=== PATIENT | male | born 1980 | race Caucasian/White ===

== ENCOUNTER → 2018-04-23 14:42 | Outpatient (CLI) | payer BC, SELFPAY ==
[2018-04-23 12:27] VITALS: BMI 21.1
== END ==
PROVIDERS: Family Provider Family Medicine; PCP Family Medicine; Referring Provider Physician Assistant Surgical; Visit Provider Physician Assistant Surgical
DX: J02.9 Acute pharyngitis, unspecified (principal)
CPT/HCPCS: 87081

== ENCOUNTER 2018-09-27 19:23 | Emergency (ER) | payer BC, SELFPAY ==
[2018-04-23 12:27] VITALS: BMI 21.1
[2018-09-27 19:24] VITALS: BP 139/90; PULSE 88; RESP 16; TEMP 36.8; O2SAT 97; BMI 20.4
--- NOTE | 2018-09-27 21:02 | ED.VIS.GEN ---
History of Present Illness Chief Complaint: Upper Extremity Injury Detail of Chief Complaint: Right forearm injury Informant: Patient Onset: Today Context: Gradual Onset Current Severity: Moderate Maximum Severity: Moderate Narrative: Patient states that he was bending over trying to nail a board onto some steps. He had his right hand on a railing. He lost his balance and fell forward, his left arm caught the railing and got twisted. He has pain and swelling to his right forearm. He is right-hand dominant. He has no paresthesias. Past Medical History - Allergies and Home Meds Allergies/Adverse Reactions: Allergies No Known Allergies Allergy (Verified 04/23/18 12:11) Primary Care Physician: Luis Riley MD [Primary Care Provider] - Prior records reviewed: Yes Past Medical History: - - Reviewed Smoking Status: Current every day smoker Drugs: - - History of narcotic abuse, currently on Suboxone. Review of Systems General: Denies: Chills, Fever Eyes: Denies: Visual changes - bilaterally ENT: Denies: Bilateral ear pain Cardiovascular: Denies: Chest pain Respiratory: Denies: Dyspnea Gastrointestinal: Denies: Abdominal pain Musculoskeletal: Reports: Arthralgias. Denies: Back pain Skin: Reports: Abrasions Neurological: Denies: Headache, Weakness, Parasthesia Hematologic: Denies: Easy bruising Allergy: Denies: Uticaria Physical Exam Vital Signs/Narrative: Vital Signs Temp Pulse Resp BP Pulse Ox 09/27/18 19:24 98.2 F 88 16 139/90 H 97 General: Well nourished, Well developed Head: Normocephalic ENT: Moist mucous membranes Neck: Supple Cardiovascular: Regular rate, Regular rhythm Respiratory: No distress, CTA bilaterally Abdomen: Soft, Nontender Extremities: Tenderness - Patient has palpable hematoma with tenderness over the volar right mid forearm. He has some superficial abrasions noted. He does have good distal pulses. He has flexion extension at the wrist and elbow without difficulty. There is currently no sign of compartment syndrome. Neurological: Oriented x3, Normal Strength, Normal Sensation Psychological: Normal affect Diagnostic/Tx/Re-eval Impressions Forearm X-Ray 09/27/18 21:08 IMPRESSION: Normal x-ray examination of the radius and ulna. Electronically Signed: Álvaro Jarrett DO at 21:28 EDT Tel , Service support , 09/27/18 21:08 Forearm 2 Views [RAD] Stat - Medical Decision Making Patient was given naproxen for pain. Test results discussed with the patient. He will continue to ice and elevate. He will be given naproxen for home. We discussed signs and symptoms of compartment syndrome for him to watch for. ED Disposition - Plan for ED Patient: Disposition: Home or Assisted Living Diagnosis: Crushing injury of right forearm Instructions: CONTUSION, Upper Extremity Prescriptions: Naproxen [Naprosyn] 500 mg PO BID PRN PRN #20 tablet PRN Reason: Pain Referrals: Luis Riley MD [Primary Care Provider] - As Needed
[2018-09-27] MEDS: Naproxen 500 MG Tablet PO (21:05)
--- NOTE | 2018-09-27 21:08 | RAD_ITS ---
STUDY: X-RAY - RIGHT RADIUS AND ULNA REASON FOR EXAM: Male, 38 years old. Arm swelling TECHNIQUE: 2 view(s) of the forearm. COMPARISON: None. FINDINGS: There is no demonstrated soft tissue swelling. Normal visualized radius. Normal visualized ulna. RAD/Forearm 2 Views IMPRESSION: Normal x-ray examination of the radius and ulna. Electronically Signed: Álvaro Jarrett DO at 21:28 EDT Tel , Service support ,
== END 2018-09-27 21:49 | disposition home or self-care (01) ==
PROVIDERS: Emergency Provider Emergency Medicine; Family Provider Family Medicine; PCP Family Medicine
DX: S57.81XA Crushing injury of right forearm, initial encounter (principal); S50.811A Abrasion of right forearm, initial encounter; W19.XXXA Unspecified fall, initial encounter; Y93.9 Activity, unspecified; Y92.9 Unspecified place or not applicable; F17.200 Nicotine dependence, unspecified, uncomplicated
CPT/HCPCS: 73090; 99283

== ENCOUNTER 2018-12-07 14:06 | Emergency (ER) | payer BC, SELFPAY ==
[2018-12-07 14:07] VITALS: BP 115/72; PULSE 86; RESP 16; TEMP 37.7; O2SAT 96; BMI 21.1
--- NOTE | 2018-12-07 14:15 | RAD_ITS ---
STUDY: X-RAY - LEFT FOOT CLINICAL: Male, 38 years old. Pain and swelling on the lateral aspect of the foot. TECHNIQUE: 3 view(s) of the foot. COMPARISON: None. FINDINGS: Normal talus, calcaneus, and tarsal bones. Normal visualized subtalar, talonavicular, calcaneocuboid, tarsal and tarsometatarsal articulations. Nondisplaced transverse fracture at the base of the fifth metatarsal. There is degenerative arthrosis of the metatarsophalangeal joint of the hallux . Normal tibial and fibular sesamoid bones. Normal interphalangeal joint of the great toe. Normal phalanges of the great toe. Normal second through fifth metatarsophalangeal joints. Normal interphalangeal joints and phalanges of the lesser toes. There is non-specific soft tissue swelling of the foot. RAD/Foot min 3 Views IMPRESSION: Nondisplaced transverse fracture at the base of the fifth metatarsal. Electronically Signed: Scooter English, at 14:50 EDT , Service support ,
--- NOTE | 2018-12-07 15:33 | ED.DEP ---
ED Disposition - Plan for ED Patient: Instructions: FRACTURE, Foot Referrals: Luis Riley MD [Primary Care Provider] - Cj Henriquez DO [STAFF PHYSICIAN] -
--- NOTE | 2018-12-07 15:35 | ED.VISSUMM ---
- ER Visit Summary Date of Service: 12/07/18 Chief Complaint: Left foot pain History of Present Illness: The patient is a 38 M presenting with left foot pain. Patient states he was running up the stairs last night. He states he fell and twisted his left foot. He woke up this morning and had persistent pain in his left foot and painful weightbearing. He did not hit his head or lose consciousness. He tried no medications at home. No other injuries. Physical Examination: Vitals are stable. Patient is afebrile. Alert no acute distress. HEENT exam is unremarkable. Neck is nontender Lungs are clear and equal bilaterally. Heart is regular rate and rhythm. Extremities tenderness along left fifth metatarsal with ecchymosis. Left ankle and knee are nontender. Normal pulses. Skin is warm and dry. No focal neurologic deficit. Remainder of exam is unremarkable. Emergency Department Course and Treatment: Left foot x-ray shows nondisplaced transverse fracture at the base of the fifth metatarsal. Patient is given crutches and boot orthosis and advised nonweightbearing. He declined pain medications. He is advised to use ice, elevation, NSAIDs. Advised to follow-up with [facility]. Advised return to ED for worsening complaints. Disposition: Discharge home Impression: Left fifth metatarsal fracture This note was generated with [employer] dictation software. It may contain incorrect words, spelling, and punctuation that were not noted in review of the chart prior to signing ED Disposition - Plan for ED Patient: Instructions: FRACTURE, Foot Referrals: Cj Henriquez DO [STAFF PHYSICIAN] - Luis Riley MD [Primary Care Provider] -
[2018-12-07 16:11] VITALS: BP 120/78; PULSE 87; RESP 14; O2SAT 100
== END 2018-12-07 16:11 | disposition home or self-care (01) ==
LOC: ED 15:38
PROVIDERS: Emergency Provider Emergency Medicine; Family Provider Family Medicine; PCP Family Medicine
DX: S92.355A Nondisplaced fracture of fifth metatarsal bone, left foot, initial encounter for closed fracture (principal); W10.9XXA Fall (on) (from) unspecified stairs and steps, initial encounter; Y93.02 Activity, running; Y92.9 Unspecified place or not applicable; Z72.0 Tobacco use
CPT/HCPCS: 73630; 99284

== ENCOUNTER → 2018-12-13 08:38 | Outpatient (CLI) | payer BC, SELFPAY ==
[2018-12-07 14:07] VITALS: BMI 21.1
--- NOTE | 2018-12-13 09:11 | CT_ITS ---
STUDY: CT LEFT FOOT REASON FOR EXAM: Male, 38 years old. Displaced fracture of the fifth metatarsal. Rolled foot one week ago while walking up steps. RADIATION DOSAGE (If Supplied By Facility): CTDIvol = ( 15.35 ) mGy, DLP = ( 357.60 ) mGycm TECHNIQUE: Thin section transaxial imaging of the foot was obtained, with sagittal and coronal reconstructed images. Individualized dose optimization techniques were used for this CT. COMPARISON: Left foot, December 07, 2018. FINDINGS: Normal talus, calcaneus, and tarsal bones. Normal visualized tibiotalar, subtalar, talonavicular, calcaneocuboid, tarsal and tarsometatarsal articulations. There is a nondisplaced transverse fracture through the base of the fifth metatarsal is noted on plain films. The first through fourth metatarsals are unremarkable. There is mild arthrosis of metatarsophalangeal joint of the great toe. Normal tibial and fibular sesamoid bones. Normal interphalangeal joint of the great toe. Normal phalanges of the great toe. Normal second through fifth metatarsophalangeal joints. Normal interphalangeal joints and phalanges of the lesser toes. The soft tissue structures are unremarkable. CT/Extremity Lower without Contra IMPRESSION: 1. Nondisplaced fracture of the base of the fifth metatarsal. 2. Mild degenerative changes of the first metatarsal phalangeal joint. Electronically Signed: Marcell Matthews DO at 20:36 EDT Tel [phone], Service support ,
--- NOTE | 2018-12-13 09:12 | RAD_ITS ---
STUDY: X-RAY CHEST REASON FOR EXAM: Male, 38 years old. Preoperative evaluation. TECHNIQUE: PA and lateral views of the chest. COMPARISON: None. FINDINGS: Hyperinflation. There is no demonstrated pleural abnormality. Normal size heart. Normal mediastinum and lorenzo. Normal visualized pulmonary arteries. Normal visualized aortic arch and descending thoracic aorta. Normal visualized thoracic spine. Normal visualized ribs, clavicles, and shoulders. There is no demonstrated abnormality of the visualized soft tissue structures of the upper abdomen. RAD/Chest PA and Lateral IMPRESSION: Hyperinflation. The lungs are clear. Electronically Signed: Scooter English, at 11:31 EDT , Service support ,
[2018-12-13 10:26] LABS: Absolute Lymphocyte Count 2.66 X10^3/uL (0.83-4.51); Absolute Neutrophil Count 5.5 X10^3/uL (2.0-7.7); Basophil# 0.07 X10^3/uL; Basophil% 0.8 % (0-1); Eosinophil# 0.16 X10^3/uL; Eosinophils% 1.7 % (0-5); Hematocrit 48.1 % (40-54); Hemoglobin 16.5 g/dL (13.0-16.5); Lymphocyte # 2.66 X10^3/ul (4.0); Lymphocyte % 28.8 % (19-41); Mean Corp Hgb Conc 34.3 g/dL (32-36); Mean Corpuscular Hgb 32.7 pg (27.0-32.0); Mean Corpuscular Volume 95.4 fL (80-94); Mean Platelet Vol. 10.1 fl (6.2-12.0); Monocyte# 0.78 X10^3/uL; Monocyte% 8.4 % (0-10); NRBC Flagged by Analyzer 0 % (0-5); Neutrophil # 5.54 X10^3/uL (2.7-7.7); Neutrophil % 59.9 % (47-70); Platelet Count 199 K/mm3 (150-450); RBC Distribution Width CV 12.3 % (11.6-14.6); RBC Distribution Width SD 43.4 fl (35.1-43.9); Red Blood Count 5.04 M/mm3 (4.6-6.2); White Blood Count 9.3 K/mm3 (4.4-11.0)
[2018-12-13 10:33] LABS: International Normalized Ratio 1.1; Prothrombin Time (Protime)PT. 13.8 SECONDS (11.7-14.9)
[2018-12-13 10:34] LABS: Partial Thromboplast Time 29.5 Seconds (24.1-36.2)
[2018-12-13 10:48] LABS: Anion Gap 6 (5-15); BUN 12 mg/dL (7-18); BUN/Creat Ratio 13.8 RATIO (10-20); Calcium,Total 9.3 mg/dL (8.5-10.1); Chloride 101 mmol/L (98-107); Creatinine, Serum 0.87 mg/dL (0.70-1.30); EST Glomerular Filtration Rate 104 mL/min (>60); Est Glom Filt Rate - Afr Amer 126 mL/min (>60); Glucose 85 mg/dL (74-106); Potassium 3.8 mmol/L (3.5-5.1); Sodium Level 137 mmol/L (136-145)
== END ==
PROVIDERS: Family Provider Family Medicine; PCP Family Medicine; Referring Provider Podiatrist Foot & Ankle Surgery; Visit Provider Podiatrist Foot & Ankle Surgery
DX: Z01.818 Encounter for other preprocedural examination (principal); F17.200 Nicotine dependence, unspecified, uncomplicated; S92.352A Displaced fracture of fifth metatarsal bone, left foot, initial encounter for closed fracture
CPT/HCPCS: 36415; 71046; 73700; 80048; 85025; 85610; 85730

== ENCOUNTER 2021-04-08 13:41 | Emergency (ER) | payer SELFPAY ==
[2021-04-08 13:42] VITALS: BP 120/82; PULSE 120; RESP 18; TEMP 36.1; O2SAT 98; BMI 19.8
[2021-04-08 16:09] LABS: Absolute Lymphocyte Count 1.94 X10^3/uL (0.83-4.51); Basophil# 0.06 X10^3/uL; Basophil% 0.6 % (0-1); Eosinophil# 0.07 X10^3/uL; Eosinophils% 0.7 % (0-5); Hematocrit 40.8 % (40-54); Lymphocyte # 1.94 X10^3/ul (0.83-4.51); Lymphocyte % 18.8 % (19-41); Mean Corp Hgb Conc 36.8 g/dL (32-36); Mean Corpuscular Hgb 40.7 pg (27.0-32.0); Mean Corpuscular Volume 110.6 fL (80-94); Mean Platelet Vol. 10.7 fl (6.2-12.0); Monocyte# 1.23 X10^3/uL; Monocyte% 11.9 % (0-10); NRBC Flagged by Analyzer 0 % (0-5); Neutrophil # 6.97 X10^3/uL (2.7-7.7); Neutrophil % 67.4 % (47-70); Platelet Count 219 K/mm3 (150-450); RBC Distribution Width SD 53.5 fl (35.1-43.9); Red Blood Count 3.69 M/mm3 (4.6-6.2); White Blood Count 10.3 K/mm3 (4.4-11.0)
[2021-04-08 16:35] LABS: Anion Gap 7 (5-15); BUN 5 mg/dL (7-18); BUN/Creat Ratio 7.7 RATIO (10-20); Calcium,Total 8.8 mg/dL (8.5-10.1); Chloride 102 mmol/L (98-107); Creatinine, Serum 0.65 mg/dL (0.70-1.30); EST Glomerular Filtration Rate 143 mL/min (>60); Est Glom Filt Rate - Afr Amer 173 mL/min (>60); Estimated Creatinine Clearance 145.38 ml/min; Glucose 102 mg/dL (74-106); Potassium 3.4 mmol/L (3.5-5.1); Sodium Level 137 mmol/L (136-145)
--- NOTE | 2021-04-08 16:38 | CT_ITS ---
STUDY: CT ABDOMEN AND PELVIS WITH CONTRAST REASON FOR EXAM: Male, 40 years old. Peritonitis. RADIATION DOSAGE (If Supplied By Facility): CTDIvol = ( 9.31 ) mGy, DLP = ( 641.81 ) mGycm TECHNIQUE: Transaxial images were obtained from the dome of the diaphragm to the symphysis pubis without oral contrast. IV 100mL Isovue-300 was administered. Sagittal and coronal images were reconstructed. Individualized dose optimization techniques were used for this CT. COMPARISON: None. FINDINGS: Minimal linear atelectasis at the right lung base. Lungs are otherwise clear. The visualized portions of the heart are within normal limits. Geographic fatty infiltration of the enlarged liver. No focal mass. 3 Normal spleen. Normal pancreas. Normal bilateral adrenal glands. There is a 2 mm nonobstructing calculus lower pole calyx of an otherwise normal right kidney. There is a 2 mm nonobstructing calculus lower pole of an otherwise normal left kidney. Normal visualized ureters. Normal visualized stomach. Normal small intestine. There is mild wall thickening of the sigmoid colon. The proximal colon is grossly normal. The appendix is visualized and appears normal. Normal abdominal aorta. Normal inferior vena cava. Normal retroperitoneum. Normal urinary bladder. Normal prostate no pelvic lymphadenopathy. No free air or free fluid is seen within the peritoneal cavity Normal abdominal wall. Normal osseous structures. CT/Abdomen/Pelvis W IV Cont ONLY IMPRESSION: 1. Bilateral nonobstructing renal calculi. There is no ureteral or urinary bladder abnormality. 2. Question sigmoid colitis. 3. Enlarged liver with geographic fatty infiltration. 4. Status post cholecystectomy. Electronically Signed: Marcell Matthews DO at 17:04 EST ,
[2021-04-08 16:39] VITALS: BP 106/84; PULSE 108; RESP 16; O2SAT 97
--- NOTE | 2021-04-08 16:39 | ED.VIS.GI ---
HPI HPI - GI History of Present Illness Chief Complaint: Abd Pain Informant: patient and parent Abdominal Pain/Flank Pain Onset: Weeks Context: Sudden Onset Timing: Continuous Quality: - (Intermittent) Location: Diffuse Current Severity: Mild Maximum Severity: Moderate Worsened by: Movement Relieved by: Nothing Nausea/Vomiting/Emesis GI Symptom: Positive for Nausea; Negative for Vomiting Diarrhea/Melena/Hematochezia GI Symptom: Negative for Diarrhea, Melena and Hematochezia Associated Symptoms Associated Symptoms: Negative for Dysuria, Frequency and Hematuria Narrative Narrative: Patient is a 40-year-old male who presents because of abdominal pain that started approximately 1 to 2 weeks ago. He has had increased abdominal girth over the past 1 month. He does admit to smoking 1 pack/day and averaging 8 drinks a day for the past 3 years. He denies history of liver disease, jaundice or ascites. He was told by his girlfriend that she thought he had blood when he urinated. He denies dysuria, frequency or urgency. He denies history of prostate problem. He does endorse night sweats for the past 2 months. He does not believe he has gained or lost any weight. He states his urine at times is dark. He denies history of hepatitis. Prior similar symptoms: No Recent Illness/Hospitalization: No [facility] Medical History Alcohol abuse Back pain Migraine Smoker SOB (shortness of breath) Home Medications buprenorphine-naloxone 1 film PO DAILY 03/18/15 [History Last Taken 12/07/18] amoxicillin-pot clavulanate 875 mg PO Q12H #20 tablet 04/08/21 [Rx Last Taken Unknown] hydrocodone-acetaminophen 1 tab PO Q6H PRN PRN 3 Days #10 tablet 04/08/21 [Rx Last Taken Unknown] Allergy/AdvReac Type Severity Reaction Status Date / Time No Known Allergies Allergy Verified 04/08/21 13:44 Family History Other Breast cancer Thyroid disorder Surgical History History of cholecystectomy Necks Fusion Social History (Updated 04/08/21 @ 16:[address] Steve Cardona MD) household members: significant other Smoking Status: Current every day smoker tobacco type: cigarettes alcohol intake: current alcohol intake frequency: 3 or more drinks per day substance use type: does not use ROS ROS ED Constitutional Constitutional ED: Reports sweats; Denies chills, fever(s), subjective or weight loss ENT ENT ED: Denies ear pain, rhinorrhea or sore throat Cardiovascular Cardiovascular: Denies chest pain, orthopnea, palpitations, paroxysmal nocturnal dyspnea or racing heartbeat Respiratory/Chest Respiratory/Chest: Denies cough, dyspnea, dyspnea on exertion, orthopnea, paroxysmal nocturnal dyspnea or sputum Gastrointestinal Gastrointestinal: Reports abdominal pain and nausea; Denies constipation, diarrhea, melena or vomiting Genitourinary Genitourinary ED: Reports hematuria; Denies dysuria or urinary frequency Musculoskeletal Musculoskeletal: Denies arthralgias, back pain, myalgias or neck pain Integumentary Denies abscess, Abrasions or rash Neurologic Neurologic: Denies headache(s) or weakness Psychiatric Psychiatric: Denies anxiety or depression Endocrine Endocrinology: Denies polydipsia, polyphagia or polyuria Hematologic/Lymphatic Hematologic/Lymphatic: Denies easy bleeding or easy bruising EXAM Physical Exam Const Vital Signs: 04/08/21 13:42 04/08/21 16:39 Temperature 96.9 F L Temperature Source Temporal Pulse Rate 120 H 108 H Respiratory Rate 18 16 Blood Pressure 120/82 H 106/84 H Blood Pressure Mean 94 91 Pulse Ox 98 97 Oxygen Delivery Method Room Air Room Air Positive well nourished and well developed; Negative for obese, cachectic, contractures or unkempt General Appearance ED: well developed and NAD; Negative for unkempt, cachectic, contractures or pallor Nutritional Appearance: Negative for cachectic or obese HEENT Reports TM's clear and moist mucous membranes HEENT Narrative: Nares patent. normocephalic and atraumatic Tympanic Membrane ED: Yes TM's clear Eyes PERRL and EOMs intact bilaterally General Eye ED: Yes scleral icterus; Negative for pale conjunctiva Neck no lymphadenopathy, supple and no JVD Resp normal respiratory effort and clear to auscultation bilaterally Cardio regular rate, regular rhythm, S1 normal heart sound, S2 normal heart sound and no murmurs GI no masses; Negative for non-tender or non-distended GI Narrative: There is an apparent fluid wave. There is appears to be shifting dullness to percussion as well. He has a reducible umbilical hernia. Inspection: abdominal distention Auscultation: hypoactive bowel sounds; Negative for normoactive bowel sounds Palpation: soft, tender other (Diffuse tenderness greater right than left.), guarding other (Bilaterally) and rebound tenderness present; Negative for rigid Back/Spine no CVA tenderness Back/Spine Narrative: Patient has scar noted to cervical fusion noted. Cervical Spine: Negative for cervical spine tenderness Thoracic Spine / Upper Back: Negative for thoracic spinal tenderness Lumbar Spine / Lower Back: Negative for lumbar spinal tenderness Extremity full ROM General Extremety ED: Negative for edema or tenderness General Extremity: Negative for edema Neuro CN's II-XII intact bilaterally and moves all extremities Sensorium / Orientation: alert, oriented to person, oriented to place and oriented to time Psych mental status grossly normal and thought process normal Appearance: Negative for unkempt Skin no wounds General Skin Exam: jaundice; Negative for pallor Lesions: no lesions Rashes: no rashes MDM MDM MDM Narrative Medical decision making narrative: Concern patient has liver failure due to alcohol use. Clinically he has peritonitis. Will obtain a CT to determine if there is any evidence of mass/malignancy. If CT confirms that there is a large ascites and no other abnormality will perform a diagnostic paracentesis to evaluate for spontaneous bacterial peritonitis. Nurse protocol was initiated. Additional labs were ordered. Lab Data Attestation: I reviewed the patient's lab results. Lab results narrative: CBC and differential are unremarkable. Basic metabolic panel is unremarkable. AST and ALT are elevated at 318 and 117 respectively with an alkaline phosphatase of 269. PT/INR is negative. CT reveals sigmoid colitis. Since he is an alcoholic cannot treat with Cipro metronidazole. Will treat with Augmentin. He was referred to Dr. Dewitt. Labs: Laboratory Results - last 24 hr 04/08/21 04/08/21 04/08/21 16:00 16:00 16:00 WBC 10.3 RBC 3.69 L Hgb 15.0 Hct 40.8 MCV 110.6 H MCH 40.7 H MCHC 36.8 H RDW Std Deviation 53.5 H RDW Coeff of Margaret 13.0 Plt Count 219 MPV 10.7 Immature Gran % (Auto) 0.600 Neut % (Auto) 67.4 Lymph % (Auto) 18.8 L [place] % (Auto) 11.9 H Eos % (Auto) 0.7 Baso % (Auto) 0.6 Absolute Neuts (auto) 7.0 Absolute Lymphs (auto) 1.94 Nucleated RBC % 0 PT INR Sodium 137 Potassium 3.4 L Chloride 102 Carbon Dioxide 28.0 Anion Gap 7 BUN 5 L Creatinine 0.65 L Estim Creat Clear Calc 145.38 Est GFR (MDRD) Af Amer 173 Est GFR (MDRD) Non-Af 143 BUN/Creatinine Ratio 7.7 L Glucose 102 Calcium 8.8 Total Bilirubin 0.90 Direct Bilirubin 0.47 H AST 318 H ALT 117 H Alkaline Phosphatase 269 H Total Protein 8.2 Albumin 3.0 L Globulin 5.2 H Lipase 69 L 04/08/21 17:15 WBC RBC Hgb Hct MCV MCH MCHC RDW Std Deviation RDW Coeff of Margaret Plt Count MPV Immature Gran % (Auto) Neut % (Auto) Lymph % (Auto) [place] % (Auto) Eos % (Auto) Baso % (Auto) Absolute Neuts (auto) Absolute Lymphs (auto) Nucleated RBC % PT 14.7 INR 1.2 Sodium Potassium Chloride Carbon Dioxide Anion Gap BUN Creatinine Estim Creat Clear Calc Est GFR (MDRD) Af Amer Est GFR (MDRD) Non-Af BUN/Creatinine Ratio Glucose Calcium Total Bilirubin Direct Bilirubin AST ALT Alkaline Phosphatase Total Protein Albumin Globulin Lipase Radiography Diagnostic Testing: Clinical Impression(s) from Imaging Studies Abdomen/Pelvis CT 04/08/21 16:38 IMPRESSION: 1. Bilateral nonobstructing renal calculi. There is no ureteral or urinary bladder abnormality. 2. Question sigmoid colitis. 3. Enlarged liver with geographic fatty infiltration. 4. Status post cholecystectomy. Electronically Signed: Marcell Matthews DO at 17:04 EST Reading Location ID and State: [facility] / [place] Tel [phone], Service support , Discharge Plan Triage Chief Complaint: Abd Pain ED Provider: Steve Cardona Dx/Rx/DC Orders Clinical Impression: Colitis, Alcoholism Instructions: ED Understanding Colitis Prescriptions: New amoxicillin-pot clavulanate [amoxicillin-pot clavulanate] 875 MG tablet 875 mg PO Q12H Qty: 20 RF: 0 hydrocodone-acetaminophen [hydrocodone-acetaminophen] 1 TABLET tablet 1 tab PO Q6H PRN PRN (Reason: Pain) 3 Days Qty: 10 RF: 0 No Action buprenorphine-naloxone 1 EACH film 1 film PO DAILY RF: 0 Primary Care Provider: Luis Riley Referrals: Alex Dewitt DO [STAFF PHYSICIAN] - 1-2 Weeks Luis Riley MD [Primary Care Provider] - 3-5 Days Disposition Disposition: Home, Self Care
[2021-04-08 17:13] LABS: AST(SGOT) 318 U/L (15-37); Alanine Aminotransfer ALT/SGPT 117 U/L (16-61); Alkaline Phosphatase 269 U/L (45-117); Bilirubin, Direct 0.47 mg/dL (0.00-0.30); Globulin 5.2 g/dL (2.2-4.2); Lipase 69 U/L (73-393); Protein, Total 8.2 g/dL (6.4-8.2)
[2021-04-08 17:40] LABS: International Normalized Ratio 1.2; Prothrombin Time (Protime)PT. 14.7 SECONDS (11.7-14.9)
[2021-04-08] MEDS: Ketorolac 15 MG/ML Vial IV (17:43)
[2021-04-08] MEDS: Amox/Clavulanate 875 MG Tablet PO (18:05)
[2021-04-08 18:11] VITALS: BP 127/84; PULSE 95; RESP 16; O2SAT 99
[2021-04-08 18:26] LABS: Lactic Acid 2.2 mmol/L (0.4-1.9)
[2021-04-08 21:21] LABS: Reflex Lactate? Y
== END 2021-04-08 18:11 | disposition home or self-care (01) ==
PROVIDERS: Emergency Provider Emergency Medicine; PCP Family Medicine; Visit Provider Emergency Medicine
DX: K52.9 Noninfective gastroenteritis and colitis, unspecified (principal); F10.20 Alcohol dependence, uncomplicated; R11.0 Nausea; F17.210 Nicotine dependence, cigarettes, uncomplicated
CPT/HCPCS: 74177; 80048; 80076; 83605; 83690; 85025; 85610; 96374; 99284; Q9967; A4216

== ENCOUNTER 2021-04-26 16:17 | Observation (INO) | payer MEDICAID, SELFPAY ==
[2021-04-26 16:18] VITALS: BP 135/91; PULSE 120; RESP 18; TEMP 36; O2SAT 99; BMI 21.7
--- NOTE | 2021-04-26 16:44 | EDS_ITS ---
HPI History of Present Illness Chief Complaint: Substance Abuse Informant: patient Narrative Narrative: Patient here for alcohol assistance. He has been in contact with 180. Alcoholic choices liquor drinks up to 1 L every 1.5 days. Morning tremors. No withdrawal seizures. He has been drinking like this for years. He was seen last month on the for abdominal pain with alcohol. No pancreatitis on CT head sigmoid diverticulitis treated with Augmentin. She still has discomfort there. No fevers. Been vomiting multiple times a day. He is able to hold down his liquor however. Yesterday diarrhea. Denies bloody vomiting or diarrhea. Urine is darker. Last drink was 4 PM today. He is on Suboxone for history of opiate dependence. He was sent here through 1 ED for evaluation and admission. He denies any homicidal or suicidal ideations. He is in agreement with the plan of care for admission. Prior similar symptoms: Yes PFSH PFS Medical History Alcohol abuse Anxiety Back pain Depression Migraine Smoker SOB (shortness of breath) Home Medications buprenorphine-naloxone 1 film PO DAILY 03/18/15 [History Last Taken 04/26/21] Allergy/AdvReac Type Severity Reaction Status Date / Time No Known Allergies Allergy Verified 04/26/21 16:20 Family History Other Breast cancer Thyroid disorder Surgical History History of cholecystectomy Necks Fusion Social History household members: significant other Smoking Status: Current every day smoker tobacco type: cigarettes alcohol intake: current alcohol intake frequency: 3 or more drinks per day substance use type: does not use ROS ROS ED Constitutional Constitutional ED: Denies chills, fever(s) or sweats Eyes Eyes: Denies change in vision ENT ENT ED: Denies dysphagia or sore throat Cardiovascular Cardiovascular: Denies chest pain, leg edema, palpitations or racing heartbeat Respiratory/Chest Respiratory/Chest: Denies cough, dyspnea or dyspnea on exertion Gastrointestinal Gastrointestinal: Reports abdominal pain, diarrhea, nausea and vomiting Genitourinary Genitourinary ED: Denies dysuria, hematuria or urinary frequency Musculoskeletal Musculoskeletal: Denies back pain, extremity pain or neck pain Integumentary Denies rash or wounds Neurologic Neurologic: Denies headache(s), paresthesias or weakness EXAM Physical Exam Const Vital Signs: 04/26/21 16:18 04/26/21 18:35 04/26/21 19:07 Temperature 96.8 F L 96.8 F L Temperature Source Temporal Temporal Pulse Rate 120 H 115 H 115 H Respiratory Rate 18 15 16 Blood Pressure 135/91 H 122/91 H 122/91 H Blood Pressure Mean 105 101 101 Pulse Ox 99 98 98 Oxygen Delivery Method Room Air Room Air Room Air Positive well nourished and well developed General Appearance ED: well developed and NAD HEENT Reports dry mucous membranes normocephalic and atraumatic Mouth ED: Yes dry mucous membranes Mouth: dry mucous membranes Eyes PERRL, EOMs intact bilaterally and conjunctivae normal General Eye ED: Yes normal appearance of both eyes Neck no lymphadenopathy and supple General: Negative for tenderness Chest Wall Chest: Negative for tenderness Resp normal respiratory effort and normal air movement Effort and Inspection: symmetric chest movement; Negative for respiratory distress Cardio regular rhythm and no murmurs Rate: tachycardic Peripheral Pulses: pulses 2+ throughout GI normal to inspection, nondistended, normoactive bowel sounds GI Narrative: Tenderness infraumbilical, mild distention, discussed no guarding or rebound. Palpation: Negative for guarding or rebound tenderness present Back/Spine no CVA tenderness and no thoracic nor lumbar tenderness Extremity normal to inspection General Extremety ED: Negative for edema or tenderness General Extremity: Negative for edema Neuro oriented x3 and no sensory deficits noted Sensorium / Orientation: awake and alert Skin no rashes or lesions noted and no wounds MDM MDM MDM Narrative Medical decision making narrative: Patient with a nonsurgical abdomen on exam. With his vomiting diarrhea was given IV fluids, abdominal labs were obtained th ere is no pancreatitis he has alcoholic hepatitis however labs more improved from his last evaluation on the . Tox screen was negative. Alcohol at 72. Nausea was improved he was drinking in the ED and eating a little bit. He started get more tremorous continue tachycardia therefore 2 mg IV Ativan was ordered. Reevaluate his she was more comfortable and nontoxic. He does want assistance for alcohol. I spoke with hospitalist Dr. Kimbrough for admission. Potassium was 2.9 which was orally replaced in the ED. Lab Data Attestation: I reviewed the patient's lab results. Labs: Laboratory Results - last 24 hr 04/26/21 04/26/21 04/26/21 16:40 16:40 16:53 WBC RBC Hgb Hct MCV MCH MCHC RDW Std Deviation RDW Coeff of Margaret Plt Count MPV Immature Gran % (Auto) Neut % (Auto) Lymph % (Auto) [place] % (Auto) Eos % (Auto) Baso % (Auto) Absolute Neuts (auto) Absolute Lymphs (auto) Nucleated RBC % Sodium 132 L Potassium 2.9 L Chloride 91 L Carbon Dioxide 26.0 Anion Gap 15 BUN 5 L Creatinine 0.94 Estim Creat Clear Calc 107.23 Est GFR (MDRD) Af Amer 114 Est GFR (MDRD) Non-Af 94 BUN/Creatinine Ratio 5.3 L Glucose 152 H Calcium 8.9 Total Bilirubin 1.60 H AST 266 H ALT 87 H Alkaline Phosphatase 326 H Total Protein 8.7 H Albumin 3.2 Globulin 5.5 H Albumin/Globulin Ratio 0.6 L Lipase 179 Urine Color Alissa Urine Clarity Clear Urine pH 6.5 Ur Specific [place] 1.015 Urine Protein 15 H Urine Glucose (UA) Normal Urine Ketones Negative Urine Occult Blood 25 H Urine Nitrite Negative Urine Bilirubin 1 H Urine Urobilinogen 12 H Ur Leukocyte Esterase 25 H Urine RBC 0 SEEN Urine WBC 0-5 SEEN Ur Squamous Epith Cells 0-5 SEEN Urine Bacteria 0 SEEN Urine Mucus 1+ Urine Opiates Screen NEGATIVE Urine Methadone Screen NEGATIVE Ur Barbiturates Screen NEGATIVE Ur Phencyclidine Scrn NEGATIVE Ur Amphetamines Screen NEGATIVE U Methamphetamin-MDMA NEGATIVE U Benzodiazepines Scrn NEGATIVE Urine Cocaine Screen NEGATIVE U Cannabinoids Screen NEGATIVE Ur Drug Screen Comment Ethyl Alcohol 04/26/21 04/26/21 16:53 16:53 WBC 12.1 H RBC 4.20 L Hgb 16.5 Hct 45.8 MCV 109.0 H MCH 39.3 H MCHC 36.0 RDW Std Deviation 51.6 H RDW Coeff of Margaret 12.9 Plt Count 159 MPV 11.3 Immature Gran % (Auto) 0.400 Neut % (Auto) 80.7 H Lymph % (Auto) 10.6 L [place] % (Auto) 8.0 Eos % (Auto) 0.0 Baso % (Auto) 0.3 Absolute Neuts (auto) 9.7 H Absolute Lymphs (auto) 1.28 Nucleated RBC % 0 Sodium Potassium Chloride Carbon Dioxide Anion Gap BUN Creatinine Estim Creat Clear Calc Est GFR (MDRD) Af Amer Est GFR (MDRD) Non-Af BUN/Creatinine Ratio Glucose Calcium Total Bilirubin AST ALT Alkaline Phosphatase Total Protein Albumin Globulin Albumin/Globulin Ratio Lipase Urine Color Urine Clarity Urine pH Ur Specific [place] Urine Protein Urine Glucose (UA) Urine Ketones Urine Occult Blood Urine Nitrite Urine Bilirubin Urine Urobilinogen Ur Leukocyte Esterase Urine RBC Urine WBC Ur Squamous Epith Cells Urine Bacteria Urine Mucus Urine Opiates Screen Urine Methadone Screen Ur Barbiturates Screen Ur Phencyclidine Scrn Ur Amphetamines Screen U Methamphetamin-MDMA U Benzodiazepines Scrn Urine Cocaine Screen U Cannabinoids Screen Ur Drug Screen Comment Ethyl Alcohol 72.0 Discharge Plan Dx/Rx/DC Orders Clinical Impression: Alcohol dependence, Alcoholic hepatitis, Acute hypokalemia, Nausea and vomiting Disposition Disposition: Acute Care Hospital [facility] Discharge Date/Time: 04/26/21 19:41
[2021-04-26 16:54] LABS: Bacteria 0 SEEN /hpf (None Seen); Red Blood Cells-Urine 0 SEEN /hpf (0-5)
[2021-04-26] MEDS: Ondansetron 4 MG/2 ML Vial IV (16:59)
[2021-04-26] MEDS: 0.9% Normal Saline 1,000 ML 1000 ML IV (16:59)
[2021-04-26 17:24] LABS: Color, Urine Amber (Yellow); Glucose, Dipstick Normal (Normal); Ketone-Dipstick Negative (Negative); Leukocyte Esterase-Dipstick 25 /ul (Negative); Nitrite-Dipstick Negative (Negative); Occult Blood-Urine 25 /ul (Negative); Protein-Dipstick 15 mg/dl (Negative); Specific Gravity, Urine 1.015 (1.002-1.030); Urine Clarity Clear (Clear); Urine Urobilinogen 12 mg/dl (Normal); Urine pH 6.5 (5.0 - 8.0)
[2021-04-26 17:28] LABS: Urine Bilirubin Dipstick 1 mg/dL (Negative)
[2021-04-26] MEDS: Ketorolac 15 MG/ML Vial IV (17:36)
--- NOTE | 2021-04-26 17:36 | CM.ED ---
Social Work Consult: Substance Abuse Referral source: Self referral. Met with patient in room. Introduced self and social media director role. Patient agreeable to speak with this social media director. Patient is seeking medical management of withdrawal symptoms from Alcohol. Patient reports to be active with [facility] and a local AA group. Patient states plans to follow up with [facility] after discharge from [facility]. Patient with no questions and verbally agreeing to [facility] contract[facility] updated on patient admission. Ang Patton MSW, [employer]PHANIES
[2021-04-26 17:38] LABS: Mucous, Urine 1+ /hpf (<or=2+); Squamous Epithelial Cells - UA 0-5 SEEN /hpf (0-5); White Blood Cells 0-5 SEEN /hpf (0-5)
[2021-04-26 17:43] LABS: ALB/GLOB Ratio 0.6 RATIO (0.9-2.4); AST(SGOT) 266 U/L (15-37); Alanine Aminotransfer ALT/SGPT 87 U/L (16-61); Albumin, Serum 3.2 g/dL (3.2-5.0); Alkaline Phosphatase 326 U/L (45-117); Anion Gap 15 (5-15); BUN 5 mg/dL (7-18); BUN/Creat Ratio 5.3 RATIO (10-20); Calcium,Total 8.9 mg/dL (8.5-10.1); Chloride 91 mmol/L (98-107); Creatinine, Serum 0.94 mg/dL (0.70-1.30); EST Glomerular Filtration Rate 94 mL/min (>60); Est Glom Filt Rate - Afr Amer 114 mL/min (>60); Estimated Creatinine Clearance 107.23 ml/min; Globulin 5.5 g/dL (2.2-4.2); Glucose 152 mg/dL (74-106); Lipase 179 U/L (73-393); Potassium 2.9 mmol/L (3.5-5.1); Protein, Total 8.7 g/dL (6.4-8.2); Sodium Level 132 mmol/L (136-145)
[2021-04-26] MEDS: Potassium Chloride Oral Tablet 20 MEQ 40 MEQ PO (17:52)
[2021-04-26 17:57] LABS: Absolute Lymphocyte Count 1.28 X10^3/uL (0.83-4.51); Absolute Neutrophil Count 9.7 X10^3/uL (2.0-7.7); Basophil# 0.04 X10^3/uL; Basophil% 0.3 % (0-1); Hematocrit 45.8 % (40-54); Hemoglobin 16.5 g/dL (13.0-16.5); Lymphocyte # 1.28 X10^3/ul (0.83-4.51); Lymphocyte % 10.6 % (19-41); Mean Corpuscular Hgb 39.3 pg (27.0-32.0); Mean Platelet Vol. 11.3 fl (6.2-12.0); Monocyte# 0.97 X10^3/uL; NRBC Flagged by Analyzer 0 % (0-5); Neutrophil # 9.71 X10^3/uL (2.7-7.7); Neutrophil % 80.7 % (47-70); Platelet Count 159 K/mm3 (150-450); RBC Distribution Width CV 12.9 % (11.6-14.6); RBC Distribution Width SD 51.6 fl (35.1-43.9); White Blood Count 12.1 K/mm3 (4.4-11.0)
[2021-04-26 18:30] LABS: Amphetamine Urine NEGATIVE (<1000 ng/mL); Barbiturate Urine NEGATIVE (< 200 ng/mL); Benzodiazepine Urine NEGATIVE (< 200 ng/mL); Cocaine Urine NEGATIVE (< 300 ng/mL); Ecstacy Urine NEGATIVE (< 500 ng/mL); Methadone Urine NEGATIVE (< 300 ng/mL); Opiates Urine NEGATIVE (< 300 ng/mL); PCP Urine NEGATIVE (< 25 ng/mL); THC Urine NEGATIVE (< 50 ng/mL); Vista UDS pH Range 6
[2021-04-26 18:35] VITALS: BP 122/91; PULSE 115; RESP 15; O2SAT 98
[2021-04-26] MEDS: LORazepam 2 MG/ML Syringe IV (18:41)
[2021-04-26 19:07] VITALS: BP 122/91; PULSE 115; RESP 16; TEMP 36; O2SAT 98
--- NOTE | 2021-04-26 19:11 | CT_ITS ---
STUDY: CT Abdomen And Pelvis W/ Contrast Injection 04/26/2021 9:33 PM REASON FOR EXAM: Male, 40 years old. Pain x months, alcoholic hepatitis.abdominal pain TECHNIQUE: Transaxial images were obtained with oral contrast, and with Oral and amp; IV Gastrografin and amp; 100mL Isovue-300 intravenous contrast. Individualized dose optimization techniques were used for this CT. COMPARISON: Apr 08 2021 4:47pm . FINDINGS: The visualized lung bases are unremarkable. The visualized portions of the heart are within normal limits. There is decreased attenuation of the liver consistent with steatosis. There are surgical clips in the gallbladder fossa consistent with a prior cholecystectomy. Normal spleen. Normal pancreas.There is hepatomegaly with diffuse hepatic enlargement. Normal bilateral adrenal glands. Stable hypodensity of the right kidney. Non obstructive 1 to 2 mm left renal parenchymal stones. Normal visualized stomach. Normal small intestine. Stool throughout the colon. The appendix is visualized and appears normal. There are calcifications of the abdominal aorta. This is consistent for atherosclerotic disease. There is no abdominal aortic aneurysm. Normal inferior vena cava. Subcentimeter mesenteric lymph nodes. Normal urinary bladder. There is an umbilical hernia containing fat. Normal osseous structures. IMPRESSION: (NOT LISTED IN ORDER OF SIGNIFICANCE) Fatty liver. Enlarged liver. Other findings as above. Electronically Signed: Andrade Fan MD at 21:36 [facility] , CT/Abdomen/Pelvis WITH Contrast
--- NOTE | 2021-04-26 19:12 | HP.PCM.HOS_ITS ---
HPI - General General Date of Admission: 04/26/21 Date of Service: 04/26/21 Chief Complaint: Alcohol withdrawal HPI Narrative VANESSA DAILEY, is a 40 M who presents presents seeking treatment for alcohol withdrawal. Patient drinks he liter to 1.5 L of liquor per day. Patient was here last month for colitis and completed antibiotics. Since then he states that his abdomen has progressively gotten more distended. He has no prior hi story of cirrhosis but not evaluated for it. He stated he was given the number of Dr. Dewitt last admission and he called their office but never received a phone call back. Patient received lorazepam in the emergency room. [facility] Medical History Alcohol abuse Anxiety Back pain Depression Migraine Smoker SOB (shortness of breath) Home Medications buprenorphine-naloxone 1 film PO DAILY 03/18/15 [History Last Taken 04/26/21] Allergy/AdvReac Type Severity Reaction Status Date / Time No Known Allergies Allergy Verified 04/26/21 16:20 Family History Other Breast cancer Thyroid disorder Surgical History History of cholecystectomy Necks Fusion Social History household members: significant other Smoking Status: Current every day smoker tobacco type: cigarettes alcohol intake: current alcohol intake frequency: 3 or more drinks per day substance use type: does not use ROS ROS Narrative All review of systems were negative except as mentioned above in the history of present illness and the other review of systems. Vital Signs Vital Signs Vital Signs: 04/26/21 16:18 04/26/21 18:35 04/26/21 19:07 Temperature 36.0 C L 36.0 C L Temperature Source Temporal Temporal Pulse Rate 120 H 115 H 115 H Respiratory Rate 18 15 16 Blood Pressure 135/91 H 122/91 H 122/91 H Blood Pressure Mean 105 101 101 Pulse Ox 99 98 98 Oxygen Delivery Method Room Air Room Air Room Air Weight Weight: 72.575 kg Body Mass Index (BMI) 21.7 Physical Exam Const alert Constitutional Narrative: Gaunt appearance General Appearance: cooperative HEENT normocephalic and head/scalp atraumatic Resp normal respiratory effort, no retractions, no use of accessory muscles and clear to auscultation bilaterally Cardio regular rate, regular rhythm, S1 normal heart sound and S2 normal heart sound GI normal to inspection, nondistended, normoactive bowel sounds and soft to palpation GI Narrative: Distended. Neuro Sensorium / Orientation: awake and alert Psych affect normal Results Lab / Micro Data Result Diagrams: 04/26/21 16:53 04/26/21 16:53 Labs: Laboratory Results - last 24 hr 04/26/21 16:40: Urine Color Alissa, Urine Clarity Clear, Urine pH 6.5, Ur Specific [place] 1.015, Urine Protein 15 H, Urine Glucose (UA) Normal, Urine Ketones Negative, Urine Occult Blood 25 H, Urine Nitrite Negative, Urine Bilirubin 1 H, Urine Urobilinogen 12 H, Ur Leukocyte Esterase 25 H, Urine RBC 0 SEEN, Urine WBC 0-5 SEEN, Ur Squamous Epith Cells 0-5 SEEN, Urine Bacteria 0 SEEN, Urine Mucus 1+ 04/26/21 16:40: Urine Opiates Screen NEGATIVE, Urine Methadone Screen NEGATIVE, Ur Barbiturates Screen NEGATIVE, Ur Phencyclidine Scrn NEGATIVE, Ur Amphetamines Screen NEGATIVE, U Methamphetamin-MDMA NEGATIVE, U Benzodiazepines Scrn NEGATIVE, Urine Cocaine Screen NEGATIVE, U Cannabinoids Screen NEGATIVE, Ur Drug Screen Comment 04/26/21 16:53: Sodium 132 L, Potassium 2.9 L, Chloride 91 L, Carbon Dioxide 26.0, Anion Gap 15, BUN 5 L, Creatinine 0.94, Estim Creat Clear Calc 107.23, Est GFR (MDRD) Af Amer 114, Est GFR (MDRD) Non-Af 94, BUN/Creatinine Ratio 5.3 L, Glucose 152 H, Calcium 8.9, Total Bilirubin 1.60 H, AST 266 H, ALT 87 H, Alkaline Phosphatase 326 H, Total Protein 8.7 H, Albumin 3.2, Globulin 5.5 H, Albumin/Globulin Ratio 0.6 L, Lipase 179 04/26/21 16:53: Ethyl Alcohol 72.0 04/26/21 16:53: WBC 12.1 H, RBC 4.20 L, Hgb 16.5, Hct 45.8, MCV 109.0 H, MCH 39.3 H, MCHC 36.0, RDW Std Deviation 51.6 H, RDW Coeff of Margaret 12.9, Plt Count 159, MPV 11.3, Immature Gran % (Auto) 0.400, Neut % (Auto) 80.7 H, Lymph % (Auto) 10.6 L, [place] % (Auto) 8.0, Eos % (Auto) 0.0, Baso % (Auto) 0.3, Absolute Neuts (auto) 9.7 H, Absolute Lymphs (auto) 1.28, Nucleated RBC % 0 Assessment & Plan Assessment/Plan (1) Alcoholic hepatitis: QUALIFIERS: Ascites presence: with ascites Qualified Code(s): K70.11 - Alcoholic hepatitis with ascites (2) Alcohol dependence: QUALIFIERS: Substance use status: uncomplicated Qualified Code(s): F10.20 - Alcohol dependence, uncomplicated (3) Abdominal pain: QUALIFIERS: Abdominal location: generalized Qualified Code(s): R10.84 - Generalized abdominal pain (4) Hypokalemia: PLAN: 1. Acute alcohol withdrawal Phenobarbital as well as other adjunctive agents for somatic complaints associated with his withdrawal. Patient has been in touch with 180 but no definitive plan has been established as of yet. 2. Acute alcohol hepatitis Patient's total bilirubin is at 1.6. Patient is status post cholecystectomy. AST and ALT are down from last month and alk phos is still elevated. We will check a CAT scan to evaluate this but also patient does have clinically ascites. I told the patient that the may very well have underlying cirrhosis but that will need further biopsy and recommended that he again try to contact Dr. Dewitt when he is discharged. I did discuss with him what cirrhosis entails regards to scar tissue and treatment is discontinuing the offending alcohol and definitive treatment would be a liver transplant which she would not be a candidate at this time. 3. Abdominal pain Concerning for ascites, doubt SBP CAT scan ordered 4. Hypokalemia Given to him in emergency room Follow-up 6. VTE prophylaxis: Early ambulation. 7. COVID-19 vaccination status: Patient is not contracted COVID-19 that he is aware of nor is he been vaccinated. I did encourage that he do get vaccinated. Charges/Coding Visit Charges Inpatient E&M: 72361 Init Hosp L2
[2021-04-26 19:53] VITALS: BMI 21.8
[2021-04-26 19:59] VITALS: BP 128/91; PULSE 122; RESP 16; TEMP 36.7; O2SAT 97
[2021-04-26] MEDS: Phenobarbital 32.4 MG Tablet PO (20:41)
[2021-04-26] MEDS: hydrOXYzine PAM 25 MG Capsule 50 MG PO (20:42)
[2021-04-26] MEDS: 0.9% Saline Lock 10 ML Syringe IV (20:42)
[2021-04-27] VITALS (7 sets, daily range): BP systolic 102–124; BP diastolic 75–89; PULSE 109–130; RESP 16–18; TEMP 36.3–37.2; O2SAT 94–98
[2021-04-27] MEDS: Phenobarbital 32.4 MG Tablet PO ×7 (00:37→23:57)
[2021-04-27] MEDS: hydrOXYzine PAM 25 MG Capsule 50 MG PO ×4 (00:45→20:17)
[2021-04-27 05:57] LABS: ALB/GLOB Ratio 0.6 RATIO (0.9-2.4); AST(SGOT) 173 U/L (15-37); Alanine Aminotransfer ALT/SGPT 60 U/L (16-61); Albumin, Serum 2.4 g/dL (3.2-5.0); Alkaline Phosphatase 244 U/L (45-117); Anion Gap 6 (5-15); BUN 7 mg/dL (7-18); BUN/Creat Ratio 11.4 RATIO (10-20); Calcium,Total 8.3 mg/dL (8.5-10.1); Chloride 97 mmol/L (98-107); Creatinine, Serum 0.62 mg/dL (0.70-1.30); EST Glomerular Filtration Rate 153 mL/min (>60); Est Glom Filt Rate - Afr Amer 186 mL/min (>60); Estimated Creatinine Clearance 163.59 ml/min; Globulin 4.2 g/dL (2.2-4.2); Glucose 83 mg/dL (74-106); Potassium 3.9 mmol/L (3.5-5.1); Protein, Total 6.6 g/dL (6.4-8.2); Sodium Level 133 mmol/L (136-145)
[2021-04-27] MEDS: Dicyclomine 10 MG Capsule 20 MG PO ×2 (06:33→14:55)
[2021-04-27] MEDS: Thiamine Hydrochloride 100 MG Tablet PO (08:54)
[2021-04-27] MEDS: Folic Acid 1 MG Tablet PO (08:54)
[2021-04-27] MEDS: Ibuprofen 400 MG Tablet PO ×3 (09:00→20:18)
[2021-04-27] MEDS: Gabapentin 300 MG Capsule PO ×2 (09:00→17:06)
--- NOTE | 2021-04-27 11:33 | PN.HOSP_ITS ---
Subjective Subjective Still with abdominal pain. Objective Data Objective Data Vital Signs: Vital Signs Temp Pulse Resp BP Pulse Ox 36.8 C 121 H 18 115/82 H 98 04/27/21 09:35 04/27/21 09:35 04/27/21 09:35 04/27/21 09:35 04/27/21 09:35 Oxygen Delivery Method Room Air Weight: 73.028 kg Body Mass Index (BMI) 21.8 Intake & Output: Intake and Output for Last 24 Hours 04/25/21 04/26/21 04/27/21 23:59 23:59 23:59 Intake Total 1000 / 1200 200 / 200 Output Total 200 / 200 Balance 1000 / 1200 0 / 0 Lab / Micro Data Result Diagrams: 04/26/21 16:53 04/27/21 04:02 Labs: Laboratory Results - last 24 hr 04/26/21 16:40: Urine Color Alissa, Urine Clarity Clear, Urine pH 6.5, Ur Specific [place] 1.015, Urine Protein 15 H, Urine Glucose (UA) Normal, Urine Ketones Negative, Urine Occult Blood 25 H, Urine Nitrite Negative, Urine Bilirubin 1 H, Urine Urobilinogen 12 H, Ur Leukocyte Esterase 25 H, Urine RBC 0 SEEN, Urine WBC 0-5 SEEN, Ur Squamous Epith Cells 0-5 SEEN, Urine Bacteria 0 SEEN, Urine Mucus 1+ 04/26/21 16:40: Urine Opiates Screen NEGATIVE, Urine Methadone Screen NEGATIVE, Ur Barbiturates Screen NEGATIVE, Ur Phencyclidine Scrn NEGATIVE, Ur Amphetamines Screen NEGATIVE, U Methamphetamin-MDMA NEGATIVE, U Benzodiazepines Scrn NEGATIVE, Urine Cocaine Screen NEGATIVE, U Cannabinoids Screen NEGATIVE, Ur Drug Screen Comment 04/26/21 16:53: Sodium 132 L, Potassium 2.9 L, Chloride 91 L, Carbon Dioxide 26 .0, Anion Gap 15, BUN 5 L, Creatinine 0.94, Estim Creat Clear Calc 107.23, Est GFR (MDRD) Af Amer 114, Est GFR (MDRD) Non-Af 94, BUN/Creatinine Ratio 5.3 L, Glucose 152 H, Calcium 8.9, Total Bilirubin 1.60 H, AST 266 H, ALT 87 H, Alkaline Phosphatase 326 H, Total Protein 8.7 H, Albumin 3.2, Globulin 5.5 H, Albumin/Globulin Ratio 0.6 L, Lipase 179 04/26/21 16:53: Ethyl Alcohol 72.0 04/26/21 16:53: WBC 12.1 H, RBC 4.20 L, Hgb 16.5, Hct 45.8, MCV 109.0 H, MCH 39.3 H, MCHC 36.0, RDW Std Deviation 51.6 H, RDW Coeff of Margaret 12.9, Plt Count 159, MPV 11.3, Immature Gran % (Auto) 0.400, Neut % (Auto) 80.7 H, Lymph % (Auto) 10.6 L, [place] % (Auto) 8.0, Eos % (Auto) 0.0, Baso % (Auto) 0.3, Absolute Neuts (auto) 9.7 H, Absolute Lymphs (auto) 1.28, Nucleated RBC % 0 04/27/21 04:02: Sodium 133 L, Potassium 3.9, Chloride 97 L, Carbon Dioxide 30.0, Anion Gap 6, BUN 7, Creatinine 0.62 L, Estim Creat Clear Calc 163.59, Est GFR (MDRD) Af Amer 186, Est GFR (MDRD) Non-Af 153, BUN/Creatinine Ratio 11.4, Glucose 83, Calcium 8.3 L, Total Bilirubin 1.60 H, AST 173 H, ALT 60, Alkaline Phosphatase 244 H, Total Protein 6.6, Albumin 2.4 L, Globulin 4.2, Albumin/Globulin Ratio 0.6 L Radiography Diagnostic Testing: Radiology Impression Abdomen/Pelvis CT 04/26/21 19:11 Physical Exam Const Constitutional Narrative: NAD. afebrile. nontoxic. Resp normal respiratory effort, no retractions, no use of accessory muscles and clear to auscultation bilaterally Cardio regular rate, regular rhythm, S1 normal heart sound and S2 normal heart sound GI normal to inspection, nondistended, normoactive bowel sounds, soft to palpation, non-tender and non-distended Extremity normal to inspection Assessment & Plan Assessment/Plan (1) Alcoholic hepatitis: QUALIFIERS: Ascites presence: with ascites Qualified Code(s): K70.11 - Alcoholic hepatitis with ascites (2) Alcohol dependence: QUALIFIERS: Substance use status: uncomplicated Qualified Code(s): F10.20 - Alcohol dependence, uncomplicated (3) Abdominal pain: QUALIFIERS: Abdominal location: generalized Qualified Code(s): R10.84 - Generalized abdominal pain (4) Hypokalemia: PLAN: 1. Acute alcohol withdrawal Phenobarbital as well as other adjunctive agents for somatic complaints ass ociated with his withdrawal. Patient has been in touch with 180 but no definitive plan has been established as of yet. 2. Acute alcohol hepatitis Improved Repeat CT shows steatosis Patient's total bilirubin is at 1.6. Patient is status post cholecystectomy. AST and ALT are down from last month and alk phos is still elevated. I told the patient that the may very well have underlying cirrhosis but that will need further biopsy and recommended that he again try to contact Dr. Dewitt when he is discharged. I did discuss with him what cirrhosis entails regards to scar tissue and treatment is discontinuing the offending alcohol and definitive treatment would be a liver transplant which she would not be a candidate at this time. 3. Abdominal pain likely due to #1. No evidence of ascites, therefore SBP ruled out. 4. Hypokalemia Given to him in emergency room Follow-up 6. VTE prophylaxis: Early ambulation. 7. COVID-19 vaccination status: Patient is not contracted COVID-19 that he is aware of nor is he been vaccinated. I did encourage that he do get vaccinated. Charges/Coding Visit Charges Inpatient E&M: 43857 Subs Hosp L2
--- NOTE | 2021-04-27 14:38 | ADDICTION ---
This fiction and nonfiction writer prose met with PT to conduct ASAM, MSE, AUDIT assessments and to plan for d/c. PT A+Ox4 and participated actively. All assessments completed and placed in PT's chart. PT plans to f/u with [facility] for IOP and follow-up counseling services. PT did not indicate a need for transportation post d/c from [facility].
--- NOTE | 2021-04-27 15:30 | CASEMGMT ---
LIBRADO Notes SW Referral Source: Addiction Therapist LIBRADO Referral Reason: No insurance SW was advised patient is self pay. LIBRADO met with patient and provided him with self pay packet and encouraged him to complete the Medicaid application. Patient denied any other issues or concerns. SW remains available. LIBRADO updated Addiction Therapist and RN CM Plan: Provided patient with resources including medicaid application Elzbieta GILLETTE
[2021-04-27] MEDS: traZODone 100 MG Tablet PO (20:17)
[2021-04-28] MEDS: Phenobarbital 32.4 MG Tablet PO ×5 (04:07→20:21)
[2021-04-28] MEDS: Ketorolac 15 MG/ML Vial IM (04:08)
[2021-04-28 04:23] VITALS: BP 97/68; PULSE 113; RESP 18; TEMP 36.6; O2SAT 94
[2021-04-28 05:52] LABS: ALB/GLOB Ratio 0.6 RATIO (0.9-2.4); AST(SGOT) 115 U/L (15-37); Alanine Aminotransfer ALT/SGPT 45 U/L (16-61); Albumin, Serum 2.2 g/dL (3.2-5.0); Alkaline Phosphatase 206 U/L (45-117); Anion Gap 6 (5-15); BUN 10 mg/dL (7-18); BUN/Creat Ratio 14.9 RATIO (10-20); Calcium,Total 7.8 mg/dL (8.5-10.1); Chloride 98 mmol/L (98-107); Creatinine, Serum 0.67 mg/dL (0.70-1.30); EST Glomerular Filtration Rate 138 mL/min (>60); Est Glom Filt Rate - Afr Amer 167 mL/min (>60); Estimated Creatinine Clearance 149.87 ml/min; Globulin 3.9 g/dL (2.2-4.2); Glucose 126 mg/dL (74-106); Potassium 3.5 mmol/L (3.5-5.1); Protein, Total 6.1 g/dL (6.4-8.2); Sodium Level 133 mmol/L (136-145)
[2021-04-28] MEDS: Folic Acid 1 MG Tablet PO (07:57)
[2021-04-28] MEDS: Thiamine Hydrochloride 100 MG Tablet PO (07:57)
[2021-04-28 08:03] VITALS: BP 97/67; PULSE 105; RESP 18; TEMP 36.4; O2SAT 98
--- NOTE | 2021-04-28 09:25 | PN.HOSP_ITS ---
Subjective Subjective Feels better but still having some abdominal pain. Objective Data Objective Data Vital Signs: Vital Signs Temp Pulse Resp BP Pulse Ox 36.4 C L 105 H 18 97/67 98 04/28/21 08:03 04/28/21 08:03 04/28/21 08:03 04/28/21 08:03 04/28/21 08:03 Oxygen Delivery Method Room Air Weight: 73.028 kg Body Mass Index (BMI) 21.8 Intake & Output: Intake and Output for Last 24 Hours 04/26/21 04/27/21 04/28/21 23:59 23:59 23:59 Intake Total 1000 / 1200 950 / 1310 360 / 360 Output Total 200 / 200 Balance 1000 / 1200 750 / 1110 360 / 360 Lab / Micro Data Result Diagrams: 04/26/21 16:53 04/28/21 04:50 Labs: Laboratory Results - last 24 hr 04/28/21 04:50: Sodium 133 L, Potassium 3.5, Chloride 98, Carbon Dioxide 29.0, Anion Gap 6, BUN 10, Creatinine 0.67 L, Estim Creat Clear Calc 149.87, Est GFR (MDRD) Af Amer 167, Est GFR (MDRD) Non-Af 138, BUN/Creatinine Ratio 14.9, Gluco se 126 H, Calcium 7.8 L, Total Bilirubin 1.10 H, AST 115 H, ALT 45, Alkaline Phosphatase 206 H, Total Protein 6.1 L, Albumin 2.2 L, Globulin 3.9, Albumin/Globulin Ratio 0.6 L Physical Exam Const alert and no apparent distress HEENT Head and Scalp: normocephalic Cardio regular rate, regular rhythm, S1 normal heart sound and S2 normal heart sound GI normal to inspection, nondistended, normoactive bowel sounds, soft to palpation, non-tender and non-distended Extremity normal to inspection Assessment & Plan Assessment/Plan (1) Alcoholic hepatitis: QUALIFIERS: Ascites presence: with ascites Qualified Code(s): K70.11 - Alcoholic hepatitis with ascites (2) Alcohol dependence: QUALIFIERS: Substance use status: uncomplicated Qualified Code(s): F10.20 - Alcohol dependence, uncomplicated (3) Abdominal pain: QUALIFIERS: Abdominal location: generalized Qualified Code(s): R10.84 - Generalized abdominal pain (4) Hypokalemia: PLAN: 1. Acute alcohol withdrawal Phenobarbital as well as other adjunctive agents for somatic complaints associated with his withdrawal. Patient has been in touch with 180 but no definitive plan has been established as of yet. 2. Acute alcohol hepatitis Improved Repeat CT shows steatosis Bilirubin down to 1.1 patient is status post cholecystectomy. AST and ALT are down from last month and alk phos is still elevated. I told the patient that the may very well have underlying cirrhosis but that will need further biopsy and recommended that he again try to contact Dr. Dewitt when he is discharged. 3. Abdominal pain likely due to #1. No evidence of ascites, therefore SBP ruled out. 4. Hypokalemia Given to him in emergency room Follow-up 6. VTE prophylaxis: Early ambulation. 7. COVID-19 vaccination status: Patient is not contracted COVID-19 that he is aware of nor is he been vaccinated. I did encourage that he do get vaccinated. 8. Disposition: Anticipate at least another day or 2 in the hospital. Charges/Coding Visit Charges Inpatient E&M: 54410 Subs Hosp L2
[2021-04-28] MEDS: Ibuprofen 400 MG Tablet PO (12:30)
[2021-04-28] MEDS: hydrOXYzine PAM 25 MG Capsule 50 MG PO (12:30)
[2021-04-28] MEDS: Gabapentin 300 MG Capsule PO (12:31)
[2021-04-28 14:29] VITALS: BP 107/81; PULSE 98; RESP 18; TEMP 36.8; O2SAT 98; O2SAT 99
[2021-04-28] MEDS: Ketorolac 10 MG Tablet PO ×2 (16:03→22:36)
[2021-04-28 22:23] VITALS: BP 107/71; PULSE 98; RESP 16; TEMP 36.2; O2SAT 96
[2021-04-28] MEDS: traZODone 100 MG Tablet PO (22:35)
[2021-04-29] MEDS: Phenobarbital 32.4 MG Tablet PO ×5 (00:09→21:52)
[2021-04-29 04:12] VITALS: BP 85/59; PULSE 99; RESP 16; TEMP 36.7; O2SAT 94
[2021-04-29 06:01] LABS: ALB/GLOB Ratio 0.5 RATIO (0.9-2.4); AST(SGOT) 127 U/L (15-37); Alanine Aminotransfer ALT/SGPT 43 U/L (16-61); Albumin, Serum 2.2 g/dL (3.2-5.0); Alkaline Phosphatase 195 U/L (45-117); Anion Gap 4 (5-15); BUN 8 mg/dL (7-18); Calcium,Total 8.2 mg/dL (8.5-10.1); Chloride 101 mmol/L (98-107); Creatinine, Serum 0.53 mg/dL (0.70-1.30); EST Glomerular Filtration Rate 181 mL/min (>60); Est Glom Filt Rate - Afr Amer 219 mL/min (>60); Estimated Creatinine Clearance 189.46 ml/min; Globulin 4.1 g/dL (2.2-4.2); Glucose 92 mg/dL (74-106); Potassium 3.9 mmol/L (3.5-5.1); Protein, Total 6.3 g/dL (6.4-8.2); Sodium Level 134 mmol/L (136-145)
--- NOTE | 2021-04-29 08:03 | DS.PCM_ITS ---
Providers Date of Admission: 04/26/21 Primary Care Physician: Dr. Luis Riley MD Reason For Visit: ALCOHOL WD Diagnosis Discharge Diagnosis (1) Alcoholic hepatitis: Status: Acute Code(s): K70.10 - Alcoholic hepatitis without ascites Qualifiers: Ascites presence: with ascites Qualified Code(s): K70.11 - Alcoholic hepatitis with ascites (2) Alcohol dependence: Status: Acute Code(s): F10.20 - Alcohol dependence, uncomplicated Qualifiers: Substance use status: uncomplicated Qualified Code(s): F10.20 - Alcohol dependence, uncomplicated (3) Abdominal pain: Status: Acute Code(s): R10.9 - Unspecified abdominal pain Qualifiers: Abdominal location: generalized Qualified Code(s): R10.84 - Generalized abdominal pain (4) Hypokalemia: Status: Acute Code(s): E87.6 - Hypokalemia Medications at Discharge Home Medications buprenorphine-naloxone 1 film PO DAILY 03/18/15 folic acid 1 mg PO DAILY@0800 #60 tab 04/29/21 thiamine HCl (vitamin B1) [Vitamin B-1] 100 mg PO DAILYCM #60 tab 04/29/21 Hospital Course Summary of Care Provided Minutes Spent on Discharge: 35 Hospital Course: Patient is a 41-year-old gentleman with history of chronic alcohol dependence presented with acute alcohol withdrawal 1.Acute alcohol withdrawal ?Admitted to regular nursing floor managed with phenobarb taper with consultation placed to 180 2. Abdominal distention ?CT of the abdomen obtained did demonstrate fatty liver 3. Acute alcoholic hepatitis ?Patient to follow-up with GI as outpatient 4. Hypokalemia corrected per protocol Physical Exam Narrative GENERAL: cooperative HEENT: Atraumatic; EYES; Anicteric, Normal Conjunctiva NECK; supple, normal thyroid, RESPIRATORY: Diminished to auscultation CARDIOVASCULAR: Regular S1 S2, GI: soft, normoactive bowel sounds, Slight distention of abdomen : No Renal angle tenderness; EXTREMITIES: No edema, no clubbing, MUSCULOSKELETAL: no muscle wasting NEURO: Awake; no lateralizing signs. SKIN: No Rash PSYCH; Flat affect Weight / BMI Weight Weight: 73.028 kg Body Mass Index (BMI) 21.8 ABG / Lab / Microbiology Data Result Diagrams: 04/26/21 16:53 04/29/21 05:12 Laboratory: Laboratory Results - last 24 hr 04/29/21 05:12: Sodium 134 L, Potassium 3.9, Chloride 101, Carbon Dioxide 29.0, Anion Gap 4 L, BUN 8, Creatinine 0.53 L, Estim Creat Clear Calc 189.46, Est GFR (MDRD) Af Amer 219, Est GFR (MDRD) Non-Af 181, BUN/Creatinine Ratio 15.0, Glucose 92, Calcium 8.2 L, Total Bilirubin 1.00, AST 127 H, ALT 43, Alkaline Phosphatase 195 H, Total Protein 6.3 L, Albumin 2.2 L, Globulin 4.1, [place] min/Globulin Ratio 0.5 L D/C Instructions Discharge Diet: No restrictions Discharge Activity: Return to Normal Activity Call your doctor if you observe: Fever of 101 or Higher, Shortness of breath, Fainting spells and Chest pain Meaningful Use Info Meaningful Use Diagnoses (Choose all that apply): None applicable Discharge Plan Admission Admit Date/Time: 04/26/21 19:08 Attending Provider: Tej Machuca Primary Care Provider: Luis Riley Discharge Orders/Prescriptions Prescriptions: New thiamine HCl (vitamin B1) [Vitamin B-1] 100 mg Tablet 100 mg PO DAILYCM Qty: 60 RF: 0 folic acid 1 mg Tablet 1 mg PO DAILY@0800 Qty: 60 RF: 0 Continued buprenorphine-naloxone 1 EACH film 1 film PO DAILY RF: 0 Referrals / Follow Up: Luis Riley MD [Primary Care Provider] - Within 2 Weeks Disposition Disposition (needs filled in before D/C Order can be placed): Home, Self Care Charges/Coding Visit Charges Inpatient E&M: 41589 Disch Hosp
[2021-04-29 08:33] VITALS: BP 99/69; PULSE 93; RESP 14; TEMP 37.1; O2SAT 97
[2021-04-29] MEDS: Thiamine Hydrochloride 100 MG Tablet PO (08:39)
[2021-04-29] MEDS: Folic Acid 1 MG Tablet PO (08:39)
[2021-04-29] MEDS: hydrOXYzine PAM 25 MG Capsule 50 MG PO ×2 (08:43→20:36)
[2021-04-29] MEDS: Ketorolac 10 MG Tablet PO ×3 (08:43→21:52)
--- NOTE | 2021-04-29 09:19 | PCM.PN.HOSP ---
Subjective Subjective Patient is a 41-year-old gentleman with history of chronic alcohol dependence presented with acute alcohol withdrawal Objective Data Objective Data Vital Signs: Vital Signs Temp Pulse Resp BP Pulse Ox 98.7 F 93 14 99/69 97 04/29/21 08:33 04/29/21 08:33 04/29/21 08:33 04/29/21 08:33 04/29/21 08:33 Oxygen Delivery Method Room Air Weight: 73.028 kg Body Mass Index (BMI) 21.8 Intake & Output: Intake and Output for Last 24 Hours 04/27/21 04/28/21 04/29/21 23:59 23:59 23:59 Intake Total 950 / 1310 2059 Output Total 200 / 200 Balance 750 / 1110 2059 Lab / Micro Data Result Diagrams: 04/26/21 16:53 04/29/21 05:12 Labs: Laboratory Results - last 24 hr 04/29/21 05:12: Sodium 134 L, Potassium 3.9, Chloride 101, Carbon Dioxide 29.0, Anion Gap 4 L, BUN 8, Creatinine 0.53 L, Estim Creat Clear Calc 189.46, Est GFR (MDRD) Af Amer 219, Est GFR (MDRD) Non-Af 181, BUN/Creatinine Ratio 15.0, Glucose 92, Calcium 8.2 L, Total Bilirubin 1.00, AST 127 H, ALT 43, Alkaline Phosphatase 195 H, Total Protein 6.3 L, Albumin 2.2 L, Globulin 4.1, Albumin/Globulin Ratio 0.5 L Physical Exam Narrative GENERAL: cooperative HEENT: Atraumatic; EYES; Anicteric, Normal Conjunctiva NECK; supple, normal thyroid, RESPIRATORY: Diminished to auscultation CARDIOVASCULAR: Regular S1 S2, GI: soft, normoactive bowel sounds, Slight distention of abdomen : No Renal angle tenderness; EXTREMITIES: No edema, no clubbing, MUSCULOSKELETAL: no muscle wasting NEURO: Awake; no lateralizing signs. SKIN: No Rash PSYCH; Flat affect Assessment & Plan Assessment/Plan (1) Alcoholic hepatitis: QUALIFIERS: Ascites presence: with ascites Qualified Code(s): K70.11 - Alcoholic hepatitis with ascites (2) Alcohol dependence: QUALIFIERS: Substance use status: uncomplicated Qualified Code(s): F10.20 - Alcohol dependence, uncomplicated (3) Abdominal pain: QUALIFIERS: Abdominal location: generalized Qualified Code(s): R10.84 - Generalized abdominal pain (4) Hypokalemia: PLAN: Patient is a 41-year-old gentleman with history of chronic alcohol dependence presented with acute alcohol withdrawal 1.Acute alcohol withdrawal ?Admitted to regular nursing floor managed with phenobarb taper with consultation placed to 180 2. Abdominal distention ?CT of the abdomen obtained did demonstrate fatty liver 3. Acute alcoholic hepatitis ?Patient to follow-up with GI as outpatient 4. Hypokalemia -corrected per protocol . Charges/Coding Visit Charges Inpatient E&M: 17914 Subs Hosp L2
[2021-04-29 16:00] VITALS: BP 97/73; PULSE 96; RESP 16; TEMP 37.2; O2SAT 95
[2021-04-29 20:38] VITALS: BP 103/70; PULSE 94; RESP 16; TEMP 37.2; O2SAT 94
[2021-04-29] MEDS: traZODone 100 MG Tablet PO (21:52)
[2021-04-30] MEDS: Phenobarbital 32.4 MG Tablet PO (03:47)
[2021-04-30 03:51] VITALS: BP 103/76; PULSE 80; RESP 16; TEMP 36.7; O2SAT 96
[2021-04-30 07:43] VITALS: BP 94/74; PULSE 95; RESP 14; TEMP 37; O2SAT 95
[2021-04-30] MEDS: Folic Acid 1 MG Tablet PO (07:48)
[2021-04-30] MEDS: Thiamine Hydrochloride 100 MG Tablet PO (07:48)
[2021-04-30] MEDS: Ketorolac 10 MG Tablet PO (07:48)
--- OUTSIDE RECORDS SUMMARY | 2024-10-18 21:27 | XMS RPT_ITS | CCD ---
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 [place] [address] Knee 4 or More Views MR#: [id number] Acct: [id number] Name: TAPAN DAILEY Rep #: [id number] : 1980 M 44 From: Reshma Wilkinson DO PCP: Dr. Luis Carnes MD Status: REG ER Study: Knee 4 or More Views Date of Exam: 06/11/24 Exam# [id number] Ordering Dr: Kain De Jesus MD PROCEDURE: [...] EFFUSION ACUTE FRACTURE OR DISLOCATION. [facility] CC: Dr. Kain De Jesus MD; Dr. Luis Carnes MD Inspector Dials: Signed Normal [facility] 12 Lead EKGon 04-17-2024 12 Lead EKG [facility] Cardiovascular Services [address] [place] [address] 12 Lead EKG 04/17/24 1950 MR#: [id number] Acct: [id number] Name: TAPAN DAILEY Rep #: [id number] : 1980 43 From: Cj Chi MD [...] rhythm Normal ECG Confirmed by Cj Chi ([id number]), mapping editor CHAGO REYEZ ([id number]) on 04/18/2024 10:30:33 AM Referred By: Rajinder Mensah Confirmed By: Cj Chi 04/18/24 1030 Date Cj Chi MD CC: Dr. Rajinder Mensah, DO; Dr. Luis Carnes MD Signed Normal [facility] Absolute neutrophil countOrd ered By: Rajinder Mensah on 04-17-2024 Neutrophils (Bld) [#/Vol] 6.5 10*3/uL 2.0-7.7 [facility] BNP (brain natriuretic pepti de measurement)Ordered By: Rajinder Mensah on 04-17-2024 Natriuretic peptide B (Bld) [Mass/Vol] 24.4 pg/mL 0-100 [facility] BNP,B-Type NATRIURETIC PEPTI Tam 04-17-2024 Natriuretic peptide B (Bld) [Mass/Vol] 24.4 pg/mL Normal 0-100 [facility] Comment on above: Performed By: #### L 100.0100, L501.4020, L503.6620, L500.2500 #### [facility] Laboratory [address] [place], [address] Basic Metabolic Profile (BMP )on 04-17-2024 BUN/CRE 7.9 RATIO Low 10-20 [facility] Comment on above: Order Comment: 'TROP ' Serial specimen #1, #2 or #3: 1 Performed By: #### L 100.0100, L501.4020, L503.6620, L500.2500 #### [facility] Laboratory [address] [place], [address] CA,Total 8.4 mg/dL Low 8.5-10.1 [facility] Comment on above: Order Comment: 'TROP ' Serial specimen #1, #2 or #3: 1 Performed By: #### L 100.0100, L501.4020, L503.6620, L500.2500 #### [facility] Laboratory [address] [place], [address] Chloride [Moles/Vol] 109 mmol/L High 98-107 [facility] Comment on above: Order Comment: 'TROP ' Serial specimen #1, #2 or #3: 1 Performed By: #### L 100.0100, L501.4020, L503.6620, L500.2500 #### [facility] Laboratory [address] [place], [address] CO2 [Moles/Vol] 25.0 mmol/L Normal 21.0-32.0 [facility] Comment on above: Order Comment: 'TROP ' Serial specimen #1, #2 or #3: 1 Performed By: #### L 100.0100, L501.4020, L503.6620, L500.2500 #### [facility] Laboratory [address] [place], [address] Creatinine [Mass/Vol] 0.88 mg/dL Normal 0.70-1.30 [facility] Comment on above: Order Comment: 'TROP ' Serial specimen #1, #2 or #3: 1 Result Comment: The validity of the calculated GFR GFRAA in patients over 70 years has not been determined. Clinical correlation is essential. Performed By: #### L 100.0100, L501.4020, L503.6620, L500.2500 #### [facility] Laboratory [address] [place], [address] ECRCL 118.82 ml/min Normal [facility] Comment on above: Order Comment: 'TROP ' Serial specimen #1, #2 or #3: 1 Performed By: #### L 100.0100, L501.4020, L503.6620, L500.2500 #### [facility] Laboratory [address] [place], [address] EST GFR - AA 120 mL/min Normal >60 [facility] Comment on above: Order Comment: 'TROP ' Serial specimen #1, #2 or #3: 1 Result Comment: Afri can Serbian GFR Calc Performed By: #### L 100.0100, L501.4020, L503.6620, L500.2500 #### [facility] Laboratory [address] [place], [address] GAP 7 Normal 5-15 [facility] Comment on above: Order Comment: 'TROP ' Serial specimen #1, #2 or #3: 1 Performed By: #### L 100.0100, L501.4020, L503.6620, L500.2500 #### [facility] Laboratory [address] [place], [address] GFR/1.73 sq M.predicted among non-blacks MDRD (S/P/Bld) [Vol rate/Area] 100 mL/min/{1.73_m2} Normal >60 [facility] Comment on above: Order Comment: 'TROP ' Serial specimen #1, #2 or #3: 1 Result Comment: Non- GFR Calc Performed By: #### L 100.0100, L501.4020, L503.6620, L500.2500 #### [facility] Laboratory [address] [place], [address] Glucose [Mass/Vol] 106 mg/dL Normal 74-106 [facility] Comment on above: Order Comment: 'TROP ' Serial specimen #1, #2 or #3: 1 Result Comment: Fast ing Glucose result from 100 to 125 mg/dL suggests IMPAIRED HOMEOSTASIS per A.D.A. criteria. Performed By: #### L 100.0100, L501.4020, L503.6620, L500.2500 #### [facility] Laboratory [address] [place], [address] Potassium [Moles/Vol] 3.5 mmol/L Normal 3.5-5.1 [facility] Comment on above: Order Comment: 'TROP ' Serial specimen #1, #2 or #3: 1 Performed By: #### L 100.0100, L501.4020, L503.6620, L500.2500 #### [facility] Laboratory [address] [place], [address] Sodium [Moles/Vol] 141 mmol/L Normal 136-145 [facility] Comment on above: Order Comment: 'TROP ' Serial specimen #1, #2 or #3: 1 Performed By: #### L 100.0100, L501.4020, L503.6620, L500.2500 #### [facility] Laboratory [address] [place], [address] Urea nitrogen [Mass/Vol] 7 mg/dL Normal 7-18 [facility] Comment on above: Order Comment: 'TROP ' Serial specimen #1, #2 or #3: 1 Performed By: #### L 100.0100, L501.4020, L503.6620, L500.2500 #### [facility] Laboratory [address] [place], [address] Basophil percentageOrdered B y: Rajinder Mensah on 04-17-2024 Basophils/100 WBC (Bld) 0.7 % 0-1 [facility] Blood urea nitrogen (BUN)/cr eatinine ratioOrdered By: Rajinder Mensah on 04-17-2024 Urea nitrogen/Creatinine [Mass ratio] 7.9 mg/mg Low 10-20 [facility] CBC W/Diff, Automatedon - Absolute Lymph 3.86 X10 3/uL Normal 0.83-4.51 [facility] Comment on above: Performed By: #### L 100.0100, L501.4020, L503.6620, L500.2500 #### [facility] Laboratory [address] [place], [address] Absolute Neut 6.5 X10 3/uL Normal 2.0-7.7 [facility] Comment on above: Performed By: #### L 100.0100, L501.4020, L503.6620, L500.2500 #### [facility] Laboratory [address] [place], [address] Basophils/100 WBC (Bld) 0.7 % Normal 0-1 [facility] Comment on above: Performed By: #### L 100.0100, L501.4020, L503.6620, L500.2500 #### [facility] Laboratory [address] [place], [address] Eosinophils/100 WBC (Bld) 0.7 % Normal 0-5 [facility] Comment on above: Performed By: #### L 100.0100, L501.4020, L503.6620, L500.2500 #### [facility] Laboratory [address] [place], [address] Erythrocyte distribution width (RBC) [Ratio] 12.7 % Normal 11.6-14.6 [facility] Comment on above: Performed By: #### L 100.0100, L501.4020, L503.6620, L500.2500 #### [facility] Laboratory [address] [place], [address] Hematocrit (Bld) [Volume fraction] 44.7 % Normal 40-54 [facility] Comment on above: Performed By: #### L 100.0100, L501.4020, L503.6620, L500.2500 #### [facility] Laboratory [address] [place], [address] Hemoglobin (Bld) [Mass/Vol] 15.3 g/dL Normal 13.0-16.5 [facility] Comment on above: Performed By: #### L 100.0100, L501.4020, L503.6620, L500.2500 #### [facility] Laboratory [address] [place], [address] IG% 0.600 Normal 0.0-0.9 [facility] Comment on above: Result Comment: IG% - Immature Granulocytes (promyelocytes, myelocytes and metamyelocytes) > 1% indicates that a LEFT SHIFT is Present. Performed By: #### L 100.0100, L501.4020, L503.6620, L500.2500 #### [facility] Laboratory [address] [place], [address] Lymphocytes/100 WBC (Bld) 33.9 % Normal 19-41 [facility] Comment on above: Performed By: #### L 100.0100, L501.4020, L503.6620, L500.2500 #### [facility] Laboratory [address] [place], [address] MCH (RBC) [Entitic mass] 34.0 pg High 27.0-32.0 [facility] Comment on above: Performed By: #### L 100.0100, L501.4020, L503.6620, L500.2500 #### [facility] Laboratory [address] [place], [address] MCHC (RBC) [Mass/Vol] 34.2 g/dL Normal 32-36 [facility] Comment on above: Performed By: #### L 100.0100, L501.4020, L503.6620, L500.2500 #### [facility] Laboratory [address] [place], [address] MCV (RBC) [Entitic vol] 99.3 fL High 80-94 [facility] Comment on above: Performed By: #### L 100.0100, L501.4020, L503.6620, L500.2500 #### [facility] Laboratory [address] [place], [address] Monocytes/100 WBC (Bld) 6.8 % Normal 0-10 [facility] Comment on above: Performed By: #### L 100.0100, L501.4020, L503.6620, L500.2500 #### [facility] Laboratory [address] [place], [address] Neutrophils/100 WBC (Bld) 57.3 % Normal 47-70 [facility] Comment on above: Performed By: #### L 100.0100, L501.4020, L503.6620, L500.2500 #### [facility] Laboratory [address] [place], [address] Nucleated RBC (Bld) [#/Vol] 0 10*3/uL Normal 0-5 [facility] Comment on above: Performed By: #### L 100.0100, L501.4020, L503.6620, L500.2500 #### [facility] Laboratory [address] [place], [address] Platelet mean volume (Bld) [Entitic vol] 10.4 fL Normal 6.2-12.0 [facility] Comment on above: Performed By: #### L 100.0100, L501.4020, L503.6620, L500.2500 #### [facility] Laboratory [address] [place], [address] Platelets (Bld) [#/Vol] 234 10*3/uL Normal 150-450 [facility] Comment on above: Performed By: #### L 100.0100, L501.4020, L503.6620, L500.2500 #### [facility] Laboratory [address] [place], [address] RBC (Bld) [#/Vol] 4.50 10*6/uL Low 4.6-6.2 [facility] Comment on above: Performed By: #### L 100.0100, L501.4020, L503.6620, L500.2500 #### [facility] Laboratory [address] [place], [address] RDW SD 46.8 fl High 35.1-43.9 [facility] Comment on above: Performed By: #### L 100.0100, L501.4020, L503.6620, L500.2500 #### [facility] Laboratory [address] [place], [address] WBC (Bld) [#/Vol] 11.4 10*3/uL High 4.4-11.0 [facility] Comment on above: Performed By: #### L 100.0100, L501.4020, L503.6620, L500.2500 #### [facility] Laboratory [address] [place], [address] Carbon dioxide measurementOr dered By: Rajinder Mensah on 04-17-2024 CO2 [Moles/Vol] 25.0 mmol/L 21.0-32.0 [facility] Chest PA and Lateralon 04-17 Chest PA and Lateral [facility] Imaging Services [address] [facility] [address] Chest PA and Lateral MR#: [id number] Acct: [id number] Name: TAPAN DAILEY Rep #: [id number] : 1980 M 43 From: Ivan Mares PCP: Dr. Luis Carnes MD Status: [facility] ER Study: Chest PA and Lateral Date of Exam: 04/17/24 Exam# [id number] Ordering Dr: Rajinder Mensah DO PROCEDURE: Chest radiographs REASON FOR EXAM: Chest pain TECHNIQUE: Two views of the chest COMPARISON: 04/12/2024 FINDINGS: Cardiomediastinal silhouette is within normal limits. Lungs are clear. No sizable pneumothorax. RAD/Chest PA and Lateral IMPRESSION: No acute airspace abnormality. Reading Location: [facility] CC: Dr. Rajinder Mensah DO; Dr. Luis Carnes MD Inspector Dials: Signed Normal [facility] Chloride measurementOrdered By: Rajinder Mensah on 04-17-2024 Chloride [Moles/Vol] 109 mmol/L High 98-107 [facility] Emergency Department Summary on 04-17-2024 Emergency Department Summary [facility] Medical Records Department [address] [place] [address] Emergency Department Summary 04/17/24 MR#: [id number] Acct: [id number] Name: TAPAN DAILEY Rep #: [id number] : 1980 43 From: Rajinder Mensah DO PCP: Dr. Luis Carnes MD Status:DEP ER Location: ED HPI History of Present [...] 103 Pulse Ox 99 Oxygen Delivery Method [facility] Narrative Medical decision making narrative: HISTORY OF [...] History obtained from others: none Consults: none [facility] Narrative: Patient was initially hemodynamically stable, afebrile [...] BY MYSELF. (more content not included)... Normal [facility] Eosinophil percentageOrdered By: Rajinder Mensah on 04-17-2024 Eosinophils/100 WBC (Bld) 0.7 % 0-5 [facility] Erythrocyte distribution wid th (RBC) [Ratio]Ordered By: Rajinder Mensah on 04-17-2024 Erythrocyte distribution width (RBC) [Entitic vol] 46.8 fL High 35.1-43.9 [facility] Erythrocyte distribution wid th ratioOrdered By: Rajinder Mensah on 04-17-2024 Erythrocyte distribution width (RBC) [Ratio] 12.7 % 11.6-14.6 [facility] Estimated glomerular filtrat ion rate (GFR) AmericanOrdered By: Rajinder Mensah on 04-17-2024 Estimated GFR (MDRD) Amer 120 mL/min >60 [facility] Comment on above: GFR Calc Estimation of creatinine yuri aranceOrdered By: Rajinder Mensah on 04-17-2024 Estimated Creatinine Clearance Calc 118.82 ml/min [facility] Glomerular filtration rate ( GFR) estimationOrdered By: Rajinder Mensah on 04-17-2024 Estimated GFR (MDRD) Non-Af Amer 100 mL/min >60 [facility] Comment on above: Non- GFR Calc Glucose measurementOrdered B y: Rajinder Mensah on 04-17-2024 Glucose [Mass/Vol] 106 mg/dL 74-106 [facility] Comment on above: Fasting Glucose resu lt from 100 to 125 mg/dL suggests IMPAIRED HOMEOSTASIS per A.D.A. criteria. Hematocrit Auto (Bld) [Volum e fraction]Ordered By: Rajinder Mensah on 04-17-2024 Hematocrit (Bld) [Volume fraction] 44.7 % 40-54 [facility] Hemoglobin measurementOrdere d By: Rajinder Mensah on 04-17-2024 Hemoglobin (Bld) [Mass/Vol] 15.3 g/dL 13.0-16.5 [facility] Immature granulocytes/100 WB C Auto (Bld)Ordered By: Rajinder Mensah on 04-17-2024 Immature granulocytes/100 WBC (Bld) 0.600 % 0.0-0.9 [facility] Comment on above: IG% - Immature Granu locytes (promyelocytes, myelocytes and metamyelocytes) > 1% indicates that a LEFT SHIFT is Present. L501.4020on 04-17-2024 TROPONIN-I HS < 3 Low 3.0-78.0 [facility] Comment on above: Order Comment: 'TROP ' Serial specimen #1, #2 or #3: 1 Result Comment: Plea se Note: New Test Units and Gender Specific Reference Ranges. For more information see Policy Stat Procedure [place] High Sensitivity Troponin (TNIH) and attachments. Performed By: #### L 500.4050, L501.2300 #### [facility] [address] [place], [address] Lymphocytes Auto (Unsp spec) [#/Vol]Ordered By: Rajinder Mensah on 04-17-2024 Lymphocytes (Bld) [#/Vol] 3.86 10*3/uL 0.83-4.51 [facility] Lymphocytes/100 WBC Auto (Un sp spec)Ordered By: Rajinder Mensah on 04-17-2024 Lymphocytes/100 WBC (Bld) 33.9 % 19-41 [facility] MCV (mean corpuscular volume ) determinationOrdered By: Rajinder Mensah on 04-17-2024 MCV (RBC) [Entitic vol] 99.3 fL High 80-94 [facility] Mean corpuscular hemoglobin (MCH) determinationOrdered By: Rajinder Mensah on 04-17-2024 MCH (RBC) [Entitic mass] 34.0 pg High 27.0-32.0 [facility] Mean corpuscular hemoglobin concentration (MCHC) determinationOrdered By: Rajinder Mensah on 04-17-2024 MCHC (RBC) [Mass/Vol] 34.2 g/dL 32-36 [facility] Mean platelet volume determi nationOrdered By: Rajinder Mensah on 04-17-2024 Platelet mean volume (Bld) [Entitic vol] 10.4 fL 6.2-12.0 [facility] Monocyte percentageOrdered B y: Rajinder Mensah on 04-17-2024 Monocytes/100 WBC (Bld) 6.8 % 0-10 [facility] Neutrophil percentageOrdered By: Rajinder Mensah on 04-17-2024 Neutrophils/100 WBC (Bld) 57.3 % 47-70 [facility] Nucleated red blood cell per centageOrdered By: Rajinder Mensah on 04-17-2024 Nucleated RBC/100 WBC (Bld) [Ratio] 0 % 0-5 [facility] Platelet countOrdered By: Nakia Mensah on 04-17-2024 Platelets (Bld) [#/Vol] 234 10*3/uL 150-450 [facility] Potassium measurementOrdered By: Rajinder Mensah on 04-17-2024 Potassium [Moles/Vol] 3.5 mmol/L 3.5-5.1 [facility] RBC Auto (Bld) [#/Vol]Ordere d By: Rajinder Mensah on 04-17-2024 RBC (Bld) [#/Vol] 4.50 10*6/uL Low 4.6-6.2 [facility] Serum anion gap measurementO rdered By: Rajinder Mensah on 04-17-2024 Anion gap [Moles/Vol] 7 mmol/L 5-15 [facility] Serum or plasma calcium betty urement (mass/volume)Ordered By: Rajinder Mensah on 04-17-2024 Calcium [Mass/Vol] 8.4 mg/dL Low 8.5-10.1 [facility] Serum or plasma creatinine m easurement (mass/volume)Ordered By: Rajinder Mensah on 04-17-2024 Creatinine [Mass/Vol] 0.88 mg/dL 0.70-1.30 [facility] Comment on above: The validity of the calculated GFR & GFRAA in patients over 70 years has not been determined. Clinical correlation is essential. Serum or plasma urea nitroge n measurement (mass/volume)Ordered By: Rajinder Mensah on 04-17-2024 Urea nitrogen [Mass/Vol] 7 mg/dL 7-18 [facility] Sodium levelOrdered By: Noelle Mensah on 04-17-2024 Sodium [Moles/Vol] 141 mmol/L 136-145 [facility] Troponin IOrdered By: Rajinder Mensah on 04-17-2024 Troponin I High Sensitivity < 3 pg/mL Low 3.0-78.0 [facility] Comment on above: Please Note: New Starla t Units and Gender Specific Reference Ranges. For more information see Policy Stat Procedure [facility] High Sensitivity Troponin (TNIH) and attachments. White blood cell (WBC) count Ordered By: Rajinder Mensah on 04-17-2024 WBC (Bld) [#/Vol] 11.4 10*3/uL High 4.4-11.0 [facility] Absolute neutrophil countOrd ered By: Kain De Jesus on 04-12-2024 Neutrophils (Bld) [#/Vol] 5.6 10*3/uL 2.0-7.7 [facility] Basic Metabolic Profile (BMP )on 04-12-2024 BUN/CRE 8.3 RATIO Low 10-20 [facility] Comment on above: Performed By: #### L 500.4050, L501.2300 #### [facility] [address] [place], [address] CA,Total 9.0 mg/dL Normal 8.5-10.1 [facility] Comment on above: Performed By: #### L 500.4050, L501.2300 #### [facility] [address] [place], [address] Chloride [Moles/Vol] 106 mmol/L Normal 98-107 [facility] Comment on above: Performed By: #### L 500.4050, L501.2300 #### [facility] [address] [place], [address] CO2 [Moles/Vol] 22.0 mmol/L Normal 21.0-32.0 [facility] Comment on above: Performed By: #### L 500.4050, L501.2300 #### [facility] [address] [place], [address] Creatinine [Mass/Vol] 0.72 mg/dL Normal 0.70-1.30 [facility] Comment on above: Result Comment: The validity of the calculated GFR GFRAA in patients over 70 years has not been determined. Clinical correlation is essential. Performed By: #### L 500.4050, L501.2300 #### [facility] [address] [place], [address] ECRCL 144.29 ml/min Normal [facility] Comment on above: Performed By: #### L 500.4050, L501.2300 #### [facility] [address] [place], [address] EST GFR - AA 152 mL/min Normal >60 [facility] Comment on above: Result Comment: Afri can Serbian GFR Calc Performed By: #### L 500.4050, L501.2300 #### [facility] [address] [place], [address] GAP 9 Normal 5-15 [facility] Comment on above: Performed By: #### L 500.4050, L501.2300 #### [facility] [address] [place], [address] GFR/1.73 sq M.predicted among non-blacks MDRD (S/P/Bld) [Vol rate/Area] 125 mL/min/{1.73_m2} Normal >60 [facility] Comment on above: Result Comment: Non- GFR Calc Performed By: #### L 500.4050, L501.2300 #### [facility] [address] [place], [address] Glucose [Mass/Vol] 101 mg/dL Normal 74-106 [facility] Comment on above: Result Comment: Fast ing Glucose result from 100 to 125 mg/dL suggests IMPAIRED HOMEOSTASIS per A.D.A. criteria. Performed By: #### L 500.4050, L501.2300 #### [facility] [address] [place], [address] Potassium [Moles/Vol] 4.3 mmol/L Normal 3.5-5.1 [facility] Comment on above: Result Comment: Mode rate Hemolysis, Result may be falsely increased. Performed By: #### L 500.4050, L501.2300 #### [facility] [address] [place], [address] Sodium [Moles/Vol] 137 mmol/L Normal 136-145 [facility] Comment on above: Performed By: #### L 500.4050, L501.2300 #### [facility] [address] [place], [address] Urea nitrogen [Mass/Vol] 6 mg/dL Low 09-09 [facility] Comment on above: Performed By: #### L 500.4050, L501.2300 #### [facility] [address] [place], [address] Basophil percentageOrdered B y: Kain De Jesus on 04-12-2024 Basophils/100 WBC (Bld) 0.3 % 0-1 [facility] Blood urea nitrogen (BUN)/cr eatinine ratioOrdered By: Kain De Jesus on 04-12-2024 Urea nitrogen/Creatinine [Mass ratio] 8.3 mg/mg Low 10-20 [facility] CBC W/Diff, Automatedon 03-26 Absolute Lymph 2.19 X10 3/uL Normal 0.83-4.51 [facility] Comment on above: Performed By: #### L 500.4050, L501.2300 #### [facility] [address] [place], [address] Absolute Neut 5.6 X10 3/uL Normal 2.0-7.7 [facility] Comment on above: Performed By: #### L 500.4050, L501.2300 #### [facility] [address] [place], [address] Basophils/100 WBC (Bld) 0.3 % Normal 0-1 [facility] Comment on above: Performed By: #### L 500.4050, L501.2300 #### [facility] [address] [place], [address] Eosinophils/100 WBC (Bld) 0.7 % Normal 0-5 [facility] Comment on above: Performed By: #### L 500.4050, L501.2300 #### [facility] [address] [place], [address] Erythrocyte distribution width (RBC) [Ratio] 13.1 % Normal 11.6-14.6 [facility] Comment on above: Performed By: #### L 500.4050, L501.2300 #### [facility] [address] [place], [address] Hematocrit (Bld) [Volume fraction] 46.4 % Normal 40-54 [facility] Comment on above: Performed By: #### L 500.4050, L501.2300 #### [facility] [address] [place], [address] Hemoglobin (Bld) [Mass/Vol] 15.8 g/dL Normal 13.0-16.5 [facility] Comment on above: Performed By: #### L 500.4050, L501.2300 #### [facility] [address] [place], [address] IG% 0.400 Normal 0.0-0.9 [facility] Comment on above: Result Comment: IG% - Immature Granulocytes (promyelocytes, myelocytes and metamyelocytes) > 1% indicates that a LEFT SHIFT is Present. Performed By: #### L 500.4050, L501.2300 #### [facility] [address] [place], [address] Lymphocytes/100 WBC (Bld) 24.6 % Normal 19-41 [facility] Comment on above: Performed By: #### L 500.4050, L501.2300 #### [facility] [address] [place], [address] MCH (RBC) [Entitic mass] 33.5 pg High 27.0-32.0 [facility] Comment on above: Performed By: #### L 500.4050, L501.2300 #### [facility] [address] [place], [address] MCHC (RBC) [Mass/Vol] 34.1 g/dL Normal 32-36 [facility] Comment on above: Performed By: #### L 500.4050, L501.2300 #### [facility] [address] [place], [address] MCV (RBC) [Entitic vol] 98.3 fL High 80-94 [facility] Comment on above: Performed By: #### L 500.4050, L501.2300 #### [facility] [address] [place], [address] Monocytes/100 WBC (Bld) 11.1 % High 0-10 [facility] Comment on above: Performed By: #### L 500.4050, L501.2300 #### [facility] [address] [place], [address] Neutrophils/100 WBC (Bld) 62.9 % Normal 47-70 [facility] Comment on above: Performed By: #### L 500.4050, L501.2300 #### [facility] [address] [place], [address] Nucleated RBC (Bld) [#/Vol] 0 10*3/uL Normal 0-5 [facility] Comment on above: Performed By: #### L 500.4050, L501.2300 #### [facility] [address] [place], [address] Platelet mean volume (Bld) [Entitic vol] 10.8 fL Normal 6.2-12.0 [facility] Comment on above: Performed By: #### L 500.4050, L501.2300 #### [facility] [address] [place], [address] Platelets (Bld) [#/Vol] 185 10*3/uL Normal 150-450 [facility] Comment on above: Performed By: #### L 500.4050, L501.2300 #### [facility] [address] [place], [address] RBC (Bld) [#/Vol] 4.72 10*6/uL Normal 4.6-6.2 [facility] Comment on above: Performed By: #### L 500.4050, L501.2300 #### [facility] [address] [place], [address] RDW SD 47.4 fl High 35.1-43.9 [facility] Comment on above: Performed By: #### L 500.4050, L501.2300 #### [facility] [address] [place], [address] WBC (Bld) [#/Vol] 8.9 10*3/uL Normal 4.4-11.0 [facility] Comment on above: Performed By: #### L 500.4050, L501.2300 #### [facility] [address] [place], [address] CTA Chest W/WO Contraston CTA Chest W/WO Contrast [facility] Imaging Services [address] [place] [address] CTA Chest W/WO Contrast MR#: [id number] Acct: [id number] Name: TAPAN DAILEY Rep #: [id number] : 1980 M 43 From: Sherwin Little MD PCP: Dr. Luis Carnes MD Status: REG ER Study: CTA Chest W/WO Contrast Date of Exam: 04/12/24 Exam# [id number] Ordering Dr: Kain De Jesus MD PROCEDURE: [...] Lungs and Airways: Bibasilar areas of consolidation, [id number]-[id number]-[id number]-left, also noted in lingula. Pleura: No pleural [...] De Jesus MD; Dr. Luis Carnes MD Inspector Dials: Signed Normal [facility] Carbon dioxide measurementOr dered By: Kain De Jesus on 04-12-2024 CO2 [Moles/Vol] 22.0 mmol/L 21.0-32.0 [facility] Chest 1 View (Portable)on Chest 1 View (Portable) [facility] Imaging Services [address] [place] [id number] Chest 1 View (Portable) MR#: [id number] Acct: [id number] Name: TAPAN DAILEY Rep #: [id number] : 1980 M 43 From: Sherwin Little MD PCP: Dr. Luis Carnes MD Status: PRE ER Study: Chest 1 View (Portable) Date of Exam: 04/12/24 Exam# [id number] Ordering Dr: Kain De Jesus MD PROCEDURE: CHEST 1 VIEW (PORTABLE) REASON FOR EXAM: Chest pain TECHNIQUE: Frontal and lateral views of the chest. COMPARISON: 11/11/2021 FINDINGS: The heart size is normal. The mediastinal contour is unremarkable. Bibasilar opacities near the costophrenic angles The bones are unremarkable. RAD/Chest 1 View (Portable) IMPRESSION: Bibasilar opacities may represent atelectasis versus airspace disease. Reading Location: [facility] CC: Dr. Kain De Jesus MD; Dr. Luis Carnes MD Inspector Dials: Signed Normal [facility] Chloride measurementOrdered By: Kain De Jesus on 04-12-2024 Chloride [Moles/Vol] 106 mmol/L 98-107 [facility] D-Dimer Quantitative (DVT/PE )on 04-12-2024 D-DIMER QUANT 1.28 FEU/ug/m Invalid Interpretation Code 0.27-0.49 [facility] Comment on above: Result Comment: D-Di harshal ELEVATED (>0.49): Additional studies and clinical assessments are indicated to conclude diagnosis of: Deep Vein Thrombosis (DVT) or Pulmonary Embolism (PE) CRITICAL VALUE CALLED TO Isabella BHAGAT 04/12/24 Tiffanie Moreno. RESULTS READ BACK BY . Performed By: #### L 501.5200, L501.2300 #### [facility] [address] [place], [place], [id number] D-dimer measurement for deep venous thrombosisOrdered By: Kain De Jesus on 04-12-2024 D-Dimer Quantitative (PE/DVT) 1.28 FEU/ug/m High 0.27-0.49 [facility] Comment on above: D-Dimer ELEVATED (>0 .49): Additional studies and clinicalassessments are indicated to conclude diagnosis of:Deep Vein Thrombosis (DVT) or Pulmonary Embolism (PE)CRITICAL VALUE CALLED TO Isabella BHAGAT04/12/24 2692 Laure Moreno.RESULTS READ BACK BY . Emergency Department Summary on 04-12-2024 Emergency Department Summary [facility] Medical Records Department [address] [place] [address] Emergency Department Summary 04/12/24 MR#: [id number] Acct: [id number] Name: TAPAN DAILEY Rep #: [id number] : 1980 43 From: Kain De Jesus [...] TAD Risk Factors: Positive for Marfan's Syndrome [facility] Medical History DVT (deep venous [...] Back nontender. Moving all 4 extremities. 5-5 detective narcotics and vice strength. Equal symmetrical strong radial pulses. Calves are nontender without edema or cords. Normal range of motion both lower extremities. Normal dorsi plantarflexion. He is awake and alert. No focal karan (more content not included)... Normal [facility] Eosinophil percentageOrdered By: Kain De Jesus on 04-12-2024 Eosinophils/100 WBC (Bld) 0.7 % 0-5 [facility] Erythrocyte distribution wid th (RBC) [Ratio]Ordered By: Kain De Jesus on 04-12-2024 Erythrocyte distribution width (RBC) [Entitic vol] 47.4 fL High 35.1-43.9 [facility] Erythrocyte distribution wid th ratioOrdered By: Kain De Jesus on 04-12-2024 Erythrocyte distribution width (RBC) [Ratio] 13.1 % 11.6-14.6 [facility] Estimated glomerular filtrat ion rate (GFR) AmericanOrdered By: Kain De Jseus on 04-12-2024 Estimated GFR (MDRD) Amer 152 mL/min >60 [facility] Comment on above: GFR Calc Estimation of creatinine yuri aranceOrdered By: Kain De Jesus on 04-12-2024 Estimated Creatinine Clearance Calc 144.29 ml/min [facility] Glomerular filtration rate ( GFR) estimationOrdered By: Kain De Jesus on 04-12-2024 Estimated GFR (MDRD) Non-Af Amer 125 mL/min >60 [facility] Comment on above: Non- GFR Calc Glucose measurementOrdered B y: Kain De Jesus on 04-12-2024 Glucose [Mass/Vol] 101 mg/dL 74-106 [facility] Comment on above: Fasting Glucose resu lt from 100 to 125 mg/dL suggests IMPAIRED HOMEOSTASIS per A.D.A. criteria. Hematocrit Auto (Bld) [Volum e fraction]Ordered By: Kain De Jesus on 04-12-2024 Hematocrit (Bld) [Volume fraction] 46.4 % 40-54 [facility] Hemoglobin measurementOrdere d By: Kain De Jesus on 04-12-2024 Hemoglobin (Bld) [Mass/Vol] 15.8 g/dL 13.0-16.5 [facility] Immature granulocytes/100 WB C Auto (Bld)Ordered By: Kain De Jesus on 04-12-2024 Immature granulocytes/100 WBC (Bld) 0.400 % 0.0-0.9 [facility] Comment on above: IG% - Immature Granu locytes (promyelocytes, myelocytes and metamyelocytes) > 1% indicates that a LEFT SHIFT is Present. International normalized rat io (INR) calculationOrdered By: Kain De Jesus on 04-12-2024 INR Coag (Bld) [Relative time] 1.1 {INR} [facility] L501.4020on 04-12-2024 TROPONIN-I HS < 3 Low 3.0-78.0 [facility] Comment on above: Result Comment: Plea se Note: New Test Units and Gender Specific Reference Ranges. For more information see Policy Stat Procedure [place] High Sensitivity Troponin (TNIH) and attachments. Performed By: #### L 500.4050, L501.2300 #### [facility] [address] [place], [place], [id number] L501.5425on 04-12-2024 TROPONIN-I HS < 3 Low 3.0-78.0 [facility] Comment on above: Order Comment: 1Y Result Comment: Plea se Note: New Test Units and Gender Specific Reference Ranges. For more information see Policy Stat Procedure [place] High Sensitivity Troponin (TNIH) and attachments. Performed By: #### L 500.4050, L501.2300 #### [facility] [address] [place], [address] Lymphocytes Auto (Unsp spec) [#/Vol]Ordered By: Kain De Jesus on 04-12-2024 Lymphocytes (Bld) [#/Vol] 2.19 10*3/uL 0.83-4.51 [facility] Lymphocytes/100 WBC Auto (Un sp spec)Ordered By: Kain De Jesus on 04-12-2024 Lymphocytes/100 WBC (Bld) 24.6 % 19-41 [facility] MCV (mean corpuscular volume ) determinationOrdered By: Kain De Jesus on 04-12-2024 MCV (RBC) [Entitic vol] 98.3 fL High 80-94 [facility] Mean corpuscular hemoglobin (MCH) determinationOrdered By: Kain De Jesus on 04-12-2024 MCH (RBC) [Entitic mass] 33.5 pg High 27.0-32.0 [facility] Mean corpuscular hemoglobin concentration (MCHC) determinationOrdered By: Kain De Jesus on 04-12-2024 MCHC (RBC) [Mass/Vol] 34.1 g/dL 32-36 [facility] Mean platelet volume determi nationOrdered By: Kain De Jesus on 04-12-2024 Platelet mean volume (Bld) [Entitic vol] 10.8 fL 6.2-12.0 [facility] Monocyte percentageOrdered B y: Kain De Jesus on 04-12-2024 Monocytes/100 WBC (Bld) 11.1 % High 0-10 [facility] Neutrophil percentageOrdered By: Kain De Jesus on 04-12-2024 Neutrophils/100 WBC (Bld) 62.9 % 47-70 [facility] Nucleated red blood cell per centageOrdered By: Kain De Jesus on 04-12-2024 Nucleated RBC/100 WBC (Bld) [Ratio] 0 % 0-5 [facility] Platelet countOrdered By: Abdias De Jesus on 04-12-2024 Platelets (Bld) [#/Vol] 185 10*3/uL 150-450 [facility] Potassium measurementOrdered By: Kain De Jesus on 04-12-2024 Potassium [Moles/Vol] 4.3 mmol/L 3.5-5.1 [facility] Comment on above: Moderate Hemolysis, Result may be falsely increased. Prothrombin Time w/INRon INR Coag (PPP) [Relative time] 1.1 {INR} Normal [facility] Comment on above: Performed By: #### L 500.4050, L501.2300 #### [facility] [address] [place], [place] [address] [place], [place], [id number] PT Coag (PPP) [Time] 14.1 s Normal 11.7-14.9 [facility] Comment on above: Performed By: #### L 500.4050, L501.2300 #### [facility] [address] [place], [address] Prothrombin timeOrdered By: Kain De Jesus on 04-12-2024 PT Coag (PPP) [Time] 14.1 s 11.7-14.9 [facility] RBC Auto (Bld) [#/Vol]Ordere d By: Kain De Jesus on 04-12-2024 RBC (Bld) [#/Vol] 4.72 10*6/uL 4.6-6.2 [facility] Serum anion gap measurementO rdered By: Kain De Jesus on 04-12-2024 Anion gap [Moles/Vol] 9 mmol/L 5-15 [facility] Serum or plasma calcium betty urement (mass/volume)Ordered By: Kain De Jesus on 04-12-2024 Calcium [Mass/Vol] 9.0 mg/dL 8.5-10.1 [facility] Serum or plasma creatinine m easurement (mass/volume)Ordered By: Kain De Jesus on 04-12-2024 Creatinine [Mass/Vol] 0.72 mg/dL 0.70-1.30 [facility] Comment on above: The validity of the calculated GFR & GFRAA in patients over 70 years has not been determined. Clinical correlation is essential. Serum or plasma urea nitroge n measurement (mass/volume)Ordered By: Kain De Jesus on 04-12-2024 Urea nitrogen [Mass/Vol] 6 mg/dL Low 7-18 [facility] Sodium levelOrdered By: Kain De Jesus on 04-12-2024 Sodium [Moles/Vol] 137 mmol/L 136-145 [facility] Troponin IOrdered By: Kain augustine on 04-12-2024 Troponin I High Sensitivity < 3 pg/mL Low 3.0-78.0 [facility] Comment on above: Please Note: New Starla t Units and Gender Specific Reference Ranges. For more information see Policy Stat Procedure [place] High Sensitivity Troponin (TNIH) and attachments. White blood cell (WBC) count Ordered By: Kain De Jesus on 04-12-2024 WBC (Bld) [#/Vol] 8.9 10*3/uL 4.4-11.0 [facility] Absolute neutrophil countOrd ered By: Tej Machuca on 03-04-2024 Neutrophils (Bld) [#/Vol] 3.5 10*3/uL 2.0-7.7 [facility] Albumin to globulin ratioOrd ered By: Tej Machuca on 03-04-2024 Albumin/Globulin [Mass ratio] 0.8 {ratio} Low 0.9-2.4 [facility] Basophil percentageOrdered B y: Tej Machuca on 03-04-2024 Basophils/100 WBC (Bld) 0.5 % 0-1 [facility] Bilirubin, totalOrdered By: Tej Machuca on 03-04-2024 Bilirubin [Mass/Vol] 1.80 mg/dL High 0.20-1.00 [facility] Comment on above: For patients on eltr ombopag therapy, use of Dimension [place] TBIL is not recommended. Blood urea nitrogen (BUN)/cr eatinine ratioOrdered By: Tej Machuca on 03-04-2024 Urea nitrogen/Creatinine [Mass ratio] 10.5 mg/mg 10-20 [facility] CBC W/Diff, Automatedon 02-23 Absolute Lymph 1.94 X10 3/uL Normal 0.83-4.51 [facility] Comment on above: Performed By: #### L 500.4050, L501.2300 #### [facility] [address] [place], [address] Absolute Neut 3.5 X10 3/uL Normal 2.0-7.7 [facility] Comment on above: Performed By: #### L 500.4050, L501.2300 #### [facility] [address] [place], [address] Basophils/100 WBC (Bld) 0.5 % Normal 0-1 [facility] Comment on above: Performed By: #### L 500.4050, L501.2300 #### [facility] [address] [place], [address] Eosinophils/100 WBC (Bld) 1.5 % Normal 0-5 [facility] Comment on above: Performed By: #### L 500.4050, L501.2300 #### [facility] [facility] [address] [place], [address] Erythrocyte distribution width (RBC) [Ratio] 15.6 % High 11.6-14.6 [facility] Comment on above: Performed By: #### L 500.4050, L501.2300 #### [facility] [address] [place], [address] Hematocrit (Bld) [Volume fraction] 45.3 % Normal 40-54 [facility] Comment on above: Performed By: #### L 500.4050, L501.2300 #### [facility] [address] [place], [address] Hemoglobin (Bld) [Mass/Vol] 15.8 g/dL Normal 13.0-16.5 [facility] Comment on above: Performed By: #### L 500.4050, L501.2300 #### [facility] [address] [place], [address] IG% 0.300 Normal 0.0-0.9 [facility] Comment on above: Result Comment: IG% - Immature Granulocytes (promyelocytes, myelocytes and metamyelocytes) > 1% indicates that a LEFT SHIFT is Present. Performed By: #### L 500.4050, L501.2300 #### [facility] [address] [place], [address] Lymphocytes/100 WBC (Bld) 32.2 % Normal 19-41 [facility] Comment on above: Performed By: #### L 500.4050, L501.2300 #### [facility] [address] [place], [address] MCH (RBC) [Entitic mass] 33.7 pg High 27.0-32.0 [facility] Comment on above: Performed By: #### L 500.4050, L501.2300 #### [facility] [address] [place], [address] MCHC (RBC) [Mass/Vol] 34.9 g/dL Normal 32-36 [facility] Comment on above: Performed By: #### L 500.4050, L501.2300 #### [facility] [address] [place], [address] MCV (RBC) [Entitic vol] 96.6 fL High 80-94 [facility] Comment on above: Performed By: #### L 500.4050, L501.2300 #### [facility] [address] [place], [address] Monocytes/100 WBC (Bld) 7.1 % Normal 0-10 [facility] Comment on above: Performed By: #### L 500.4050, L501.2300 #### [facility] [address] [place], [address] Neutrophils/100 WBC (Bld) 58.4 % Normal 47-70 [facility] Comment on above: Performed By: #### L 500.4050, L501.2300 #### [facility] [address] [place], [address] Nucleated RBC (Bld) [#/Vol] 0 10*3/uL Normal 0-5 [facility] Comment on above: Performed By: #### L 500.4050, L501.2300 #### [facility] [address] [place], [address] Platelet mean volume (Bld) [Entitic vol] 10.4 fL Normal 6.2-12.0 [facility] Comment on above: Performed By: #### L 500.4050, L501.2300 #### [facility] [address] [place], [address] Platelets (Bld) [#/Vol] 120 10*3/uL Low 150-450 [facility] Comment on above: Performed By: #### L 500.4050, L501.2300 #### [facility] [address] [place], [address] RBC (Bld) [#/Vol] 4.69 10*6/uL Normal 4.6-6.2 [facility] Comment on above: Performed By: #### L 500.4050, L501.2300 #### [facility] [address] [place], [address] RDW SD 55.3 fl High 35.1-43.9 [facility] Comment on above: Performed By: #### L 500.4050, L501.2300 #### [facility] [address] [place], [address] WBC (Bld) [#/Vol] 6.0 10*3/uL Normal 4.4-11.0 [facility] Comment on above: Performed By: #### L 500.4050, L501.2300 #### [facility] [address] [place], [address] Carbon dioxide measurementOr dered By: Tej Machuca on 03-04-2024 CO2 [Moles/Vol] 29.0 mmol/L 21.0-32.0 [facility] Chloride measurementOrdered By: Tej Machuca on 03-04-2024 Chloride [Moles/Vol] 105 mmol/L 98-107 [facility] Comprehensive Metabolic Prof ilon 03-04-2024 Albumin [Mass/Vol] 2.8 g/dL Low 3.2-5.0 [facility] Comment on above: Performed By: #### L 500.4050, L501.2300 #### [facility] [address] [place], [address] Albumin/Globulin [Mass ratio] 0.8 {ratio} Low 0.9-2.4 [facility] Comment on above: Performed By: #### L 500.4050, L501.2300 #### [facility] [address] [place], [address] ALK P 98 U/L Normal 45-117 [facility] Comment on above: Performed By: #### L 500.4050, L501.2300 #### [facility] [address] [place], [address] ALT [Catalytic activity/Vol] 50 U/L Normal 16-61 [facility] Comment on above: Performed By: #### L 500.4050, L501.2300 #### [facility] [address] [place], [address] AST [Catalytic activity/Vol] 83 U/L High 15-37 [facility] Comment on above: Performed By: #### L 500.4050, L501.2300 #### [facility] [address] [place], [address] Bilirubin [Mass/Vol] 1.80 mg/dL High 0.20-1.00 [facility] Comment on above: Result Comment: For patients on eltrombopag therapy, use of Dimension Wilson TBIL is not recommended. Performed By: #### L 500.4050, L501.2300 #### [facility] [address] [place], [address] BUN/CRE 10.5 RATIO Normal 10-20 [facility] Comment on above: Performed By: #### L 500.4050, L501.2300 #### [facility] [address] [place], [address] CA,Total 8.4 mg/dL Low 8.5-10.1 [facility] Comment on above: Performed By: #### L 500.4050, L501.2300 #### [facility] [address] [place], [address] Chloride [Moles/Vol] 105 mmol/L Normal 98-107 [facility] Comment on above: Performed By: #### L 500.4050, L501.2300 #### [facility] [address] [place], [address] CO2 [Moles/Vol] 29.0 mmol/L Normal 21.0-32.0 [facility] Comment on above: Performed By: #### L 500.4050, L501.2300 #### [facility] [address] [place], [address] Creatinine [Mass/Vol] 0.86 mg/dL Normal 0.70-1.30 [facility] Comment on above: Result Comment: The validity of the calculated GFR GFRAA in patients over 70 years has not been determined. Clinical correlation is essential. Performed By: #### L 500.4050, L501.2300 #### [facility] [address] [place], [address] ECRCL 114.12 ml/min Normal [facility] Comment on above: Performed By: #### L 500.4050, L501.2300 #### [facility] [address] [place], [address] EST GFR - AA 125 mL/min Normal >60 [facility] Comment on above: Result Comment: Afri can Serbian GFR Calc Performed By: #### L 500.4050, L501.2300 #### [facility] [address] [place], [address] GAP 4 Low 5-15 [facility] Comment on above: Performed By: #### L 500.4050, L501.2300 #### [facility] [address] [place], [address] GFR/1.73 sq M.predicted among non-blacks MDRD (S/P/Bld) [Vol rate/Area] 103 mL/min/{1.73_m2} Normal >60 [facility] Comment on above: Result Comment: Non- GFR Calc Performed By: #### L 500.4050, L501.2300 #### [facility] [address] [place], [address] Globulin (S) [Mass/Vol] 3.3 g/dL Normal 2.2-4.2 [facility] Comment on above: Performed By: #### L 500.4050, L501.2300 #### [facility] [address] [place], [address] Glucose [Mass/Vol] 93 mg/dL Normal 74-106 [facility] Comment on above: Performed By: #### L 500.4050, L501.2300 #### [facility] [address] [place], [address] Potassium [Moles/Vol] 3.7 mmol/L Normal 3.5-5.1 [facility] Comment on above: Performed By: #### L 500.4050, L501.2300 #### [facility] [address] [place], [address] Sodium [Moles/Vol] 138 mmol/L Normal 136-145 [facility] Comment on above: Performed By: #### L 500.4050, L501.2300 #### [facility] [address] [place], [address] T PROT 6.1 g/dL Low 6.4-8.2 [facility] Comment on above: Performed By: #### L 500.4050, L501.2300 #### [facility] [address] [place], [address] Urea nitrogen [Mass/Vol] 9 mg/dL Normal 7-18 [facility] Comment on above: Performed By: #### L 500.4050, L501.2300 #### [facility] [address] [place], [address] Eosinophil percentageOrdered By: Tej Machuca on 03-04-2024 Eosinophils/100 WBC (Bld) 1.5 % 0-5 [facility] Erythrocyte distribution wid th (RBC) [Ratio]Ordered By: Tej Machuca on 03-04-2024 Erythrocyte distribution width (RBC) [Entitic vol] 55.3 fL High 35.1-43.9 [facility] Erythrocyte distribution wid th ratioOrdered By: Tej Machuca on 03-04-2024 Erythrocyte distribution width (RBC) [Ratio] 15.6 % High 11.6-14.6 [facility] Estimated glomerular filtrat ion rate (GFR) AmericanOrdered By: Tej Machuca on 03-04-2024 Estimated GFR (MDRD) Amer 125 mL/min >60 [facility] Comment on above: GFR Calc Estimation of creatinine yuri aranceOrdered By: Tej Machuca on 03-04-2024 Estimated Creatinine Clearance Calc 114.12 ml/min [facility] Glomerular filtration rate ( GFR) estimationOrdered By: Tej Machuca on 03-04-2024 Estimated GFR (MDRD) Non-Af Amer 103 mL/min >60 [facility] Comment on above: Non- GFR Calc Glucose measurementOrdered B y: Tej Machuca on 03-04-2024 Glucose [Mass/Vol] 93 mg/dL 74-106 [facility] Hematocrit Auto (Bld) [Volum e fraction]Ordered By: Tej Machuca on 03-04-2024 Hematocrit (Bld) [Volume fraction] 45.3 % 40-54 [facility] Hemoglobin measurementOrdere d By: Tej Mcahuca on 03-04-2024 Hemoglobin (Bld) [Mass/Vol] 15.8 g/dL 13.0-16.5 [facility] Immature granulocytes/100 WB C Auto (Bld)Ordered By: Tej Mcahuca on 03-04-2024 Immature granulocytes/100 WBC (Bld) 0.300 % 0.0-0.9 [facility] Comment on above: IG% - Immature Granu locytes (promyelocytes, myelocytes and metamyelocytes) > 1% indicates that a LEFT SHIFT is Present. Laboratory - Chemistry and C hemistry - challengeOrdered By: Tej Machuca on 03-04-2024 AST [Catalytic activity/Vol] 83 U/L High 15-37 [facility] Lymphocytes Auto (Unsp spec) [#/Vol]Ordered By: Tej Machuca on 03-04-2024 Lymphocytes (Bld) [#/Vol] 1.94 10*3/uL 0.83-4.51 [facility] Lymphocytes/100 WBC Auto (Un sp spec)Ordered By: Tej Machuca on 03-04-2024 Lymphocytes/100 WBC (Bld) 32.2 % 19-41 [facility] MCV (mean corpuscular volume ) determinationOrdered By: Tej Machuca on 03-04-2024 MCV (RBC) [Entitic vol] 96.6 fL High 80-94 [facility] Magnesiumon 03-04-2024 Magnesium [Mass/Vol] 1.6 mg/dL Normal 1.6-2.6 [facility] Comment on above: Performed By: #### L 500.4050, L501.2300 #### [facility] [address] [place], [place] [address]all [facility] [place], [address] Magnesium measurementOrdered By: Tej Machuca on 03-04-2024 Magnesium [Mass/Vol] 1.6 mg/dL 1.6-2.6 [facility] Mean corpuscular hemoglobin (MCH) determinationOrdered By: Tej Machuca on 03-04-2024 MCH (RBC) [Entitic mass] 33.7 pg High 27.0-32.0 [facility] Mean corpuscular hemoglobin concentration (MCHC) determinationOrdered By: Tej Machuca on 03-04-2024 MCHC (RBC) [Mass/Vol] 34.9 g/dL 32-36 [facility] Mean platelet volume determi nationOrdered By: Tej Machuca on 03-04-2024 Platelet mean volume (Bld) [Entitic vol] 10.4 fL 6.2-12.0 [facility] Monocyte percentageOrdered B y: Tej Machuca on 03-04-2024 Monocytes/100 WBC (Bld) 7.1 % 0-10 [facility] Neutrophil percentageOrdered By: Tej Machuca on 03-04-2024 Neutrophils/100 WBC (Bld) 58.4 % 47-70 [facility] Nucleated red blood cell per centageOrdered By: Tej Machuca on 03-04-2024 Nucleated RBC/100 WBC (Bld) [Ratio] 0 % 0-5 [facility] Phosphoruson 03-04-2024 Phosphate [Mass/Vol] 3.3 mg/dL Normal 2.5-4.9 [facility] Comment on above: Performed By: #### L 500.4050, L501.2300 #### [facility] [address] [place] [address], [id number] Phosphorus measurementOrdere d By: Tej Machuca on 03-04-2024 Phosphorus Level 3.3 mg/dL 2.5-4.9 [facility] Platelet countOrdered By: Sherwin Machuca on 03-04-2024 Platelets (Bld) [#/Vol] 120 10*3/uL Low 150-450 [facility] Potassium measurementOrdered By: Tej Machuca on 03-04-2024 Potassium [Moles/Vol] 3.7 mmol/L 3.5-5.1 [facility] RBC Auto (Bld) [#/Vol]Ordere d By: Tej Machuca on 03-04-2024 RBC (Bld) [#/Vol] 4.69 10*6/uL 4.6-6.2 [facility] Serum anion gap measurementO rdered By: Tej Machuca on 03-04-2024 Anion gap [Moles/Vol] 4 mmol/L Low 5-15 [facility] Serum globulin measurementOr dered By: Tej Machuca on 03-04-2024 Globulin (S) [Mass/Vol] 3.3 g/dL 2.2-4.2 [facility] Serum or plasma alanine umanzor otransferase (ALT) measurementOrdered By: Tej Machuca on 03-04-2024 ALT [Catalytic activity/Vol] 50 U/L 16-61 [facility] Serum or plasma albumin betty urement (mass/volume)Ordered By: Tej Machuca on 03-04-2024 Albumin [Mass/Vol] 2.8 g/dL Low 3.2-5.0 [facility] Serum or plasma alkaline tawana sphatase measurementOrdered By: Tej Machuca on 03-04-2024 ALP [Catalytic activity/Vol] 98 U/L 45-117 [facility] Serum or plasma calcium betty urement (mass/volume)Ordered By: Tej Machuca on 03-04-2024 Calcium [Mass/Vol] 8.4 mg/dL Low 8.5-10.1 [facility] Serum or plasma creatinine m easurement (mass/volume)Ordered By: Tej Machuca on 03-04-2024 Creatinine [Mass/Vol] 0.86 mg/dL 0.70-1.30 [facility] Comment on above: The validity of the calculated GFR & GFRAA in patients over 70 years has not been determined. Clinical correlation is essential. Serum or plasma urea nitroge n measurement (mass/volume)Ordered By: Tej Machuca on 03-04-2024 Urea nitrogen [Mass/Vol] 9 mg/dL 7-18 [facility] Sodium levelOrdered By: Nsihant Machuca on 03-04-2024 Sodium [Moles/Vol] 138 mmol/L 136-145 [facility] Total proteinOrdered By: Kin Machuca on 03-04-2024 Protein [Mass/Vol] 6.1 g/dL Low 6.4-8.2 [facility] White blood cell (WBC) count Ordered By: Tej Machuca on 03-04-2024 WBC (Bld) [#/Vol] 6.0 10*3/uL 4.4-11.0 [facility] CBC W/Diff, Automatedon PATH REV Reviewed Normal [facility] Comment on above: Result Comment: Poly cythemia Clinical correlation necessary. Bartolo Yadav M.D. 03/03/24 AMENDED REPORT 03/03/24 1002 PATH REV previously reported as: June Performed By: #### L 100.0500, L500.4050 #### [facility] [address] [place], [address] Comprehensive Metabolic Prof ilon 03-03-2024 Albumin [Mass/Vol] 2.9 g/dL Low 3.2-5.0 [facility] Comment on above: Performed By: #### L 500.4050, L501.2300 #### [facility] [address] [place], [address] Albumin/Globulin [Mass ratio] 0.9 {ratio} Normal 0.9-2.4 [facility] Comment on above: Performed By: #### L 500.4050, L501.2300 #### [facility] [address] [place], [address] ALK P 104 U/L Normal 45-117 [facility] Comment on above: Performed By: #### L 500.4050, L501.2300 #### [facility] [address] [place], [address] ALT [Catalytic activity/Vol] 44 U/L Normal 16-61 [facility] Comment on above: Performed By: #### L 500.4050, L501.2300 #### [facility] [address] [place], [address] AST [Catalytic activity/Vol] 64 U/L High 15-37 [facility] Comment on above: Performed By: #### L 500.4050, L501.2300 #### [facility] [address] [place], [address] Bilirubin [Mass/Vol] 2.00 mg/dL High 0.20-1.00 [facility] Comment on above: Result Comment: For patients on eltrombopag therapy, use of Dimension Wilson TBIL is not recommended. Performed By: #### L 500.4050, L501.2300 #### [facility] [address] [place], [address] BUN/CRE 6.5 RATIO Low 10-20 [facility] Comment on above: Performed By: #### L 500.4050, L501.2300 #### [facility] [address] [place], [address] CA,Total 8.4 mg/dL Low 8.5-10.1 [facility] Comment on above: Performed By: #### L 500.4050, L501.2300 #### [facility] [address] [place], [address] Chloride [Moles/Vol] 102 mmol/L Normal 98-107 [facility] Comment on above: Performed By: #### L 500.4050, L501.2300 #### [facility] [address] [place], [address] CO2 [Moles/Vol] 30.0 mmol/L Normal 21.0-32.0 [facility] Comment on above: Performed By: #### L 500.4050, L501.2300 #### [facility] [address] [place], [address] Creatinine [Mass/Vol] 0.93 mg/dL Normal 0.70-1.30 [facility] Comment on above: Result Comment: The validity of the calculated GFR GFRAA in patients over 70 years has not been determined. Clinical correlation is essential. Performed By: #### L 500.4050, L501.2300 #### [facility] [address] [place], [address] ECRCL 105.53 ml/min Normal [facility] Comment on above: Performed By: #### L 500.4050, L501.2300 #### [facility] [address] [place], [address] EST GFR - AA 114 mL/min Normal >60 [facility] Comment on above: Result Comment: Afri can Serbian GFR Calc Performed By: #### L 500.4050, L501.2300 #### [facility] [address] [place], [address] GAP 6 Normal 5-15 [facility] Comment on above: Performed By: #### L 500.4050, L501.2300 #### [facility] [address] [place], [address] GFR/1.73 sq M.predicted among non-blacks MDRD (S/P/Bld) [Vol rate/Area] 94 mL/min/{1.73_m2} Normal >60 [facility] Comment on above: Result Comment: Non- GFR Calc Performed By: #### L 500.4050, L501.2300 #### [facility] [address] [place], [address] Globulin (S) [Mass/Vol] 3.3 g/dL Normal 2.2-4.2 [facility] Comment on above: Performed By: #### L 500.4050, L501.2300 #### [facility] [address] [place], [address] Glucose [Mass/Vol] 104 mg/dL Normal 74-106 [facility] Comment on above: Result Comment: Fast ing Glucose result from 100 to 125 mg/dL suggests IMPAIRED HOMEOSTASIS per A.D.A. criteria. Performed By: #### L 500.4050, L501.2300 #### [facility] [address] [place], [address] Potassium [Moles/Vol] 3.6 mmol/L Normal 3.5-5.1 [facility] Comment on above: Performed By: #### L 500.4050, L501.2300 #### [facility] [address] [place], [address] Sodium [Moles/Vol] 138 mmol/L Normal 136-145 [facility] Comment on above: Performed By: #### L 500.4050, L501.2300 #### [facility] [address] [place], [address] T PROT 6.2 g/dL Low 6.4-8.2 [facility] Comment on above: Performed By: #### L 500.4050, L501.2300 #### [facility] [address] [place], [address] Urea nitrogen [Mass/Vol] 6 mg/dL Low 7-18 [facility] Comment on above: Performed By: #### L 500.4050, L501.2300 #### [facility] [address] [place], [address] Phosphoruson 03-03-2024 Phosphate [Mass/Vol] 3.9 mg/dL Normal 2.5-4.9 [facility] Comment on above: Performed By: #### L 500.4050, L501.2300 #### [facility] [address] [place], [address] Alcohol, Blood (Medical)-Ser on 03-02-2024 SERUM ETOH 246.0 mg/dL Normal [facility] Comment on above: Result Comment: The serum:whole blood ethanol ratio is approximately 1.14 and varies slightly with hematocrit. Medical Alcohol reference interval and critical value in non-tolerant individuals; 50 - 100 Impairment 100 Intoxication 100 - 250 Severe Poisoning 250 - 400 Deep/possible fatal coma Performed By: #### L 100.0500, L500.4050 #### [facility] [address] [place], [address] Comprehensive Metabolic Prof ilon 03-02-2024 Albumin [Mass/Vol] 3.7 g/dL Normal 3.2-5.0 [facility] Comment on above: Performed By: #### L 100.0500, L500.4050 #### [facility] [address] [place], [address] Albumin/Globulin [Mass ratio] 0.9 {ratio} Normal 0.9-2.4 [facility] Comment on above: Performed By: #### L 100.0500, L500.4050 #### [facility] [address] [place], [address] ALK P 123 U/L High 45-117 [facility] Comment on above: Performed By: #### L 100.0500, L500.4050 #### [facility] [address] [place], [address] ALT [Catalytic activity/Vol] 60 U/L Normal 16-61 [facility] Comment on above: Performed By: #### L 100.0500, L500.4050 #### [facility] [address] [place], [address] AST [Catalytic activity/Vol] 108 U/L High 15-37 [facility] Comment on above: Performed By: #### L 100.0500, L500.4050 #### [facility] [address] [place], [address] Bilirubin [Mass/Vol] 1.80 mg/dL High 0.20-1.00 [facility] Comment on above: Result Comment: For patients on eltrombopag therapy, use of Dimension Wilson TBIL is not recommended. Performed By: #### L 100.0500, L500.4050 #### [facility] [address] [place], [address] BUN/CRE 2.4 RATIO Low 10-20 [facility] Comment on above: Performed By: #### L 100.0500, L500.4050 #### [facility] [address] [place], [address] CA,Total 9.2 mg/dL Normal 8.5-10.1 [facility] Comment on above: Performed By: #### L 100.0500, L500.4050 #### [facility] [address] [place], [address] Chloride [Moles/Vol] 101 mmol/L Normal 98-107 [facility] Comment on above: Performed By: #### L 100.0500, L500.4050 #### [facility] [address] [place], [place], [address] CO2 [Moles/Vol] 28.0 mmol/L Normal 21.0-32.0 [facility] Comment on above: Performed By: #### L 100.0500, L500.4050 #### [facility] [address] [place], [address] Creatinine [Mass/Vol] 0.85 mg/dL Normal 0.70-1.30 [facility] Comment on above: Result Comment: The validity of the calculated GFR GFRAA in patients over 70 years has not been determined. Clinical correlation is essential. Performed By: #### L 100.0500, L500.4050 #### [facility] [address] [place], [address] ECRCL 122.68 ml/min Normal [facility] Comment on above: Performed By: #### L 100.0500, L500.4050 #### [facility] [address] [place], [address] EST GFR - AA 126 mL/min Normal >60 [facility] Comment on above: Result Comment: Afri can Serbian GFR Calc Performed By: #### L 100.0500, L500.4050 #### [facility] [address] [place], [address] GAP 7 Normal 5-15 [facility] Comment on above: Performed By: #### L 100.0500, L500.4050 #### [facility] [address] [place], [address] GFR/1.73 sq M.predicted among non-blacks MDRD (S/P/Bld) [Vol rate/Area] 104 mL/min/{1.73_m2} Normal >60 [facility] Comment on above: Result Comment: Non- GFR Calc Performed By: #### L 100.0500, L500.4050 #### [facility] [address] [place], [address] Globulin (S) [Mass/Vol] 4.3 g/dL High 2.2-4.2 [facility] Comment on above: Performed By: #### L 100.0500, L500.4050 #### [facility] [address] [place], [address] Glucose [Mass/Vol] 98 mg/dL Normal 74-106 [facility] Comment on above: Performed By: #### L 100.0500, L500.4050 #### [facility] [address] [place], [address] Potassium [Moles/Vol] 3.4 mmol/L Low 3.5-5.1 [facility] Comment on above: Performed By: #### L 100.0500, L500.4050 #### [facility] [address] [place], [address] Sodium [Moles/Vol] 137 mmol/L Normal 136-145 [facility] Comment on above: Performed By: #### L 100.0500, L500.4050 #### [facility] [address] [place], [address] T PROT 8.0 g/dL Normal 6.4-8.2 [facility] Comment on above: Performed By: #### L 100.0500, L500.4050 #### [facility] [address] [place], [address] Urea nitrogen [Mass/Vol] 2 mg/dL Low 7-18 [facility] Comment on above: Performed By: #### L 100.0500, L500.4050 #### [facility] [address] [place], [address] Emergency Department Summary on 03-02-2024 Emergency Department Summary [facility] Medical Records Department [address] [place] [address] Emergency Department Summary 03/02/24 MR#: [id number] Acct: [id number] Name: TAPAN DAILEY Rep #: [id number] : 1980 43 From: Ewa Condon DO PCP: Dr. Luis Carnes MD Status:ADM IN Location: [address] History of Present Illness Chief Complaint: [...] other complaints or concerns at this time. [facility] Medical History Alcoholic liver disease [...] rashes MDM (more content not included)... Normal [facility] H AND P Exam - Hospitaliston 03-02-2024 H&P Exam - Hospitalist [facility] Medical Records Department [address] [place] [address] H P Exam - Hospitalist 03/02/24 1558 MR#: [id number] Acct: [id number] Name: TAPAN DAILEY Rep #: [id number] : 1980 43 From: María Elena Steiner MD PCP: Dr. Luis Carnes MD Status:ADM IN Location: [facility] [id number] HPI - General General Date of Admission: [...] lipase 44, UDS negative, ethyl alcohol 246. REPLACED BY [facility] Medical History Alcoholic liver disease Protein C [...] JVD no (more content not included)... Normal [facility] Lipaseon 03-02-2024 Lipase [Catalytic activity/Vol] 44 U/L Normal 13-75 [facility] Comment on above: Result Comment: Dio yu note: LIPASE revised reference range effective 22. New Lipase methodology. Expected to produce lower values than the previous assay method. NEW Reference Range: 13 - 75 U/L Performed By: #### L 100.0500, L500.4050 #### [facility] [address] [facility] [place], [place], [id number] Lipase measurementOrdered By : Ewa Condon on 03-02-2024 Lipase [Catalytic activity/Vol] 44 U/L 13-75 [facility] Comment on above: Please note:LIPASE r evised reference range effective 22. New Lipase methodology. Expected to produce lower values than the previous assay method. NEW Reference Range: 13 - 75 U/L Magnesiumon 03-02-2024 Magnesium [Mass/Vol] 1.8 mg/dL Normal 1.6-2.6 [facility] Comment on above: Order Comment: Comme nts: May add to ED labsComments: may add to ED labs Performed By: #### L 100.0500, L500.4050 #### [facility] [address] [place], [address] Methadone, urineOrdered By: Ewa Condon on 03-02-2024 Urine Methadone Screen Negative < 300 ng/mL [facility] No Panel InformationOrdered By: Ewa Condon on 03-02-2024 Urine Drug Screen Comment [facility] Comment on above: CONFIRMATORY TESTING FOR ALL [...] MUST BE ORDERED SEPARATELY. USE TESTMNEMONIC: [facility] Pathologist review Milton (Unsp spec) [Interp]Ordered By: Ewa Condon on 03-02-2024 Differential Pathologist's Review Reviewed [facility] Comment on above: Previous reported re sult: Jovita liang Edited by: LYDIA on 03/03/24:1002PolycythemiaClinical correlation necessary.Bartolo Yadav M.D. 03/03/24 AMENDED REPORT 03/03/24 1002 PATH REV previously reported as: Jovita liang Phosphoruson 03-02-2024 Phosphate [Mass/Vol] 2.0 mg/dL Low 2.5-4.9 [facility] Comment on above: Order Comment: Comme nts: May add to ED labsComments: may add to ED labs Performed By: #### L 100.0500, L500.4050 #### [facility] [address] [place], [address] Quantitative urine opiates m easurementOrdered By: Ewa Condon on 03-02-2024 Opiates Ql (U) Negative < 300 ng/mL [facility] Serum ethanol measurementOrd ered By: Ewa Condon on 03-02-2024 Ethyl Alcohol Level 246.0 mg/dL [facility] Comment on above: The serum:whole bloo d ethanol ratio is approximately 1.14and varies slightly with hematocrit. Medical Alcohol reference interval and critical value innon-tolerant individuals; 50 - 100 Impairment 100 Intoxication 100 - 250 Severe Poisoning 250 - 400 Deep/possible fatal coma Urine Drug Screen (VISTA)on 03-02-2024 AMPHETAMINES Negative Normal <1000 ng/mL [facility] Comment on above: Performed By: #### L 100.0500, L500.4050 #### [facility] [address] [place] [address] BARBITIURATES Negative Normal < 200 ng/mL [facility] Comment on above: Performed By: #### L 100.0500, L500.4050 #### [facility] [address] [place] [address] BENZODIAZIPINE Negative Normal < 200 ng/mL [facility] Comment on above: Performed By: #### L 100.0500, L500.4050 #### [facility] [address] [place], [address] COCAINE Negative Normal < 300 ng/mL [facility] Comment on above: Performed By: #### L 100.0500, L500.4050 #### [facility] [address] [place], [address] ECSTACY Negative Normal < 500 ng/mL [facility] Comment on above: Performed By: #### L 100.0500, L500.4050 #### [facility] [address] [facility] [address] METHADONE Negative Normal < 300 ng/mL [facility] Comment on above: Performed By: #### L 100.0500, L500.4050 #### [facility] [address] [place], [address] OPIATES Negative Normal < 300 ng/mL [facility] Comment on above: Performed By: #### L 100.0500, L500.4050 #### [facility] [address] [place], [address] PCP Negative Normal < 25 ng/mL [facility] Comment on above: Performed By: #### L 100.0500, L500.4050 #### [facility] [address] [place], [address] THC Negative Normal < 50 ng/mL [facility] Comment on above: Performed By: #### L 100.0500, L500.4050 #### [facility] [address] [place], [address] VISTA UDS PH 7 Normal [facility] Comment on above: Performed By: #### L 100.0500, L500.4050 #### [facility] [address] [place], [address] Urine amphetamine measuremen tOrdered By: Ewa Condon on 03-02-2024 Amphetamines Ql (U) Negative <1000 ng/mL [facility] Urine barbiturates measureme ntOrdered By: Ewa Condon on 03-02-2024 Urine Barbiturates Screen Negative < 200 ng/mL [facility] Urine benzodiazepine levelOr dered By: Ewa Condon on 03-02-2024 Benzodiazepines Ql (U) Negative < 200 ng/mL [facility] Urine cocaine levelOrdered B y: Ewa Condon on 03-02-2024 Cocaine Ql (U) Negative < 300 ng/mL [facility] Urine rcdyb-[id number] abinol (THC) measurementOrdered By: Ewa Condon on 03-02-2024 Cannabinoids Screen Ql (U) Negative < 50 ng/mL [facility] Urine methylenedioxymethamph etamine (MDMA) measurementOrdered By: Ewa Condon on 03-02-2024 MDMA (Ecstasy) Screen Negative < 500 ng/mL [facility] Urine phencyclidine (PCP) de tectionOrdered By: Ewa Condon on 03-02-2024 Phencyclidine Ql (U) Negative < 25 ng/mL [facility]) [facility] TAPAN DAILEY ([id number]) 1980 M [facility] Date Time Provider Department 02/20/23 FRANK NEWMAN [facility] During your visit today, we recorded the [...] Date Reviewed: 02/19/2023 Reviewed by: Asif Ordaz APRN.[employer] - Fully Assessed Reason for Visit: Results [...] Chronic Routine general medical examination at a [facility]*12/08/2008 11/28/2011 Class: Chronic Tobacco Use Disorder [F17.200] 12/08/2008 Chronic pain syndrome [G89.4] 11/28/2011 Gallstones [K80.20] 04/11/2020 04/11/2020 ETOHism (HCC) [F10.20] 04/29/2021 COVID-19 [U07.1] 09/18/2021 Other pulmonary embolism without acute cor pulm*09/18/2021 Neuropathy, alcoholic (HCC) [G62.1] 01/20/2022 Encounter Status:Closed by CARMEN MILLER on 02/23/23 [facility] CNOVdavid 02-19-2023 CNOV Office Visit ([facility]WSTR ) -------- TAPAN DAILEY ([id number]) 1980 M [facility] Date Time Provider Department 02/19/23 6:30 PM ASIF ORDAZ [facility] During your visit today, we recorded the following information about you: Temperature Pulse Respiration Blood pressure 99 degrees 113/minute 18/minute 97/63 Weight 74.8 kg Asif Ordaz APRN.CNP 02/19/2023 7:02 PM Signed Subjective HPI Nontoxic-appearing [...] is norm (more content not included)... Normal [facility] FLUABV + SARS-CoV-2 Pnl Resp ULI+prbon 02-19-2023 Influenza virus A and B RNA and SARS-CoV-2 (COVID-19) N gene panel ULI+probe (Resp) COVID 19 RESULT: Not detected The method used is RT-PCR or an equivalent NAAT method. Reference Range (the expected result in uninfected individuals): Not detected INFLUENZA A PCR: Not detected INFLUENZA B PCR: Detected Abnormal [facility] Comment on above: Performed By: #### 9 [id number] #### [facility] CLIA [id number] [address] [place] [address] Absolute lymphocyte counton 01-02-2022 Lymphocytes Auto (Unsp spec) [#/Vol] 1.98 10*3/uL 0.83-4.51 [facility] Work Phone: Amorphous sediment detection in urine sediment by light microscopyon 01-02-2022 Amorphous sediment LM Ql (Urine sed) 1+ [facility] Work Phone: Comment on above: Previous reported re sult: R Edited by: DEMARIO on 01/02/22:0200 Basophil percentageon 2021 Basophil percentage 2.7 mg/dL 2.5-4.9 [facility] Work Phone: [phone] Basophils/100 WBC (Bld) 0.6 % 0-1 [facility] Work Phone: [phone] Bilirubin [Mass/Vol] 2.00 mg/dL 0.20-1.00 [facility] Work Phone: [phone] Comment on above: For patients on eltr ombopag therapy, use of Dimension Wilson TBIL is not recommended. Chloride [Moles/Vol] 98 mmol/L 98-107 [facility] Work Phone: [phone] Eosinophils/100 WBC (Bld) 0.6 % 0-5 [facility] Work Phone: [phone] Glucose [Mass/Vol] 149 mg/dL 74-106 [facility] Work Phone: [phone] Comment on above: Fasting Glucose resu lt greater than or equal to 126 mg/dL suggests DIABETES MELLITUS per A.D.A. criteria. Neutrophils (Bld) [#/Vol] 7.7 10*3/uL 2.0-7.7 [facility] Work Phone: Neutrophils/100 WBC (Bld) 72.0 % 47-70 [facility] Work Phone: Potassium [Moles/Vol] 3.1 mmol/L 3.5-5.1 [facility] Work Phone: Protein [Mass/Vol] 8.3 g/dL 6.4-8.2 [facility] Work Phone: Sodium [Moles/Vol] 137 mmol/L 136-145 [facility] Work Phone: WBC (Bld) [#/Vol] 10.6 10*3/uL 4.4-11.0 [facility] Work Phone: [phone] Basophil percentage 0 SEEN /hpf 0-5 [facility] Work [facility]: [phone] Bilirubin Test strip Ql (U)o n 01-02-2022 Bilirubin Ql (U) Negative Negative [facility] Work Phone: [phone] Blood erythrocytes count (nu mber/volume)on 01-02-2022 RBC (Bld) [#/Vol] 4.43 10*6/uL 4.6-6.2 [facility] Work Phone: Blood hemoglobin measurement (mass/volume)on 01-02-2022 Hemoglobin (Bld) [Mass/Vol] 16.0 g/dL 13.0-16.5 [facility] Work Phone: Blood lymphocytes/100 leukoc yteson 01-02-2022 Lymphocytes/100 WBC (Bld) 18.6 % 19-41 [facility] Work Phone: Blood monocytes/100 leukocyt eson 01-02-2022 Monocytes/100 WBC (Bld) 7.6 % 0-10 [facility] Work Phone: [phone] Blood platelet mean volumeon 01-02-2022 Platelet mean volume (Bld) [Entitic vol] 11.2 fL 6.2-12.0 [facility] Work Phone: Determination of erythrocyte mean corpuscular volume (MCV)on 01-02-2022 MCV (RBC) [Entitic vol] 105.9 fL 80-94 [facility] Work Phone: [phone] Hematocrit Auto (Bld) [Volum e fraction]on 01-02-2022 Hematocrit (Bld) [Volume fraction] 46.9 % 40-54 [facility] Work Phone: [phone] Ketones Test strip Ql (U)on 01-02-2022 Ketones Ql (U) Negative Negative [facility] Work Phone: Laboratory - Chemistry and C hemistry - challengeon 01-02-2022 ALP [Catalytic activity/Vol] 215 U/L 45-117 [facility] Work Phone: [phone] ALT [Catalytic activity/Vol] 33 U/L 16-61 [facility] Work Phone: [phone] CO2 [Moles/Vol] 28.0 mmol/L 21.0-32.0 [facility] Work Phone: [phone] Globulin (S) [Mass/Vol] 5.2 g/dL 2.2-4.2 [facility] Work Phone: [phone] Lipase [Catalytic activity/Vol] 81 U/L 73-393 [facility] Work Phone: [phone] Magnesium [Mass/Vol] 1.4 mg/dL 1.6-2.6 [facility] Work Phone: [phone] Urea nitrogen/Creatinine [Mass ratio] 4.0 mg/mg 10-20 [facility] Work Phone: [phone] Laboratory - Drug toxicology on 01-02-2022 Amphetamines Ql (U) Negative <1000 ng/mL [facility] Work Phone: [phone] Benzodiazepines Ql (U) Negative < 200 ng/mL [facility] Work Phone: Cannabinoids Screen Ql (U) Negative < 50 ng/mL [facility] Work Phone: Cocaine Ql (U) Negative < 300 ng/mL [facility] Work Phone: Opiates Ql (U) Negative < 300 ng/mL [facility] Work Phone: Laboratory - Hematology and Cell countson 01-02-2022 Erythrocyte distribution width (RBC) [Entitic vol] 62.8 fL 35.1-43.9 [facility] Work Phone: Erythrocyte distribution width (RBC) [Ratio] 15.9 % 11.6-14.6 [facility] Work Phone: Immature granulocytes/100 WBC (Bld) 0.600 % 0.0-0.9 [facility] Work Phone: Comment on above: IG% - Immature Granu locytes (promyelocytes, myelocytes and metamyelocytes) > 1% indicates that a LEFT SHIFT is Present. MCH (RBC) [Entitic mass] 36.1 pg 27.0-32.0 [facility] Work Phone: Nucleated RBC/100 WBC (Bld) [Ratio] 0 % 0-5 [facility] Work Phone: MCHC Auto (RBC) [Mass/Vol]on 01-02-2022 MCHC (RBC) [Mass/Vol] 34.1 g/dL 32-36 [facility] Work Phone: Mucus LM Ql (Urine sed)on Mucus Ql (Urine sed) 0 SEEN /hpf [facility] Work Phone: Nitrite Test strip Ql (U)on 01-02-2022 Nitrite Ql (U) Negative Negative [facility] Work Phone: No Panel Informationon 01-02 Estimated Creatinine Clearance Calc 134.75 ml/min [facility] Work Phone: Estimated GFR (MDRD) Amer 146 mL/min >60 [facility] Work Phone: Comment on above: GFR Calc Estimated GFR (MDRD) Non-Af Amer 121 mL/min >60 [facility] Work Phone: Comment on above: Non- GFR Calc Ethyl Alcohol Level 44.0 mg/dL [facility] Work Phone: Comment on above: The serum:whole bloo d ethanol ratio is approximately 1.14and varies slightly with hematocrit. Medical Alcohol reference interval and critical value innon-tolerant individuals; 50 - 100 Impairment 100 Intoxication 100 - 250 Severe Poisoning 250 - 400 Deep/possible fatal coma MDMA (Ecstasy) Screen Negative < 500 ng/mL [facility] Work Phone: Urine Barbiturates Screen Negative < 200 ng/mL [facility] Work Phone: Urine Drug Screen Comment [facility] Work Phone: Comment on above: CONFIRMATORY TESTING [...] Methadone Screen Negative < 300 ng/mL [facility] Work Phone: Platelets bldon 01-02-2022 Platelets (Bld) [#/Vol] 174 10*3/uL 150-450 [facility] Work Phone: Protein Test strip Ql (U)on 01-02-2022 Protein Ql (U) Negative Negative [facility] Work Phone: Serum or plasma albumin betty urement (mass/volume)on 01-02-2022 Albumin [Mass/Vol] 3.1 g/dL 3.2-5.0 [facility] Work Phone: Serum or plasma albumin/glob ulin mass ratioon 01-02-2022 Albumin/Globulin [Mass ratio] 0.6 {ratio} 0.9-2.4 [facility] Work Phone: Serum or plasma calcium betty urement (mass/volume)on 01-02-2022 Calcium [Mass/Vol] 9.0 mg/dL 8.5-10.1 [facility] Work Phone: Serum or plasma creatinine m easurement (mass/volume)on 01-02-2022 Creatinine [Mass/Vol] 0.75 mg/dL 0.70-1.30 [facility] Work Phone: Comment on above: The validity of the calculated GFR & GFRAA in patients over 70 years has not been determined. Clinical correlation is essential. Serum or plasma urea nitroge n measurement (mass/volume)on 01-02-2022 Urea nitrogen [Mass/Vol] 3 mg/dL 7-18 [facility] Work Phone: Squamous epithelial cells de tection in urine sediment by light microscopyon 01-02-2022 Epithelial cells.squamous LM Ql (Urine sed) 0 SEEN /hpf 0-5 [facility] Work Phone: Thin prep Papanicolaou smear with manual screeningon 01-02-2022 Thin prep Papanicolaou smear with manual screening 89 U/L 15-37 [facility] Work Phone: Thin prep Papanicolaou smear with manual screening 5-15 [facility] Work Phone: Urine blood detectionon 12-24 RBC Ql (U) Negative Negative [facility] Work Phone: RBC Ql (U) 0 SEEN /hpf 0-5 [facility] Work Phone: Urine clarityon 01-02-2022 Clarity (U) Clear Clear [facility] Work Phone: Urine color determinationon 01-02-2022 Color (U) Yellow Yellow [facility] Work Phone: Urine glucose detectionon Glucose Ql (U) Normal mg/dl Normal [facility] Work Phone: Urine leukocyte esterase det ection by dipstickon 01-02-2022 Leukocyte esterase Test strip Ql (U) 25 /ul Negative [facility] Work Phone: Urine pHon 01-02-2022 pH (U) 7.0 [pH] 5.0 - 8.0 [facility] Work Phone: Urine phencyclidine (PCP) de tectionon 01-02-2022 Phencyclidine Ql (U) Negative < 25 ng/mL [facility] Work Phone: Urine sediment bacteria coun t by microscopy (number/high power field)on 01-02-2022 Bacteria LM.HPF (Urine sed) [#/Area] 1 /[HPF] None Seen [facility] Work Phone: Urine specific gravity measu rementon 01-02-2022 Specific gravity (U) [Rel density] 1.005 1.002-1.030 [facility] Work Phone: [phone] Urobilinogen Auto test strip Ql (U)on 01-02-2022 Urobilinogen Ql (U) 8 mg/dl Normal [facility] Work Phone: Absolute lymphocyte counton 12-03-2021 Lymphocytes Auto (Unsp spec) [#/Vol] 2.46 10*3/uL 0.83-4.51 [facility] Work Phone: Basophil percentageon 2021 Basophils/100 WBC (Bld) 0.9 % 0-1 [facility] Work Phone: Bilirubin [Mass/Vol] 0.80 mg/dL 0.20-1.00 [facility] Work Phone: [phone] Comment on above: For patients on eltr ombopag therapy, use of Dimension Wilson TBIL is not recommended. Chloride [Moles/Vol] 105 mmol/L 98-107 [facility] Work Phone: Eosinophils/100 WBC (Bld) 0.8 % 0-5 [facility] Work Phone: Glucose [Mass/Vol] 143 mg/dL 74-106 [facility] Work Phone: Comment on above: Fasting Glucose resu lt greater than or equal to 126 mg/dL suggests DIABETES MELLITUS per A.D.A. criteria. Neutrophils (Bld) [#/Vol] 5.9 10*3/uL 2.0-7.7 [facility] Work Phone: Neutrophils/100 WBC (Bld) 62.9 % 47-70 [facility] Work Phone: Potassium [Moles/Vol] 3.5 mmol/L 3.5-5.1 [facility] Work Phone: Protein [Mass/Vol] 7.6 g/dL 6.4-8.2 [facility] Work Phone: Sodium [Moles/Vol] 140 mmol/L 136-145 [facility] Work Phone: WBC (Bld) [#/Vol] 9.3 10*3/uL 4.4-11.0 [facility] Work Phone: Blood erythrocytes count (nu mber/volume)on 12-03-2021 RBC (Bld) [#/Vol] 3.89 10*6/uL 4.6-6.2 [facility] Work Phone: Blood hemoglobin measurement (mass/volume)on 12-03-2021 Hemoglobin (Bld) [Mass/Vol] 13.4 g/dL 13.0-16.5 [facility] Work Phone: Blood lymphocytes/100 leukoc yteson 12-03-2021 Lymphocytes/100 WBC (Bld) 26.5 % 19-41 [facility] Work Phone: Blood manual differential co mment interpretation (narrative result)on 12-03-2021 Manual differential comment Milton (Bld) [Interp] SCANNED [facility] Work Phone: Blood monocytes/100 leukocyt eson 12-03-2021 Monocytes/100 WBC (Bld) 8.0 % 0-10 [facility] Work Phone: Blood platelet mean volumeon 12-03-2021 Platelet mean volume (Bld) [Entitic vol] 9.7 fL 6.2-12.0 [facility] Work Phone: Determination of erythrocyte mean corpuscular volume (MCV)on 12-03-2021 MCV (RBC) [Entitic vol] 99.7 fL 80-94 [facility] Work Phone: Hematocrit Auto (Bld) [Volum e fraction]on 12-03-2021 Hematocrit (Bld) [Volume fraction] 38.8 % 40-54 [facility] Work Phone: Hypochromatic red blood cell detectionon 12-03-2021 Hypochromia Ql (Bld) 2+ [facility] Work [facility]: INR in Blood by Coagulation assayon 12-03-2021 INR Coag (Bld) [Relative time] 1.1 {INR} [facility] Work Phone: Laboratory - Chemistry and C hemistry - challengeon 12-03-2021 ALP [Catalytic activity/Vol] 212 U/L 45-117 [facility] Work Phone: ALT [Catalytic activity/Vol] 51 U/L 16-61 [facility] Work Phone: CO2 [Moles/Vol] 25.0 mmol/L 21.0-32.0 [facility] Work Phone: Globulin (S) [Mass/Vol] 4.5 g/dL 2.2-4.2 [facility] Work Phone: Urea nitrogen/Creatinine [Mass ratio] 3.4 mg/mg 10-20 [facility] Work Phone: Laboratory - Coagulationon 1 aPTT Coag (Bld) [Time] 30.4 s 24.1-36.2 [facility] Work Phone: PT Coag (PPP) [Time] 13.9 s 11.7-14.9 [facility] Work Phone: Laboratory - Hematology and Cell countson 12-03-2021 Anisocytosis Ql (Bld) 2+ [facility] Work Phone: Erythrocyte distribution width (RBC) [Entitic vol] 78.0 fL 35.1-43.9 [facility] Work Phone: Erythrocyte distribution width (RBC) [Ratio] 21.5 % 11.6-14.6 [facility] Work Phone: Immature granulocytes/100 WBC (Bld) 0.900 % 0.0-0.9 [facility] Work Phone: Comment on above: IG% - Immature Granu locytes (promyelocytes, myelocytes and metamyelocytes) > 1% indicates that a LEFT SHIFT is Present. MCH (RBC) [Entitic mass] 34.4 pg 27.0-32.0 [facility] Work Phone: Nucleated RBC/100 WBC (Bld) [Ratio] 0 % 0-5 [facility] Work Phone: MCHC Auto (RBC) [Mass/Vol]on 12-03-2021 MCHC (RBC) [Mass/Vol] 34.5 g/dL 32-36 [facility] Work Phone: No Panel Informationon 12-03 D-Dimer Quantitative (PE/DVT) 0.47 FEU/ug/m 0.27-0.49 [facility] Work Phone: Comment on above: NORMAL D-Dimer level (<0.50) indicates no DVT or PE. Estimated GFR (MDRD) Amer 196 mL/min >60 [facility] Work Phone: Comment on above: GFR Calc Estimated GFR (MDRD) Non-Af Amer 162 mL/min >60 [facility] Work Phone: Comment on above: Non- GFR Calc Platelets bldon 12-03-2021 Platelets (Bld) [#/Vol] 256 10*3/uL 150-450 [facility] Work Phone: Serum or plasma albumin betty urement (mass/volume)on 12-03-2021 Albumin [Mass/Vol] 3.1 g/dL 3.2-5.0 [facility] Work Phone: [phone] Serum or plasma albumin/glob ulin mass ratioon 12-03-2021 Albumin/Globulin [Mass ratio] 0.7 {ratio} 0.9-2.4 [facility] Work Phone: [phone] Serum or plasma calcium betty urement (mass/volume)on 12-03-2021 Calcium [Mass/Vol] 8.8 mg/dL 8.5-10.1 [facility] Work Phone: Serum or plasma creatinine m easurement (mass/volume)on 12-03-2021 Creatinine [Mass/Vol] 0.59 mg/dL 0.70-1.30 [facility] Work Phone: Comment on above: The validity of the calculated GFR & GFRAA in patients over 70 years has not been determined. Clinical correlation is essential. Serum or plasma urea nitroge n measurement (mass/volume)on 12-03-2021 Urea nitrogen [Mass/Vol] 2 mg/dL 7-18 [facility] Work Phone: Target cell detectionon 11-23 Target cells LM Ql (Bld) RARE [facility] Work Phone: Thin prep Papanicolaou smear with manual screeningon 12-03-2021 Thin prep Papanicolaou smear with manual screening 103 U/L 15-37 [facility] Work Phone: [phone] Thin prep Papanicolaou smear with manual screening 10 5-15 [facility] Work Phone: Thin prep Papanicolaou smear with manual screening 170 U/L 87-241 [facility] Work Phone: Basophil percentageon 2021 Bilirubin [Mass/Vol] 1.60 mg/dL 0.20-1.00 [facility] Work Phone: Comment on above: For patients on eltr ombopag therapy, use of Dimension Wilson TBIL is not recommended. Chloride [Moles/Vol] 101 mmol/L 98-107 [facility] Work Phone: Glucose [Mass/Vol] 111 mg/dL 74-106 [facility] Work Phone: Comment on above: Fasting Glucose resu lt from 100 to 125 mg/dL suggests IMPAIRED HOMEOSTASIS per A.D.A. criteria. Potassium [Moles/Vol] 4.5 mmol/L 3.5-5.1 [facility] Work Phone: Protein [Mass/Vol] 6.9 g/dL 6.4-8.2 [facility] Work Phone: Sodium [Moles/Vol] 135 mmol/L 136-145 [facility] Work Phone: Laboratory - Chemistry and C hemistry - challengeon 11-22-2021 ALP [Catalytic activity/Vol] 188 U/L 45-117 [facility] Work Phone: ALT [Catalytic activity/Vol] 78 U/L 16-61 [facility] Work Phone: CO2 [Moles/Vol] 27.0 mmol/L 21.0-32.0 [facility] Work Phone: Globulin (S) [Mass/Vol] 4.2 g/dL 2.2-4.2 [facility] Work Phone: Magnesium [Mass/Vol] 1.6 mg/dL 1.6-2.6 [facility] Work Phone: Urea nitrogen/Creatinine [Mass ratio] 9.1 mg/mg 10-20 [facility] Work Phone: No Panel Informationon 11-22 Estimated Creatinine Clearance Calc 125.55 ml/min [facility] Work Phone: Estimated GFR (MDRD) Amer 143 mL/min >60 [facility] Work Phone: Comment on above: GFR Calc Estimated GFR (MDRD) Non-Af Amer 118 mL/min >60 [facility] Work Phone: Comment on above: Non- GFR Calc Serum or plasma albumin betty urement (mass/volume)on 11-22-2021 Albumin [Mass/Vol] 2.7 g/dL 3.2-5.0 [facility] Work Phone: Serum or plasma albumin/glob ulin mass ratioon 11-22-2021 Albumin/Globulin [Mass ratio] 0.6 {ratio} 0.9-2.4 [facility] Work Phone: Serum or plasma calcium betty urement (mass/volume)on 11-22-2021 Calcium [Mass/Vol] 8.9 mg/dL 8.5-10.1 [facility] Work Phone: Serum or plasma creatinine m easurement (mass/volume)on 11-22-2021 Creatinine [Mass/Vol] 0.77 mg/dL 0.70-1.30 [facility] Work Phone: Comment on above: The validity of the calculated GFR & GFRAA in patients over 70 years has not been determined. Clinical correlation is essential. Serum or plasma urea nitroge n measurement (mass/volume)on 11-22-2021 Urea nitrogen [Mass/Vol] 7 mg/dL 7-18 [facility] Work Phone: Thin prep Papanicolaou smear with manual screeningon 11-22-2021 Thin prep Papanicolaou smear with manual screening 195 U/L 15-37 [facility] Work Phone: Thin prep Papanicolaou smear with manual screening 7 5-15 [facility] Work Phone: Basophil percentageon 2021 Basophil percentage 0 SEEN /hpf 0-5 [facility] Work Phone: Basophil percentage 2.9 mg/dL 2.5-4.9 [facility] Work Phone: Bilirubin Test strip Ql (U)o n 11-21-2021 Bilirubin Ql (U) Negative Negative [facility] Work Phone: Ketones Test strip Ql (U)on 11-21-2021 Ketones Ql (U) Negative Negative [facility] Work Phone: Mucus LM Ql (Urine sed)on Mucus Ql (Urine sed) 0 SEEN /hpf [facility] Work Phone: Nitrite Test strip Ql (U)on 11-21-2021 Nitrite Ql (U) Negative Negative [facility] Work Phone: Protein Test strip Ql (U)on 11-21-2021 Protein Ql (U) Negative Negative [facility] Work Phone: Squamous epithelial cells de tection in urine sediment by light microscopyon 11-21-2021 Epithelial cells.squamous LM Ql (Urine sed) 0 SEEN /hpf 0-5 [facility] Work Phone: Urine blood detectionon 10-25 RBC Ql (U) 25 /ul Negative [facility] Work Phone: RBC Ql (U) 0-5 SEEN /hpf 0-5 [facility] Work Phone: Urine clarityon 11-21-2021 Clarity (U) Clear Clear [facility] Work Phone: Urine color determinationon 11-21-2021 Color (U) Yellow Yellow [facility] Work Phone: Urine glucose detectionon Glucose Ql (U) Normal mg/dl Normal [facility] Work Phone: Urine leukocyte esterase det ection by dipstickon 11-21-2021 Leukocyte esterase Test strip Ql (U) Negative Negative [facility] Work Phone: Urine pHon 11-21-2021 pH (U) 8.0 [pH] 5.0 - 8.0 [facility] Work Phone: Urine sediment bacteria coun t by microscopy (number/high power field)on 11-21-2021 Bacteria LM.HPF (Urine sed) [#/Area] 0 /[HPF] None Seen [facility] Work Phone: Urine specific gravity measu rementon 11-21-2021 Specific gravity (U) [Rel density] 1.015 1.002-1.030 [facility] Work Phone: Urobilinogen Auto test strip Ql (U)on 11-21-2021 Urobilinogen Ql (U) 8 mg/dl Normal [facility] Work Phone: [phone] Absolute lymphocyte counton 11-19-2021 Lymphocytes Auto (Unsp spec) [#/Vol] 2.19 10*3/uL 0.83-4.51 [facility] Work Phone: Basophil percentageon 2021 Basophils/100 WBC (Bld) 0.3 % 0-1 [facility] Work Phone: Bilirubin [Mass/Vol] 3.50 mg/dL 0.20-1.00 [facility] Work Phone: Comment on above: For patients on eltr ombopag therapy, use of Dimension Wilson TBIL is not recommended. Chloride [Moles/Vol] 89 mmol/L 98-107 [facility] Work Phone: Eosinophils/100 WBC (Bld) 0.4 % 0-5 [facility] Work Phone: Glucose [Mass/Vol] 101 mg/dL 74-106 [facility] Work Phone: Comment on above: Fasting Glucose resu lt from 100 to 125 mg/dL suggests IMPAIRED HOMEOSTASIS per A.D.A. criteria. Neutrophils (Bld) [#/Vol] 6.9 10*3/uL 2.0-7.7 [facility] Work Phone: [phone] Neutrophils/100 WBC (Bld) 66.8 % 47-70 [facility] Work Phone: Potassium [Moles/Vol] 2.5 mmol/L 3.5-5.1 [facility] Work Phone: Comment on above: Critical Result(s) C alled at: 21:23:51 11/19/2021 by: VASILE STEINER TO GIANNA DELUCA. Results read back by same. Protein [Mass/Vol] 8.2 g/dL 6.4-8.2 [facility] Work Phone: [phone] Sodium [Moles/Vol] 134 mmol/L 136-145 [facility] Work Phone: [phone] WBC (Bld) [#/Vol] 10.3 10*3/uL 4.4-11.0 [facility] Work Phone: [phone] Blood erythrocytes count (nu mber/volume)on 11-19-2021 RBC (Bld) [#/Vol] 4.66 10*6/uL 4.6-6.2 [facility] Work Phone: [phone] Blood hemoglobin measurement (mass/volume)on 11-19-2021 Hemoglobin (Bld) [Mass/Vol] 15.3 g/dL 13.0-16.5 [facility] Work Phone: Blood lymphocytes/100 leukoc yteson 11-19-2021 Lymphocytes/100 WBC (Bld) 21.3 % 19-41 [facility] Work Phone: Blood monocytes/100 leukocyt eson 11-19-2021 Monocytes/100 WBC (Bld) 10.9 % 0-10 [facility] Work Phone: [phone] Blood platelet adequacy dete ction by light microscopyon 11-19-2021 Platelets LM Ql (Bld) SLT DEC [facility] Work Phone: [phone] Blood platelet mean volumeon 11-19-2021 Platelet mean volume (Bld) [Entitic vol] 10.5 fL 6.2-12.0 [facility] Work Phone: [phone] Determination of erythrocyte mean corpuscular volume (MCV)on 11-19-2021 MCV (RBC) [Entitic vol] 93.6 fL 80-94 [facility] Work Phone: [phone] Hematocrit Auto (Bld) [Volum e fraction]on 11-19-2021 Hematocrit (Bld) [Volume fraction] 43.6 % 40-54 [facility] Work Phone: [phone] INR in Blood by Coagulation assayon 11-19-2021 INR Coag (Bld) [Relative time] 1.1 {INR} [facility] Work Phone: [phone] Laboratory - Chemistry and C hemistry - challengeon 11-19-2021 ALP [Catalytic activity/Vol] 201 U/L 45-117 [facility] Work Phone: ALT [Catalytic activity/Vol] 70 U/L 16-61 [facility] Work Phone: CO2 [Moles/Vol] 31.0 mmol/L 21.0-32.0 [facility] Work Phone: [phone] Globulin (S) [Mass/Vol] 4.9 g/dL 2.2-4.2 [facility] Work Phone: [phone] Lipase [Catalytic activity/Vol] 93 U/L 73-393 [facility] Work Phone: [phone] Urea nitrogen/Creatinine [Mass ratio] 9.9 mg/mg 10-20 [facility] Work Phone: [phone] Laboratory - Coagulationon 0 11-19-2021 aPTT Coag (Bld) [Time] 31.1 s 24.1-36.2 [facility] Work Phone: [phone] PT Coag (PPP) [Time] 13.6 s 11.7-14.9 [facility] Work Phone: [phone] Laboratory - Drug toxicology on 11-19-2021 Amphetamines Ql (U) Negative <1000 ng/mL [facility] Work Phone: [phone] Benzodiazepines Ql (U) Negative < 200 ng/mL [facility] Work Phone: [phone] Cannabinoids Screen Ql (U) Negative < 50 ng/mL [facility] Work Phone: [phone] Cocaine Ql (U) Negative < 300 ng/mL [facility] Work Phone: [phone] Opiates Ql (U) Negative < 300 ng/mL [facility] Work Phone: Laboratory - Hematology and Cell countson 11-19-2021 Anisocytosis Ql (Bld) 1+ [facility] Work Phone: Erythrocyte distribution width (RBC) [Entitic vol] 72.5 fL 35.1-43.9 [facility] Work Phone: Erythrocyte distribution width (RBC) [Ratio] 22.0 % 11.6-14.6 [facility] Work Phone: Immature granulocytes/100 WBC (Bld) 0.300 % 0.0-0.9 [facility] Work Phone: Comment on above: IG% - Immature Granu locytes (promyelocytes, myelocytes and metamyelocytes) > 1% indicates that a LEFT SHIFT is Present. MCH (RBC) [Entitic mass] 32.8 pg 27.0-32.0 [facility] Work Phone: Nucleated RBC/100 WBC (Bld) [Ratio] 0.2 % 0-5 [facility] Work Phone: MCHC Auto (RBC) [Mass/Vol]on 11-19-2021 MCHC (RBC) [Mass/Vol] 35.1 g/dL 32-36 [facility] Work Phone: Macrocytes detectionon 11-19 [facility]rocytes Ql (Bld) [facility]: No Panel Informationon 11-19 Estimated Creatinine Clearance Calc 120.84 ml/min [facility] Work Phone: Estimated GFR (MDRD) Amer 136 mL/min >60 [facility] Work Phone: Comment on above: GFR Calc Estimated GFR (MDRD) Non-Af Amer 112 mL/min >60 [facility] Work Phone: Comment on above: Non- GFR Calc Ethyl Alcohol Level 175.0 mg/dL [facility] Work Phone: Comment on above: The serum:whole bloo d ethanol ratio is approximately 1.14and varies slightly with hematocrit. Medical Alcohol reference interval and critical value innon-tolerant individuals; 50 - 100 Impairment 100 Intoxication 100 - 250 Severe Poisoning 250 - 400 Deep/possible fatal coma MDMA (Ecstasy) Screen Negative < 500 ng/mL [facility] [place] Work Phone: [phone] Urine Barbiturates Screen Negative < 200 ng/mL [facility] Work Phone: Urine Drug Screen Comment [facility] Work Phone: Comment on above: CONFIRMATORY TESTING [...] Methadone Screen Negative < 300 ng/mL [facility] Work Phone: [phone] Platelets bldon 11-19-2021 Platelets (Bld) [#/Vol] 122 10*3/uL 150-450 [facility] Work Phone: [phone] RBC morphologyon 11-19-2021 RBC morphology finding Nom (Bld) N CHROM NORMAL NORM C&C [facility] Work Phone: [phone] Serum or plasma albumin betty urement (mass/volume)on 11-19-2021 Albumin [Mass/Vol] 3.3 g/dL 3.2-5.0 [facility] Work Phone: [phone] Serum or plasma albumin/glob ulin mass ratioon 11-19-2021 Albumin/Globulin [Mass ratio] 0.7 {ratio} 0.9-2.4 [facility] Work Phone: [phone] Serum or plasma calcium betty urement (mass/volume)on 11-19-2021 Calcium [Mass/Vol] 8.9 mg/dL 8.5-10.1 [facility] Work Phone: Serum or plasma creatinine m easurement (mass/volume)on 11-19-2021 Creatinine [Mass/Vol] 0.80 mg/dL 0.70-1.30 [facility] Work Phone: Comment on above: The validity of the calculated GFR & GFRAA in patients over 70 years has not been determined. Clinical correlation is essential. Serum or plasma urea nitroge n measurement (mass/volume)on 11-19-2021 Urea nitrogen [Mass/Vol] 8 mg/dL 7-18 [facility] Work Phone: Thin prep Papanicolaou smear with manual screeningon 11-19-2021 Thin prep Papanicolaou smear with manual screening 147 U/L 15-37 [facility] Work Phone: Thin prep Papanicolaou smear with manual screening 14 5-15 [facility] Work Phone: Urine phencyclidine (PCP) de tectionon 11-19-2021 Phencyclidine Ql (U) Negative < 25 ng/mL [facility] Work Phone: Absolute lymphocyte counton 11-11-2021 Lymphocytes Auto (Unsp spec) [#/Vol] 2.02 10*3/uL 0.83-4.51 [facility] Work Phone: Basophil percentageon 2021 Basophils/100 WBC (Bld) 0.7 % 0-1 [facility] Work Phone: Bilirubin [Mass/Vol] 2.30 mg/dL 0.20-1.00 [facility] Work Phone: Comment on above: For patients on eltr ombopag therapy, use of Dimension Wilson TBIL is not recommended. Chloride [Moles/Vol] 98 mmol/L 98-107 [facility] Work Phone: Eosinophils/100 WBC (Bld) 0.4 % 0-5 [facility] Work Phone: Glucose [Mass/Vol] 108 mg/dL 74-106 [facility] Work Phone: [phone] Comment on above: Fasting Glucose resu lt from 100 to 125 mg/dL suggests IMPAIRED HOMEOSTASIS per A.D.A. criteria. Neutrophils (Bld) [#/Vol] 5.3 10*3/uL 2.0-7.7 [facility] Work Phone: Neutrophils/100 WBC (Bld) 64.6 % 47-70 [facility] Work Phone: Potassium [Moles/Vol] 3.0 mmol/L 3.5-5.1 [facility] Work Phone: Protein [Mass/Vol] 7.9 g/dL 6.4-8.2 [facility] Work Phone: [phone] Sodium [Moles/Vol] 139 mmol/L 136-145 [facility] Work Phone: [phone] WBC (Bld) [#/Vol] 8.1 10*3/uL 4.4-11.0 [facility] Work Phone: [phone] Blood erythrocytes count (nu mber/volume)on 11-11-2021 RBC (Bld) [#/Vol] 5.01 10*6/uL 4.6-6.2 [facility] Work Phone: [phone] Blood hemoglobin measurement (mass/volume)on 11-11-2021 Hemoglobin (Bld) [Mass/Vol] 16.3 g/dL 13.0-16.5 [facility] Work Phone: Blood lymphocytes/100 leukoc yteson 11-11-2021 Lymphocytes/100 WBC (Bld) 24.9 % 19-41 [facility] Work Phone: Blood manual differential co mment interpretation (narrative result)on 11-11-2021 Manual differential comment [place] (Bld) [Interp] SCANNED [facility] Work Phone: Blood monocytes/100 leukocyt eson 11-11-2021 Monocytes/100 WBC (Bld) 9.0 % 0-10 [facility] Work Phone: Blood platelet mean volumeon 11-11-2021 Platelet mean volume (Bld) [Entitic vol] 11.0 fL 6.2-12.0 [facility] Work Phone: Determination of erythrocyte mean corpuscular volume (MCV)on 11-11-2021 MCV (RBC) [Entitic vol] 91.8 fL 80-94 [facility] Work Phone: Glucose Glucometer (BldC) [M ass/Vol]on 11-11-2021 Glucose [Mass/Vol] 113 mg/dL 74-106 [facility] Work Phone: Comment on above: MANAGEMENT OF PATIEN T CARE PER NURSING PROTOCOL Hematocrit Auto (Bld) [Volum e fraction]on 11-11-2021 Hematocrit (Bld) [Volume fraction] 46.0 % 40-54 [facility] Work Phone: Laboratory - Chemistry and C hemistry - challengeon 11-11-2021 ALP [Catalytic activity/Vol] 234 U/L 45-117 [facility] Work Phone: [phone] ALT [Catalytic activity/Vol] 94 U/L 16-61 [facility] Work Phone: [phone] CO2 [Moles/Vol] 31.0 mmol/L 21.0-32.0 [facility] Work Phone: [phone] Globulin (S) [Mass/Vol] 4.9 g/dL 2.2-4.2 [facility] Work Phone: [phone] Lipase [Catalytic activity/Vol] 122 U/L 73-393 [facility] Work Phone: [phone] Urea nitrogen/Creatinine [Mass ratio] 5.2 mg/mg 10-20 [facility] Work Phone: [phone] Laboratory - Hematology and Cell countson 11-11-2021 Anisocytosis Ql (Bld) 2+ [facility] Work Phone: [phone] Erythrocyte distribution width (RBC) [Entitic vol] 74.6 fL 35.1-43.9 [facility] Work Phone: [phone] Erythrocyte distribution width (RBC) [Ratio] 23.2 % 11.6-14.6 [facility] Work Phone: Immature granulocytes/100 WBC (Bld) 0.400 % 0.0-0.9 [facility] Work Phone: Comment on above: IG% - Immature Granu locytes (promyelocytes, myelocytes and metamyelocytes) > 1% indicates that a LEFT SHIFT is Present. MCH (RBC) [Entitic mass] 32.5 pg 27.0-32.0 [facility] Work Phone: Nucleated RBC/100 WBC (Bld) [Ratio] 0 % 0-5 [facility] Work Phone: MCHC Auto (RBC) [Mass/Vol]on 11-11-2021 MCHC (RBC) [Mass/Vol] 35.4 g/dL 32-36 [facility] Work Phone: Macrocytes detectionon 11-11 Macrocytes Ql (Bld) 1+ [facility] Work Phone: No Panel Informationon 11-11 Troponin I High Sensitivity 5 pg/mL 3.0-78.0 [facility] Work Phone: Comment on above: Please Note: [place] t Units and Gender Specific Reference Ranges. For more information see Policy Stat Procedure Wilson High Sensitivity Troponin (TNIH) and attachments. Estimated Creatinine Clearance Calc 133.65 ml/min [facility] Work Phone: Estimated GFR (MDRD) Amer 143 mL/min >60 [facility] Work Phone: Comment on above: GFR Calc Estimated GFR (MDRD) Non-Af Amer 118 mL/min >60 [facility] Work Phone: Comment on above: Non- GFR Calc Ethyl Alcohol Level 279.0 mg/dL [facility] Work Phone: Comment on above: The serum:whole bloo d ethanol ratio is approximately 1.14and varies slightly with hematocrit. Medical Alcohol reference interval and critical value innon-tolerant individuals; 50 - 100 Impairment 100 Intoxication 100 - 250 Severe Poisoning 250 - 400 Deep/possible fatal coma Troponin I High Sensitivity 4 pg/mL 3.0-78.0 [facility] Work Phone: Comment on above: Please Note: New [place] t Units and Gender Specific Reference Ranges. For more information see Policy Stat Procedure Wilson High Sensitivity Troponin (TNIH) and attachments. Platelets bldon 11-11-2021 Platelets (Bld) [#/Vol] 125 10*3/uL 150-450 [facility] Work Phone: Serum or plasma albumin betty urement (mass/volume)on 11-11-2021 Albumin [Mass/Vol] 3.0 g/dL 3.2-5.0 [facility] Work Phone: Serum or plasma albumin/glob ulin mass ratioon 11-11-2021 Albumin/Globulin [Mass ratio] 0.6 {ratio} 0.9-2.4 [facility] Work Phone: Serum or plasma calcium betty urement (mass/volume)on 11-11-2021 Calcium [Mass/Vol] 8.7 mg/dL 8.5-10.1 [facility] Work Phone: Serum or plasma creatinine m easurement (mass/volume)on 11-11-2021 Creatinine [Mass/Vol] 0.77 mg/dL 0.70-1.30 [facility] Work Phone: Comment on above: The validity of the calculated GFR & GFRAA in patients over 70 years has not been determined. Clinical correlation is essential. Serum or plasma urea nitroge n measurement (mass/volume)on 11-11-2021 Urea nitrogen [Mass/Vol] 4 mg/dL 7-18 [facility] Work Phone: Thin prep Papanicolaou smear with manual screeningon 11-11-2021 Thin prep Papanicolaou smear with manual screening 1+ [facility] Work Phone: Thin prep Papanicolaou smear with manual screening 241 U/L 15-37 [facility] Work Phone: Thin prep Papanicolaou smear with manual screening 10 5-15 [facility] Work Phone: Basophil percentageon 2021 Chloride [Moles/Vol] 101 mmol/L 98-107 [facility] Work Phone: [phone] Glucose [Mass/Vol] 115 mg/dL 74-106 [facility] Work Phone: Comment on above: Fasting Glucose resu lt from 100 to 125 mg/dL suggests IMPAIRED HOMEOSTASIS per A.D.A. criteria. Potassium [Moles/Vol] 3.1 mmol/L 3.5-5.1 [facility] Work Phone: [phone] Sodium [Moles/Vol] 137 mmol/L 136-145 [facility] Work Phone: WBC (Bld) [#/Vol] 9.1 10*3/uL 4.4-11.0 [facility] Work Phone: Blood erythrocytes count (nu mber/volume)on 08-14-2021 RBC (Bld) [#/Vol] 5.39 10*6/uL 4.6-6.2 [facility] Work Phone: Blood hemoglobin measurement (mass/volume)on 08-14-2021 Hemoglobin (Bld) [Mass/Vol] 16.8 g/dL 13.0-16.5 [facility] Work Phone: Blood platelet mean volumeon 08-14-2021 Platelet mean volume (Bld) [Entitic vol] 11.4 fL 6.2-12.0 [facility] Work Phone: Determination of erythrocyte mean corpuscular volume (MCV)on 08-14-2021 MCV (RBC) [Entitic vol] 94.4 fL 80-94 [facility] Work Phone: Dilute Marito's viper venom timeon 08-14-2021 dRVVT Coag (PPP) [Time] 45.2 s 0.0-47.0 [facility] Work Phone: Functional protein C measure menton 08-14-2021 Protein C actual/normal Chromogenic method (PPP) [Rel catalytic activity/Vol] 44 % 73-180 [facility] Work Phone: Comment on above: A deficiency [...] method (PPP) [Rel catalytic activity/Vol] Not Reportable [facility] Work Phone: Hematocrit Auto (Bld) [Volum e fraction]on 08-14-2021 Hematocrit (Bld) [Volume fraction] 50.9 % 40-54 [facility] Work Phone: INR in Blood by Coagulation assayon 08-14-2021 INR Coag (Bld) [Relative time] 1.3 {INR} [facility] Work Phone: Laboratory - Chemistry and C hemistry - challengeon 08-14-2021 CO2 [Moles/Vol] 31.0 mmol/L 21.0-32.0 [facility] Work Phone: Natriuretic peptide B (Bld) [Mass/Vol] 8.3 pg/mL 0-100 [facility] Work Phone: Urea nitrogen/Creatinine [Mass ratio] 2.5 mg/mg 10-20 [facility] Work Phone: Laboratory - Coagulationon 0 08-14-2021 PT Coag (PPP) [Time] 15.6 s 11.7-14.9 [facility] Work Phone: Laboratory - Hematology and Cell countson 08-14-2021 Erythrocyte distribution width (RBC) [Entitic vol] 48.6 fL 35.1-43.9 [facility] Work Phone: Erythrocyte distribution width (RBC) [Ratio] 14.2 % 11.6-14.6 [facility] Work Phone: MCH (RBC) [Entitic mass] 31.2 pg 27.0-32.0 [facility] Work Phone: MCHC Auto (RBC) [Mass/Vol]on 08-14-2021 MCHC (RBC) [Mass/Vol] 33.0 g/dL 32-36 [facility] Work Phone: No Panel Informationon 08-14 Anti-Cardiolipin IgM Antibody 28 MPL U/mL 0-12 [facility] Work Phone: Comment on above: Negative: <13 Indete rminate: 13 - 20 Low-Med Positive: >20 - 80 High Positive: >80 CA 19-9 Antigen 12 U/mL 0-35 [facility] Work Phone: Comment on above: [facility] El ectrochemiluminescence Immunoassay(ECLIA)Values obtained with different assay methods or kits cannotbe used interchangeably. Results cannot be interpreted asabsolute evidence of the presence or absence of malignantdisease.Performed at: [address] [id number] Director: Manuel Mosqueda PhD, Phone: [phone] Factor V Leiden Mutation Comment . [facility] Work Phone: Comment on above: Result: c.1601G>A (p .[id number]) - Not DetectedThis result is not associated with an increased risk for venousthromboembolism. See Additional Clinical Information andComments.Additional Clinical Information:Venous thromboembolism is a multifactorial diseaseinfluenced by genetic, environmental, and circumstantialrisk factors. The c.1601G>A (p. Ihs320Dbp) variant in theF5 gene, commonly referred to [...] F2 c.*97G>Avariant and Factor V Leiden (PMID: 82818171). Additionalrisk factors include but are not limited [...] for health careproviders to discuss results at [phone] ([phone]).Test Details:Variant Analyzed: c.1601G>A (p. Spi608Cwv), referred toas Factor V LeidenMethods/Limitations:DNA analysis of [...] was developed and its performance characteristicsdetermined by [facility]. It has not been cleared orapproved by the Food and Drug Administration.References:Roshni S, Carmen SEWELL, Xu R, Andres WW, Gume JH; [facility]ALSProfessional Practice and Guidelines Committee. Addendum:[employer] consensus statement onfactor V Leiden mutation testing. [employer]. 2020Apr 27.doi: 10.1038/p95092-060-40129-c. PMID: 89727397.Celia RAGLAND. Factor V Leiden Thrombophilia. 1998July 06[Updated 2017Feb 26]. In: Alvaro MP, Theodore HH, Santhosh RA,et al., editors. Astrid(R) [Internet]. [place] ([place]):[facility]; 6297-4039. Availablefrom: https://www.ncbi.nlm.nih.gov/books/FJB4913/Jay S, Carmen SEWELL, Yovani X, Sam B, Sunny EB, Nahed P,Estrada CS; [facility] Laboratory Mycologist Committee.Venous thromboembolism laboratory testing (factor V Leidenand factor II c.*97G>A), 2018 update: a technical standardof the [employer] and [employer]omics(ACMG). [employer] Med. 2018 Jan;20(12):0768-9242. doi:10.1038/[id number]-p. Epub 2017Nov 27. PMID: 97899958.Carmen Barraza, PhD, Blanche Collins, PhD, Pema Pineda, PhD, Eli Ocasio, PhD, TRE Gomez, PhD, Susanna Rivers, PhD, Monika Rodas, PhD, [facility] Phase Phospholipid 4 sec 0-11 [facility] Work Phone: Miscellaneous Test See comment [facility] Work Phone: Comment on above: TEST [...] J Thromb Haem 2006;4:295-306. [facility] AT [facility] ORIGINAL REPORT ON FILE IN LAB CONTAINS ADDITIONAL TEST SITE INFORMATION. Activated Protein C Resistance 2.6 ratio 2.2-3.5 [facility] Work Phone: Comment on above: The APCR result may be falsely increased (masking anabnormal, low APCR result) in patients on direct Xainhibitor (e.g., rivaroxaban, apixaban, edoxaban) or adirect thrombin inhibitor (e.g., dabigatran) anticoagulanttherapy due to assay interference by these drugs.Performed at: [facility] [email or web address] [id number] Director: Wendy Rosado MD, Phone: [phone] Estimated Creatinine Clearance Calc 130.26 ml/min [facility] Work Phone: Estimated GFR (MDRD) Amer 140 mL/min >60 [facility] Work Phone: Comment on above: GFR Calc Estimated GFR (MDRD) Non-Af Amer 115 mL/min >60 [facility] Work Phone: Comment on above: Non- GFR Calc Troponin I High Sensitivity < 3 pg/mL 3.0-78.0 [facility] Work Phone: Comment on above: Please Note: [place] t Units and Gender Specific Reference Ranges. For more information see Policy Stat Procedure Wilson High Sensitivity Troponin (TNIH) and attachments. Platelet poor plasma antithr ombin actual/normal ratio by chromogenic method (relativeon 08-14-2021 Antithrombin actual/normal Chromogenic method (PPP) [Rel catalytic activity/Vol] 85 % 75-135 [facility] Work Phone: Comment on above: Direct Xa inhibitor anticoagulants such as rivaroxaban,apixaban and edoxaban will lead to spuriously elevatedantithrombin activity levels possibly masking a deficiency.Performed at: [facility] [address] [id number] Director: Wendy Rosado MD, Phone: [phone] at: [facility] [employer] [address] [id number] Director: Manuel Mosqueda PhD, Phone: [phone] at: [facility] [id number] [place], [place] [id number] Director: Jean-Pierre Putnam [facility], Phone: [phone] Platelet poor plasma protein S actual/normal ratio (relative time)on 08-14-2021 Protein S actual/normal Coag (PPP) [Relative time] 104 % 63-140 [facility] Work Phone: Comment on above: Protein S activity m ay be falsely increased (masking anabnormal, low result) in patients receiving direct Xainhibitor (e.g., rivaroxaban, apixaban, edoxaban) or adirect thrombin inhibitor (e.g., dabigatran) anticoagulanttreatment due to assay interference by these drugs. Platelets bldon 08-14-2021 Platelets (Bld) [#/Vol] 129 10*3/uL 150-450 [facility] Work Phone: Protein C antigen assayon Protein C Ag actual/normal IA (PPP) [Relative mass conc] 42 % 60-150 [facility] Work Phone: Comment on above: A deficiency [...] telet poor plasma by coagulation assay (units/volume)on 08-14-2021 Protein S Coag Qn (PPP) 98 % 60-150 [facility] Work Phone: Comment on above: This test was develo ped and its performance characteristicsdetermined by [facility]. It has not been cleared orapproved by the Food and Drug Administration. Protein S, freeon 08-14-2021 Protein S Free Ag IA Qn (PPP) 121 % 61-136 [facility] Work Phone: Serum cardiolipin IgG antibo dy assay by immunoassay (units/volume)on 08-14-2021 Cardiolipin IgG IA Qn (S) < 9 GPL U/mL 0-14 [facility] Work Phone: Comment on above: Negative: <15 Indete rminate: 15 - 20 Low-Med Positive: >20 - 80 High Positive: >80 Serum or plasma calcium betty urement (mass/volume)on 08-14-2021 Calcium [Mass/Vol] 8.8 mg/dL 8.5-10.1 [facility] Work Phone: Serum or plasma carcinoembry onic antigen measurement (mass/volume)on 08-14-2021 Carcinoembryonic Ag [Mass/Vol] 6.5 ng/mL 0.0-4.7 [facility] Work Phone: Comment on above: Nonsmokers <3.9 Smok ers <5.6[facility] Electrochemiluminescence Immunoassay(ECLIA)Values obtained with different assay methods or kitscannot be used interchangeably. Results cannot beinterpreted as absolute evidence of the presence orabsence of malignant disease. Serum or plasma cardiolipin IgA antibody assay (units/volume)on 08-14-2021 Cardiolipin IgA Qn < 9 APL U/mL 0-11 [facility] Work Phone: Comment on above: Negative: <12 Indete rminate: 12 - 20 Low-Med Positive: >20 - 80 High Positive: >80 Serum or plasma creatinine m easurement (mass/volume)on 08-14-2021 Creatinine [Mass/Vol] 0.79 mg/dL 0.70-1.30 [facility] Work Phone: Comment on above: The validity of the calculated GFR & GFRAA in patients over 70 years has not been determined. Clinical correlation is essential. Serum or plasma urea nitroge n measurement (mass/volume)on 08-14-2021 Urea nitrogen [Mass/Vol] 2 mg/dL 7-18 [facility] Work Phone: Thin prep Papanicolaou smear with manual screeningon 08-14-2021 Thin prep Papanicolaou smear with manual screening 48.6 sec 0.0-47.6 [facility] Work Phone: Thin prep Papanicolaou smear with manual screening 1.08 Ratio 0.00-1.34 [facility] Work Phone: Thin prep Papanicolaou smear with manual screening 109.9 sec 0.0-51.9 [facility] Work Phone: Thin prep Papanicolaou smear with manual screening 60.2 sec 0.0-48.9 [facility] Work Phone: Thin prep Papanicolaou smear with manual screening Comment: . [facility] Work Phone: Comment on above: No lupus [...] Papanicolaou smear with manual screening 5 5-15 [facility] Work Phone: [phone] Thrombin time in platelet po or plasmaon 08-14-2021 Thrombin time Coag (PPP) [Time] 17.8 sec 0.0-23.0 [facility] Work Phone: [phone] Absolute lymphocyte counton 07-26-2021 Lymphocytes Auto (Unsp spec) [#/Vol] 2.29 10*3/uL 0.83-4.51 [facility] Work Phone: Basophil percentageon 2021 Ammonia (P) [Moles/Vol] 21.0 umol/L 11-32 [facility] Work Phone: Basophil percentage < 0.2 AI 0.0-0.9 [facility] Work Phone: Basophils/100 WBC (Bld) 0.6 % 0-1 [facility] Work Phone: [phone] Bilirubin [Mass/Vol] 0.70 mg/dL 0.20-1.00 [facility] Work Phone: [phone] Comment on above: For patients on eltr ombopag therapy, use of Dimension Wilson TBIL is not recommended. Chloride [Moles/Vol] 106 mmol/L 98-107 [facility] Work Phone: Eosinophils/100 WBC (Bld) 1.8 % 0-5 [facility] Work Phone: Glucose [Mass/Vol] 92 mg/dL 74-106 [facility] Work Phone: Neutrophils (Bld) [#/Vol] 8.9 10*3/uL 2.0-7.7 [facility] Work Phone: Neutrophils/100 WBC (Bld) 72.8 % 47-70 [facility] Work Phone: Potassium [Moles/Vol] 3.7 mmol/L 3.5-5.1 [facility] Work Phone: Protein [Mass/Vol] 7.7 g/dL 6.4-8.2 [facility] Work Phone: Sodium [Moles/Vol] 139 mmol/L 136-145 [facility] Work Phone: WBC (Bld) [#/Vol] 12.2 10*3/uL 4.4-11.0 [facility] Work Phone: Blood erythrocytes count (nu mber/volume)on 07-26-2021 RBC (Bld) [#/Vol] 4.68 10*6/uL 4.6-6.2 [facility] Work Phone: Blood hemoglobin measurement (mass/volume)on 07-26-2021 Hemoglobin (Bld) [Mass/Vol] 15.2 g/dL 13.0-16.5 [facility] Work Phone: Blood lymphocytes/100 leukoc yteson 07-26-2021 Lymphocytes/100 WBC (Bld) 18.8 % 19-41 [facility] Work Phone: Blood monocytes/100 leukocyt eson 07-26-2021 Monocytes/100 WBC (Bld) 5.8 % 0-10 [facility] Work Phone: Blood platelet mean volumeon 07-26-2021 Platelet mean volume (Bld) [Entitic vol] 10.8 fL 6.2-12.0 [facility] Work Phone: [phone] Determination of erythrocyte mean corpuscular volume (MCV)on 07-26-2021 MCV (RBC) [Entitic vol] 98.1 fL 80-94 [facility] Work Phone: [phone] Erythrocyte sedimentation ra prasanth 07-26-2021 ESR (Bld) [Velocity] 13 mm/h 0-20 [facility] Work Phone: [phone] HIV 1 and HIV-2 antibody ass ay with HIV-1 p24 antigen detectionon 07-26-2021 HIV 1+2 Ab+HIV1 p24 Ag IA Ql Non-Reactive Nonreactive [facility] Work Phone: [phone] Hematocrit Auto (Bld) [Volum e fraction]on 07-26-2021 Hematocrit (Bld) [Volume fraction] 45.9 % 40-54 [facility] Work Phone: [phone] INR in Blood by Coagulation assayon 07-26-2021 INR Coag (Bld) [Relative time] 1.1 {INR} [facility] Work Phone: [phone] Laboratory - Chemistry and C hemistry - challengeon 07-26-2021 ALP [Catalytic activity/Vol] 119 U/L 45-117 [facility] Work Phone: ALT [Catalytic activity/Vol] 15 U/L 16-61 [facility] Work Phone: [phone] CO2 [Moles/Vol] 29.0 mmol/L 21.0-32.0 [facility] Work Phone: Globulin (S) [Mass/Vol] 4.4 g/dL 2.2-4.2 [facility] Work Phone: Urea nitrogen/Creatinine [Mass ratio] 9.8 mg/mg 10-20 [facility] Work Phone: Laboratory - Coagulationon 0 07-26-2021 PT Coag (PPP) [Time] 13.7 s 11.7-14.9 [facility] Work Phone: Laboratory - Hematology and Cell countson 07-26-2021 Erythrocyte distribution width (RBC) [Entitic vol] 50.4 fL 35.1-43.9 [facility] Work Phone: Erythrocyte distribution width (RBC) [Ratio] 14.1 % 11.6-14.6 [facility] Work Phone: Immature granulocytes/100 WBC (Bld) 0.200 % 0.0-0.9 [facility] Work Phone: Comment on above: IG% - Immature Granu locytes (promyelocytes, myelocytes and metamyelocytes) > 1% indicates that a LEFT SHIFT is Present. MCH (RBC) [Entitic mass] 32.5 pg 27.0-32.0 [facility] Work Phone: Nucleated RBC/100 WBC (Bld) [Ratio] 0 % 0-5 [facility] Work Phone: MCHC Auto (RBC) [Mass/Vol]on 07-26-2021 MCHC (RBC) [Mass/Vol] 33.1 g/dL 32-36 [facility] Work Phone: No Panel Informationon 07-26 Centromere B Antibody 0.2 AI 0.0-0.9 [facility] Work Phone: Ceruloplasmin See comment [facility] Work Phone: Comment on above: TEST RESULT LIMITSCe ruloplasmin 29.5 mg/dL 16.0-31.0 TESTING PERFORMED AT [facility]. ORIGINAL REPORT ON FILE IN LAB CONTAINS ADDITIONAL TEST SITE INFORMATION. Estimated GFR (MDRD) Amer 156 mL/min >60 [facility] Work Phone: Comment on above: GFR Calc Estimated GFR (MDRD) Non-Af Amer 129 mL/min >60 [facility] Work Phone: Comment on above: Non- GFR Calc Haptoglobin See comment [facility] Work Phone: Comment on above: TEST RESULT LIMITSHa ptoglobin 122 mg/dL 23-355 __ [facility] ORIGINAL REPORT ON FILE IN LAB CONTAINS ADDITIONAL TEST SITE INFORMATION. Hepatitis A IgM Antibody See comment [facility] Work Phone: Comment on above: TEST RESULT LIMITSAc [place] HepatitisHep A Ab, IgM Negative NegativeHBsAg Screen Negative NegativeHep B Core Ab, IgM Negative NegativeHCV Ab 0.1 s/co ratio 0.0-0.9Interpretation: NegativeNot infected with HCV, unless recent infection is suspected or other evidence exists to indicate HCV infection. TESTING PERFORMED AT [facility]. ORIGINAL REPORT ON FILE IN LAB CONTAINS ADDITIONAL TEST SITE INFORMATION. Hepatitis B Core IgM Antibody Not Reportable [facility] Work Phone: Hepatitis C Antibody Non-Reactive Nonreactive [facility] Work Phone: Comment on above: Non Reactive: < 0.8 Equivocal: >/= 0.8 to < 1.0 Reactive: >/= 1.0The CDC recommends that a reactive/equivocal HCV antibody result be followed up by the HCV Nucleic Acid Amplificationtest (036297) Hepatitis C Antibody (EIA) Not Reportable [facility] Work Phone: Hepatitis C Genotype See comment [facility] Work Phone: Comment on above: TEST RESULT LIMITSHC V RT-PCR, Quant (Non-Graph)Hepatitis C Quantitation HCV Not Detected IU/mLTest Information: The quantitative range of this assay is 15 IU/mL to 100 million IU/mL. __ TESTING PERFORMED AT [facility]. ORIGINAL REPORT ON FILE IN LAB CONTAINS ADDITIONAL TEST SITE INFORMATION. CHARRER Antibody 0.3 AI 0.0-0.9 [facility] Work Phone: Platelets bldon 07-26-2021 Platelets (Bld) [#/Vol] 234 10*3/uL 150-450 [facility] Work Phone: Serum DNA double strand anti body assay (units/volume)on 07-26-2021 DNA double strand Ab Qn (S) 3 [IU]/mL 0-9 [facility] Work Phone: Comment on above: Negative <5 Equivoca l 5 - 9 Positive >9 Serum Trisha-1 antibody assay (u nits/volume)on 07-26-2021 Trisha-1 extractable nuclear Ab Qn (S) <0.2 AI 0.0-0.9 [facility] Work Phone: Serum Scl-70 extractable nuc lear antibody assay (units/volume)on 07-26-2021 SCL-70 extractable nuclear Ab Qn (S) <0.2 AI 0.0-0.9 [facility] Work Phone: Serum Snider extractable nucl ear antibody detectionon 07-26-2021 Snider extractable nuclear Ab Ql (S) <0.2 AI 0.0-0.9 [facility] Work Phone: Serum classic neutrophil cyt oplasmic antibody assay (units/volume)on 07-26-2021 Neutrophil cytoplasmic Ab.classic Qn (S) See comment [facility] Work Phone: Comment on above: TEST RESULT [...] up testing of positive sera with both MS-3 and MPO-ANCA enzyme immunoassays. As many as 5% serum samples are positive only by EIA.Ref. AM J Clin Pathol 1999;111:507-513.Atypical pANCA <1:20 titer Neg:<1:20The atypical pANCA pattern has been observed in a significant percentage of patients with ulcerative colitis, primary sclerosing cholangitis and autoimmune hepatitis. TESTING PERFORMED AT [facility]. ORIGINAL REPORT ON FILE IN LAB CONTAINS ADDITIONAL TEST SITE INFORMATION. Serum mitochondria antibody detectionon 07-26-2021 Mitochondria Ab Ql (S) <20.0 Units 0.0-20.0 [facility] Work Phone: Comment on above: Negative 0.0 - 20.0 Equivocal 20.1 - 24.9 Positive >24.9Mitochondrial (M2) Antibodies are found in 90-96% ofpatients with primary biliary cirrhosis.Performed at: [facility] [email or web address] [id number] Director: Manuel Mosqueda PhD, Phone: [phone] Serum or plasma C reactive p rotein measurement (mass/volume)on 07-26-2021 CRP [Mass/Vol] 6.20 mg/L 0.0-3.0 [facility] Work Phone: Comment on above: C-Reactive Protein ( CRP) provides useful information for thediagnosis, therapy and monitoring of inflammatory processesand associated diseases. For the evaluation of Relative Riskfor Cardiovascular Disease, a High Sensitivity CRP (HSCRP)should be ordered. Serum or plasma actin IgG an tibody assay (units/volume)on 07-26-2021 Actin IgG Qn See comment [facility] Work Phone: Comment on above: TEST RESULT LIMITSAc tin (Smooth Muscle) AntibodyActin (Smooth Muscle)Antibody 6 Units 0-19 Negative 0 - 19 Weak positive 20 - 30 Moderate to strong positive >30 Actin Antibodies are found in 52-85% of patients with autoimmune hepatitis or chronic active hepatitis and in 22% of patients with primary biliary cirrhosis. TESTING PERFORMED AT [facility]. ORIGINAL REPORT ON FILE IN LAB CONTAINS ADDITIONAL TEST SITE INFORMATION. Serum or plasma albumin betty urement (mass/volume)on 07-26-2021 Albumin [Mass/Vol] 3.3 g/dL 3.2-5.0 [facility] Work Phone: Serum or plasma albumin/glob ulin mass ratioon 07-26-2021 Albumin/Globulin [Mass ratio] 0.8 {ratio} 0.9-2.4 [facility] Work Phone: Serum or plasma oykas-9-pzdf protein tumor marker measurement (units/volume)on 07-26-2021 AFP.tumor marker Qn See comment [facility] Work Phone: Comment on above: TEST RESULT LIMITSAF P, Serum, Tumor Marker 2.9 ng/mL 0.0-6.9[facility] Electrochemiluminescence Immunoassay (ECLIA)Values obtained with different assay methods or kits cannot be used interchangeably. Results cannot be interpreted as absolute evidence of the presence or absence of malignant disease.This test is not interpretable in females. ____ TESTING PERFORMED AT [facility]. ORIGINAL REPORT ON FILE IN LAB CONTAINS ADDITIONAL TEST SITE INFORMATION. Serum or plasma angiotensin converting enzyme measurement (enzymatic activity/volume)on 07-26-2021 Angiotensin converting enzyme [Catalytic activity/Vol] See comment [facility] Work Phone: Comment on above: TEST RESULT LIMITSCe ruloplasmin 29.5 mg/dL 16.0-31.0 [facility] ORIGINAL REPORT ON FILE IN LAB CONTAINS ADDITIONAL TEST SITE INFORMATION. Serum or plasma calcium betty urement (mass/volume)on 07-26-2021 Calcium [Mass/Vol] 8.9 mg/dL 8.5-10.1 [facility] Work Phone: Serum or plasma creatinine m easurement (mass/volume)on 07-26-2021 Creatinine [Mass/Vol] 0.71 mg/dL 0.70-1.30 [facility] Work Phone: Comment on above: The validity of the calculated GFR & GFRAA in patients over 70 years has not been determined. Clinical correlation is essential. Serum or plasma ferritin jose alejandro surement (mass/volume)on 07-26-2021 Ferritin [Mass/Vol] 52 ng/mL 26-388 [facility] Work Phone: Serum or plasma hepatitis B virus surface antigen detection by immunoassayon 07-26-2021 HBV surface Ag IA Ql Not Reportable [facility] Work Phone: Serum or plasma hepatitis C virus RNA measurement by probe and target amplification mon 07-26-2021 HCV RNA ULI+probe Qn See comment [facility] Work Phone: Comment on above: TEST RESULT LIMITSHe patitis C Genotype Test not performed. We are unable to determine the genotype and/or phenotype of this sample due to insufficient viral copy number. Samples with low viral loads will often fail PCR amplification. TESTING PERFORMED AT [facility]. ORIGINAL REPORT ON FILE IN LAB CONTAINS ADDITIONAL TEST SITE INFORMATION. Serum or plasma urea nitroge n measurement (mass/volume)on 07-26-2021 Urea nitrogen [Mass/Vol] 7 mg/dL 7-18 [facility] Work Phone: Serum perinuclear neutrophil cytoplasmic antibody titer by immunofluorescenceon 07-26-2021 Neutrophil cytoplasmic Ab.perinuclear IF (S) [Titer] Not Reportable [facility] Work Phone: Thin prep Papanicolaou smear with manual screeningon 07-26-2021 Thin prep Papanicolaou smear with manual screening 23 U/L 15-37 [facility] Work Phone: Thin prep Papanicolaou smear with manual screening 4 5-15 [facility] Work Phone: Thin prep Papanicolaou smear with manual screening 144 U/L 87-241 [facility] Work Phone: Thin prep Papanicolaou smear with manual screening See comment [facility] Work Phone: Comment on above: TEST RESULT LIMITSCo pper, Serum or Plasma A, 116 ug/dL 69-132 Detection Limit = 5 TESTING PERFORMED AT [facility]. ORIGINAL REPORT ON FILE IN LAB CONTAINS ADDITIONAL TEST SITE INFORMATION. Whole blood hemoglobin A1c/t otal hemoglobin ratio (mass fraction)on 07-26-2021 HbA1c (Bld) [Mass fraction] 4.6 % 3.8-5.6 [facility] Work Phone: Comment on above: Normal < 5.7 % Predi abetic 5.7 - 6.4 % Diabetic >or= 6.5 % Please note range changes. Basophil percentageon 2021 Basophil percentage 4.2 mg/dL 2.5-4.9 [facility] Work Phone: [phone] Laboratory - Chemistry and C hemistry - challengeon 05-16-2021 Magnesium [Mass/Vol] 1.3 mg/dL 1.6-2.6 [facility] Work Phone: Absolute lymphocyte counton 05-15-2021 Lymphocytes Auto (Unsp spec) [#/Vol] 2.57 10*3/uL 0.83-4.51 [facility] Work Phone: Basophil percentageon 2021 Basophils/100 WBC (Bld) 0.5 % 0-1 [facility] Work Phone: Bilirubin [Mass/Vol] 0.70 mg/dL 0.20-1.00 [facility] Work Phone: [phone] Comment on above: For patients on eltr ombopag therapy, use of Dimension Wilson TBIL is not recommended. Chloride [Moles/Vol] 102 mmol/L 98-107 [facility] Work Phone: Eosinophils/100 WBC (Bld) 1.0 % 0-5 [facility] Work Phone: Glucose [Mass/Vol] 97 mg/dL 74-106 [facility] Work Phone: Neutrophils (Bld) [#/Vol] 7.8 10*3/uL 2.0-7.7 [facility] Work Phone: Neutrophils/100 WBC (Bld) 67.1 % 47-70 [facility] Work Phone: Potassium [Moles/Vol] 3.1 mmol/L 3.5-5.1 [facility] Work Phone: Protein [Mass/Vol] 7.8 g/dL 6.4-8.2 [facility] Work Phone: Sodium [Moles/Vol] 139 mmol/L 136-145 [facility] Work Phone: WBC (Bld) [#/Vol] 11.6 10*3/uL 4.4-11.0 [facility] Work Phone: [phone] Blood erythrocytes count (nu mber/volume)on 05-15-2021 RBC (Bld) [#/Vol] 4.02 10*6/uL 4.6-6.2 [facility] Work Phone: [phone] Blood hemoglobin measurement (mass/volume)on 05-15-2021 Hemoglobin (Bld) [Mass/Vol] 15.3 g/dL 13.0-16.5 [facility] Work Phone: Blood lymphocytes/100 leukoc yteson 05-15-2021 Lymphocytes/100 WBC (Bld) 22.3 % 19-41 [facility] Work Phone: Blood monocytes/100 leukocyt eson 05-15-2021 Monocytes/100 WBC (Bld) 8.6 % 0-10 [facility] Work Phone: [phone] Blood platelet mean volumeon 05-15-2021 Platelet mean volume (Bld) [Entitic vol] 10.1 fL 6.2-12.0 [facility] Work Phone: [phone] Determination of erythrocyte mean corpuscular volume (MCV)on 05-15-2021 MCV (RBC) [Entitic vol] 106.7 fL 80-94 [facility] Work Phone: Hematocrit Auto (Bld) [Volum e fraction]on 05-15-2021 Hematocrit (Bld) [Volume fraction] 42.9 % 40-54 [facility] Work Phone: [phone] INR in Blood by Coagulation assayon 05-15-2021 INR Coag (Bld) [Relative time] 1.2 {INR} [facility] Work Phone: [phone] Laboratory - Chemistry and C hemistry - challengeon 05-15-2021 ALP [Catalytic activity/Vol] 256 U/L 45-117 [facility] Work Phone: ALT [Catalytic activity/Vol] 39 U/L 16-61 [facility] Work Phone: Amylase [Catalytic activity/Vol] 926 U/L 15-85 [facility] Work Phone: [phone] CO2 [Moles/Vol] 25.0 mmol/L 21.0-32.0 [facility] Work Phone: [phone] Globulin (S) [Mass/Vol] 4.8 g/dL 2.2-4.2 [facility] Work Phone: Lipase [Catalytic activity/Vol] 62 U/L 73-393 [facility] Work Phone: [phone] Urea nitrogen/Creatinine [Mass ratio] 5.0 mg/mg 10-20 [facility] Work Phone: [phone] Laboratory - Coagulationon 0 05-15-2021 PT Coag (PPP) [Time] 14.2 s 11.7-14.9 [facility] Work Phone: Laboratory - Drug toxicology on 05-15-2021 Amphetamines Ql (U) Negative <1000 ng/mL [facility] Work Phone: Benzodiazepines Ql (U) Negative < 200 ng/mL [facility] Work Phone: [phone] Cannabinoids Screen Ql (U) Negative < 50 ng/mL [facility] Work Phone: [phone] Cocaine Ql (U) Negative < 300 ng/mL [facility] Work Phone: Opiates Ql (U) Negative < 300 ng/mL [facility] Work Phone: Laboratory - Hematology and Cell countson 05-15-2021 Erythrocyte distribution width (RBC) [Entitic vol] 51.0 fL 35.1-43.9 [facility] Work Phone: [phone] Erythrocyte distribution width (RBC) [Ratio] 12.9 % 11.6-14.6 [facility] Work Phone: [phone] Immature granulocytes/100 WBC (Bld) 0.500 % 0.0-0.9 [facility] Work Phone: Comment on above: IG% - Immature Granu locytes (promyelocytes, myelocytes and metamyelocytes) > 1% indicates that a LEFT SHIFT is Present. MCH (RBC) [Entitic mass] 38.1 pg 27.0-32.0 [facility] Work Phone: Nucleated RBC/100 WBC (Bld) [Ratio] 0 % 0-5 [facility] Work Phone: MCHC Auto (RBC) [Mass/Vol]on 05-15-2021 MCHC (RBC) [Mass/Vol] 35.7 g/dL 32-36 [facility] Work Phone: No Panel Informationon 05-15 MDMA (Ecstasy) Screen Negative < 500 ng/mL [facility] Work Phone: Urine Barbiturates Screen Positive < 200 ng/mL [facility] Work Phone: Urine Drug Screen Comment [facility] Work Phone: Comment on above: CONFIRMATORY TESTING [...] Methadone Screen Negative < 300 ng/mL [facility] Work Phone: Estimated Creatinine Clearance Calc 171.19 ml/min [facility] Work Phone: Estimated GFR (MDRD) Amer 192 mL/min >60 [facility] Work Phone: Comment on above: GFR Calc Estimated GFR (MDRD) Non-Af Amer 158 mL/min >60 [facility] Work Phone: Comment on above: Non- GFR Calc Ethyl Alcohol Level 120.0 mg/dL [facility] Work Phone: Comment on above: The serum:whole bloo d ethanol ratio is approximately 1.14and varies slightly with hematocrit. Medical Alcohol reference interval and critical value innon-tolerant individuals; 50 - 100 Impairment 100 Intoxication 100 - 250 Severe Poisoning 250 - 400 Deep/possible fatal coma Platelets bldon 05-15-2021 Platelets (Bld) [#/Vol] 246 10*3/uL 150-450 [facility] Work Phone: Serum or plasma albumin betty urement (mass/volume)on 05-15-2021 Albumin [Mass/Vol] 3.0 g/dL 3.2-5.0 [facility] Work Phone: [phone] Serum or plasma albumin/glob ulin mass ratioon 05-15-2021 Albumin/Globulin [Mass ratio] 0.6 {ratio} 0.9-2.4 [facility] Work Phone: Serum or plasma calcium betty urement (mass/volume)on 05-15-2021 Calcium [Mass/Vol] 9.0 mg/dL 8.5-10.1 [facility] Work Phone: Serum or plasma creatinine m easurement (mass/volume)on 05-15-2021 Creatinine [Mass/Vol] 0.60 mg/dL 0.70-1.30 [facility] Work Phone: Comment on above: The validity of the calculated GFR & GFRAA in patients over 70 years has not been determined. Clinical correlation is essential. Serum or plasma urea nitroge n measurement (mass/volume)on 05-15-2021 Urea nitrogen [Mass/Vol] 3 mg/dL 7-18 [facility] Work Phone: Thin prep Papanicolaou smear with manual screeningon 05-15-2021 Thin prep Papanicolaou smear with manual screening 103 U/L 15-37 [facility] Work Phone: Thin prep Papanicolaou smear with manual screening 12 5-15 [facility] Work Phone: Urine phencyclidine (PCP) de tectionon 05-15-2021 Phencyclidine Ql (U) Negative < 25 ng/mL [facility] Work Phone: Basophil percentageon 2021 Bilirubin [Mass/Vol] 1.00 mg/dL 0.20-1.00 [facility] Work Phone: Comment on above: For patients on eltr ombopag therapy, use of Dimension Wilson TBIL is not recommended. Chloride [Moles/Vol] 101 mmol/L 98-107 [facility] Work Phone: Glucose [Mass/Vol] 92 mg/dL 74-106 [facility] Work Phone: Potassium [Moles/Vol] 3.9 mmol/L 3.5-5.1 [facility] Work Phone: Protein [Mass/Vol] 6.3 g/dL 6.4-8.2 [facility] Work Phone: Sodium [Moles/Vol] 134 mmol/L 136-145 [facility] Work Phone: Laboratory - Chemistry and C hemistry - challengeon 04-29-2021 ALP [Catalytic activity/Vol] 195 U/L 45-117 [facility] Work Phone: ALT [Catalytic activity/Vol] 43 U/L 16-61 [facility] Work Phone: CO2 [Moles/Vol] 29.0 mmol/L 21.0-32.0 [facility] Work Phone: Globulin (S) [Mass/Vol] 4.1 g/dL 2.2-4.2 [facility] Work Phone: Urea nitrogen/Creatinine [Mass ratio] 15.0 mg/mg 10-20 [facility] Work Phone: No Panel Informationon 04-29 Estimated Creatinine Clearance Calc 189.46 ml/min [facility] Work Phone: Estimated GFR (MDRD) Amer 219 mL/min >60 [facility] Work Phone: Comment on above: GFR Calc Estimated GFR (MDRD) Non-Af Amer 181 mL/min >60 [facility] Work Phone: Comment on above: Non- GFR Calc Serum or plasma albumin betty urement (mass/volume)on 04-29-2021 Albumin [Mass/Vol] 2.2 g/dL 3.2-5.0 [facility] Work Phone: Serum or plasma albumin/glob ulin mass ratioon 04-29-2021 Albumin/Globulin [Mass ratio] 0.5 {ratio} 0.9-2.4 [facility] Work Phone: Serum or plasma calcium betty urement (mass/volume)on 04-29-2021 Calcium [Mass/Vol] 8.2 mg/dL 8.5-10.1 [facility] Work Phone: Serum or plasma creatinine m easurement (mass/volume)on 04-29-2021 Creatinine [Mass/Vol] 0.53 mg/dL 0.70-1.30 [facility] Work Phone: Comment on above: The validity of the calculated GFR & GFRAA in patients over 70 years has not been determined. Clinical correlation is essential. Serum or plasma urea nitroge n measurement (mass/volume)on 04-29-2021 Urea nitrogen [Mass/Vol] 8 mg/dL 7-18 [facility] Work Phone: Thin prep Papanicolaou smear with manual screeningon 04-29-2021 Thin prep Papanicolaou smear with manual screening 127 U/L 15-37 [facility] Work Phone: Thin prep Papanicolaou smear with manual screening 4 5-15 [facility] Work Phone: Absolute lymphocyte counton 04-26-2021 Lymphocytes Auto (Unsp spec) [#/Vol] 1.28 10*3/uL 0.83-4.51 [facility] Work Phone: Basophil percentageon 2021 Basophils/100 WBC (Bld) 0.3 % 0-1 [facility] Work Phone: Eosinophils/100 WBC (Bld) 0.0 % 0-5 [facility] Work Phone: [phone] Neutrophils (Bld) [#/Vol] 9.7 10*3/uL 2.0-7.7 [facility] Work Phone: [phone] Neutrophils/100 WBC (Bld) 80.7 % 47-70 [facility] Work Phone: [phone] WBC (Bld) [#/Vol] 12.1 10*3/uL 4.4-11.0 [facility] Work Phone: [phone] Basophil percentage 0-5 SEEN /hpf 0-5 [facility] Work Phone: [phone] Bilirubin Test strip Ql (U)o n 04-26-2021 Bilirubin Ql (U) 1 mg/dL Negative [facility] Work Phone: Comment on above: COLOR OF URINE MAY A FFECT DIPSTICK RESULTS. Blood erythrocytes count (nu mber/volume)on 04-26-2021 RBC (Bld) [#/Vol] 4.20 10*6/uL 4.6-6.2 [facility] Work Phone: [phone] Blood hemoglobin measurement (mass/volume)on 04-26-2021 Hemoglobin (Bld) [Mass/Vol] 16.5 g/dL 13.0-16.5 [facility] Work Phone: Blood lymphocytes/100 leukoc yteson 04-26-2021 Lymphocytes/100 WBC (Bld) 10.6 % 19-41 [facility] Work Phone: Blood monocytes/100 leukocyt eson 04-26-2021 Monocytes/100 WBC (Bld) 8.0 % 0-10 [facility] Work Phone: [phone] Blood platelet mean volumeon 04-26-2021 Platelet mean volume (Bld) [Entitic vol] 11.3 fL 6.2-12.0 [facility] Work Phone: [phone] Determination of erythrocyte mean corpuscular volume (MCV)on 04-26-2021 MCV (RBC) [Entitic vol] 109.0 fL 80-94 [facility] Work Phone: Hematocrit Auto (Bld) [Volum e fraction]on 04-26-2021 Hematocrit (Bld) [Volume fraction] 45.8 % 40-54 [facility] Work Phone: Ketones Test strip Ql (U)on 04-26-2021 Ketones Ql (U) Negative Negative [facility] Work Phone: Laboratory - Chemistry and C hemistry - challengeon 04-26-2021 Lipase [Catalytic activity/Vol] 179 U/L 73-393 [facility] Work Phone: Laboratory - Drug toxicology on 04-26-2021 Amphetamines Ql (U) Negative <1000 ng/mL [facility] Work Phone: Benzodiazepines Ql (U) Negative < 200 ng/mL [facility] Work Phone: Cannabinoids Screen Ql (U) Negative < 50 ng/mL [facility] Work Phone: Cocaine Ql (U) Negative < 300 ng/mL [facility] Work Phone: Opiates Ql (U) Negative < 300 ng/mL [facility] Work Phone: Laboratory - Hematology and Cell countson 04-26-2021 Erythrocyte distribution width (RBC) [Entitic vol] 51.6 fL 35.1-43.9 [facility] Work Phone: Erythrocyte distribution width (RBC) [Ratio] 12.9 % 11.6-14.6 [facility] Work Phone: Immature granulocytes/100 WBC (Bld) 0.400 % 0.0-0.9 [facility] Work Phone: Comment on above: IG% - Immature Granu locytes (promyelocytes, myelocytes and metamyelocytes) > 1% indicates that a LEFT SHIFT is Present. MCH (RBC) [Entitic mass] 39.3 pg 27.0-32.0 [facility] Work Phone: Nucleated RBC/100 WBC (Bld) [Ratio] 0 % 0-5 [facility] Work Phone: MCHC Auto (RBC) [Mass/Vol]on 04-26-2021 MCHC (RBC) [Mass/Vol] 36.0 g/dL 32-36 [facility] Work Phone: Mucus LM Ql (Urine sed)on Mucus Ql (Urine sed) 1+ /hpf [facility] Work Phone: Nitrite Test strip Ql (U)on 04-26-2021 Nitrite Ql (U) Negative Negative [facility] Work Phone: No Panel Informationon 04-26 Ethyl Alcohol Level 72.0 mg/dL [facility] Work Phone: Comment on above: The serum:whole bloo d ethanol ratio is approximately 1.14and varies slightly with hematocrit. Medical Alcohol reference interval and critical value innon-tolerant individuals; 50 - 100 Impairment 100 Intoxication 100 - 250 Severe Poisoning 250 - 400 Deep/possible fatal coma Urine Barbiturates Screen Negative < 200 ng/mL [facility] Work Phone: Urine Drug Screen Comment [facility] Work Phone: Comment on above: CONFIRMATORY TESTING [...] Methadone Screen Negative < 300 ng/mL [facility] Work Phone: Urine Methamphetamine-MDMA Screen Negative < 500 ng/mL [facility] Work Phone: Platelets bldon 04-26-2021 Platelets (Bld) [#/Vol] 159 10*3/uL 150-450 [facility] Work Phone: Protein Test strip Ql (U)on 04-26-2021 Protein Ql (U) 15 mg/dl Negative [facility] Work Phone: Squamous epithelial cells de tection in urine sediment by light microscopyon 04-26-2021 Epithelial cells.squamous LM Ql (Urine sed) 0-5 SEEN /hpf 0-5 [facility] Work Phone: Urine blood detectionon RBC Ql (U) 25 /ul Negative [facility] Work Phone: RBC Ql (U) 0 SEEN /hpf 0-5 [facility] Work Phone: Urine clarityon 04-26-2021 Clarity (U) Clear Clear [facility] Work Phone: Urine color determinationon 04-26-2021 Color (U) Alissa Yellow [facility] Work Phone: Urine glucose detectionon Glucose Ql (U) Normal mg/dl Normal [facility] Work Phone: Urine leukocyte esterase det ection by dipstickon 04-26-2021 Leukocyte esterase Test strip Ql (U) 25 /ul Negative [facility] Work Phone: Urine pHon 04-26-2021 pH (U) 6.5 [pH] 5.0 - 8.0 [facility] Work Phone: Urine phencyclidine (PCP) de tectionon 04-26-2021 Phencyclidine Ql (U) Negative < 25 ng/mL [facility] Work Phone: Urine sediment bacteria coun t by microscopy (number/high power field)on 04-26-2021 Bacteria LM.HPF (Urine sed) [#/Area] 0 /[HPF] None Seen [facility] Work Phone: Urine specific gravity measu rementon 04-26-2021 Specific gravity (U) [Rel density] 1.015 1.002-1.030 [facility] Work Phone: Urobilinogen Auto test strip Ql (U)on 04-26-2021 Urobilinogen Ql (U) 12 mg/dl Normal [facility] Work Phone: Absolute lymphocyte counton 04-08-2021 Lymphocytes Auto (Unsp spec) [#/Vol] 1.94 10*3/uL 0.83-4.51 [facility] Work Phone: Basophil percentageon 2021 Lactate [Moles/Vol] 2.2 mmol/L 0.4-2.0 [facility] Work Phone: Comment on above: Critical Result(s) C alled at: 18:32:15 04/08/2021 by: Gladis Almeida. Results read back by same. Basophils/100 WBC (Bld) 0.6 % 0-1 [facility] Work Phone: Bilirubin [Mass/Vol] 0.90 mg/dL 0.20-1.00 [facility] Work Phone: Comment on above: For patients on eltr ombopag therapy, use of Dimension Wilson TBIL is not recommended. Chloride [Moles/Vol] 102 mmol/L 98-107 [facility] Work Phone: Eosinophils/100 WBC (Bld) 0.7 % 0-5 [facility] Work Phone: Glucose [Mass/Vol] 102 mg/dL 74-106 [facility] Work Phone: Comment on above: Fasting Glucose resu lt from 100 to 125 mg/dL suggests IMPAIRED HOMEOSTASIS per A.D.A. criteria. Neutrophils (Bld) [#/Vol] 7.0 10*3/uL 2.0-7.7 [facility] Work Phone: Neutrophils/100 WBC (Bld) 67.4 % 47-70 [facility] Work Phone: Potassium [Moles/Vol] 3.4 mmol/L 3.5-5.1 [facility] Work Phone: Protein [Mass/Vol] 8.2 g/dL 6.4-8.2 [facility] Work Phone: Sodium [Moles/Vol] 137 mmol/L 136-145 [facility] Work Phone: WBC (Bld) [#/Vol] 10.3 10*3/uL 4.4-11.0 [facility] Work Phone: Blood erythrocytes count (nu mber/volume)on 04-08-2021 RBC (Bld) [#/Vol] 3.69 10*6/uL 4.6-6.2 [facility] Work Phone: [phone] Blood hemoglobin measurement (mass/volume)on 04-08-2021 Hemoglobin (Bld) [Mass/Vol] 15.0 g/dL 13.0-16.5 [facility] Work Phone: Blood lymphocytes/100 leukoc yteson 04-08-2021 Lymphocytes/100 WBC (Bld) 18.8 % 19-41 [facility] Work Phone: Blood monocytes/100 leukocyt eson 04-08-2021 Monocytes/100 WBC (Bld) 11.9 % 0-10 [facility] Work Phone: Blood platelet mean volumeon 04-08-2021 Platelet mean volume (Bld) [Entitic vol] 10.7 fL 6.2-12.0 [facility] Work Phone: [phone] Determination of erythrocyte mean corpuscular volume (MCV)on 04-08-2021 MCV (RBC) [Entitic vol] 110.6 fL 80-94 [facility] Work Phone: [phone] Direct bilirubinon Bilirubin.direct [Mass/Vol] 0.47 mg/dL 0.00-0.30 [facility] Work Phone: Hematocrit Auto (Bld) [Volum e fraction]on 04-08-2021 Hematocrit (Bld) [Volume fraction] 40.8 % 40-54 [facility] Work Phone: [phone] INR in Blood by Coagulation assayon 04-08-2021 INR Coag (Bld) [Relative time] 1.2 {INR} [facility] Work Phone: [phone] Laboratory - Chemistry and C hemistry - challengeon 04-08-2021 ALP [Catalytic activity/Vol] 269 U/L 45-117 [facility] Work Phone: ALT [Catalytic activity/Vol] 117 U/L 16-61 [facility] Work Phone: CO2 [Moles/Vol] 28.0 mmol/L 21.0-32.0 [facility] Work Phone: Globulin (S) [Mass/Vol] 5.2 g/dL 2.2-4.2 [facility] Work Phone: Lipase [Catalytic activity/Vol] 69 U/L 73-393 [facility] Work Phone: [phone] Urea nitrogen/Creatinine [Mass ratio] 7.7 mg/mg 10-20 [facility] Work Phone: [phone] Laboratory - Coagulationon 0 04-08-2021 PT Coag (PPP) [Time] 14.7 s 11.7-14.9 [facility] Work Phone: [phone] Laboratory - Hematology and Cell countson 04-08-2021 Erythrocyte distribution width (RBC) [Entitic vol] 53.5 fL 35.1-43.9 [facility] Work Phone: [phone] Erythrocyte distribution width (RBC) [Ratio] 13.0 % 11.6-14.6 [facility] Work Phone: [phone] Immature granulocytes/100 WBC (Bld) 0.600 % 0.0-0.9 [facility] Work Phone: [phone] Comment on above: IG% - Immature Granu locytes (promyelocytes, myelocytes and metamyelocytes) > 1% indicates that a LEFT SHIFT is Present. MCH (RBC) [Entitic mass] 40.7 pg 27.0-32.0 [facility] Work Phone: [phone] Nucleated RBC/100 WBC (Bld) [Ratio] 0 % 0-5 [facility] Work Phone: MCHC Auto (RBC) [Mass/Vol]on 04-08-2021 MCHC (RBC) [Mass/Vol] 36.8 g/dL 32-36 [facility] Work Phone: No Panel Informationon 04-08 Estimated Creatinine Clearance Calc 145.38 ml/min [facility] Work Phone: Estimated GFR (MDRD) Amer 173 mL/min >60 [facility] Work Phone: Comment on above: GFR Calc Estimated GFR (MDRD) Non-Af Amer 143 mL/min >60 [facility] Work Phone: Comment on above: Non- GFR Calc Platelets bldon 04-08-2021 Platelets (Bld) [#/Vol] 219 10*3/uL 150-450 [facility] Work Phone: Serum or plasma albumin betty urement (mass/volume)on 04-08-2021 Albumin [Mass/Vol] 3.0 g/dL 3.2-5.0 [facility] Work Phone: Serum or plasma calcium betty urement (mass/volume)on 04-08-2021 Calcium [Mass/Vol] 8.8 mg/dL 8.5-10.1 [facility] Work Phone: Serum or plasma creatinine m easurement (mass/volume)on 04-08-2021 Creatinine [Mass/Vol] 0.65 mg/dL 0.70-1.30 [facility] Work Phone: Comment on above: The validity of the calculated GFR & GFRAA in patients over 70 years has not been determined. Clinical correlation is essential. Serum or plasma urea nitroge n measurement (mass/volume)on 04-08-2021 Urea nitrogen [Mass/Vol] 5 mg/dL 7-18 [facility] Work Phone: Thin prep Papanicolaou smear with manual screeningon 04-08-2021 Thin prep Papanicolaou smear with manual screening 318 U/L 15-37 [facility] Work Phone: Thin prep Papanicolaou smear with manual screening 7 5-15 [facility] Work Phone: Royce 05-04-2020 BELIA Telephone (AGGENS1) -------- ASIMCOMPATAPAN Pat ([id number]) 1980 M UPA Date Time Provider Department 05/04/20 ELIEZER OSORIO During your visit today, we recorded the following information about you: Shyann Bejarano LPN, LPN 05/04/2020 11:10 AM Signed PATIENT CALLING C/O [...] upset Date Reviewed: 04/24/2020 Reviewed by: Cesia Pena (Aprn Cnp) - Fully Assessed Reason for Visit: Patient Question [5332] Cmt: HEMATURIA Prescriptions as of 05/04/2020 Sig: [...] Encounter Status:Closed by SHYANN BEJARANO on 05/04/20 [facility] CNOVon 04-24-2020 CN Office Visit (AGGENS 6) -------- TAPAN DAILEY ([id number]) 1980 M UPA Date Time Provider Department 04/24/20 1:00 PM CESIA PENA (LIONEL, ALEJO) AGGENS6 During your visit today, we recorded the following information about you: Pulse Respiration Blood pressure Weight 78/minute 20/minute 100/70 72.6 kg Height 1.854 m Cesia Pena APRN.CNP 04/24/2020 2:53 PM Signed Cesia Pena APRN, CNP General Surgery [address] [place] [address], [place] [phone] Patient referred by: SELF Patient presents with: Post Op: lap gaby HPI: This is a post operative visit. Tapan StewartJulisa Asim is a 39-year-old male who underwent laparoscopic [...] 2011 - PAST SURGICAL HISTORY OF Left 2007 THUMB SURGERY X3 LAST ONE IN 2006 [...] Film under the tongue once daily. - mtxhzn-rxjhqmxn-vsjuhyo (CREON) 6,000-19,000 -30,000 unit cpDR Take 1 [...] for any issues or concerns. 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 Normal [facility] ALLIED HEALTHon 04-11-2020 ALLIED HEALTH HNO ID: [id number] Author: Katy Evans (Rt) Service: Radiology Author Type: University Extension Specialist Type: Allied Health Filed: 04/11/2020 1:24 PM [...] RT Nathan April 11, 2020 1:23 PM Normal [facility] ANES POSTPROC EVALon 021 ANES POSTPROC EVAL HNO ID: [id number] Author: Carri Reid Service: Anesthesiology Author Type: Anesthesiologist Type: Anesthesia Postprocedure Evaluation Filed: 04/11/2020 5:37 PM Note Text: POST ANESTHESIA EVALUATION NOTE : 1980 Procedure Summary Date: 04/11/20 Room / Location: [facility] OR / [facility] OR Anesthesia Start: 1218 Anesthesia Stop: 1336 [...] April 11, 2020 TIME: 5:37 PM CSN: [id number] Normal [facility] ANES PRE-OPon 04-11-2020 ANES PRE-OP HNO ID: [id number] Author: Carri Reid Service: Anesthesiology Author Type: [...] April 11, 2020 TIME: 11:02 AM CSN: [id number] [facility] BRIEF OP NOTon 04-11-2020 BRIEF OP NOT HNO ID: [id number] Author: Pao Vyas Service: General Surgery Author [...] BRIEF OPERATIVE / PROCEDURE NOTE LOG ID: [id number] SURGERY/PROCEDURE DATE: 04/11/2020 INCISION/PROCEDURE START TIME: 12:38 PM INCISION CLOSE/PROCEDURE END TIME: 1:20 PM SURGEON(S)/PROCEDURALIST (S) AND DRY CLEANER(S): Surgeon(s) and Role: * Eliezer Osorio - [...] 11, 2020 TIME: 1:26 PM PAGER/CONTACT #: [facility] OPERATIVE NOon 04-11-2020 OPERATIVE NO HNO ID: [id number] Author: Eliezer Osorio Service: General Surgery Author Type: Physician Type: Operative Report Filed: 04/12/2020 10:10 AM Note Text: [facility] - Operative Report TAPAN DAILEY : 1980 AGE: 39. SEX: M PATIENT TYPE: A HOSP [facility]: [facility] LOCATION: [facility] ATTENDING PHYSICIAN: ELIEZER OSORIO CSN NUMBER: [id number] DATE OF SURGERY/PROCEDURE: 04/11/2020 INCISION/PROCEDURE START TIME: 12:38 p.m. INCISION CLOSE/PROCEDURE END TIME: 1:20 p.m. PREOPERATIVE DIAGNOSIS: Gallstone pancreatitis. POSTOPERATIVE DIAGNOSIS: Gallstone pancreatitis. SURGEON: Eliezer Osorio MD DRY CLEANER: Pao Reed MD SURGERY/PROCEDURE: Laparoscopic cholecystectomy with cholangiogram. ANESTHESIA: General LOG ID: [id number]. WOUND CLASS: 2. FIRE RISK: 2. ESTIMATED [...] closed with a 0 Vicryl in a uoanai-us-ofxcp fashion. The 5% Marcaine plain was then used for local anesthetic. The skin was closed in standard fashion with 4-0 Monocryl and Steri-Strips. All hard and soft counts were complete and accurate prior to closure of the fascia. The patient was then woken and brought to PACU in stable condition. Eliezer Osorio MD Dictated by Pao Reed MD for Eliezer Osorio MD NSA:[id number] /[id number] [facility] SURGICAL PATHOLOGYon CASE REPORT Normal [facility] Comment on above: Order Comment: Speci men Type: TISSUE SPECIMEN Result Comment: Surg ica Pathology Report Case: [id number] Authorizing Provider: Eliezer Osorio Collected: 04/11/2020 12:44 PM Ordering Location: [place] [facility] Received: 04/12/2020 06:00 AM Pathologist: Puneet Pelayo MD Specimen: GALLBLADDER Performed By: #### S ####[facility]ATORYCLIA [id number] [place] [address] FINAL DIAGNOSIS Normal [facility] Comment on above: Order Comment: Speci men Type: TISSUE SPECIMEN Result Comment: A. G allbladder, cholecystectomy Mild chronic cholecystitis. Performed By: #### S ####[facility]ORATORYCLIA [id number] [place] [address] FINAL PERFORMING LAB Normal [facility] Comment on above: Order Comment: Speci men Type: TISSUE SPECIMEN Result Comment: Diag nostic interpretation performed at [facility], [address] [place] [address] CLIA# [id number] Driver Material Handler: Rito Loera M.D. Performed By: #### S ####[facility]ORATORYCLIA [id number] [place] [address] GROSS DESCRIPTION A. GALLBLADDER. Normal [facility] Comment on above: Order Comment: Speci [...] duct. The mucosal surface is bile stained. Billet Cutter sections are submitted in formalin in 1 cassette. KVB/pkp Gross examination performed at [facility], [address] [place] [address] CLIA# [id number] Performed By: #### S ####[facility] LABORATORYCLIA [id number] [place] [address] XR CHOLANGIOGRAM INTRAOPon 0 04-11-2020 Cholesterol [Mass/Vol] Final Report DATE OF EXAM: Apr 11 2020 1:18PM [facility] 5421 - XR CHOLANGIOGRAM INTRAOP / PROCEDURE REASON: GALLSTONES Physician Interpretation INTRAOPERATIVE CHOLANGIOGRAM INDICATION: GALLSTONES TECHNIQUE: 4 images are submitted, obtained under fluoroscopic guidance. Fluoroscopy time = 0:06 (minutes:seconds). RESULT: No fixed filling defects within the opacified cystic duct, intrahepatic biliary radicles, common hepatic duct, or common bile duct. - IMPRESSION: No choledocholithiasis or other obstructing lesion in the biliary system. Inspector Dials: PSCB Transcribe Date/Time: Apr 11 2020 1:32P Dictated by : DAVID SMITH MD This examination was interpreted and the report reviewed and electronically signed by: DAVID SMITH MD on Apr 11 2020 1:33PM EST Normal [facility] CNCOon 04-05-2020 CNCO Letter Text Normal [facility] HISTORY PHYSICALon HISTORY PHYSICAL HNO ID: [id number] Author: Nella Mcgrath Service: ? Author Type: [...] with Dr. Osorio. Surgery will be at [place] Have you been in contact with someone with known coronavirus/Covid 19? Tested negative in December and January at per patient Have you had surgery or pre testing at [facility] in the past 3 years? no REVIEW OF SYSTEMS: General: Positive for: unintentional weight change and malaise Negative for: fever Neurological: Positive for: headaches Negative for: seizures and strokes Respiratory: Positive for: tobacco use. Negative for: asthma, COPD, current cough and pneumonia within 6 weeks Cardiovascular: Positive for: hypertension Negative for: chest pain, CHF, recent [place] and valve surgery GI: Positive for: abdominal [...] 04/04/20 1144 Medication Sig Last Dose Taking tjihcn-ednmqcdk-fxwfqpt (CREON) 6,000-19,000 -30,000 unit cpDR Take 1 [...] PHYSICAL EXAM: (more content not included)... Normal [facility] PT EDon 04-02-2020 PT ED HNO ID: [id number] Author: Charisse (Rn) Bo RN Service: ? Author Type: Registered Nurse Type: [...] RN In Department: [place] SURGERY OR Normal [facility] CBC W Auto Differential pane l (Bld)on 03-29-2020 Basophils (Bld) [#/Vol] 0.08 10*3/uL Normal <0.11 [facility] Comment on above: Order Comment: Speci men Type: BLOOD SPECIMEN Performed By: #### 5 7021-8 ####[facility] LABORATORYCLIA [id number] [place] [address] Basophils/100 WBC (Bld) 1.4 % Normal [facility] Comment on above: Order Comment: Speci men Type: BLOOD SPECIMEN Performed By: #### 5 7021-8 ####[facility]ORY[facility] [id number] [place] [address] Differential cell count method Nom (Bld) Auto Normal [facility] Comment on above: Order Comment: Speci men Type: BLOOD SPECIMEN Performed By: #### 5 7021-8 ####[facility]ORYCLIA [id number] [place] [address] Eosinophils (Bld) [#/Vol] 0.07 10*3/uL Normal <0.46 [facility] Comment on above: Order Comment: Speci men Type: BLOOD SPECIMEN Performed By: #### 5 7021-8 ####[facility]ORYCLIA [id number] [place] [address] Eosinophils/100 WBC (Bld) 1.3 % Normal [facility] Comment on above: Order Comment: Speci men Type: BLOOD SPECIMEN Performed By: #### 5 7021-8 ####[facility]ORYCLIA [id number] [place] [address] Erythrocyte distribution width (RBC) [Ratio] 12.8 % Normal 11.5-15.0 [facility] Comment on above: Order Comment: Speci men Type: BLOOD SPECIMEN Performed By: #### 5 7021-8 ####[facility]ATORYCLIA [id number] [place] [address] Hematocrit (Bld) [Volume fraction] 46.8 % Normal 39.0-51.0 [facility] Comment on above: Order Comment: Speci men Type: BLOOD SPECIMEN Performed By: #### 5 7021-8 ####[facility]ORATORYCLIA [id number] [place] [address] Hemoglobin (Bld) [Mass/Vol] 15.9 g/dL Normal 13.0-17.0 [facility] Comment on above: Order Comment: Speci men Type: BLOOD SPECIMEN Performed By: #### 5 7021-8 ####[facility]ORATORYCLIA [id number] [place] [address] IMMATURE GRAN % 0.4 % Normal [facility] Comment on above: Order Comment: Speci men Type: BLOOD SPECIMEN Performed By: #### 5 7021-8 ####[facility]ORATORYCLIA [id number] [place] [address] IMMATURE GRAN ABS <0.03 Normal <0.10 [facility] Comment on above: Order Comment: Speci men Type: BLOOD SPECIMEN Performed By: #### 5 7021-8 ####[facility] LABORATORYCLIA [id number] [place] [address] Lymphocytes (Bld) [#/Vol] 2.20 10*3/uL Normal 1.00-4.00 [facility] Comment on above: Order Comment: Speci men Type: BLOOD SPECIMEN Performed By: #### 5 7021-8 ####[facility]ORATORYCLIA [id number] [place] [address] Lymphocytes/100 WBC (Bld) 39.8 % Normal [facility] Comment on above: Order Comment: Speci men Type: BLOOD SPECIMEN Performed By: #### 5 7021-8 ####[facility] LABORATORYCLIA [id number] [place] [address] MCH (RBC) [Entitic mass] 34.6 pg High 26.0-34.0 [facility] Comment on above: Order Comment: Speci men Type: BLOOD SPECIMEN Performed By: #### 5 7021-8 ####[facility]ORATORYCLIA [id number] [place] [address] MCHC (RBC) [Mass/Vol] 34.0 g/dL Normal 30.5-36.0 [facility] Comment on above: Order Comment: Speci men Type: BLOOD SPECIMEN Performed By: #### 5 7021-8 ####[facility]ORATORYCLIA [id number] [place] [address] MCV (RBC) [Entitic vol] 102.0 fL High 80.0-100.0 [facility] Comment on above: Order Comment: Speci men Type: BLOOD SPECIMEN Performed By: #### 5 7021-8 ####[facility]ORATORYCLIA [id number] [place] [address] Monocytes (Bld) [#/Vol] 0.73 10*3/uL Normal <0.87 [facility] Comment on above: Order Comment: Speci men Type: BLOOD SPECIMEN Performed By: #### 5 7021-8 ####[facility]ORATORYCLIA [id number] [place] [address] Monocytes/100 WBC (Bld) 13.2 % Normal [facility] Comment on above: Order Comment: Speci men Type: BLOOD SPECIMEN Performed By: #### 5 7021-8 ####[facility]ORATORYCLIA [id number] [place] [address] Neutrophils (Bld) [#/Vol] 2.43 10*3/uL Normal 1.45-7.50 [facility] Comment on above: Order Comment: Speci men Type: BLOOD SPECIMEN Performed By: #### 5 7021-8 ####[facility] LABORATORYCLIA [id number] [place] [address] Neutrophils/100 WBC (Bld) 43.9 % Normal [facility] Comment on above: Order Comment: Speci men Type: BLOOD SPECIMEN Performed By: #### 5 7021-8 ####[facility]ORATORYCLIA [id number] [place] [address] Nucleated RBC (Bld) [#/Vol] 10*3/uL Normal <0.01 [facility] Comment on above: Order Comment: Speci men Type: BLOOD SPECIMEN Performed By: #### 5 7021-8 ####[facility]ORYCLIA [id number] [place] [address] Nucleated RBC/100 WBC (Bld) [Ratio] 0.0 /100 WBC Normal 0.0 [facility]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 phlebotomist care facilitiesnone of these conditions Persons with [...] Present on Admissionno Electronic Signatures: Kelly Hernández (RN) (Signed 02-Feb-2020 05:39) Authored: Admission Risk Screens, López Fall Screen, Vaccinations, Srinivasa, Pressure Injury Last Updated: 02-Feb-2020 05:39 by Kelly Hernández (RN) References: 1. Data Referenced From Risk Screen - Adult Emergency 01-Feb-2020 22:33 2. Data Referenced From Triage - ED 01-Feb-2020 19:01 Normal [facility] C-REACTIVE PROTEINon 020 CRP [Mass/Vol] 0.32 mg/dL Normal [facility] Comment on above: Result Comment: REF VALUE < 1.00 Performed By: #### C OAGS #### [facility] [address] [place] [address] Daily Progress Note-Medicine on 02-02-2020 Daily Progress [...] meals. Objective Data: Objective Information: T PRBPSpO2 Value36.23514207/6496% Date/Time02/01 16: 16: 16: 16: 16:33 Range(36.7C [...] Reference Range: STRAW,YELLOW Appearance, Urine CLEAR Specific [place], Urine 1.008 pH, Urine 7.0 Protein, Urine [...] 02-Feb-2020 19:43 by Kimberly Sanchez () Normal [facility] Discharge Planning Qnmg1tm 1 2 Discharge Planning Note2 Discharge Plann ing: Needs Prior to Discharge (ex. Home Care Orders, IV/O2 prescriptions) follow up appt Discharge Barriers (ex. Avoidable days, wait guardianship, pt refuse leave) None Planned Dispositionhome Discharge Destinationhome with Significant other [facility] < 20no Anticipated Discharge [id number] Discharge Planning 02/02/20 [place] 55 Discharge Note Patient came from home with severe abdominal pain. Alert and orient. Pt is Up ad donal. Denies O2, home care, and any assistance device. Pt currently has no financial concerns. Primary contact center professional Nita Lazo can be reach at [phone]. Anticipated discharged is currently unknown. Kelly BHAGATN RN Late Entry for 02/02/20 1600 02/02/202114 Transitional Care Coordination Progress Note: Patient was discussed during interdisciplinary rounds. Team members present: medical team, and TCC. Plan per medical team: Pt admitted with c/o abd pain, treated for acute pancreatitis. Plan to monitor CIWA and medicate as needed for withdrawal. Payer: [facility] Status: Inpatient Discharge disposition: Home with significant other Potential barriers: None ADOD: 02/03 residential coordinator will continue to follow for discharge planning needs. Chen Bajwa, MSN, RN-, [id number]/[phone] 02/03/2020 10:09AM SOCIAL WORK NOTE SW attempted [...] has already contacted a rehab center in [place] and is going to meet with a sponsor. Patient will reach out if he would like to further discuss rehab options. Payam Rossi, CANDLEMAKER, GREEN ENERGY MARKETING ANALYST pager [phone] 02/03/2020 Discharge Note 1800 Pt discharged. Discharge paper work and prescriptions reviewed and given. Pt states an understanding of his medications and follow appointments. IV access removed. Pt tolerated well. Pt ambulated off unit and did not appear to be in any distress. Tej Gardiner RN Assessment: Discharge Planning Assessment [id number] Discharge Planning Assessment Completed byChaya Quiroz RN, BSN, Transitional Check Writer Doc Halo [id number] or Primary Contact Name and NumberNita Lazo [phone]-girlfriend Stated Reason for Admission pancreatitis(1) Arrived [place] (1) Readmission Within the Last 30 Daysno previous admission in last 30 days PCPLuis Carnes PCP Last Date SeenVia phone two weeks ago [facility] Medication Adherence/Afford/Obtainy es InsuranceAnthem Lives Withsignificant other; dependent child(kamilah) Living Arrangementshouse Recent Falls/ Injury/ Need Assist with Ambulationdenies Prior Level of Functioningindependent with ADLs, iADLs Home Care Agency/Support Servicesn/a DME Supplier Name/Numbern/a O2 LPMn/a Home O2 Suppliern/a Diabetic/Supplies Neededn/a Hemodialysis Schedulen/a Other Needsn/a Resource/Environmental Concernsnone(1) Social Determinants of Health Identifiedn/a Special Considerationsn/a Transportation Home Who/HowGirlfriend will transport home. Anticipated Transition [place](1) Services Anticipated at Transitionnon(1) Anticipated Changes Related to Illnessnone Equipment Needed [...] Profile - Adult v2 02-Feb-2020 05:42 Normal [facility] EMR ADDONon 02-02-2020 ADDON CONFIRMATION REQUEST REC'D Normal [facility] Comment on above: Performed By: #### A #### [facility] [address] [place] [address] History and Physicalon 02-01 History and Physical History of Present Illness: HPI: 39M with h/o opioid use d/o (on Suboxone), HH, EtOH abuse and recent dx acute pancreatitis (ED visits 01/13 and 01/16/20, refused admission then) who, per messaging h/o from quality improvement coordinator @ 6008 is admitted to [facility] Hospitalist service via [facility] ED for pancreatitis. Per [...] 99% RA (T36.7 @ 1901) Labs: Covid+ 11/23; WBC 7.2K (P53/L36/M10); lactate 2.1; lytes/renal wnl; [...] IV both @ 2156 Pt seen on [address] unit, unaccompanied. Says this has been [...] 8-2 MG SL 42.00 28 [facility] [id number] Dis (1180) 0 12.00 mg Comm [place] 12/01/2019 2 12/01/2019 Buprenorphin-Naloxon 8-2 MG SL 19.00 13 Ni Lab [id number] Dis (1180) 0 11.69 mg [place] 10/25/2019 2 10/25/2019 Buprenorphin-Naloxon 8-2 MG SL 42.00 28 [facility] [id number] Dis (1180) 0 12.00 mg [place] 09/27/2019 2 09/27/2019 Buprenorphin-Naloxon 8-2 MG SL 42.00 28 [facility] [id number] Dis (1180) 0 12.00 mg [place] 08/30/2019 2 08/30/2019 Buprenorphin-Naloxon 8-2 MG SL 42.00 28 [facility] [id number] Dis (1180) 0 12.00 mg [place] 08/02/2019 2 08/02/2019 Buprenorphin-Naloxon 8-2 MG SL 42.00 28 Ni Lab [id number] Dis (1180) 0 12.00 mg [place] 07/05/2019 2 07/05/2019 Buprenorphin-Naloxon 8-2 MG SL 42.00 28 Ni Lab [id number] Dis (1180) 0 12.00 mg [place]. Objective: Objective Information: Weights 01/31 19:01: Weight in lbs ((lbs)) 155.4 01/31 19:01: Weight in kg (Weight (kg)) 70.5 01/31 19:01: BMI (kg/m2) (BMI (kg/m2)) 20.51 T PRBPSpO2 Value36.38805257/8499% Date/Time01/31 19: 23: 23: 23: 23:20 Range(36.7C - 36.7C ) (75 - 96 ) (16 - 16 ) (112 - 121 )/ (75 - 84 ) (98% - 99% ) Pt seen in room on [address] nursing unit, unaccompanied (for focused / appropriately-distanced [...] Reference Range: STRAW,YELLOW Appearance, Urine CLEAR Specific [place], Urine 1.008 pH, Urine 7.0 Protein, Urine [...] reviewed): ####; QTc #### ms -------- PARTIAL PLASTIC JOINT MAKER DATA (SEE EMR AND PORTAL FOR MORE [...] some contacts re: treatment programs; would ask CANDLEMAKER or addiction counselor here for help with [...] care Jarred Oliveira MD, MS [facility]ist, [facility] Geriatrics, Hospital and Post-Acute Medicine - Signatures/Attestation/C ertification: Note Completion: Attending Provider Inpatient Certification StatementI certify this patients need for inpatient care based on the above documentation including; the order to admit as inpatient, the anticipated length of stay, diagnosis, problem list and plan of care, and discharge plan. Admission Order - View OnlyCurrent Admission Order. Admit to Inpatient Adult [facility] Admitting Diagnosis, K85.90 Pancreatitis, acute Admitting Service, Medicine Level of Care, Med/Surg Ivan Oliveira Admission Order Certification order has been placed by Ivan Oliveira Electronic Signatures: Ivan Oliveira) (Signed 02-Feb-2020 09:48) Authored: History of Present Illness, Comorbidities, Allergies, Medications Prior to Admission, Objective, Assessment and Plan, Note Completion Last Updated: 02-Feb-2020 09:48 by Ivan Oliveira) [facility] Magnesium [Mass/Vol] 1.82 mg/dL Normal 1.60 - 2.40 [facility] Comment on above: Performed By: #### V LUIS #### [facility] [address], [place] [id number] Patient Profile - Adult v2on 02-02-2020 Patient Profile - Adult v2 Profile: Initial Info: How to be AddressedNate(1) Spoken Language PreferredEnglish (1) Source of Informationpatient Stated Reason for Admissionpancreatitis Primary Contact Name and NumberNita Lazo [phone] Patient Belongingsnone Arrived Fromburas Medications Brought to Hospitalno Are you currently using the Personal Electronic Health Record or MYCAREno (1) Are you interested in learning more about MYCARE for the management of your healthdeclined Wants Family/Rep Notified of Admissionyes, primary contact Notify PCPnotify PCP Informed of Patient Visiting Rightsno General Health: Weight in kg65.2 kilogram(s)(2) Weight in fow918.7 pound(s) Weight Methodactual (measured) (2) Scale Typestanding [...] Arrangementsapartment Services Anticipated at Transitionnone Anticipated Transition Toburas Significant IndicatorsComplete Information Review: Allergies, Home Meds [...] Note - ED v2 01-Feb-2020 22:18 Normal [facility] Provider Note - ED v2on 01-23 Provider Note - ED v2 Provider Note [...] 19:01 BP Systolic (mm Hg): 117 02-01-2020 19: BP Diastolic (mm Hg): 84 02-01-2020 19:01 [...] SIGNS: T PRBP SpO2O2(LPM) %FiO2 Method 01-Feb-2020 23:20:[id number]/84 99 01-Feb-2020 22:24:[id number]/75 98 01-Feb-2020 19:01:[id number]/ 98 room air, no respiratory support PHYSICAL [...] Name:Pancreatitis, acute Code:K85.90 Disposition: hospitalized Admit to: [facility]. Admitting Considerations: ATTESTATION Attestation: This is a [...] Impression, Attestation, Chart Review, Scores Nemo Preciado (GRAIN OILSEED OR PASTURE GROWER-FIELD CROP I FARMWORKER) (Signed 01-Feb-2020 23:21) Authored: ED Notes, HPI, PMH, PE, Results/Vital Signs, MDM/ED Course, Clinical Impression, Attestation, Chart Review, Scores Last Updated: 01-Feb-2020 23:58 by Jose Armadno Dorantes) References: 1. Data Referenced From Triage - ED 01-Feb-2020 19:01 Normal [facility] Risk Screen - Adult Emergenc yon 02-02-2020 Risk Screen - Adult Emergency Preferred Language: Preferred Language: Preferred Language for Discussing Health Care (patient/designee)Eli stewart Advanced Directives: Advance Directive/DNRno Family Violence Adult: [...] an injured patient at a Trauma Center ([facility]/[place] /[place]): yes C: Have you ever felt you needed to Cut down on your drinking: no A: Have people Annoyed you by criticizing your drinking: no G: Have you ever felt Guilty about drinking: no E: Have you ever felt you needed a drink first thing in the morning (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) to steady your nerves or to get rid of hangover: no Electronic Signatures: Maurilio Gaspar (GREG) (Signed 01-Feb-2020 22:37) Authored: Preferred Language, Advanced Directives, Family Violence Adult, Learning Assessment (Patient), Learning Assessment (Other Learner), Pressure Injury/TB/Substance, Pressure Injury, CAGE Last Updated: 01-Feb-2020 22:37 by Maurilio Gaspar) Normal [facility] TROPONIN Ion 02-02-2020 Troponin I.cardiac [Mass/Vol] ng/mL Normal 0.00 - 0.03 [facility] Comment on above: Result Comment: LESS THAN [...] is performed using different testing methodology at [facility] than at other [facility]. Direct result comparisons should only be made within the same method. . Biotin interference may cause falsely decreased results. Patients taking a Biotin dose of up to 5 mg/day should refrain from taking Biotin for 24 hours before sample collection. Providers may contact their laboratory for further information. Performed By: #### C BCDF #### [facility] [address] [place] [address] URINALYSISon 02-02-2020 Appearance (U) CLEAR Normal CLEAR [facility] Comment on above: Performed By: #### V TA #### [facility] [address], [place] [id number] Bilirubin (U) [Mass/Vol] Negative Normal NEGATIVE [facility] Comment on above: Performed By: #### V TA #### [facility] [facility] [address] [place] [id number] BLOOD Negative Normal NEGATIVE [facility] Comment on above: Performed By: #### V TA #### [facility] [facility] [address] [place] [id number] Color (U) ALISSA Normal STRAW,YELLOW [facility] Comment on above: Performed By: #### V TA #### [facility] [address], [place] [id number] Glucose [Mass/Vol] Negative Normal NEGATIVE [facility] Comment on above: Performed By: #### V TA #### [facility] [facility] [address], [place] [id number] Ketones Ql (U) Negative Normal NEGATIVE [facility] Comment on above: Performed By: #### V TA #### [facility] [address], [place] [id number] Leukocyte esterase Test strip Ql (U) Negative Normal NEGATIVE [facility] Comment on above: Performed By: #### V TA #### [facility] [address], [place] [id number] Nitrite Ql (U) Negative Normal NEGATIVE [facility] Comment on above: Performed By: #### V TA #### [facility] [address], [place] [id number] pH (Bld) 7.0 Normal 5.0 - 8.0 [facility] Comment on above: Performed By: #### V TA #### [facility] [address], [place] [id number] Protein (U) [Mass/Vol] Negative Normal NEGATIVE [facility] Comment on above: Performed By: #### V TA #### [facility] [address], [place] [id number] Specific gravity (U) [Rel density] 1.008 Normal 1.005 - 1.035 [facility] Comment on above: Performed By: #### V TA #### [facility] [facility] [address], [place] [id number] Urobilinogen Qn (U) 4.0 mg/dL High 0.0 - 1.9 [facility] Comment on above: Result Comment: SOME PIGMENTS AND MEDICATIONS MAY CAUSE A FALSE POSITIVE UROBILINOGEN Performed By: #### V TA #### [facility] [place] [address], [place] [phone] CBC AND DIFFERENTIALon 01-31 % AUTOMATED IMMATURE GRAN 0.3 % Normal 0.0 - 0.9 [facility] Comment on above: Result Comment: [place] Granulocyte Count (IG) includes promyelocytes, myelocytes and metamyelocytes but does not include bands. Percent differential counts (%) should be interpreted in the context of the absolute cell counts (cells/L). Performed By: #### V TA #### [facility] [place] [address], [place] [id number] Basophils (Bld) [#/Vol] 0.07 10*3/uL Normal 0.00 - 0.1 0 [facility] Comment on above: Performed By: #### V TA #### [facility] [facility] [address], [place] [id number] Basophils/100 WBC (Bld) 1.0 % Normal 0.0 - 2.0 [facility] Comment on above: Performed By: #### V TA #### [facility] [address], [place] [id number] Eosinophils (Bld) [#/Vol] 0.03 10*3/uL Normal 0.00 - 0.70 [facility] Comment on above: Performed By: #### V TA #### [facility] [address], [place] [id number] Eosinophils/100 WBC (Bld) 0.4 % Normal 0.0 - 6.0 [facility] Comment on above: Performed By: #### V TA #### [facility] [address], [place] [phone] Erythrocyte distribution width (RBC) [Ratio] 13.2 % Normal 11.5 - 14.5 [facility] Comment on above: Performed By: #### V TA #### [facility] [address], [place] [id number] Hematocrit (Bld) [Volume fraction] 42.8 % Normal 41.0 - 52.0 [facility] Comment on above: Performed By: #### V TA #### [facility] [address], [place] [id number] Hemoglobin (Bld) [Mass/Vol] 14.6 g/dL Normal 13.5 - 17.5 [facility] Comment on above: Performed By: #### V TA #### [facility] [address], [place] [id number] Lymphocytes (Bld) [#/Vol] 2.57 10*3/uL Normal 1.20 - 4.80 [facility] Comment on above: Performed By: #### V TA #### [facility] [address], [place] [id number] Lymphocytes/100 WBC (Bld) 35.6 % Normal 13.0 - 44.0 [facility] Comment on above: Performed By: #### Vijay TA #### [facility] [address], [place] [id number] MCHC (RBC) [Mass/Vol] 34.1 g/dL Normal 32.0 - 36.0 [facility] Comment on above: Performed By: #### Vijay TA #### [facility] [facility] [address], [place] [id number] MCV (RBC) [Entitic vol] 102 fL High 80 - 100 [facility] Comment on above: Performed By: #### Vijay TA #### [facility] [facility] [address], [place] [phone] Monocytes (Bld) [#/Vol] 0.73 10*3/uL Normal 0.10 - 1.0 0 [facility] Comment on above: Performed By: #### Vijay TA #### [facility] [facility] [address], [place] [id number] Monocytes/100 WBC (Bld) 10.1 % Normal 2.0 - 10.0 [facility] Comment on above: Performed By: #### V TA #### [facility] [facility] [address], [place] [id number] Neutrophils (Bld) [#/Vol] 3.79 10*3/uL Normal 1.20 - 7.70 [facility] Comment on above: Performed By: #### V TA #### [facility] [address], [place] [id number] Neutrophils/100 WBC (Bld) 52.6 % Normal 40.0 - 80.0 [facility] Comment on above: Performed By: #### V TA #### [facility] [address], [place] [id number] Nucleated RBC/100 WBC (Bld) [Ratio] 0.0 /100 WBC Normal 0.0-0.0 [facility] Comment on above: Performed By: #### V TA #### [facility] [address], [place] [id number] Platelets (Bld) [#/Vol] 150 10*3/uL Normal 150 - 450 [facility] Comment on above: Performed By: #### V TA #### [facility] [address], [place] [id number] RBC (Bld) [#/Vol] 4.20 x10E12/L Low 4.50 - 5.90 [facility] Comment on above: Performed By: #### V TA #### [facility] [address], [place] [id number] WBC (Bld) [#/Vol] 7.2 10*3/uL Normal 4.4 - 11.3 [facility] Comment on above: Performed By: #### Vijay TA #### [facility] [address], [place] [id number] COMPREHENSIVE PANELon 2019 Albumin [Mass/Vol] 4.2 g/dL Normal 3.4 - 5.0 [facility] Comment on above: Performed By: #### C BCDF #### [facility] [address] [place] [address] ALP [Catalytic activity/Vol] 124 U/L High 33 - 120 [facility] Comment on above: Performed By: #### C BCDF #### [facility] [address] [place] [address] ALT [Catalytic activity/Vol] 84 U/L High 10 - 52 [facility] Comment on above: Result Comment: Hue ents treated with Sulfasalazine may generate falsely decreased results for ALT. Performed By: #### C BCDF #### [facility] [address] [place] [address] Anion gap [Moles/Vol] 20 mmol/L Normal 10 - 20 [facility] Comment on above: Performed By: #### C BCDF #### [facility] [address] [place] [address] AST [Catalytic activity/Vol] 180 U/L High 9 - 39 [facility] Comment on above: Performed By: #### C BCDF #### [facility] [address] [place] [address] Bilirubin [Mass/Vol] 1.9 mg/dL High 0.0 - 1.2 [facility] Comment on above: Performed By: #### C BCDF #### [facility] [address] [place] [address] Calcium [Mass/Vol] 9.5 mg/dL Normal 8.6 - 10.6 [facility] Comment on above: Performed By: #### C BCDF #### [facility] [address] [place] [address] Chloride [Moles/Vol] 100 mmol/L Normal 98 - 107 [facility] Comment on above: Performed By: #### C BCDF #### [facility] [address] [place] [address] Creatinine [Mass/Vol] 0.60 mg/dL Normal 0.50 - 1.30 [facility] Comment on above: Performed By: #### C BCDF #### [facility] [address] [place] [address] GFR- AM. >60 Normal >60 [facility] Comment on above: Result Comment: CALC ULATIONS OF ESTIMATED GFR ARE PERFORMED USING THE MDRD STUDY EQUATION FOR THE IDMS-TRACEABLE CREATININE METHODS. CLIN CHEM 2007;53:766-72 Performed By: #### C BCDF #### [facility] [address] [place] [address] GFR-NON AM. >60 Normal >60 [facility] Comment on above: Performed By: #### C BCDF #### [facility] [address] [place] [address] Glucose [Mass/Vol] 105 mg/dL High 74 - 99 [facility] Comment on above: Performed By: #### C BCDF #### [facility] [address] [place] [address] HCO3 (Bld) [Moles/Vol] 26 mmol/L Normal 21 - 32 [facility] Comment on above: Performed By: #### C BCDF #### [facility] [address] [place] [address] Potassium [Moles/Vol] 3.8 mmol/L Normal 3.5 - 5.3 [facility] Comment on above: Performed By: #### C BCDF #### [facility] [address] [place] [address] Protein [Mass/Vol] 7.8 g/dL Normal 6.4 - 8.2 [facility] Comment on above: Performed By: #### C BCDF #### [facility] [address] [place] [address] Sodium [Moles/Vol] 142 mmol/L Normal 136 - 145 [facility] Comment on above: Performed By: #### C BCDF #### [facility] [address] [place] [address] Urea nitrogen [Mass/Vol] 7 mg/dL Normal 6 - 23 [facility] Comment on above: Performed By: #### C BCDF #### [facility] [address] [place] [address] LACTATEon 02-01-2020 Lactate [Moles/Vol] 2.1 mmol/L High 0.4 - 2.0 [facility] Comment on above: Result Comment: Kalyn puncture immediately after or during the administration of Metamizole may lead to falsely low results. Testing should be performed immediately prior to Metamizole dosing. Performed By: #### C BCDF #### [facility] [address] [place] [address] LIPASEon 02-01-2020 Lipase [Catalytic activity/Vol] 20 U/L Normal 9 - 82 [facility] Comment on above: Result Comment: Kalyn puncture immediately after or during the administration of Metamizole may lead to falsely low results. Testing should be performed immediately prior to Metamizole dosing. V-xdcerv-t-benzoquinone imine (metabolite of Acetaminophen) will generate erroneously low results in samples for patients that have taken toxic doses of acetaminophen. Performed By: #### V TA #### [facility], [place] [id number] Triage - EDon 02-01-2020 Triage - ED [...] BMI (kg/m2): 20.510 Calculated BSA (m2) 1.91 [place] Coma Scale: Best Eye Response: (E4) spontaneous Best Motor Response: (M6) obeys commands Best Verbal Response: (V5) oriented [place] Score: 15 Patient has homicidal thoughts: no [...] ETOH abuse: Social/Behavioral, Active Electronic Signatures: Sydney Aguilar) (Signed 01-Feb-2020 19:06) Authored: Quick Triage, Risk Screens, Pain, Chart Review, Scores, Past Medical History Last Updated: 01-Feb-2020 19:06 by Sydney Aguilar (SHALA) Normal [facility] VITAMIN Aon 01-24-2020 VITAMIN A 33.6 ug/dL Normal 18.9-57.3 [facility] Comment on above: Result Comment: Refe rence intervals for vitamin A determined from [facility] internal studies. Individuals with vitamin A less than 20 ug/dL are considered vitamin A deficient and those with serum concentrations less than 10 ug/dL are considered severely deficient. This test was developed and its performance characteristics determined by [facility]. It has not been cleared or approved by the Food and Drug Administration. Test(s) 477082-Mrlipww E(Alpha Tocopherol); 213048- Vitamin E(Gamma Tocopherol) was developed and its performance characteristics determined by [facility]. It has not been cleared or approved by the Food and Drug Administration. Performed By: #### V TA #### [facility] [address], [place] [id number] VITAMIN David 01-24-2020 VITAMIN E [ALPHA TOCOPHEROL] 8.0 mg/L Normal 5.9-19.4 [facility] Comment on above: Performed By: #### A LC #### [facility] [address] [place] [address] VITAMIN E [GAMMA TOCOPHEROL] 1.3 mg/L Normal 0.7-4.9 [facility] Comment on above: Result Comment: Refe rence intervals for alpha and gamma-tocopherol determined from National Health and Nutrition Examination Survey, 0588-6576. Individuals with alpha-tocopherol levels less than 5.0 mg/L are considered vitamin E deficient. Test(s) 329744-Glnztxl E(Alpha Tocopherol); 660637- Vitamin E(Gamma Tocopherol) was developed and its performance characteristics determined by [facility]. It has not been cleared or approved by the Food and Drug Administration. Performed By: #### A RODGER #### [facility] [address] [place] [address] CBC AND DIFFERENTIALon 01-17 -2019 % AUTOMATED IMMATURE GRAN 0.5 % Normal 0.0 - 0.9 [facility] Comment on above: Result Comment: [place] Granulocyte Count (IG) includes promyelocytes, myelocytes and metamyelocytes but does not include bands. Percent differential counts (%) should be interpreted in the context of the absolute cell counts (cells/L). Performed By: #### V TA #### [facility] [address], [place] [id number] Basophils (Bld) [#/Vol] 0.04 10*3/uL Normal 0.00 - 0.1 0 [facility] Comment on above: Performed By: #### V TA #### [facility] [address], [place] [address] Basophils/100 WBC (Bld) 1.0 % Normal 0.0 - 2.0 [facility] Comment on above: Performed By: #### V TA #### [facility] [address], [place] [id number] Eosinophils (Bld) [#/Vol] 0.11 10*3/uL Normal 0.00 - 0.70 [facility] Comment on above: Performed By: #### V TA #### [facility] [address], [place] [phone] Eosinophils/100 WBC (Bld) 2.6 % Normal 0.0 - 6.0 [facility] Comment on above: Performed By: #### V TA #### [facility] [place] [address], [place] [id number] Erythrocyte distribution width (RBC) [Ratio] 12.6 % Normal 11.5 - 14.5 [facility] Comment on above: Performed By: #### V TA #### [facility] [place] [address], [place] [id number] Hematocrit (Bld) [Volume fraction] 42.0 % Normal 41.0 - 52.0 [facility] Comment on above: Performed By: #### V TA #### [facility] [address], [place] [id number] Hemoglobin (Bld) [Mass/Vol] 14.6 g/dL Normal 13.5 - 17.5 [facility] Comment on above: Performed By: #### V TA #### [facility] [place] [address], [place] [id number] Lymphocytes (Bld) [#/Vol] 1.64 10*3/uL Normal 1.20 - 4.80 [facility] Comment on above: Performed By: #### V TA #### [facility] [address], [place] [id number] Lymphocytes/100 WBC (Bld) 39.0 % Normal 13.0 - 44.0 [facility] Comment on above: Performed By: #### V TA #### [facility] [address], [place] [id number] MCHC (RBC) [Mass/Vol] 34.8 g/dL Normal 32.0 - 36.0 [facility] Comment on above: Performed By: #### V TA #### [facility] [address], [place] [id number] MCV (RBC) [Entitic vol] 101 fL High 80 - 100 [facility] Comment on above: Performed By: #### V TA #### [facility] [place] [address], [place] [address] Monocytes (Bld) [#/Vol] 0.48 10*3/uL Normal 0.10 - 1.0 0 [facility] Comment on above: Performed By: #### V TA #### [facility] [facility] [address], [place] [id number] Monocytes/100 WBC (Bld) 11.4 % Normal 2.0 - 10.0 [facility] Comment on above: Performed By: #### Vijay TA #### [facility] [address], [place] [id number] Neutrophils (Bld) [#/Vol] 1.92 10*3/uL Normal 1.20 - 7.70 [facility] Comment on above: Performed By: #### Vijay TA #### [facility] [address] [place], [place] [id number] Neutrophils/100 WBC (Bld) 45.5 % Normal 40.0 - 80.0 [facility] Comment on above: Performed By: #### Vijay SMITH #### [facility] [address], [place] [address] Nucleated RBC/100 WBC (Bld) [Ratio] 0.0 /100 WBC Normal 0.0-0.0 [facility] Comment on above: Performed By: #### Vijay TA #### [facility] [address] [place] [address], [place] [address] Platelets (Bld) [#/Vol] 117 10*3/uL Low 150 - 450 [facility] Comment on above: Performed By: #### Vijay TA #### [facility] [address] [place] [address], [place] [id number] RBC (Bld) [#/Vol] 4.16 x10E12/L Low 4.50 - 5.90 [facility] Comment on above: Performed By: #### Vijay TA #### [facility] [address] [place], [place] [id number] WBC (Bld) [#/Vol] 4.2 10*3/uL Low 4.4 - 11.3 [facility] Comment on above: Performed By: #### Vijay TA #### [facility] [address] [place] [address], [place] [phone] COAGULATION SCREENon 11-25-2 020 aPTT Coag (Bld) [Time] 32 s Normal 25 - 35 [facility] Comment on above: Result Comment: THE APTT IS NO LONGER USED FOR MONITORING UNFRACTIONATED HEPARIN THERAPY. FOR MONITORING HEPARIN THERAPY, USE THE HEPARIN ASSAY. Performed By: #### C OAGS #### [facility] [address] [place] [address] INR Coag (PPP) [Relative time] 1.0 {INR} Normal 0.9 - 1.1 [facility] Comment on above: Performed By: #### C OAGS #### [facility] [address] [place] [address] PT Coag (PPP) [Time] 11.9 s Normal 10.1 - 13.3 [facility] Comment on above: Performed By: #### C OAGS #### [facility] [address] [place] [address] D-DIMER, NON VTEon 0 Fibrin D-dimer FEU IA (Bld) [Mass/Vol] 549 ng/mL FEU Abnormal = 500 [facility] Comment on above: Result Comment: THE D-DIMER ASSAY IS REPORTED IN NG/ML FIBRINOGEN EQUIVALENT UNITS (FEU). THE RESULTS OF THIS ASSAY SHOULD NOT BE USED FOR THE EXCLUSION OF DEEP VEIN THROMBOSIS AND/OR PULMONARY EMBOLISM. Performed By: #### V TA #### [facility] [place] [address], [place] [id number] LIPID PANEL (CORONARY RISK 2 )on 01-18-2020 Cholesterol [Mass/Vol] 158 mg/dL Normal 0 - 199 [facility] Comment on above: Result Comment: . AGE [...] considered. Performed By: #### V TA #### [facility] [place] [address] [place] [address], [place] [id number] Cholesterol in HDL [Mass/Vol] 52.4 mg/dL Normal [facility] Comment on above: Result Comment: . AGE VERY LOW LOW NORMAL HIGH 0-19 Y < 35 < 40 40-45 ---- 20-24 Y ---- < 40 >45 ---- >24 Y ---- < 40 40-60 >60 . Performed By: #### V TA #### [facility] [place] [address] [place], [place] [id number] Cholesterol in LDL [Mass/Vol] 79 mg/dL Normal 0 - 99 [facility] Comment on above: Result Comment: . NEAR BORD AGE DESIRABLE OPTIMAL HIGH HIGH VERY HIGH 0-19 Y 0 - 109 --- 110-129 >/= 130 ---- 20-24 Y 0 - 119 --- 120-159 >/= 160 ---- >24 Y 0 - 99 100-129 130-159 160-189 >/=190 . Performed By: #### V TA #### [facility] [place] [address] [place], [place] [id number] Cholesterol in VLDL [Mass/Vol] 27 mg/dL Normal 0 - 40 [facility] Comment on above: Performed By: #### V TA #### [facility] [place] [address] [place] [address], [place] [id number] Cholesterol.total/Choles terol in HDL [Mass ratio] 3.0 {ratio} Normal [facility] Comment on above: Result Comment: REF VALUES DESIRABLE < 3.4 HIGH RISK > 5.0 Performed By: #### V TA #### [facility] [place] [address] [place], [place] [id number] Triglyceride [Mass/Vol] 134 mg/dL Normal 0 - 149 U [facility] Comment on above: Result Comment: . AGE [...] dosing. Performed By: #### V TA #### [facility] [place] [address] [place] [address], [place] [id number] RENAL FUNCTION PANELon 01-17 Albumin [Mass/Vol] 3.4 g/dL Normal 3.4 - 5.0 [facility] Comment on above: Performed By: #### V TA #### [facility] [place] [address] [place], [place] [id number] Anion gap [Moles/Vol] 13 mmol/L Normal 10 - 20 [facility] Comment on above: Performed By: #### V TA #### [facility] [place] [address] [place] [address], [place] [id number] Calcium [Mass/Vol] 8.9 mg/dL Normal 8.6 - 10.6 [facility] Comment on above: Performed By: #### V TA #### [facility] [place] [address] [place] [address], [place] [id number] Chloride [Moles/Vol] 102 mmol/L Normal 98 - 107 [facility] Comment on above: Performed By: #### V TA #### [facility] [place] [address] [place] [address], [place] [id number] Creatinine [Mass/Vol] 0.48 mg/dL Low 0.50 - 1.30 [facility] Comment on above: Performed By: #### V TA #### [facility] [place] [address] [place] [address], [place] [id number] GFR- AM. >60 Normal >60 [facility] Comment on above: Result Comment: CALC ULATIONS OF ESTIMATED GFR ARE PERFORMED USING THE MDRD STUDY EQUATION FOR THE IDMS-TRACEABLE CREATININE METHODS. CLIN CHEM 2007;53:766-72 Performed By: #### V TA #### [facility] [place] [address] [place] [address], [place] [id number] GFR-NON AM. >60 Normal >60 [facility] Comment on above: Performed By: #### V TA #### [facility] [place] [address] [place] [address], [place] [id number] Glucose [Mass/Vol] 88 mg/dL Normal 74 - 99 [facility] Comment on above: Performed By: #### V TA #### [facility] [place] [address] [place] [address], [place] [id number] HCO3 (Bld) [Moles/Vol] 29 mmol/L Normal 21 - 32 [facility] Comment on above: Performed By: #### V TA #### [facility] [place] [address], [place] [id number] Phosphate [Mass/Vol] 2.7 mg/dL Normal 2.5 - 4.9 [facility] Comment on above: Result Comment: The performance characteristics of phosphorus testing in heparinized plasma have been validated by the individual laboratory site where testing is performed. Testing on heparinized plasma is not approved by the FDA; however, such approval is not necessary. Performed By: #### V TA #### [facility] [place] [address] [place] [address], [place] [id number] Potassium [Moles/Vol] 3.6 mmol/L Normal 3.5 - 5.3 [facility] Comment on above: Performed By: #### V TA #### [facility] [place] [address] [place] [address], [place] [id number] Sodium [Moles/Vol] 140 mmol/L Normal 136 - 145 [facility] Comment on above: Performed By: #### V TA #### [facility] [place] [address] [place] [address], [place] [phone] Urea nitrogen [Mass/Vol] 5 mg/dL Low - [facility] Comment on above: Performed By: #### V TA #### [facility] [place] [address] [place] [address], [place] [id number] VITAMIN D, 25-HYDROXYon 12-25 VITAMIN D, 25-HYDROXY 25 ng/mL Abnormal [facility] Comment on above: Result Comment: . DEFICIENCY: < 20 NG/ML INSUFFICIENCY: 20-29 NG/ML SUFFICIENCY: 30-100 NG/ML THIS ASSAY ACCURATELY QUANTIFIES THE SUM OF VITAMIN D3, 25-HYDROXY AND VIT D2,25-HYDROXY. Performed By: #### C BCDF #### [facility] [address] [place] [address] Admission Risk Screen - Adul [facility] 01-17-2020 Admission Risk Screen - Adult Allergies: [...] any thoughts of harming anyone elseno (2) [place] Suicide: Risk Screen Not Applicable/Able to Answerable to be screened In the Past Month: Have you wished you were or could go to sleep and not wake upno(2) In the Past Month: Have you had any actual thoughts of killing yourself no(2) Lifetime: Have you ever done, started to do, or prepared to do anything to end your lifeno [place] Suicide Risknegative Adult Nutrition Screen: Have you [...] Spiritual Screen: Are there any cultural, spiritual, sabianist practices/values/needs that are important for us to knowno CAGE: Is this an injured patient at a Trauma Center ([facility]/[place] /[place]): no (1) Vaccinations: Vaccination - Influenza Vaccination Screen: Is it flu season (between and June 05)Yes Screening for identified contraindications to influenza vaccination patient/caregiver refusal Vaccination - Pneumonia Vaccination Screen: Patient has received a previous pneumonia vaccine:no/unknown... Immunocompetent persons with underlying chronic conditions or reside in fci care facilitiesalcoholism Persons with Functional or Anatomic [...] Injury Present on Admissionno Electronic Signatures: Cj lAlison (RN) (Signed 17-Jan-2020 01:30) Authored: Admission Risk Screens, López Fall Screen, Vaccinations, Srinivasa, Pressure Injury Last Updated: 17-Jan-2020 01:30 by Cj Allison (RN) References: 1. Data Referenced From Risk Screen - Adult Emergency 16-Jan-2020 11:19 2. Data Referenced From Triage - ED 16-Jan-2020 10:15 Normal [facility] CBCon 01-17-2020 Erythrocyte distribution width (RBC) [Ratio] 12.4 % Normal 11.5 - 14.5 [facility] Comment on above: Performed By: #### C BC #### [facility] [address] [place] [address] Hematocrit (Bld) [Volume fraction] 42.0 % Normal 41.0 - 52.0 [facility] Comment on above: Performed By: #### C BC #### [facility] [address] [place] [address] Hemoglobin (Bld) [Mass/Vol] 14.4 g/dL Normal 13.5 - 17.5 [facility] Comment on above: Performed By: #### C BC #### [facility] [address] [place] [address] MCHC (RBC) [Mass/Vol] 34.3 g/dL Normal 32.0 - 36.0 [facility] Comment on above: Performed By: #### C BC #### [facility] [address] [place] [address] MCV (RBC) [Entitic vol] 101 fL High 80 - 100 U [facility] Comment on above: Performed By: #### C BC #### [facility] [address] [place] [address] Nucleated RBC/100 WBC (Bld) [Ratio] 0.0 /100 WBC Normal 0.0-0.0 [facility] Comment on above: Performed By: #### C BC #### [facility] [address] [place] [address] Platelets (Bld) [#/Vol] 105 10*3/uL Low 150 - 450 [facility] Comment on above: Performed By: #### C BC #### [facility] [address] [place] [address] RBC (Bld) [#/Vol] 4.14 x10E12/L Low 4.50 - 5.90 [facility] Comment on above: Performed By: #### C BC #### [facility] [address] [place] [address] WBC (Bld) [#/Vol] 5.0 10*3/uL Normal 4.4 - 11.3 [facility] Comment on above: Performed By: #### C BC #### [facility] [address] [place] [address] COMPREHENSIVE PANELon 2019 Albumin [Mass/Vol] 3.3 g/dL Low 3.4 - 5.0 [facility] Comment on above: Performed By: #### A LC #### [facility] [address] [place] [address] ALP [Catalytic activity/Vol] 102 U/L Normal 33 - 120 [facility] Comment on above: Performed By: #### A LC #### [facility] [address] [place] [address] ALT [Catalytic activity/Vol] 53 U/L High 10 - 52 [facility] Comment on above: Result Comment: Hue ents treated with Sulfasalazine may generate falsely decreased results for ALT. Performed By: #### A LC #### [facility] [address] [place] [address] Anion gap [Moles/Vol] 13 mmol/L Normal 10 - 20 [facility] Comment on above: Performed By: #### A LC #### [facility] [address] [place] [address] AST [Catalytic activity/Vol] 128 U/L High 9 - 39 [facility] Comment on above: Performed By: #### A LC #### [facility] [address] [place] [address] Bilirubin [Mass/Vol] 2.7 mg/dL High 0.0 - 1.2 [facility] Comment on above: Performed By: #### A LC #### [facility] [address] [place] [address] Calcium [Mass/Vol] 8.5 mg/dL Low 8.6 - 10.6 [facility] Comment on above: Performed By: #### A LC #### [facility] [address] [place] [address] Chloride [Moles/Vol] 97 mmol/L Low 98 - 107 [facility] Comment on above: Performed By: #### A LC #### [facility] [address] [place] [address] Creatinine [Mass/Vol] 0.56 mg/dL Normal 0.50 - 1.30 [facility] Comment on above: Performed By: #### A LC #### [facility] [address] [place] [address] GFR- AM. >60 Normal >60 [facility] Comment on above: Result Comment: CALC ULATIONS OF ESTIMATED GFR ARE PERFORMED USING THE MDRD STUDY EQUATION FOR THE IDMS-TRACEABLE CREATININE METHODS. CLIN CHEM 2007;53:766-72 Performed By: #### A LC #### [facility] [address] [place] [address] GFR-NON AM. >60 Normal >60 [facility] Comment on above: Performed By: #### A LC #### [facility] [address] [place] [address] Glucose [Mass/Vol] 78 mg/dL Normal 74 - 99 [facility] Comment on above: Performed By: #### A LC #### [facility] [address] [place] [address] HCO3 (Bld) [Moles/Vol] 32 mmol/L Normal 21 - 32 [facility] Comment on above: Performed By: #### A LC #### [facility] [address] [place] [address] Potassium [Moles/Vol] 3.7 mmol/L Normal 3.5 - 5.3 [facility] Comment on above: Performed By: #### A LC #### [facility] [address] [place] [address] Protein [Mass/Vol] 5.6 g/dL Low 6.4 - 8.2 [facility] Comment on above: Performed By: #### A LC #### [facility] [address] [place] [address] Sodium [Moles/Vol] 138 mmol/L Normal 136 - 145 [facility] Comment on above: Performed By: #### A LC #### [facility] [address] [place] [address] Urea nitrogen [Mass/Vol] 11 mg/dL Normal 6 - 23 [facility] Comment on above: Performed By: #### A LC #### [facility] [address] [place] [address] Daily Progress Note-General Internal Medicineon 01-17-2020 Daily [...] paresthesia. Objective Data: Objective Information: T PRBPSpO2 [id number]/8497% Date/Time01/16 16: 16: 16: 16: 16:07 Range(35.8C [...] Protein, Serum 1.70 A Sedimentation Rate, Erythrocyte 16-Jan-2020 14:22:00 ResultValue Sedimentation Rate, Erythrocyte 6 Assessment [...] (confirmed on admission) NOK: Father (Rajeev Dailey): [phone] Signature/Cosignature/At testation: Note Completion: I am a: [...] the note. I personally evaluated the patient [id number] Comments/ Additional Findings See attestation from H&P Electronic Signatures: Cj Levin (Resident)) (Signed 17-Jan-2020 20:24) Entered: Service, Subjective Data, Objective Data, Assessment and Plan Authored: Service, Subjective Data, Objective Data, Assessment and Plan, Note Completion Clyde Carrasco) (Signed 18-Jan-2020 12:06) Authored: Note Completion Co-Signer: Assessment and Plan, Note Completion Last Updated: 18-Jan-2020 12:06 by Clyde Carrasco) [facility] Discharge Planning [id number] 1 03-18-2019 Discharge Planning Note2 Discharge Plann ing: Needs Prior to Discharge (ex. Home Care Orders, IV/O2 prescriptions) none Discharge Barriers (ex. 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 Team members present: , NIXON and PCN Plan per Medical/Surgical team: Patient admitted for ABD pain found to have pancreatitis and COVID +. Continuing to monitor pain, and respiratory status. Status: inpatient Payor source: [place] Discharge disposition: home independently Potential Barriers: COVID + ADOD: Patient attempted several times to assess patient over telephonic communication to maintain safe distancing for COVID-19 precautionary measures, patient not answering. Will attempt at another time. Chaya Quiroz RN, BSN, Transitional Check Writer Doc Halo [id number] or 01/18/20 1132 Check Writer Note This information was obtained via telephonic [...] home. patient verbalizes understanding. Lily Chun RN [id number] 01/18/20 Assessment: Discharge Planning Assessment [id number] Discharge Planning Assessment Completed byChaya Quiroz RN, BSN, Transitional Check Writer Doc Halo [id number] or Primary Contact Name and NumberJennifer [phone]- girl friend Stated Reason for Admissionpain in my stomach, nausea(1) Arrived Fromemergency department (1) Readmission Within the Last 30 Daysno previous admission in last 30 days PCPWinilson Carnes PCP Last Date Seencouple months ago [facility] [place] Medication Adherence/Afford/Obtainy es InsuranceAnthem Lives Withsignificant other(1) [...] (diet, activity, pt instructions)yes Discharge Documentation: Discharge/Transfer Date/[id number] 17:13 Discharge Modeambulatory Discharged Accompanied Byfamily member Transportation Methodprivate car Valuables/Medications/Be longings Returnedyes Final DispositionHome Electronic Signatures: Lily Chun (SHALA) (Signed 18-Jan-2020 17:13) Authored: Discharge Planning, Nursing Checklist, Discharge Documentation Chaya Quiroz (RN) (Signed 18-Jan-2020 11:43) Authored: Discharge Planning, Assessment Last Updated: 18-Jan-2020 17:13 by Lily Chun (SHALA) References: 1. Data Referenced From Patient Profile - Adult v2 17-Jan-2020 01:31 Normal [facility] Discharge [id number] Discharge Profile2 Discharge Orders: Anticipated Discharge Date: Anticipated Discharge [id number] Activity: Instructions: Continue self quarantine at home [...] Suboxone for several years who presented to [facility] ED complains of progressive abdominal pain with [...] at 18-Jan-2020 14:09:10 Appointments: Follow-Up Appointment 01: Physician/Dept/ServiceDr Julisa Simmons - General Surgery Scheduled Date/[id number] 10:[address] [address], [place] [address], Phone [phone] CommentsPlease wear a mask when entering the building. Please arrive 10-15 minutes early, bring photo ID, current list of medications & dosages, insurance cards and any copay that may apply. If unable to keep this appointment, please call to cancel at least 24 hrs prior to appointment. Follow-Up Appointment 02: Physician/Dept/ServiceDr Julisa Carnes Primary Care Physician Scheduled Date/[id number] 15:00 LocationPlease do not report to the office. You will be contacted for a Virtual Visit or a Phone Visit. Phone [phone] CommentsPlease do not report to the office. The information has been updated to your my chart Electronic Signatures: Cj Levin ( (Resident)) (Signed 18-Jan-2020 15:35) Authored: Discharge Orders, Heart Failure, Hospital Course (Home Care/Gold Form), Provider FINAL REVIEW of Orders Martin Solis (PT ACC REP) (Signed 17-Jan-2020 14:45) Authored: Appointments, Gold Form - Employee Communications Intern Summary Arielle Prabhakar (PT ACC REP) (Signed 18-Jan-2020 15:28) Authored: Appointments Last Updated: 18-Jan-2020 15:35 by Cj Levin (Resident)) Normal [facility] History and Physicalon 01-16 History and Physical History of Present Illness: Admission Reason: Abdominal pain HPI: Chief Complaint: Stomach pain History of Present Illness: Tapan Dailey is a 39y M w/PMH of inguinal hernia, cervical fusion, polysusbstance abuse ([place], opioid) now on Suboxone for several years who presented to [facility] ED complains of progressive abdominal pain with [...] been reviewed. Objective: Objective Information: T PRBPSpO2 [id number]/8998% Date/Time01/15 10: 20: 20: 20: 20:25 Range(36.4C [...] (confirmed on admission) NOK: Father (Rajeev Dailey): [phone] Signatures/Attestation/C ertification: Note Completion: I am a: [...] the note. I personally evaluated the patient [id number] Comments/ Additional Findings Mr. Dailey is a [...] OnlyCurrent Admission Order. Admit to Inpatient Adult [facility] Admitting Diagnosis, K85.90 Acute pancreatitis;U07.1 COVID-19 Level of Care, Med/Surg Cj Levin Electronic Signatures: Cj Levin ( (Resident)) (Signed 16-Jan-2020 23:14) Authored: History of Present Illness, Comorbidities, Allergies, Medications Prior to Admission, Objective, Assessment and Plan, Note Completion Clyde Carrasco) (Signed 17-Jan-2020 17:21) Authored: Note Completion Co-Signer: History of Present Illness, Comorbidities, Allergies, Medications Prior to Admission, Objective, Note Completion Last Updated: 17-Jan-2020 17:21 by Clyde Carrasco) Normal [facility] Patient Profile - Adult v2on 01-17-2020 Patient Profile - Adult v2 Profile: Initial Info: How to be AddressedNate Spoken Language PreferredEnglish Source of Informationpatient Stated Reason for Admissionpain in my stomach, nausea Patient Belongingsremains with patient [facility] Medications Brought to Hospitalno Are you currently using the Personal Electronic Health Record or MYUHCAREno Are you interested in learning more about MYCARE for the management of your healthnot at this time Wants Family/Rep Notified of Admissionno Notify PCPdeferred, unable to answer Informed of Patient Visiting Rightsyes General Health: Weight in kg67.3 kilogram(s)(1) Weight in pbc220.3 pound(s) Weight Methodactual (measured) Scale Typebed Height [...] Known Allergies: Active Electronic Signatures: Cj Allison (GREG) (Signed 17-Jan-2020 01:48) Authored: Initial Info, General Health, RSP Based Care, Substance, Health Mgmt, Relationship/Environ, Additional Information Last Updated: 17-Jan-2020 01:48 by Cj Allison (GREG) References: 1. Data Referenced From 1. Vital Signs 16-Jan-2020 22:56 2. Data Referenced From 1. Vital Signs 16-Jan-2020 10:15 3. Data Referenced From Risk Screen - Adult Emergency 16-Jan-2020 11:19 Normal [facility] TRIGLYCERIDESon 01-17-2020 Triglyceride [Mass/Vol] 123 mg/dL Normal 0 - 149 U H [facility] Comment on above: Result Comment: . AGE [...] dosing. Performed By: #### A LC #### [facility] [address] [place] [address] ALCOHOLon 01-16-2020 Ethanol [Mass/Vol] 219 mg/dL Abnormal [facility] Comment on above: Result Comment: FOR MEDICAL USE ONLY. . REF VALUES <10 Performed By: #### C OAGS #### [facility] [address] [place] [address] C-REACTIVE PROTEINon 020 CRP [Mass/Vol] 1.70 mg/dL Abnormal [facility] Comment on above: Result Comment: REF VALUE < 1.00 Performed By: #### C OAGS #### [facility] [address] [place] [address] CBC AND DIFFERENTIALon 01-15 % AUTOMATED IMMATURE GRAN 0.6 % Normal 0.0 - 0.9 [facility] Comment on above: Result Comment: [place] Granulocyte Count (IG) includes promyelocytes, myelocytes and metamyelocytes but does not include bands. Percent differential counts (%) should be interpreted in the context of the absolute cell counts (cells/L). Performed By: #### A LC #### [facility] [address] [place] [address] Basophils (Bld) [#/Vol] 0.02 10*3/uL Normal 0.00 - 0.1 0 [facility] Comment on above: Performed By: #### A LC #### [facility] [address] [place] [address] Basophils/100 WBC (Bld) 0.4 % Normal 0.0 - 2.0 U H [facility] Comment on above: Performed By: #### A LC #### [facility] [address] [place] [address] Eosinophils (Bld) [#/Vol] 0.03 10*3/uL Normal 0.00 - 0.70 [facility] Comment on above: Performed By: #### A LC #### [facility] [address] [place] [address] Eosinophils/100 WBC (Bld) 0.6 % Normal 0.0 - 6.0 [facility] Comment on above: Performed By: #### A LC #### [facility] [address] [place] [address] Erythrocyte distribution width (RBC) [Ratio] 12.3 % Normal 11.5 - 14.5 [facility] Comment on above: Performed By: #### A LC #### [facility] [address] [place] [address] Hematocrit (Bld) [Volume fraction] 42.8 % Normal 41.0 - 52.0 [facility] Comment on above: Performed By: #### A LC #### [facility] [address] [place] [address] Hemoglobin (Bld) [Mass/Vol] 15.9 g/dL Normal 13.5 - 17.5 [facility] Comment on above: Performed By: #### A LC #### [facility] [address] [place] [address] Lymphocytes (Bld) [#/Vol] 1.24 10*3/uL Normal 1.20 - 4.80 [facility] Comment on above: Performed By: #### A LC #### [facility] [address] [place] [address] Lymphocytes/100 WBC (Bld) 25.7 % Normal 13.0 - 44.0 [facility] Comment on above: Performed By: #### A LC #### [facility] [address] [place] [address] MCHC (RBC) [Mass/Vol] 37.1 g/dL High 32.0 - 36.0 [facility] Comment on above: Performed By: #### A LC #### [facility] [address] [place] [address] MCV (RBC) [Entitic vol] 95 fL Normal 80 - 100 [facility] Comment on above: Performed By: #### A LC #### [facility] [address] [place] [address] Monocytes (Bld) [#/Vol] 0.45 10*3/uL Normal 0.10 - 1.0 0 [facility] Comment on above: Performed By: #### A LC #### [facility] [address] [place] [address] Monocytes/100 WBC (Bld) 9.3 % Normal 2.0 - 10.0 [facility] Comment on above: Performed By: #### A LC #### [facility] [address] [place] [address] Neutrophils (Bld) [#/Vol] 3.05 10*3/uL Normal 1.20 - 7.70 [facility] Comment on above: Performed By: #### A LC #### [facility] [address] [place] [address] Neutrophils/100 WBC (Bld) 63.4 % Normal 40.0 - 80.0 [facility] Comment on above: Performed By: #### A LC #### [facility] [facility] [address] [place] [address] Nucleated RBC/100 WBC (Bld) [Ratio] 0.0 /100 WBC Normal 0.0-0.0 [facility] Comment on above: Performed By: #### A LC #### [facility] [address] [place] [address] Platelets (Bld) [#/Vol] 121 10*3/uL Low 150 - 450 [facility] Comment on above: Performed By: #### A LC #### [facility] [address] [place] [address] RBC (Bld) [#/Vol] 4.52 x10E12/L Normal 4.50 - 5.90 [facility] Comment on above: Performed By: #### A LC #### [facility] [address] [place] [address] WBC (Bld) [#/Vol] 4.8 10*3/uL Normal 4.4 - 11.3 [facility] Comment on above: Performed By: #### A LC #### [facility] [address] [place] [address] COAGULATION SCREENon 020 aPTT Coag (Bld) [Time] 28 s Normal 25 - 35 [facility] Comment on above: Result Comment: THE APTT IS NO LONGER USED FOR MONITORING UNFRACTIONATED HEPARIN THERAPY. FOR MONITORING HEPARIN THERAPY, USE THE HEPARIN ASSAY. Performed By: #### A LC #### [facility] [address] [place] [address] INR Coag (PPP) [Relative time] 1.0 {INR} Normal 0.9 - 1.1 [facility] Comment on above: Performed By: #### A LC #### [facility] [address] [place] [address] PT Coag (PPP) [Time] 11.4 s Normal 10.1 - 13.3 [facility] Comment on above: Performed By: #### A LC #### [facility] [address] [place] [address] COMPREHENSIVE PANELon 2019 Albumin [Mass/Vol] 4.0 g/dL Normal 3.4 - 5.0 [facility] Comment on above: Performed By: #### A LC #### [facility] [address] [place] [address] ALP [Catalytic activity/Vol] 124 U/L High 33 - 120 [facility] Comment on above: Performed By: #### A LC #### [facility] [address] [place] [address] ALT [Catalytic activity/Vol] 77 U/L High 10 - 52 [facility] Comment on above: Result Comment: Hue ents treated with Sulfasalazine may generate falsely decreased results for ALT. Performed By: #### A LC #### [facility] [address] [place] [address] Anion gap [Moles/Vol] 17 mmol/L Normal 10 - 20 [facility] Comment on above: Performed By: #### A LC #### [facility] [address] [place] [address] AST [Catalytic activity/Vol] 186 U/L High 9 - 39 [facility] Comment on above: Performed By: #### A LC #### [facility] [address] [place] [address] Bilirubin [Mass/Vol] 2.3 mg/dL High 0.0 - 1.2 [facility] Comment on above: Performed By: #### A LC #### [facility] [address] [place] [address] Calcium [Mass/Vol] 9.0 mg/dL Normal 8.6 - 10.6 [facility] Comment on above: Performed By: #### A LC #### [facility] [address] [place] [address] Chloride [Moles/Vol] 99 mmol/L Normal 98 - 107 [facility] Comment on above: Performed By: #### A LC #### [facility] [address] [place] [address] Creatinine [Mass/Vol] 0.64 mg/dL Normal 0.50 - 1.30 [facility] Comment on above: Performed By: #### A LC #### [facility] [address] [place] [address] GFR- AM. >60 Normal >60 [facility] Comment on above: Result Comment: CALC ULATIONS OF ESTIMATED GFR ARE PERFORMED USING THE MDRD STUDY EQUATION FOR THE IDMS-TRACEABLE CREATININE METHODS. CLIN CHEM 2007;53:766-72 Performed By: #### A LC #### [facility] [address] [place] [address] GFR-NON AM. >60 Normal >60 [facility] Comment on above: Performed By: #### A LC #### [facility] [address] [place] [address] Glucose [Mass/Vol] 94 mg/dL Normal 74 - 99 [facility] Comment on above: Performed By: #### A LC #### [facility] [address] [place] [address] HCO3 (Bld) [Moles/Vol] 29 mmol/L Normal 21 - 32 [facility] Comment on above: Performed By: #### A LC #### [facility] [address] [place] [address] Potassium [Moles/Vol] 3.6 mmol/L Normal 3.5 - 5.3 [facility] Comment on above: Performed By: #### A LC #### [facility] [address] [place] [address] Protein [Mass/Vol] 6.8 g/dL Normal 6.4 - 8.2 [facility] Comment on above: Performed By: #### A LC #### [facility] [address] [place] [address] Sodium [Moles/Vol] 141 mmol/L Normal 136 - 145 [facility] Comment on above: Performed By: #### A LC #### [facility] [address] [place] [address] Urea nitrogen [Mass/Vol] 9 mg/dL Normal 6 - 23 [facility] Comment on above: Performed By: #### A LC #### [facility] [address] [place] [address] CORONAVIRUS 2019, SCREEN ASY MPTOMATICon 01-16-2020 CORONAVIRUS 2019,PCR DETECTED Abnormal Not Detected [facility] Comment on above: Order Comment: ERIKA POE DETECTED COVID TO PAUL OLMSTEAD [id number]., 01/16/2020 22:06 Result Comment: . This assay is designed to detect the N2 and E genes of SARS-CoV-2 via nucleic acid amplification. A Not Detected result does not preclude COVID-19 infection since the adequacy of sample collection and/or low viral burden may result in presence of viral nucleic acids below the clinical sensitivity of this test method. Fact sheet for providers: www.fda.gov/media/193211/download Fact sheet for patients: www.fda.gov/media/487658/download This test has received FDA Emergency Use Authorization (EUA) and has been verified by [facility] ([facility]). This test is only authorized for the duration of time that circumstances exist to justify the authorization of the emergency use of in vitro diagnostic tests for the detection of SARS-CoV-2 virus and/or diagnosis of COVID-19 infection under section 564(b)(1) of the Act, 21 U.S.C. 360bbb-3(b)(1), unless the authorization is terminated or revoked sooner. [facility] is certified under CLIA-88 as qualified to perform high complexity testing. Testing is performed in the [facility] located at [address] [place] [address]. BETTE POE DETECTED COVID TO PAUL OLMSTEAD [id number]., 01/16/2020 22:06 Performed By: #### C BCDF #### [place] [address] Lab Specimen Source Nasal, Nasopharyngeal Normal [facility] Comment on above: Order Comment: ERIKA POE DETECTED COVID TO PAUL OLMSTEAD [id number]., 01/16/2020 22:06 Performed By: #### C BCDF #### [address] [place] [address] EMPLOYED IN HEALTHCARE? No Normal [facility] Comment on above: Order Comment: ERIKA POE DETECTED COVID TO PAUL OLMSTEAD [id number]., 01/16/2020 22:06 Performed By: #### C BCDF #### [place] [address] FIRST COVID NASAL SWAB TEST? Unknown Normal [facility] Comment on above: Order Comment: ERIKA POE DETECTED COVID TO PAUL OLMSTEAD [id number]., 01/16/2020 22:06 Performed By: #### C BCDF #### [address] [place] [address] HOSPITALIZED (OR PLANNED TO BE ADMITTED)? Yes Normal [facility] Comment on above: Order Comment: ERIKA POE DETECTED COVID TO PAUL OLMSTEAD [id number]., 01/16/2020 22:06 Performed By: #### C BCDF #### [facility] [address] [place] [id number] ICU? No Normal [facility] Comment on above: Order Comment: ERIKA POE DETECTED COVID TO PAUL OLMSTEAD [id number]., 01/16/2020 22:06 Performed By: #### C BCDF #### [facility] [address] [place] [id number] REQUIRED FOR PROCEDURE/SURGERY? Unknown Normal [facility] Comment on above: Order Comment: ERIKA POE DETECTED COVID TO PAUL OLMSTEAD [id number]., 01/16/2020 22:06 Performed By: #### C BCDF #### [facility] [address] [place] [id number] RESIDENT IN CONGREGATE CARE SETTING? No Normal [facility] Comment on above: Order Comment: ERIKA POE DETECTED COVID TO PAUL OLMSTEAD [id number]., 01/16/2020 22:06 Performed By: #### C BCDF #### [facility] [address] [place] [id number] SYMPTOMATIC DEFINED BY CDC? No Normal [facility] Comment on above: Order Comment: ERIKA POE DETECTED COVID TO PAUL OLMSTEAD [id number]., 01/16/2020 22:06 Performed By: #### C BCDF #### [facility] [address] [place] [address] Clinical Event Note-Senior Zackery Pineda 01-16-2020 Clinical Event Note-Senior Staffing Note Clinical [...] palpation, no rebound tenderness or guarding, no [place] sign Ext: no c/c/e Skin: tattoos but [...] (confirmed on admission) NOK: Father (Rajeev Dailey): [phone] Electronic Signatures: Blanca Koch (Resident)) (Signed 16-Jan-2020 19:14) Authored: Clinical Event Note Last Updated: 16-Jan-2020 19:14 by Blanca Koch (Resident)) Normal [facility] Covid 19 Resultson 0 Covid 19 Results [...] available, clean hands with an alcohol-based hand refrigerator repairman that contains at least 60% alcohol. Remember [...] 20 seconds or use an alcohol-based hand refrigerator repairman that contains at least 60% alcohol. Avoid touching your face Do not permit visitors who do not have an essential need to be in your home. Mask when caring for these individuals. Household members caring for a COVID-19 positive patient should consider self-quarantine for 14 days. If symptoms develop, testing for COVID-19 should be considered.. Revised 7.28.20 Electronic Signatures: Polly Matias (ADMIN) (Signature pending) Authored Last Updated: 16-Jan-2020 12:47 by NEVAEH [employer] (ADMIN) Normal [facility] D-DIMER, NON VTEon 0 Fibrin D-dimer FEU IA (Bld) [Mass/Vol] 1276 ng/mL FEU Abnormal = 500 [facility] Comment on above: Result Comment: THE D-DIMER ASSAY IS REPORTED IN NG/ML FIBRINOGEN EQUIVALENT UNITS (FEU). THE RESULTS OF THIS ASSAY SHOULD NOT BE USED FOR THE EXCLUSION OF DEEP VEIN THROMBOSIS AND/OR PULMONARY EMBOLISM. Performed By: #### C BC #### [facility] [address] [place] [address] EMR ADDONon 01-16-2020 ADDON CONFIRMATION REQUEST REC'D Normal [facility] Comment on above: Performed By: #### E MRAD #### NO LOCATION NEEDED LACTATEon 01-16-2020 Lactate [Moles/Vol] 3.4 mmol/L High 0.4 - 2.0 [facility] Comment on above: Result Comment: Kalyn puncture immediately after or during the administration of Metamizole may lead to falsely low results. Testing should be performed immediately prior to Metamizole dosing. Performed By: #### A LC #### [facility] [address] [place] [address] LIPASEon 01-16-2020 Lipase [Catalytic activity/Vol] 89 U/L High 9 - 82 [facility] Comment on above: Result Comment: Kalyn puncture immediately after or during the administration of Metamizole may lead to falsely low results. Testing should be performed immediately prior to Metamizole dosing. C-nesxty-c-benzoquinone imine (metabolite of Acetaminophen) will generate erroneously low results in samples for patients that have taken toxic doses of acetaminophen. Performed By: #### A LC #### [facility] [address] [place] [address] Provider Note - ED v2on 12-25 Provider [...] SIGNS: T PRBP SpO2O2(LPM) %FiO2 Method 16-Jan-2020 12:50:[id number]/68 96 room air, no respiratory support 16-Jan-2020 10:15:[id number]/80 98 room air, no respiratory support CLINICAL [...] Signs, Clinical Impression, Attestation, Chart Review, Scores Elba Monteiro) (Signed 19-Jan-2020 23:11) Authored: PMH, Attestation, Chart Review Co-Signer: ED Notes, Attestation, Chart Review Last Updated: 19-Jan-2020 23:11 by Elba Monteiro) References: 1. Data Referenced From Triage - ED 16-Jan-2020 10:15 Normal [facility] Risk Screen - Adult Emergenc yon 01-16-2020 Risk Screen - Adult Emergency Preferred Language: Preferred Language: Preferred Language for Discussing Health Care (patient/designee)Eli stewart Advanced Directives: Advance Directive/DNRno Family Violence Adult: [...] an injured patient at a Trauma Center ([facility]/[place] /[place]): no Electronic Signatures: Sophie Sebastian (RN) (Signed 16-Jan-2020 11:20) Authored: Preferred Language, Advanced Directives, Family Violence Adult, Learning Assessment (Patient), Learning Assessment (Other Learner), Pressure Injury/TB/Substance, Pressure Injury, CAGE Last Updated: 16-Jan-2020 11:20 by Sophie Sebastian (RN) Normal [facility] SEDIMENTATION RATE, ERYTHROC YTEon 01-16-2020 SEDIMENTATION RATE, ERYTHROCYTE 6 mm/h Normal 0 - 15 [facility] Comment on above: Performed By: #### C OAGS #### [facility] [address] [place] [address] TH CHEST 1 VIEWon 01-16-2020 TH CHEST 1 VIEW Patient Name: TAPAN DAILEY STUDY: Chest, single portable AP view. INDICATION: covid-19 pt need admission cxr for b/l. COMPARISON: None ACCESSION NUMBER(S): [id number] ORDERING CLINICIAN: BLANCA KOCH FINDINGS: The cardiac silhouette size is within normal limits. There is no focal consolidation, edema or pneumothorax. No sizeable pleural effusion. No acute osseous abnormality. IMPRESSION: No acute cardiopulmonary process. Electronically signed by: MIRZA PETERSON MD Normal [facility] Triage - EDon 01-16-2020 Triage - ED [...] BMI (kg/m2): 20.946 Calculated BSA (m2) 1.93 [place] Coma Scale: Best Eye Response: (E4) spontaneous Best Motor Response: (M6) obeys commands Best Verbal Response: (V5) oriented [place] Score: 15 Cough lasting greater than 3 [...] Medical History, Active Electronic Signatures: Manjit Chavira (GREG) (Signed 16-Jan-2020 10:17) Authored: Quick Triage, Risk Screens, Pain, Chart Review, Scores, Past Medical History Last Updated: 16-Jan-2020 10:17 by Manjit Chavira) Normal [facility] BD CT ABDOMEN AND PELVIS W I V CONTRASTon 01-14-[address] ABDOMEN AND PELVIS W IV CONTRAST Patient Name: TAPAN DAILEY STUDY: CT abdomen and pelvis without contrast. INDICATION: epigastric/ right quadrant pain. elevated LFTs and lipase, Lie Flat: Yes. COMPARISON: None ACCESSION NUMBER(S): [id number] ORDERING CLINICIAN: HELENA RICHARD TECHNIQUE: Axial images [...] Electronically signed by: STEVEN RAMIREZ MD Normal [facility] CBC AND DIFFERENTIALon 01-13 % AUTOMATED IMMATURE GRAN 0.4 % Normal 0.0 - 0.9 [facility] Comment on above: Result Comment: [place] Granulocyte Count (IG) includes promyelocytes, myelocytes and metamyelocytes but does not include bands. Percent differential counts (%) should be interpreted in the context of the absolute cell counts (cells/L). Performed By: #### C BCDF #### [facility] [address] [place] [address] Basophils (Bld) [#/Vol] 0.07 10*3/uL Normal 0.00 - 0.1 0 [facility] Comment on above: Performed By: #### C BCDF #### [facility] [address] [place] [address] Basophils/100 WBC (Bld) 1.0 % Normal 0.0 - 2.0 [facility] Comment on above: Performed By: #### C BCDF #### [facility] [address] [place] [address] Eosinophils (Bld) [#/Vol] 0.04 10*3/uL Normal 0.00 - 0.70 [facility] Comment on above: Performed By: #### C BCDF #### [facility] [address] [place] [address] Eosinophils/100 WBC (Bld) 0.6 % Normal 0.0 - 6.0 [facility] Comment on above: Performed By: #### C BCDF #### [facility] [address] [place] [address] Erythrocyte distribution width (RBC) [Ratio] 12.3 % Normal 11.5 - 14.5 [facility] Comment on above: Performed By: #### C BCDF #### [facility] [address] [place] [address] Hematocrit (Bld) [Volume fraction] 49.0 % Normal 41.0 - 52.0 [facility] Comment on above: Performed By: #### C BCDF #### [facility] [address] [place] [address] Hemoglobin (Bld) [Mass/Vol] 17.6 g/dL High 13.5 - 17.5 [facility] Comment on above: Performed By: #### C BCDF #### [facility] [address] [place] [address] Lymphocytes (Bld) [#/Vol] 2.66 10*3/uL Normal 1.20 - 4.80 [facility] Comment on above: Performed By: #### C BCDF #### [facility] [address] [place] [address] Lymphocytes/100 WBC (Bld) 38.9 % Normal 13.0 - 44.0 [facility] Comment on above: Performed By: #### C BCDF #### [facility] [address] [place] [address] MCHC (RBC) [Mass/Vol] 35.9 g/dL Normal 32.0 - 36.0 [facility] Comment on above: Performed By: #### C BCDF #### [facility] [address] [place] [address] MCV (RBC) [Entitic vol] 96 fL Normal 80 - 100 [facility] Comment on above: Performed By: #### C BCDF #### [facility] [address] [place] [address] Monocytes (Bld) [#/Vol] 0.61 10*3/uL Normal 0.10 - 1.0 0 [facility] Comment on above: Performed By: #### C BCDF #### [facility] [address] [place] [address] Monocytes/100 WBC (Bld) 8.9 % Normal 2.0 - 10.0 [facility] Comment on above: Performed By: #### C BCDF #### [facility] [address] [place] [address] Neutrophils (Bld) [#/Vol] 3.43 10*3/uL Normal 1.20 - 7.70 [facility] Comment on above: Performed By: #### C BCDF #### [facility] [address] [place] [address] Neutrophils/100 WBC (Bld) 50.2 % Normal 40.0 - 80.0 [facility] Comment on above: Performed By: #### C BCDF #### [facility] [address] [place] [address] Nucleated RBC/100 WBC (Bld) [Ratio] 0.0 /100 WBC Normal 0.0-0.0 [facility] Comment on above: Performed By: #### C BCDF #### [facility] [address] [place] [address] Platelets (Bld) [#/Vol] 141 10*3/uL Low 150 - 450 [facility] Comment on above: Performed By: #### C BCDF #### [facility] [address] [place] [address] RBC (Bld) [#/Vol] 5.12 x10E12/L Normal 4.50 - 5.90 [facility] Comment on above: Performed By: #### C BCDF #### [facility] [address] [place] [address] WBC (Bld) [#/Vol] 6.8 10*3/uL Normal 4.4 - 11.3 [facility] Comment on above: Performed By: #### C BCDF #### [facility] [address] [place] [address] COMPREHENSIVE PANELon 2019 Albumin [Mass/Vol] 4.4 g/dL Normal 3.4 - 5.0 [facility] Comment on above: Performed By: #### V TA #### [facility] [address] [place], [place] [id number] ALP [Catalytic activity/Vol] 150 U/L High 33 - 120 [facility] Comment on above: Performed By: #### V TA #### [facility] [address] [place], [place] [id number] ALT [Catalytic activity/Vol] 126 U/L High 10 - 52 [facility] Comment on above: Result Comment: Hue ents treated with Sulfasalazine may generate falsely decreased results for ALT. Performed By: #### V TA #### [facility] [address] [place], [place] [id number] Anion gap [Moles/Vol] 19 mmol/L Normal 10 - 20 [facility] Comment on above: Performed By: #### V TA #### [facility] [address] [place], [place] [id number] AST [Catalytic activity/Vol] 413 U/L High 9 - 39 [facility] Comment on above: Performed By: #### V TA #### [facility] [address] [place], [place] [id number] Bilirubin [Mass/Vol] 2.9 mg/dL High 0.0 - 1.2 [facility] Comment on above: Performed By: #### V TA #### [facility] [address] [place], [place] [id number] Calcium [Mass/Vol] 9.5 mg/dL Normal 8.6 - 10.6 [facility] Comment on above: Performed By: #### V TA #### [facility] [place] [address] [place], [place] [id number] Chloride [Moles/Vol] 101 mmol/L Normal 98 - 107 [facility] Comment on above: Performed By: #### V TA #### [facility] [address] [place], [place] [id number] Creatinine [Mass/Vol] 0.61 mg/dL Normal 0.50 - 1.30 [facility] Comment on above: Performed By: #### V TA #### [facility] [address] [place], [place] [id number] GFR- AM. >60 Normal >60 [facility] Comment on above: Result Comment: CALC ULATIONS OF ESTIMATED GFR ARE PERFORMED USING THE MDRD STUDY EQUATION FOR THE IDMS-TRACEABLE CREATININE METHODS. CLIN CHEM 2007;53:766-72 Performed By: #### V TA #### [facility] [address] [place], [place] [id number] GFR-NON AM. >60 Normal >60 [facility] Comment on above: Performed By: #### V TA #### [facility] [address] [place], [place] [id number] Glucose [Mass/Vol] 96 mg/dL Normal 74 - 99 [facility] Comment on above: Performed By: #### V TA #### [facility] [address] [place], [place] [id number] HCO3 (Bld) [Moles/Vol] 26 mmol/L Normal 21 - 32 [facility] Comment on above: Performed By: #### V TA #### [facility] [address] [place], [place] [id number] Potassium [Moles/Vol] 3.5 mmol/L Normal 3.5 - 5.3 [facility] Comment on above: Performed By: #### V TA #### [facility] [address] [place], [place] [id number] Protein [Mass/Vol] 8.1 g/dL Normal 6.4 - 8.2 [facility] Comment on above: Performed By: #### V TA #### [facility] [address] [place], [place] [id number] Sodium [Moles/Vol] 142 mmol/L Normal 136 - 145 [facility] Comment on above: Performed By: #### V TA #### [facility] [address] [place], [place] [id number] Urea nitrogen [Mass/Vol] 6 mg/dL Normal 6 - 23 [facility] Comment on above: Performed By: #### V TA #### [facility] [address] [place], [place] [id number] LIPASEon 01-14-2020 Lipase [Catalytic activity/Vol] 121 U/L High 9 - 82 [facility] Comment on above: Result Comment: Kalyn puncture immediately after or during the administration of Metamizole may lead to falsely low results. Testing should be performed immediately prior to Metamizole dosing. O-ygjbsr-d-benzoquinone imine (metabolite of Acetaminophen) will generate erroneously low results in samples for patients that have taken toxic doses of acetaminophen. Performed By: #### L IPAS #### [facility] [address] [place] [address] PT/INRon 01-14-2020 INR Coag (PPP) [Relative time] 1.0 {INR} Normal 0.9 - 1.1 [facility] Comment on above: Performed By: #### P TINR #### [facility] [address] [place] [address] PT Coag (PPP) [Time] 11.1 s Normal 10.1 - 13.3 [facility] Comment on above: Performed By: #### P TINR #### [facility] [address] [place] [address] Provider Note - ED v2on 12-25 Provider [...] dictated by speech recognition. Minor errors in shoe lacer may be present. Please call if any [...] SIGNS: T PRBP SpO2O2(LPM) %FiO2 Method 14-Jan-2020 18:56:[id number] 96 14-Jan-2020 16:04:[id number] 97 14-Jan-2020 14:19:[id number] 97 room air, no respiratory support CLINICAL [...] ill patient: no Electronic Signatures: Helena Richard ( (Resident)) (Signed 14-Jan-2020 23:06) Authored: ED Notes, HPI, PMH, Results/Vital Signs, Clinical Impression, Attestation, Chart Review, Scores Jennifer Frances (DO) (Signed 15-Jan-2020 15:05) Authored: Attestation, Chart Review Co-Signer: ED Notes, PMH, Results/Vital Signs, Clinical Impression, Attestation, Chart Review, Scores Last Updated: 15-Jan-2020 15:05 by Jennifer Frances (DO) References: 1. Data Referenced From Triage - ED 14-Jan-2020 14:19 Normal [facility] Risk Screen - Adult Emergenc yon 01-14-2020 Risk Screen - Adult Emergency Preferred Language: Preferred Language: Preferred Language for Discussing Health Care (patient/designee)Eli stewart Advanced Directives: Advance Directive/DNRno Family Violence Adult: [...] an injured patient at a Trauma Center ([facility]/[place] /[place]): no Electronic Signatures: Ara Ramirez (RN) (Signed 14-Jan-2020 15:46) Authored: Preferred Language, Advanced Directives, Family Violence Adult, Learning Assessment (Patient), Learning Assessment (Other Learner), Pressure Injury/TB/Substance, Pressure Injury, CAGE Last Updated: 14-Jan-2020 15:46 by Ara Ramirez (GREG) Normal [facility] Triage - EDon 01-14-2020 Triage - ED Chart Review: ARRIVAL INFORMATION Mode of Arrival: private vehicle CHIEF COMPLAINT TAPAN DAILEY is a Male patient with a chief complaint of abdominal pain. Onset of the Complaint: 11-Jan-2020 Other Complaints: Reports Hx of hiatal hernia [...] BMI (kg/m2): 20.364 Calculated BSA (m2) 1.90 [place] Coma Scale: Best Eye Response: (E4) spontaneous Best Motor Response: (M6) obeys commands Best Verbal Response: (V5) oriented [place] Score: 15 Cough lasting greater than 3 [...] Past Medical History, Active Electronic Signatures: Era Owusu (GREG) (Signed 14-Jan-2020 14:22) Authored: Quick Triage, Risk Screens, Pain, Chart Review, Scores, Past Medical History Last Updated: 14-Jan-2020 14:22 by Era Owusu (GREG) Normal [facility] US ABD COMPLETEon 01-14-2020 US ABD COMPLETE Patient Name: TAPAN DAILEY STUDY: US ABD COMP; 01/14/2020 6:36 pm INDICATION: 39 y/o M with epigastric/ right quadrant pain. elevated LFTs and lipase. COMPARISON: None. ACCESSION NUMBER(S): [id number] ORDERING CLINICIAN: HELENA RICHARD TECHNIQUE: Multiple grayscale [...] kidney. Electronically signed by: PAO PRABHAKAR MD [facility] Vital Signs Date Time Vital Sign Value Performing Clinician Jennifer manzo 10-10-2024 09:35-0400 Body temperature 98.1 [degF] Dr. Luis Carnes MD Work Phone: [facility] 10-10-2024 09:35-0400 Diastolic blood pressure 83 mm[Hg] Dr. Luis Carnes MD Work Phone: [facility] 10-10-2024 09:35-0400 Heart rate 100 /min Dr. Luis Carnes MD Work Phone: [facility] 10-10-2024 09:35-0400 Respiratory rate 16 /min Dr. Luis Carnes MD Work Phone: [facility] 10-10-2024 09:35-0400 SaO2% (BldA) [Mass fraction] 98 % Dr. Luis Carnes MD Work Phone: [facility] 10-10-2024 09:35-0400 Systolic blood pressure 114 mm[Hg] Dr. Luis Carnes MD Work Phone: [facility] 10-05-2024 18:44-0400 Body height 185.[address] Luis Carnes MD Work Phone: 0(625)605-593847 [place] [address] 10-05-2024 18:44-0400 Body mass index (BMI) [Ratio] 22.3 kg/m2 Dr. Luis Carnes MD Work Phone: 3(798)811-055347 [place] [address] 10-05-2024 18:44-0400 Body weight 76.[address] Luis Carnes MD Work Phone: 6(026)048-972847 [place] [address] 10-05-2024 18:08-0400 Body temperature 98.1 [degF] Dr. Luis Carnes MD Work Phone: 4(253)137-006847 [place] [address] 10-05-2024 18:08-0400 Diastolic blood pressure 84 mm[Hg] Dr. Luis Carnes MD Work Phone: 6(653)737-635647 [place] [address] 10-05-2024 18:08-0400 Heart rate 99 /min Dr. Luis Carnes MD Work Phone: 9(330)756-264447 [place] [address] 10-05-2024 18:08-0400 Respiratory rate 18 /min Dr. Luis Carnes MD Work Phone: 7(563)993-784347 [place] [address] 10-05-2024 18:08-0400 SaO2% (BldA) [Mass fraction] 99 % Dr. Luis Carnes MD Work Phone: 6(654)922-695547 [place] [address] 10-05-2024 18:08-0400 Systolic blood pressure 126 mm[Hg] Dr. Luis Carnes MD Work Phone: 3(306)965-132847 [place] [address] 10-05-2024 16:50-0400 Body height 185.[address] Luis Carnes MD Work Phone: 0(249)677-590247 [place] [address] 10-05-2024 16:50-0400 Body mass index (BMI) [Ratio] 22.8 kg/m2 Dr. Luis Carnes MD Work Phone: 3(265)091-768247 [place] [address] 10-05-2024 16:50-0400 Body weight 78.[address] Luis Carnes MD Work Phone: 4(191)395-855947 [place] [address] 06-11-2024 20:54-0400 Body temperature 97.5 [degF] Dr. Luis Carnes MD Work Phone: 5(634)796-095047 [place] [address] 06-11-2024 20:54-0400 Diastolic blood pressure 65 mm[Hg] Dr. Luis Carnes MD Work Phone: 1(930)583-261047 [place] [address] 06-11-2024 20:54-0400 Heart rate 79 /min Dr. Luis Carnes MD Work Phone: 0(990)772-509847 [place] [address] 06-11-2024 20:54-0400 Respiratory rate 16 /min Dr. Luis Carnes MD Work Phone: 9(356)853-034447 [place] [address] 06-11-2024 20:54-0400 SaO2% (BldA) [Mass fraction] 99 % Dr. Luis Carnes MD Work Phone: 2(974)860-222847 [place] [address] 06-11-2024 20:54-0400 Systolic blood pressure 134 mm[Hg] Dr. Luis Carnes MD Work Phone: 1(641)948-998447 [place] [address] 06-11-2024 18:27-0400 Body height 185.[address] Luis Carnes MD Work Phone: 3(817)013-140547 [place] [address] 06-11-2024 18:27-0400 Body mass index (BMI) [Ratio] 22.3 kg/m2 Dr. Luis Carnes MD Work Phone: 9(703)834-265547 [place] [address] 06-11-2024 18:27-0400 Body weight 76.[address] Luis Carnes MD Work Phone: 6(068)533-544447 [place] [address] 04-17-2024 20:25-0500 Body temperature 98 [degF] Dr. Luis Carnes MD Work Phone: 5(900)621-709047 [place] [address] 04-17-2024 20:25-0500 Diastolic blood pressure 89 mm[Hg] Dr. Luis Carnes MD Work Phone: 1(488)843-456447 [place] [address] 04-17-2024 20:25-0500 Heart rate 78 /min Dr. Luis Carnes MD Work Phone: 2(323)789-567847 [place] [address] 04-17-2024 20:25-0500 Respiratory rate 16 /min Dr. Luis Carnes MD Work Phone: 4(896)141-630747 [place] [address] 04-17-2024 20:25-0500 SaO2% (BldA) [Mass fraction] 99 % Dr. Luis Carnes MD Work Phone: 4(054)306-710847 [place] [address] 04-17-2024 20:25-0500 Systolic blood pressure 133 mm[Hg] Dr. Luis Carnes MD Work Phone: 0(255)057-503447 [place] [address] 04-17-2024 18:40-0500 Body mass index (BMI) [Ratio] 22.6 kg/m2 Dr. Luis Carnes MD Work Phone: 0(107)307-036347 [place] [address] 04-17-2024 18:40-0500 Body weight 77.[address] Luis Carnes MD Work Phone: 4(402)912-468447 [place] [address] 04-12-2024 16:45-0500 Body temperature 98.2 [degF] Dr. Luis Carnes MD Work Phone: 9(525)177-109747 [place] [address] 04-12-2024 16:45-0500 Diastolic blood pressure 76 mm[Hg] Dr. Luis Carnes MD Work Phone: 9(937)098-121947 [place] [address] 04-12-2024 16:45-0500 Heart rate 72 /min Dr. Luis Carnes MD Work Phone: 4(377)675-151947 [place] [address] 04-12-2024 16:45-0500 Respiratory rate 16 /min Dr. Luis Carnes MD Work Phone: 6(522)751-291447 [place] [address] 04-12-2024 16:45-0500 SaO2% (BldA) [Mass fraction] 100 % Dr. Luis Carnes MD Work Phone: 8(317)206-690747 [place] [address] 04-12-2024 16:45-0500 Systolic blood pressure 119 mm[Hg] Dr. Luis Carnes MD Work Phone: 4(320)206-390947 [place] [address] 04-12-2024 12:35-0500 Body mass index (BMI) [Ratio] 22.4 kg/m2 Dr. Luis Carnes MD Work Phone: 9(897)778-046947 [place] [address] 04-12-2024 12:35-0500 Body weight 77.[address] Luis Carnes MD Work Phone: 0(439)977-531447 [place] [address] 03-05-2024 08:41-0500 Body temperature 97.4 [degF] Dr. Luis Carnes MD Work Phone: 9(784)896-057347 [place] [address] 03-05-2024 08:41-0500 Diastolic blood pressure 76 mm[Hg] Dr. Luis Carnes MD Work Phone: 3(152)313-662047 [place] [address] 03-05-2024 08:41-0500 Heart rate 96 /min Dr. Luis Carnes MD Work Phone: 2(615)997-030847 [place] [address] 03-05-2024 08:41-0500 Respiratory rate 16 /min Dr. Luis Carnes MD Work Phone: 1(465)179-878147 [place] [address] 03-05-2024 08:41-0500 SaO2% (BldA) [Mass fraction] 94 % Dr. Luis Carnes MD Work Phone: 5(714)806-601847 [place] [address] 03-05-2024 08:41-0500 Systolic blood pressure 100 mm[Hg] Dr. Luis Carnes MD Work Phone: 3(789)188-700547 [place] [address] 03-02-2024 16:33-0500 Body mass index (BMI) [Ratio] 21.2 kg/m2 Dr. Luis Carnes MD Work Phone: 7(478)640-583747 [place] [address] 03-02-2024 16:33-0500 Body weight 72.[address] Luis Carnes MD Work Phone: 1(765)952-418847 [place] [address] 01-02-2022 02:37-0500 Body temperature 98.2 [degF] Dr. Luis Carnes Work Phone: 8(000)860-757047 [place] [address] Work Phone: 01-02-2022 02:37-0500 Diastolic blood pressure 67 mm[Hg] Dr. Luis Carnes Work Phone: 5(687)003-336270 [place] [address] Work Phone: 01-02-2022 02:37-0500 Heart rate 126 /min Dr. Luis Carnes Work Phone: 8(757)392-866870 [place] [address] Work Phone: 01-02-2022 02:37-0500 Respiratory rate 18 /min Dr. Luis Carnes Work Phone: [facility] Work Phone: 01-02-2022 02:37-0500 SaO2% (BldA) [Mass fraction] 95 % Dr. Luis Carnes Work Phone: [facility] Work Phone: 01-02-2022 02:37-0500 Systolic blood pressure 111 mm[Hg] Dr. Luis Carnes Work Phone: [facility] Work Phone: 01-02-2022 00:40-0500 Body height 185.[address] Luis Carnes Work Phone: [facility] Work Phone: 01-02-2022 00:40-0500 Body mass index (BMI) [Ratio] 21.4 kg/m2 Dr. Luis Carnes Work Phone: [facility] Work Phone: 01-02-2022 00:40-0500 Body weight 73.[address] Luis Carnes Work Phone: [facility] Work Phone: 12-03-2021 15:48-0400 Body mass index (BMI) [Ratio] 21.4 kg/m2 Dr. Luis Carnes Work Phone: [facility] Work Phone: 12-03-2021 15:48-0400 Body temperature 98.5 [degF] Dr. Luis Carnes Work Phone: [facility] Work Phone: 12-03-2021 15:48-0400 Body weight 73.[address] Luis Carnes Work Phone: [facility] Work Phone: 12-03-2021 15:48-0400 Diastolic blood pressure 77 mm[Hg] Dr. Luis Carnes Work Phone: [facility] Work Phone: 12-03-2021 15:48-0400 Heart rate 118 /min Dr. Luis Carnes Work Phone: [facility] Work Phone: 12-03-2021 15:48-0400 Respiratory rate 15 /min Dr. Luis Carnes Work Phone: [facility] Work Phone: 12-03-2021 15:48-0400 SaO2% (BldA) [Mass fraction] 96 % Dr. Luis Carnes Work Phone: [facility] Work Phone: 12-03-2021 15:48-0400 Systolic blood pressure 113 mm[Hg] Dr. Luis Carnes Work Phone: [facility] Work Phone: 11-22-2021 08:34-0400 Body temperature 97.8 [degF] Dr. Luis Carnes Work Phone: [facility] Work Phone: 11-22-2021 08:34-0400 Diastolic blood pressure 75 mm[Hg] Dr. Luis Carnes Work Phone: [facility] Work Phone: 11-22-2021 08:34-0400 Heart rate 109 /min Dr. Luis Carnes Work Phone: [facility] Work Phone: 11-22-2021 08:34-0400 Respiratory rate 16 /min Dr. Luis Carnes Work Phone: [facility] Work Phone: 11-22-2021 08:34-0400 SaO2% (BldA) [Mass fraction] 97 % Dr. Luis Carnes Work Phone: [facility] Work Phone: 11-22-2021 08:34-0400 Systolic blood pressure 102 mm[Hg] Dr. Luis Carnes Work Phone: [facility] Work Phone: 11-19-2021 21:52-0400 Body height 185.[address] Luis Carnes Work Phone: [facility] Work Phone: 11-19-2021 21:52-0400 Body mass index (BMI) [Ratio] 20.4 kg/m2 Dr. Luis Carnes Work Phone: [facility] Work Phone: 11-19-2021 21:52-0400 Body weight 70.[address] Luis Carnes Work Phone: [facility] Work Phone: 11-19-2021 21:21-0400 Body temperature 97.1 [degF] Dr. Luis Carnes Work Phone: [facility] Work Phone: 11-19-2021 21:21-0400 Diastolic blood pressure 79 mm[Hg] Dr. Luis Carnes Work Phone: [facility] Work Phone: 11-19-2021 21:21-0400 Heart rate 108 /min Dr. Luis Carnes Work Phone: [facility] Work Phone: 11-19-2021 21:21-0400 Respiratory rate 17 /min Dr. Luis Carnes Work Phone: [facility] Work Phone: 11-19-2021 21:21-0400 SaO2% (BldA) [Mass fraction] 100 % Dr. Luis Carnes Work Phone: [facility] Work Phone: 11-19-2021 21:21-0400 Systolic blood pressure 112 mm[Hg] Dr. Luis Carnes Work Phone: [facility] Work Phone: 11-19-2021 19:28-0400 Body height 185.[address] Luis Carnes Work Phone: [facility] Work Phone: 11-19-2021 19:28-0400 Body mass index (BMI) [Ratio] 20.4 kg/m2 Dr. Luis Carnes Work Phone: [facility] Work Phone: 11-19-2021 19:28-0400 Body weight 70.[address] Luis Carnes Work Phone: [facility] Work Phone: 11-15-2021 19:48-0400 Diastolic blood pressure 79 mm[Hg] Dr. Luis Carnes Work Phone: [facility] Work Phone: 11-15-2021 19:48-0400 Heart rate 112 /min Dr. Luis Carnes Work Phone: [facility] Work Phone: 11-15-2021 19:48-0400 Respiratory rate 18 /min Dr. Luis Carnes Work Phone: [facility] Work Phone: 11-15-2021 19:48-0400 SaO2% (BldA) [Mass fraction] 94 % Dr. Luis Carnes Work Phone: [facility] Work Phone: 11-15-2021 19:48-0400 Systolic blood pressure 118 mm[Hg] Dr. Luis Carnes Work Phone: [facility] Work Phone: 11-15-2021 15:54-0400 Body mass index (BMI) [Ratio] 20.4 kg/m2 Dr. Luis Carnes Work Phone: [facility] Work Phone: 11-15-2021 15:54-0400 Body temperature 98 [degF] Dr. Luis Carnes Work Phone: [facility] Work Phone: 11-15-2021 15:54-0400 Body weight 70.[address] Luis Carnes Work Phone: [facility] Work Phone: 11-15-2021 14:28-0400 Body height 185.4 cm Luis Carnes MD Work Phone: [facility] 11-15-2021 14:28-0400 Body weight 69.76 kg Luis Carnes MD Work Phone: [facility] 11-15-2021 14:28-0400 Diastolic blood pressure 80 mm[Hg] Luis Carnes MD Work Phone: [facility] 11-15-2021 14:28-0400 Heart rate 130 /min Luis Carnes MD Work Phone: [facility] 11-15-2021 14:28-0400 SaO2% (BldA) [Mass fraction] 99 % Luis Carnes MD Work Phone: [facility] 11-15-2021 14:28-0400 Systolic blood pressure 112 mm[Hg] Luis Carnes MD Work Phone: [facility] 11-12-2021 00:36-0400 Heart rate 113 /min Dr. Luis Carnes Work Phone: [facility] Work Phone: 11-11-2021 19:11-0400 Body height 185.[address] Luis Carnes Work Phone: [facility] Work Phone: 11-11-2021 19:11-0400 Body mass index (BMI) [Ratio] 21.7 kg/m2 Dr. Luis Carnes Work Phone: [facility] Work Phone: 11-11-2021 19:11-0400 Body temperature 98.4 [degF] Dr. Luis Carnes Work Phone: [facility] Work Phone: 11-11-2021 19:11-0400 Body weight 74.[address] Luis Carnes Work Phone: [facility] Work Phone: 11-11-2021 19:11-0400 Diastolic blood pressure 86 mm[Hg] Dr. Luis Carnes Work Phone: [facility] Work Phone: 11-11-2021 19:11-0400 Respiratory rate 18 /min Dr. Luis Carnes Work Phone: [facility] Work Phone: 11-11-2021 19:11-0400 SaO2% (BldA) [Mass fraction] 98 % Dr. Luis Carnes Work Phone: [facility] Work Phone: 11-11-2021 19:11-0400 Systolic blood pressure 108 mm[Hg] Dr. Luis Carnes Work Phone: [facility] Work Phone: 09-16-2021 13:31-0400 Body temperature 98.6 [degF] Maico Paredes MD Work Phone: [facility] 09-16-2021 13:31-0400 Body weight 70.67 kg Maico Paredes MD Work Phone: [facility] 09-16-2021 13:31-0400 Diastolic blood pressure 84 mm[Hg] Maico Paredes MD Work Phone: [facility] 09-16-2021 13:31-0400 Heart rate 120 /min Maico Paredes MD Work Phone: [facility] 09-16-2021 13:31-0400 Respiratory rate 21 /min Maico Paredes MD Work Phone: [facility] 09-16-2021 13:31-0400 SaO2% (BldA) [Mass fraction] 96 % Maico Paredes MD Work Phone: [facility] 09-16-2021 13:31-0400 Systolic blood pressure 122 mm[Hg] Maico Paredes MD Work Phone: [facility] 09-03-2021 15:34-0400 Body mass index (BMI) [Ratio] 20 kg/m2 Dr. Luis Carnes Work Phone: [facility] Work Phone: 09-03-2021 15:34-0400 Body temperature 98.9 [degF] Dr. Luis Carnes Work Phone: [facility] Work Phone: 09-03-2021 15:34-0400 Body weight [address] Luis Carnes Work Phone: [facility] Work Phone: 09-03-2021 15:34-0400 Diastolic blood pressure 74 mm[Hg] Dr. Luis Carnes Work Phone: [facility] Work Phone: 09-03-2021 15:34-0400 Heart rate 102 /min Dr. Luis Carnes Work Phone: [facility] Work Phone: 09-03-2021 15:34-0400 Respiratory rate 14 /min Dr. Luis Carnes Work Phone: [facility] Work Phone: 09-03-2021 15:34-0400 SaO2% (BldA) [Mass fraction] 96 % Dr. Luis Carnes Work Phone: [facility] Work Phone: 09-03-2021 15:34-0400 Systolic blood pressure 108 mm[Hg] Dr. Luis Carnes Work Phone: [facility] Work Phone: 08-14-2021 15:23-0400 Diastolic blood pressure 86 mm[Hg] Dr. Luis Carnes Work Phone: [facility] Work Phone: 08-14-2021 15:23-0400 Heart rate 88 /min Dr. Luis Carnes Work Phone: [facility] Work Phone: 08-14-2021 15:23-0400 Respiratory rate 18 /min Dr. Luis Carnes Work Phone: [facility] Work Phone: 08-14-2021 15:23-0400 Systolic blood pressure 123 mm[Hg] Dr. Luis Carnes Work Phone: [facility] Work Phone: 08-14-2021 10:06-0400 Body height 185.[address] Luis Carnes Work Phone: [facility] Work Phone: 08-14-2021 10:06-0400 Body mass index (BMI) [Ratio] 21.7 kg/m2 Dr. Luis Carnes Work Phone: [facility] Work Phone: 08-14-2021 10:06-0400 Body temperature 97.7 [degF] Dr. Luis Carnes Work Phone: [facility] Work Phone: 08-14-2021 10:06-0400 Body weight 74.[address] Luis Carnes Work Phone: [facility] Work Phone: 08-14-2021 10:06-0400 SaO2% (BldA) [Mass fraction] 98 % Dr. Luis Carnes Work Phone: [facility] Work Phone: 05-21-2021 08:25-0400 Body temperature 97.7 [degF] Dr. Luis Carnes Work Phone: [facility] Work Phone: 05-21-2021 08:25-0400 Diastolic blood pressure 63 mm[Hg] Dr. Luis Carnes Work Phone: [facility] Work Phone: 05-21-2021 08:25-0400 Heart rate 91 /min Dr. Luis Carnes Work Phone: [facility] Work Phone: 05-21-2021 08:25-0400 Respiratory rate 16 /min Dr. Luis Carnes Work Phone: [facility] Work Phone: 05-21-2021 08:25-0400 SaO2% (BldA) [Mass fraction] 94 % Dr. Luis Carnes Work Phone: [facility] Work Phone: 05-21-2021 08:25-0400 Systolic blood pressure 89 mm[Hg] Dr. Luis Carnes Work Phone: [facility] Work Phone: 05-21-2021 03:33-0400 Body temperature 98.1 [degF] Dr. Luis Carnes Work Phone: [facility] Work Phone: 05-21-2021 03:33-0400 Diastolic blood pressure 64 mm[Hg] Dr. Luis Carnes Work Phone: [facility] Work Phone: 05-21-2021 03:33-0400 Heart rate 93 /min Dr. Luis Carnes Work Phone: [facility] Work Phone: 05-21-2021 03:33-0400 Respiratory rate 18 /min Dr. Luis Carnes Work Phone: [facility] Work Phone: 05-21-2021 03:33-0400 SaO2% (BldA) [Mass fraction] 95 % Dr. Luis Carnes Work Phone: [facility] Work Phone: 05-21-2021 03:33-0400 Systolic blood pressure 93 mm[Hg] Dr. Luis Carnes Work Phone: [facility] Work Phone: 05-16-2021 11:57-0400 Body height 185.[address] Luis Carnes Work Phone: [facility] Work Phone: 05-16-2021 11:57-0400 Body weight 74.[address] Luis Carnes Work Phone: [facility] Work Phone: 05-16-2021 04:37-0400 Inhaled oxygen flow rate 2 L/min Dr. Luis Carnes Work Phone: [facility] Work Phone: 05-16-2021 00:57-0400 Body mass index (BMI) [Ratio] 21.7 kg/m2 Dr. Luis Carnes Work Phone: [facility] Work Phone: 04-30-2021 07:43-0500 Body temperature 98.6 [degF] Dr. Luis Carnes Work Phone: [facility] Work Phone: 04-30-2021 07:43-0500 Diastolic blood pressure 74 mm[Hg] Dr. Luis Carnes Work Phone: [facility] Work Phone: 04-30-2021 07:43-0500 Heart rate 95 /min Dr. Luis Carnes Work Phone: [facility] Work Phone: 04-30-2021 07:43-0500 Respiratory rate 14 /min Dr. Luis Carnes Work Phone: [facility] Work Phone: 04-30-2021 07:43-0500 SaO2% (BldA) [Mass fraction] 95 % Dr. Luis Carnes Work Phone: [facility] Work Phone: 04-30-2021 07:43-0500 Systolic blood pressure 94 mm[Hg] Dr. Luis Carnes Work Phone: [facility] Work Phone: 04-30-2021 06:43-0500 Body temperature 98.6 [degF] Dr. Luis Carnes Work Phone: [facility] Work Phone: 04-30-2021 06:43-0500 Diastolic blood pressure 74 mm[Hg] Dr. Luis Carnes Work Phone: [facility] Work Phone: 04-30-2021 06:43-0500 Heart rate 95 /min Dr. Luis Carnes Work Phone: [facility] Work Phone: 04-30-2021 06:43-0500 Respiratory rate 14 /min Dr. Luis Carnes Work Phone: [facility] Work Phone: 04-30-2021 06:43-0500 SaO2% (BldA) [Mass fraction] 95 % Dr. Luis Carnes Work Phone: [facility] Work Phone: 04-30-2021 06:43-0500 Systolic blood pressure 94 mm[Hg] Dr. Luis Carnes Work Phone: [facility] Work Phone: 04-26-2021 19:53-0500 Body mass index (BMI) [Ratio] 21.8 kg/m2 Dr. Luis Carnes Work Phone: [facility] Work Phone: 04-26-2021 19:53-0500 Body weight 73.[address] Luis Carnes Work Phone: [facility] Work Phone: 04-26-2021 18:53-0500 Body mass index (BMI) [Ratio] 21.8 kg/m2 Dr. Luis Carnes Work Phone: [facility] Work Phone: 04-26-2021 18:53-0500 Body weight 73.[address] Luis Carnes Work Phone: [facility] Work Phone: 04-08-2021 17:11-0500 Diastolic blood pressure 84 mm[Hg] Dr. Luis Carnes Work Phone: [facility] Work Phone: 04-08-2021 17:11-0500 Heart rate 95 /min Dr. Luis Carnes Work Phone: [facility] [facility] Work Phone: 04-08-2021 17:11-0500 Respiratory rate 16 /min Dr. Luis Carnes Work Phone: [facility] Work Phone: 04-08-2021 17:11-0500 SaO2% (BldA) [Mass fraction] 99 % Dr. Luis Carnes Work Phone: [facility] Work Phone: 04-08-2021 17:11-0500 Systolic blood pressure 127 mm[Hg] Dr. Luis Carnes Work Phone: [facility] Work Phone: 04-08-2021 12:42-0500 Body mass index (BMI) [Ratio] 19.8 kg/m2 Dr. Luis Carnes Work Phone: [facility] Work Phone: 04-08-2021 12:42-0500 Body temperature 96.9 [degF] Dr. Luis Carnes Work Phone: [facility] Work Phone: 04-08-2021 12:42-0500 Body weight 68.[address] Luis Carnes Work Phone: [facility] Work Phone: Encounters Encounter Date Encounter Type Care Provider Facility Start: 10-09-2024 Non-patient / Non-visit Dr. Martinez Phelan [facility] Work Phone: Start: 10-08-2024 Non-patient / Non-visit Dr. Martinez Phelan [facility] Work Phone: Start: 10-07-2024 Non-patient / Non-visit Dr. Randy Jacob [facility] Work Phone: Start: 10-06-2024 Non-patient / Non-visit Dr. Randy Jacob [facility] Work Phone: Start: 10-05-2024 End: 10-10-2024 Evaluation and management of inpatient Dr. Mecca Vargas MD -Medical Surgical 3 Work Phone: Start: 10-05-20[facility] Start: 10-05-2024 Non-patient / Non-visit Dr. Mecca Vargas MD [facility] Work Phone: Start: 06-11-2024 End: 06-11-2024 Emergency department patient visit Dr. Luis Carnes MD Work Phone: -Emergency Department Work Phone: Start: 04-17-2024 End: 04-17-2024 Emergency department patient visit Dr. Rajinder Mensah DO -Emergency Department Work Phone: Start: 04-12-2024 End: 04-12-2024 Emergency department patient visit Dr. Kain De Jesus MD -Emergency Department Work Phone: Start: 03-05-2024 Non-patient / Non-visit Dr. Tej Machuca MD -[facility] Work Phone: Start: 03-04-2024 Non-patient / Non-visit Dr. Tej Machuca MD [facility] Work Phone: Start: 03-03-2024 Non-patient / Non-visit Dr. Tej Machuca MD -[facility] Work Phone: Start: 03-02-2024 ambulatory [facility] Start: 03-02-2024 End: 03-05-2024 Evaluation and management of inpatient Dr. Tej Machuca MD -Medical Surgical 3 Work Phone: Start: 02-19-2023 End: 02-19-2023 ambulatory LUIS CARNES Facility:[facility] Start: 01-02-2022 Non-patient / Non-visit Dr. Luis Carnes Work Phone: [facility] Start: 01-02-2022 Evaluation and management of inpatient Dr. Luis Carnes Work Phone: [facility]-Intensive Care Unit Start: 12-03-2021 End: 12-03-[address] Luis Carnes Work Phone: [facility] Start: 12-03-[address] Roosevelt Carnes Work Phone: [facility] Start: 11-22-2021 Non-patient / Non-visit Dr. Luis Carnes Work Phone: [facility] Start: 11-21-2021 Non-patient / Non-visit Dr. Luis Carnes Work Phone: [facility] Start: 11-20-2021 Non-patient / Non-visit Dr. Luis Carnes Work Phone: [facility] Start: 11-19-2021 Non-patient / Non-visit Dr. Luis Carnes Work Phone: [facility] Start: 11-19-2021 End: 11-22-2021 Evaluation and management of inpatient Dr. Luis Carnes Work Phone: [facility]-Medical Surgical 3 Start: 11-15-2021 End: 11-15-2021 Emergency department patient visit Dr. Luis Carnes Work Phone: [facility]Emer[facility] Start: 11-15-2021 End: 11-15-2021 Patient encounter procedure Luis Carnes MD Work Phone: [facility] Comment on above: Chest pain, unspecif ied type (Primary Dx); Other acute pulmonary embolism without acute cor pulmonale (HCC); ETOHism (HCC); SOB (shortness of breath); Elevated liver enzymes; Chronic pain syndrome Start: 11-12-2021 Telephone encounter Luis Carnes MD Work Phone: [facility] Comment on above: Patient Update Start: 11-11-2021 End: 11-12-2021 Emergency department patient visit Dr. Luis Carnes Work Phone: [facility]-Emergency Department Start: 09-18-2021 End: 09-18-2021 ambulatory Luis Carnes MD Work Phone: [facility] Comment on above: COVID-19 (Primary Dx ); ETOHism (HCC); Other acute pulmonary embolism without acute cor pulmonale (HCC) Start: 09-18-2021 End: 09-18-2021 Telemedicine consultation with patient Luis Carnes MD Work Phone: [facility] Start: 09-17-2021 ambulatory Selene Wharton RN NURSE O N CALL Comment on above: Information Opened In Error Start: 09-17-2021 Telephone encounter Luis Carnes MD Work Phone: [facility] Comment on above: Covid19 Concern Start: 09-16-2021 End: 09-16-2021 Patient encounter procedure Maico Paredes MD Work Phone: [facility] Comment on above: Acute viral syndrome (Primary Dx) Start: 09-03-2021 End: 09-03-[address] Luis Carnes Work Phone: [facility] Start: 08-21-2021 End: 08-21-[address] Luis Carnes Work Phone: [facility] Start: 08-14-2021 Non-patient / Non-visit Dr. Luis Carnes Work Phone: [facility] Start: 08-14-2021 End: 08-14-2021 Emergency department patient visit Dr. Luis Carnes Work Phone: [facility]-Emergency Department Start: 07-26-2021 End: 07-26-[address] Luis Carnes Work Phone: [facility] Start: 05-21-2021 Non-patient / Non-visit Dr. Luis Carnes Work Phone: [facility] Start: 05-20-2021 Non-patient / Non-visit Dr. Luis Carnes Work Phone: [facility] Start: 05-19-2021 Non-patient / Non-visit Dr. Luis Carnes Work Phone: [facility] Start: 05-18-2021 Non-patient / Non-visit Dr. Luis Carnes Work Phone: [facility] Start: 05-17-2021 Non-patient / Non-visit Dr. Luis Carnes Work Phone: [facility] Start: 05-16-2021 Non-patient / Non-visit Dr. Luis Carnes Work Phone: [facility] Start: 05-15-2021 Non-patient / Non-visit Dr. Luis Carnes Work Phone: [facility] Start: 05-15-2021 End: 05-21-2021 Evaluation and management of inpatient [facility] Start: 04-29-2021 Non-patient / Non-visit Dr. Luis Carnes Work Phone: [facility] Start: 2021 Non-patient / Non-visit Dr. Luis Carnes Work Phone: [facility] Start: 04-27-2021 Non-patient / Non-visit Dr. Luis Carnes Work Phone: [facility] Start: 04-26-2021 Non-patient / Non-visit Dr. Luis Carnes Work Phone: [facility] Start: 04-26-2021 End: 04-30-2021 Evaluation and management of inpatient Dr. Luis Carnes Work Phone: [facility] Surgical 3 Start: 04-08-2021 End: 04-08-2021 Emergency department patient visit Dr. Luis Carnes Work Phone: [facility]-Emergency Department Procedures Date Procedure Procedure Detail Performing Clinician Start: 10-08-[address] Roosevelt Carnes MD Work Phone: Start: 10-06-2024 Serum inorganic phosphate measurement Dr. Luis Carnes MD Work Phone: Start: 10-05-[address] Roosevelt Carnes MD Work Phone: Start: 10-05-2024 Methadone measurement, urine Dr. Luis Carnes MD Work Phone: Start: 06-11-2024 X-ray [...] Plain X-ray of tibia and fibula Dr. Jonny Carnes Work Phone: Start: 08-14-[address] Luis Carnes Work Phone: Start: 04-26-2021 Computed tomography of abdomen and pelvis with contrast Dr. Luis Carnes Work Phone: Start: 04-08-2021 Computed tomography of abdomen and pelvis with intravenous contrast Dr. Luis Carnes Work Phone: Plan of Treatment Date Care Activity Detail Author Start: 10-10-2024 Patient discharge [facility] Start: 10-06-2024 Prothrombin time [facility] Start: 10-05-2024 Following clinical pathway protocol [facility] Start: 10-05-2024 Assessment of risk o f venous thromboembolism [facility] Start: 10-05-2024 Inhalation therapy procedure [facility] Start: 10-05-2024 Provision of activit y privileges [facility] Start: 10-05-2024 [facility] Start: 10-05-2024 Admission procedure [facility] Start: 10-05-2024 Verification routine [facility] Start: 10-05-2024 Hospital admission, emergency, from emergency room, medical nature [facility] Start: 10-05-2024 [facility] Start: 06-11-2024 [facility] Start: 04-17-2024 [facility] Start: 04-17-2024 [facility] Start: 04-12-2024 [facility] Start: 04-12-2024 [facility] Start: 03-05-2024 Patient discharge [facility] Start: 03-02-2024 Following clinical pathway protocol [facility] Start: 03-02-2024 Assessment of risk o f venous thromboembolism [facility] Start: 03-02-2024 Inhalation therapy procedure [facility] Start: 03-02-2024 Introduction of urin xavier catheter [facility] Start: 03-02-2024 Notification of physician [facility] Start: 03-02-2024 Provision of activit y privileges [facility] Start: 03-02-2024 Referral to service [facility] Start: 03-02-2024 Vital signs measurements [facility] Start: 03-02-2024 [facility] Start: 03-02-2024 Admission procedure [facility] Start: 01-02-2022 Admission procedure [facility] Work Phone: Start: 01-02-2022 Consultation [facility] Work Phone: Start: 11-22-2021 Patient discharge [facility] Work Phone: Start: 11-19-2021 Following clinical pathway protocol [facility] Work Phone: Start: 11-19-2021 Assessment of risk o f venous thromboembolism [facility] Work Phone: Start: 11-19-2021 Insertion of cathete r into peripheral vein [facility] Work Phone: Start: 11-19-2021 Oxygen therapy [facility] Work Phone: Start: 11-19-2021 Providing care accor ding to standard [facility] Work Phone: Start: 11-19-2021 Referral to service [facility] Work Phone: Start: 11-19-2021 Tobacco use cessatio n education [facility] Work Phone: Start: 11-19-2021 [facility] Work Phone: Start: 11-19-2021 Verification routine [facility] Work Phone: Start: 11-19-2021 Admission procedure [facility] Work Phone: Start: 11-19-2021 [facility] Work Phone: Start: 11-11-2021 [facility] Work Phone: Start: 10-24-2021 Influenza vaccination INFLUENZA (#1) [facility] Start: 09-16-2021 End: 09-30-2021 SARS-CoV-2 (COVID-19) RNA [Presence] in Respiratory specimen by ULI with probe detection 2019 CORONAVIRUS Microbiology Routine Acute viral syndrome Expected: 09/16/2021, Expires: 09/30/2021 [facility] Work Phone: Comment on above: Expected: 09/16/2021 , Expires: 09/30/2021 Start: 07-26-2021 Acute hepatitis 2000 panel - Serum [facility] Work Phone: Start: 07-26-2021 [id number]. tumor marker [Units/volume] in Serum or Plasma [facility] Work Phone: Start: 07-26-2021 Angiotensin converti ng enzyme [Enzymatic activity/volume] in Serum or Plasma [facility] Work Phone: Start: 07-26-2021 Ceruloplasmin [Mass/volume] in Serum or Plasma [facility] Work Phone: Start: 07-26-2021 Copper [Moles/volume ] in Serum or Plasma [facility] Work Phone: Start: 07-26-2021 Haptoglobin [Mass/vo lume] in Serum or Plasma [facility] Work Phone: Start: 07-26-2021 Hepatitis B virus genotype [Identifier] in Serum or Plasma by ULI with probe detection [facility] Work Phone: Start: 07-26-2021 Hepatitis C virus RN A assay [facility] Work Phone: Start: 07-26-2021 Smooth muscle Ab [Presence] in Serum [facility] Work Phone: Start: 07-26-2021 [facility] Work Phone: Start: 05-30-2021 LIPID SCREEN LIPID SCREEN [facility] Start: 05-21-2021 Patient discharge [facility] Work Phone: Start: 05-21-2021 Patient discharge [facility] Work Phone: Start: 05-16-2021 Following clinical pathway protocol [facility] Work Phone: Start: 05-16-2021 Assessment of risk o f venous thromboembolism [facility] Work Phone: Start: 05-16-2021 Notification of physician [facility] Work Phone: Start: 05-16-2021 Vital signs measurements [facility] Work Phone: Start: 05-16-2021 [facility] Work Phone: Start: 05-16-2021 Patient referral to dietitian [facility] Work Phone: Start: 05-15-2021 Admission procedure [facility] Work Phone: Start: 04-30-2021 Patient discharge [facility] Work Phone: Start: 04-26-2021 [facility] Work Phone: Start: 04-26-2021 Assessment of risk o f venous thromboembolism [facility] Work Phone: Start: 04-26-2021 Notification of physician [facility] Work Phone: Start: 04-26-2021 Vital signs measurements [facility] Work Phone: Start: 04-26-2021 [facility] Work Phone: Start: 04-26-2021 Following clinical pathway protocol [facility] Work Phone: Start: 04-26-2021 Admission procedure [facility] Work Phone: Start: 04-29-1999 Urine microalbumin profile DTAP,TDAP,TD (1 - Tdap) [facility] Start: 1998 HIV SCREENING HIV SCREENING [facility] Start: 1992 Adult depression screening assessment DEPRESSION SCREENING [facility] Start: 1986 PNEUMOCOCCAL (1 - PCV) PNEUMOCOCCAL (1 - PCV) [facility] Start: 1980 COVID-19 VACCINE (#1) COVID-19 VACCI NE (#1) [facility] Start: 1980 HEPATITIS B (1 of 3 - 3-dose series) HEPATITIS B (1 of 3 - 3-dose series) [facility] Amphetamines [Presen ce] in Urine by Screen method >1000 ng/mL [facility] Benzodiazepine measurement, urine [facility] CBC W Auto Different ial panel - Blood [facility] Work Phone: Cocaine measurement, urine [facility] D-dimer assay, quantitative [facility] Work Phone: End: 11-15-2022 ECG COMPLETE ECG COMPLETE ECG Routine Chest pain, unspecified type 1 Occurrences starting 11/15/2021 until 11/15/2022 [facility] Work Phone: Comment on above: 1 Occurrences starti ng 11/15/2021 until 11/15/2022 fentaNYL [Presence] in Urine by Screen method [facility] INR in Blood by Coagulation assay [facility] Work Phone: Methadone measuremen t, urine [facility] Partial thromboplast in time, activated [facility] Work Phone: Patient Education [facility] Work Phone: Patient referral [facility] Work Phone: Phencyclidine [Prese nce] in Urine [facility] Prothrombin time [facility] Work Phone: Urine cannabinoid measurement [facility] Urine opiate measurement [facility] Immunizations Immunization Date Immunization Notes Care Provider Fa denae 11-15-2011 influenza virus vaccine, unspecified formulation Maico Paredes MD Work Phone: [facility] 12-14-2010 influenza virus vaccine, unspecified formulation Maico Paredes MD Work Phone: [facility] Work Phone: 12-12-2009 influenza virus vaccine, unspecified formulation Maico Paredes MD Work Phone: [facility] Work Phone: 02-05-2009 novel [id number], all formulations Maico Paredes MD Work Phone: [facility] Work Phone: 12-29-2006 influenza virus vaccine, unspecified formulation Maico Paredes MD Work Phone: [facility] Work Phone: 12-22-2005 influenza virus vaccine, unspecified formulation Maico Paredes MD Work Phone: [facility] Work Phone: 01-02-2005 influenza virus vaccine, unspecified formulation Maico Paredes MD Work Phone: [facility] Work Phone: Payers Date Payer Category Payer Unknown [id number] 2024 Unknown [id number] 2024 Self-pay [id number] 2024 Unknown [id number] 2022 Medicaid [id number] 2021 Medicaid [place] [id number] 2021-Present [phone] [address] [place] [address] Medicaid [id number] [place] MEDICAID [id number] 2021-Present [phone] [address] [place] [address] Medicaid [id number] Unknown SELF PAY INSURANCE [id number] Unknown ANTHEM [id number] Unknown [id number] Unknown [id number] Unknown [id number] Unknown [id number] Unknown [id number] Unknown [id number] Unknown [id number] Unknown [id number] Unknown [id number] Unknown [id number] Unknown [id number] Unknown [id number] Unknown [id number] Unknown [id number] Unknown [id number] Social History Date Type Detail Facility Start: 05-16-2021 End: 01-02-2022 Tobacco smoking status NHIS Unknown if ever smoked [facility] Work Phone: Start: 09-27-2018 - [facility] Start: 12-07-2018 Cigarettes [facility] Start: 1980 Sex Assigned At Male [facility] Start: 11-15-2021 Tobacco smoking stat us MOIS Smokes tobacco daily [facility] History of tobacco use Cigarette Smoker C [facility] Start: 09-16-2021 End: 11-15-2021 Alcohol intake Current drinker of alcohol (finding) [facility] Start: 09-16-2021 End: 11-15-2021 Alcohol intake [facility] Start: 05-31-2019 History SDOH Alcohol Frequency 5 [facility] Start: 05-31-2019 History SDOH Alcohol Std Drinks 1 [facility] Start: 1980 Sex Assigned At Not on file [facility] Start: 09-06-2021 End: 11-15-2021 Exposure to SARS-CoV-2 (event) Not sure [facility] Work Phone: Start: 11-15-2021 Tobacco use and exposure Former smokeless tobacco user [facility] Start: 06-11-2024 End: 10-08-2024 Tobacco smoking status NHIS Current Heavy tobacco smoker [facility] Start: 06-11-2024 Sex Male (finding) [facility] Goals Date Patient Goal Desired Activity /State Functional Status Date Assessment Result Facility 10-10-2024 Functional status Up ad donal [facility] Work Phone: 03-05-2024 Functional status Ambulates;Bathroom Priv ilege [facility] Work Phone: 11-22-2021 Functional status Ambulates;Up ad donal [facility] Work Phone: 05-21-2021 Functional status Up ad donal;Bathroom Priv [facility] Work Phone: 04-30-2021 Functional status Up ad donal;Bathroom Priv [facility] Work Phone: Mental Status Date Assessment Result Facility 10-10-2024 Cognitive function Voice/Name [facility] Work Phone: 04-12-2024 Cognitive function Voice/Name [facility] Work Phone: 03-05-2024 Cognitive function Voice/Name [facility] Work Phone: 11-22-2021 Cognitive function Appropriate;Cooperativ e [facility] Work Phone: 11-15-2021 Cognitive function Level Of Cons ciousness Awake;Alert;Appropriate;Follow s Commands [facility] Work Phone: 11-11-2021 Cognitive function Level Of Cons ciousness Awake;Alert;Appropriate;Follow s Commands [facility] Work Phone: 05-20-2021 Cognitive function Voice/Name [facility] Work Phone: 2021 Cognitive function Voice/Name [facility] Work Phone: Clinical Notes 03-12-2020 to 10-10-2024 Note Date & Type Note Facility 10-10-2024 Discharge summary Note Date/Time October 10, 2024 10:48am [facility] Medical Records Department [address] [place] [address] Instructions for Home/Discharge Instructions 10/10/24 1046 MR#: [id number] Acct: [id number] Name: TAPAN DAILEY Rep #:[id number] : 1980 44 From: Martinez Phelan DO PCP: Dr. Luis Carnes MD Status:ADM I N Discharge Instructions DC O2, CPAP, BIPAP needs Home O2 Discharge instructions: No Dressing / Incision Discharge Activity: Return to Normal Activity Weight Bearing Status: Full weight bearing Follow Up Care Test Results: Test results from this visit will be discussed in further detail at your follow-up appointment, if applicable. Discharge Plan Admission Admit Date/Time: 10/05/24 17:59 Primary Reason for Your Visit: alcohol detox Attending Provider: Martinez Phelan Primary Care Provider: Luis Carnes Consulting Providers: Mecca Vargas; Randy Jacob Discharge Orders/Prescriptions Prescriptions: No Action NK Referrals / Follow Up: Luis Carnes MD [Primary Care Provider] - Disposition Disposition (needs filled in before D/C Order can be placed): Home, Self Care 10/10/24 1048<Electronically signed by Martinez Phelan DO>Martinez Phelan DO CC: Dr. Randy Jacob DO; Dr. Mecca Vargas MD; Dr. Luis Carnes MD ~ Signed [facility] Work Phone: 1(865) 305-335608-18-2025 Discharge summary [facility] Medical Records Department [address] [place] [id number] Instructions for Home/Discharge Instructions 10/10/24 1046 MR#: [id number] Acct: [id number] Name: TAPAN DAILEY Rep #:[id number] : 1980 44 From: Martinez Phelan DO PCP: Dr. Luis Carnes MD Status:ADM I N Discharge Instructions DC O2, CPAP, BIPAP needs Home O2 Discharge instructions: No Dressing / Incision Discharge Activity: Return to Normal Activity Weight Bearing Status: Full weight bearing Follow Up Care Test Results: Test results from this visit will be discussed in further detail at your follow- up appointment, if applicable. Discharge Plan Admission Admit Date/Time: 10/05/24 17:59 Primary Reason for Your Visit: alcohol detox Attending Provider: Martinez Phealn Primary Care Provider: Luis Carnes Consulting Providers: Mecca Vargas; Randy Jacob Discharge Orders/Prescriptions Prescriptions: No Action NK Referrals / Follow Up: Luis Carnes MD [Primary Care Provider] - Disposition Disposition (needs filled in before D/C Order can be placed): Home, Self Care 10/10/24 1048Martinez Phelan DO CC: Dr. Randy Jacob DO; Dr. Mecca Vargas MD; Dr. Luis Carnes MD ~ Signed [facility]08-18-2025 [facility] Medical Records Department [address] [place] [address] Discharge Summary 10/10/24 1048 MR#: [id number] Acct: [id number] Name: TAPAN DAILEY Rep #: [id number] : 1980 44 From: Martinez Phelan DO PCP: Dr. Luis Carnes MD Status:DIS IN [place] [facility] [place] Providers Date of Admission: 10/05/24 Date of Discharge: 10/10/24 Primary Care Physician: Dr. Luis Carnes MD Reason For Visit: ALCOHOL DETOX Diagnosis Discharge Diagnosis (1) Alcohol dependence: Status: Acute Code(s): F10.20 - Alcohol dependence, uncomplicated Plan 1. Acute alcohol withdrawal-patient will remain on his present medications, it appears from the medical record that the patient will be doing an inpatient detox program. #2 chronic alcoholism-complicates care, management, recovery, and prognosis, again patient is scheduled to go to an inpatient detox program #3 alcoholic hepatitis-patient's liver enzymes are trending downward, monitor as necessary Total clinical time spent by myself addressing patient's medical issues, reviewing all of his data, and collaborating with patient's care team: 35 minutes Medications at Discharge Home Medications NK 10/05/24 Hospital Course Operations None Procedures None Summary of Care Provided Minutes Spent on Discharge: 30 Hospital Course: This 44-year-old white male was seen in the emergency room at [facility] requesting services for alcohol detox. Patient was admitted to [place] [address] and orders were entered using the alcohol detox order set, patient was seen by addiction psych social worker, during his hospitalization patient had no evidence of DTs and was minimally symptomatic from alcohol withdrawal. Patient was set up to go into an inpatient detox program. On 10/10/2024, patient was seen and examined: On examination he appeared in good health and spirits. Vital signs as documented. Skin warm and dry and without overt rashes. Neck without JVD, neck was supple, trachea midline, thyroid was normal. Lungs clear bilaterally, normal air movement was noted. Heart exam notable for regular rhythm, normal sounds and absence of murmurs, rubs or gallops. Abdomen unremarkable and without evidence of organomegaly, masses, or abdominal aortic enlargement. Bowel sounds are present, abdomen is not distended. Extremities nonedematous, no cyanosis was noted, no clubbing was noted. Neuro: Cranial nerves II through XII are grossly intact, no focal motor deficits were noted, sensation to light touch and pinprick intact, motor exam 5/5 throughout. Psych: Patient is alert and oriented x3, he does not appear anxious or depressed, he does not appear agitated. Patient was felt to be stable for discharge to an inpatient detox facility on 10/10/2024. Weight / BMI Weight Weight: 76.714 kg Body Mass Index (BMI) 22.3 ABG / Lab / Microbiology Data 10/08/24 05:40 10/08/24 05:40 D/C Instructions Weight Bearing Status: Full weight bearing DC O2, CPAP, BIPAP Needs Home O2 Discharge instructions: No Meaningful Use Info Meaningful Use Meaningful Use Diagnoses (Choose all that apply): None applicable Discharge Plan Admission Admit Date/Time: 10/05/24 17:59 Primary Reason for Your Visit: alcohol detox Attending Provider: Martinez Phelan Primary Care Provider: Luis Carnes Consulting Providers: Mecca Vargas; Randy Jacob Discharge Orders/Prescriptions Prescriptions: No Action NK Referrals / Follow Up: Luis Carnes MD [Primary Care Provider] - Disposition Disposition (needs filled in before D/C Order can be placed): Home, Self Care Charges/Coding Visit Charges Inpatient E M: 70376 Disch Hosp 10/12/24 0816 Cosigner Signature (if applicable): CC: Dr. Martinez Phelan DO; [facility]. Luis [facility]es [facility] Progress note Author Martinez Phelan [facility] Note Date/Time October 09, 2024 2: 59pm [facility] Medical Records Department [address] [place] [address] Progress Note - Hospitalist 10/09/24 3477 MR#: [id number] Acct: [id number] Name: TAPAN DAILEY Rep #:[id number] : 1980 44 From: Martinez Phelan DO PCP: Dr. Lusi Carnes MD Status:ADM I N Location: MS3 AV912-7 Reason for Visit Chief Complaint: Requesting EtOH detox Subjective Subjective Patient was seen and examined today, he is walking in the hallway and does not appear to be in any distress. Patient voices no complaints. Objective Data Objective Data Vital Signs: Vital Signs Temp Pulse Resp BP Pulse Ox O2 Del Method 97.9 F 95 16 109/83 H 97 Room Air 10/09/24 09:13 10/09/24 09:13 10/09/24 09:13 10/09/24 09:13 10/09/24 09:13 10/09/24 09:13 Oxygen Delivery Method Room Air Weight: 76.714 kg Body Mass Index (BMI) 22.3 Intake & Output: Intake and Output for Last 24 Hours 10/07/24 10/08/24 10/09/24 23:59 23:59 23:59 Intake Total 1100 / 1100 Balance 1100 / 1100 Lab / Micro Data 10/08/24 05:40 10/08/24 05:40 Physical Exam Const alert, oriented x3, no apparent distress and average body habitus General Appearance: cooperative, well kempt and well developed Orientation / Consciousness: awake, oriented to person, oriented to place and oriented to time HEENT normocephalic, head/scalp atraumatic and moist oral mucous membranes Eyes PERRL, EOMs intact bilaterally and conjunctivae normal Neck supple, no JVD, thyroid normal and no carotid bruits General: trachea midline Resp normal respiratory effort, no retractions, no use of accessory muscles and clearto auscultation bilaterally Auscultation: Negative for rales, rhonchi or wheezes Cardio regular rate, regular rhythm, S1 normal heart sound, S2 normal heart sound, no murmurs, no rub and no gallops GI normal to inspection, nondistended, normoactive bowel sounds, soft to palpation,non-tender and non-distended Extremity no clubbing, cyanosis or edema Skin no rashes or lesions noted General Skin Exam: no breakdown Neuro oriented x3, CN's II-XII intact bilaterally, moves all extremities, no focal motor deficits and no sensory deficits noted Sensorium / Orientation: awake and alert Speech: speech normal Psych affect normal Assessment & Plan Assessment/Plan (1) Alcohol dependence: PLAN: Plan 1. Acute alcohol withdrawal-patient will remain on his present medications, it appears from the medical record that the patient will be doing an inpatient detox program. #2 chronic alcoholism-complicates care, management, recovery, and prognosis, again patient is scheduled to go to an inpatient detox program #3 alcoholic hepatitis-patient's liver enzymes are trending downward, monitor asnecessary Total clinical time spent by myself addressing patient's medical issues, reviewing all of his data, and collaborating with patient's care team: 35 minutes Charges/Coding Visit Charges Inpatient E&M: 05282 Subs Hosp L2 10/09/24 9189 <Electronically signed by Martinez Phelan DO> Cosigner Signature (if applicable): CC: ~ Signed [facility] Work Phone: 1(582) 363-613308-17-2025 Progress note [facility] Medical Records Department [address] [place] [address] Progress Note - Hospitalist 10/09/24 8203 MR#: [id number] Acct: [id number] Name: TAPAN DAILEY Rep #:[id number] : 1980 44 From: Martinez Phelan DO PCP: Dr. Luis Carnes MD Status:ADM I N Location: [place] [address]-1 Reason for Visit Chief Complaint: Requesting EtOH detox Subjective Subjective Patient was seen and examined today, he is walking in the hallway and does not appear to be in any distress. Patient voices no complaints. Objective Data Objective Data Vital Signs: Vital Signs Temp Pulse Resp BP Pulse Ox O2 Del Method 97.9 F 95 16 109/83 H 97 Room Air 10/09/24 09:13 10/09/24 09:13 10/09/24 09:13 10/09/24 09:13 10/09/24 09:13 10/09/24 09:13 Oxygen Delivery Method Room Air Weight: 76.714 kg Body Mass Index (BMI) 22.3 Intake & Output: Intake and Output for Last 24 Hours 10/07/24 10/08/24 10/09/24 23:59 23:59 23:59 Intake Total 1100 / 1100 Balance 1100 / 1100 Lab / Micro Data 10/08/24 05:40 10/08/24 05:40 Physical Exam Const alert, oriented x3, no apparent distress and average body habitus General Appearance: cooperative, well kempt and well developed Orientation / Consciousness: awake, oriented to person, oriented to place and oriented to time HEENT normocephalic, head/scalp atraumatic and moist oral mucous membranes Eyes PERRL, EOMs intact bilaterally and conjunctivae normal Neck supple, no JVD, thyroid normal and no carotid bruits General: trachea midline Resp normal respiratory effort, no retractions, no use of accessory muscles and clearto auscultation bilaterally Auscultation: Negative for rales, rhonchi or wheezes Cardio regular rate, regular rhythm, S1 normal heart sound, S2 normal heart sound, no murmurs, no rub and no gallops GI normal to inspection, nondistended, normoactive bowel sounds, soft to palpation,non-tender and non-distended Extremity no clubbing, cyanosis or edema Skin no rashes or lesions noted General Skin Exam: no breakdown Neuro oriented x3, CN's II-XII intact bilaterally, moves all extremities, no focal motor deficits and no sensory deficits noted Sensorium / Orientation: awake and alert Speech: speech normal Psych affect normal Assessment & Plan Assessment/Plan (1) Alcohol dependence: PLAN: Plan 1. Acute alcohol withdrawal-patient will remain on his present medications, it appears from the medical record that the patient will be doing an inpatient detox program. #2 chronic alcoholism-complicates care, management, recovery, and prognosis, again patient is scheduled to go to an inpatient detox program #3 alcoholic hepatitis-patient's liver enzymes are trending downward, monitor asnecessary Total clinical time spent by myself addressing patient's medical issues, reviewing all of his data,and collaborating with patient's care team: 35 minutes Charges/Coding Visit Charges Inpatient E&M: 86308 Subs Hosp L2 10/09/24 2989 Cosigner Signature (if applicable): CC: ~ Signed [facility]08-16-2025 Progress note Author Martinez Phelan [facility] Note Date/Time October 08, 2024 3: 56pm [facility] Medical Records Department [address] [place] [address] Progress Note - Hospitalist 10/08/24 1531 MR#: [id number] Acct: [id number] Name: TAPAN DAILEY Rep #:[id number] : 1980 44 From: Martinez Phelan DO PCP: Dr. Luis Carnes MD Status:ADM I N Location: MS3 PV852-0 Reason for Visit Chief Complaint: Requesting EtOH detox Subjective Subjective Patient was seen and examined today, he does not appear anxious or tremorous. Objective Data Objective Data Vital Signs: Vital Signs Temp Pulse Resp BP Pulse Ox O2 Del Method 97.8 F 95 16 109/81 H 98 Room Air 10/08/24 14:40 10/08/24 14:40 10/08/24 14:40 10/08/24 14:40 10/08/24 14:40 10/08/24 14:40 Oxygen Delivery Method Room Air Weight: 76.714 kg Body Mass Index (BMI) 22.3 Intake & Output: Intake and Output for Last 24 Hours 10/06/24 10/07/24 10/08/24 23:59 23:59 23:59 Intake Total 480 / 480 1100 / 1100 Output Total 100 / 100 Balance 380 / 380 1100 / 1100 Lab / Micro Data 10/08/24 05:40 10/08/24 05:40 Labs: Laboratory Results - last 24 hr 10/08/24 05:40: WBC 7.9, RBC 3.84 L, Hgb 13.7, Hct 39.2 L, MCV 102.1 H, MCH 35.7H, MCHC 34.9, RDW Std Deviation 68.9 H, RDW Coeff of Margaret 18.2 H, Plt Count 179, MPV 10.6, Sodium 137, Potassium 3.9, Chloride 100, Carbon Dioxide 26.0, Anion Gap 11, BUN 7, Creatinine 0.77, Estim Creat Clear Calc 132.84, Est GFR (MDRD) Non-Af 113, BUN/Creatinine Ratio 8.5 L, Glucose 95, Calcium 8.8, Total Bilirubin0.74, AST 82 H, ALT 81 H, Alkaline Phosphatase 109, Total Protein 6.4, Albumin 3.6, Globulin 2.7, Albumin/Globulin Ratio 1.3 Physical Exam Const alert, oriented x3 and no apparent distress General Appearance: cooperative, well kempt and well developed Orientation / Consciousness: awake, oriented to person, oriented to place and oriented to time HEENT normocephalic, head/scalp atraumatic and moist oral mucous membranes Eyes PERRL, EOMs intact bilaterally and conjunctivae normal Neck supple, no JVD, thyroid normal and no carotid bruits General: trachea midline Resp normal respiratory effort, no retractions, no use of accessory muscles and clearto auscultation bilaterally Auscultation: Negative for rales, rhonchi or wheezes Cardio regular rate, regular rhythm, S1 normal heart sound, S2 normal heart sound, no murmurs, no rub and no gallops GI normal to inspection, nondistended, normoactive bowel sounds, soft to palpation,non-tender and non-distended Extremity no clubbing, cyanosis or edema Skin no rashes or lesions noted General Skin Exam: no breakdown Neuro oriented x3, CN's II-XII intact bilaterally, moves all extremities, no focal motor deficits and no sensory deficits noted Sensorium / Orientation: awake and alert Speech: speech normal Psych affect normal Assessment & Plan Assessment/Plan (1) Alcohol dependence: PLAN: Plan 1. Acute alcohol withdrawal-patient will remain on his present medications, it appears from the medical record that the patient will be doing an inpatient detox program. #2 chronic alcoholism-complicates care, management, recovery, and prognosis, again patient is scheduled to go to an inpatient detox program #3 alcoholic hepatitis-patient's liver enzymes are trending downward, monitor asnecessary Total clinical time spent by myself addressing patient's medical issues, reviewing all of his data, and collaborating with patient's care team: 35 minutes Charges/Coding Visit Charges Inpatient E&M: 58230 Subs Hosp L2 10/08/24 1556 <Electronically signed by Martinez Phelan DO> Cosigner Signature (if applicable): CC: ~ Signed [facility] Work Phone: 1([phone]) 264-265108-16-2025 Progress note [facility] Medical Records Department [address] [place] [address] Progress Note - Hospitalist 10/08/24 1531 MR#: [id number] Acct: [id number] Name: TAPAN DAILEY Rep #:[id number] : 1980 44 From: Martinez Phelan DO PCP: Dr. Luis Carnes MD Status:ADM I N Location: [place] [address] Reason for Visit Chief Complaint: Requesting EtOH detox Subjective Subjective Patient was seen and examined today, he does not appear anxious or tremorous. Objective Data Objective Data Vital Signs: Vital Signs Temp Pulse Resp BP Pulse Ox O2 Del Method 97.8 F 95 16 109/81 H 98 Room Air 10/08/24 14:40 10/08/24 14:40 10/08/24 14:40 10/08/24 14:40 10/08/24 14:40 10/08/24 14:40 Oxygen Delivery Method Room Air Weight: 76.714 kg Body Mass Index (BMI) 22.3 Intake & Output: Intake and Output for Last 24 Hours 10/06/24 10/07/24 10/08/24 23:59 23:59 23:59 Intake Total 480 / 480 1100 / 1100 Output Total 100 / 100 Balance 380 / 380 1100 / 1100 Lab / Micro Data 10/08/24 05:40 10/08/24 05:40 Labs: Laboratory Results - last 24 hr 10/08/24 05:40: WBC 7.9, RBC 3.84 L, Hgb 13.7, Hct 39.2 L, MCV 102.1 H, MCH 35.7H, MCHC 34.9, RDW Std Deviation 68.9 H, RDW Coeff of Margaret 18.2 H, Plt Count 179, MPV 10.6, Sodium 137, Potassium 3.9, Chloride 100, Carbon Dioxide 26.0, Anion Gap 11, BUN 7, Creatinine 0.77, Estim Creat Clear Calc 132.84, Est GFR (MDRD) Non-Af 113, BUN/Creatinine Ratio 8.5 L, Glucose 95, Calcium 8.8, Total Bilirubin0.74, AST 82 H, ALT 81 H, Alkaline Phosphatase 109, Total Protein 6.4, Albumin 3.6, Globulin 2.7, Albumin/Globulin Ratio 1.3 Physical Exam Const alert, oriented x3 and no apparent distress General Appearance: cooperative, well kempt and well developed Orientation / Consciousness: awake, oriented to person, oriented to place and oriented to time HEENT normocephalic, head/scalp atraumatic and moist oral mucous membranes Eyes PERRL, EOMs intact bilaterally and conjunctivae normal Neck supple, no JVD, thyroid normal and no carotid bruits General: trachea midline Resp normal respiratory effort, no retractions, no use of accessory muscles and clearto auscultation bilaterally Auscultation: Negative for rales, rhonchi or wheezes Cardio regular rate, regular rhythm, S1 normal heart sound, S2 normal heart sound, no murmurs, no rub and no gallops GI normal to inspection, nondistended, normoactive bowel sounds, soft to palpation,non-tender and non-distended Extremity no clubbing, cyanosis or edema Skin no rashes or lesions noted General Skin Exam: no breakdown Neuro oriented x3, CN's II-XII intact bilaterally, moves all extremities, no focal motor deficits and no sensory deficits noted Sensorium / Orientation: awake and alert Speech: speech normal Psych affect normal Assessment & Plan Assessment/Plan (1) Alcohol dependence: PLAN: Plan 1. Acute alcohol withdrawal-patient will remain on his present medications, it appears from the medical record that the patient will be doing an inpatient detox program. #2 chronic alcoholism-complicates care, management, recovery, and prognosis, again patient is scheduled to go to an inpatient detox program #3 alcoholic hepatitis-patient's liver enzymes are trending downward, monitor asnecessary Total clinical time spent by myself addressing patient's medical issues, reviewing all of his data,and collaborating with patient's care team: 35 minutes Charges/Coding Visit Charges Inpatient E&M: 78458 Subs Hosp L2 10/08/24 1556 Cosigner Signature (if applicable): CC: ~ Signed [facility]08-15-2025 Progress note Author Randy Jacob [facility] Note Date/Time October 07, 2024 2: 54pm [facility] Medical Records Department [address] [place] [address] Progress Note - Hospitalist 10/07/24 1059 MR#: [id number] Acct: [id number] Name: TAPAN ADILEY Rep #:[id number] : 1980 44 From: Randy eubanks DO PCP: Dr. Luis Carnes MD Status:ADM I N Location: [place] [address]-1 Reason for Visit Chief Complaint: Requesting EtOH detox Subjective Subjective Saw patient at bedside this morning. Patient appeared similar to yesterday, wasfatigued appearing but otherwise laying back comfortably in bed and in no acute distress. No new concerns today. Objective Data Objective Data Vital Signs: Vital Signs Temp Pulse Resp BP Pulse Ox O2 Del Method 98.0 F 89 16 113/88 H 96 Room Air 10/07/24 09:15 10/07/24 09:15 10/07/24 09:15 10/07/24 09:15 10/07/24 09:15 10/07/24 09:15 Oxygen Delivery Method Room Air Weight: 76.714 kg Body Mass Index (BMI) 22.3 Intake & Output: Intake and Output for Last 24 Hours 10/05/24 10/06/24 10/07/24 23:59 23:59 23:59 Intake Total 480 / 480 Output Total 100 / 100 Balance 380 / 380 Lab / Micro Data 10/05/24 17:01 10/06/24 05:27 Labs: Laboratory Results - last 24 hr 10/05/24 11:11: Urine Opiates Screen NEGATIVE, U Buprenorphine Qual NEGATIVE, UrOxycodone Screen NEGATIVE, Urine Methadone Screen NEGATIVE, Urine Fentanyl Screen NEGATIVE, Ur Barbiturates Screen PRESUMPTIVE POSITIVE, Ur Phencyclidine Scrn NEGATIVE, Ur Amphetamines Screen NEGATIVE, U Benzodiazepines Scrn NEGATIVE,Urine Cocaine Screen NEGATIVE, U Cannabinoids Screen PRESUMPTIVE POSITIVE Physical Exam Const alert, oriented x3, no apparent distress and average body habitus Constitutional Narrative: Middle-age male, mildly fatigued appearing but otherwise laying back comfortablyin bed, conversing normally, in no acute distress. General Appearance: cooperative and comfortable HEENT normocephalic, head/scalp atraumatic, hearing grossly normal bilaterally, nasal mucous membranes and turbinates normal and moist oral mucous membranes Eyes PERRL, EOMs intact bilaterally and conjunctivae normal Neck full ROM Chest inspection of chest normal Resp normal respiratory effort, normal air movement, no use of accessory muscles and clear to auscultation bilaterally Cardio regular rate, regular rhythm, no murmurs and peripheral pulses 2+ throughout GI normal to inspection, nondistended, normoactive bowel sounds, soft to palpation,non-tender and non-distended Back/Spine normal ROM Extremity normal to inspection, full ROM and no pedal edema Skin no rashes or lesions noted Psych mental status grossly normal Assessment & Plan Assessment/Plan (1) Alcohol dependence: (2) Desire for detoxification: PLAN: Plan Patient is a 44-year-old male who presented to [facility] ED on 10/05/2024 for alcohol detox. 1. Alcohol use disorder with impending withdrawal and desire for detox ? Case management following. Was sober for about 1.5 years, recently started drinking heavily again due to life stressors. Reports drinking 12-18 beers per day plus up to a handle of liquor. Alcohol level 163 on admit. Treating with phenobarbital taper and other as needed medications per alcohol withdrawal orderset with adequate control of withdrawal symptoms. Per addiction medicine, likely planning [facility]. Will be medically ready for discharge over the weekend with tentative plan to discharge there on Tuesday 10/10. 2. Elevated LFTs ? Total bilirubin 1.90, AST 220, ALT 150, alk phos 149 on admit. Improved on hospital day 2. No abdominal pain noted. Suspect secondary to mild alcoholic hepatitis. No further inpatient needs. 3. Suspected GERD ? Patient reported reflux symptoms with frequent morning nausea on admission. Symptoms sounded consistent with GERD. Has had some improvement with initiationof PPI. Continue PPI. 4. Tobacco dependence ? Nicotine patch ordered per patient request. Discussed cessation of discharge. 5. History of VTE ? Provoked DVT after ankle surgery in the past, completed course of Eliquis and has not had recurrence. Okay for prophylactic Lovenox as below. DVT prophylaxis: Lovenox CODE STATUS: Full code, verified Expected disposition: Likely inpatient alcohol treatment on Tuesday 10/10 Total clinical time spent by myself addressing the patient's medical issues, reviewing all the data, and collaborating with patient's care team: 25 minutes. Charges/Coding Visit Charges Inpatient E&M: 95726 Subs Hosp L1 10/07/24 8842 <Electronically signed by Randy Jacob DO> Cosigner Signature (if applicable): CC: ~ Signed [facility] Work Phone: 1(387) 970-442108-15-2025 Progress note [facility] Medical Records Department [address] [place] [address] Progress Note - Hospitalist 10/07/24 1059 MR#: [id number] Acct: [id number] Name: TAPAN DAILEY Rep #:[id number] : 1980 44 From: Randy eubanks DO PCP: Dr. Luis Carnes MD Status:ADM I N Location: [place] [address] Reason for Visit Chief Complaint: Requesting EtOH detox Subjective Subjective Saw patient at bedside this morning. Patient appeared similar to yesterday, wasfatigued appearing but otherwise laying back comfortably in bed and in no acute distress. No new concerns today. Objective Data Objective Data Vital Signs: Vital Signs Temp Pulse Resp BP Pulse Ox O2 Del Method 98.0 F 89 16 113/88 H 96 Room Air 10/07/24 09:15 10/07/24 09:15 10/07/24 09:15 10/07/24 09:15 10/07/24 09:15 10/07/24 09:15 Oxygen Delivery Method Room Air Weight: 76.714 kg Body Mass Index (BMI) 22.3 Intake & Output: Intake and Output for Last 24 Hours 10/05/24 10/06/24 10/07/24 23:59 23:59 23:59 Intake Total 480 / 480 Output Total 100 / 100 Balance 380 / 380 Lab / Micro Data 10/05/24 17:01 10/06/24 05:27 Labs: Laboratory Results - last 24 hr 10/05/24 11:11: Urine Opiates Screen NEGATIVE, U Buprenorphine Qual NEGATIVE, UrOxycodone Screen NEGATIVE, Urine Methadone Screen NEGATIVE, Urine Fentanyl Screen NEGATIVE, Ur Barbiturates Screen PRESUMPTIVE POSITIVE, Ur Phencyclidine Scrn NEGATIVE, Ur Amphetamines Screen NEGATIVE, U BenzodiazepinesScrn NEGATIVE,Urine Cocaine Screen NEGATIVE, U Cannabinoids Screen PRESUMPTIVE POSITIVE Physical Exam Const alert, oriented x3, no apparent distress and average body habitus Constitutional Narrative: Middle-age male, mildly fatigued appearing but otherwise laying back comfortablyin bed, conversing normally, in no acute distress. General Appearance: cooperative and comfortable HEENT normocephalic, head/scalp atraumatic, hearing grossly normal bilaterally, nasal mucous membranes and turbinates normal and moist oral mucous membranes Eyes PERRL, EOMs intact bilaterally and conjunctivae normal Neck full ROM Chest inspection of chest normal Resp normal respiratory effort, normal air movement, no use of accessory muscles and clear to auscultation bilaterally Cardio regular rate, regular rhythm, no murmurs and peripheral pulses 2+ throughout GI normal to inspection, nondistended, normoactive bowel sounds, soft to palpation,non-tender and non-distended Back/Spine normal ROM Extremity normal to inspection, full ROM and no pedal edema Skin no rashes or lesions noted Psych mental status grossly normal Assessment & Plan Assessment/Plan (1) Alcohol dependence: (2) Desire for detoxification: PLAN: Plan Patient is a 44-year-old male who presented to [facility] ED on 10/05/2024 for alcohol detox. 1. Alcohol use disorder with impending withdrawal and desire for detox ? Case management following. Was sober for about 1.5 years, recently started drinking heavily againdue to life stressors. Reports drinking 12-18 beers per day plus up to a handle of liquor. Alcohol level 163 on admit. Treating with phenobarbital taper and other as needed medications per alcohol withdrawal orderset with adequate control of withdrawal symptoms. Per addiction medicine, [facility]. Will be medically ready for discharge over the weekend with tentative plan to discharge there on Tuesday 10/10. 2. Elevated LFTs ? Total bilirubin 1.90, AST 220, ALT 150, alk phos 149 on admit. Improved on hospital day 2. No abdominal pain noted. Suspect secondary to mild alcoholic hepatitis. No further inpatient needs. 3. Suspected GERD ? Patient reported reflux symptoms with frequent morning nausea on admission. Symptoms sounded consistent with GERD. Has had some improvement with initiationof PPI. Continue PPI. 4. Tobacco dependence ? Nicotine patch ordered per patient request. Discussed cessation of discharge. 5. History of VTE ? Provoked DVT after ankle surgery in the past, completed course of Eliquis and has not had recurrence. Okay for prophylactic Lovenox as below. DVT prophylaxis: Lovenox CODE STATUS: Full code, verified Expected disposition: Likely inpatient alcohol treatment on Tuesday 10/10 Total clinical time spent by myself addressing the patient's medical issues, reviewing all the data, and collaborating with patient's care team: 25 minutes. Charges/Coding Visit Charges Inpatient E&M: 83185 Subs Hosp L1 10/07/24 0680 Cosigner Signature (if applicable): CC: ~ Signed [facility]08-14-2025 Progress note Author Randy Jacob [facility] Note Date/Time October 06, 2024 2: 47pm [facility] Medical Records Department [address] [place] [address] Progress Note - Hospitalist 10/06/24 1158 MR#: [id number] Acct: [id number] Name: TAPAN DAILEY Rep #:[id number] : 1980 44 From: Randy eubanks DO PCP: Dr. Luis Carnes MD Status:ADM I N Location: MS3 [id number] Reason for Visit Chief Complaint: Requesting EtOH detox Subjective Subjective Saw patient at bedside this morning. Patient was laying back comfortably in bedand in no acute distress. He did note that he had a headache this morning. Hadbeen given a dose of ibuprofen for this about 10 minutes before I saw him. Otherwise his withdrawal symptoms are improved from yesterday. No other acute concerns this morning. Objective Data Objective Data Vital Signs: Vital Signs Temp Pulse Resp BP Pulse Ox O2 Del Method 98.2 F 70 17 136/78 H 95 Room Air 10/06/24 10:31 10/06/24 10:31 10/06/24 10:31 10/06/24 10:31 10/06/24 10:31 10/06/24 10:31 Oxygen Delivery Method Room Air Weight: 76.714 kg Body Mass Index (BMI) 22.3 Lab / Micro Data 10/05/24 17:01 10/06/24 05:27 Labs: Laboratory Results - last 24 hr 10/05/24 17:01: WBC 10.4, RBC 4.22 L, Hgb 15.2, Hct 41.7, MCV 98.8 H, MCH 36.0 H, MCHC 36.5 H, RDW Std Deviation 65.1 H, RDW Coeff of Margaret 17.8 H, Plt Count 153,MPV 10.5, Immature Gran % (Auto) 1.100 H, Neut % (Auto) 57.5, Lymph % (Auto) 27.1, Barren % (Auto) 12.8 H, Eos % (Auto) 0.9, Baso % (Auto) 0.6, Absolute Neuts (auto) 6.0, Absolute Lymphs (auto) 2.82, Nucleated RBC % 0, Differential CommentSCANNED, Platelet Estimate ADEQUATE, Polychromasia 1+, Anisocytosis 1+, Sodium 134, Potassium 3.7, Chloride 94 L, [...] Albumin/Globulin Ratio 1.2, Ethyl Alcohol 163.0 H 10/06/24 05:27: PT 13.8, INR 1.0, Sodium 135, Potassium 3.5, Chloride 96 L, Carbon Dioxide 26.2, Anion Gap 13, BUN 8, Creatinine 0.78, Estim Creat Clear Calc 131.14, Est GFR (MDRD) Non-Af 113, BUN/Creatinine Ratio 9.8 L, Glucose 118 H, Calcium 9.0, Phosphorus 4.0, Magnesium 1.7, Total Bilirubin 1.44 H, AST 130 H, ALT 114 H, Alkaline Phosphatase 127, Total Protein 6.5, Albumin 3.6, Globulin 2.9, Albumin/Globulin Ratio 1.3 Physical Exam Const alert, oriented x3, no apparent distress and average body habitus Constitutional Narrative: Middle-age male, mildly fatigued appearing but otherwise laying back comfortablyin bed, conversing normally, in no acute distress. General Appearance: cooperative and comfortable HEENT normocephalic, head/scalp atraumatic, hearing grossly normal bilaterally, nasal mucous membranes and turbinates normal and moist oral mucous membranes Eyes PERRL, EOMs intact bilaterally and conjunctivae normal Neck full ROM Chest inspection of chest normal Resp normal respiratory effort, normal air movement, no use of accessory muscles and clear to auscultation bilaterally Cardio regular rate, regular rhythm, no murmurs and peripheral pulses 2+ throughout GI normal to inspection, nondistended, normoactive bowel sounds, soft to palpation,non-tender and non-distended Back/Spine normal ROM Extremity normal to inspection, full ROM and no pedal edema Skin no rashes or lesions noted Psych mental status grossly normal Assessment & Plan Assessment/Plan (1) Alcohol dependence: (2) Desire for detoxification: PLAN: Plan Patient is a 44-year-old male who presented to [facility] ED on 10/05/2024 for alcohol detox. 1. Alcohol use disorder with impending withdrawal and desire for detox ? Case management following. Was sober for about 1.5 years, recently started drinking heavily again due to life stressors. Reports drinking 12-18 beers per day plus up to a handle of liquor. Alcohol level 163 on admit. Treating with phenobarbital taper and other as needed medications per alcohol withdrawal orderset with adequate control of withdrawal symptoms. Per addiction medicine, likely planning for inpatient treatment on discharge, will follow-up. 2. Elevated LFTs ? Total bilirubin 1.90, AST 220, ALT 150, alk phos 149 on admit. Improved on hospital day 2. No abdominal pain noted. Suspect secondary to mild alcoholic hepatitis. No further inpatient needs. 3. Suspected GERD ? Patient reported reflux symptoms with frequent morning nausea on admission. Symptoms sounded consistent with GERD. Has had some improvement with initiationof PPI. Continue PPI. 4. Tobacco dependence ? Nicotine patch ordered per patient request. Discussed cessation of discharge. 5. History of VTE ? Provoked DVT after ankle surgery in the past, completed course of Eliquis and has not had recurrence. Okay for prophylactic Lovenox as below. DVT prophylaxis: Lovenox CODE STATUS: Full code, verified Expected disposition: TBD Total clinical time spent by myself addressing the patient's medical issues, reviewing all the data, and collaborating with patient's care team: 25 minutes. Charges/Coding Visit Charges Inpatient E&M: 63528 Subs Hosp L1 10/06/24 1447 <Electronically signed by Randy Jacob DO> Cosigner Signature (if applicable): CC: ~ Signed [facility] Work Phone: [phone]) 554-969608-14-2025 Progress note [facility] Medical Records Department [address] [place] [address] Progress Note - Hospitalist 10/06/24 1152 MR#: [id number] Acct: [id number] Name: TAPAN DAILEY Rep #:[id number] : 1980 44 From: Randy eubanks DO PCP: Dr. Luis Carnes MD Status:ADM I N Location: [place] [address]-1 Reason for Visit Chief Complaint: Requesting EtOH detox Subjective Subjective Saw patient at bedside this morning. Patient was laying back comfortably in bedand in no acute distress. He did note that he had a headache this morning. Hadbeen given a dose of ibuprofen for this about 10 minutes before I saw him. Otherwise his withdrawal symptoms are improved from yesterday. No other acute concerns this morning. Objective Data Objective Data Vital Signs: Vital Signs Temp Pulse Resp BP Pulse Ox O2 Del Method 98.2 F 70 17 136/78 H 95 Room Air 10/06/24 10:31 10/06/24 10:31 10/06/24 10:31 10/06/24 10:31 10/06/24 10:31 10/06/24 10:31 Oxygen Delivery Method Room Air Weight: 76.714 kg Body Mass Index (BMI) 22.3 Lab / Micro Data 10/05/24 17:01 10/06/24 05:27 Labs: Laboratory Results - last 24 hr 10/05/24 17:01: WBC 10.4, RBC 4.22 L, Hgb 15.2, Hct 41.7, MCV 98.8 H, MCH 36.0 H, MCHC 36.5 H, RDW Std Deviation 65.1 H, RDW Coeff of Margaret 17.8 H, Plt Count 153,MPV 10.5, Immature Gran % (Auto) 1.100 H, Neut % (Auto) 57.5, Lymph % (Auto) 27.1, Barren % (Auto) 12.8 H, Eos % (Auto) 0.9, Baso % (Auto) 0.6, Absolute Neuts (auto) 6.0, Absolute Lymphs (auto) 2.82, Nucleated RBC % 0, Differential CommentSCANNED, Platelet Estimate ADEQUATE, Polychromasia 1+, Anisocytosis 1+, Sodium 134, Potassium 3.7, Chloride 94 L, [...] Albumin/Globulin Ratio 1.2, Ethyl Alcohol 163.0 H 10/06/24 05:27: PT 13.8, INR 1.0, Sodium 135, Potassium 3.5, Chloride 96 L, Carbon Dioxide 26.2, Anion Gap 13, BUN 8, Creatinine 0.78, Estim Creat Clear Calc 131.14, Est GFR (MDRD) Non-Af 113, BUN/Creatinine Ratio 9.8 L, Glucose 118 H, Calcium 9.0, Phosphorus 4.0, Magnesium 1.7, Total Bilirubin 1.44 H, AST 130 H, ALT 114 H, Alkaline Phosphatase 127, Total Protein 6.5, Albumin 3.6, Globulin 2.9, Albumin/Globulin Ratio 1.3 Physical Exam Const alert, oriented x3, no apparent distress and average body habitus Constitutional Narrative: Middle-age male, mildly fatigued appearing but otherwise laying back comfortablyin bed, conversing normally, in no acute distress. General Appearance: cooperative and comfortable HEENT normocephalic, head/scalp atraumatic, hearing grossly normal bilaterally, nasal mucous membranes and turbinates normal and moist oral mucous membranes Eyes PERRL, EOMs intact bilaterally and conjunctivae normal Neck full ROM Chest inspection of chest normal Resp normal respiratory effort, normal air movement, no use of accessory muscles and clear to auscultation bilaterally Cardio regular rate, regular rhythm, no murmurs and peripheral pulses 2+ throughout GI normal to inspection, nondistended, normoactive bowel sounds, soft to palpation,non-tender and non-distended Back/Spine normal ROM Extremity normal to inspection, full ROM and no pedal edema Skin no rashes or lesions noted Psych mental status grossly normal Assessment & Plan Assessment/Plan (1) Alcohol dependence: (2) Desire for detoxification: PLAN: Plan Patient is a 44-year-old male who presented to [facility] ED on 10/05/2024 for alcohol detox. 1. Alcohol use disorder with impending withdrawal and desire for detox ? Case management following. Was sober for about 1.5 years, recently started drinking heavily againdue to life stressors. Reports drinking 12-18 beers per day plus up to a handle of liquor. Alcohol level 163 on admit. Treating with phenobarbital taper and other as needed medications per alcohol withdrawal orderset with adequate control of withdrawal symptoms. Per addiction medicine, likely planning for inpatient treatment on discharge, will follow-up. 2. Elevated LFTs ? Total bilirubin 1.90, AST 220, ALT 150, alk phos 149 on admit. Improved on hospital day 2. No abdominal pain noted. Suspect secondary to mild alcoholic hepatitis. No further inpatient needs. 3. Suspected GERD ? Patient reported reflux symptoms with frequent morning nausea on admission. Symptoms sounded consistent with GERD. Has had some improvement with initiationof PPI. Continue PPI. 4. Tobacco dependence ? Nicotine patch ordered per patient request. Discussed cessation of discharge. 5. History of VTE ? Provoked DVT after ankle surgery in the past, completed course of Eliquis and has not had recurrence. Okay for prophylactic Lovenox as below. DVT prophylaxis: Lovenox CODE STATUS: Full code, verified Expected disposition: TBD Total clinical time spent by myself addressing the patient's medical issues, reviewing all the data, and collaborating with patient's care team: 25 minutes. Charges/Coding Visit Charges Inpatient E&M: 07290 Subs Hosp L1 10/06/24 1447 Cosigner Signature (if applicable): CC: ~ Signed [facility]08-14-2025 Discharge summary Author Germán West [facility] Note Date/Time October 05, 2024 11 :15pm [facility] Medical Records Department [address] [place] [address] Emergency Department Summary 10/05/24 MR#: [id number] Acct: [id number] Name: TAPAN DAILEY Rep #:[id number] : 1980 44 From: Germán Laguerre PCP: Dr. Luis Carnes MD Status:ADM I N Location: [place] [address] HPI History of Present Illness Chief Complaint: ETOH Intox Informant: patient Narrative Narrative: Here requesting alcohol detox. He relapsed for the last few months. 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 He denies suicidal homicidal ideations. He states he drinks throughout the day. He states he wakes up and starts drinking. Last drink 30 minutes ago.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 Miscellaneous Notes* Telephone Encounter - Mark Flores [...] night at their house). documented in this [facility]-2022 Miscellaneous Notes* Telephone Encounter - Selene Wharton [...] have any questions, you can call Nurse behavioral interventionist back. documented in this encounterHol[facility]-25-2022 History of Present illness Narrative* Maico Paredes [...] CORONAVIRUS Maico Paredes MD documented in this encounterHol[facility]03-02-2021 NoteHNO ID: [id number] Author: Cesia (Lionel Sims) Jean Service: ? Author Type: Nurse Practitioner Type: Progress Notes Filed: 04/24/2020 2:53 PM Note Text: Cesia Pena APRN, CNP General Surgery [address] [facility], [address] [place] [address] Patient referred by: SELF Patient presents with: [...] Film under the tongue once daily. - yeadmp-ogwjihek-kzbzhwp (CREON) 6,000-19,000 -30,000 unit cpDR Take 1 [...] for any issues or concerns. Cesia Pena APRN.FIELD CROP I FARMWORKER Please Note: This office note has been created using NCTech, a speech recognition software program, and may contain errors including punctuation, grammar, spelling, gender, and inappropriate words or phrases that pertain to the sytem.[facility]02-17-2021 NoteHNO ID: [id number] Author: Carri Reid Service: Anesthesiology Author Type: Anesthesiologist Type: Anesthesia Procedure Notes Filed: 04/11/2020 5:38 PM Note Text: ANESTHESIOLOGY PROCEDURE NOTE Airway General Information Procedure Start Time/Medication Administration: 04/11/2020 12:28 PM Patient location during procedure: OR Timeout Performed Pre-procedure: timeout performed Consent Obtained: Yes Patient identity confirmed: arm band Staffing SPORTS ANCHOR: Nemo (Inspector Structural Bonding Radha) Shaji Performed by: SPORTS ANCHOR Indications and Patient Condition Preoxygenated: yes Patient [...] no Airway not difficult SIGNATURE: Beata Padgett APRN.SPORTS ANCHOR PATIENT NAME: Tapan Dailey DATE: April 11, 2020 TIME: 12:50 PM CSN: [id number] History of Past illness Narrative* Problem Noted Date Resolved Date Gallstones 04/11/2020 04/11/2020 Routine general medical exam ination at a health care facility 12/08/2008 11/28/2011 Overview: 12/08/2008, from Dr. Dallas Sterilization 11/26/2007 12/08/2008 Predominant disturbance of emotions 10/01/2007 12/08/2008 Unspecified adjustment reaction 10/01/2007 12/08/2008 Patellar tendinitis 07/28/2005 12/08/2008 documented as of this encounter (statuses as of 09/16/2021) [facility]-17[facility] History of Past illness Narrative* Problem Noted Date Resolved Date Gallstones 04/11/2020 04/11/2020 Routine general medical exam ination at a health care facility 12/08/2008 11/28/2011 Overview: 12/08/2008, from Dr. Dallas Sterilization 11/26/2007 12/08/2008 Predominant disturbance of emotions 10/01/2007 12/08/2008 Unspecified adjustment reaction 10/01/2007 12/08/2008 Patellar tendinitis 07/28/2005 12/08/2008 documented as of this encounter (statuses as of 09/17/2021) [facility] History of Past illness Narrative* Problem Noted Date Resolved Date Gallstones 04/11/2020 04/11/2020 Routine general medical exam ination at a health care facility 12/08/2008 11/28/2011 Overview: 12/08/2008, from Dr. Dallas Sterilization 11/26/2007 12/08/2008 Predominant disturbance of emotions 10/01/2007 12/08/2008 Unspecified adjustment reaction 10/01/2007 12/08/2008 Patellar tendinitis 07/28/2005 12/08/2008 documented as of this encounter (statuses as of 09/18/2021) [facility] History of Past illness Narrative* Problem Noted Date Resolved Date Gallstones 04/11/2020 04/11/2020 Routine general medical exam ination at a health care facility 12/08/2008 11/28/2011 Overview: 12/08/2008, from Dr. Dallas Sterilization 11/26/2007 12/08/2008 Predominant disturbance of emotions 10/01/2007 12/08/2008 Unspecified adjustment reaction 10/01/2007 12/08/2008 Patellar tendinitis 07/28/2005 12/08/2008 documented as of this encounter (statuses as of 11/12/2021) [facility] History of Past illness Narrative* Problem Noted Date Resolved Date Gallstones 04/11/2020 04/11/2020 Routine general medical exam ination at a health care facility 12/08/2008 11/28/2011 Overview: 12/08/2008, from Dr. aDllas Sterilization 11/26/2007 12/08/2008 Predominant disturbance of emotions 10/01/2007 12/08/2008 Unspecified adjustment reaction 10/01/2007 12/08/2008 Patellar tendinitis 07/28/2005 12/08/2008 documented as of this encounter (statuses as of 11/15/2021) [facility]-04-2021 NoteHNO ID: [id number] Author: Gladis Little DO Service: Emergency Medicine [...] study was performed by: Resident/STACIA with Attending supervision.[facility]01-19-2021 NoteHNO ID: [id number] Author: Eliezer Osorio Service: ? Author Type: Physician Type: Progress Notes Filed: 03/13/2020 8:45 AM Note Text: Patient referred by: Margot Adler MD [address] [facility] [address] HPI: This is a new patient consult [...] This office note has been created using NCTech, a speech recognition software program, and may contain errors including punctuation, grammar, spelling, gender, and inappropriate words or phrases that pertain to the sytem. ?[facility]01-18-2021 NoteHNO ID: [id number] Author: Eliezer Osorio Service: ? Author Type: [...] Total Time Spent: 11 minutes [facility] Diagnosis Onset Date Resolution Status Alcohol dependence acute Alcoholic hepatitis acute Abdominal pain resolved Acute hypokalemia resolved Hypokalemia resolved Nausea and vomiting resolved Alcohol abuse with physiological dependence acute Alcohol dependence acute Alcohol withdrawal acute Ascites acute Sinus tachycardia acute [facility] Work Phone: Evaluation note* Diagnosis Onset Date Resolution Status Abdominal pain resolved Acute hypokalemia resolved Alcoholic hepatitis resolved Hypokalemia resolved Nausea and vomiting resolved Alcohol withdrawal resolved Sinus tachycardia resolved Liver disease acute [facility] Work Phone: Evaluation note* Diagnosis Acute viral syndrome- Primary Unspecified viral infection, in conditions classified elsewhere and of unspecified site documented in this encounter [facility]* Diagnosis COVID-19- Primary ETOHism (HCC) Other and unspecified alcohol dependence, unspecified drinking behavior Other acute pulmonary embolism without acute cor pulmonale (HCC) documented in this encounter [facility]* Diagnosis Onset Date Resolution Status Liver disease acute Acute DVT of right tibial vein acute Protein C deficiency acute Pulmonary embolism acute [facility] Work Phone: Evaluation note* Diagnosis Chest pain, unspecified type- Primary Other acute pulmonary embolism without acute cor pulmonale (HCC) ETOHism (HCC) Other and unspecified alcohol dependence, unspecified drinking behavior SOB (shortness of breath) Shortness of breath Elevated liver enzymes Other nonspecific abnormal serum enzyme levels Chronic pain syndrome documented [facility] encounter [facility]* Diagnosis Onset Date Resolution Status Liver disease acute Acute DVT of right tibial vein acute Protein C deficiency acute Pulmonary embolism acute Acute DVT of right tibial vein acute Alcohol dependence acute [place] for detoxification [place] [facility] Work Phone: Evaluation note* Diagnosis Onset Date Resolution Status Liver disease acute Acute DVT of right tibial vein acute Protein C deficiency acute Pulmonary embolism acute Acute DVT of right tibial vein acute Alcohol dependence acute Alcoholic hepatitis acute [place] for detoxification [place] Hypokalemia acute Hypomagnesemia acute [facility] Work Phone: Evaluation note* Diagnosis Onset Date Resolution Status Alcohol dependence acute Alcoholic hepatitis acute [place] for detoxification [place] Hypomagnesemia acute Acute DVT of right tibial vein chronic Hypokalemia resolved Protein C deficiency acute Acute DVT of right tibial vein chronic Pulmonary embolism chronic Alcohol withdrawal acute [facility] Work Phone: Evaluation note* Diagnosis Onset Date Resolution Status Admit Date Desire for detoxification resolved October 05, 2024 5:59pm [facility] Work Phone: History and physical note Author Mecca Vargas [facility] Note Date/Time October 05, 2024 6: 05pm [facility] Medical Records Department [address] [place] [address] H&P Exam - Hospitalist 10/05/24 1758 MR#: [id number] Acct: [id number] Name: TAPAN DAILEY Rep #:[id number] : 1980 44 From: Mecca Vargas MD PCP: Dr. Luis Carnes MD Status:REG E R Location: ED HPI - General General Date of Admission: 10/05/24 Date of Service: 10/05/24 Chief Complaint: Requesting EtOH detox HPI Narrative TAPAN DAILEY, is a 44-year-old male history of alcohol use disorder, tobacco use, VTE who presented to [facility] ED 10/05/2024 requesting alcohol detox. Reportedly he [...] detox. Patient evaluated at bedside. He reports [id number] beers a day and up to half [...] eyes. No other new or acute complaints REPLACED BY [facility] Medical History DVT (deep venous thrombosis) Alcoholic liver disease Protein C deficiency History of venous thromboembolism History of narcotic addiction Tobacco use Anxiety and depression Kidney stones Alcohol abuse Migraine Home Medications ?Medication ?Instructions ?Recorded ?Last Taken ?Type apixaban 5 mg (74 tabs) tablets in See Rx Instructions .Route 04/12/24 Unknown Rx a dose pack (Eliquis DVT-PE [...] % (Auto) 57.5, Lymph % (Auto) 27.1, Barren % (Auto) 12.8 H, Eos % (Auto) [...] Vargas MD Charges/Coding Visit Charges Inpatient E&M: 88390 Init Hosp L2 10/05/24 2659 <Electronically signed by Mecca Vargas MD> Cosigner Signature (if applicable): CC: Dr. Mecca Vargas MD; Dr. Luis Carnes MD~ Signed [facility] Work Phone: Hospital Discharge instructions Additional Instructions Ice to all sore areas. Tylenol or Mercer for pain. Follow-up with your doctor if the knee is not improving. The CAT scan your brain look good. Your left knee x-ray look good. The CAT scan of your chest look good they did not see any broken ribs or collapsed lung. Do not drink alcohol if using the pain medication.[facility] Work Phone: Hospital Discharge instructionsAdditional Instructions [facility]: [facility] Reason for referral (narrative)* Outpatient Procedure (Routine) - Authorized Specialty Diagnoses / Procedures Referred By Contac t Referred To Contact [facility] Diagnoses Chest pain, unspecified type Procedures ECG COMPLETE ECG ROUTINE ECG W/LEAST 12 LDS W/I&R Luis Carnes MD [address] [place] [address] [facility] [place] [address] [place] [id number] Referral ID Status Reason Start Date Expiration Date Visits Requested Visits Authorized [id number] Authorized Auto-Generat ed Referral 11/15/2021 11/15/2022 1 1 [facility] for referral (narrative)No reason for referral information availableWWexner Medical Center Work Phone: Summary Purpose Family History No Family History Records Found Relationship Condition Age at Onset Recorded Date/T debbie Not Specified Malignant neoplasm of breast Unknown Disorder of thyroid Unknown Relationship Condition Age at Onset Recorded Date/T debbie mother Malignant neoplasm of breast Unknown Disorder of thyroid Unknown father Disorder of thyroid Unknown Advance Directives No Advanced Directives Records Found Advance Directive Response Recorded Date/ Time Advance Directives No October 12, 2015 2:50pm Living Will No May 16, 2021 12:57am Power of Scene And Lighting Design Lecturer No May 16 12:57am Advance Directive Response Recorded Date/ Time Advance Directives No October 12, 2015 2:50pm Living Will No August 14, 2021 10:30am Power of Scene And Lighting Design Lecturer No August 14 10:30am Documents on File Type Date Recorded Patient Billet Cutter Expl anation Advance Directive(s) 04/11/2020 10:38 AM Advance Directive(s) 03/29/2020 4:08 PM Advance Directive(s) 06/30/2019 8:34 AM Advance Directive Response Recorded Date/ Time Advance Directives No September 03 4:13pm Living Will No November 11, 2021 9:47pm Power of Scene And Lighting Design Lecturer No October 9:47pm Advance Directive Response Recorded Date/ Time Advance Directives No September 03 4:13pm Living Will No November 19, 2021 8:05pm Power of Scene And Lighting Design Lecturer No October 8:05pm Advance Directive Response Recorded Date/ Time Advance Directives No September 03 4:13pm Living Will No November 19, 2021 9:53pm Power of Scene And Lighting Design Lecturer No October 9:53pm Advance Directive Response Recorded Date/ Time Advance Directives No September 03 3:13pm Living Will No January 02 022 12:43am Power of Scene And Lighting Design Lecturer No January 02, 2022 12:43am Advance Directive Response Recorded Date/ Time Living Will No April 12 025 1:55pm Do you have a Healthcare Pow er of Scene And Lighting Design Lecturer? No April 12, 2024 1:55pm Living Will Yes March 02 5:33pm Do you have a Healthcare Pow er of Scene And Lighting Design Lecturer? Yes March 02, 2024 5:33pm Name of Medical Power of Scene And Lighting Design Lecturer Fabiana Kaba er March 02, 2024 5:33pm Living Will No April 17 025 7:49pm Do you have a Healthcare Pow er of Scene And Lighting Design Lecturer? No April 17, 2024 7:49pm Living Will No June 11, 2024 7:04pm Do you have a Healthcare Pow er of Scene And Lighting Design Lecturer? No June 11, 2024 7:04pm Advance Directives No September 03 4:13pm Advance Directive Response Recorded Date/ Time Do you have a Healthcare Power of Scene And Lighting Design Lecturer? No October 05, 2024 4:49pm Living Will No June 11, 2024 7:04pm Do you have a Healthcare Power of Scene And Lighting Design Lecturer? No June 11, 2024 7:04pm Advance Directives No September 03 4:13pm Advance Directive Response Recorded Date/ Time Do you have a Healthcare Power of Scene And Lighting Design Lecturer? No October 05, 2024 6:44pm Advance Directives No September 03 4:13pm Hospital Course Note Send Summary: Discharge Summ jarratt Providers: Provider RoleProvider Name Luis Muro Note Recipients: Clyde Carrasco MD Lago, Luis Marquez MD - [id number] [] Discharge: Summary: Admission Date: .16-Jan-2020 10:10:00 Discharge Date: 18-Jan-2020 Attending Physician at Discharge: Clyde Carrasco Admission Reason: Abdominal pain(1) Final Discharge Diagnoses: Acute pancreatitis Procedures: none Condition at Discharge: Satisfactory Disposition at Discharge: .Home Vital Signs: T PRBPSpO2 [id number]/8196% Date/Time01/17 11: 11: 11: 11: 11:33 Range(35.9C - 36.6C ) (70 - 85 ) (18 - 18 ) (107 - 136 )/ (72 - 84 ) (94% - 97% ) Date: Weight/Scale Type:Height: 17-Jan-2020 01:3167.3 kg / jaf004.4 cm Physical Exam: Constitutional: Well developed, awake/alert/oriented x3, no distress, alert and cooperative Eyes: PERRL, EOMI, clear sclera ENMT: mucous membranes moist, no apparent injury, no lesions seen Head/Neck: Neck supple, no apparent injury, thyroid (more content not included)... Note Send Summary: Discharge Summ xavier Providers: Provider RoleProvider Name Kimberly Luke William J Note Recipients: pcp Discharge: Summary: Admission Date: .01-Feb-2020 18:49:00 Discharge Date: 03-Feb-2020 Attending Physician at Discharge: Kimberly Sanchez Admission Reason: abdominal pain Final Discharge Diagnoses: 1. Acute on chronic Pancreatitis 2. Alcohol withdrawal 3. abdominal pain 4. hypomagnesemia Procedures: none Condition at Discharge: Satisfactory Disposition at Discharge: .Home Vital Signs: T PRBPSpO2 [id number]/9297% Date/Time02/02 16: 16: 16: 16: 16:19 Range(36C - 37C ) (81 - 131 ) (16 - 18 ) (118 - 160 )/ (79 - 94 ) (92% - 97% ) Highest temp of 37 C was recorded at 02/02 12:42 Date: Weight/Scale Type:Height: 02-Feb-2020 05:4265.2 kg / evyarohz528.4 cm Physical Exam: Constitutional: lying in bed [...] Admit Date Desire for detoxification March 02 025 3:58pm Chief Complaint Admit Date LEFT KNEE June 11, 2024 6:2 7pm alcohol detox October 05, 2024 5: 58pm ALCOHOL DETOX October 05, 2024 5: 59pm Reason for Visit Admit Date Desire for detoxification October 05 025 5:59pm Chief Complaint Admit Date alcohol detox October 05, 2024 5: 58pm ALCOHOL DETOX October 05, 2024 5: 59pm ALCOHOL DETOX October 06, 2024 11 :52am ALCOHOL DETOX October 07, 2024 10 :59am ALCOHOL DETOX October 08, 2024 3: 31pm ALCOHOL DETOX October 09, 2024 2: 57pm Reason for Visit Admit Date Alcohol dependence October 05, 2024 5: 59pm Desire for detoxification October 05 025 5:59pm Health Concerns Infection Onset Date Last [...] section and content) DATE CREATED AUTHOR 02/08/2020 [facility] DATE CREATED AUTHOR AUTHOR'S ORGANIZ ATION 05/05/2020 [facility] DATE CREATED AUTHOR AUTHOR'S ORGANIZ ATION 06/12/2020 [facility] DATE CREATED AUTHOR AUTHOR'S ORGANIZ ATION 02/23/2023 [facility] DATE CREATED AUTHOR AUTHOR'S ORGANIZ ATION 10/18/2024 [facility] Goals (unrecognized section and content) Goals may be documented in a n alternate sectionGoals may be documented in an alternate sectionGoals may be documented in an alternate sectionGoals may be documented in an alternate sectionGoals may be documented in an alternate section Source Comments (unrecognize d section and content) In the event this informatio n is protected by the Federal Confidentiality of Alcohol and Drug Abuse Patient Records regulations: The Federal rules restrict any use of the information to criminally investigate or prosecute any alcohol or drug abuse patient.[facility] the event this information is protected by the Federal Confidentiality of Alcohol and Drug Abuse Patient Records regulations: The Federal rules restrict any use of the information to criminally investigate or prosecute any alcohol or drug abuse patient.[facility] the event this information is protected by the Federal Confidentiality of Alcohol and Drug Abuse Patient Records regulations: The Federal rules restrict any use of the information to criminally investigate or prosecute any alcohol or drug abuse patient.[facility] the event this information is protected by the Federal Confidentiality of Alcohol and Drug Abuse Patient Records regulations: The Federal rules restrict any use of the information to criminally investigate or prosecute any alcohol or drug abuse patient.[facility] the event this information is protected by the Federal Confidentiality of Alcohol and Drug Abuse Patient Records regulations: The Federal rules restrict any use of the information to criminally investigate or prosecute any alcohol or drug abuse patient.[facility] the event this information is protected by the Federal Confidentiality of Alcohol and Drug Abuse Patient Records regulations: The Federal rules restrict any use of the information to criminally investigate or prosecute any alcohol or drug abuse patient.[facility] the event this information is protected by the Federal Confidentiality of Alcohol and Drug Abuse Patient Records regulations: The Federal rules restrict any use of the information to criminally investigate or prosecute any alcohol or drug abuse patient.[facility] Reason for Visit (unrecogniz ed section and content) Reason Comments Nausea & Vomiting sore throat, HOWELL, cou gh x 1 day Reason Comments Information Reason Comments Opened In Error Reason Comments Covid19 Concern Reason Comments Covid Follow Up Reason Comments Patient Update Reason Comments ER F/U Care Teams (unrecognized sec tion and content) Director Of Food And Beverage Services Relationship Specialty Start Date End Date Luis Carnes MD [address] [place] [address] PCP - General Family Practice 11/28/11 Director Of Food And Beverage Services Relationship Specialty Start Date End Date Luis Carnes MD [address] [place] [address] PCP - General Family Practice 11/28/11 Director Of Food And Beverage Services Relationship Specialty Start Date End Date Luis Carnes MD [address] [place] [address] PCP - General Family Practice 11/28/11 Director Of Food And Beverage Services Relationship Specialty Start Date End Date Luis Carnes MD [facility] [place] [address] PCP - General Family Medicine 11/28/11 Director Of Food And Beverage Services Relationship Specialty Start Date End Date Luis Carnes MD [facility] [place], [place] [address] PCP - General Family Medicine 11/28/11 Team [...] Active Start: October 05, 2024 Team Status: Inactive Member Role/Relationship Status Dates Dr. Luis Carnes MD Primary Care Provider Active Start: October 05, 2024 End: October 10, 2024 Dr. Germán West DO Emergency Provider Active Start : October 05, 2024 End: October 10, 2024 Dr. Mecca Vargas MD Admit Provider Active Star t: October 05, 2024 End: October 10, 2024 Dr. Mecca Vargas MD Other Provider Active Star t: October 05, 2024 End: October 10, 2024 Dr. Martinez Phelan DO Attending Provider Active Start: October 05, 2024 End: October 10, 2024 Dr. Randy Jacob DO Other Provider Active Start: October 05, 2024 End: October 10, 2024 Team Status: Active Member Role/Relationship Status Dates Dr. Luis Carnes MD Primary Care Provider Active Start: October 06, 2024 Dr. Germán West DO Emergency Provider Active Start : October 06, 2024 Dr. Mecca Vargas MD Admit Provider Active Star t: October 06, 2024 Dr. Mecca Vargas MD Other Provider Active Star t: October 06, 2024 Dr. Randy Jacob DO Attending Provider Active Start: October 06, 2024 Dr. Randy Jacob DO Other Provider Active Start: October 06, 2024 Team Status: Active Member Role/Relationship Status Dates Dr. Luis Carnes MD Primary Care Provider Active Start: October 07, 2024 Dr. Germán West DO Emergency Provider Active Start : October 07, 2024 Dr. Mecca Vargas MD Admit Provider Active Star t: October 07, 2024 Dr. Mecca Vargas MD Other Provider Active Star t: October 07, 2024 Dr. Randy Jacob DO Attending Provider Active Start: October 07, 2024 Dr. Randy Jacob DO Other Provider Active Start: October 07, 2024 Team Status: Active Member Role/Relationship Status Dates Dr. Luis Carnes MD Primary Care Provider Active Start: October 08, 2024 Dr. Germán West DO Emergency Provider Active Start : October 08, 2024 Dr. Mecca Vargas MD Admit Provider Active Star t: October 08, 2024 Dr. Mecca Vargas MD Other Provider Active Star t: October 08, 2024 Dr. Martinez Phelan DO Attending Provider Active Start: October 08, 2024 Dr. Martinez Phelan DO Other Provider Active S tart: October 08, 2024 Dr. Randy Jacob DO Other Provider Active Start: October 08, 2024 Team Status: Active Member Role/Relationship Status Dates Dr. Luis Carnes MD Primary Care Provider Active Start: October 09, 2024 Dr. Germán West DO Emergency Provider Active Start : October 09, 2024 Dr. Mecca Vargas MD Admit Provider Active Star t: October 09, 2024 Dr. Mecca Vargas MD Other Provider Active Star t: October 09, 2024 Dr. Martinez Phelan DO Attending Provider Active Start: October 09, 2024 Dr. Martinez Phelan DO Other Provider Active S tart: October 09, 2024 Dr. Randy Jacob DO Other Provider Active Start: October 09, 2024 FOR RECORDS PERTAINING TO PATIENTS WHO [...] BE BASED ON THE PRIMARY CLINICAL RECORDS. [facility], [facility]. provides no warranty or guarantee of the accuracy or completeness of information in this document.
== END 2021-04-30 09:24 | disposition home or self-care (01) | DRG 897 ==
LOC: ED 19:07 → MS3 19:14
PROVIDERS: Emergency Provider Emergency Medicine; PCP Family Medicine; Visit Provider Internal Medicine
DX: F10.239 Alcohol dependence with withdrawal, unspecified (principal); F11.21 Opioid dependence, in remission; E87.6 Hypokalemia; K70.11 Alcoholic hepatitis with ascites; F17.210 Nicotine dependence, cigarettes, uncomplicated; Y90.3 Blood alcohol level of 60-79 mg/100 ml; R00.0 Tachycardia, unspecified
CPT/HCPCS: 36415; 74177; 80053; 80307; 81001; 82077; 83690; 85025; 96374; 96375; 96376; 99221; 99284; Q9967; A4216; G0378; J2405

== ENCOUNTER 2021-05-15 21:26 | Inpatient (IN) | payer MEDICAID, SELFPAY ==
[2021-05-15 21:27] VITALS: BP 115/86; PULSE 123; RESP 16; TEMP 36.4; O2SAT 97; BMI 22.3
--- NOTE | 2021-05-15 21:51 | EDS_ITS ---
HPI History of Present Illness Chief Complaint: Substance Abuse Detail of Chief Complaint: Alcohol dependency Informant: patient and family Onset/Context/Timing Onset: Days (Resume drinking May 03) Context: Sudden Onset Timing: Continuous Quality: 0.1 to 1.0 pints a day Location: Not applicable Current Severity: Moderate Maximum Severity: Moderate Worsened by: Unknown Relieved by: Nothing Associated Symptoms Associated Symptoms: Negative for vomiting*, diarrhea*, fever*, rash*, seizure, tremor, palpatations, change in mental status, sex for drugs*, unknown, suicidal ideation and homicidal ideation Prehospital Treatment: Naloxone, Glucose, Oxygen, BVM, CPR and other Narrative Prior similar symptoms: Yes Recent Illness/Hospitalization: Yes PFSH PFSH Medical History Alcohol abuse Anxiety Back pain Depression Migraine Smoker SOB (shortness of breath) Allergy/AdvReac Type Severity Reaction Status Date / Time No Known Allergies Allergy Verified 05/15/21 21:27 Family History Other Breast cancer Thyroid disorder Surgical History History of cholecystectomy Necks Fusion Social History household members: significant other Smoking Status: Current every day smoker tobacco type: cigarettes alcohol intake: current alcohol intake frequency: 3 or more drinks per day substance use type: does not use ROS ROS ED Constitutional Constitutional ED: Denies chills, fever(s), subjective, sweats or weight loss Eyes Eyes: Denies blurry vision, change in vision or diplopia ENT ENT ED: Denies ear pain, rhinorrhea or sore throat Cardiovascular Cardiovascular: Denies chest pain, palpitations or racing heartbeat Respiratory/Chest Respiratory/Chest: Denies cough, dyspnea or dyspnea on exertion Gastrointestinal Gastrointestinal: Reports abdominal pain, melena and nausea; Denies constipation, diarrhea or vomiting Genitourinary Genitourinary ED: Denies dysuria, LMP (females 10-50) or urinary frequency Musculoskeletal Musculoskeletal: Denies arthralgias, back pain, myalgias or neck pain Integumentary Denies Abrasions or rash Neurologic Neurologic: Denies headache(s) or weakness Hematologic/Lymphatic Hematologic/Lymphatic: Denies easy bleeding or easy bruising EXAM Physical Exam Const Vital Signs: 05/15/21 21:27 Temperature 97.6 F L Temperature Source Temporal Pulse Rate 123 H Respiratory Rate 16 Blood Pressure 115/86 H Blood Pressure Mean 95 Pulse Ox 97 Oxygen Delivery Method Room Air Positive well nourished and well developed General Appearance ED: well developed and NAD; Negative for pallor HEENT Reports TM's clear and moist mucous membranes atraumatic; Negative for trauma or tenderness Tympanic Membrane ED: Yes TM's clear Eyes PERRL and EOMs intact bilaterally General Eye ED: Negative for pale conjunctiva or scleral icterus Neck no lymphadenopathy, supple and no JVD Chest Wall inspection of chest normal and palpation of chest normal Resp normal respiratory effort and clear to auscultation bilaterally Cardio regular rate, regular rhythm, S1 normal heart sound, S2 normal heart sound and no murmurs GI soft to palpation, non-tender and no masses; Negative for non-distended GI Narrative: Fluid wave and shifting dullness consistent with ascites Back/Spine no CVA tenderness Cervical Spine: Negative for cervical spine tenderness Thoracic Spine / Upper Back: Negative for thoracic spinal tenderness Lumbar Spine / Lower Back: Negative for lumbar spinal tenderness Extremity General Extremety ED: Negative for edema or tenderness General Extremity: Negative for edema Neuro oriented x3 Gerlaw Coma Scale: document GCS findings Spontaneous Obeys Commands Oriented 15 Sensorium / Orientation: alert Psych mental status grossly normal and thought process normal Skin General Skin Exam: Negative for jaundice or pallor Lesions: no lesions Rashes: no rashes MDM MDM MDM Narrative Medical decision making narrative: Spoke with the hospitalist to confirm that he would be readmitted prior to ordering any tests. Since he did not leave [facility] he will be admitted Dr. Murphy service Lab Data Lab results narrative: Lab results to be reviewed by Dr. Murphy. Discharge Plan Triage Chief Complaint: Substance Abuse ED Provider: Steve Cardona Dx/Rx/DC Orders Clinical Impression: Alcohol abuse with physiological dependence, Sinus tachycardia, Ascites Primary Care Provider: Luis Riley Referrals: Luis Riley MD [Primary Care Provider] - Disposition Disposition: Acute Care Hospital [facility]
--- NOTE | 2021-05-15 22:10 | HP.PCM.HOS_ITS ---
[facility] - General General Date of Admission: 05/15/21 Date of Service: 05/15/21 Chief Complaint: Acute alcohol withdrawal syndrome. Chronic alcoholic hepatitis. HPI Narrative VANESSA DAILEY, is a 41 M with history of chronic alcohol use, last recent admission between 04/26/2021-04/29/2021 for medical stabilization for acute alcohol withdrawal syndrome. Patient did not attend outpatient 1 week daily alcohol rehab program and start drinking alcohol after discharge. He was drinking a gallon of liquor, whiskey or rum before April 26 admission but has cut down to half a gallon after discharge. His last drink was about 7 PM today. Patient also has chronic right upper quadrant/epigastric pain. He states he has pain on coughing or deep inspiration/yawning. [facility] As per his history it seems he had alcoholic pancreatitis and acute cholecystitis at that time. During previous admission he had CT abdomen and pelvis which showed enlarged liver with fatty infiltration and transaminases and alkaline phosphatase were high. This time patient is going to quit alcohol and want to attend inpatient alcohol rehab. He has mild anxiety and restlessness but not with full withdrawal syndrome. His last drink was about 3 hours ago. No labs done in the ER but I ordered it. Vitals reviewed. Afebrile. Tachycardia heart rate 123/min, blood pressure normal. No hypoxia or tachypnea. PENDING SALE TO [facility] Medical History Alcohol abuse Anxiety Back pain Depression Migraine Smoker SOB (shortness of breath) Allergy/AdvReac Type Severity Reaction Status Date / Time No Known Allergies Allergy Verified 05/15/21 21:27 Family History Other Breast cancer Thyroid disorder Surgical History History of cholecystectomy Necks Fusion Social History household members: significant other Smoking Status: Current every day smoker tobacco type: cigarettes alcohol intake: current alcohol intake frequency: 3 or more drinks per day substance use type: does not use ROS ROS Narrative Constitutional: Reports fatigue and weakness HEENT: Reports systems reviewed and no addt'l complaints, except as documented Respiratory/Chest: Denies chest pain, shortness of breath at rest or with exertion Gastrointestinal: Chronic right upper quadrant/epigastric pain. Denies GI bleed, hematemesis, melena/hematochezia. Loss of appetite. Genitourinary: Denies burning urination or new urinary tract symptoms Musculoskeletal: No acute pain or limited range of motion. Had nondisplaced transverse fracture at the base of fifth metatarsal of left foot in November 2018 Neurologic: Denies seizure-like activity skin: No ulcer. No rash Endocrinology: Reports systems reviewed and no addt'l complaints, except as doc umented Hematologic/Lymphatic: Reports systems reviewed and no addt'l complaints, except as documented Rest 14 ROS are negative except as mentioned in HPI Vital Signs Vital Signs Vital Signs: 05/15/21 21:27 Temperature 97.6 F L Temperature Source Temporal Pulse Rate 123 H Respiratory Rate 16 Blood Pressure 115/86 H Blood Pressure Mean 95 Pulse Ox 97 Oxygen Delivery Method Room Air Weight Weight: 164 lb 10.965 oz Body Mass Index (BMI) 22.3 Physical Exam Narrative General: Alert, Oriented x3, Cooperative HEENT: Atraumatic, PERRLA, EOMI, Normocephalic Oral: No Gingival or Mucosal Lesions/ Ulcerations Neck: Supple, No JVD, Negative Carotid Bruits Lungs: Air entry diminished in bilateral lung bases. No crepitation/rhonchi Cardiovascular: Regular rate, Regular Rhythm, Normal S1, Normal S2, No murmurs Abdomen: Soft, tenderness present over epigastric and right upper quadrant. Liver enlarged and palpable below right lateral margin. Not distended. Bowel sounds present. : No renal angle tenderness. No suprapubic tenderness. Extremities: No edema, Capillary Refill Less than 3 Seconds Skin: No rashes, No breakdown Musculoskeletal: No Tenderness to Palpation of Joints or Extremities Neurological: Cranial nerves II-XII grossly intact, DTR 2+/4 and Symmetrical, Neuro grossly intact Psych/Mental Status: Normal Affect, Appropriate Assessment & Plan Assessment/Plan (1) Alcohol abuse with physiological dependence: PLAN: 1. Acute alcohol withdrawal syndrome with history of chronic alcohol use, dependence and tolerance: [facility] Labs ordered. Started on phenobarbitone along with other adjunctive medications. intellectual property manager wanted to consult. Patient might need inpatient alcohol rehab. After previous discharge, he was expecting call from alcohol outpatient rehab program as he affirmed that was told but he did not get a call. In the meantime he started drinking alcohol. 2. Acute on chronic right upper quadrant abdominal pain due to acute on chronic alcoholic hepatitis: During recent previous labs in April 2021, his transaminases have been elevated in the AST more than 3 times ALT. Alkaline phosphatase about 200. Serum albumin 2.2. INR normal. Labs including liver chemistry and CT. CT abdomen done on March and April 2021 reviewed. Large fatty liver/hepatomegaly, status post cholecystectomy. Normal pancreas. Avoid NSAID. Protonix 40 mg daily. 3. Chronic nicotine use/cigarette smoking: Patient smokes 1 to 1 and half pack per day. Advised to quit smoking. Nicotine patch ordered. 4. History of chronic opioid use in the past. Patient last opioid was about 10 years ago. Denies other substance use including crack cocaine, marijuana, phencyclidine, ecstasy, amphetamine/methamphetamine. U tox is ordered. VTE prophylaxis low risk/high bleeding risk due to abnormal liver tests: Early ambulation encouraged Full code. Charges/Coding Visit Charges Inpatient E&M: 98566 Init Hosp L3
[2021-05-15 22:23] LABS: Absolute Lymphocyte Count 2.57 X10^3/uL (0.83-4.51); Absolute Neutrophil Count 7.8 X10^3/uL (2.0-7.7); Basophil# 0.06 X10^3/uL; Basophil% 0.5 % (0-1); Eosinophil# 0.11 X10^3/uL; Hematocrit 42.9 % (40-54); Hemoglobin 15.3 g/dL (13.0-16.5); Lymphocyte # 2.57 X10^3/ul (0.83-4.51); Lymphocyte % 22.3 % (19-41); Mean Corp Hgb Conc 35.7 g/dL (32-36); Mean Corpuscular Hgb 38.1 pg (27.0-32.0); Mean Corpuscular Volume 106.7 fL (80-94); Mean Platelet Vol. 10.1 fl (6.2-12.0); Monocyte# 0.99 X10^3/uL; Monocyte% 8.6 % (0-10); NRBC Flagged by Analyzer 0 % (0-5); Neutrophil # 7.76 X10^3/uL (2.7-7.7); Neutrophil % 67.1 % (47-70); Platelet Count 246 K/mm3 (150-450); RBC Distribution Width CV 12.9 % (11.6-14.6); Red Blood Count 4.02 M/mm3 (4.6-6.2); White Blood Count 11.6 K/mm3 (4.4-11.0)
[2021-05-15 22:34] LABS: International Normalized Ratio 1.2; Prothrombin Time (Protime)PT. 14.2 SECONDS (11.7-14.9)
[2021-05-15 22:44] VITALS: RESP 16
[2021-05-15 23:29] LABS: ALB/GLOB Ratio 0.6 RATIO (0.9-2.4); AST(SGOT) 103 U/L (15-37); Alanine Aminotransfer ALT/SGPT 39 U/L (16-61); Alkaline Phosphatase 256 U/L (45-117); Anion Gap 12 (5-15); BUN 3 mg/dL (7-18); Chloride 102 mmol/L (98-107); EST Glomerular Filtration Rate 158 mL/min (>60); Est Glom Filt Rate - Afr Amer 192 mL/min (>60); Estimated Creatinine Clearance 171.19 ml/min; GGTP 926 U/L (15-85); Globulin 4.8 g/dL (2.2-4.2); Glucose 97 mg/dL (74-106); Lipase 62 U/L (73-393); Potassium 3.1 mmol/L (3.5-5.1); Protein, Total 7.8 g/dL (6.4-8.2); Sodium Level 139 mmol/L (136-145)
[2021-05-15 23:30] LABS: Amphetamine Urine VISTA NEGATIVE (<1000 ng/mL); Barbiturate Urine VISTA POSITIVE (< 200 ng/mL); Benzodiazepine Urine VISTA NEGATIVE (< 200 ng/mL); Cocaine Urine VISTA NEGATIVE (< 300 ng/mL); Ecstacy Urine VISTA NEGATIVE (< 500 ng/mL); Methadone Urine VISTA NEGATIVE (< 300 ng/mL); PCP Urine VISTA NEGATIVE (< 25 ng/mL); THC Urine VISTA NEGATIVE (< 50 ng/mL); Vista UDS pH Range 6
[2021-05-16] VITALS (8 sets, daily range): BP systolic 95–118; BP diastolic 70–83; PULSE 88–108; RESP 15–18; TEMP 36.6–37.2; O2SAT 88–99; BMI 21.7
[2021-05-16] MEDS: Lactated Ringers 1,000 ML 125 ML IV (01:28)
[2021-05-16] MEDS: hydrOXYzine PAM 25 MG Capsule 50 MG PO ×3 (01:28→22:04)
[2021-05-16] MEDS: Phenobarbital 32.4 MG Tablet PO ×6 (01:28→20:40)
[2021-05-16] MEDS: Ondansetron 8 MG Tablet PO (01:28)
[2021-05-16] MEDS: Acetaminophen 500 MG Tablet PO ×2 (01:28→09:13)
[2021-05-16] MEDS: traZODone 100 MG Tablet PO ×2 (01:29→20:40)
[2021-05-16] MEDS: Dicyclomine 10 MG Capsule 20 MG PO ×2 (01:29→09:13)
[2021-05-16] MEDS: Potassium Chloride Oral Tablet 20 MEQ 40 MEQ PO ×2 (06:34→09:13)
[2021-05-16] MEDS: Thiamine Hydrochloride 100 MG Tablet PO (09:14)
[2021-05-16] MEDS: Folic Acid 1 MG Tablet PO (09:14)
[2021-05-16 09:38] LABS: Magnesium 1.3 mg/dL (1.6-2.6); Phosphorus 4.2 mg/dL (2.5-4.9)
[2021-05-16] MEDS: Ketorolac 10 MG Tablet PO ×2 (15:29→22:04)
--- NOTE | 2021-05-16 16:52 | ADDICTION ---
TW met with pt to fill out ASAM, AUDIT, DUDIT, MSE, and begin D/C planning. Pt expressed interest in residential treatment but had questions he wanted answered first. Pt kept complaining of intense pain in both his back and side. TW will communicate residential information to Ana, who will return tomorrow to see client. Completed d/c planning still needs to be done.
--- NOTE | 2021-05-16 16:58 | PN.HOSP_ITS ---
Subjective Subjective Patient seen and examined. He complains of abdominal pain which is not new, and says that is the reason why he drinks. He denies any dizziness, lightheadedness, nausea, tremors, any fever or chills. REview of systems is otherwise negative. He has remained hemodynamically stable. Objective Data Objective Data Vital Signs: Vital Signs Temp Pulse Resp BP Pulse Ox 98.3 F 96 16 95/71 92 05/16/21 13:26 05/16/21 13:26 05/16/21 13:26 05/16/21 13:26 05/16/21 13:26 Oxygen Flow Rate (L/min) 2 Oxygen Delivery Method Room Air Weight: 165 lb 0.009 oz Body Mass Index (BMI) 21.7 Intake & Output: Intake and Output for Last 24 Hours 05/14/21 05/15/21 05/16/21 23:59 23:59 23:59 Intake Total 979.17 / 979.17 Balance 979.17 / 979.17 Lab / Micro Data Result Diagrams: 05/15/21 22:00 05/15/21 22:00 Labs: Laboratory Results - last 24 hr 05/15/21 22:00: WBC 11.6 H, RBC 4.02 L, Hgb 15.3, Hct 42.9, MCV 106.7 H, MCH 38.1 H, MCHC 35.7, RDW Std Deviation 51.0 H, RDW Coeff of Margaret 12.9, Plt Count 246, MPV 10.1, Immature Gran % (Auto) 0.500, Neut % (Auto) 67.1, Lymph % (Auto) 22.3, [place] % (Auto) 8.6, Eos % (Auto) 1.0, Baso % (Auto) 0.5, Absolute Neuts (auto) 7.8 H, Absolute Lymphs (auto) 2.57, Nucleated RBC % 0 05/15/21 22:00: Sodium Cancelled, Potassium Cancelled, Chloride Cancelled, Carbon Dioxide Cancelled, Anion Gap Cancelled, BUN Cancelled, Creatinine Cancelled, Estim Creat Clear Calc Cancelled, Est GFR (MDRD) Af Amer Cancelled, Est GFR (MDRD) Non-Af Cancelled, BUN/Creatinine Ratio Cancelled, Glucose Cancelled, Calcium Cancelled, Total Bilirubin Cancelled, GGT Cancelled, AST Cancelled, ALT Cancelled, Alkaline Phosphatase Cancelled, Total Protein Cancelled, Albumin Cancelled, Globulin Cancelled, Albumin/Globulin Ratio Cancelled, Lipase Cancelled 05/15/21 22:00: Ethyl Alcohol 120.0 05/15/21 22:00: Sodium 139, Potassium 3.1 L, Chloride 102, Carbon Dioxide 25.0, Anion Gap 12, BUN 3 L, Creatinine 0.60 L, Estim Creat Clear Calc 171.19, Est GFR (MDRD) Af Amer 192, Est GFR (MDRD) Non-Af 158, BUN/Creatinine Ratio 5.0 L, Glucose 97, Calcium 9.0, Total Bilirubin 0.70, GGT 926 H, AST 103 H, ALT 39, Alkaline Phosphatase 256 H, Total Protein 7.8, Albumin 3.0 L, Globulin 4.8 H, Albumin/Globulin Ratio 0.6 L, Lipase 62 L 05/15/21 22:15: PT 14.2, INR 1.2 05/15/21 22:40: Urine Opiates Screen NEGATIVE, Urine Methadone Screen NEGATIVE, Ur Barbiturates Screen POSITIVE H, Ur Phencyclidine Scrn NEGATIVE, Ur Amphetamines Screen NEGATIVE, MDMA (Ecstasy) Screen NEGATIVE, U Benzodiazepines Scrn NEGATIVE, Urine Cocaine Screen NEGATIVE, U Cannabinoids Screen NEGATIVE, Ur Drug Screen Comment 05/16/21 08:33: Phosphorus 4.2, Magnesium 1.3 L Physical Exam Const alert, oriented x3 and no apparent distress Exam Limitations: no limitations HEENT head/scalp atraumatic and moist oral mucous membranes Head and Scalp: normocephalic Eyes PERRL, EOMs intact bilaterally and conjunctivae normal Neck no lymphadenopathy and supple Resp normal respiratory effort, no retractions, no use of accessory muscles and clear to auscultation bilaterally Cardio regular rate, regular rhythm, S1 normal heart sound, S2 normal heart sound and no murmurs GI normal to inspection, nondistended, normoactive bowel sounds and soft to palpation GI Narrative: mild RUQ tenderness, no guarding or rebound tenderness. Extremity normal to inspection, full ROM and no clubbing, cyanosis or edema Peripheral Pulses: Yes pulses 2+ throughout Skin no rashes or lesions noted Neuro oriented x3, CN's II-XII intact bilaterally and moves all extremities Sensorium / Orientation: awake and alert Psych affect normal Assessment & Plan Assessment/Plan (1) Alcohol dependence: QUALIFIERS: Substance use status: uncomplicated Qualified Code(s): F10.20 - Alcohol dependence, uncomplicated (2) Alcohol withdrawal: PLAN: #Acute alcohol withdrawal * On alcohol withdrawal protocol with phenobarbital * On thiamine, folic acid and Multivite. * Adjunctive meds for symptomatic relief. * Case management on board to help with discharge planning as patient was recently discharged from the hospital to be managed for acute alcohol withdrawal * #Acute on chronic RUQ pain due to acute on chronic alcoholic hepatitis * Liver enzymes are within normal limits. INR is also within normal limits at time of admission. * On Protonix. Patient counseled to stop drinking. * lipase was only 62 on admission * #Hypokalemia: K is 3.1. Will replace and trend. #Hypomagnesemia: replaced. Will trend. #Chronic nicotine dependence: counseled to quit. Nicotine patch 21mg daily DVT prophylaxis: SCDs. Charges/Coding Visit Charges Inpatient E&M: 39060 Subs Hosp L2
[2021-05-17] MEDS: Phenobarbital 32.4 MG Tablet PO ×6 (00:12→20:48)
[2021-05-17] MEDS: hydrOXYzine PAM 25 MG Capsule 50 MG PO ×3 (04:26→20:48)
[2021-05-17 04:32] VITALS: BP 96/67; PULSE 91; RESP 16; TEMP 36.6; O2SAT 95
[2021-05-17] MEDS: Folic Acid 1 MG Tablet PO (09:55)
[2021-05-17] MEDS: Thiamine Hydrochloride 100 MG Tablet PO (09:55)
[2021-05-17 10:00] VITALS: BP 94/65; PULSE 88; RESP 18; TEMP 36.7; O2SAT 94
[2021-05-17] MEDS: Gabapentin 300 MG Capsule PO (10:03)
[2021-05-17] MEDS: Ketorolac 10 MG Tablet PO ×2 (10:03→20:48)
--- NOTE | 2021-05-17 11:01 | PN.HOSP_ITS ---
Subjective Subjective Patient seen and examined. He still complained of some abdominal pain. He was however resting comfortably when I walked in to the room. Review of systems is otherwise negative. Objective Data Objective Data Vital Signs: Vital Signs Temp Pulse Resp BP Pulse Ox 98.0 F 88 18 94/65 94 05/17/21 10:00 05/17/21 10:00 05/17/21 10:00 05/17/21 10:00 05/17/21 10:00 Oxygen Flow Rate (L/min) 2 Oxygen Delivery Method Room Air Weight: 165 lb 0.009 oz Body Mass Index (BMI) 21.7 Intake & Output: Intake and Output for Last 24 Hours 05/15/21 05/16/21 05/17/21 23:59 23:59 23:59 Intake Total 1219.17 / 1219.17 Balance 1219.17 / 1219.17 Lab / Micro Data Result Diagrams: 05/15/21 22:00 05/15/21 22:00 Physical Exam Const alert, oriented x3 and no apparent distress Exam Limitations: no limitations HEENT head/scalp atraumatic and moist oral mucous membranes Head and Scalp: normocephalic Eyes PERRL, EOMs intact bilaterally and conjunctivae normal Neck no lymphadenopathy and supple Resp normal respiratory effort, no retractions, no use of accessory muscles and clear to auscultation bilaterally Cardio regular rate, regular rhythm, S1 normal heart sound, S2 normal heart sound and no murmurs GI normal to inspection, nondistended, normoactive bowel sounds and soft to palpation GI Narrative: mild RUQ tenderness, no guarding or rebound tenderness. Extremity normal to inspection, full ROM and no clubbing, cyanosis or edema Peripheral Pulses: Yes pulses 2+ throughout Skin no rashes or lesions noted Neuro oriented x3, CN's II-XII intact bilaterally and moves all extremities Sensorium / Orientation: awake and alert Psych affect normal Assessment & Plan Assessment/Plan (1) Alcohol dependence: QUALIFIERS: Substance use status: uncomplicated Qualified Code(s): F10.20 - Alcohol dependence, uncomplicated (2) Alcohol withdrawal: PLAN: #Acute alcohol withdrawal * On alcohol withdrawal protocol with phenobarbital * On thiamine, folic acid and Multivite. * Adjunctive meds for symptomatic relief. * Case management on board to help with discharge planning as patient was recently discharged from the hospital to be managed for acute alcohol withdrawal * #Acute on chronic RUQ pain due to acute on chronic alcoholic hepatitis * Liver enzymes are within normal limits. INR is also within normal limits at time of admission. * On Protonix. Patient counseled to stop drinking. * lipase was only 62 on admission * #Hypokalemia: resolved. #Hypomagnesemia: replaced. Will trend. #Chronic nicotine dependence: counseled to quit. Nicotine patch 21mg daily DVT prophylaxis: SCDs. Charges/Coding Visit Charges Inpatient E&M: 01764 Subs Hosp L2
--- NOTE | 2021-05-17 13:00 | CASEMGMT ---
Social Work Note SW reviewed chart. Pt is self-pay. SW in to speak with pt. SW introduced self and role at [facility]. Pt states that he states he applied for Medicaid and he is waiting for it to become active. SW provided pt with self-pay packet. Fatmata Coles [employer], [employer]
--- NOTE | 2021-05-17 13:27 | CASEMGMT ---
Per Addiction Therapist Ana: This worker met with pt about d/c planning. He has agreed to residential treatment. He has been approved for treatment at [facility] in [facility]. He asked to have his father bring his belongings. He signed a release for dad. TW left a voicemail for dad. [place] has a bed available and can transport on 05/20/21.
[2021-05-17] MEDS: Acetaminophen 500 MG Tablet PO (13:33)
[2021-05-17 14:00] VITALS: BP 105/61; PULSE 86; RESP 18; TEMP 36.7; O2SAT 95
[2021-05-17 17:00] VITALS: BP 101/61; PULSE 88; RESP 20; TEMP 36.7; O2SAT 95
[2021-05-17] MEDS: traZODone 100 MG Tablet PO (20:48)
[2021-05-17 20:53] VITALS: BP 103/73; PULSE 90; RESP 16; TEMP 36.6; O2SAT 96
[2021-05-18] MEDS: hydrOXYzine PAM 25 MG Capsule 50 MG PO ×4 (01:10→21:03)
[2021-05-18] MEDS: Phenobarbital 32.4 MG Tablet PO ×5 (01:10→21:04)
[2021-05-18 01:17] VITALS: BP 98/64; PULSE 98; RESP 16; TEMP 36.8; O2SAT 97
[2021-05-18] MEDS: Ketorolac 10 MG Tablet PO ×3 (05:08→21:03)
[2021-05-18] MEDS: Thiamine Hydrochloride 100 MG Tablet PO (07:37)
[2021-05-18] MEDS: Folic Acid 1 MG Tablet PO (07:38)
[2021-05-18 10:00] VITALS: BP 99/73; PULSE 86; RESP 16; TEMP 36.8; O2SAT 99
[2021-05-18] MEDS: Gabapentin 300 MG Capsule PO ×2 (12:17→21:03)
--- NOTE | 2021-05-18 12:43 | PN.HOSP_ITS ---
Subjective Subjective Patient seen and examined. He still complains of some mild right upper quadrant pain but it was improving. Review of systems otherwise negative. He is awaiting discharge to an inpatient rehab facility on Thursday. Objective Data Objective Data Vital Signs: Vital Signs Temp Pulse Resp BP Pulse Ox 98.3 F 86 16 99/73 99 05/18/21 10:00 05/18/21 10:00 05/18/21 10:00 05/18/21 10:00 05/18/21 10:00 Oxygen Flow Rate (L/min) 2 Oxygen Delivery Method Room Air Weight: 165 lb 0.009 oz Body Mass Index (BMI) 21.7 Intake & Output: Intake and Output for Last 24 Hours 05/16/21 05/17/21 05/18/21 23:59 23:59 23:59 Intake Total 1219.17 / 1219.17 Balance 1219.17 / 1219.17 Lab / Micro Data Result Diagrams: 05/15/21 22:00 05/15/21 22:00 Physical Exam Const alert, oriented x3 and no apparent distress Exam Limitations: no limitations HEENT head/scalp atraumatic and moist oral mucous membranes Head and Scalp: normocephalic Eyes PERRL, EOMs intact bilaterally and conjunctivae normal Neck no lymphadenopathy and supple Resp normal respiratory effort, no retractions, no use of accessory muscles and clear to auscultation bilaterally Cardio regular rate, regular rhythm, S1 normal heart sound, S2 normal heart sound and no murmurs GI normal to inspection, nondistended, normoactive bowel sounds and soft to palpation GI Narrative: mild RUQ tenderness, no guarding or rebound tenderness. Extremity normal to inspection, full ROM and no clubbing, cyanosis or edema Peripheral Pulses: Yes pulses 2+ throughout Skin no rashes or lesions noted Neuro oriented x3, CN's II-XII intact bilaterally and moves all extremities Sensorium / Orientation: awake and alert Psych affect normal Assessment & Plan Assessment/Plan (1) Alcohol dependence: QUALIFIERS: Substance use status: uncomplicated Qualified Code(s): F10.20 - Alcohol dependence, uncomplicated (2) Alcohol withdrawal: PLAN: #Acute alcohol withdrawal * On alcohol withdrawal protocol with phenobarbital * On thiamine, folic acid and Multivite. * Adjunctive meds for symptomatic relief. * Case management on board to help with discharge planning as patient was recently discharged from the hospital to be managed for acute alcohol withdrawal * #Acute on chronic RUQ pain due to acute on chronic alcoholic hepatitis * Liver enzymes are within normal limits. INR is also within normal limits at time of admission. * On Protonix. Patient counseled to stop drinking. * lipase was only 62 on admission * #Hypokalemia: resolved. #Hypomagnesemia: replaced. Will trend. #Chronic nicotine dependence: counseled to quit. Nicotine patch 21mg daily DVT prophylaxis: SCDs. Disposition: for dc to inpatient rehab facility on Thursday05/20/2021 Charges/Coding Visit Charges Inpatient E&M: 76171 Subs Hosp L2
[2021-05-18 15:08] VITALS: BP 104/69; PULSE 87; RESP 16; TEMP 37; O2SAT 99
[2021-05-18 20:48] VITALS: BP 110/76; PULSE 96; RESP 18; TEMP 36.7; O2SAT 95
[2021-05-18] MEDS: Dicyclomine 10 MG Capsule 20 MG PO (21:03)
[2021-05-18] MEDS: traZODone 100 MG Tablet PO (21:03)
[2021-05-18] MEDS: Acetaminophen 500 MG Tablet PO (21:03)
[2021-05-19 03:00] VITALS: BP 97/62; PULSE 93; RESP 16; TEMP 36.7; O2SAT 99
[2021-05-19] MEDS: Phenobarbital 32.4 MG Tablet PO ×4 (03:13→21:04)
[2021-05-19] MEDS: Thiamine Hydrochloride 100 MG Tablet PO (08:47)
[2021-05-19] MEDS: Folic Acid 1 MG Tablet PO (08:47)
[2021-05-19] MEDS: Ketorolac 10 MG Tablet PO ×3 (08:57→22:58)
[2021-05-19 09:00] VITALS: BP 100/72; PULSE 97; RESP 16; TEMP 37; O2SAT 99
--- NOTE | 2021-05-19 10:02 | ADDICTION ---
TW met with pt to check in. Pt was concerned about his belongings and wanting to make sure that he would have them before going to [place]. TW stated she would check in with Ana, primary hospital therapist, about this. TW and pt processed stressors related to change, recovery, and pain. Pt stated he woudl reach out to nursing staff if there was anything else he needed from therapist.
--- NOTE | 2021-05-19 11:07 | PN.HOSP_ITS ---
Subjective Subjective Patient seen and examined. He still complained of some RUQ pain. He has no active complaints and review of systems is otherwise negative. He is awaiting discharge to rehab facility. Objective Data Objective Data Vital Signs: Vital Signs Temp Pulse Resp BP Pulse Ox 98.6 F 97 16 100/72 99 05/19/21 09:00 05/19/21 09:00 05/19/21 09:00 05/19/21 09:00 05/19/21 09:00 Oxygen Flow Rate (L/min) 2 Oxygen Delivery Method Room Air Weight: 165 lb 0.009 oz Body Mass Index (BMI) 21.7 Lab / Micro Data Result Diagrams: 05/15/21 22:00 05/15/21 22:00 Physical Exam Const alert, oriented x3 and no apparent distress Exam Limitations: no limitations HEENT head/scalp atraumatic and moist oral mucous membranes Head and Scalp: normocephalic Eyes PERRL, EOMs intact bilaterally and conjunctivae normal Neck no lymphadenopathy and supple Resp normal respiratory effort, no retractions, no use of accessory muscles and clear to auscultation bilaterally Cardio regular rate, regular rhythm, S1 normal heart sound, S2 normal heart sound and no murmurs GI normal to inspection, nondistended, normoactive bowel sounds and soft to palpation GI Narrative: mild RUQ tenderness, no guarding or rebound tenderness. Extremity normal to inspection, full ROM and no clubbing, cyanosis or edema Peripheral Pulses: Yes pulses 2+ throughout Skin no rashes or lesions noted Neuro oriented x3, CN's II-XII intact bilaterally and moves all extremities Sensorium / Orientation: awake and alert Psych affect normal Assessment & Plan Assessment/Plan (1) Alcohol dependence: QUALIFIERS: Substance use status: uncomplicated Qualified Code(s): F10.20 - Alcohol dependence, uncomplicated (2) Alcohol withdrawal: PLAN: #Acute alcohol withdrawal * On alcohol withdrawal protocol with phenobarbital * On thiamine, folic acid and Multivite. * Adjunctive meds for symptomatic relief. * Case management on board to help with discharge planning as patient was recently discharged from the hospital to be managed for acute alcohol withdrawal * #Acute on chronic RUQ pain due to acute on chronic alcoholic hepatitis * Liver enzymes are within normal limits. INR is also within normal limits at time of admission. * On Protonix. Patient counseled to stop drinking. * lipase was only 62 on admission * #Hypokalemia: resolved. #Hypomagnesemia: replaced. Will trend. #Chronic nicotine dependence: counseled to quit. Nicotine patch 21mg daily DVT prophylaxis: SCDs. Disposition: for dc to inpatient rehab facility on Thursday05/20/2021 Charges/Coding Visit Charges Inpatient E&M: 31378 Subs Hosp L2
[2021-05-19] MEDS: Gabapentin 300 MG Capsule PO (15:21)
[2021-05-19] MEDS: hydrOXYzine PAM 25 MG Capsule 50 MG PO ×2 (15:21→22:58)
[2021-05-19 15:32] VITALS: BP 92/63; PULSE 100; RESP 16; TEMP 36.9; O2SAT 99
[2021-05-19] MEDS: Acetaminophen 500 MG Tablet PO ×2 (16:21→22:58)
[2021-05-19 21:01] VITALS: BP 96/62; PULSE 96; RESP 16; TEMP 37.1; O2SAT 94
[2021-05-19] MEDS: traZODone 100 MG Tablet PO (22:58)
[2021-05-19] MEDS: Dicyclomine 10 MG Capsule 20 MG PO (22:58)
[2021-05-20 02:56] VITALS: BP 77/56; PULSE 97; RESP 18; TEMP 36.4; O2SAT 92
[2021-05-20 09:30] VITALS: BP 97/73; PULSE 100; RESP 18; TEMP 36.3; O2SAT 94
--- NOTE | 2021-05-20 09:32 | PCM.DC ---
Discharge Instructions Diet Discharge Diet: No restrictions Activity Discharge Activity: Return to Normal Activity Follow Up Care Test Results: Test results from this visit will be discussed in further detail at your follow-up appointment, if applicable. Discharge Plan Admission Admit Date/Time: 05/15/21 21:52 Primary Reason for Your Visit: alcohol withdrawal Attending Provider: Rito Kimbrough Primary Care Provider: Luis Riley Discharge Orders/Prescriptions Referrals / Follow Up: Alex Dewitt DO [STAFF PHYSICIAN] - Within 1 Month (abnormal liver tests. ) Luis Riley MD [Primary Care Provider] - Within 2 Weeks Disposition Disposition (needs filled in before D/C Order can be placed): Home, Self Care
--- NOTE | 2021-05-20 09:34 | PCM.DC.SUM ---
Providers Date of Admission: 05/15/21 Primary Care Physician: Dr. Luis Riley MD Reason For Visit: SUBSTANCE USE DISORDER/ALCOHOL Diagnosis Discharge Diagnosis (1) Alcohol dependence: Status: Acute Code(s): F10.20 - Alcohol dependence, uncomplicated Qualifiers: Substance use status: uncomplicated Qualified Code(s): F10.20 - Alcohol dependence, uncomplicated (2) Alcohol withdrawal: Status: Acute Code(s): F10.239 - Alcohol dependence with withdrawal, unspecified Hospital Course Operations None Procedures None Summary of Care Provided Minutes Spent on Discharge: 28 Hospital Course: This is a 41-year-old male with a history of chronic alcohol abuse who was recently admitted from the [facility] for alcohol withdrawal. Patient did not attend outpatient program and started consuming alcohol immediately after discharge. Patient presented seeking treatment again. Patient's course was uncomplicated but was having abdominal pain. Patient did have elevated liver transaminases but those did improve. Patient had previously been instructed to follow-up with gastroenterology as outpatient. Once again, patient will instructed to follow-up with gastroenterology to see if he has any other concerning for cirrhosis. Physical Exam Const General Appearance: cooperative GI normal to inspection, nondistended, normoactive bowel sounds GI Narrative: Epigastric abdominal tenderness as well as right upper quadrant with hepatomegaly. Extremity normal to inspection Weight / BMI Weight Weight: 74.843 kg Body Mass Index (BMI) 21.7 ABG / Lab / Microbiology Data Result Diagrams: 05/15/21 22:00 05/15/21 22:00 D/C Instructions Discharge Diet: No restrictions Meaningful Use Info Meaningful Use Diagnoses (Choose all that apply): None applicable Discharge Plan Admission Admit Date/Time: 05/15/21 21:52 Primary Reason for Your Visit: alcohol withdrawal Attending Provider: Rito Kimbrough Primary Care Provider: Luis Riley Discharge Orders/Prescriptions Referrals / Follow Up: Alex Dewitt DO [STAFF PHYSICIAN] - Within 1 Month (abnormal liver tests. ) Luis Riley MD [Primary Care Provider] - Within 2 Weeks Disposition Disposition (needs filled in before D/C Order can be placed): Home, Self Care Charges/Coding Visit Charges Inpatient E&M: 84930 Disch Hosp
[2021-05-20] MEDS: Ketorolac 10 MG Tablet PO ×3 (09:39→21:21)
[2021-05-20] MEDS: Acetaminophen 500 MG Tablet PO ×2 (09:39→15:12)
[2021-05-20] MEDS: Folic Acid 1 MG Tablet PO (09:39)
[2021-05-20] MEDS: Thiamine Hydrochloride 100 MG Tablet PO (09:39)
[2021-05-20] MEDS: hydrOXYzine PAM 25 MG Capsule 50 MG PO ×2 (11:40→21:21)
[2021-05-20 15:03] VITALS: BP 101/74; PULSE 103; RESP 18; TEMP 36.8; O2SAT 95
[2021-05-20] MEDS: Nicotine Polacrilex 2 MG GUM PO ×2 (15:12→21:21)
[2021-05-20] MEDS: Gabapentin 300 MG Capsule PO (15:43)
[2021-05-20 21:12] VITALS: BP 108/72; PULSE 94; RESP 18; TEMP 36.8; O2SAT 93
[2021-05-20] MEDS: Dicyclomine 10 MG Capsule 20 MG PO (21:21)
[2021-05-20] MEDS: traZODone 100 MG Tablet PO (21:21)
[2021-05-21 03:33] VITALS: BP 93/64; PULSE 93; RESP 18; TEMP 36.7; O2SAT 95
[2021-05-21] MEDS: Dicyclomine 10 MG Capsule 20 MG PO (03:36)
[2021-05-21] MEDS: Ketorolac 10 MG Tablet PO ×2 (03:36→09:45)
[2021-05-21 08:25] VITALS: BP 89/63; PULSE 91; RESP 16; TEMP 36.5; O2SAT 94
[2021-05-21] MEDS: Folic Acid 1 MG Tablet PO (08:32)
[2021-05-21] MEDS: Thiamine Hydrochloride 100 MG Tablet PO (08:32)
[2021-05-21] MEDS: Acetaminophen 500 MG Tablet PO (08:32)
--- NOTE | 2021-05-21 09:02 | PCA ---
Basim from [facility] called, states that there are no beds available at their [place] location. States that the patient will be going to their [place] location and he will set up an [employer] transportation for patient for about 929. Will let primary RN know.
--- NOTE | 2021-05-21 09:14 | NURSING ---
talked with Natalia SPEARS navigator informed that legal secretary received call from [place] stating do not have any bed in [facility] but patient will go to [facility]. Natalia stated no issues with this when talked with family yesterday.
--- NOTE | 2021-05-21 09:28 | PCM.PN.HOSP ---
Subjective Subjective No events overnight. Patient unable to be discharged yesterday as there was no available beds available at [place]. Objective Data Objective Data Vital Signs: Vital Signs Temp Pulse Resp BP Pulse Ox 36.7 C 93 18 93/64 95 05/21/21 03:33 05/21/21 03:33 05/21/21 03:33 05/21/21 03:33 05/21/21 03:33 Oxygen Flow Rate (L/min) 2 Oxygen Delivery Method Room Air Weight: 74.843 kg Body Mass Index (BMI) 21.7 Lab / Micro Data Result Diagrams: 05/15/21 22:00 05/15/21 22:00 Physical Exam Const alert and no apparent distress Psych affect normal Mood & Affect: depressed Assessment & Plan Assessment/Plan (1) Alcohol withdrawal: QUALIFIERS: Complication of substance-induced condition: uncomplicated Qualified Code(s): F10.230 - Alcohol dependence with withdrawal, uncomplicated PLAN: 1. Acute alcohol withdrawal: Uncomplicated. Patient has completed phenobarbital. Plan is to patient to be discharged to [place] in stable condition. Discharge summary completed on the . Patient be discharged on the . Charges/Coding Visit Charges Inpatient E&M: 50834 Disch Hosp
== END 2021-05-21 09:54 | DRG 897 ==
LOC: ED 22:16 → MS3 05-16 00:35
PROVIDERS: Admitting Provider Internal Medicine; Emergency Provider Emergency Medicine; PCP Family Medicine
DX: F10.239 Alcohol dependence with withdrawal, unspecified (principal); E83.42 Hypomagnesemia; K70.10 Alcoholic hepatitis without ascites; E87.6 Hypokalemia; F17.210 Nicotine dependence, cigarettes, uncomplicated
CPT/HCPCS: 36415; 80053; 80307; 82077; 82977; 83690; 83735; 84100; 85025; 85610; 97802; 99283; 99406; J7120; A4216

== ENCOUNTER → 2021-07-26 | Outpatient (CLI) | payer MEDICAID, SELFPAY ==
[2021-07-26 12:36] LABS: Absolute Lymphocyte Count 2.29 X10^3/uL (0.83-4.51); Absolute Neutrophil Count 8.9 X10^3/uL (2.0-7.7); Basophil# 0.07 X10^3/uL; Basophil% 0.6 % (0-1); Eosinophil# 0.22 X10^3/uL; Eosinophils% 1.8 % (0-5); Hematocrit 45.9 % (40-54); Hemoglobin 15.2 g/dL (13.0-16.5); Lymphocyte # 2.29 X10^3/ul (0.83-4.51); Lymphocyte % 18.8 % (19-41); Mean Corp Hgb Conc 33.1 g/dL (32-36); Mean Corpuscular Hgb 32.5 pg (27.0-32.0); Mean Corpuscular Volume 98.1 fL (80-94); Mean Platelet Vol. 10.8 fl (6.2-12.0); Monocyte% 5.8 % (0-10); NRBC Flagged by Analyzer 0 % (0-5); Neutrophil # 8.85 X10^3/uL (2.7-7.7); Neutrophil % 72.8 % (47-70); Platelet Count 234 K/mm3 (150-450); RBC Distribution Width CV 14.1 % (11.6-14.6); RBC Distribution Width SD 50.4 fl (35.1-43.9); Red Blood Count 4.68 M/mm3 (4.6-6.2); White Blood Count 12.2 K/mm3 (4.4-11.0)
[2021-07-26 12:43] LABS: Erythrocyte Sedimentation Rate 13 mm/hr (0-20)
[2021-07-26 12:44] LABS: International Normalized Ratio 1.1; Prothrombin Time (Protime)PT. 13.7 SECONDS (11.7-14.9)
[2021-07-26 13:10] LABS: ALB/GLOB Ratio 0.8 RATIO (0.9-2.4); AST(SGOT) 23 U/L (15-37); Alanine Aminotransfer ALT/SGPT 15 U/L (16-61); Albumin, Serum 3.3 g/dL (3.2-5.0); Alkaline Phosphatase 119 U/L (45-117); Anion Gap 4 (5-15); BUN 7 mg/dL (7-18); BUN/Creat Ratio 9.8 RATIO (10-20); Calcium,Total 8.9 mg/dL (8.5-10.1); Chloride 106 mmol/L (98-107); Creatinine, Serum 0.71 mg/dL (0.70-1.30); EST Glomerular Filtration Rate 129 mL/min (>60); Est Glom Filt Rate - Afr Amer 156 mL/min (>60); Ferritin 52 ng/mL (26-388); Globulin 4.4 g/dL (2.2-4.2); Glucose 92 mg/dL (74-106); LDH 144 U/L (87-241); Potassium 3.7 mmol/L (3.5-5.1); Protein, Total 7.7 g/dL (6.4-8.2); Sodium Level 139 mmol/L (136-145)
[2021-07-26 13:16] LABS: Hemoglobin A1c 4.6 % (3.8-5.6)
[2021-07-26 14:11] LABS: HIV - WCH Non-Reactive (Nonreactive); Hepatitis C Antibody Non-Reactive (Nonreactive)
[2021-07-29 13:07] LABS: Anti-Centromere B Ab 0.2 AI (0.0-0.9); Anti-Chromatin <0.2 AI (0.0-0.9); Anti-Jo <0.2 AI (0.0-0.9); Anti-Scleroderma-70 AB <0.2 AI (0.0-0.9); RNP Ab 0.3 AI (0.0-0.9); SJOGREN'S Anti-SS-A test < 0.2 AI (0.0-0.9); SJOGREN'S Anti-SS-B test < 0.2 AI (0.0-0.9); Smith Ab <0.2 AI (0.0-0.9)
[2021-07-29 15:48] LABS: Anti-Mitochondrial AB <20.0 Units (0.0-20.0); Anti-dsDNA Ab 3 IU/mL (0-9)
== END | disposition home or self-care (01) ==
PROVIDERS: PCP Family Medicine; Visit Provider Internal Medicine Gastroenterology
DX: K76.9 Liver disease, unspecified (principal)
CPT/HCPCS: 36415; 80053; 80074; 82105; 82140; 82164; 82390; 82525; 82728; 83010; 83036; 83516; 83615; 85025; 85610; 85652; 86140; 86225; 86235; 86256; 86703; 86803; 87522; 87902

== ENCOUNTER 2021-08-14 10:06 | Emergency (ER) | payer MEDICAID, SELFPAY ==
[2021-08-14 10:06] VITALS: BP 117/78; PULSE 118; RESP 16; TEMP 36.5; O2SAT 98; BMI 21.7
--- NOTE | 2021-08-14 10:22 | RAD_ITS ---
STUDY: X-RAY - RIGHT TIBIA AND FIBULA REASON FOR EXAM: Male, 41 years old. Ankle and lower leg pain for 2 months. TECHNIQUE: 2 view(s) of the tibia and fibula were obtained on 3 images. COMPARISON: None. FINDINGS: Normal visualized tibia. Normal visualized fibula. The soft tissue structures are unremarkable. RAD/Tibia & Fibula 2 Views IMPRESSION: Normal x-ray examination of the tibia and fibula. Electronically Signed: Maurilio Sainz MD at 13:26 EDT ,
--- NOTE | 2021-08-14 10:22 | VDLE_ITS ---
Reason For Study: Swelling RIGHT LEFT GSV is normal. CFV is compressible, spontaneous, phasic, CFV is compressible, spontaneous, phasic, competent, and demonstrates normal competent and demonstrates normal augmentation. augmentation. FV is compressible, spontaneous, phasic, competent and demonstrates normal augmentation. POP V is compressible, spontaneous, phasic, competent and demonstrates normal augmentation. T/P Trunk is compressible. Rt PTV, Rt Perov, and Rt SoleusV are dilated and non compressible consistent with acute DVT. Procedure This is a venous duplex using B-mode, color flow and spectral Doppler. Exam performed portable in ED. A preliminary report was called and/or faxed to Dr. Condon. VL/Venous Duplex US, Unilateral Interpretation Summary Acute deep venous thrombosis right posterior tibial, peroneal, and soleus veins . Patent and compressible right great saphenous vein Normal flow patterns left common femoral vein Ordering Physician: Ewa Condon Referring Physician: Luis Riley Performed By: Keshia August, SHAJI, RVT
--- NOTE | 2021-08-14 10:22 | RAD_ITS ---
STUDY: X-RAY - RIGHT ANKLE REASON FOR EXAM: Male, 41 years old. Right ankle and distal lower leg pain for 2 months. TECHNIQUE: 3 view(s) of the ankle. COMPARISON: None. FINDINGS: Normal visualized distal tibia and fibula. Normal medial and lateral malleoli. Normal tibiotalar articulation and ankle mortise. Normal visualized talus and calcaneus. The visualized subtalar, talonavicular, calcaneocuboid and tarsal articulations are normal. The soft tissue structures are unremarkable. RAD/Ankle min 3 Views IMPRESSION: Normal x-ray examination of the ankle. Electronically Signed: Maurilio Sainz MD at 13:26 EDT ,
--- NOTE | 2021-08-14 10:24 | ED.VIS.LOWEX ---
HPI History of Present Illness Chief Complaint: Lower Extremity Injury Informant: patient Narrative Narrative: Patient is a 41-year-old male with history of alcohol abuse, hepatitis C and hepatic steatosis/hepatomegaly with possible liver cirrhosis presenting with right lower leg pain and swelling. Patient states he rolled his right ankle about a month and a half ago. After couple weeks it seemed to get better. All of a sudden 3 to 4 days ago he started having increased pain and swelling of his right distal leg/ankle region. He states he has not had any new trauma or injury. Intermittently he does get tingling of his toes which is what is really concerning him. He notes that he worked 12 hours last night and then came in for evaluation. Denies any fever or chills. No systemic symptoms. No other complaints at this time. [facility] Medical History Alcohol abuse Alcohol abuse with physiological dependence Alcohol dependence Anxiety Ascites Back pain Depression Migraine Smoker SOB (shortness of breath) Home Medications apixaban 5 mg tablet (Eliquis) 5 mg PO BID #74 tabs 08/14/21 [Rx Last Taken Unknown] Allergy/AdvReac Type Severity Reaction Status Date / Time No Known Allergies Allergy Verified 08/14/21 10:07 Family History Other Breast cancer Thyroid disorder Surgical History History of cholecystectomy Necks Fusion Social History household members: significant other Smoking Status: Current every day smoker tobacco type: cigarettes alcohol intake: current alcohol intake frequency: 3 or more drinks per day substance use type: does not use ROS ROS ED Constitutional Constitutional ED: Denies chills or fever(s) Eyes Eyes: Denies change in vision Cardiovascular Cardiovascular: Denies chest pain or palpitations Respiratory/Chest Respiratory/Chest: Denies cough or dyspnea Gastrointestinal Gastrointestinal: Denies abdominal pain, nausea or vomiting Musculoskeletal Musculoskeletal: Reports other Details: right lower leg pain and swelling Integumentary Denies Abrasions or rash Neurologic Neurologic: Reports paresthesias; Denies headache(s) Psychiatric Psychiatric: Denies anxiety EXAM Physical Exam Const Vital Signs: 08/14/21 10:06 08/14/21 11:49 08/14/21 15:22 Temperature 97.7 F L Temperature Source Temporal Pulse Rate 118 H 95 88 Respiratory Rate 16 18 18 Blood Pressure 117/78 123/86 H Blood Pressure Mean 91 98 Pulse Ox 98 Oxygen Delivery Method Room Air 08/14/21 15:23 Temperature Temperature Source Pulse Rate 88 Respiratory Rate 18 Blood Pressure 123/86 H Blood Pressure Mean Pulse Ox Oxygen Delivery Method Positive well nourished and well developed General Appearance ED: well developed and NAD HEENT Reports moist mucous membranes Eyes PERRL Eyes Narrative: No scleral icterus Neck full ROM and supple Chest Wall inspection of chest normal Resp normal respiratory effort and no retractions Cardio regular rate, regular rhythm and no murmurs GI non-distended Extremity full ROM Extremity Narrative: No bony tenderness of the foot or ankle. No significant pedal edema. Patient does have localized area of swelling and tenderness of the lateral distal fajardo. Normal Diaz test. No palpable cords. Neuro oriented x3, moves all extremities and no sensory deficits noted Psych mental status grossly normal Skin no wounds Skin Narrative: No area of fluctuance or induration appreciated. No lymphangitic streaking. No area of erythema or petechia Lesions: no lesions Rashes: no rashes MDM MDM MDM Narrative Medical decision making narrative: Patient evaluated for atraumatic right lower leg swelling. She denies any associated chest pain, shortness of breath or difficulty breathing. X-ray obtained interpreted by myself as well as radiology do not show any acute fracture. He does have a positive DVT study of the calf including the posterior tibial vein, peroneal and soleus veins. Upon review of his vital signs patient was tachycardic upon arrival. At that there is concern for possible pulmonary emboli. He does mention has been more fatigued lately and has had some exercise intolerance. He also mentions that a couple days ago he did have pain in his right ribs that he thought was from a popped rib. He is not hypoxic. PE work-up is ordered as well as baseline labs especially given his known liver disease. Patient's hemoglobin is mildly elevated which is consistent with his tobacco use. His INR is stable with a PT of 15.6. Normal kidney function. High since he troponin is negative and BNP is normal. This goes against any right heart strain. CTA of the chest does show acute bilateral pulmonary emboli but no signs of right heart strain and possible small right lower lobe pulmonary infarct. Discussed all potential for admission with the hospitalist as well as the patient. Patient would prefer to go home and hospitalist felt that that was reasonable as well. Patient is ambulated the emergency room does not have any hypoxia or desaturation. Case is discussed with his GI doctor given his liver history. Dr. Dewitt did add on a hypercoagulability panel. This is drawn for the patient left. Patient is given first dose of Eliquis in the ER as well as an Eliquis starter pack coupon. Patient counseled on the risk of bleeding on Eliquis however he understands that the benefits outweigh the risk. Patient denies any history of GI bleeding or blood in his stool. Patient discharged home in stable condition. Lab Data Attestation: I reviewed the patient's lab results. Labs: Laboratory Results - last 24 hr 08/14/21 08/14/21 08/14/21 11:45 11:45 11:45 WBC 9.1 RBC 5.39 Hgb 16.8 H Hct 50.9 MCV 94.4 H MCH 31.2 MCHC 33.0 RDW Std Deviation 48.6 H RDW Coeff of Margaret 14.2 Plt Count 129 L MPV 11.4 PT 15.6 H INR 1.3 Sodium 137 Potassium 3.1 L Chloride 101 Carbon Dioxide 31.0 Anion Gap 5 BUN 2 L Creatinine 0.79 Estim Creat Clear Calc 130.26 Est GFR (MDRD) Af Amer 140 Est GFR (MDRD) Non-Af 115 BUN/Creatinine Ratio 2.5 L Glucose 115 H Calcium 8.8 Troponin I High Sens < 3 L B-Natriuretic Peptide 08/14/21 11:45 WBC RBC Hgb Hct MCV MCH MCHC RDW Std Deviation RDW Coeff of Margaret Plt Count MPV PT INR Sodium Potassium Chloride Carbon Dioxide Anion Gap BUN Creatinine Estim Creat Clear Calc Est GFR (MDRD) Af Amer Est GFR (MDRD) Non-Af BUN/Creatinine Ratio Glucose Calcium Troponin I High Sens B-Natriuretic Peptide 8.3 Radiography Diagnostic Testing: Clinical Impression(s) from Imaging Studies Ankle X-Ray 08/14/21 10:22 IMPRESSION: Normal x-ray examination of the ankle. Electronically Signed: Maurilio Sainz MD at 13:26 EDT , Tibia/Fibula X-Ray 08/14/21 10:22 IMPRESSION: Normal x-ray examination of the tibia and fibula. Electronically Signed: Maurilio Sainz MD at 13:26 EDT , Venous Doppler Study 08/14/21 10:22 Interpretation Summary Acute deep venous thrombosis right posterior tibial, peroneal, and soleus veins. Patent and compressible right great saphenous vein Normal flow patterns left common femoral vein Ordering Physician: Ewa Condon Referring Physician: Luis Riley Performed By: Keshia August, KRISS, RVT Chest CTA 08/14/21 11:26 IMPRESSION: 1. Acute bilateral pulmonary embolism. 2. No right heart strain. 3. Possible small right lower lobe pulmonary infarction. Electronically Signed: Mickey Carrasco MD at 12:42 EDT , ADDENDUM: 08/14/21 1251 IMPRESSION: 1. Acute bilateral pulmonary embolism. 2. No right heart strain. 3. Possible small right lower lobe pulmonary infarction. N.B. : The above Results were Read Back by Mickey Carrasco MD to Ewa Condon MD, and understanding confirmed on 08/14/2021 12:44:17 (ET). Electronically Signed: Mickey Carrasco MD at 12:42 EDT , Discharge Plan Triage Chief Complaint: Lower Extremity Injury ED Provider: Ewa Condon Dx/Rx/DC Orders Clinical Impression: Bilateral pulmonary embolism, Acute DVT of right tibial vein, Pulmonary embolus with infarction Instructions: Embolism Pulmonary Dc, ED Deep Vein Thrombosis (DVT) Prescriptions: New Eliquis 5 mg tablet 5 mg PO BID Qty: 74 0RF Rx Instructions: 10 mg twice a day for the first week. Then 5 mg twice a day. Primary Care Provider: Luis Riley Referrals: Luis Riley MD [Primary Care Provider] - Mari Lopez NP, [employer] [Nurse Practitioner] - As soon as possible Disposition Disposition: Home, Self Care Discharge Date/Time: 08/14/21 15:23
--- NOTE | 2021-08-14 11:26 | CT_ITS ---
We are attempting to reach an attending provider to discuss findings. An addendum with communication details will be sent when the communication is complete. EXAM: CT ANGIOGRAPHY CHEST WITHOUT AND WITH INTRAVENOUS CONTRAST CLINICAL INDICATION: tachycardia , + DVT TECHNIQUE: Helically acquired angiography images were obtained of the chest without and with intravenous contrast. This CT exam was performed using one or more of the following dose reduction techniques: automated exposure control, adjustment of the mA and/or kV according to patient size, and/or use of iterative reconstruction technique. This report was created using [employer] report generation technology. MIP reconstructed images were created and reviewed. CONTRAST: IV 100mL [id number] COMPARISON: None. FINDINGS: PULMONARY ARTERIES: Filling defects are noted within the upper and lower lobe pulmonary arteries consistent with acute pulmonary embolism. AORTA: Unremarkable. Normal in caliber. No evidence of dissection. GREAT VESSELS OF AORTIC ARCH: Unremarkable. Normal in caliber. No evidence of dissection. LUNGS AND PLEURAL SPACES: Peripheral density at the right lung base may represent an acute pulmonary infarction. Postinflammatory changes noted at both lung apices Lungs are otherwise clear. No mass. No pleural effusion or thickening. No pneumothorax. HEART: No evidence of right heart strain. No pericardial effusion. MEDIASTINUM: Unremarkable. No mediastinal or hilar adenopathy. Esophagus is unremarkable. No hiatal hernia. THYROID: Unremarkable. No thyroid lesions. BONES/JOINTS: Unremarkable. No suspicious lytic or blastic abnormality. CT/CTA Chest W/WO Contrast IMPRESSION: 1. Acute bilateral pulmonary embolism. 2. No right heart strain. 3. Possible small right lower lobe pulmonary infarction. Electronically Signed: Mickey Carrasco MD at 12:42 EDT ,
[2021-08-14 11:49] VITALS: PULSE 95; RESP 18
[2021-08-14 11:58] LABS: Hematocrit 50.9 % (40-54); Hemoglobin 16.8 g/dL (13.0-16.5); Mean Corpuscular Hgb 31.2 pg (27.0-32.0); Mean Corpuscular Volume 94.4 fL (80-94); Mean Platelet Vol. 11.4 fl (6.2-12.0); Platelet Count 129 K/mm3 (150-450); RBC Distribution Width CV 14.2 % (11.6-14.6); RBC Distribution Width SD 48.6 fl (35.1-43.9); Red Blood Count 5.39 M/mm3 (4.6-6.2); White Blood Count 9.1 K/mm3 (4.4-11.0)
[2021-08-14] MEDS: Ibuprofen 200 MG Tablet 400 MG PO (11:59)
[2021-08-14 12:06] LABS: International Normalized Ratio 1.3; Prothrombin Time (Protime)PT. 15.6 SECONDS (11.7-14.9)
[2021-08-14 12:15] LABS: Anion Gap 5 (5-15); BUN 2 mg/dL (7-18); BUN/Creat Ratio 2.5 RATIO (10-20); Calcium,Total 8.8 mg/dL (8.5-10.1); Chloride 101 mmol/L (98-107); Creatinine, Serum 0.79 mg/dL (0.70-1.30); EST Glomerular Filtration Rate 115 mL/min (>60); Est Glom Filt Rate - Afr Amer 140 mL/min (>60); Estimated Creatinine Clearance 130.26 ml/min; Glucose 115 mg/dL (74-106); Potassium 3.1 mmol/L (3.5-5.1); Sodium Level 137 mmol/L (136-145); Troponin-I HS < 3 pg/mL (3.0-78.0)
[2021-08-14 12:22] LABS: BNP,B-Type NATRIURETIC PEPTIDE 8.3 pg/mL (0-100)
[2021-08-14 14:16] VITALS: O2SAT 100
[2021-08-14 15:22] VITALS: BP 123/86; PULSE 88; RESP 18
[2021-08-14 15:23] VITALS: BP 123/86; PULSE 88; RESP 18
[2021-08-14] MEDS: APIXABAN 5 MG TABLET 10 MG PO (15:29)
[2021-08-16 16:14] LABS: Anti-Cardiolipin Ab, IgA, Qn < 9 APL U/mL (0-11); Anti-Cardiolipin Ab, IgG, Qn < 9 GPL U/mL (0-14); Anti-Cardiolipin Ab, IgM, Qn 28 MPL U/mL (0-12); Carbohydrate AG 19-9 12 U/mL (0-35)
[2021-08-16 20:41] LABS: Activated Protein C Resistance 2.6 ratio (2.2-3.5)
[2021-08-20 21:07] LABS: Dilute Prothrombin Time (dPT) 48.6 sec (0.0-47.6); Dilute Russell Viper Venom 45.2 sec (0.0-47.0); Hexagonal Phase Phospholipid 2 4 sec (0-11); PTT-LA 109.9 sec (0.0-51.9); PTT-LA Mix 60.2 sec (0.0-48.9); Protein S, Free 121 % (61-136); Thrombin Time 17.8 sec (0.0-23.0); dPT Confirm Ratio 1.08 Ratio (0.00-1.34)
[2021-08-20 21:38] LABS: Antithrombin 3 Function 85 % (75-135); Carcinoembryonic Antigen 6.5 ng/mL (0.0-4.7); Interpretation Comment: (.); Protein C Antigen 42 % (60-150); Protein C, Functional 44 % (73-180); Protein S, Funtional 104 % (63-140); Protein S, Total 98 % (60-150)
== END 2021-08-14 15:23 | disposition home or self-care (01) ==
PROVIDERS: Internal Medicine Gastroenterology; Emergency Provider Emergency Medicine; PCP Family Medicine; Visit Provider Emergency Medicine
DX: I26.99 Other pulmonary embolism without acute cor pulmonale (principal); I82.441 Acute embolism and thrombosis of right tibial vein; I82.451 Acute embolism and thrombosis of right peroneal vein; I82.461 Acute embolism and thrombosis of right calf muscular vein; K76.0 Fatty (change of) liver, not elsewhere classified; R16.0 Hepatomegaly, not elsewhere classified; F17.210 Nicotine dependence, cigarettes, uncomplicated; Z79.01 Long term (current) use of anticoagulants
CPT/HCPCS: 71275; 73590; 73610; 80048; 81241; 82378; 83880; 84484; 85027; 85300; 85302; 85303; 85305; 85306; 85307; 85610; 86147; 86301; 93971; 99284; Q9967; A4216

== ENCOUNTER → 2021-08-21 | Outpatient (CLI) | payer MEDICAID, SELFPAY ==
--- NOTE | 2021-08-21 07:22 | MRI_ITS ---
STUDY: MR MRCP WITHOUT CONTRAST REASON FOR EXAM: Male, 41 years old. MRCP, disorder of liver TECHNIQUE: Standard MRCP technique was utilized. 3-D postprocessing images were reviewed. COMPARISON: None. FINDINGS: Gall Bladder: Gall bladder is surgically absent. Cystic duct: Normal with no demonstrated fixed filling defect. Intrahepatic ducts: Normal visualized intrahepatic ducts with no demonstrated fixed filling defect, dilation or stricture. Common hepatic duct: Normal with no demonstrated fixed filling defect, dilation or stricture. Common bile duct: Normal with no demonstrated fixed filling defect, dilation or stricture. Pancreatic duct: Normal with no demonstrated fixed filling defect, dilation or stricture. MRI/MRCP Abdomen without Contrast IMPRESSION: Normal MR Cholangiopancreatography (MRCP). Electronically Signed: Ender Willard MD at 23:43 EDT ,
--- NOTE | 2021-08-21 07:22 | US_ITS ---
STUDY: ABDOMINAL ULTRASOUND - ELASTOGRAPHY REASON FOR VISIT: Male, 41 years old. Hepatic disease. TECHNIQUE: Liver stiffness measurements were obtained on a [employer] RS 85 ultrasound machine using a CA 1-7 probe following the SRU guidelines. 3 measurements were obtained using a 2-D-SWE method. The IQR/M was 17% suggesting a quality data set. TECHNICAL QUALITY: Adequate. COMPARISON: Comparison is made with prior study done earlier today. FINDINGS: Liver: Fatty infiltration of the liver. Median liver stiffness measured 15.5 kPa. US/Elastography Parenchyma/Organ IMPRESSION: Liver stiffness measures 15.5 kPa compatible with F3-F4 (Moderate to severe liver fibrosis) Metavir score. Electronically Signed: Scooter English MD at 15:41 EDT ,
--- NOTE | 2021-08-21 07:22 | US_ITS ---
STUDY: ABDOMINAL ULTRASOUND - RIGHT UPPER QUADRANT REASON FOR VISIT: Male, 41 years old hepatic disease. TECHNIQUE: Ultrasound evaluation of the right upper quadrant was performed with real-time and static barrera-scale imaging. TECHNICAL QUALITY: Adequate. COMPARISON: None. FINDINGS: Liver: The liver is enlarged and measures 19.5 cm. There is increased echogenicity consistent with fatty infiltration. The bile ducts are within normal limits. There is hepatic color flow. The direction of portal flow is hepatopetal. There is no demonstrated mass lesion. Gallbladder: The patient is status post cholecystectomy. Common Bile Duct (C.B.D.): The common bile duct measures 5.5 mm. Pancreas: Normal size of the head, body and tail of the pancreas. There is normal echogenicity of the pancreas. There is no demonstrated pancreatic mass or cyst. Right Kidney: Normal size of the right kidney. The right kidney measures 11.9 cm x 5.1 cm x 3.9 cm. Normal renal cortex. The right cortex measures 1.7 cm. There is no demonstrated renal mass or cyst. There is no right hydronephrosis. US/Abdomen Limited IMPRESSION: Hepatomegaly and fatty eventration of the liver. Electronically Signed: Scooter English MD at 15:39 EDT ,
== END | disposition home or self-care (01) ==
PROVIDERS: PCP Family Medicine; Referring Provider Internal Medicine Gastroenterology; Visit Provider Internal Medicine Gastroenterology
DX: K76.9 Liver disease, unspecified (principal)
CPT/HCPCS: 74181; 76705; 76981

== ENCOUNTER 2021-11-11 19:10 | Emergency (ER) | payer MEDICAID, SELFPAY ==
[2021-11-11 19:11] VITALS: BP 108/86; PULSE 110; RESP 18; TEMP 36.9; O2SAT 98; BMI 21.7
--- NOTE | 2021-11-11 21:37 | EKG12_ITS ---
Test Reason : DYSRHYTHMIA Blood Pressure : / mmHG Vent. Rate : 107 BPM Atrial Rate : 107 BPM P-R Int : 126 ms QRS Dur : 084 ms QT Int : 348 ms P-R-T Axes : 069 067 057 degrees QTc Int : 464 ms Sinus tachycardia Otherwise normal ECG Confirmed by ANA MILLER, ANABEL ([id number]), order editor GRANT GRIDER ([id number]) on 11/13/2021 11:05:34 AM Referred By: KEON Confirmed By:ANABEL PEREZ MD
--- NOTE | 2021-11-11 21:38 | EDS_ITS ---
HPI History of Present Illness Chief Complaint: General Illness Detail of Chief Complaint: Chest pain, abdominal pain numbness both legs and feet Informant: patient Onset/Context/Timing Onset: Yesterday (Chest pain occurred yesterday) and Weeks (Feet have been numb for 4 weeks and legs for 2 weeks) Context: Sudden Onset Timing: Continuous (Regarding the numbness to his right and left lower extremity) and Intermittent (Chest pain was intermittent) Quality: Pressure tight sensation Location: Mid sternum Current Severity: Gone (Chest pain is presently gone) Maximum Severity: Severe Worsened by: Nothing Relieved by: Nothing Associated Symptoms Associated Symptoms: Dyspnea, diaphoresis, radiation to both shoulders and nausea with vomiting Narrative Narrative: Patient is a 41-year-old male with history of PE on Eliquis. States he has not missed any of his medications. He is a smoker. He denies history coronary disease, hypertension, diabetes or hyperlipidemia. Patient denies history of diabetes or peripheral arterial disease. Patient denies fever, chills night sweats. Patient denies headache, visual, ocular auditory symptoms. Patient's chest discomfort lasted for some time. Does not know the exact duration. He states he closed his eyes and try to go to sleep. When he awoke this morning did not have pain. He denies history of hiatal hernia. He denies hematemesis, black or maroon- colored stool. He does have history of pancreatitis. He had a drink several hours prior to coming in. He denies leg pain, swelling discoloration. Prior similar symptoms: No Recent Illness/Hospitalization: No [facility] Medical History (Updated 11/12/21 @ 00:[address] Steve Cardona MD) Alcohol abuse Alcohol abuse with physiological dependence Alcohol dependence Anxiety Ascites Back pain Depression Kidney stones Migraine Smoker SOB (shortness of breath) Home Medications apixaban 5 mg tablet (Eliquis) 5 mg PO BID #60 tabs 09/16/21 [Rx Last Taken Unknown] buprenorphine 8 mg-naloxone 2 mg sublingual tablet 4 tab sublingual BID 11/11/21 [History Last Taken Unknown] Allergy/AdvReac Type Severity Reaction Status Date / Time No Known Allergies Allergy Verified 11/11/21 19:11 Family History Other Breast cancer Thyroid disorder Surgical History History of cholecystectomy History of foot surgery History of hand surgery History of hernia repair History of surgery on left wrist Necks Fusion Social History household members: significant other Smoking Status: Current every day smoker tobacco type: cigarettes alcohol intake: current alcohol intake frequency: a few times a month substance use type: does not use seatbelt use: always do you feel safe at home: Yes ROS ROS ED Constitutional Constitutional ED: Denies chills, fever(s), subjective, sweats or weight loss Eyes Eyes: Denies blurry vision, change in vision or diplopia ENT ENT ED: Denies ear pain, rhinorrhea or sore throat Cardiovascular Cardiovascular: Reports chest pain; Denies orthopnea, palpitations, paroxysmal nocturnal dyspnea or racing heartbeat Respiratory/Chest Respiratory/Chest: Reports dyspnea; Denies cough, dyspnea on exertion, orthopnea or paroxysmal nocturnal dyspnea Gastrointestinal Gastrointestinal: Reports diarrhea, nausea and vomiting; Denies abdominal pain, constipation or melena Genitourinary Genitourinary ED: Denies dysuria, hematuria or urinary frequency Musculoskeletal Musculoskeletal: Denies arthralgias, back pain, myalgias or neck pain Integumentary Denies abscess, Abrasions or rash Neurologic Neurologic: Reports paresthesias RLE and LLE; Denies headache(s) or weakness Psychiatric Psychiatric: Reports anxiety and depression; Denies suicidal ideation Endocrine Endocrinology: Reports cold intolerance and heat intolerance Hematologic/Lymphatic Hematologic/Lymphatic: Denies easy bleeding or easy bruising EXAM Physical Exam Const Vital Signs: 11/11/21 19:11 11/11/21 21:47 Temperature 98.4 F Temperature Source Temporal Pulse Rate 110 H Respiratory Rate 18 Respiratory Pattern Normal Blood Pressure 108/86 H Blood Pressure Mean 93 Pulse Ox 98 Oxygen Delivery Method Room Air Positive well nourished and well developed General Appearance ED: well developed and NAD; Negative for cyanotic, diaphoretic or pallor HEENT Reports dry mucous membranes HEENT Narrative: Ears normal. Nares patent. Uvula midline. No deviation tongue with protrusion. No erythema or exudate the posterior pharynx. Head is atraumatic normocephalic Mouth ED: Yes dry mucous membranes Mouth: dry mucous membranes Eyes PERRL and EOMs intact bilaterally General Eye ED: Negative for pale conjunctiva or scleral icterus Neck no lymphadenopathy, supple and no JVD Chest Wall inspection of chest normal and palpation of chest normal Resp normal respiratory effort and clear to auscultation bilaterally Cardio regular rate, regular rhythm, S1 normal heart sound, S2 normal heart sound and no murmurs GI normal to inspection, nondistended, normoactive bowel sounds, non-distended and no masses; Negative for non-tender or hepatosplenomegaly Auscultation: hypoactive bowel sounds Palpation: tender epigastric and LUQ Back/Spine no CVA tenderness Cervical Spine: Negative for cervical spine tenderness Thoracic Spine / Upper Back: Negative for thoracic spinal tenderness Lumbar Spine / Lower Back: Negative for lumbar spinal tenderness Extremity normal to inspection Extremity Narrative: Patient does have hair on his toes. DP and PT pulse are palpable. There is decreased amount of hair noted lower portion of the right and left leg. General Extremety ED: Negative for edema or tenderness General Extremity: Negative for edema Neuro oriented x3, CN's II-XII intact bilaterally and no sensory deficits noted Sensorium / Orientation: alert Motor Exam: strength 5/5 throughout Psych mental status grossly normal Skin no rashes or lesions noted, no wounds and skin turgor normal General Skin Exam: Negative for jaundice or pallor MDM MDM MDM Narrative Medical decision making narrative: Patient's history is concerning for cardiac chest pain versus noncardiac chest pain. EKG, troponin and 2-hour troponin were ordered. Also chest x-ray. Since he does have history of pancreatitis with epigastric pain and recent heavy drinking will obtain lipase as well. Patient did not receive aspirin since he is on anticoagulant and reports compliance. Lab Data Attestation: I reviewed the patient's lab results. Lab results narrative: CBC is unremarkable. Comprehensive metabolic panel is remarkable for an elevated AST, ALT and alkaline phosphatase. Laboratory results are consistent with alcoholism. First troponin is normal at 4. 2 hours pending. Alcohol is 279. First troponin is 4. 2-hour troponin is 5. Delta is 1 and both troponins are less than 7. Negative predictive value is 100%. Patient is discharged home with appropriate home-going instructions. Labs: Laboratory Results - last 24 hr 11/11/21 11/11/21 11/11/21 21:57 22:00 22:00 WBC 8.1 RBC 5.01 Hgb 16.3 Hct 46.0 MCV 91.8 MCH 32.5 H MCHC 35.4 RDW Std Deviation 74.6 H RDW Coeff of Margaret 23.2 H Plt Count 125 L MPV 11.0 Immature Gran % (Auto) 0.400 Neut % (Auto) 64.6 Lymph % (Auto) 24.9 Pratt % (Auto) 9.0 Eos % (Auto) 0.4 Baso % (Auto) 0.7 Absolute Neuts (auto) 5.3 Absolute Lymphs (auto) 2.02 Nucleated RBC % 0 Differential Comment SCANNED Anisocytosis 2+ Microcytosis 1+ Macrocytosis 1+ Sodium 139 Potassium 3.0 L Chloride 98 Carbon Dioxide 31.0 Anion Gap 10 BUN 4 L Creatinine 0.77 Estim Creat Clear Calc 133.65 Est GFR (MDRD) Af Amer 143 Est GFR (MDRD) Non-Af 118 BUN/Creatinine Ratio 5.2 L Glucose 108 H Calcium 8.7 Total Bilirubin 2.30 H AST 241 H ALT 94 H Alkaline Phosphatase 234 H Troponin I High Sens 4 Total Protein 7.9 Albumin 3.0 L Globulin 4.9 H Albumin/Globulin Ratio 0.6 L Lipase 122 Ethyl Alcohol POC Glucose 113 H 11/11/21 11/11/21 22:00 23:55 WBC RBC Hgb Hct MCV MCH MCHC RDW Std Deviation RDW Coeff of Margaret Plt Count MPV Immature Gran % (Auto) Neut % (Auto) Lymph % (Auto) Pratt % (Auto) Eos % (Auto) Baso % (Auto) Absolute Neuts (auto) Absolute Lymphs (auto) Nucleated RBC % Differential Comment Anisocytosis Microcytosis Macrocytosis Sodium Potassium Chloride Carbon Dioxide Anion Gap BUN Creatinine Estim Creat Clear Calc Est GFR (MDRD) Af Amer Est GFR (MDRD) Non-Af BUN/Creatinine Ratio Glucose Calcium Total Bilirubin AST ALT Alkaline Phosphatase Troponin I High Sens 5 Total Protein Albumin Globulin Albumin/Globulin Ratio Lipase Ethyl Alcohol 279.0 POC Glucose Radiography Chest X-Ray - ED: 2 View and Read by ED Physician (2 view chest x-ray reveals minimal chronic changes. Cardiac silhouette and size normal. Perihilar region normal. Ostia structures are normal. The film was independently reviewed and interpreted by me.) Diagnostic Testing: Clinical Impression(s) from Imaging Studies Chest X-Ray 11/11/21 22:16 IMPRESSION: No acute disease. Electronically Signed: David Morejon MD at 23:03 EDT , Discharge Plan Triage Chief Complaint: General Illness ED Provider: Steve Cardona Dx/Rx/DC Orders Clinical Impression: Chest pressure, Acute DVT of right tibial vein, Protein C deficiency, Alcohol intoxication with blood alcohol level 0.08-0.29, Alcoholic liver disease Instructions: ED Chest Pain, Noncardiac Prescriptions: No Action buprenorphine-naloxone 8-2 mg tablet, sublingual 4 tab SUBLINGUAL BID Label Comments: DISSOLVE ONE TABLET UNDER THE TONGUE DAILY Eliquis 5 mg tablet 5 mg PO BID Qty: 60 2RF Rx Instructions: 10 mg twice a day for the first week. Then 5 mg twice a day. Primary Care Provider: Luis Riley Referrals: Luis Riley MD [Primary Care Provider] - 3-5 Days if not improving Disposition Disposition: Home, Self Care
[2021-11-11] MEDS: 0.9% Normal Saline 1,000 ML 1000 ML IV (21:59)
[2021-11-11 22:13] LABS: Absolute Lymphocyte Count 2.02 X10^3/uL (0.83-4.51); Absolute Neutrophil Count 5.3 X10^3/uL (2.0-7.7); Basophil# 0.06 X10^3/uL; Basophil% 0.7 % (0-1); Eosinophil# 0.03 X10^3/uL; Eosinophils% 0.4 % (0-5); Hemoglobin 16.3 g/dL (13.0-16.5); Lymphocyte # 2.02 X10^3/ul (0.83-4.51); Lymphocyte % 24.9 % (19-41); Mean Corp Hgb Conc 35.4 g/dL (32-36); Mean Corpuscular Hgb 32.5 pg (27.0-32.0); Mean Corpuscular Volume 91.8 fL (80-94); Monocyte# 0.73 X10^3/uL; NRBC Flagged by Analyzer 0 % (0-5); Neutrophil # 5.25 X10^3/uL (2.7-7.7); Neutrophil % 64.6 % (47-70); POSITIVE MORPHOLOGY YES; Platelet Count 125 K/mm3 (150-450); RBC Distribution Width CV 23.2 % (11.6-14.6); RBC Distribution Width SD 74.6 fl (35.1-43.9); Red Blood Count 5.01 M/mm3 (4.6-6.2); White Blood Count 8.1 K/mm3 (4.4-11.0)
--- NOTE | 2021-11-11 22:16 | RAD_ITS ---
EXAM: XR CHEST, 2 VIEWS CLINICAL INDICATION: Chest pain TECHNIQUE: Frontal and lateral views of the chest. This report was created using [employer] report generation technology. COMPARISON: 12/13/2018. FINDINGS: LUNGS AND PLEURAL SPACES: Unremarkable. No consolidation or edema. No pneumothorax. No effusion. HEART: Unremarkable. Cardiac silhouette not enlarged. MEDIASTINUM: Central airways and mediastinal contour are unremarkable. BONES/JOINTS: Cervicothoracic fusion hardware identified. SOFT TISSUES: Unremarkable. UPPER ABDOMEN: Right upper quadrant surgical clips are identified. RAD/Chest PA and Lateral IMPRESSION: No acute disease. Electronically Signed: David Morejon MD at 23:03 EDT ,
[2021-11-11 22:21] LABS: Bedside Glucose 113 mg/dL (74-106)
[2021-11-11 22:23] LABS: Differential Indicated SCAN CRITERIA MET
[2021-11-11 22:31] LABS: ALB/GLOB Ratio 0.6 RATIO (0.9-2.4); AST(SGOT) 241 U/L (15-37); Alanine Aminotransfer ALT/SGPT 94 U/L (16-61); Alkaline Phosphatase 234 U/L (45-117); Anion Gap 10 (5-15); BUN 4 mg/dL (7-18); BUN/Creat Ratio 5.2 RATIO (10-20); Calcium,Total 8.7 mg/dL (8.5-10.1); Chloride 98 mmol/L (98-107); Creatinine, Serum 0.77 mg/dL (0.70-1.30); EST Glomerular Filtration Rate 118 mL/min (>60); Est Glom Filt Rate - Afr Amer 143 mL/min (>60); Estimated Creatinine Clearance 133.65 ml/min; Globulin 4.9 g/dL (2.2-4.2); Glucose 108 mg/dL (74-106); Lipase 122 U/L (73-393); Protein, Total 7.9 g/dL (6.4-8.2); Sodium Level 139 mmol/L (136-145); Troponin-I HS 4 pg/mL (3.0-78.0)
[2021-11-11 23:11] LABS: Anisocytosis 2+; Differential Comment SCANNED
[2021-11-11 23:12] LABS: Macrocytosis 1+; Microcytosis 1+
[2021-11-12 00:36] VITALS: PULSE 113
== END 2021-11-12 00:37 | disposition home or self-care (01) ==
PROVIDERS: Emergency Provider Emergency Medicine; PCP Family Medicine; Visit Provider Emergency Medicine
DX: R07.89 Other chest pain (principal); K70.9 Alcoholic liver disease, unspecified; F10.129 Alcohol abuse with intoxication, unspecified; I82.441 Acute embolism and thrombosis of right tibial vein; D68.59 Other primary thrombophilia; R11.2 Nausea with vomiting, unspecified; R19.7 Diarrhea, unspecified; R10.31 Right lower quadrant pain; R10.32 Left lower quadrant pain; R06.00 Dyspnea, unspecified; F17.210 Nicotine dependence, cigarettes, uncomplicated; Z79.01 Long term (current) use of anticoagulants; Z86.711 Personal history of pulmonary embolism
CPT/HCPCS: 71046; 80053; 82077; 82962; 83690; 84484; 85025; 93005; 96360; 96361; 99284; J7030; A4216

== ENCOUNTER 2021-11-15 15:53 | Emergency (ER) | payer BC, MEDICAID, SELFPAY ==
[2021-11-15 15:54] VITALS: BP 114/90; PULSE 99; RESP 18; TEMP 36.7; O2SAT 97; BMI 20.4
--- NOTE | 2021-11-15 16:16 | EX.ED.DYSGE1 ---
HPI History of Present Illness Chief Complaint: General Illness Narrative Narrative: 41-year-old male presenting with nausea and vomiting. Patient was seen here on Thursday with similar nausea. He states at that time he had some shortness of breath as well. He had a normal chest x-ray and a normal cardiac work-up. His blood work was within normal limits. Apparently he was discharged home with nothing for nausea. He called his primary care physician today for a follow-up appointment and he was referred back to the emergency room. Patient states that he still feels the same level of shortness of breath mildly. He does have a history of DVT but has been anticoagulated on Eliquis since July and has not missed any doses. He denies any black or bloody stools. He has not had a fever. He denies any abdominal pain. He states he is making urine. He states he has had a bowel movement yesterday. [facility] Medical History Alcohol abuse Alcohol abuse with physiological dependence Alcohol dependence Anxiety Ascites Back pain Depression Kidney stones Migraine Smoker SOB (shortness of breath) Home Medications buprenorphine 8 mg-naloxone 2 mg sublingual tablet 4 tab sublingual BID 11/11/21 [History Last Taken Unknown] apixaban 5 mg tablet (Eliquis) 5 mg PO BID 11/15/21 [History Last Taken Unknown] omeprazole 40 mg capsule,delayed release 40 mg PO DAILY #30 caps 11/15/21 [Rx Last Taken Unknown] ondansetron 4 mg disintegrating tablet 4 mg PO Q8H PRN nausea and vomiting #20 tabs 11/15/21 [Rx Last Taken Unknown] promethazine 25 mg tablet 25 mg PO TID PRN nausea and vomiting #20 tabs 11/15/21 [Rx Last Taken Unknown] sucralfate 100 mg/mL oral suspension (Carafate) 10 ml PO BID PRN epigastric pain #400 mL 11/15/21 [Rx Last Taken Unknown] Allergy/AdvReac Type Severity Reaction Status Date / Time No Known Allergies Allergy Verified 11/15/21 16:05 Family History Other Breast cancer Thyroid disorder Surgical History History of cholecystectomy History of foot surgery History of hand surgery History of hernia repair History of surgery on left wrist Necks Fusion Social History household members: significant other Smoking Status: Current every day smoker tobacco type: cigarettes alcohol intake: current alcohol intake frequency: a few times a month substance use type: does not use seatbelt use: always do you feel safe at home: Yes ROS ROS ED Constitutional Constitutional ED: Denies chills or fever(s) Eyes Eyes: Denies change in vision ENT ENT ED: Denies rhinorrhea or sore throat Cardiovascular Cardiovascular: Denies chest pain or palpitations Respiratory/Chest Respiratory/Chest: Denies cough or dyspnea Gastrointestinal Gastrointestinal: Reports nausea and vomiting; Denies abdominal pain, constipation or diarrhea Genitourinary Genitourinary ED: Denies dysuria or hematuria Musculoskeletal Musculoskeletal: Denies arthralgias Integumentary Denies abscess or Abrasions Neurologic Neurologic: Denies headache(s) or paresthesias Psychiatric Psychiatric: Denies anxiety or depression EXAM Physical Exam Const Vital Signs: 11/15/21 15:54 11/15/21 16:03 11/15/21 19:06 Temperature 98.0 F Temperature Source Temporal Pulse Rate 99 95 Respiratory Rate 18 18 Respiratory Effort Normal Non-Labored Respiratory Pattern Normal Blood Pressure 114/90 H 126/77 H Blood Pressure Mean 98 93 Pulse Ox 97 96 Oxygen Delivery Method Room Air Room Air Positive well nourished General Appearance ED: NAD; Negative for pallor HEENT Reports moist mucous membranes Negative for trauma Eyes PERRL and EOMs intact bilaterally General Eye ED: Negative for pale conjunctiva or scleral icterus Chest Wall inspection of chest normal Resp normal respiratory effort and clear to auscultation bilaterally Auscultation: Negative for rales, rhonchi or wheezes Cardio regular rate and regular rhythm GI normal to inspection, nondistended, normoactive bowel sounds Palpation: soft Neuro oriented x3 and CN's II-XII intact bilaterally Sensorium / Orientation: alert Motor Exam: strength 5/5 throughout Psych mental status grossly normal Skin no rashes or lesions noted and no wounds General Skin Exam: Negative for jaundice or pallor MDM MDM MDM Narrative Medical decision making narrative: 41-year-old male presenting with chief complaint of nausea and vomiting. He states has not been able to hold anything down since Thursday. His heart rate is 99, respiratory rate 18, pulse ox 97% on room air. Temperature 98.0. Patient states he does not have anything for nausea at home. He tried to follow-up with his primary care doctor who referred him back to the emergency room because he has not been able to eat or drink. He does have history of DVT but has been anticoagulated on Eliquis since July has not missed any doses. Patient does not report a cough. He had a normal chest x-ray on Thursday. His lab work was reviewed and he had 2 negative troponins as well as fairly normal blood work. He did have elevation in his LFTs and his alcohol was elevated the other day. He is an alcoholic. He does not report any abdominal pain today. I do not believe the patient needs any blood work today. He was treated with Zofran and was able to drink some water. He states he still had some nausea and was given Phenergan. After this he was able to drink a little bit of water and eat some crackers. I will discharge the patient home with Zofran and Phenergan but I will also place him on omeprazole and Carafate. He is given referral to Dr. Dewitt. Likely a lot of his stomach problems are stemming from his alcoholism. Patient discharged in stable condition. Impression: 1. Nausea/vomiting 2. Gastritis Lab Data Attestation: I reviewed the patient's lab results. Discharge Plan Triage Chief Complaint: General Illness ED Provider: Alexandro Lazo Dx/Rx/DC Orders Instructions: ED Vomiting (Adult) Prescriptions: New promethazine 25 mg tablet 25 mg PO TID PRN (Reason: nausea and vomiting) Qty: 20 0RF ondansetron 4 mg tablet,disintegrating 4 mg PO Q8H PRN (Reason: nausea and vomiting) Qty: 20 0RF omeprazole 40 mg capsule,delayed release(DR/EC) 40 mg PO DAILY Qty: 30 0RF sucralfate [Carafate] 100 mg/mL suspension 10 ml PO BID PRN (Reason: epigastric pain) Qty: 400 0RF No Action buprenorphine-naloxone 8-2 mg tablet, sublingual 4 tab SUBLINGUAL BID Label Comments: DISSOLVE ONE TABLET UNDER THE TONGUE DAILY Eliquis 5 mg tablet 5 mg PO BID Label Comments: TAKE 2 TABLETS BY MOUTH TWICE DAILY FOR THE FIRST WEEK, THEN TAKE 1 TABLET BY MOUTH TWICE DAILY AFTER Primary Care Provider: Luis Riley Referrals: Alex Dewitt DO [Med Staff - Active Staff] - 3-5 Days Luis Riley MD [Primary Care Provider] - Disposition Disposition: Home, Self Care
[2021-11-15] MEDS: Famotidine 20 MG Tablet PO (16:23)
[2021-11-15] MEDS: Ondansetron ODT 4 MG Tablet PO (16:23)
[2021-11-15] MEDS: proMETHazine 25 MG/ML Syringe 12.5 MG IM (17:21)
[2021-11-15 19:06] VITALS: BP 126/77; PULSE 95; RESP 18; O2SAT 96
[2021-11-15 19:48] VITALS: BP 118/79; PULSE 112; RESP 18; O2SAT 94
== END 2021-11-15 20:09 | disposition home or self-care (01) ==
PROVIDERS: Emergency Provider Student in an Organized Health Care Education/Training Program; PCP Family Medicine; Visit Provider Student in an Organized Health Care Education/Training Program
DX: K29.70 Gastritis, unspecified, without bleeding (principal); F10.20 Alcohol dependence, uncomplicated; F32.A Depression, unspecified; F41.9 Anxiety disorder, unspecified; F17.210 Nicotine dependence, cigarettes, uncomplicated; Z79.01 Long term (current) use of anticoagulants; Z79.899 Other long term (current) drug therapy; Z86.718 Personal history of other venous thrombosis and embolism
CPT/HCPCS: 96372; 99283

== ENCOUNTER 2021-11-19 19:27 | Inpatient (IN) | payer BC, MEDICAID, SELFPAY ==
[2021-11-19 19:28] VITALS: BP 102/75; PULSE 133; RESP 15; TEMP 36.6; O2SAT 97; BMI 20.4
--- NOTE | 2021-11-19 20:41 | EX.ED.SAOD ---
HPI History of Present Illness Chief Complaint: Substance Abuse Informant: patient Onset/Context/Timing Onset: Today Context: Gradual Onset Timing: Continuous Worsened by: Nothing Relieved by: Nothing Associated Symptoms Associated Symptoms: Positive for vomiting*, diarrhea*, tremor and palpatations; Negative for fever*, rash*, seizure, change in mental status, suicidal ideation or homicidal ideation Narrative Narrative: Patient presents requesting detox from alcohol. Patient states he drinks a lot of alcohol. Patient is unable to quantify exactly how much. Patient states he drinks hard liquor. Patient states his last drink was just prior to arrival. Patient states he has been to detox here in the past. Patient states his last detox was in April. Patient admits to some vomiting and diarrhea. Patient also admits to some tremors and palpitations. Patient denies any seizures. Patient denies any fevers but admits to some subjective chills. Patient also admits to diarrhea. [facility] Medical History Alcohol abuse Alcohol abuse with physiological dependence Alcohol dependence Anxiety Ascites Back pain Depression Kidney stones Migraine Smoker SOB (shortness of breath) Home Medications buprenorphine 8 mg-naloxone 2 mg sublingual tablet 4 tab sublingual BID 11/11/21 [History Last Taken Unknown] apixaban 5 mg tablet (Eliquis) 5 mg PO BID 11/15/21 [History Last Taken Unknown] omeprazole 40 mg capsule,delayed release 40 mg PO DAILY #30 caps 11/15/21 [Rx Last Taken Unknown] ondansetron 4 mg disintegrating tablet 4 mg PO Q8H PRN nausea and vomiting #20 tabs 11/15/21 [Rx Last Taken Unknown] promethazine 25 mg tablet 25 mg PO TID PRN nausea and vomiting #20 tabs 11/15/21 [Rx Last Taken Unknown] sucralfate 100 mg/mL oral suspension (Carafate) 10 ml PO BID PRN epigastric pain #400 mL 11/15/21 [Rx Last Taken Unknown] Allergy/AdvReac Type Severity Reaction Status Date / Time No Known Allergies Allergy Verified 11/19/21 19:32 Family History Other Breast cancer Thyroid disorder Surgical History History of cholecystectomy History of foot surgery History of hand surgery History of hernia repair History of surgery on left wrist Necks Fusion Social History household members: significant other Smoking Status: Current every day smoker tobacco type: cigarettes alcohol intake: current alcohol intake frequency: a few times a month substance use type: does not use seatbelt use: always do you feel safe at home: Yes ROS ROS ED Constitutional Constitutional ED: Reports chills and subjective; Denies fever(s) Eyes Eyes: Denies blurry vision or change in vision ENT ENT ED: Denies rhinorrhea or sore throat Cardiovascular Cardiovascular: Reports palpitations; Denies chest pain Respiratory/Chest Respiratory/Chest: Denies cough or dyspnea Gastrointestinal Gastrointestinal: Reports nausea and vomiting Genitourinary Genitourinary ED: Denies dysuria or hematuria Musculoskeletal Musculoskeletal: Denies back pain or neck pain Integumentary Denies abscess or rash Neurologic Neurologic: Denies headache(s) or weakness Allergic/Immunologic Allergic/Immunologic ED: Denies mouth swelling or urticaria EXAM Physical Exam Const Vital Signs: 11/19/21 19:28 Temperature 97.9 F Temperature Source Temporal Pulse Rate 133 H Respiratory Rate 15 Blood Pressure 102/75 Blood Pressure Mean 84 Pulse Ox 97 Oxygen Delivery Method Room Air Positive well nourished and well developed General Appearance ED: well developed HEENT Reports moist mucous membranes Neck supple and no JVD Resp normal respiratory effort and clear to auscultation bilaterally Cardio regular rate, regular rhythm and no murmurs GI normal to inspection, nondistended, normoactive bowel sounds and non-tender Palpation: soft Extremity normal to inspection General Extremety ED: Negative for edema or tenderness General Extremity: Negative for edema Neuro oriented x3, CN's II-XII intact bilaterally and no sensory deficits noted Sensorium / Orientation: alert Motor Exam: strength 5/5 throughout Psych mental status grossly normal Skin no rashes or lesions noted MDM MDM MDM Narrative Medical decision making narrative: Basic labs were obtained. Patient was given a dose of phenobarbital here in the emergency department. Case was discussed with the hospitalist. Discharge Plan Triage Chief Complaint: Substance Abuse ED Provider: Rito Castillo Dx/Rx/DC Orders Clinical Impression: Alcohol dependence, Desire for detoxification Prescriptions: No Action buprenorphine-naloxone 8-2 mg tablet, sublingual 4 tab SUBLINGUAL BID Label Comments: DISSOLVE ONE TABLET UNDER THE TONGUE DAILY Eliquis 5 mg tablet 5 mg PO BID Label Comments: TAKE 2 TABLETS BY MOUTH TWICE DAILY FOR THE FIRST WEEK, THEN TAKE 1 TABLET BY MOUTH TWICE DAILY AFTER promethazine 25 mg tablet 25 mg PO TID PRN (Reason: nausea and vomiting) Qty: 20 0RF ondansetron 4 mg tablet,disintegrating 4 mg PO Q8H PRN (Reason: nausea and vomiting) Qty: 20 0RF omeprazole 40 mg capsule,delayed release(DR/EC) 40 mg PO DAILY Qty: 30 0RF sucralfate [Carafate] 100 mg/mL suspension 10 ml PO BID PRN (Reason: epigastric pain) Qty: 400 0RF Primary Care Provider: Luis Riley Referrals: Luis Riley MD [Primary Care Provider] - Disposition Disposition: Acute Care Hospital [facility]
[2021-11-19] MEDS: Phenobarbital 32.4 MG Tablet 97.2 MG PO (20:56)
[2021-11-19] MEDS: 0.9% Normal Saline 1,000 ML 1000 ML IV (20:56)
[2021-11-19 20:59] LABS: Absolute Lymphocyte Count 2.19 X10^3/uL (0.83-4.51); Absolute Neutrophil Count 6.9 X10^3/uL (2.0-7.7); Basophil# 0.03 X10^3/uL; Basophil% 0.3 % (0-1); Eosinophil# 0.04 X10^3/uL; Eosinophils% 0.4 % (0-5); Hematocrit 43.6 % (40-54); Hemoglobin 15.3 g/dL (13.0-16.5); Lymphocyte # 2.19 X10^3/ul (0.83-4.51); Lymphocyte % 21.3 % (19-41); Mean Corp Hgb Conc 35.1 g/dL (32-36); Mean Corpuscular Hgb 32.8 pg (27.0-32.0); Mean Corpuscular Volume 93.6 fL (80-94); Mean Platelet Vol. 10.5 fl (6.2-12.0); Monocyte# 1.12 X10^3/uL; Monocyte% 10.9 % (0-10); NRBC Flagged by Analyzer 0.2 % (0-5); Neutrophil # 6.86 X10^3/uL (2.7-7.7); Neutrophil % 66.8 % (47-70); POSITIVE MORPHOLOGY YES; Platelet Count 122 K/mm3 (150-450); RBC Distribution Width SD 72.5 fl (35.1-43.9); Red Blood Count 4.66 M/mm3 (4.6-6.2); White Blood Count 10.3 K/mm3 (4.4-11.0)
[2021-11-19 21:07] LABS: International Normalized Ratio 1.1; Partial Thromboplast Time 31.1 Seconds (24.1-36.2); Prothrombin Time (Protime)PT. 13.6 SECONDS (11.7-14.9)
--- NOTE | 2021-11-19 21:13 | HP.PCM_ITS ---
Documented by User: ANAMARIA Garcia 11/19/21 21:25 HPI - General General Date of Admission: 11/19/21 Date of Service: 11/19/21 Chief Complaint: ETOH detox HPI Narrative VANESSA DAILEY, is a 41 M who presents with desire to detox from alcohol. Patient states that he is currently going through a divorce and this has contributed to his relapse. Patient states that his last drink was at 6:30 PM today prior to arrival to ER. Patient had recent diagnosis of DVT and PE, currently on Eliquis. Patient states that he also has GERD for which he takes omeprazole and as needed Zofran sucralfate and promethazine. [facility] Medical History Alcohol abuse Alcohol abuse with physiological dependence Alcohol dependence Anxiety Ascites Back pain Depression Kidney stones Migraine Smoker SOB (shortness of breath) Home Medications buprenorphine 8 mg-naloxone 2 mg sublingual tablet 4 tab sublingual BID 11/11/21 [History Last Taken Unknown] apixaban 5 mg tablet (Eliquis) 5 mg PO BID 11/15/21 [History Last Taken Unknown] omeprazole 40 mg capsule,delayed release 40 mg PO DAILY #30 caps 11/15/21 [Rx Last Taken Unknown] ondansetron 4 mg disintegrating tablet 4 mg PO Q8H PRN nausea and vomiting #20 tabs 11/15/21 [Rx Last Taken Unknown] promethazine 25 mg tablet 25 mg PO TID PRN nausea and vomiting #20 tabs 11/15/21 [Rx Last Taken Unknown] sucralfate 100 mg/mL oral suspension (Carafate) 10 ml PO BID PRN epigastric pain #400 mL 11/15/21 [Rx Last Taken Unknown] Allergy/AdvReac Type Severity Reaction Status Date / Time No Known Allergies Allergy Verified 11/19/21 19:32 Family History Other Breast cancer Thyroid disorder Surgical History History of cholecystectomy History of foot surgery History of hand surgery History of hernia repair History of surgery on left wrist Necks Fusion Social History household members: significant other Smoking Status: Current every day smoker tobacco type: cigarettes alcohol intake: current alcohol intake frequency: a few times a month substance use type: does not use seatbelt use: always do you feel safe at home: Yes ROS Constitutional Constitutional: Reports chills; Denies anorexia, fatigue, fever(s), night sweats or weakness Cardiovascular Cardiovascular: Denies chest pain, edema, palpitations or syncope Respiratory/Chest Respiratory/Chest: Denies cough, shortness of breath at rest, shortness of breath with exertion or wheezing Gastrointestinal Gastrointestinal: Reports nausea and vomiting; Denies abdominal pain, co nstipation or diarrhea Genitourinary Genitourinary: Denies dysuria Musculoskeletal Musculoskeletal: Denies back pain, extremity pain or joint pain Integumentary Integumentary: Denies dry skin Neurologic Neurologic: Reports tremor(s); Denies abnormal gait, abnormal speech, confusion or dizziness Psychiatric Psychiatric: Reports anxiety and depression Endocrine Endocrinology: Denies change in body appearance Vital Signs Vital Signs Vital Signs: 11/19/21 19:28 Temperature 97.9 F Temperature Source Temporal Pulse Rate 133 H Respiratory Rate 15 Blood Pressure 102/75 Blood Pressure Mean 84 Pulse Ox 97 Oxygen Delivery Method Room Air Weight Weight: 155 lb Body Mass Index (BMI) 20.4 Physical Exam Const alert, oriented x3 and no apparent distress General Appearance: cooperative HEENT normocephalic and head/scalp atraumatic Eyes conjunctivae normal and no scleral icterus Neck no lymphadenopathy and supple General: trachea midline Resp normal respiratory effort, normal air movement and clear to auscultation bilaterally Cardio regular rate, regular rhythm, S1 normal heart sound, S2 normal heart sound and peripheral pulses 2+ throughout Rate: tachycardic GI normal to inspection, nondistended, normoactive bowel sounds, soft to palpation and non-tender Extremity normal capillary refill and no clubbing, cyanosis or edema Skin General Skin Exam: no breakdown Rashes: no rashes Neuro no focal motor deficits and no sensory deficits noted Speech: speech normal Psych cooperative Appearance: appropriate Mood & Affect: depressed Results Lab / Micro Data Result Diagrams: 11/19/21 20:01 11/19/21 20:01 Labs: Laboratory Results - last 24 hr 11/19/21 20:01: PT 13.6, INR 1.1, APTT 31.1 11/19/21 20:01: Ethyl Alcohol 175.0 11/19/21 20:01: Ur Drug Screen Comment Assessment & Plan Assessment/Plan (1) Acute DVT of right tibial vein: (2) Alcohol dependence: (3) Desire for detoxification: PLAN: Plan 1. [facility] on Ativan taper -supportive medications per protocol -Case management consulted for coordination with 180 2. Hypokalemia -Potassium chloride 40 mEq p.o. given in ER -CMP daily 3. GERD -Continue omeprazole -Continue as needed Zofran, promethazine, sucralfate 4. PE and DVT -Patient recently diagnosed with PE and DVT of the right tibial vein -Continue Eliquis 5. Alcoholic liver disease -Patient follows with Dr. Dewitt outpatient -Total bilirubin 3.5, increased from 11/11/2021, AST ALT and alkaline phosphatase improved from 11/11/2021 6. Tobacco abuse -Nicotine patch ordered DVT prophylaxis-not indicated, currently anticoagulated with Eliquis This patient was seen by Marisela Wilson NP-C under the supervision of Dr. Oneal. 28 minutes spent in clinical coordination of patient's plan of care. Documented by User: Dr. Doyle Oneal MD 11/19/21 21:55 HPI - General General Date of Admission: 11/19/21 [facility] Medical History Alcohol abuse Alcohol abuse with physiological dependence Alcohol dependence Anxiety Ascites Back pain Depression Kidney stones Migraine Smoker SOB (shortness of breath) Home Medications buprenorphine 8 mg-naloxone 2 mg sublingual tablet 4 tab sublingual BID 11/11/21 [History Last Taken Unknown] apixaban 5 mg tablet (Eliquis) 5 mg PO BID 11/15/21 [History Last Taken Unknown] omeprazole 40 mg capsule,delayed release 40 mg PO DAILY #30 caps 11/15/21 [Rx Last Taken Unknown] ondansetron 4 mg disintegrating tablet 4 mg PO Q8H PRN nausea and vomiting #20 tabs 11/15/21 [Rx Last Taken Unknown] promethazine 25 mg tablet 25 mg PO TID PRN nausea and vomiting #20 tabs 11/15/21 [Rx Last Taken Unknown] sucralfate 100 mg/mL oral suspension (Carafate) 10 ml PO BID PRN epigastric pain #400 mL 11/15/21 [Rx Last Taken Unknown] Allergy/AdvReac Type Severity Reaction Status Date / Time No Known Allergies Allergy Verified 11/19/21 19:32 Family History Other Breast cancer Thyroid disorder Surgical History History of cholecystectomy History of foot surgery History of hand surgery History of hernia repair History of surgery on left wrist Necks Fusion Social History household members: significant other Smoking Status: Current every day smoker tobacco type: cigarettes alcohol intake: current alcohol intake frequency: a few times a month substance use type: does not use seatbelt use: always do you feel safe at home: Yes Results Lab / Micro Data Result Diagrams: 11/19/21 20:01 11/19/21 20:01 Assessment & Plan Assessment/Plan (1) Acute DVT of right tibial vein: (2) Alcohol dependence: (3) Desire for detoxification: Charges/Coding Addendum Addendum: Patient is a 41-year-old male with a significant history of alcoholism; opioid abuse on Suboxone; protein C deficiency; DVT and PE on Eliquis who presents emergency department for help with alcohol detoxification. Reportedly patient drinks rum and fireball every day. He drinks about 10-15 shots at least per day. He reported that he quit drinking but because he is going through divorce he resumed drinking. Last time he drank was about an hour prior to presentation. He denies any withdrawal symptoms at this time. Physical exam: General: Well-nourished, well-developed. Head: Normocephalic, atraumatic, no tenderness Eyes: Vision is grossly intact. EOMI ENT, no trauma, thrush, no rhinorrhea Neck: Nontender, full range of motion. CVS: Regular rate and rhythm. S1-S2 present. No murmur, gallop or rub. Respiratory : clear to auscultation bilaterally, chest wall nontender, no wheezing Abdomen: Soft, nontender, nondistended, normal bowel sounds, no masses : Deferred Back: Nontender, no CVA tenderness, no midline spinal tenderness, deformities, step-offs Extremities: Nontender full range of motion, no trauma Skin: Scattered ulcers on the skin. Normal color. Neuro: Alert, oriented, cranial nerves II through XII grossly intact. Psychiatry: Normal mood. Normal affect. Not depressed. Not anxious. Alcohol dependence and desire for detoxification/alcoholic liver disease Review of labs shows elevated AST, elevated ALT, elevated total bilirubin. Patient be started on ativan and other adjunctive medications: Gabapentin as needed; dicyclomine as needed; Vistaril as needed; Imodium as needed; trazodone as needed; Zofran as needed; scheduled thiamine; and schedule folic acid. Not placed on phenobarbital secondary to interaction with Eliquis. Monitor CIWA score Tobacco abuse Counseled Nicotine patch prescribed. Acute on chronic hypokalemia Replaced at the ED. Placed on daily supplements. Trend CMP. Check magnesium. Thrush Nystatin swish and swallow ordered. Hypokalemia Potassium 2.5 on presentation. Received 40 mEq p.o. at the emergency department. Placed on daily potassium. Check magnesium. Trend CMP. History of opioid abuse Last time he used opiate was about 8 years ago. Reportedly he is on his last prescription for Suboxone. Patient is requesting no further Suboxone at this time. Will hold Suboxone. Symptomatic treatment of opioid abuse as an alcohol withdrawal. DVT prophylaxis Low risk Encourage to ambulate Thirty (30) minutes was spent seeing patient, and reviewing charts. Visit Charges Inpatient E&M: 07226 Init Hosp L3
[2021-11-19 21:18] LABS: ALB/GLOB Ratio 0.7 RATIO (0.9-2.4); AST(SGOT) 147 U/L (15-37); Alanine Aminotransfer ALT/SGPT 70 U/L (16-61); Albumin, Serum 3.3 g/dL (3.2-5.0); Alkaline Phosphatase 201 U/L (45-117); Amphetamine Urine VISTA NEGATIVE (<1000 ng/mL); Anion Gap 14 (5-15); BUN 8 mg/dL (7-18); BUN/Creat Ratio 9.9 RATIO (10-20); Barbiturate Urine VISTA NEGATIVE (< 200 ng/mL); Benzodiazepine Urine VISTA NEGATIVE (< 200 ng/mL); Calcium,Total 8.9 mg/dL (8.5-10.1); Chloride 89 mmol/L (98-107); Cocaine Urine VISTA NEGATIVE (< 300 ng/mL); EST Glomerular Filtration Rate 112 mL/min (>60); Ecstacy Urine VISTA NEGATIVE (< 500 ng/mL); Est Glom Filt Rate - Afr Amer 136 mL/min (>60); Estimated Creatinine Clearance 120.84 ml/min; Globulin 4.9 g/dL (2.2-4.2); Glucose 101 mg/dL (74-106); Lipase 93 U/L (73-393); Methadone Urine VISTA NEGATIVE (< 300 ng/mL); PCP Urine VISTA NEGATIVE (< 25 ng/mL); Potassium 2.5 mmol/L (3.5-5.1); Protein, Total 8.2 g/dL (6.4-8.2); Sodium Level 134 mmol/L (136-145); THC Urine VISTA NEGATIVE (< 50 ng/mL); Vista UDS pH Range 6
[2021-11-19 21:20] LABS: Differential Indicated SCAN CRITERIA MET
[2021-11-19 21:21] VITALS: BP 112/79; PULSE 108; RESP 17; TEMP 36.2; O2SAT 100
[2021-11-19] MEDS: Potassium Chloride Oral Tablet 20 MEQ 40 MEQ PO (21:26)
[2021-11-19 21:36] LABS: Anisocytosis 1+; Macrocytosis RARE; Platelet Estimate SLT DEC (ADEQ); Red Cell Morphology N CHROM NORMAL (NORM C&C)
[2021-11-19 21:47] VITALS: BP 115/76; PULSE 107; RESP 16; TEMP 36.7; O2SAT 98
[2021-11-19 21:52] VITALS: BMI 20.4
[2021-11-19] MEDS: traZODone 100 MG Tablet PO (22:29)
[2021-11-19] MEDS: 0.9% Saline Lock 10 ML Syringe IV (22:29)
[2021-11-19] MEDS: LORazepam 1 MG Tablet PO (22:30)
[2021-11-19] MEDS: APIXABAN 5 MG TABLET PO (22:30)
[2021-11-19] MEDS: NYSTATIN 500,000 UNIT/5 ML UDC 500000 UNIT PO (22:30)
[2021-11-19 22:50] LABS: Magnesium 1.5 mg/dL (1.6-2.6)
[2021-11-20] VITALS (7 sets, daily range): BP systolic 96–114; BP diastolic 63–79; PULSE 102–125; RESP 16–18; TEMP 36.4–37; O2SAT 97–100
[2021-11-20 00:30] LABS: Potassium 3.2 mmol/L (3.5-5.1)
[2021-11-20] MEDS: LORazepam 1 MG Tablet PO ×6 (00:49→22:20)
[2021-11-20 06:36] LABS: ALB/GLOB Ratio 0.7 RATIO (0.9-2.4); AST(SGOT) 126 U/L (15-37); Alanine Aminotransfer ALT/SGPT 56 U/L (16-61); Albumin, Serum 2.7 g/dL (3.2-5.0); Alkaline Phosphatase 161 U/L (45-117); Anion Gap 9 (5-15); BUN 10 mg/dL (7-18); BUN/Creat Ratio 16.5 RATIO (10-20); Calcium,Total 8.3 mg/dL (8.5-10.1); Chloride 93 mmol/L (98-107); Creatinine, Serum 0.61 mg/dL (0.70-1.30); EST Glomerular Filtration Rate 155 mL/min (>60); Est Glom Filt Rate - Afr Amer 188 mL/min (>60); Estimated Creatinine Clearance 158.48 ml/min; Globulin 3.9 g/dL (2.2-4.2); Glucose 93 mg/dL (74-106); Potassium 3.4 mmol/L (3.5-5.1); Protein, Total 6.6 g/dL (6.4-8.2); Sodium Level 132 mmol/L (136-145)
[2021-11-20] MEDS: Potassium Chloride Oral Tablet 20 MEQ 40 MEQ PO ×2 (08:10→08:12)
[2021-11-20] MEDS: Magnesium Sulfate 4gm/100mL 4 GM/100 ML IV.SOLN. IV (08:10)
[2021-11-20] MEDS: 0.9% Saline Lock 10 ML Syringe IV ×2 (08:10→22:21)
[2021-11-20] MEDS: Folic Acid 1 MG Tablet PO (08:11)
[2021-11-20] MEDS: Pantoprazole Sodium 40 MG Tablet PO (08:11)
[2021-11-20] MEDS: APIXABAN 5 MG TABLET PO ×2 (08:11→22:20)
[2021-11-20] MEDS: Thiamine Hydrochloride 100 MG Tablet PO (08:11)
[2021-11-20] MEDS: NYSTATIN 500,000 UNIT/5 ML UDC 500000 UNIT PO ×4 (11:09→22:21)
--- NOTE | 2021-11-20 11:09 | ADDICTION ---
Addiction Therapist attempted to meet with PT. PT did not rouse to 3x verbal queuing. AT will attempt to meet with PT at next visit on 11/21.?
--- NOTE | 2021-11-20 12:43 | PCM.PN.HOSP ---
Subjective Subjective Patient states he feels some anxiety and tremor. Denies any nausea vomiting or diarrhea. Awaiting 180 input. Denies any current needs. Objective Data Objective Data Vital Signs: Vital Signs Temp Pulse Resp BP Pulse Ox O2 Del Method 97.6 F L 102 H 18 114/76 98 Room Air 11/20/21 08:15 11/20/21 08:15 11/20/21 08:15 11/20/21 08:15 11/20/21 09:14 11/20/21 09:14 Oxygen Delivery Method Room Air Weight: 70.307 kg Body Mass Index (BMI) 20.4 Intake & Output: Intake and Output for Last 24 Hours 11/18/21 11/19/21 11/20/21 23:59 23:59 23:59 Intake Total 1400 / 1400 300 / 300 Balance 1400 / 1400 300 / 300 Lab / Micro Data Result Diagrams: 11/19/21 20:01 11/20/21 05:45 Labs: Laboratory Results - last 24 hr 11/19/21 20:01: WBC 10.3, RBC 4.66, Hgb 15.3, Hct 43.6, MCV 93.6, MCH 32.8 H, MCHC 35.1, RDW Std Deviation 72.5 H, RDW Coeff of Margaret 22.0 H, Plt Count 122 L, MPV 10.5, Immature Gran % (Auto) 0.300, Neut % (Auto) 66.8, Lymph % (Auto) 21.3, Morrison % (Auto) 10.9 H, Eos % (Auto) 0.4, Baso % (Auto) 0.3, Absolute Neuts (auto) 6.9, Absolute Lymphs (auto) 2.19, Nucleated RBC % 0.2, Platelet Estimate SLT DEC, RBC Morphology N CHROM, Anisocytosis 1+, Macrocytosis RARE 11/19/21 20:01: PT 13.6, INR 1.1, APTT 31.1 11/19/21 20:01: Sodium 134 L, Potassium 2.5 L*, Chloride 89 L, Carbon Dioxide 31.0, Anion Gap 14, BUN 8, Creatinine 0.80, Estim Creat Clear Calc 120.84, Est GFR (MDRD) Af Amer 136, Est GFR (MDRD) Non-Af 112, BUN/Creatinine Ratio 9.9 L, Glucose 101, Calcium 8.9, Total Bilirubin 3.50 H, AST 147 H, ALT 70 H, Alkaline Phosphatase 201 H, Total Protein 8.2, Albumin 3.3, Globulin 4.9 H, Albumin/Globulin Ratio 0.7 L, Lipase 93 11/19/21 20:01: Ethyl Alcohol 175.0 11/19/21 20:01: Urine Opiates Screen NEGATIVE, Urine Methadone Screen NEGATIVE, Ur Barbiturates Screen NEGATIVE, Ur Phencyclidine Scrn NEGATIVE, Ur Amphetamines Screen NEGATIVE, MDMA (Ecstasy) Screen NEGATIVE, U Benzodiazepines Scrn NEGATIVE, Urine Cocaine Screen NEGATIVE, U Cannabinoids Screen NEGATIVE, Ur Drug Screen Comment 11/19/21 20:01: Magnesium 1.5 L 11/19/21 23:45: Potassium 3.2 L 11/20/21 05:45: Sodium 132 L, Potassium 3.4 L, Chloride 93 L, Carbon Dioxide 30.0, Anion Gap 9, BUN 10, Creatinine 0.61 L, Estim Creat Clear Calc 158.48, Est GFR (MDRD) Af Amer 188, Est GFR (MDRD) Non-Af 155, BUN/Creatinine Ratio 16.5, Glucose 93, Calcium 8.3 L, Total Bilirubin 4.10 H, AST 126 H, ALT 56, Alkaline Phosphatase 161 H, Total Protein 6.6, Albumin 2.7 L, Globulin 3.9, Albumin/Globulin Ratio 0.7 L Physical Exam Const alert, oriented x3, no apparent distress and well nourished Constitutional Narrative: Middle-aged white male, appears older than stated age, resting comfortably in bed, nontoxic, appears comfortable HEENT head/scalp atraumatic and moist oral mucous membranes HEENT Narrative: Condition is fair, Mallampati is 2, no thrush Head and Scalp: normocephalic Resp normal respiratory effort, no retractions, no use of accessory muscles and clear to auscultation bilaterally Resp Narrative: Diffusely diminished but clear Auscultation: Negative for crackles, rales, rhonchi or wheezes Cardio regular rate, regular rhythm, S1 normal heart sound, S2 normal heart sound, no murmurs, no rub, no gallops and no clicks GI normal to inspection, nondistended, normoactive bowel sounds, soft to palpation and non-tender Extremity no clubbing, cyanosis or edema Neuro oriented x3, moves all extremities and no focal motor deficits Speech: speech normal Psych Psych Narrative: Affect is flat Assessment & Plan Assessment/Plan (1) Alcohol dependence: (2) Desire for detoxification: (3) Hypokalemia: (4) Hypomagnesemia: (5) Alcoholic hepatitis: PLAN: Plan Acute alcohol withdrawal/alcohol dependence -Continue phenobarbital taper -Continue thiamine and folate -Continue supportive medications -180 consult pending for discharge planning Alcoholic hepatitis -Bilirubin up some but transaminases are improving. We will repeat tomorrow to reevaluate -Alk phos is only 161 -Doubt any acute gallbladder issues as patient has no abdominal pain either -Follows with Dr. Dewitt as an outpatient Hypomagnesemia -4 g magnesium bolus -Repeat lab in a.m. Hypokalemia -Improved since admission however still low at 3.4 -40 mill equivalents p.o. potassium given -Repeat lab in a.m. History of DVT/PE with protein C deficiency -Continue home anticoagulation with apixaban History of opiate abuse -Continue home Suboxone GERD -Continue omeprazole -Continue Carafate Tobacco abuse -Continue nicotine patch -Encourage cessation DVT prophylaxis -Continue home Eliquis CODE STATUS Full code Charges/Coding Visit Charges Inpatient E&M: 34847 Subs Hosp L2
[2021-11-20] MEDS: traZODone 100 MG Tablet PO (22:35)
[2021-11-21] VITALS (9 sets, daily range): BP systolic 100–107; BP diastolic 71–76; PULSE 102–108; RESP 17–18; TEMP 36.7–36.9; O2SAT 96–98
[2021-11-21] MEDS: LORazepam 1 MG Tablet PO ×6 (02:20→22:19)
[2021-11-21 07:14] LABS: ALB/GLOB Ratio 0.6 RATIO (0.9-2.4); AST(SGOT) 150 U/L (15-37); Alanine Aminotransfer ALT/SGPT 57 U/L (16-61); Albumin, Serum 2.5 g/dL (3.2-5.0); Alkaline Phosphatase 168 U/L (45-117); Anion Gap 8 (5-15); BUN 11 mg/dL (7-18); BUN/Creat Ratio 19.9 RATIO (10-20); Calcium,Total 8.5 mg/dL (8.5-10.1); Chloride 97 mmol/L (98-107); Creatinine, Serum 0.55 mg/dL (0.70-1.30); EST Glomerular Filtration Rate 173 mL/min (>60); Est Glom Filt Rate - Afr Amer 209 mL/min (>60); Estimated Creatinine Clearance 175.77 ml/min; Glucose 85 mg/dL (74-106); Magnesium 1.7 mg/dL (1.6-2.6); Potassium 3.8 mmol/L (3.5-5.1); Protein, Total 6.5 g/dL (6.4-8.2); Sodium Level 134 mmol/L (136-145)
[2021-11-21 07:41] LABS: Phosphorus 2.9 mg/dL (2.5-4.9)
[2021-11-21] MEDS: Thiamine Hydrochloride 100 MG Tablet PO (08:03)
[2021-11-21] MEDS: Folic Acid 1 MG Tablet PO (08:03)
[2021-11-21] MEDS: Potassium Chloride Oral Tablet 20 MEQ 40 MEQ PO (08:03)
[2021-11-21] MEDS: Dicyclomine 10 MG Capsule 20 MG PO (08:40)
[2021-11-21] MEDS: Pantoprazole Sodium 40 MG Tablet PO (09:47)
[2021-11-21] MEDS: APIXABAN 5 MG TABLET PO ×2 (09:47→21:09)
[2021-11-21] MEDS: NYSTATIN 500,000 UNIT/5 ML UDC 500000 UNIT PO ×4 (09:47→21:10)
--- NOTE | 2021-11-21 13:15 | PCM.PN.HOSP ---
Subjective Subjective No issues overnight. Patient still very sleepy however wakes up and will answer questions appropriately. Denies any specific complaints other than fatigue at this time. Per discussion with addiction medicine his plan is to be discharged with no specific plan and states that he can do it on his own. Objective Data Objective Data Vital Signs: Vital Signs Temp Pulse Resp BP Pulse Ox O2 Del Method 98.1 F 103 H 18 104/74 98 Room Air 11/21/21 09:15 11/21/21 09:15 11/21/21 09:15 11/21/21 09:15 11/21/21 09:15 11/21/21 09:15 Oxygen Delivery Method Room Air Weight: 70.307 kg Body Mass Index (BMI) 20.4 Intake & Output: Intake and Output for Last 24 Hours 11/19/21 11/20/21 11/21/21 23:59 23:59 23:59 Intake Total 1400 / 1400 1000 / 1000 300 / 300 Balance 1400 / 1400 1000 / 1000 300 / 300 Lab / Micro Data Result Diagrams: 11/19/21 20:01 11/21/21 04:40 Labs: Laboratory Results - last 24 hr 11/21/21 04:40: Sodium 134 L, Potassium 3.8, Chloride 97 L, Carbon Dioxide 29.0, Anion Gap 8, BUN 11, Creatinine 0.55 L, Estim Creat Clear Calc 175.77, Est GFR (MDRD) Af Amer 209, Est GFR (MDRD) Non-Af 173, BUN/Creatinine Ratio 19.9, Glucose 85, Calcium 8.5, Magnesium 1.7, Total Bilirubin 1.80 H, AST 150 H, ALT 57, Alkaline Phosphatase 168 H, Total Protein 6.5, Albumin 2.5 L, Globulin 4.0, Albumin/Globulin Ratio 0.6 L 11/21/21 04:40: Phosphorus 2.9 Physical Exam Const alert, oriented x3 and no apparent distress Constitutional Narrative: Middle-aged white male, appears older than stated age, resting comfortably in bed, nontoxic, appears comfortable, fairly somnolent but does awaken and answer questions appropriately General Appearance: cooperative HEENT normocephalic, head/scalp atraumatic and moist oral mucous membranes Resp normal respiratory effort, normal air movement, no retractions, no use of accessory muscles and clear to auscultation bilaterally Resp Narrative: Diffusely diminished but clear Auscultation: Negative for crackles, rales, rhonchi or wheezes Cardio regular rhythm, S1 normal heart sound, S2 normal heart sound, no murmurs, no rub, no gallops, no clicks and peripheral pulses 2+ throughout Cardio Narrative: Mild tachycardia GI normal to inspection, nondistended, normoactive bowel sounds, soft to palpation and non-tender Extremity normal capillary refill and no clubbing, cyanosis or edema Extremity Narrative: Multiple tattoos Neuro oriented x3, moves all extremities and no focal motor deficits Speech: speech normal Assessment & Plan Assessment/Plan (1) Alcohol dependence: (2) Desire for detoxification: (3) Hypokalemia: (4) Hypomagnesemia: (5) Alcoholic hepatitis: PLAN: Plan Acute alcohol withdrawal/alcohol dependence -Continue phenobarbital taper -Continue thiamine and folate -Continue supportive medications -180 has evaluated the patient and the patient indicated that he does not want any help at home and will be able to stay clean on his own Alcoholic hepatitis -Bilirubin down to 1.8 from 4.1 -AST and ALT are trending down and almost normalized -Follows with Dr. Dewitt as an outpatient Hypomagnesemia - resolved -A.m. magnesium 1.7 Hypokalemia -Resolved -a.m. potassium 3.8 History of DVT/PE with protein C deficiency -Continue home anticoagulation with apixaban History of opiate abuse -Continue home Suboxone GERD -Continue omeprazole -Continue Carafate Tobacco abuse -Continue nicotine patch -Encourage cessation DVT prophylaxis -Continue home Eliquis CODE STATUS Full code Charges/Coding Visit Charges Inpatient E&M: 73109 Subs Hosp L2
[2021-11-21] MEDS: oxyCODONE 5 MG Tablet PO (15:12)
[2021-11-21 15:46] LABS: Bacteria 0 SEEN /hpf (None Seen); Mucous, Urine 0 SEEN /hpf (<or=2+); Squamous Epithelial Cells - UA 0 SEEN /hpf (0-5); White Blood Cells 0 SEEN /hpf (0-5)
[2021-11-21 15:49] LABS: Color, Urine Yellow (Yellow); Glucose, Dipstick Normal (Normal); Ketone-Dipstick Negative (Negative); Leukocyte Esterase-Dipstick Negative /ul (Negative); Nitrite-Dipstick Negative (Negative); Occult Blood-Urine 25 /ul (Negative); Protein-Dipstick Negative (Negative); Specific Gravity, Urine 1.015 (1.002-1.030); Urine Bilirubin Dipstick Negative (Negative); Urine Clarity Clear (Clear); Urine Urobilinogen 8 mg/dl (Normal)
[2021-11-21 15:55] LABS: Red Blood Cells-Urine 0-5 SEEN /hpf (0-5)
--- NOTE | 2021-11-21 17:25 | CT_ITS ---
STUDY: CT ABDOMEN AND PELVIS WITHOUT CONTRAST REASON FOR EXAM: Male, 41 years old. flank pain RADIATION DOSAGE (If Supplied By Facility): CTDIvol = ( 8.39 ) mGy, DLP = ( 452.76 ) mGycm TECHNIQUE: Transaxial images were obtained from the dome of the diaphragm to the symphysis pubis without oral contrast, and without intravenous contrast. Sagittal and coronal images were reconstructed. Individualized dose optimization techniques were used for this CT. COMPARISON: 04/26/2021 FINDINGS: There is minor subsegmental atelectasis in right lower lobe.. The visualized portions of the heart are within normal limits. Liver is mildly enlarged and fatty infiltrated without mass or bile duct dilatation. The gallbladder has been removed surgically. Spleen is upper normal in size.. Normal pancreas. Normal bilateral adrenal glands. There are 2 tiny nonobstructing bilateral renal calculi. No evidence for renal obstruction or mass There is diffuse nonspecific gastric distention of uncertain etiology or clinical significance.. Nonspecific ileus diffuse fecal retention in the colon.. No evidence for acute appendicitis Minor atherosclerotic changes of the aorta without evidence for aneurysm. Normal inferior vena cava. Normal retroperitoneum. Nonspecific diffuse bladder distention. Normal abdominal wall. Normal osseous structures. CT/Abdomen/Pelvis without Cont IMPRESSION: Nonspecific hepatomegaly and borderline splenomegaly. Bilateral nephrolithiasis without evidence for hydronephrosis or mass Nonspecific gastric distention and mild ileus with diffuse fecal retention in colon No evidence for small bowel obstruction Electronically Signed: Asif Britt MD at 18:23 EDT ,
[2021-11-21] MEDS: 0.9% Saline Lock 10 ML Syringe IV (20:09)
[2021-11-21] MEDS: 0.9% Normal Saline 1,000 ML 100 ML IV (20:09)
[2021-11-21] MEDS: Tamsulosin HCl 0.4 MG Capsule PO (20:10)
[2021-11-21] MEDS: Polyethylene Glycol 3350 17 GM PACKET PO (21:09)
[2021-11-21] MEDS: traZODone 100 MG Tablet PO (22:19)
[2021-11-22 02:18] VITALS: BP 112/85; PULSE 111; RESP 16; TEMP 36.8; O2SAT 97
[2021-11-22] MEDS: LORazepam 1 MG Tablet PO ×2 (02:22→05:32)
[2021-11-22] MEDS: 0.9% Normal Saline 1,000 ML 100 ML IV (05:32)
[2021-11-22 08:34] VITALS: BP 102/75; PULSE 109; RESP 16; TEMP 36.6; O2SAT 97
[2021-11-22] MEDS: NYSTATIN 500,000 UNIT/5 ML UDC 500000 UNIT PO (08:40)
[2021-11-22] MEDS: Folic Acid 1 MG Tablet PO (08:40)
[2021-11-22] MEDS: Thiamine Hydrochloride 100 MG Tablet PO (08:40)
[2021-11-22] MEDS: APIXABAN 5 MG TABLET PO (08:40)
[2021-11-22] MEDS: Potassium Chloride Oral Tablet 20 MEQ 40 MEQ PO (08:40)
[2021-11-22] MEDS: Polyethylene Glycol 3350 17 GM PACKET PO (08:40)
[2021-11-22] MEDS: Pantoprazole Sodium 40 MG Tablet PO (08:40)
--- NOTE | 2021-11-22 09:08 | DCINST_ITS ---
Discharge Instructions Diet Discharge Diet: No restrictions Activity Discharge Activity: Return to Normal Activity Follow Up Care Test Results: Test results from this visit will be discussed in further detail at your follow- up appointment, if applicable. Discharge Plan Admission Admit Date/Time: 11/19/21 21:04 Primary Reason for Your Visit: Acute alcohol withdrawal Attending Provider: Zonia Batres Primary Care Provider: Luis Riley Consulting Providers: Doyle Oneal ; Deana Akins Instructions Additional Instructions / Restrictions: You are strongly advised to avoid alcohol or use of any illicit drug. Avoid smoking. Follow-up with your outpatient rehab program as scheduled. Discharge Orders/Prescriptions Prescriptions: New nicotine 14 mg/24 hr Patch 24 Hour 14 mg transdermal DAILY 7 Days Qty: 7 0RF tamsulosin 0.4 mg Capsule 0.4 mg PO DAILY@1730 30 Days Qty: 30 0RF Continued buprenorphine-naloxone 8-2 mg tablet, sublingual 1 tab SUBLINGUAL DAILY Label Comments: DISSOLVE ONE TABLET UNDER THE TONGUE DAILY Eliquis 5 mg tablet 5 mg PO BID Label Comments: TAKE 2 TABLETS BY MOUTH TWICE DAILY FOR THE FIRST WEEK, THEN TAKE 1 TABLET BY MOUTH TWICE DAILY AFTER promethazine 25 mg tablet 25 mg PO TID PRN (Reason: nausea and vomiting) Qty: 20 0RF ondansetron 4 mg tablet,disintegrating 4 mg PO Q8H PRN (Reason: nausea and vomiting) Qty: 20 0RF omeprazole 40 mg capsule,delayed release(DR/EC) 40 mg PO DAILY Qty: 30 0RF sucralfate [Carafate] 100 mg/mL suspension 10 ml PO BID PRN (Reason: epigastric pain) Qty: 400 0RF Referrals / Follow Up: Luis Riley MD [Primary Care Provider] - Within 1 Week Disposition Disposition (needs filled in before D/C Order can be placed): Home, Self Care
--- NOTE | 2021-11-22 09:16 | DS.PCM_ITS ---
Providers Date of Admission: 11/19/21 Date of Discharge: 11/22/21 Primary Care Physician: Dr. Luis Riley MD Reason For Visit: ALCOHOL DETOX Diagnosis Discharge Diagnosis (1) Alcohol dependence: Status: Acute Code(s): F10.20 - Alcohol dependence, uncomplicated (2) Desire for detoxification: Status: Acute (3) Hypokalemia: Status: Acute Code(s): E87.6 - Hypokalemia (4) Hypomagnesemia: Status: Acute Code(s): E83.42 - Hypomagnesemia (5) Alcoholic hepatitis: Status: Acute Code(s): K70.10 - Alcoholic hepatitis without ascites Medications at Discharge Home Medications buprenorphine 8 mg-naloxone 2 mg sublingual tablet 1 tab sublingual DAILY opiate withdrawal 11/11/21 apixaban 5 mg tablet (Eliquis) 5 mg PO BID PE 11/15/21 omeprazole 40 mg capsule,delayed release 40 mg PO DAILY #30 caps 11/15/21 ondansetron 4 mg disintegrating tablet 4 mg PO Q8H PRN nausea and vomiting #20 tabs 11/15/21 promethazine 25 mg tablet 25 mg PO TID PRN nausea and vomiting #20 tabs 11/15/21 sucralfate 100 mg/mL oral suspension (Carafate) 10 ml PO BID PRN epigastric pain #400 mL 11/15/21 nicotine 14 mg/24 hr daily transdermal patch 14 mg transdermal DAILY 7 days #7 ea 11/22/21 Hospital Course Operations None Procedures None Summary of Care Provided Minutes Spent on Discharge: 35 Hospital Course: 41-year-old male with past medical history of alcohol abuse who comes in requesting for medical stabilization from acute alcohol withdrawal. Patient stated that he was going through a divorce and that contributed to his relapse. His last drink was 6:30 PM prior to admission. Patient is on Eliquis for recent diagnosis of DVT/PE from protein C deficiency. He was admitted to the [facility] floor and managed on the phenobarbital withdrawal protocol. He generally did well. He was seen by addiction medicine social studies teacher; patient plans to follow-up with [place] addiction medicine for intensive outpatient program and counseling services. On 11/22/21 patient complained of right flank pain, UA showed 25 red blood cells per field, CT abdomen pelvis showed nonspecific hepatomegaly, borderline splenomegaly, bilateral nephrolithiasis without evidence of necrosis or mass. Diffuse fecal retention in the colon. Patient was given stool softeners with positive results. On the day of discharge, patient was seen examined. Denied any new complaints. His flank pain was mild. No acute events overnight. Physical Exam Narrative Physical exam: General: Alert, Oriented x3, Cooperative, No apparent distress HEENT: Atraumatic Oral: Moist Mucosa Neck: Supple Lungs: Clear to auscultation Cardiovascular: HS I+II, regular, no murmurs Abdomen: Bowel Sounds Present, Soft, slight right upper quadrant tenderness, no guarding or rebound tenderness. Extremities: No edema Skin: No rashes, No breakdown Neurological: Grossly intact Psych/Mental Status: Appropriate Weight / BMI Weight Weight: 70.307 kg Body Mass Index (BMI) 20.4 ABG / Lab / Microbiology Data Result Diagrams: 11/19/21 20:01 11/21/21 04:40 Laboratory: Laboratory Results - last 24 hr 11/21/21 15:35: Urine Color Yellow, Urine Clarity Clear, Urine pH 8.0, Ur Specific [place] 1.015, Urine Protein Negative, Urine Glucose (UA) Normal, Urine Ketones Negative, Urine Occult Blood 25 H, Urine Nitrite Negative, Urine Bilirubin Negative, Urine Urobilinogen 8 H, Ur Leukocyte Esterase Negative, Urine RBC 0-5 SEEN, Urine WBC 0 SEEN, Ur Squamous Epith Cells 0 SEEN, Urine Bacteria 0 SEEN, Urine Mucus 0 SEEN Radiography Diagnostic Testing: Radiology Impression Abdomen/Pelvis CT 11/21/21 17:25 IMPRESSION: Nonspecific hepatomegaly and borderline splenomegaly. Bilateral nephrolithiasis without evidence for hydronephrosis or mass Nonspecific gastric distention and mild ileus with diffuse fecal retention in colon No evidence for small bowel obstruction Electronically Signed: Asif Britt MD at 18:23 EDT , D/C Instructions Discharge Diet: No restrictions Meaningful Use Info Meaningful Use Diagnoses (Choose all that apply): None applicable Discharge Plan Admission Admit Date/Time: 11/19/21 21:04 Primary Reason for Your Visit: Acute alcohol withdrawal Attending Provider: Zonia Batres Primary Care Provider: Luis Riley Consulting Providers: Doyle Oneal ; Deana Akins Instructions Additional Instructions / Restrictions: You are strongly advised to avoid alcohol or use of any illicit drug. Avoid smoking. Follow-up with your outpatient rehab program as scheduled. Discharge Orders/Prescriptions Prescriptions: New nicotine 14 mg/24 hr Patch 24 Hour 14 mg transdermal DAILY 7 Days Qty: 7 0RF Continued buprenorphine-naloxone 8-2 mg tablet, sublingual 1 tab SUBLINGUAL DAILY Label Comments: DISSOLVE ONE TABLET UNDER THE TONGUE DAILY Eliquis 5 mg tablet 5 mg PO BID Label Comments: TAKE 2 TABLETS BY MOUTH TWICE DAILY FOR THE FIRST WEEK, THEN TAKE 1 TABLET BY MOUTH TWICE DAILY AFTER promethazine 25 mg tablet 25 mg PO TID PRN (Reason: nausea and vomiting) Qty: 20 0RF ondansetron 4 mg tablet,disintegrating 4 mg PO Q8H PRN (Reason: nausea and vomiting) Qty: 20 0RF omeprazole 40 mg capsule,delayed release(DR/EC) 40 mg PO DAILY Qty: 30 0RF sucralfate [Carafate] 100 mg/mL suspension 10 ml PO BID PRN (Reason: epigastric pain) Qty: 400 0RF Referrals / Follow Up: Luis Riley MD [Primary Care Provider] - Within 1 Week Disposition Disposition (needs filled in before D/C Order can be placed): Home, Self Care Charges/Coding Visit Charges Inpatient E&M: 76237 Disch Hosp
[2021-11-22 09:54] LABS: ALB/GLOB Ratio 0.6 RATIO (0.9-2.4); AST(SGOT) 195 U/L (15-37); Alanine Aminotransfer ALT/SGPT 78 U/L (16-61); Albumin, Serum 2.7 g/dL (3.2-5.0); Alkaline Phosphatase 188 U/L (45-117); Anion Gap 7 (5-15); BUN 7 mg/dL (7-18); BUN/Creat Ratio 9.1 RATIO (10-20); Calcium,Total 8.9 mg/dL (8.5-10.1); Chloride 101 mmol/L (98-107); Creatinine, Serum 0.77 mg/dL (0.70-1.30); EST Glomerular Filtration Rate 118 mL/min (>60); Est Glom Filt Rate - Afr Amer 143 mL/min (>60); Estimated Creatinine Clearance 125.55 ml/min; Globulin 4.2 g/dL (2.2-4.2); Glucose 111 mg/dL (74-106); Magnesium 1.6 mg/dL (1.6-2.6); Potassium 4.5 mmol/L (3.5-5.1); Protein, Total 6.9 g/dL (6.4-8.2); Sodium Level 135 mmol/L (136-145)
== END 2021-11-22 10:48 | disposition home or self-care (01) | DRG 897 ==
LOC: ED 20:49 → MS3 11-20 05:38
PROVIDERS: Internal Medicine; Nurse Practitioner Family; Admitting Provider Hospitalist; Emergency Provider Emergency Medicine; PCP Family Medicine; Visit Provider Internal Medicine
DX: F10.239 Alcohol dependence with withdrawal, unspecified (principal); B37.0 Candidal stomatitis; D68.59 Other primary thrombophilia; F11.10 Opioid abuse, uncomplicated; E87.6 Hypokalemia; F17.210 Nicotine dependence, cigarettes, uncomplicated; F41.9 Anxiety disorder, unspecified; K21.9 Gastro-esophageal reflux disease without esophagitis; K70.10 Alcoholic hepatitis without ascites; E83.42 Hypomagnesemia; F32.A Depression, unspecified; Z87.442 Personal history of urinary calculi; Z79.899 Other long term (current) drug therapy; Z79.01 Long term (current) use of anticoagulants; Z86.718 Personal history of other venous thrombosis and embolism; Z86.711 Personal history of pulmonary embolism; Z63.9 Problem related to primary support group, unspecified
CPT/HCPCS: 36415; 74176; 80053; 80307; 81001; 82077; 83690; 83735; 84100; 84132; 85025; 85610; 85730; 99285; 99406; J7030; A4216

== ENCOUNTER 2022-01-02 00:39 | Inpatient (IN) | payer MEDICAID, SELFPAY ==
[2022-01-02] VITALS (9 sets, daily range): BP systolic 110–140; BP diastolic 67–96; PULSE 104–139; RESP 16–20; TEMP 36.4–36.8; O2SAT 93–99; BMI 21.4
--- NOTE | 2022-01-02 01:06 | EX.ED.SAOD ---
HPI History of Present Illness Chief Complaint: Substance Abuse Narrative Narrative: 41-year-old male presenting with desire for detox from alcohol. He is detox before. He states he was here a couple of months ago for detox from alcohol. Patient also states that he was lost outpatient follow-up. He admits to drinking 15 shots of fireball per day. He states his last drink was before coming to the ER. He states usually about 1 to 2 hours after he stops drinking he will get a little shaky and start coughing. Patient also notes that he has gained about 6 or 7 pounds. He states that his abdomen is a little more distended. He has lower extremity swelling. He also feels as if his face is swollen. Patient notes dark urine. PFSH PFSH Medical History Alcohol abuse Alcoholic liver disease Anxiety and depression History of narcotic addiction History of venous thromboembolism Kidney stones Migraine Protein C deficiency Tobacco use Home Medications buprenorphine 8 mg-naloxone 2 mg sublingual tablet 1 tab sublingual DAILY opiate withdrawal 11/11/21 [History Last Taken 11/19/21] apixaban 5 mg tablet (Eliquis) 5 mg PO BID PE 11/15/21 [History Last Taken 11/19/21] omeprazole 40 mg capsule,delayed release 40 mg PO DAILY #30 caps 11/15/21 [Rx Last Taken 11/19/21] ondansetron 4 mg disintegrating tablet 4 mg PO Q8H PRN nausea and vomiting #20 tabs 11/15/21 [Rx Last Taken Unknown] promethazine 25 mg tablet 25 mg PO TID PRN nausea and vomiting #20 tabs 11/15/21 [Rx Last Taken Unknown] sucralfate 100 mg/mL oral suspension (Carafate) 10 ml PO BID PRN epigastric pain #400 mL 11/15/21 [Rx Last Taken 11/19/21] nicotine 14 mg/24 hr daily transdermal patch 14 mg transdermal DAILY 7 days #7 ea 11/22/21 [Rx Last Taken Unknown] Allergy/AdvReac Type Severity Reaction Status Date / Time No Known Allergies Allergy Verified 01/02/22 00:45 Family History Mother Breast cancer Thyroid disorder Father Thyroid disorder Surgical History History of cholecystectomy History of foot surgery History of hand surgery History of hernia repair History of surgery on left wrist Necks Fusion Social History household members: significant other Smoking Status: Current every day smoker tobacco type: cigarettes alcohol intake: current alcohol intake frequency: 3 or more drinks per day details: Hard liquor, 10-15 shots daily. substance use type: former substance user seatbelt use: always do you feel safe at home: Yes ROS ROS ED Constitutional Constitutional ED: Denies chills or fever(s) Eyes Eyes: Denies change in vision ENT ENT ED: Denies rhinorrhea or sore throat Cardiovascular Cardiovascular: Denies chest pain or palpitations Respiratory/Chest Respiratory/Chest: Denies cough or dyspnea Gastrointestinal Gastrointestinal: Reports abdominal pain and nausea Genitourinary Genitourinary ED: Denies dysuria Musculoskeletal Musculoskeletal: Denies arthralgias or back pain Integumentary Denies abscess or Abrasions Neurologic Neurologic: Denies headache(s) Psychiatric Psychiatric: Denies anxiety or depression Endocrine Endocrinology: Denies cold intolerance or heat intolerance EXAM Physical Exam Const Vital Signs: 01/02/22 00:40 Temperature 97.9 F Temperature Source Temporal Pulse Rate 139 H Respiratory Rate 18 Blood Pressure 140/96 H Blood Pressure Mean 110 Pulse Ox 95 Oxygen Delivery Method Room Air Positive well nourished General Appearance ED: NAD; Negative for pallor HEENT Reports moist mucous membranes atraumatic Eyes General Eye ED: Negative for pale conjunctiva or scleral icterus Neck no lymphadenopathy Resp normal respiratory effort Auscultation: Negative for rales, rhonchi or wheezes Cardio regular rate and regular rhythm GI Inspection: abdominal distention Palpation: Negative for guarding or rigid Back/Spine no CVA tenderness Neuro oriented x3 and CN's II-XII intact bilaterally Sensorium / Orientation: alert Speech: speech normal Motor Exam: strength 5/5 throughout Psych mental status grossly normal and thought process normal Skin General Skin Exam: Negative for jaundice or pallor MDM MDM MDM Narrative Medical decision making narrative: Patient presenting for alcohol detox. Last drink prior to arrival. Admits to 15 shots of fireball per day. Patient has baseline nausea which she has all the time. He was given Zofran for this. He was given a milligram of Ativan because he was feeling a little shaky. Patient was tachycardic and a little hypertensive on arrival. EtOH today was 44. CBC shows no leukocytosis. Hemoglobin hematocrit are stable. Platelets are normal. Renal function is normal today. Potassium slightly low at 3.1. Magnesium is also low at 1.4. These will be repleted. Total bilirubin 2.00, AST 89, ALT 33, alkaline phosphatase 215. While these are little elevated they are not as high as they have been in the past. Likely due to alcohol abuse. Lipase is normal. Urinalysis negative for infection. Urine drug screen negative. I obtained a CT abdomen pelvis of the patient's concern his abdomen was distended and he had gained weight however the CT of the abdomen pelvis does not show any acute abnormality. I do not see any ascites. At this point I will admit the patient for detox. Impression: 1. EtOH abuse 2. Nausea 3. Hypokalemia 4. Hypomagnesemia 5. Abdominal pain 6. Transaminitis 7. Desire alcohol detox Lab Data Attestation: I reviewed the patient's lab results. Labs: Laboratory Results - last 24 hr 01/02/22 01/02/22 01/02/22 00:50 00:59 00:59 WBC 10.6 RBC 4.43 L Hgb 16.0 Hct 46.9 MCV 105.9 H MCH 36.1 H MCHC 34.1 RDW Std Deviation 62.8 H RDW Coeff of Margaret 15.9 H Plt Count 174 MPV 11.2 Immature Gran % (Auto) 0.600 Neut % (Auto) 72.0 H Lymph % (Auto) 18.6 L [place] % (Auto) 7.6 Eos % (Auto) 0.6 Baso % (Auto) 0.6 Absolute Neuts (auto) 7.7 Absolute Lymphs (auto) 1.98 Nucleated RBC % 0 Sodium 137 Potassium 3.1 L Chloride 98 Carbon Dioxide 28.0 Anion Gap 11 BUN 3 L Creatinine 0.75 Estim Creat Clear Calc 134.75 Est GFR (MDRD) Af Amer 146 Est GFR (MDRD) Non-Af 121 BUN/Creatinine Ratio 4.0 L Glucose 149 H Calcium 9.0 Magnesium 1.4 L Total Bilirubin 2.00 H AST 89 H ALT 33 Alkaline Phosphatase 215 H Total Protein 8.3 H Albumin 3.1 L Globulin 5.2 H Albumin/Globulin Ratio 0.6 L Lipase 81 Urine Color Yellow Urine Clarity Clear Urine pH 7.0 Ur Specific [place] 1.005 Urine Protein Negative Urine Glucose (UA) Normal Urine Ketones Negative Urine Occult Blood Negative Urine Nitrite Negative Urine Bilirubin Negative Urine Urobilinogen 8 H Ur Leukocyte Esterase 25 H Urine RBC 0 SEEN Urine WBC 0 SEEN Ur Squamous Epith Cells 0 SEEN Amorphous Sediment 1+ Urine Bacteria 1+ Urine Mucus 0 SEEN Urine Opiates Screen Urine Methadone Screen Ur Barbiturates Screen Ur Phencyclidine Scrn Ur Amphetamines Screen MDMA (Ecstasy) Screen U Benzodiazepines Scrn Urine Cocaine Screen U Cannabinoids Screen Ur Drug Screen Comment Ethyl Alcohol 01/02/22 01/02/22 00:59 00:59 WBC RBC Hgb Hct MCV MCH MCHC RDW Std Deviation RDW Coeff of Margaret Plt Count MPV Immature Gran % (Auto) Neut % (Auto) Lymph % (Auto) [place] % (Auto) Eos % (Auto) Baso % (Auto) Absolute Neuts (auto) Absolute Lymphs (auto) Nucleated RBC % Sodium Potassium Chloride Carbon Dioxide Anion Gap BUN Creatinine Estim Creat Clear Calc Est GFR (MDRD) Af Amer Est GFR (MDRD) Non-Af BUN/Creatinine Ratio Glucose Calcium Magnesium Total Bilirubin AST ALT Alkaline Phosphatase Total Protein Albumin Globulin Albumin/Globulin Ratio Lipase Urine Color Urine Clarity Urine pH Ur Specific [place] Urine Protein Urine Glucose (UA) Urine Ketones Urine Occult Blood Urine Nitrite Urine Bilirubin Urine Urobilinogen Ur Leukocyte Esterase Urine RBC Urine WBC Ur Squamous Epith Cells Amorphous Sediment Urine Bacteria Urine Mucus Urine Opiates Screen NEGATIVE Urine Methadone Screen NEGATIVE Ur Barbiturates Screen NEGATIVE Ur Phencyclidine Scrn NEGATIVE Ur Amphetamines Screen NEGATIVE MDMA (Ecstasy) Screen NEGATIVE U Benzodiazepines Scrn NEGATIVE Urine Cocaine Screen NEGATIVE U Cannabinoids Screen NEGATIVE Ur Drug Screen Comment Ethyl Alcohol 44.0 Radiography Diagnostic Testing: Clinical Impression(s) from Imaging Studies Abdomen/Pelvis CT 01/02/22 01:11 IMPRESSION: No acute inflammatory disease or bowel obstruction. Electronically Signed: David Morejon MD at 2:10 EST , Discharge Plan Triage Chief Complaint: Substance Abuse ED Provider: Alexandro Lazo Dx/Rx/DC Orders Prescriptions: No Action buprenorphine-naloxone 8-2 mg tablet, sublingual 1 tab SUBLINGUAL DAILY Label Comments: DISSOLVE ONE TABLET UNDER THE TONGUE DAILY Eliquis 5 mg tablet 5 mg PO BID Label Comments: TAKE 2 TABLETS BY MOUTH TWICE DAILY FOR THE FIRST WEEK, THEN TAKE 1 TABLET BY MOUTH TWICE DAILY AFTER promethazine 25 mg tablet 25 mg PO TID PRN (Reason: nausea and vomiting) Qty: 20 0RF ondansetron 4 mg tablet,disintegrating 4 mg PO Q8H PRN (Reason: nausea and vomiting) Qty: 20 0RF omeprazole 40 mg capsule,delayed release(DR/EC) 40 mg PO DAILY Qty: 30 0RF sucralfate [Carafate] 100 mg/mL suspension 10 ml PO BID PRN (Reason: epigastric pain) Qty: 400 0RF nicotine 14 mg/24 hr Patch 24 Hour 14 mg transdermal DAILY 7 Days Qty: 7 0RF Primary Care Provider: Luis Riley Referrals: Luis Riley MD [Primary Care Provider] -
--- NOTE | 2022-01-02 01:11 | CT_ITS ---
EXAM: CT ABDOMEN AND PELVIS WITHOUT INTRAVENOUS CONTRAST CLINICAL INDICATION: abdominal distention TECHNIQUE: Helically acquired images were obtained of the abdomen and pelvis without intravenous contrast. CTDIvol = ( 6.95 ) mGy, DLP = ( 380.34 ) mGycm This CT exam was performed using one or more of the following dose reduction techniques: automated exposure control, adjustment of the mA and/or kV according to patient size, and/or use of iterative reconstruction technique. This report was created using [email or web address] report generation technology. COMPARISON: 11/21/2021 FINDINGS: LOWER THORAX: Unremarkable. Lung bases are clear. No cardiomegaly. No significant pericardial effusion. ABDOMEN: LIVER: Hepatic steatosis and hepatomegaly. GALLBLADDER AND BILE DUCTS: Unremarkable. No calcified gallstones. No gallbladder distention or wall edema. No intra- or extrahepatic biliary ductal dilation. PANCREAS: Unremarkable. No focal cystic mass. SPLEEN: Unremarkable. Normal size without focal cystic or solid mass. ADRENALS: Unremarkable. No nodules. KIDNEYS AND URETERS: Bilateral renal calyceal calculi, nonobstructing. No other renal abnormalities. Normal renal size and position. STOMACH AND BOWEL: Unremarkable. No stomach or bowel distention. No focal inflammatory change. PELVIS: APPENDIX: Normal appendix. BLADDER: Unremarkable. REPRODUCTIVE: Unremarkable as visualized. No mass. ABDOMEN and PELVIS: INTRAPERITONEAL SPACE: Unremarkable. No ascites or other fluid collection. No free air. BONES/JOINTS: No unusual lytic or sclerotic lesions of bone. SOFT TISSUES: Unremarkable. No discrete abdominal or pelvic wall hernia. VASCULATURE: Unremarkable. Abdominal aorta is non-dilated. LYMPH NODES: Unremarkable. No enlarged lymph nodes. CT/Abdomen/Pelvis without Cont IMPRESSION: No acute inflammatory disease or bowel obstruction. Electronically Signed: David Morejon MD at 2:10 EST ,
[2022-01-02] MEDS: Ondansetron 4 MG/2 ML Vial IV (01:14)
[2022-01-02] MEDS: LORazepam 2 MG/ML Syringe 1 MG IV (01:17)
[2022-01-02 01:20] LABS: Absolute Lymphocyte Count 1.98 X10^3/uL (0.83-4.51); Absolute Neutrophil Count 7.7 X10^3/uL (2.0-7.7); Basophil# 0.06 X10^3/uL; Basophil% 0.6 % (0-1); Eosinophil# 0.06 X10^3/uL; Eosinophils% 0.6 % (0-5); Hematocrit 46.9 % (40-54); Lymphocyte # 1.98 X10^3/ul (0.83-4.51); Lymphocyte % 18.6 % (19-41); Mean Corp Hgb Conc 34.1 g/dL (32-36); Mean Corpuscular Hgb 36.1 pg (27.0-32.0); Mean Corpuscular Volume 105.9 fL (80-94); Mean Platelet Vol. 11.2 fl (6.2-12.0); Monocyte# 0.81 X10^3/uL; Monocyte% 7.6 % (0-10); NRBC Flagged by Analyzer 0 % (0-5); Neutrophil # 7.65 X10^3/uL (2.7-7.7); Platelet Count 174 K/mm3 (150-450); RBC Distribution Width CV 15.9 % (11.6-14.6); RBC Distribution Width SD 62.8 fl (35.1-43.9); Red Blood Count 4.43 M/mm3 (4.6-6.2); White Blood Count 10.6 K/mm3 (4.4-11.0)
[2022-01-02 01:30] LABS: Amphetamine Urine VISTA NEGATIVE (<1000 ng/mL); Barbiturate Urine VISTA NEGATIVE (< 200 ng/mL); Benzodiazepine Urine VISTA NEGATIVE (< 200 ng/mL); Cocaine Urine VISTA NEGATIVE (< 300 ng/mL); Ecstacy Urine VISTA NEGATIVE (< 500 ng/mL); Methadone Urine VISTA NEGATIVE (< 300 ng/mL); PCP Urine VISTA NEGATIVE (< 25 ng/mL); THC Urine VISTA NEGATIVE (< 50 ng/mL); Vista UDS pH Range 7
[2022-01-02 01:34] LABS: ALB/GLOB Ratio 0.6 RATIO (0.9-2.4); AST(SGOT) 89 U/L (15-37); Alanine Aminotransfer ALT/SGPT 33 U/L (16-61); Albumin, Serum 3.1 g/dL (3.2-5.0); Alkaline Phosphatase 215 U/L (45-117); Anion Gap 11 (5-15); BUN 3 mg/dL (7-18); Chloride 98 mmol/L (98-107); Creatinine, Serum 0.75 mg/dL (0.70-1.30); EST Glomerular Filtration Rate 121 mL/min (>60); Est Glom Filt Rate - Afr Amer 146 mL/min (>60); Estimated Creatinine Clearance 134.75 ml/min; Globulin 5.2 g/dL (2.2-4.2); Glucose 149 mg/dL (74-106); Lipase 81 U/L (73-393); Magnesium 1.4 mg/dL (1.6-2.6); Potassium 3.1 mmol/L (3.5-5.1); Protein, Total 8.3 g/dL (6.4-8.2); Sodium Level 137 mmol/L (136-145)
[2022-01-02 01:51] LABS: Color, Urine Yellow (Yellow); Glucose, Dipstick Normal (Normal); Ketone-Dipstick Negative (Negative); Leukocyte Esterase-Dipstick 25 /ul (Negative); Mucous, Urine 0 SEEN /hpf (<or=2+); Nitrite-Dipstick Negative (Negative); Occult Blood-Urine Negative /ul (Negative); Protein-Dipstick Negative (Negative); Red Blood Cells-Urine 0 SEEN /hpf (0-5); Specific Gravity, Urine 1.005 (1.002-1.030); Squamous Epithelial Cells - UA 0 SEEN /hpf (0-5); Urine Bilirubin Dipstick Negative (Negative); Urine Clarity Clear (Clear); Urine Urobilinogen 8 mg/dl (Normal); White Blood Cells 0 SEEN /hpf (0-5)
[2022-01-02 02:00] LABS: Amorphous Sediment 1+; Bacteria 1+ /hpf (None Seen)
[2022-01-02] MEDS: Potassium Chloride Oral Tablet 20 MEQ 40 MEQ PO (02:21)
--- NOTE | 2022-01-02 02:27 | HP.PCM.HOS_ITS ---
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), Alcoholic liver disease following w/ DrJulisa Friend w/ chronically elevated Bilirubin/LFTs, Anxiety and Depression, Chronic back pain, Chronic migraines, GERD, Tobacco use, History of Opiate abuse on suboxone chroni brandi, EtOH abuse with frequent liquor intake with at least 10-15 shots per day with most recent detox prior 11/19/2021 with relapse at that time secondary to his divorce discharged on 11/22/2021 following completion of his taper who now represents to the [facility] ED on 01/02/22 with history of resumption of alcohol intake with again significant fireball intake daily of at least 10-15 shots with last drink prior to ED presentation with onset of withdrawal symptoms while in the ED reporting that usually within a couple hours if he does not have another drink he starts to become tremulous and shaky with tactile disturbances as well as nausea also incidentally complaining about approximately 5 to 6 pound weight gain and mildly increased abdominal distention above his baseline as well as lower extremity swelling. He does report recent constipation and on hospitalist ED evaluation patient with no marked pain with palpation with notably diffuse hyperactive bowel sounds. Work-up in the ED included T97.9, heart rate 139, BP 140/96, respiratory rate 18, 95% on room air, CBC with WC 10.6, hemoglobin 16, platelet 174 without marked shift, CMP with potassium 3.1, BUN/creatinine 3/0.75, glucose 149, magnesium 1.4, T bili 2.0, AST/ALT 89/33, alk phos 215, lipase 81, urinalysis not marked appearing, UDS negative, ethyl alcohol 44, CT abdomen and pelvis with no acute intra-abdominal process. In the ED patient administered potassium 40 mill equivalent p.o. x1, Zofran 4 mg IV x1 as well as Ativan 1 mg IV x1. [facility] Medical History Alcohol abuse Alcoholic liver disease Anxiety and depression History of narcotic addiction History of venous thromboembolism Kidney stones Migraine Protein C deficiency Tobacco use Home Medications buprenorphine 8 mg-naloxone 2 mg sublingual tablet 1 tab sublingual DAILY opiate withdrawal 11/11/21 [History Last Taken 11/19/21] apixaban 5 mg tablet (Eliquis) 5 mg PO BID PE 11/15/21 [History Last Taken 11/19/21] omeprazole 40 mg capsule,delayed release 40 mg PO DAILY #30 caps 11/15/21 [Rx Last Taken 11/19/21] ondansetron 4 mg disintegrating tablet 4 mg PO Q8H PRN nausea and vomiting #20 tabs 11/15/21 [Rx Last Taken Unknown] promethazine 25 mg tablet 25 mg PO TID PRN nausea and vomiting #20 tabs 11/15/21 [Rx Last Taken Unknown] sucralfate 100 mg/mL oral suspension (Carafate) 10 ml PO BID PRN epigastric pain #400 mL 11/15/21 [Rx Last Taken 11/19/21] nicotine 14 mg/24 hr daily transdermal patch 14 mg transdermal DAILY 7 days #7 ea 11/22/21 [Rx Last Taken Unknown] Allergy/AdvReac Type Severity Reaction Status Date / Time No Known Allergies Allergy Verified 01/02/22 00:45 Family History Mother Breast cancer Thyroid disorder Father Thyroid disorder Surgical History History of cholecystectomy History of foot surgery History of hand surgery History of hernia repair History of surgery on left wrist Necks Fusion Social History (Updated 01/02/22 @ 03:[address] María Elena Steiner MD) household members: significant other Smoking Status: Current every day smoker tobacco type: cigarettes Smoking packs per day: 1 Smoking cigarettes per day: 20.0 alcohol intake: current alcohol intake frequency: 3 or more drinks per day details: Hard liquor, 10-15 shots daily. substance use type: former substance user seatbelt use: always do you feel safe at home: Yes ROS ROS Narrative Admission Review of Systems: CONSTITUTIONAL: No weight loss, fever, chills, + weakness or fatigue. HEENT: Eyes: No visual loss, blurred vision, double vision or yellow sclerae. Ears, Nose, Throat: No hearing loss, sneezing, congestion, runny nose or sore throat. SKIN: No rash or itching, lesions, wounds. CARDIOVASCULAR: + Edema. No chest pain, chest pressure or chest discomfort, palpitations, orthopnea, syncopal events. RESPIRATORY: No shortness of breath, cough or sputum, wheezing, hemoptysis. GASTROINTESTINAL: + anorexia, nausea without vomiting, constipation, complaint of mild distention, No melena, BRBPR. GENITOURINARY: No dysuria, frequency, urgency or retention. NEUROLOGICAL: + Tremors, tactile disturbances, No headache, dizziness, syncope, paralysis, ataxia, numbness or tingling in the extremities, focal weakness, change in bowel or bladder control, seizure. MUSCULOSKELETAL: + muscle, back pain, joint pain or stiffness. HEMATOLOGIC: No anemia, bleeding or bruising. LYMPHATICS: No enlarged nodes. No history of splenectomy. PSYCHIATRIC: No history of depression or anxiety. ENDOCRINOLOGIC: No reports of sweating, cold or heat intolerance. No polyuria or polydipsia. ALLERGIES: No history of asthma, hives, eczema or rhinitis. Vital Signs Vital Signs Vital Signs: 01/02/22 00:40 Temperature 97.9 F Temperature Source Temporal Pulse Rate 139 H Respiratory Rate 18 Blood Pressure 140/96 H Blood Pressure Mean 110 Pulse Ox 95 Oxygen Delivery Method Room Air Weight Weight: 162 lb 0.636 oz Body Mass Index (BMI) 21.4 Physical Exam Narrative Physical Examination: General: Awake, alert, oriented x 3 and cooperative, seated upright in the ED bed, fatigued, tremulous. Skin: Normal color, normal turgor, no icterus, no cyanosis except occasional a brasion, staged ecchymoses. HEENT: AT/NC, EOMI, PERRLA, mildly dry MM, no carotid bruits or JVD noted. Lungs: Diminished, greater bases, appropriate effort, no rales, ronchi or wheezing. Heart: Tachycardic with regular rhythm; no gallop, rub audible. Abdomen: Soft, no rebound or guarding or any marked pain with palpation, not markedly distended, mildly tympanitic, significant hyperactive bowel sounds, positive HM. Extremities: No cyanosis, no clubbing, no marked pitting edema noted. Neurological: Patient awake, alert, oriented as noted, cognitive function intact; pupils equally reactive to light and accommodation, cranial nerves II- XII grossly normal, moving all 4 extremities, no focal deficits, strength mildly global decrease secondary to acute complaints, mildly tremulous, complaining of tactile disturbances. Psychiatric: Affect appears fatigued, restless, no acute evidence of depressive or anxiety feelings. Results Lab / Micro Data Result Diagrams: 01/02/22 00:59 01/02/22 00:59 Labs: Laboratory Results - last 24 hr 01/02/22 00:50: Urine Color Yellow, Urine Clarity Clear, Urine pH 7.0, Ur Specific [place] 1.005, Urine Protein Negative, Urine Glucose (UA) Normal, Urine Ketones Negative, Urine Occult Blood Negative, Urine Nitrite Negative, Urine Bilirubin Negative, Urine Urobilinogen 8 H, Ur Leukocyte Esterase 25 H, Urine RBC 0 SEEN, Urine WBC 0 SEEN, Ur Squamous Epith Cells 0 SEEN, Amorphous Sediment 1+, Urine Bacteria 1+, Urine Mucus 0 SEEN 01/02/22 00:59: WBC 10.6, RBC 4.43 L, Hgb 16.0, Hct 46.9, MCV 105.9 H, MCH 36.1 H, MCHC 34.1, RDW Std Deviation 62.8 H, RDW Coeff of Margaret 15.9 H, Plt Count 174, MPV 11.2, Immature Gran % (Auto) 0.600, Neut % (Auto) 72.0 H, Lymph % (Auto) 18.6 L, [place] % (Auto) 7.6, Eos % (Auto) 0.6, Baso % (Auto) 0.6, Absolute Neuts (auto) 7.7, Absolute Lymphs (auto) 1.98, Nucleated RBC % 0 01/02/22 00:59: Sodium 137, Potassium 3.1 L, Chloride 98, Carbon Dioxide 28.0, Anion Gap 11, BUN 3 L, Creatinine 0.75, Estim Creat Clear Calc 134.75, Est GFR (MDRD) Af Amer 146, Est GFR (MDRD) Non-Af 121, BUN/Creatinine Ratio 4.0 L, Glucose 149 H, Calcium 9.0, Magnesium 1.4 L, Total Bilirubin 2.00 H, AST 89 H, ALT 33, Alkaline Phosphatase 215 H, Total Protein 8.3 H, Albumin 3.1 L, Globulin 5.2 H, Albumin/Globulin Ratio 0.6 L, Lipase 81 01/02/22 00:59: Ethyl Alcohol 44.0 01/02/22 00:59: Urine Opiates Screen NEGATIVE, Urine Methadone Screen NEGATIVE, Ur Barbiturates Screen NEGATIVE, Ur Phencyclidine Scrn NEGATIVE, Ur Amphetamines Screen NEGATIVE, MDMA (Ecstasy) Screen NEGATIVE, U Benzodiazepines Scrn NEGATIVE, Urine Cocaine Screen NEGATIVE, U Cannabinoids Screen NEGATIVE, Ur Drug Screen Comment Radiology Impression Abdomen/Pelvis CT 01/02/22 01:11 IMPRESSION: No acute inflammatory disease or bowel obstruction. Electronically Signed: David Morejon MD at 2:10 EST Reading Location ID and State: [facility] / [place] Tel , Service support , Assessment & Plan Assessment/Plan (1) Alcohol withdrawal: PLAN: Plan The patient is a 41 y/o M w/ PMHx: Hx Protein C deficiency w/ Hx VTE (recent diagnosis DVT/PE on eliquis), Alcoholic liver disease following w/ Dr. Dewitt w/ chronically elevated Bilirubin/LFTs, Anxiety and Depression, Chronic back pain, Chronic migraines, GERD, Tobacco use, History of Opiate abuse on suboxone chronically, EtOH abuse with frequent liquor intake with at least 10-15 shots per day with most recent detox prior 11/19/2021 with relapse at that time secondary to his divorce discharged on 11/22/2021 following completion of his taper who now represents to the [facility] ED on 01/02/22 with history of resumption of alcohol intake with again significant fireball intake daily of at least 10-15 shots with last drink prior to ED presentation with onset of withdrawal symptoms. #1. Acute Abuse with Impending EtOH Withdrawal: Will admit to [facility], routine labs obtained in the ED upon presentation and pending upon evaluation. Given interest in sobriety, will initiate and continue on protocol with taper course of shorter acting ativan given liver dysfuction as noted to be cautious, scheduled gabapentin for seizure prophylaxis, as needed Catapres, Bentyl, Vistaril, IV fluids, IV antiemetics, Tylenol as needed for pain. Will consult Case management for assistance for transition to next level of rehabilitation care. Mag level pe r ED 1.4 with supplementation ordered, phos pending. Maintain on CIWA protocol concurrently. #2. Hypokalemia: Admission K+ 3.1, magnesium level 1.4 with supplementation also request, supplementation given, repeat level in AM. #3. Hypomagnesia: Admission magnesium per ED physician 1.4, supplementation requested with plan repeat levels in a.m. #4. Hyperglycemia: Admission glucose 149, possibly stress response, hemoglobin C requested to be cautious. #5. Alcoholic liver disease with history of bilirubin, LFT elevations/transaminitis as well as incidental complaint of approximate 5 pound weight gain, lower extremity swelling: Most recent evaluation 12/03/2021 with total bilirubin 0.8 at that time but had previously been 1.6, AST/ALT 103/51, alk phos 212, repeat CMP upon current presentation with T bili 2.0, AST/ALT 89/33, alk phos 215. CT abdomen pelvis with no acute obvious findings, encourage continued outpatient follow-up with gastroenterology. #6. History of VTE with protein C deficiency: Patient with history of DVT, PE, continue patient home chronic Eliquis regimen. #7. GERD: We will continue patient home omeprazole and sucralfate regimen as needed. #8. Tobacco Abuse: Encouraged cessation, NR if desired. #9. History of opiate abuse: We will continue patient home Suboxone chronic therapy. #10. DVT prophylaxis: Continue patient home Eliquis regimen. Charges/Coding Visit Charges Inpatient E&M: 61540 Init Hosp L3
[2022-01-02 02:42] LABS: Phosphorus 2.7 mg/dL (2.5-4.9)
[2022-01-02] MEDS: NYSTATIN 500,000 UNIT/5 ML UDC 500000 UNIT PO ×5 (04:27→20:12)
[2022-01-02] MEDS: LORazepam 1 MG Tablet 0.5 MG PO ×6 (04:27→23:51)
[2022-01-02] MEDS: Lactated Ringers 1,000 ML 125 ML IV (04:27)
[2022-01-02 04:48] LABS: ALB/GLOB Ratio 0.6 RATIO (0.9-2.4); AST(SGOT) 101 U/L (15-37); Alanine Aminotransfer ALT/SGPT 27 U/L (16-61); Albumin, Serum 2.8 g/dL (3.2-5.0); Alkaline Phosphatase 190 U/L (45-117); Anion Gap 6 (5-15); BUN 2 mg/dL (7-18); BUN/Creat Ratio 3.1 RATIO (10-20); Calcium,Total 8.4 mg/dL (8.5-10.1); Chloride 96 mmol/L (98-107); Creatinine, Serum 0.65 mg/dL (0.70-1.30); EST Glomerular Filtration Rate 144 mL/min (>60); Est Glom Filt Rate - Afr Amer 175 mL/min (>60); Globulin 4.6 g/dL (2.2-4.2); Glucose 80 mg/dL (74-106); Magnesium 1.1 mg/dL (1.6-2.6); Potassium 4.5 mmol/L (3.5-5.1); Protein, Total 7.4 g/dL (6.4-8.2); Sodium Level 134 mmol/L (136-145)
[2022-01-02] MEDS: Magnesium Sulfate 4gm/100mL 4 GM/100 ML IV.SOLN. IV (06:33)
[2022-01-02] MEDS: Sucralfate 1 GM Tablet PO ×2 (06:34→16:03)
[2022-01-02] MEDS: Acetaminophen 325 MG Tablet 650 MG PO (06:34)
[2022-01-02] MEDS: Folic Acid 1 MG Tablet PO (09:11)
[2022-01-02] MEDS: Pantoprazole Sodium 40 MG Tablet PO (09:11)
[2022-01-02] MEDS: Thiamine Hydrochloride 100 MG Tablet PO (09:11)
[2022-01-02 09:31] LABS: Hemoglobin A1c 4.6 % (3.8-5.6)
[2022-01-02] MEDS: APIXABAN 5 MG TABLET PO ×2 (10:38→20:12)
--- NOTE | 2022-01-02 12:00 | ADDICTION ---
This policy writer typist met with PT to conduct ASAM, MSE, AUDIT, DUDIT assessments and to plan for d/c. PT A+Ox4 and participated actively. All assessments completed and placed in PT's chart. PT plans to f/u with follow-up treatment services/ Addiction therapist is working on finding placement. [facility] is going to call to screen for [facility] tomorrow. If approved they will have an available bed on Thursday. PT did not indicate a need for transportation post d/c from [facility].
[2022-01-02] MEDS: buprenorphine HCL 8 MG TAB.SUBL SL (16:03)
[2022-01-02] MEDS: Gabapentin 300 MG Capsule PO (18:12)
--- NOTE | 2022-01-02 18:28 | NURSING ---
report called to med-surg transferred with belongings to room 317
[2022-01-02] MEDS: Ibuprofen 600 MG Tablet PO (20:12)
[2022-01-02] MEDS: Loperamide 2 MG Capsule PO (20:13)
[2022-01-02] MEDS: Dicyclomine 10 MG Capsule 20 MG PO (20:13)
[2022-01-02 20:41] LABS: Magnesium 2.1 mg/dL (1.6-2.6)
[2022-01-03] VITALS (7 sets, daily range): BP systolic 95–109; BP diastolic 64–82; PULSE 100–126; RESP 16–18; TEMP 3.1–37.5; O2SAT 95–98
[2022-01-03] MEDS: LORazepam 1 MG Tablet 0.5 MG PO ×5 (03:37→19:36)
[2022-01-03] MEDS: Sucralfate 1 GM Tablet PO ×2 (06:54→15:53)
[2022-01-03] MEDS: Folic Acid 1 MG Tablet PO (08:04)
[2022-01-03] MEDS: Thiamine Hydrochloride 100 MG Tablet PO (08:04)
[2022-01-03] MEDS: Gabapentin 300 MG Capsule PO (08:08)
[2022-01-03] MEDS: APIXABAN 5 MG TABLET PO ×2 (09:24→21:30)
[2022-01-03] MEDS: Pantoprazole Sodium 40 MG Tablet PO (09:25)
[2022-01-03] MEDS: buprenorphine HCL 8 MG TAB.SUBL SL (09:25)
[2022-01-03] MEDS: NYSTATIN 500,000 UNIT/5 ML UDC 500000 UNIT PO ×4 (09:25→21:30)
--- NOTE | 2022-01-03 09:32 | PN.HOSP_ITS ---
Subjective Subjective Doing well, no issues overnight, states that the withdrawal symptoms are improving though he still has some tremors and anxiety. Objective Data Objective Data Vital Signs: Vital Signs Temp Pulse Resp BP Pulse Ox O2 Del Method 98.6 F 110 H 18 107/82 H 97 Room Air 01/03/22 07:59 01/03/22 07:59 01/03/22 07:59 01/03/22 07:59 01/03/22 07:59 01/03/22 07:59 Oxygen Delivery Method Room Air Weight: 162 lb 7.691 oz Body Mass Index (BMI) 21.4 Intake & Output: Intake and Output for Last 24 Hours 01/02/22 01/03/22 01/04/22 03:59 03:59 03:59 Intake Total 3524 / 3524 1000 / 1000 Balance 3524 / 3524 1000 / 1000 Lab / Micro Data Result Diagrams: 01/02/22 00:59 01/02/22 04:14 Labs: Laboratory Results - last 24 hr 01/02/22 20:00: Magnesium 2.1 Physical Exam Narrative General: Alert, Oriented x3, Cooperative, No apparent distress, tremor HEENT: Atraumatic, PERRLA, EOMI, Normocephalic Oral: Moist Mucosa Neck: Supple, No JVD Lungs: Clear to auscultation, Normal air movement, No rhonchi, No wheeze, No rales Cardiovascular: Regular rate, Regular Rhythm, Normal S1, Normal S2, No murmurs Abdomen: Soft, Non Tender, Non-Distended, No Hepato-splenomegaly Extremities: No edema, Capillary Refill Less than 3 Seconds Skin: No rashes, No breakdown Musculoskeletal: No Tenderness to Palpation of Joints or Extremities Neurological: Cranial nerves II-XII grossly intact, Motor Exam 5/5 strength throughout, Sensory exam intact to light touch and pain Psych/Mental Status: Normal Affect, Appropriate, anxious Assessment & Plan Assessment/Plan (1) Alcohol withdrawal: PLAN: Plan 1. Acute alcohol withdrawal/alcoholic liver disease/history of opiate abuse/to bacco abuse ? Continue with the alcohol withdrawal protocol ? Plan outpatient follow-up with 180 ? Given his chronic alcohol liver disease, will place him on Ativan instead of phenobarbital ? His LFTs are at baseline ? We will continue with his buprenorphine ? Discussed cessation of tobacco products 2. History of VTE secondary to protein C deficiency ? Stable ? Continue with Eliquis 3. GERD ? Stable ? Continue with his home medications DVT: Eliquis Charges/Coding Visit Charges Inpatient E&M: 02793 Subs Hosp L2
--- NOTE | 2022-01-03 10:43 | ADDICTION ---
Patient was approved for [facility]. He will be picked up on Thursday morning and transported.
[2022-01-03] MEDS: traZODone 100 MG Tablet PO (21:36)
[2022-01-04] VITALS (8 sets, daily range): BP systolic 98–112; BP diastolic 67–82; PULSE 101–122; RESP 12–18; TEMP 36.5–37.2; O2SAT 92–95
[2022-01-04] MEDS: LORazepam 1 MG Tablet 0.5 MG PO ×6 (00:37→23:09)
[2022-01-04] MEDS: Ibuprofen 600 MG Tablet PO (00:41)
[2022-01-04] MEDS: Ondansetron 8 MG Tablet PO (00:41)
[2022-01-04] MEDS: Dicyclomine 10 MG Capsule 20 MG PO ×2 (00:41→21:27)
[2022-01-04] MEDS: Gabapentin 300 MG Capsule PO (00:41)
[2022-01-04] MEDS: Sucralfate 1 GM Tablet PO ×2 (07:04→17:06)
[2022-01-04] MEDS: Thiamine Hydrochloride 100 MG Tablet PO (08:19)
[2022-01-04] MEDS: Folic Acid 1 MG Tablet PO (08:20)
--- NOTE | 2022-01-04 10:01 | PCM.PN.HOSP ---
Subjective Subjective Doing well, no issues overnight. Withdrawal symptoms are improving, CIWA scores of 7 Objective Data Objective Data Vital Signs: Vital Signs Temp Pulse Resp BP Pulse Ox O2 Del Method 98.2 F 108 H 14 100/75 92 Room Air 01/04/22 07:00 01/04/22 07:00 01/04/22 07:00 01/04/22 07:00 01/04/22 07:00 01/04/22 07:00 Oxygen Delivery Method Room Air Weight: 162 lb 7.691 oz Body Mass Index (BMI) 21.4 Intake & Output: Intake and Output for Last 24 Hours 01/03/22 01/04/22 01/05/22 03:59 03:59 03:59 Intake Total 3524 / 3524 1999 250 / 250 Balance 3524 / 3524 1999 250 / 250 Lab / Micro Data Result Diagrams: 01/02/22 00:59 01/02/22 04:14 Physical Exam Narrative General: Alert, Oriented x3, Cooperative, No apparent distress HEENT: Atraumatic, PERRLA, EOMI, Normocephalic Oral: Moist Mucosa Neck: Supple, No JVD Lungs: Clear to auscultation, Normal air movement, No rhonchi, No wheeze, No rales Cardiovascular: Regular rate, Regular Rhythm, Normal S1, Normal S2, No murmurs Abdomen: Soft, Non Tender, Non-Distended, No Hepato-splenomegaly Extremities: No edema, Capillary Refill Less than 3 Seconds Skin: No rashes, No breakdown Musculoskeletal: No Tenderness to Palpation of Joints or Extremities Neurological: Cranial nerves II-XII grossly intact, Motor Exam 5/5 strength throughout, Sensory exam intact to light touch and pain Psych/Mental Status: Normal Affect, Appropriate, anxious Assessment & Plan Assessment/Plan (1) Alcohol withdrawal: PLAN: Plan 1. Acute alcohol withdrawal/alcoholic liver disease/history of opiate abuse/tobacco abuse ? Continue with the alcohol withdrawal protocol ? Plan outpatient follow-up with 180 ? Given his chronic alcohol liver disease, will place him on Ativan instead of phenobarbital ? His LFTs are at baseline ? We will continue with his buprenorphine ? Discussed cessation of tobacco products 2. History of VTE secondary to protein C deficiency ? Stable ? Continue with Eliquis 3. GERD ? Stable ? Continue with his home medications DVT: Eliquis Charges/Coding Visit Charges Inpatient E&M: 12849 Subs Hosp L2
[2022-01-04] MEDS: APIXABAN 5 MG TABLET PO ×2 (10:56→21:27)
[2022-01-04] MEDS: Pantoprazole Sodium 40 MG Tablet PO (10:56)
[2022-01-04] MEDS: buprenorphine HCL 8 MG TAB.SUBL SL (11:06)
[2022-01-04] MEDS: NYSTATIN 500,000 UNIT/5 ML UDC 500000 UNIT PO ×3 (14:55→21:27)
[2022-01-04] MEDS: traZODone 100 MG Tablet PO (21:33)
[2022-01-04] MEDS: hydrOXYzine PAM 25 MG Capsule 50 MG PO (21:33)
[2022-01-05 04:00] VITALS: BP 100/65; PULSE 106; RESP 18; TEMP 36.9; O2SAT 95
[2022-01-05] MEDS: LORazepam 1 MG Tablet 0.5 MG PO ×4 (05:18→23:40)
[2022-01-05] MEDS: Sucralfate 1 GM Tablet PO ×2 (05:18→15:57)
[2022-01-05] MEDS: Folic Acid 1 MG Tablet PO (07:35)
[2022-01-05] MEDS: Thiamine Hydrochloride 100 MG Tablet PO (07:35)
--- NOTE | 2022-01-05 08:54 | PN.HOSP_ITS ---
Subjective Subjective Well, no issues overnight. Still has a little bit of symptoms from withdrawal but much better than he had been Objective Data Objective Data Vital Signs: Vital Signs Temp Pulse Resp BP Pulse Ox O2 Del Method 98.5 F 106 H 18 100/65 95 Room Air 01/05/22 04:00 01/05/22 04:00 01/05/22 04:00 01/05/22 04:00 01/05/22 04:00 01/05/22 07:50 Oxygen Delivery Method Room Air Weight: 162 lb 7.691 oz Body Mass Index (BMI) 21.4 Intake & Output: Intake and Output for Last 24 Hours 01/04/22 01/05/22 01/06/22 03:59 03:59 03:59 Intake Total 1999 500 / 500 Balance 1999 500 / 500 Lab / Micro Data Result Diagrams: 01/02/22 00:59 01/02/22 04:14 Physical Exam Narrative General: Alert, Oriented x3, Cooperative, No apparent distress HEENT: Atraumatic, PERRLA, EOMI, Normocephalic Oral: Moist Mucosa Neck: Supple, No JVD Lungs: Clear to auscultation, Normal air movement, No rhonchi, No wheeze, No ra les Cardiovascular: Regular rate, Regular Rhythm, Normal S1, Normal S2, No murmurs Abdomen: Soft, Non Tender, Non-Distended, No Hepato-splenomegaly Extremities: No edema, Capillary Refill Less than 3 Seconds Skin: No rashes, No breakdown Musculoskeletal: No Tenderness to Palpation of Joints or Extremities Neurological: Cranial nerves II-XII grossly intact, Motor Exam 5/5 strength throughout, Sensory exam intact to light touch and pain Psych/Mental Status: Normal Affect, Appropriate, anxious Assessment & Plan Assessment/Plan (1) Alcohol withdrawal: PLAN: Plan 1. Acute alcohol withdrawal/alcoholic liver disease/history of opiate abuse/tobacco abuse ? Continue with the alcohol withdrawal protocol ? Plan for inpatient rehab on Thursday ? Given his chronic alcohol liver disease, will place him on Ativan instead of phenobarbital ? His LFTs are at baseline ? We will continue with his buprenorphine ? Discussed cessation of tobacco products 2. History of VTE secondary to protein C deficiency ? Stable ? Continue with Eliquis 3. GERD ? Stable ? Continue with his home medications DVT: Eliquis Charges/Coding Visit Charges Inpatient E&M: 65281 Subs Hosp L2
[2022-01-05 10:01] VITALS: BP 103/64; PULSE 110; RESP 18; TEMP 37; O2SAT 98
[2022-01-05] MEDS: buprenorphine HCL 8 MG TAB.SUBL SL (10:56)
[2022-01-05] MEDS: NYSTATIN 500,000 UNIT/5 ML UDC 500000 UNIT PO ×4 (10:56→21:21)
[2022-01-05] MEDS: APIXABAN 5 MG TABLET PO ×2 (10:57→21:21)
[2022-01-05] MEDS: Pantoprazole Sodium 40 MG Tablet PO (10:58)
[2022-01-05 16:05] VITALS: BP 91/60; PULSE 107; RESP 18; TEMP 37.1; O2SAT 98
[2022-01-05 21:14] VITALS: BP 100/66; PULSE 109; RESP 16; TEMP 37; O2SAT 94
[2022-01-05] MEDS: Ibuprofen 600 MG Tablet PO (21:21)
[2022-01-05] MEDS: traZODone 100 MG Tablet PO (21:21)
[2022-01-05] MEDS: hydrOXYzine PAM 25 MG Capsule 50 MG PO (21:21)
[2022-01-05] MEDS: Dicyclomine 10 MG Capsule 20 MG PO (21:21)
[2022-01-06 03:10] VITALS: BP 95/64; PULSE 99; RESP 18; TEMP 36.9; O2SAT 98
[2022-01-06] MEDS: LORazepam 1 MG Tablet 0.5 MG PO (05:22)
[2022-01-06] MEDS: Dicyclomine 10 MG Capsule 20 MG PO ×2 (06:45→20:46)
[2022-01-06] MEDS: Sucralfate 1 GM Tablet PO ×2 (06:52→17:11)
--- NOTE | 2022-01-06 07:43 | PCM.PN.HOSP ---
Subjective Subjective Patient is a 41-year-old gentleman with history of chronic alcohol dependence presented with alcohol withdrawal Objective Data Objective Data Vital Signs: Vital Signs Temp Pulse Resp BP Pulse Ox O2 Del Method 98.4 F 99 18 95/64 98 Room Air 01/06/22 03:10 01/06/22 03:10 01/06/22 03:10 01/06/22 03:10 01/06/22 03:10 01/06/22 03:10 Oxygen Delivery Method Room Air Weight: 73.7 kg Body Mass Index (BMI) 21.4 Intake & Output: Intake and Output for Last 24 Hours 01/04/22 01/05/22 01/06/22 23:59 23:59 23:59 Intake Total 1400 / 2000 3500 / 4000 800 / 800 Balance 1400 / 1999 3500 / 4000 800 / 800 Lab / Micro Data Result Diagrams: 01/02/22 00:59 01/02/22 04:14 Physical Exam Narrative GENERAL: cooperative HEENT: Atraumatic; normocephalic EYES; Anicteric, Normal Conjunctiva NECK; supple, normal thyroid, RESPIRATORY: Diminished to auscultation CARDIOVASCULAR: Regular S1 S2, GI: soft, normoactive bowel sounds, : No Renal angle tenderness; EXTREMITIES: No edema, no clubbing, MUSCULOSKELETAL: no muscle wasting NEURO: Awake; no lateralizing signs. SKIN: No Rash PSYCH; Flat affect Assessment & Plan Assessment/Plan (1) Alcohol withdrawal: PLAN: Plan Patient is a 41-year-old gentleman with history of chronic alcohol dependence presented with alcohol withdrawal 1. Acute alcohol withdrawal ? Patient has been admitted to regular nursing floor managed with phenobarb taper 2. Chronic alcohol dependence ? Patient presented with alcohol withdrawal counseled on cessation 3. Tobacco dependence - Counseled on cessation, offered nicotine patch for tobacco cravings 4. History of VTE secondary to protein C deficiency ? Patient is on Eliquis did continue 5. Previous history of opioid dependence ? Patient is on bupropion?naloxone discontinued 6. GERD ? Patient is on PPI Charges/Coding Visit Charges Inpatient E&M: 83776 Subs Hosp L2
[2022-01-06 08:16] VITALS: O2SAT 95
[2022-01-06] MEDS: Thiamine Hydrochloride 100 MG Tablet PO (08:44)
[2022-01-06] MEDS: Folic Acid 1 MG Tablet PO (08:44)
[2022-01-06] MEDS: Pantoprazole Sodium 40 MG Tablet PO (08:44)
[2022-01-06 08:47] VITALS: BP 94/74; PULSE 103; RESP 18; TEMP 36.4; O2SAT 97
[2022-01-06] MEDS: APIXABAN 5 MG TABLET PO ×2 (10:51→20:46)
[2022-01-06] MEDS: NYSTATIN 500,000 UNIT/5 ML UDC 500000 UNIT PO ×4 (10:52→20:46)
[2022-01-06] MEDS: Buprenorphine HCl 2 MG TAB.SUBL 4 MG SL (11:35)
[2022-01-06 14:21] VITALS: BP 113/65; PULSE 105; RESP 18; TEMP 37.2; O2SAT 97
[2022-01-06 20:40] VITALS: BP 100/67; PULSE 91; RESP 18; TEMP 37.1; O2SAT 96
[2022-01-06] MEDS: traZODone 100 MG Tablet PO (20:46)
[2022-01-06] MEDS: hydrOXYzine PAM 25 MG Capsule 50 MG PO (20:46)
[2022-01-06] MEDS: Ibuprofen 600 MG Tablet PO (20:46)
[2022-01-07 05:00] VITALS: BP 95/64; PULSE 89; RESP 18; TEMP 36.7; O2SAT 95
[2022-01-07] MEDS: Sucralfate 1 GM Tablet PO (06:07)
[2022-01-07] MEDS: hydrOXYzine PAM 25 MG Capsule 50 MG PO (06:10)
[2022-01-07 07:30] VITALS: O2SAT 96
--- NOTE | 2022-01-07 08:38 | PCM.DC.SUM ---
Providers Date of Admission: 01/02/22 Date of Discharge: 01/07/22 Primary Care Physician: Dr. Luis Riley MD Reason For Visit: ACUTE ETOH WITHDRAWL Diagnosis Discharge Diagnosis (1) Alcohol withdrawal: Status: Acute Code(s): F10.939 - Alcohol use, unspecified with withdrawal, unspecified Plan Patient is a 41-year-old gentleman with history of chronic alcohol dependence presented with alcohol withdrawal 1. Acute alcohol withdrawal ? Patient has been admitted to regular nursing floor managed with phenobarb taper 2. Chronic alcohol dependence ? Patient presented with alcohol withdrawal counseled on cessation 3. Tobacco dependence - Counseled on cessation, offered nicotine patch for tobacco cravings 4. History of VTE secondary to protein C deficiency ? Patient is on Eliquis did continue 5. Previous history of opioid dependence ? Patient is on bupropion?naloxone discontinued 6. GERD ? Patient is on PPI Medications at Discharge Home Medications apixaban 5 mg tablet (Eliquis) 5 mg PO BID PE 11/15/21 omeprazole 40 mg capsule,delayed release 40 mg PO DAILY #30 caps 11/15/21 ondansetron 4 mg disintegrating tablet 4 mg PO Q8H PRN nausea and vomiting #20 tabs 11/15/21 promethazine 25 mg tablet 25 mg PO TID PRN nausea and vomiting #20 tabs 11/15/21 sucralfate 100 mg/mL oral suspension (Carafate) 10 ml PO BID PRN epigastric pain #400 mL 11/15/21 nicotine 14 mg/24 hr daily transdermal patch 14 mg transdermal DAILY 7 days #7 ea 11/22/21 Hospital Course Summary of Care Provided Minutes Spent on Discharge: 35 Physical Exam Narrative GENERAL: cooperative HEENT: Atraumatic; normocephalic EYES; Anicteric, Normal Conjunctiva NECK; supple, normal thyroid, RESPIRATORY: Diminished to auscultation CARDIOVASCULAR: Regular S1 S2, GI: soft, normoactive bowel sounds, : No Renal angle tenderness; EXTREMITIES: No edema, no clubbing, MUSCULOSKELETAL: no muscle wasting NEURO: Awake; no lateralizing signs. SKIN: No Rash PSYCH; Flat affect Weight / BMI Weight Weight: 73.7 kg Body Mass Index (BMI) 21.4 ABG / Lab / Microbiology Data Result Diagrams: 01/02/22 00:59 01/02/22 04:14 D/C Instructions Discharge Diet: No restrictions Discharge Activity: Return to Normal Activity Call your doctor if you observe: Fever of 101 or Higher, Shortness of breath, Fainting spells and Chest pain Meaningful Use Info Meaningful Use Diagnoses (Choose all that apply): None applicable Discharge Plan Admission Admit Date/Time: 01/02/22 02:18 Attending Provider: Tej Machuca Primary Care Provider: Luis Riley Consulting Providers: María Elena Steiner ; Daniel White Discharge Orders/Prescriptions Prescriptions: Continued Eliquis 5 mg tablet 5 mg PO BID Label Comments: TAKE 2 TABLETS BY MOUTH TWICE DAILY FOR THE FIRST WEEK, THEN TAKE 1 TABLET BY MOUTH TWICE DAILY AFTER promethazine 25 mg tablet 25 mg PO TID PRN (Reason: nausea and vomiting) Qty: 20 0RF ondansetron 4 mg tablet,disintegrating 4 mg PO Q8H PRN (Reason: nausea and vomiting) Qty: 20 0RF omeprazole 40 mg capsule,delayed release(DR/EC) 40 mg PO DAILY Qty: 30 0RF sucralfate [Carafate] 100 mg/mL suspension 10 ml PO BID PRN (Reason: epigastric pain) Qty: 400 0RF nicotine 14 mg/24 hr Patch 24 Hour 14 mg transdermal DAILY 7 Days Qty: 7 0RF Discontinued buprenorphine-naloxone 8-2 mg tablet, sublingual 1 tab SUBLINGUAL DAILY Label Comments: DISSOLVE ONE TABLET UNDER THE TONGUE DAILY Referrals / Follow Up: Luis Riley MD [Primary Care Provider] - Within 2 Weeks Disposition Disposition (needs filled in before D/C Order can be placed): Home, Self Care Charges/Coding Visit Charges Inpatient E&M: 63512 Disch Hosp
[2022-01-07] MEDS: Thiamine Hydrochloride 100 MG Tablet PO (10:09)
[2022-01-07] MEDS: Folic Acid 1 MG Tablet PO (10:09)
[2022-01-07] MEDS: Pantoprazole Sodium 40 MG Tablet PO (10:09)
[2022-01-07] MEDS: Ibuprofen 600 MG Tablet PO (10:09)
[2022-01-07] MEDS: Gabapentin 300 MG Capsule PO (10:09)
[2022-01-07] MEDS: Buprenorphine HCl 2 MG TAB.SUBL 4 MG SL (10:09)
[2022-01-07] MEDS: APIXABAN 5 MG TABLET PO (10:10)
[2022-01-07] MEDS: NYSTATIN 500,000 UNIT/5 ML UDC 500000 UNIT PO (10:10)
--- NOTE | 2022-01-07 10:41 | NURSING ---
pt left without d/c instructions. was told that his ride will be here at 12-1230p. pt instructed could get washed/dressed, but not to leave the floor. Staff saw pt getting on elevator.
== END 2022-01-07 10:36 | disposition home or self-care (01) | DRG 897 ==
LOC: ED 01:26 → ICU 02:39 → MS3 18:32
PROVIDERS: Admitting Provider Family Medicine; Emergency Provider Student in an Organized Health Care Education/Training Program; PCP Family Medicine; Visit Provider Internal Medicine
DX: F10.239 Alcohol dependence with withdrawal, unspecified (principal); B37.0 Candidal stomatitis; D68.59 Other primary thrombophilia; K70.9 Alcoholic liver disease, unspecified; F11.21 Opioid dependence, in remission; E83.42 Hypomagnesemia; K21.9 Gastro-esophageal reflux disease without esophagitis; E87.6 Hypokalemia; G43.709 Chronic migraine without aura, not intractable, without status migrainosus; F17.210 Nicotine dependence, cigarettes, uncomplicated; R73.9 Hyperglycemia, unspecified; Y90.2 Blood alcohol level of 40-59 mg/100 ml; Z79.01 Long term (current) use of anticoagulants; Z79.899 Other long term (current) drug therapy
CPT/HCPCS: 74176; 80053; 80307; 81001; 82077; 83036; 83690; 83735; 84100; 85025; 99284; 99406; J7120; A4216; J2405

== ENCOUNTER 2024-03-02 13:54 | Inpatient (IN) | payer BC, SELFPAY ==
[2024-03-02 13:56] VITALS: BP 130/85; PULSE 115; RESP 22; TEMP 36.6; O2SAT 98; BMI 22.5
--- NOTE | 2024-03-02 14:38 | EDS_ITS ---
HPI History of Present Illness Chief Complaint: ETOH Intox Informant: patient Narrative Narrative: Patient is a 43-year-old male with history of tachycardia, protein C deficiency and alcohol abuse presenting for alcohol detox. Patient states he has been drinking for years. He is presenting with his sponsor today as he states he is now finally ready to get sober. He notes his last drink was a little bit ago. He states that he drinks as much as he can and a mixture of beer and liquor. He states the last 24 hours he had a half of 1/5 of 94 proof liquor as well to 7 to 824 ounce beers. He notes that if he does not drink he does get tremulous but is not sure if he has a history of seizures/DTs. He does have a remote history of opioid abuse but does not use any illicit drugs he states in 15 years specifically opioids. He denies any other opioid use. He last was in inpatient detox here December 2021 but he states at that time he was more forced into and was not ready. He believes that he has liver problems and notes that he does have a chronic pain of his liver. Denies any acute change in this. Denies any swelling of his abdomen. Denies any black or blood in his stool but notes he does not usually look at it. He states he does get frequent diarrhea. He has some chronic nausea. Does not take any medicine on a daily basis. Does not feel like he is withdrawing at this time. No other complaints or concerns at this time. [facility] Medical History Alcoholic liver disease Protein C deficiency History of venous thromboembolism History of narcotic addiction Tobacco use Anxiety and depression Kidney stones Alcohol abuse Migraine Home Medications ?Medication ?Instructions ?Recorded ?Last Taken ?Type NK 03/02/24 Unknown History Allergy/AdvReac Type Severity Reaction Status Date / Time No Known Allergies Allergy Verified 03/02/24 13:55 Family History Mother Breast cancer Thyroid disorder Father Thyroid disorder Surgical History History of hand surgery History of surgery on left wrist History of hernia repair History of foot surgery History of cholecystectomy Necks Fusion Social History household members: significant other Smoking Status: Heavy Smoker (>10/day) alcohol intake: current alcohol intake frequency: 3 or more drinks per day details: Hard liquor, 10-15 shots daily. substance use type: former substance user seatbelt use: always do you feel safe at home: Yes ROS ROS ED Constitutional Constitutional ED: Denies chills or fever(s) Eyes Eyes: Denies change in vision Cardiovascular Cardiovascular: Denies chest pain Respiratory/Chest Respiratory/Chest: Denies cough or dyspnea Gastrointestinal Gastrointestinal: Reports abdominal pain, diarrhea and nausea; Denies vomiting Musculoskeletal Musculoskeletal: Denies arthralgias or myalgias Neurologic Neurologic: Reports paresthesias and other Details: chronic neuropathy of bilateral toes Psychiatric Psychiatric: Reports anxiety Hematologic/Lymphatic Hematologic/Lymphatic: Denies easy bleeding or easy bruising EXAM Physical Exam Const Vital Signs: 03/02/24 13:56 Temperature 98 F Temperature Source Temporal Pulse Rate 115 H Respiratory Rate 22 H Blood Pressure 130/85 H Blood Pressure Mean 100 Pulse Ox 98 Oxygen Delivery Method Room Air Positive well nourished and well developed General Appearance ED: well developed and NAD HEENT Reports moist mucous membranes Eyes PERRL Neck supple Chest Wall inspection of chest normal Resp normal respiratory effort and clear to auscultation bilaterally Cardio regular rate, regular rhythm and no murmurs GI soft to palpation and no masses GI Narrative: Negative Matos sign, no fluid wave appreciated Inspection: Negative for abdominal distention Palpation: tender RUQ Extremity Extremity Narrative: 2+ radial DP pulses present General Extremety ED: Negative for edema General Extremity: Negative for edema Neuro oriented x3 Sensorium / Orientation: alert Motor Exam: Negative for general weakness Psych mental status grossly normal Mood & Affect: anxious and tearful Skin General Skin Exam: Negative for jaundice Lesions: no lesions Rashes: no rashes MDM MDM MDM Narrative Medical decision making narrative: Patient evaluated for request of alcohol detox. On arrival patient is mildly tachycardic but vital signs otherwise normal and stable. He is anxious but well-appearing. Does complain of chronic upper abdominal pain and is given a dose of Zofran and Pepcid in the emergency room. Will obtain screening labs and reach out to hospitalist for admission for alcohol detox. At this time he does not have findings consistent with acute alcohol withdrawal/symptoms but I do not think he requires treatment emergently. He denies any other drug use. Does admit to smoking cigarettes (a pack per day). Discharge Plan Triage Chief Complaint: ETOH Intox ED Provider: Ewa Condon Dx/Rx/DC Orders Prescriptions: No Action NK Primary Care Provider: Luis Riley Referrals: Luis Riley MD [Primary Care Provider] - Print Language: [place]
--- NOTE | 2024-03-02 14:40 | ED.RN ---
Patient prompted for urine specimen and given a cup of water.
[2024-03-02] MEDS: Ondansetron 4 MG/2 ML Vial IV (14:47)
[2024-03-02 14:48] LABS: Absolute Lymphocyte Count 2.31 X10^3/uL (0.83-4.51); Absolute Neutrophil Count 4.7 X10^3/uL (2.0-7.7); Basophil# 0.04 X10^3/uL; Basophil% 0.5 % (0-1); Eosinophil# 0.04 X10^3/uL; Eosinophils% 0.5 % (0-5); Hematocrit 52.5 % (40-54); Lymphocyte # 2.31 X10^3/ul (0.83-4.51); Lymphocyte % 28.7 % (19-41); Mean Corpuscular Hgb 33.2 pg (27.0-32.0); Mean Corpuscular Volume 94.6 fL (80-94); Mean Platelet Vol. 10.3 fl (6.2-12.0); Monocyte# 0.92 X10^3/uL; Monocyte% 11.4 % (0-10); NRBC Flagged by Analyzer 0 % (0-5); Neutrophil # 4.71 X10^3/uL (2.7-7.7); Neutrophil % 58.5 % (47-70); Platelet Count 182 K/mm3 (150-450); RBC Distribution Width CV 15.9 % (11.6-14.6); RBC Distribution Width SD 55.9 fl (35.1-43.9); Red Blood Count 5.55 M/mm3 (4.6-6.2); White Blood Count 8.1 K/mm3 (4.4-11.0)
[2024-03-02 14:59] LABS: Hemoglobin 18.4 g/dL (13.0-16.5)
[2024-03-02 15:11] LABS: ALB/GLOB Ratio 0.9 RATIO (0.9-2.4); AST(SGOT) 108 U/L (15-37); Alanine Aminotransfer ALT/SGPT 60 U/L (16-61); Albumin, Serum 3.7 g/dL (3.2-5.0); Alkaline Phosphatase 123 U/L (45-117); Anion Gap 7 (5-15); BUN 2 mg/dL (7-18); BUN/Creat Ratio 2.4 RATIO (10-20); Calcium,Total 9.2 mg/dL (8.5-10.1); Chloride 101 mmol/L (98-107); Creatinine, Serum 0.85 mg/dL (0.70-1.30); EST Glomerular Filtration Rate 104 mL/min (>60); Est Glom Filt Rate - Afr Amer 126 mL/min (>60); Estimated Creatinine Clearance 122.68 ml/min; Globulin 4.3 g/dL (2.2-4.2); Glucose 98 mg/dL (74-106); Lipase 44 U/L (13-75); Potassium 3.4 mmol/L (3.5-5.1); Sodium Level 137 mmol/L (136-145)
[2024-03-02] MEDS: Famotidine 200 MG/20 ML MDV 20 MG in 0.9% Normal Saline (Pres. free 8 ML 300 MG IV (15:17)
[2024-03-02 15:55] VITALS: PULSE 98; RESP 18; TEMP 36.7; O2SAT 98
--- NOTE | 2024-03-02 15:58 | PCM.HP.STD ---
HPI - General General Date of Admission: 03/02/24 Date of Service: 03/02/24 Chief Complaint: EtOH Detoxification request HPI Narrative The patient is a 43 y/o M w/ PMHx: Anxiety and Depression, Hx Protein C deficiency w/ Hx VTE on eliquis per previous records however he notes has not been taking this and has declined to restart, Alcoholic liver disease following w/ Dr. Friend w/ chronically elevated Bilirubin/LFTs, Anxiety and Depression, Chronic back pain, Chronic migraines, GERD, Tobacco use, History of Opiate abuse previously on suboxone, EtOH abuse with frequent liquor intake with last detox discharge 01/07/2022 and notes that he maintained sobriety for several months following but unfortunately started a relationship with someone who also had substance abuse issues and started drinking heavily again with again at least 10-20 shots daily with last intake approximately 2 to 3 hours prior to ED arrival with now mild tremulousness and dyspepsia/nausea but no emesis requesting detox. Workup in the ED included T98, heart 115, BP 130/85, respiratory rate 22, 98% on room air, CBC with WC 8.1, he will 18.4, platelet 182 without marked shift, BMP with potassium 3.4, BUN/creatinine 2/0.5, total bilirubin 1.80, AST/ALT 108/60, alk phos 123, lipase 44, UDS negative, ethyl alcohol 246. [facility] Medical History Alcoholic liver disease Protein C deficiency History of venous thromboembolism History of narcotic addiction Tobacco use Anxiety and depression Kidney stones Alcohol abuse Migraine Home Medications ?Medication ?Instructions ?Recorded ?Last Taken ?Type NK 03/02/24 Unknown History Allergy/AdvReac Type Severity Reaction Status Date / Time No Known Allergies Allergy Verified 03/02/24 13:55 Family History Mother Breast cancer Thyroid disorder Father Thyroid disorder Surgical History History of hand surgery History of surgery on left wrist History of hernia repair History of foot surgery History of cholecystectomy Necks Fusion Social History (Updated 03/02/24 @ 19:[address] María Elena Steiner MD) household members: none Smoking Status: Heavy Smoker (>10/day) alcohol intake: current alcohol intake frequency: 3 or more drinks per day details: Hard liquor, 10-20 shots daily. substance use type: former substance user seatbelt use: always do you feel safe at home: Yes ROS ROS Narrative Admission Review of Systems: CONSTITUTIONAL: No weight loss, fever, chills, + weakness or fatigue. HEENT: Eyes: No visual loss, blurred vision, double vision or yellow sclerae. Ears, Nose, Throat: No hearing loss, sneezing, congestion, runny nose or sore throat. SKIN: No rash or itching, lesions, wounds. CARDIOVASCULAR: No chest pain, chest pressure or chest discomfort, palpitations, orthopnea, syncopal events, edema. RESPIRATORY: No shortness of breath, cough or sputum, wheezing, hemoptysis. GASTROINTESTINAL: + Mild anorexia, nausea without vomiting. No diarrhea, constipation, diarrhea, abdominal pain, melena, BRBPR. GENITOURINARY: No dysuria, frequency, urgency or retention. NEUROLOGICAL: + Mild tremors. No headache, dizziness, syncope, paralysis, ataxia, numbness or tingling in the extremities, focal weakness, change in bowel or bladder control, seizure. MUSCULOSKELETAL: + muscle, back pain, joint pain or stiffness. HEMATOLOGIC: No anemia, bleeding or bruising. LYMPHATICS: No enlarged nodes. No history of splenectomy. PSYCHIATRIC: No history of depression or anxiety. ENDOCRINOLOGIC: No reports of sweating, cold or heat intolerance. No polyuria or polydipsia. ALLERGIES: No history of asthma, hives, eczema or rhinitis. Vital Signs Vital Signs Vital Signs: 03/02/24 13:56 Temperature 98 F Temperature Source Temporal Pulse Rate 115 H Respiratory Rate 22 H Blood Pressure 130/85 H Blood Pressure Mean 100 Pulse Ox 98 Oxygen Delivery Method Room Air Weight Weight: 170 lb 10.205 oz Body Mass Index (BMI) 22.5 Physical Exam Narrative Physical Examination: General: Awake, alert, oriented x 3 and cooperative, seated upright in the ED bed, fatigued, tearful with discussions. Skin: Normal color, normal turgor, no icterus, no cyanosis except occasional abrasion, staged ecchymoses. HEENT: AT/NC, EOMI, PERRLA, mildly dry MM, no carotid bruits or JVD noted. Lungs: Diminished, greater bases, appropriate effort, no rales, ronchi or wheezing. Heart: Mildly tachycardic with regular rhythm; no gallop, rub audible. Abdomen: Soft, mild generalized discomfort with palpation with no rebound or guarding, nondistended, mildly hyperactive BS, + HM. Extremities: No cyanosis, no clubbing, no marked edema noted. Neurological: Patient awake, alert, oriented as noted, cognitive function intact; pupils equally reactive to light and accommodation, cranial nerves grossly normal, moving all 4 extremities, no focal deficits, strength mildly global decrease secondary to acute complaints, notes last drink ~ 2-3 hours prior, now mildly tremulous but not severe. Psychiatric: Affect appears fatigued, tearful about difficulty maintaining sobriety. Results Lab / Micro Data 03/02/24 14:40 03/02/24 14:40 Labs: Laboratory Results - last 24 hr 03/02/24 14:40: WBC 8.1, RBC 5.55, Hgb 18.4 H*, Hct 52.5, MCV 94.6 H, MCH 33.2 H, MCHC 35.0, RDW Std Deviation 55.9 H, RDW Coeff of Margaret 15.9 H, Plt Count 182, MPV 10.3, Immature Gran % (Auto) 0.400, Neut % (Auto) 58.5, Lymph % (Auto) 28.7, [place] % (Auto) 11.4 H, Eos % (Auto) 0.5, Baso % (Auto) 0.5, Absolute Neuts (auto) 4.7, Absolute Lymphs (auto) 2.31, Nucleated RBC % 0, Diff Path Review June, Sodium 137, Potassium 3.4 L, Chloride 101, Carbon Dioxide 28.0, Anion Gap 7, BUN 2 L, Creatinine 0.85, Estim Creat Clear Calc 122.68, Est GFR (MDRD) Af Amer 126, Est GFR (MDRD) Non-Af 104, BUN/Creatinine Ratio 2.4 L, Glucose 98, Calcium 9.2, Total Bilirubin 1.80 H, AST 108 H, ALT 60, Alkaline Phosphatase 123 H, Total Protein 8.0, Albumin 3.7, Globulin 4.3 H, Albumin/Globulin Ratio 0.9, Lipase 44, Ethyl Alcohol 246.0 03/02/24 15:30: Ur Drug Screen Comment Assessment & Plan Assessment/Plan (1) Desire for detoxification: PLAN: Plan The patient is a 43 y/o M w/ PMHx: Anxiety and Depression, Hx Protein C deficiency w/ Hx VTE on eliquis per previous records however he notes has not been taking this and has declined to restart, Alcoholic liver disease following w/ Friend w/ chronically elevated Bilirubin/LFTs, Anxiety and Depression, Chronic back pain, Chronic migraines, GERD, Tobacco use, History of Opiate abuse previously on suboxone, EtOH abuse with frequent liquor intake with last detox discharge 01/07/2022 and notes that he maintained sobriety for several months following but unfortunately started a relationship with someone who also had substance abuse issues and started drinking heavily again with again at least 10-20 shots daily with last intake approximately 2 to 3 hours prior to ED arrival with now mild tremulousness and dyspepsia/nausea but no emesis requesting detox. #1. Acute Abuse with Impending EtOH Withdrawal complicated by underlying alcoholic liver disease with chronic hyperbilirubinemia/transaminitis: Admission CMP with T. bili 1.0, AST/LT 108/60, alk phos 123, given hypokalemia we will repeat CMP in AM. Will admit to [facility], routine labs obtained in the ED upon presentation as noted. Given interest in sobriety, will initiate and continue on protocol with taper course of Ativan given liver dysfunction to be cautious which is what he been treated during his previous admission with successfully, scheduled gabapentin for seizure prophylaxis, as needed Catapres, Bentyl, Vistaril, IV fluids, IV antiemetics, Tylenol as needed for pain. Will consult Case management for assistance for transition to next level of rehabilitation care. Magnesium and phosphorus levels requested. Maintain on CIWA protocol concurrently. #2. Hypokalemia: Admission K+ 3.4, magnesium level requested, supplementation given, repeat level in AM. #3. History of VTE with protein C deficiency: Patient with history of DVT, PE, patient previously been on Eliquis, had discussed restarting given his history but he is declining. #4. GERD: Given abdominal complaints will maintain on PPI and sucralfate. #5. Tobacco Abuse: Encouraged cessation, inpatient consultation per RT, NR if desired. #6. History of opiate abuse: UDS negative, previously on chronic Suboxone therapy, clarifying if this is ongoing, encourage continued clean status. #7. Anxiety and depression: Not on regimen, given this is heavily contributing to his substance abuse history would benefit from counseling and potentially medication. Case management will need to consult as noted. #8. DVT prophylaxis: Patient is declining resumption of Eliquis, also declining any chemoprophylaxis or SCDs, encourage ambulation. Charges/Coding Visit Charges Inpatient E&M: 10305 Init Hosp L3
[2024-03-02 16:08] LABS: Amphetamine Urine VISTA NEGATIVE (<1000 ng/mL); Barbiturate Urine VISTA NEGATIVE (< 200 ng/mL); Benzodiazepine Urine VISTA NEGATIVE (< 200 ng/mL); Cocaine Urine VISTA NEGATIVE (< 300 ng/mL); Ecstacy Urine VISTA NEGATIVE (< 500 ng/mL); Methadone Urine VISTA NEGATIVE (< 300 ng/mL); PCP Urine VISTA NEGATIVE (< 25 ng/mL); THC Urine VISTA NEGATIVE (< 50 ng/mL); Vista UDS pH Range 7
[2024-03-02 16:33] VITALS: PULSE 100; RESP 18; BMI 21.2
[2024-03-02 16:34] VITALS: BP 112/77; PULSE 100; RESP 18; TEMP 36.6; O2SAT 100
[2024-03-02 16:48] LABS: Magnesium 1.8 mg/dL (1.6-2.6)
[2024-03-02 17:09] VITALS: O2SAT 97
[2024-03-02] MEDS: Dicyclomine 10 MG Capsule 20 MG PO (17:21)
[2024-03-02] MEDS: hydrOXYzine PAM 25 MG Capsule 50 MG PO (17:21)
[2024-03-02] MEDS: Lactated Ringers 1,000 ML 125 ML IV (17:22)
[2024-03-02] MEDS: LORazepam 1 MG Tablet PO ×2 (17:22→20:22)
[2024-03-02] MEDS: Pantoprazole Sodium 40 MG Tablet PO (17:28)
[2024-03-02 20:07] VITALS: BP 128/74; PULSE 111; RESP 18; TEMP 36.4; O2SAT 100
[2024-03-02] MEDS: Ibuprofen 600 MG Tablet PO (20:20)
[2024-03-02] MEDS: Potassium Phosphate 21 MM in 0.9% Normal Saline (250mL Bag) 250 ML 84 MM IV (20:20)
[2024-03-03] VITALS (7 sets, daily range): BP systolic 114–120; BP diastolic 74–87; PULSE 75–103; RESP 16–18; TEMP 36.3–37.2; O2SAT 94–98
[2024-03-03] MEDS: hydrOXYzine PAM 25 MG Capsule 50 MG PO ×3 (00:48→20:20)
[2024-03-03] MEDS: Ondansetron 8 MG Tablet PO ×2 (00:49→20:21)
[2024-03-03] MEDS: LORazepam 1 MG Tablet PO ×6 (00:49→20:21)
[2024-03-03] MEDS: Sucralfate 1 GM Tablet PO ×5 (00:49→20:21)
[2024-03-03 07:28] LABS: ALB/GLOB Ratio 0.9 RATIO (0.9-2.4); AST(SGOT) 64 U/L (15-37); Alanine Aminotransfer ALT/SGPT 44 U/L (16-61); Albumin, Serum 2.9 g/dL (3.2-5.0); Alkaline Phosphatase 104 U/L (45-117); Anion Gap 6 (5-15); BUN 6 mg/dL (7-18); BUN/Creat Ratio 6.5 RATIO (10-20); Calcium,Total 8.4 mg/dL (8.5-10.1); Chloride 102 mmol/L (98-107); Creatinine, Serum 0.93 mg/dL (0.70-1.30); EST Glomerular Filtration Rate 94 mL/min (>60); Est Glom Filt Rate - Afr Amer 114 mL/min (>60); Estimated Creatinine Clearance 105.53 ml/min; Globulin 3.3 g/dL (2.2-4.2); Glucose 104 mg/dL (74-106); Phosphorus 3.9 mg/dL (2.5-4.9); Potassium 3.6 mmol/L (3.5-5.1); Protein, Total 6.2 g/dL (6.4-8.2); Sodium Level 138 mmol/L (136-145)
[2024-03-03] MEDS: Thiamine Hydrochloride 100 MG Tablet PO (08:15)
[2024-03-03] MEDS: Folic Acid 1 MG Tablet PO (08:15)
[2024-03-03] MEDS: Pantoprazole Sodium 40 MG Tablet PO (08:16)
--- NOTE | 2024-03-03 08:24 | PCM.PN.HOSP ---
Reason for Visit Reason for Visit: Patient is a 43-year-old gentleman with history of chronic alcohol dependence admitted with intoxication at significant risk for alcohol withdrawal admitted to regular nursing floor for further management Objective Data Objective Data Vital Signs: Vital Signs Temp Pulse Resp BP Pulse Ox O2 Del Method 97.7 F L 82 16 118/87 H 97 Room Air 03/03/24 08:12 03/03/24 08:12 03/03/24 08:12 03/03/24 08:12 03/03/24 08:12 03/03/24 08:12 Oxygen Delivery Method Room Air Weight: 72.847 kg Body Mass Index (BMI) 21.2 Intake & Output: Intake and Output for Last 24 Hours 03/01/24 03/02/24 03/03/24 23:59 23:59 23:59 Intake Total 310 / 310 2757 / 2757 Balance 310 / 310 2757 / 2757 Lab / Micro Data 03/02/24 14:40 03/03/24 06:28 Labs: Laboratory Results - last 24 hr 03/02/24 14:40: WBC 8.1, RBC 5.55, Hgb 18.4 H*, Hct 52.5, MCV 94.6 H, MCH 33.2 H, MCHC 35.0, RDW Std Deviation 55.9 H, RDW Coeff of Margaret 15.9 H, Plt Count 182, MPV 10.3, Immature Gran % (Auto) 0.400, Neut % (Auto) 58.5, Lymph % (Auto) 28.7, [place]rick % (Auto) 11.4 H, Eos % (Auto) 0.5, Baso % (Auto) 0.5, Absolute Neuts (auto) 4.7, Absolute Lymphs (auto) 2.31, Nucleated RBC % 0, Diff Path Review June, Sodium 137, Potassium 3.4 L, Chloride 101, Carbon Dioxide 28.0, Anion Gap 7, BUN 2 L, Creatinine 0.85, Estim Creat Clear Calc 122.68, Est GFR (MDRD) Af Amer 126, Est GFR (MDRD) Non-Af 104, BUN/Creatinine Ratio 2.4 L, Glucose 98, Calcium 9.2, Phosphorus 2.0 L, Magnesium 1.8, Total Bilirubin 1.80 H, AST 108 H, ALT 60, Alkaline Phosphatase 123 H, Total Protein 8.0, Albumin 3.7, Globulin 4.3 H, Albumin/Globulin Ratio 0.9, Lipase 44, Ethyl Alcohol 246.0 03/02/24 15:30: Urine Opiates Screen NEGATIVE, Urine Methadone Screen NEGATIVE, Ur Barbiturates Screen NEGATIVE, Ur Phencyclidine Scrn NEGATIVE, Ur Amphetamines Screen NEGATIVE, MDMA (Ecstasy) Screen NEGATIVE, U Benzodiazepines Scrn NEGATIVE, Urine Cocaine Screen NEGATIVE, U Cannabinoids Screen NEGATIVE, Ur Drug Screen Comment 03/03/24 06:28: Sodium 138, Potassium 3.6, Chloride 102, Carbon Dioxide 30.0, Anion Gap 6, BUN 6 L, Creatinine 0.93, Estim Creat Clear Calc 105.53, Est GFR (MDRD) Af Amer 114, Est GFR (MDRD) Non-Af 94, BUN/Creatinine Ratio 6.5 L, Glucose 104, Calcium 8.4 L, Phosphorus 3.9, Total Bilirubin 2.00 H, AST 64 H, ALT 44, Alkaline Phosphatase 104, Total Protein 6.2 L, Albumin 2.9 L, Globulin 3.3, Albumin/Globulin Ratio 0.9 Physical Exam Narrative GENERAL: cooperative HEENT: Atraumatic; normocephalic EYES; Anicteric, Normal Conjunctiva NECK; supple, normal thyroid, RESPIRATORY: Diminished to auscultation CARDIOVASCULAR: Regular S1 S2, GI: soft, normoactive bowel sounds, : No Renal angle tenderness; EXTREMITIES: No edema, no clubbing, MUSCULOSKELETAL: no muscle wasting NEURO: Awake; no lateralizing signs. SKIN: No Rash PSYCH; Flat affect Assessment & Plan Assessment/Plan (1) Desire for detoxification: PLAN: Plan Patient is a 43-year-old gentleman with history of chronic alcohol dependence admitted with intoxication at significant risk for alcohol withdrawal admitted to regular nursing floor for further management 1. Acute alcohol withdrawal - Patient has been admitted for treatment with phenobarb taper in addition to adjuvant medications including gabapentin, Bentyl, hydroxyzine and clonidine as needed for alcohol withdrawal symptoms. Patient was also placed on thiamine and folic acid; Consultation placed to [facility] counseling services 2. Hypokalemia -Corrected per protocol 3. Tobacco dependence - Counseled on cessation, offered nicotine patch for tobacco cravings 4. History of VTE secondary to protein C deficiency ? Patient is on Eliquis did continue 5. Previous history of opioid dependence ? Patient is on bupropion?naloxone discontinued 6. GERD ? Patient is on PPI 7. Hypophosphatemia ? Corrected per protocol 8. Polycythemia ? Suspected to be secondary to severe dehydration patient started on IV fluids repeat labs ordered for a.m. 9. DVT prophylaxis ? Already anticoagulated with apixaban Time spent in the patient's overall evaluation,decision-making process, review of diagnostic data, adjustment of management, discussion with other providers, nursing nursing and ancillary staff involved in patient's care documentation,50 Minutes Charges/Coding Visit Charges Inpatient E&M: 52982 [facility] L3
[2024-03-03] MEDS: Na Biphos/Potassium Phosphate PACKET 1 PACKET PO (08:47)
[2024-03-03 10:02] LABS: Pathologist Review Reviewed
--- NOTE | 2024-03-03 11:30 | ADDICTION ---
This report writer met with PT to conduct ASAM, MSE, AUDIT, DUDIT assessments and to plan for d/c. PT A+Ox4 and participated actively. All assessments completed. PT plans to follow-up with outpatient treatment services. Addiction therapist suggested inpatient tx due to his level of use and hx. pt previously (in 2021) went to [facility], however he did not complete the program. PT did not indicate a need for transportation post d/c from [facility].
--- NOTE | 2024-03-03 11:30 | NURSING ---
houseperson documentation reviewed.
[2024-03-03] MEDS: Ibuprofen 600 MG Tablet PO (15:53)
[2024-03-03] MEDS: Acetaminophen 325 MG Tablet 650 MG PO (20:20)
[2024-03-04] MEDS: Na Biphos/Potassium Phosphate PACKET 1 PACKET PO ×3 (01:00→20:00)
[2024-03-04] MEDS: LORazepam 1 MG Tablet PO ×6 (01:00→19:59)
[2024-03-04 05:02] VITALS: BP 104/72; PULSE 86; RESP 18; TEMP 36.4; O2SAT 96
[2024-03-04] MEDS: Sucralfate 1 GM Tablet PO ×4 (05:06→20:00)
[2024-03-04 06:48] LABS: Absolute Lymphocyte Count 1.94 X10^3/uL (0.83-4.51); Absolute Neutrophil Count 3.5 X10^3/uL (2.0-7.7); Basophil# 0.03 X10^3/uL; Basophil% 0.5 % (0-1); Eosinophil# 0.09 X10^3/uL; Eosinophils% 1.5 % (0-5); Hematocrit 45.3 % (40-54); Hemoglobin 15.8 g/dL (13.0-16.5); Lymphocyte # 1.94 X10^3/ul (0.83-4.51); Lymphocyte % 32.2 % (19-41); Mean Corp Hgb Conc 34.9 g/dL (32-36); Mean Corpuscular Hgb 33.7 pg (27.0-32.0); Mean Corpuscular Volume 96.6 fL (80-94); Mean Platelet Vol. 10.4 fl (6.2-12.0); Monocyte# 0.43 X10^3/uL; Monocyte% 7.1 % (0-10); NRBC Flagged by Analyzer 0 % (0-5); Neutrophil # 3.52 X10^3/uL (2.7-7.7); Neutrophil % 58.4 % (47-70); Platelet Count 120 K/mm3 (150-450); RBC Distribution Width CV 15.6 % (11.6-14.6); RBC Distribution Width SD 55.3 fl (35.1-43.9); Red Blood Count 4.69 M/mm3 (4.6-6.2)
[2024-03-04 07:12] LABS: ALB/GLOB Ratio 0.8 RATIO (0.9-2.4); AST(SGOT) 83 U/L (15-37); Alanine Aminotransfer ALT/SGPT 50 U/L (16-61); Albumin, Serum 2.8 g/dL (3.2-5.0); Alkaline Phosphatase 98 U/L (45-117); Anion Gap 4 (5-15); BUN 9 mg/dL (7-18); BUN/Creat Ratio 10.5 RATIO (10-20); Calcium,Total 8.4 mg/dL (8.5-10.1); Chloride 105 mmol/L (98-107); Creatinine, Serum 0.86 mg/dL (0.70-1.30); EST Glomerular Filtration Rate 103 mL/min (>60); Est Glom Filt Rate - Afr Amer 125 mL/min (>60); Estimated Creatinine Clearance 114.12 ml/min; Globulin 3.3 g/dL (2.2-4.2); Glucose 93 mg/dL (74-106); Magnesium 1.6 mg/dL (1.6-2.6); Phosphorus 3.3 mg/dL (2.5-4.9); Potassium 3.7 mmol/L (3.5-5.1); Protein, Total 6.1 g/dL (6.4-8.2); Sodium Level 138 mmol/L (136-145)
--- NOTE | 2024-03-04 07:28 | PCM.PN.HOSP ---
Subjective Subjective Patient seen still has tremors at rest. Relative polycythemia improving with IV hydration. Objective Data Objective Data Vital Signs: Vital Signs Temp Pulse Resp BP Pulse Ox O2 Del Method 97.6 F L 86 18 104/72 96 Room Air 03/04/24 05:02 03/04/24 05:02 03/04/24 05:02 03/04/24 05:02 03/04/24 05:02 03/04/24 05:02 Oxygen Delivery Method Room Air Weight: 72.847 kg Body Mass Index (BMI) 21.2 Intake & Output: Intake and Output for Last 24 Hours 03/02/24 03/03/24 03/04/24 23:59 23:59 23:59 Intake Total 310 / 310 2757 / 2757 1400 / 1400 Balance 310 / 310 2757 / 2757 1400 / 1400 Lab / Micro Data 03/04/24 06:26 03/04/24 06:26 Labs: Laboratory Results - last 24 hr 03/02/24 14:40: Diff Path Review Reviewed 03/04/24 06:26: WBC 6.0, RBC 4.69, Hgb 15.8, Hct 45.3, MCV 96.6 H, MCH 33.7 H, MCHC 34.9, RDW Std Deviation 55.3 H, RDW Coeff of Margaret 15.6 H, Plt Count 120 L, MPV 10.4, Immature Gran % (Auto) 0.300, Neut % (Auto) 58.4, Lymph % (Auto) 32.2, [place] % (Auto) 7.1, Eos % (Auto) 1.5, Baso % (Auto) 0.5, Absolute Neuts (auto) 3.5, Absolute Lymphs (auto) 1.94, Nucleated RBC % 0, Sodium 138, Potassium 3.7, Chloride 105, Carbon Dioxide 29.0, Anion Gap 4 L, BUN 9, Creatinine 0.86, Estim Creat Clear Calc 114.12, Est GFR (MDRD) Af Amer 125, Est GFR (MDRD) Non-Af 103, BUN/Creatinine Ratio 10.5, Glucose 93, Calcium 8.4 L, Phosphorus 3.3, Magnesium 1.6, Total Bilirubin 1.80 H, AST 83 H, ALT 50, Alkaline Phosphatase 98, Total Protein 6.1 L, Albumin 2.8 L, Globulin 3.3, Albumin/Globulin Ratio 0.8 L Physical Exam Narrative GENERAL: cooperative HEENT: Atraumatic; normocephalic EYES; Anicteric, Normal Conjunctiva NECK; supple, normal thyroid, RESPIRATORY: Diminished to auscultation CARDIOVASCULAR: Regular S1 S2, GI: soft, normoactive bowel sounds, : No Renal angle tenderness; EXTREMITIES: No edema, no clubbing, MUSCULOSKELETAL: no muscle wasting NEURO: Awake; no lateralizing signs. SKIN: No Rash PSYCH; Flat affect Assessment & Plan Assessment/Plan (1) Desire for detoxification: PLAN: Plan Patient is a 43-year-old gentleman with history of chronic alcohol dependence admitted with intoxication at significant risk for alcohol withdrawal admitted to regular nursing floor for further management 1. Acute alcohol withdrawal - Patient has been admitted for treatment with phenobarb taper in addition to adjuvant medications including gabapentin, Bentyl, hydroxyzine and clonidine as needed for alcohol withdrawal symptoms. Patient was also placed on thiamine and folic acid; Consultation placed to 180 counseling services ? 03/04/2024; patient has tolerated the phenobarb taper well so far patient still remains tremulous 2. Hypokalemia -Corrected per protocol 3. Tobacco dependence - Counseled on cessation, offered nicotine patch for tobacco cravings 4. History of VTE secondary to protein C deficiency ? Patient is on Eliquis did continue 5. Previous history of opioid dependence ? Patient is on bupropion?naloxone discontinued 6. GERD ? Patient is on PPI 7. Hypophosphatemia ? Corrected per protocol 8. Polycythemia ? Suspected to be secondary to severe dehydration patient started on IV fluids repeat labs ordered for a.m. ? 03/04/2024; polycythemia improved with rehydration 9. DVT prophylaxis ? Already anticoagulated with apixaban Time spent in the patient's overall evaluation,decision-making process, review of diagnostic data, adjustment of management, discussion with other providers, nursing nursing and ancillary staff involved in patient's care documentation, 40 Minutes Charges/Coding Visit Charges Inpatient E&M: 80357 Subs Hosp L2
[2024-03-04] MEDS: Folic Acid 1 MG Tablet PO (08:53)
[2024-03-04] MEDS: Pantoprazole Sodium 40 MG Tablet PO (08:53)
[2024-03-04] MEDS: Thiamine Hydrochloride 100 MG Tablet PO (08:53)
[2024-03-04 09:59] VITALS: BP 115/76; PULSE 88; RESP 18; TEMP 36.7; O2SAT 98
--- NOTE | 2024-03-04 15:55 | CASEMGMT ---
Received tc from Lauren in registration requesting GREG REESE see if pt has insurance card in room and to obtain ID # if so. GREG REESE into pt room, pt states that he does not have the insurance card that he had to pick it up after the of the year. He states that he does have insurance from [employer] and he has been employed for 90 days. He does not know his ID # nor does he have anyone at home who would know this information. Updated Lauren of this.
--- NOTE | 2024-03-04 16:21 | CHAPLAIN ---
Type of Pastoral Visit _x__ Initial Visit ___ Follow-up Visit ___ On-call Visit ___ General Patient Visit ___ Spiritual Assessment ___ Family Conference ___ Bereavement ___ Rapid Response ___ Code Blue ___ Other (describe below) Pastoral Care Referral From _x__ Patient ___ Family ___ Nurse ___ Physician ___ Supervisor [facility] ___ Transaction Advisory Services Manager ___ Other (describe below) Sacrament/Intervention _x__ Active listening ___ Anointing ___ Restorationist ___ Bereavement ___ Communion _x__ Natacha exploration ___ _x__ Life review _x__ Prayer ___ Reconciliation ___ Sacrament of Sick _x__ Supportive presence ___ Wedding ___ Other (describe below) Pastoral Comments patient states that he is having a hard time sitting alone in the room all day and is considering leaving early; encouraged the patient to continue his process which he says I know I need too and I want to be done with this; pt says that he would like to have a cigarette to calm himself but that is not permitted; pt states that he is really missing his children and his dog; offered to sit with the patient and give him someone to talk with and to pass the time and he agrees; pt gives much life review and indicates that he wants to be here for my kids of whom he has three; pt explains that he overcame opiate addiction but has gone to alcohol and 'can't seem to beat it'; pt admits to being isolated from people a lot but does have a few friends that are sober and helpful to him; pt also shares that his brother was murdered at age 21 and 'that sent me into a downward spiral'; time is given for some grief work; pt states that he has never been one to go to caodaism or understand God as I have many questions about all that; explored some basics of natacha and the patient said I am open to that, in fact anything that can help me; pt was welcoming of a prayer and became tearful; pt says that he would like more visits from this core baker although he may be discharged before this core baker is back to work next week; affirmed patient that he has started a good process and that he can continue it for the good of himself and others
[2024-03-04 18:25] VITALS: BP 115/67; PULSE 93; RESP 16; TEMP 36.6; O2SAT 98
[2024-03-04 19:57] VITALS: BP 108/80; PULSE 106; RESP 16; TEMP 36.8; O2SAT 96
[2024-03-04] MEDS: Gabapentin 300 MG Capsule PO (19:59)
[2024-03-04] MEDS: traZODone 100 MG Tablet PO (19:59)
[2024-03-04 20:07] VITALS: PULSE 105
[2024-03-05] MEDS: LORazepam 1 MG Tablet PO ×2 (02:02→06:34)
[2024-03-05] MEDS: hydrOXYzine PAM 25 MG Capsule 50 MG PO (02:11)
[2024-03-05 02:12] VITALS: BP 102/75; PULSE 101; RESP 16; TEMP 36.6; O2SAT 94
[2024-03-05] MEDS: Sucralfate 1 GM Tablet PO (06:34)
[2024-03-05 06:35] VITALS: BP 101/73; PULSE 87; RESP 16; TEMP 36.6; O2SAT 94
[2024-03-05] MEDS: Pantoprazole Sodium 40 MG Tablet PO (07:45)
[2024-03-05] MEDS: Folic Acid 1 MG Tablet PO (07:45)
[2024-03-05] MEDS: Thiamine Hydrochloride 100 MG Tablet PO (07:45)
[2024-03-05] MEDS: Na Biphos/Potassium Phosphate PACKET 1 PACKET PO (07:46)
[2024-03-05 08:41] VITALS: BP 100/76; PULSE 96; RESP 16; TEMP 36.3; O2SAT 94
--- NOTE | 2024-03-05 10:13 | PCM.DC.SUM ---
Providers Date of Admission: 03/02/24 Date of Discharge: 03/05/24 Primary Care Physician: Dr. Luis Riley MD Reason For Visit: ALCOHOL DETOX Diagnosis Discharge Diagnosis (1) Desire for detoxification: Status: Acute Plan Patient is a 43-year-old gentleman with history of chronic alcohol dependence admitted with intoxication at significant risk for alcohol withdrawal admitted to regular nursing floor for further management 1. Acute alcohol withdrawal - Patient has been admitted for treatment with phenobarb taper in addition to adjuvant medications including gabapentin, Bentyl, hydroxyzine and clonidine as needed for alcohol withdrawal symptoms. Patient was also placed on thiamine and folic acid; Consultation placed to 180 counseling services ? 03/04/2024; patient has tolerated the phenobarb taper well so far patient still remains tremulous ? 03/05/2024; patient symptoms significantly improved. Plan for patient to be discharged home to continue with outpatient treatment services 2. Hypokalemia -Corrected per protocol 3. Tobacco dependence - Counseled on cessation, offered nicotine patch for tobacco cravings 4. History of VTE secondary to protein C deficiency ? Patient is on Eliquis did continue 5. Previous history of opioid dependence ? Patient is on bupropion?naloxone discontinued 6. GERD ? Patient is on PPI 7. Hypophosphatemia ? Corrected per protocol 8. Polycythemia ? Suspected to be secondary to severe dehydration patient started on IV fluids repeat labs ordered for a.m. ? 03/04/2024; polycythemia improved with rehydration 9. DVT prophylaxis ? Already anticoagulated with apixaban Time spent in the patient's overall evaluation,decision-making process, review of diagnostic data, adjustment of management, discussion with other providers, nursing nursing and ancillary staff involved in patient's care documentation, 35 Minutes Medications at Discharge Home Medications NK 03/02/24 Physical Exam Narrative GENERAL: cooperative HEENT: Atraumatic; normocephalic EYES; Anicteric, Normal Conjunctiva NECK; supple, normal thyroid, RESPIRATORY: Diminished to auscultation CARDIOVASCULAR: Regular S1 S2, GI: soft, normoactive bowel sounds, : No Renal angle tenderness; EXTREMITIES: No edema, no clubbing, MUSCULOSKELETAL: no muscle wasting NEURO: Awake; no lateralizing signs. SKIN: No Rash PSYCH; Flat affect Weight / BMI Weight Weight: 72.847 kg Body Mass Index (BMI) 21.2 ABG / Lab / Microbiology Data 03/04/24 06:26 03/04/24 06:26 D/C Instructions Discharge Diet: No restrictions Discharge Activity: Return to Normal Activity Call your doctor if you observe: Fever of 101 or Higher, Shortness of breath, Fainting spells and Chest pain DC O2, CPAP, BIPAP Needs Home O2 Discharge instructions: No Meaningful Use Info Meaningful Use Meaningful Use Diagnoses (Choose all that apply): None applicable Ischemic Stroke Statin Dosing Therapy Reference: STATIN DOSE THERAPY REFERENCE: * Patients > 75 years receive moderate or high dose statin therapy. * Patients 75 years or YOUNGER should receive HIGH intensity statin dose unless contraindicated. You will be required to document reason for non-treatment if statin daily dose does not meet guidelines. HIGH DOSE STATIN THERAPY DAILY Atorvastatin > than or = to 40 mg Rosuvastatin > than or = to 20 mg Amlodipine + Atorvastatin > than or = to 2.5/40 mg Ezetimibe + Simvastatin 10/80 mg Simvastatin 80mg Discharge Plan Admission Admit Date/Time: 03/02/24 15:58 Attending Provider: Tej Machuca Primary Care Provider: Luis Riley Consulting Providers: María Elena Steiner Discharge Orders/Prescriptions Prescriptions: Continued NK Referrals / Follow Up: Luis Riley MD [Primary Care Provider] - Within 1 Week Disposition Disposition (needs filled in before D/C Order can be placed): Home, Self Care Charges/Coding Visit Charges Inpatient E&M: 50723 Disch Hosp >30min
== END 2024-03-05 10:55 | disposition home or self-care (01) | DRG 897 ==
LOC: ED 14:40 → MS3 16:20
PROVIDERS: Admitting Provider Family Medicine; Emergency Provider Emergency Medicine; PCP Family Medicine; Visit Provider Internal Medicine
DX: F10.239 Alcohol dependence with withdrawal, unspecified (principal); D75.1 Secondary polycythemia; E87.6 Hypokalemia; F17.210 Nicotine dependence, cigarettes, uncomplicated; Z79.01 Long term (current) use of anticoagulants; Y90.8 Blood alcohol level of 240 mg/100 ml or more; Z86.718 Personal history of other venous thrombosis and embolism; Z86.711 Personal history of pulmonary embolism
CPT/HCPCS: 36415; 80053; 80307; 82077; 83690; 83735; 84100; 85025; 99284; A4216; J2405

== ENCOUNTER 2024-04-12 12:34 | Emergency (ER) | payer SELFPAY ==
[2024-04-12] VITALS (11 sets, daily range): BP systolic 93–119; BP diastolic 58–84; PULSE 72–99; RESP 14–19; TEMP 36.6–36.8; O2SAT 94–100; BMI 22.4
[2024-04-12 13:18] LABS: Absolute Lymphocyte Count 2.19 X10^3/uL (0.83-4.51); Absolute Neutrophil Count 5.6 X10^3/uL (2.0-7.7); Basophil# 0.03 X10^3/uL; Basophil% 0.3 % (0-1); Eosinophil# 0.06 X10^3/uL; Eosinophils% 0.7 % (0-5); Hematocrit 46.4 % (40-54); Hemoglobin 15.8 g/dL (13.0-16.5); Lymphocyte # 2.19 X10^3/ul (0.83-4.51); Lymphocyte % 24.6 % (19-41); Mean Corp Hgb Conc 34.1 g/dL (32-36); Mean Corpuscular Hgb 33.5 pg (27.0-32.0); Mean Corpuscular Volume 98.3 fL (80-94); Mean Platelet Vol. 10.8 fl (6.2-12.0); Monocyte# 0.99 X10^3/uL; Monocyte% 11.1 % (0-10); NRBC Flagged by Analyzer 0 % (0-5); Neutrophil # 5.58 X10^3/uL (2.7-7.7); Neutrophil % 62.9 % (47-70); Platelet Count 185 K/mm3 (150-450); RBC Distribution Width CV 13.1 % (11.6-14.6); RBC Distribution Width SD 47.4 fl (35.1-43.9); Red Blood Count 4.72 M/mm3 (4.6-6.2); White Blood Count 8.9 K/mm3 (4.4-11.0)
--- NOTE | 2024-04-12 13:29 | ED.VIS.CHEST ---
HPI History of Present Illness Chief Complaint: Chest Pain Informant: patient Onset/Context/Timing Onset: Today and Yesterday Activity at onset: gradual Timing: Intermittent Quality: Positive for Pain and Sharp Location: Right Chest (Right lateral chest.) Current Severity: Mild Maximum Severity: Mild Worsened By: Breathing; Not Worsened By Exertion, Movement of Arm, Movement of Torso, Eating, Palpation or Coughing Relieved By: Nothing Associated Symptoms: Negative for Nausea, Vomiting, Diaphoresis, Dyspnea, Cough, Fever, Lightheadedness, Acid Reflux or Palpitations Narrative Narrative: 43-year-old male history of prior DVT and PE protein C deficiency. Currently he is on no blood thinners. Stating that he has had right-sided chest discomfort last several days. Mild. Worse with inspiration. Does not feel short of breath. No significant cough or hemoptysis. No fever or chills. No leg pain or swelling. Denies any trauma to his chest wall. Prior Similar Symptoms: No Recent Illness/Hospitalization: No CVD Risk Factors: Positive for Smoking; Negative for Hypertension, Diabetes, Hypercholesterolemia or Family History 1' </=55 PE Risk Factors: Positive for Prior DVT or PE; Negative for Recent Travel/Surgery, Recent Immobilization, Cancer or OCP + Smoking + >/=35 TAD Risk Factors: Positive for Marfan's Syndrome [facility] Medical History DVT (deep venous thrombosis) Alcoholic liver disease Protein C deficiency History of venous thromboembolism History of narcotic addiction Tobacco use Anxiety and depression Kidney stones Alcohol abuse Migraine Home Medications ?Medication ?Instructions ?Recorded ?Last Taken ?Type apixaban 5 mg (74 tabs) tablets in See Rx Instructions .Route 04/12/24 Unknown Rx a dose pack (Eliquis DVT-PE Treat .COMPLEX #74 tabs 30D Start) hydrocodone-acetaminophen 5-325mg 1 tab PO Q8H PRN pain 4 days #12 04/12/24 Unknown Rx 5mg-325mg tabs Allergy/AdvReac Type Severity Reaction Status Date / Time No Known Allergies Allergy Verified 04/12/24 12:35 Family History Mother Breast cancer Thyroid disorder Father Thyroid disorder Surgical History History of hand surgery History of surgery on left wrist History of hernia repair History of foot surgery History of cholecystectomy Necks Fusion Social History household members: none Smoking Status: Heavy Smoker (>10/day) alcohol intake: current alcohol intake frequency: 3 or more drinks per day details: Hard liquor, 10-20 shots daily. substance use type: former substance user seatbelt use: always do you feel safe at home: Yes ROS ROS ED ROS Narrative Right-sided chest pain. Denies recent illness. Constitutional Constitutional ED: Denies chills or fever(s) Eyes Eyes: Reports none ENT ENT ED: Denies ear pain Cardiovascular Cardiovascular: Reports as per HPI and chest pain; Denies palpitations or racing heartbeat Respiratory/Chest Respiratory/Chest: Denies cough or dyspnea Gastrointestinal Gastrointestinal: Denies abdominal pain Genitourinary Genitourinary ED: Denies dysuria or hematuria Musculoskeletal Musculoskeletal: Denies arthralgias or back pain Integumentary Denies abscess Neurologic Neurologic: Denies headache(s) Psychiatric Psychiatric: Denies anxiety Endocrine Endocrinology: Denies cold intolerance Hematologic/Lymphatic Hematologic/Lymphatic: Denies easy bleeding Allergic/Immunologic Allergic/Immunologic ED: Denies mouth swelling, tongue swelling or urticaria EXAM Physical Exam Narrative Exam Narrative: Well-appearing 43-year-old male. Vital signs are stable afebrile. Pulse ox 96% on room air no hypoxia. H EENT exam unremarkable. Moist mucous membranes. Pupils round react to light. Neck nontender. No JVD. Lungs clear to auscultation bilaterally. Equal and symmetrical. Heart regular rate and rhythm rate about 90 no murmur. Chest wall and ribs nontender. No ecchymosis or bruising. No subcu air crepitus. No rash. No bony deformity. Abdomen soft nontender. No peritoneal signs. Back nontender. Moving all 4 extremities. 5-5 bellstand attendant strength. Equal symmetrical strong radial pulses. Calves are nontender without edema or cords. Normal range of motion both lower extremities. Normal dorsi plantarflexion. He is awake and alert. No focal motor or sensory deficits. Very benign exam. No reproducible chest wall pain. Const Vital Signs: 04/12/24 12:35 04/12/24 12:38 04/12/24 12:55 Temperature 97.8 F Temperature Source Oral Pulse Rate 92 Respiratory Rate 15 Respiratory Effort Normal Blood Pressure 104/79 Blood Pressure Mean 87 Pulse Ox 96 96 Oxygen Delivery Method Room Air Room Air 04/12/24 13:34 04/12/24 14:00 04/12/24 15:00 Temperature Temperature Source Pulse Rate 91 84 99 Respiratory Rate 18 17 14 Respiratory Effort Blood Pressure 105/69 93/58 L 98/74 Blood Pressure Mean 81 69 82 Pulse Ox 94 95 99 Oxygen Delivery Method Room Air Room Air Room Air 04/12/24 15:17 04/12/24 15:30 04/12/24 15:45 Temperature Temperature Source Pulse Rate 82 79 Respiratory Rate 17 16 Respiratory Effort Blood Pressure 94/71 115/84 H Blood Pressure Mean 79 95 Pulse Ox 95 97 Oxygen Delivery Method Room Air 04/12/24 15:53 04/12/24 16:00 Temperature Temperature Source Pulse Rate 87 88 Respiratory Rate 18 19 H Respiratory Effort Blood Pressure 114/80 Blood Pressure Mean 91 Pulse Ox 96 96 Oxygen Delivery Method Room Air Positive well nourished and well developed; Negative for obese, cachectic, contractures or unkempt General Appearance ED: well developed and NAD; Negative for unkempt, cachectic, contractures or pallor Nutritional Appearance: Negative for cachectic or obese HEENT Reports moist mucous membranes normocephalic and atraumatic Eyes PERRL and EOMs intact bilaterally Neck no lymphadenopathy, supple and no JVD Chest Wall inspection of chest normal and palpation of chest normal Chest: Negative for tenderness Resp normal respiratory effort and clear to auscultation bilaterally Effort and Inspection: Negative for respiratory distress Auscultation: Negative for rales, rhonchi or wheezes Cardio regular rate, regular rhythm, S1 normal heart sound, S2 normal heart sound and no murmurs Rate: Negative for bradycardia or tachycardic Rhythm: Negative for abnormal rhythm GI normal to inspection, nondistended, normoactive bowel sounds, soft to palpation, non-tender, non-distended and no masses; Negative for hepatosplenomegaly Back/Spine no CVA tenderness and no thoracic nor lumbar tenderness General Back: Negative for CVA tenderness or other Cervical Spine: Negative for cervical spine tenderness Extremity normal to inspection General Extremety ED: Negative for edema, pulses abnormal or tenderness General Extremity: Negative for edema or pulses abnormal Neuro oriented x3 and CN's II-XII intact bilaterally Sensorium / Orientation: awake, alert, oriented to person, oriented to place and oriented to time; Negative for confused, lethargic or stuporous Motor Exam: strength 5/5 throughout Psych mental status grossly normal Appearance: Negative for unkempt Attitude: No agitated Mood & Affect: Negative for depressed, anxious or tearful Skin no rashes or lesions noted and no wounds General Skin Exam: Negative for jaundice or pallor Rashes: No rashes noted Trauma: Negative for abrasion or laceration Heart Score History: Slightly/Non-Suspicious ECG: Normal Age: </= 45 years Risk Factors: No Risk Factors Troponin: </= Normal Limit Score: 0 MDM MDM MDM Narrative Medical decision making narrative: 43-year-old male with atypical right-sided nonreproducible chest pain. I do not think this is cardiac. He has had a history of DVT and protein C deficiency. We worked up both for cardiac and noncardiac chest pain including PE. Repeat exam patient was doing well. Due to the elevated D-dimer ordered a CTA which she has had we are waiting on the read. Repeat exam patient doing well at 4:25 PM. We went over his test results I was called by the radiologist and told he has pulmonary emboli in his right lung. He will be started on Eliquis which she has been on in the past. [place] for pain. We discussed and he will have his prescription sent here to our pharmacy. I did give him a Eliquis card for the free 30-day trial. He knows to follow-up with his primary care physician. History & Record Review Discussion w/independent historian: Patient Additional record(s) reviewed:: Prior inpatient record, Prior outpatient record, Prior ED visit and Prior labs Lab Data Attestation: I reviewed the patient's lab results. Lab results narrative: CBC shows a white count 8. H&H 15 and 46. Platelets 185. PT/INR 14 and 1.1. D-dimer is elevated 1.28. Therefore CTA of chest obtained Chemistries show gap at 9. BUN is 6 creatinine 0.7. Glucose 101. Troponin less than 3. 2-hour troponin less than 3 also. Labs: Laboratory Results - last 24 hr 04/12/24 04/12/24 13:04 15:20 WBC 8.9 RBC 4.72 Hgb 15.8 Hct 46.4 MCV 98.3 H MCH 33.5 H MCHC 34.1 RDW Std Deviation 47.4 H RDW Coeff of Margaret 13.1 Plt Count 185 MPV 10.8 Immature Gran % (Auto) 0.400 Neut % (Auto) 62.9 Lymph % (Auto) 24.6 [place] % (Auto) 11.1 H Eos % (Auto) 0.7 Baso % (Auto) 0.3 Absolute Neuts (auto) 5.6 Absolute Lymphs (auto) 2.19 Nucleated RBC % 0 PT 14.1 INR 1.1 D-Dimer Quant (PE/DVT) 1.28 H* Sodium 137 Potassium 4.3 Chloride 106 Carbon Dioxide 22.0 Anion Gap 9 BUN 6 L Creatinine 0.72 Estim Creat Clear Calc 144.29 Est GFR (MDRD) Af Amer 152 Est GFR (MDRD) Non-Af 125 BUN/Creatinine Ratio 8.3 L Glucose 101 Calcium 9.0 Troponin I High Sens < 3 L < 3 L Radiography Chest X-Ray - ED: 1 View and Read by ED Physician Diagnostic Testing: Clinical Impression(s) from Imaging Studies Chest X-Ray 04/12/24 13:43 IMPRESSION: Bibasilar opacities may represent atelectasis versus airspace disease. Reading Location: [facility] Chest CTA 04/12/24 15:23 IMPRESSION: 1. Right subsegmental pulmonary emboli with no evidence of right heart strain. 2. Bibasilar consolidation/atelectasis Findings communicated to Dr. Kain De Jesus on 04/12/24 at 1620 hours. One or more dose reduction techniques were used (e.g., Automated exposure control, adjustment of the mA and/or kV according to patient size, use of iterative reconstruction technique). Reading Location: [facility] Rhythm Strip Rhythm Strip: Sinus Rhythm Rate: 91 Ectopy: None EKG Initial EKG: Attestation: I personally reviewed and interpreted this EKG as follows: Interpretation: Sinus Rhythm and No Acute Injury Pattern Comments: Normal sinus rhythm rate of 91 no acute signs of NV or ischemia. Discharge Plan Triage Chief Complaint: Chest Pain ED Provider: Kain De Jesus Dx/Rx/DC Orders Clinical Impression: Pulmonary emboli Instructions: Embolism Pulmonary Dc Prescriptions: New Eliquis DVT-PE Treat 30D Start 5 mg (74 tabs) tablets,dose pack See Rx Instructions .Route .COMPLEX Qty: 74 0RF Rx Instructions: orally per package directions hydrocodone-acetaminophen 5-325 mg tablet 1 tab PO Q8H PRN (Reason: pain) 4 Days Qty: 12 0RF Primary Care Provider: Luis Riley Referrals: Luis Riley MD [Primary Care Provider] - 3-5 Days Activity Restrictions/Additional Instructions: Your blood clots in your right lung. You will need to be restarted on the blood thinner Eliquis. Most likely you will need to stay on these permanently or You will get additional blood clots. Due to your history of blood clots you need to be on a blood thinner all the time. Call and follow-up with your primary care physician for re-evaluation. [place] for the pain. Print Language: Georgian Disposition Disposition: Home, Self Care
[2024-04-12 13:31] LABS: International Normalized Ratio 1.1; Prothrombin Time (Protime)PT. 14.1 SECONDS (11.7-14.9)
--- NOTE | 2024-04-12 13:43 | RAD_ITS ---
PROCEDURE: CHEST 1 VIEW (PORTABLE) REASON FOR EXAM: Chest pain TECHNIQUE: Frontal and lateral views of the chest. COMPARISON: 11/11/2021 FINDINGS: The heart size is normal. The mediastinal contour is unremarkable. Bibasilar opacities near the costophrenic angles The bones are unremarkable. RAD/Chest 1 View (Portable) IMPRESSION: Bibasilar opacities may represent atelectasis versus airspace disease. Reading Location: [facility]
[2024-04-12 13:49] LABS: D-Dimer Quantitative (DVT/PE) 1.28 FEU/ug/m (0.27-0.49)
[2024-04-12 13:51] LABS: Anion Gap 9 (5-15); BUN 6 mg/dL (7-18); BUN/Creat Ratio 8.3 RATIO (10-20); Chloride 106 mmol/L (98-107); Creatinine, Serum 0.72 mg/dL (0.70-1.30); EST Glomerular Filtration Rate 125 mL/min (>60); Est Glom Filt Rate - Afr Amer 152 mL/min (>60); Estimated Creatinine Clearance 144.29 ml/min; Glucose 101 mg/dL (74-106); Potassium 4.3 mmol/L (3.5-5.1); Sodium Level 137 mmol/L (136-145); Troponin-I HS (w/2H Reflex) < 3 pg/mL (3.0-78.0)
[2024-04-12 15:12] LABS: Reflex Troponin-HS? (from REC) Y
--- NOTE | 2024-04-12 15:23 | CT_ITS ---
PROCEDURE: CTA CHEST W/WO CONTRAST REASON FOR EXAM: Right chest pain and elevated D-dimer TECHNIQUE: CTA imaging of the chest with intravenous contrast. 3D reconstructions. CONTRAST: COMPARISON: 11/11/2021 FINDINGS: Hardware: None. Lymph nodes: No mediastinal hilar or axillary lymphadenopathy. Heart: Coronary artery calcifications are noted. RV/LV Diameter Ratio: 0.7 Thoracic Aorta: No thoracic aortic aneurysm or dissection. Pulmonary Vessels: Filling defects in subsegmental middle and lower lobe pulmonary arteries Most Proximal Level of Embolus (if embolus present): Subsegmental Lungs and Airways: Bibasilar areas of consolidation, [id number], also noted in lingula. Pleura: No pleural effusion. No pneumothorax. Upper Abdomen: Visualized portions of the upper abdominal viscera are unremarkable. Bones: Bone windows are unremarkable. CT/CTA Chest W/WO Contrast IMPRESSION: 1. Right subsegmental pulmonary emboli with no evidence of right heart strain. 2. Bibasilar consolidation/atelectasis Findings communicated to Dr. Kain De Jesus on 04/12/24 at 1620 hours. One or more dose reduction techniques were used (e.g., Automated exposure contr ol, adjustment of the mA and/or kV according to patient size, use of iterative reconstruction technique). Reading Location: [facility]
[2024-04-12 16:08] LABS: Troponin-I HS < 3 pg/mL (3.0-78.0)
[2024-04-12] MEDS: HYDROcodone Bitartrate/Apap 5/325 Tablet PO (16:43)
== END 2024-04-12 16:46 | disposition home or self-care (01) ==
PROVIDERS: Emergency Provider Emergency Medicine; PCP Family Medicine; Visit Provider Emergency Medicine
DX: I26.93 Single subsegmental thrombotic pulmonary embolism without acute cor pulmonale (principal); D68.59 Other primary thrombophilia; Q87.40 Marfan syndrome, unspecified; F17.200 Nicotine dependence, unspecified, uncomplicated; Z86.718 Personal history of other venous thrombosis and embolism
CPT/HCPCS: 71045; 71275; 80048; 84484; 85025; 85379; 85610; 93005; 99284; Q9967; A4216

== ENCOUNTER 2024-04-17 18:37 | Emergency (ER) | payer BC, SELFPAY ==
[2024-04-17 18:40] VITALS: BP 117/73; PULSE 102; RESP 18; TEMP 36.8; O2SAT 95; BMI 22.6
[2024-04-17 18:49] VITALS: O2SAT 98
--- NOTE | 2024-04-17 18:56 | EDS_ITS ---
HPI History of Present Illness Chief Complaint: Cough PFSH PFSH Medical History DVT (deep venous thrombosis) Alcoholic liver disease Protein C deficiency History of venous thromboembolism History of narcotic addiction Tobacco use Anxiety and depression Kidney stones Alcohol abuse Migraine Home Medications ?Medication ?Instructions ?Recorded ?Last Taken ?Type apixaban 5 mg (74 tabs) tablets in See Rx Instructions .Route 04/12/24 Unknown Rx a dose pack (Eliquis DVT-PE Treat .COMPLEX #74 tabs 30D Start) hydrocodone-acetaminophen 5-325mg 1 tab PO Q8H PRN martinez n 4 days #12 04/12/24 Unknown Rx 5mg-325mg tabs Allergy/AdvReac Type Severity Reaction Status Date / Time No Known Allergies Allergy Verified 04/17/24 18:40 Family History Mother Breast cancer Thyroid disorder Father Thyroid disorder Surgical History History of hand surgery History of surgery on left wrist History of hernia repair History of foot surgery History of cholecystectomy Necks Fusion Social History (Updated 04/17/24 @ 18:49 by Stephanie Latham) household members: none housing: house Smoking Status: Heavy Smoker (>10/day) alcohol intake: current alcohol intake frequency: 3 or more drinks per day details: Hard liquor, 10-20 shots daily. substance use type: former substance user seatbelt use: always do you feel safe at home: Yes EXAM Physical Exam Const Vital Signs: 04/17/24 18:40 04/17/24 18:49 04/17/24 19:17 Temperature 98.2 F Temperature Source Temporal Pulse Rate 102 H Respiratory Rate 18 Respiratory Effort Normal Non-Labored Respiratory Depth Normal Respiratory Pattern Normal Blood Pressure 117/73 Blood Pressure Mean 87 Pulse Ox 95 98 Oxygen Delivery Method Room Air Room Air 04/17/24 20:25 Temperature 98 F Temperature Source Pulse Rate 78 Respiratory Rate 16 Respiratory Effort Respiratory Depth Respiratory Pattern Blood Pressure 133/89 H Blood Pressure Mean 103 Pulse Ox 99 Oxygen Delivery Method MDM MDM MDM Narrative Medical decision making narrative: HISTORY OF PRESENT ILLNESS: 43-year-old male history of DVT presents with concern for a hemoptysis. States he was seen here on Thursday and diagnosed with blood clots. States he was started on blood thinners at that time. REVIEW OF SYSTEMS: Pertinent positives: Hemoptysis, right-sided chest pain Pertinent negatives: Syncope PHYSICAL EXAM: Nursing triage notes reviewed, Vital signs reviewed Constitutional: please see [facility] HENT: MMM Eyes: Pupils equal round and reactive to light, Extraocular muscles intact Neck: No stridor, no JVD, full neck ROM Lungs: Clear to auscultation, No wheezing or rales. No increased work of breathing, no conversational dyspnea, no accessory muscle use, no nasal flaring. No respiratory distress noted Heart: Regular rate and rhythm, No murmurs, No rubs and No gallops, 2+ distal pulses (radial, femoral, posterior tibial) in all extremities Abdomen: Soft, there is no tenderness, rigidity, rebound or guarding, no obvious peritoneal signs, no palpable pulsatile abdominal masses, no auscultated abdominal bruit : No CVAT Extremities: No edema Neuro: No new focal neurological deficits, cranial nerves II through XII intact, 5/5 strength in all present extremities. Intact sensation to light touch in all present extremities, 2+ reflexes bilateral patella tendons. Skin: No rash or lesions noted MEDICAL DECISION MAKING: Chief Complaint: Hemoptysis External records reviewed: Imaging reviewed: CT of the chest from 04/12/2024 shows right subsegmental pulmonary emboli with no evidence of heart strain Factors affecting care: DVT on Eliquis Social determinants of health: none History obtained from others: none Consults: none [facility] [place] Narrative: Patient was initially hemodynamically stable, afebrile and nontoxic-appearing. Exam without focal cardiopulmonary abnormalities. I considered the following differential diagnosis: PE induced mopped assist, right heart strain, anemia I obtained labs to assess signs of right heart strain with troponin, BNP and EKG. I did not feel like the patient needed a repeat CT scan. ALL IMAGES (IF OBTAINED) HAVE BEEN PERSONALLY REVIEWED AND INTERPRETED BY MYSELF. EKG with normal sinus rhythm rate of 95, normal axis, normal intervals, no sign of right heart strain High-sensitivity troponin is negative, no evidence of myocardial ischemia BNP within the limit suggestive no significant right heart strain CBC with slight leukocytosis consistent with systemic inflammation likely secondary to PE derived inflammation, no significant anemia or thrombocytopenia noted BMP without evidence of significant electrolyte abnormalities, no anion gap, no acute kidney injury. I have personally reviewed the patient's chest x-ray. Chest x-ray is unremarkable for pulmonary edema, pneumothorax, pneumonia or focal cardiopulmonary abnormality. The synthesis of the patient's history, physical exam, labs images suggest no sign of significant right heart strain. Hemoptysis is likely secondary to already diagnosed pulm embolism. He is safe for discharge continue Eliquis and follow-up with primary care for further evaluation. Strict return precautions were discussed. The patient and/or family, caregivers express understanding. The patient and/or family, caregivers agrees with the plan. Shared decision making: I will have a discussion with the patient and or visitors regarding risk/benefits of further testing or admission. They will be made aware of of the risk/benefits inherent in this decision they will be given the opportunity to voice understanding. Total critical care time today provided was at least 0 minutes. This excludes separately billable procedures. Critical care time (if documented) is secondary to the patient having high probability of clinically significant/life threatening deterioration in the patient's condition which required my urgent intervention. Impression: 1. Hemoptysis 2. Pulmonary embolism Dispo: Discharge home This note was generated with [employer]Ch[employer] dictation software. It may contain incorrect words, spelling, and punctuation that were not noted in review of the chart prior to signing. Lab Data Labs: Laboratory Results - last 24 hr 04/17/24 18:51 WBC 11.4 H RBC 4.50 L Hgb 15.3 Hct 44.7 MCV 99.3 H MCH 34.0 H MCHC 34.2 RDW Std Deviation 46.8 H RDW Coeff of Margaret 12.7 Plt Count 234 MPV 10.4 Immature Gran % (Auto) 0.600 Neut % (Auto) 57.3 Lymph % (Auto) 33.9 [place] % (Auto) 6.8 Eos % (Auto) 0.7 Baso % (Auto) 0.7 Absolute Neuts (auto) 6.5 Absolute Lymphs (auto) 3.86 Nucleated RBC % 0 Sodium 141 Potassium 3.5 Chloride 109 H Carbon Dioxide 25.0 Anion Gap 7 BUN 7 Creatinine 0.88 Estim Creat Clear Calc 118.82 Est GFR (MDRD) Af Amer 120 Est GFR (MDRD) Non-Af 100 BUN/Creatinine Ratio 7.9 L Glucose 106 Calcium 8.4 L Troponin I High Sens < 3 L B-Natriuretic Peptide 24.4 Radiography Diagnostic Testing: Clinical Impression(s) from Imaging Studies Chest X-Ray 04/17/24 19:28 IMPRESSION: No acute airspace abnormality. Reading Location: [facility] Discharge Plan Triage Chief Complaint: Cough ED Provider: Rajinder Mensah Dx/Rx/DC Orders Instructions: ED Hemoptysis Prescriptions: No Action Eliquis DVT-PE Treat 30D Start 5 mg (74 tabs) tablets,dose pack See Rx Instructions .Route .COMPLEX Qty: 74 0RF Rx Instructions: orally per package directions hydrocodone-acetaminophen 5-325 mg tablet 1 tab PO Q8H PRN (Reason: pain) 4 Days Qty: 12 0RF Primary Care Provider: Luis Riley Referrals: Luis Riley MD [Primary Care Provider] - Activity Restrictions/Additional Instructions: Thank you for trusting us with your care today! Your labs images were consistent with a stable blood clot in your lung (pulmonary embolism) Please continue taking Eliquis as prescribed. Please take Tylenol (2 pills, 650 mg), every 6 hours as needed for pain and fever control. Please return to the emergency department if your symptoms change or worsen. Specifically if you lose consciousness, develop severe chest pain, he feel lightheaded, dizzy, or if you start coughing or vomiting large amounts of blood. Please follow with your primary care physician for further outpatient evaluation and management. Print Language: Syriac Disposition Disposition: Home, Self Care Discharge Date/Time: 04/17/24 20:45
--- NOTE | 2024-04-17 19:12 | EKG12_ITS ---
Test Reason : CP Blood Pressure : */* mmHG Vent. Rate : 95 BPM Atrial Rate : 95 BPM P-R Int : 120 ms QRS Dur : 86 ms QT Int : 364 ms P-R-T Axes : 35 67 60 degrees QTcB Int : 457 ms Normal sinus rhythm Normal ECG Confirmed by Cj Chi ([id number]), publication editor CHAGO REYEZ ([id number]) on 04/18/2024 10:30:33 AM Referred By: Rajinder Mensah Confirmed By: Cj Chi
[2024-04-17] MEDS: oxyCODONE 5 MG Tablet PO (19:16)
[2024-04-17 19:17] VITALS: O2SAT 98
[2024-04-17 19:28] LABS: Absolute Lymphocyte Count 3.86 X10^3/uL (0.83-4.51); Absolute Neutrophil Count 6.5 X10^3/uL (2.0-7.7); Basophil# 0.08 X10^3/uL; Basophil% 0.7 % (0-1); Eosinophil# 0.08 X10^3/uL; Eosinophils% 0.7 % (0-5); Hematocrit 44.7 % (40-54); Hemoglobin 15.3 g/dL (13.0-16.5); Lymphocyte # 3.86 X10^3/ul (0.83-4.51); Lymphocyte % 33.9 % (19-41); Mean Corp Hgb Conc 34.2 g/dL (32-36); Mean Corpuscular Volume 99.3 fL (80-94); Mean Platelet Vol. 10.4 fl (6.2-12.0); Monocyte# 0.78 X10^3/uL; Monocyte% 6.8 % (0-10); NRBC Flagged by Analyzer 0 % (0-5); Neutrophil # 6.53 X10^3/uL (2.7-7.7); Neutrophil % 57.3 % (47-70); Platelet Count 234 K/mm3 (150-450); RBC Distribution Width CV 12.7 % (11.6-14.6); RBC Distribution Width SD 46.8 fl (35.1-43.9); White Blood Count 11.4 K/mm3 (4.4-11.0)
--- NOTE | 2024-04-17 19:28 | RAD_ITS ---
PROCEDURE: Chest radiographs REASON FOR EXAM: Chest pain TECHNIQUE: Two views of the chest COMPARISON: 04/12/2024 FINDINGS: Cardiomediastinal silhouette is within normal limits. Lungs are clear. No sizable pneumothorax. RAD/Chest PA and Lateral IMPRESSION: No acute airspace abnormality. Reading Location: [facility]
[2024-04-17 19:41] LABS: Anion Gap 7 (5-15); BUN 7 mg/dL (7-18); BUN/Creat Ratio 7.9 RATIO (10-20); Calcium,Total 8.4 mg/dL (8.5-10.1); Chloride 109 mmol/L (98-107); Creatinine, Serum 0.88 mg/dL (0.70-1.30); EST Glomerular Filtration Rate 100 mL/min (>60); Est Glom Filt Rate - Afr Amer 120 mL/min (>60); Estimated Creatinine Clearance 118.82 ml/min; Glucose 106 mg/dL (74-106); Potassium 3.5 mmol/L (3.5-5.1); Sodium Level 141 mmol/L (136-145); Troponin-I HS < 3 pg/mL (3.0-78.0)
[2024-04-17 19:49] LABS: BNP,B-Type NATRIURETIC PEPTIDE 24.4 pg/mL (0-100)
[2024-04-17 20:25] VITALS: BP 133/89; PULSE 78; RESP 16; TEMP 36.6; O2SAT 99
== END 2024-04-17 20:45 | disposition home or self-care (01) ==
PROVIDERS: Emergency Provider Emergency Medicine; PCP Family Medicine; Referring Provider Emergency Medicine; Visit Provider Emergency Medicine
DX: I26.93 Single subsegmental thrombotic pulmonary embolism without acute cor pulmonale (principal); R04.2 Hemoptysis; Z79.01 Long term (current) use of anticoagulants; F17.200 Nicotine dependence, unspecified, uncomplicated; Z86.718 Personal history of other venous thrombosis and embolism
CPT/HCPCS: 71046; 80048; 83880; 84484; 85025; 93005; 99284; A4216

== ENCOUNTER 2024-06-11 18:27 | Emergency (ER) | payer BC, SELFPAY ==
[2024-06-11 18:27] VITALS: PULSE 98; RESP 16; TEMP 36.6; O2SAT 99; BMI 22.3
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
[2024-06-11] MEDS: HYDROcodone Bitartrate/Apap 5/325 Tablet PO (19:01)
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
[2024-06-11 20:54] VITALS: BP 134/65; PULSE 79; RESP 16; TEMP 36.4; O2SAT 99
== END 2024-06-11 20:55 | disposition home or self-care (01) ==
PROVIDERS: Emergency Provider Emergency Medicine; PCP Family Medicine; Referring Provider Emergency Medicine; Visit Provider Emergency Medicine
DX: S09.90XA Unspecified injury of head, initial encounter (principal); D68.59 Other primary thrombophilia; S20.20XA Contusion of thorax, unspecified, initial encounter; S80.02XA Contusion of left knee, initial encounter; F17.200 Nicotine dependence, unspecified, uncomplicated; Z79.01 Long term (current) use of anticoagulants; Z86.718 Personal history of other venous thrombosis and embolism; V89.0XXA Person injured in unspecified motor-vehicle accident, nontraffic, initial encounter; Y93.53 Activity, golf; Z90.49 Acquired absence of other specified parts of digestive tract
CPT/HCPCS: 70450; 71250; 73564; 99282

== ENCOUNTER 2024-10-05 16:48 | Inpatient (IN) | payer SELFPAY ==
[2024-10-05 16:50] VITALS: BP 120/95; PULSE 100; RESP 18; TEMP 36.6; O2SAT 97; BMI 22.8
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
[2024-10-05 17:18] LABS: Hematocrit 41.7 % (40-54); Hemoglobin 15.2 g/dL (13.0-16.5); Immature Granulocytes Count 0.110 X10^3/uL (0.0-0.0); Mean Corp Hgb Conc 36.5 g/dL (32-36); Mean Corpuscular Volume 98.8 fL (80-94); Mean Platelet Vol. 10.5 fl (6.2-12.0); NRBC Flagged by Analyzer 0 % (0-5); POSITIVE MORPHOLOGY YES; Platelet Count 153 K/mm3 (150-450); RBC Distribution Width CV 17.8 % (11.6-14.6); RBC Distribution Width SD 65.1 fl (35.1-43.9); Red Blood Count 4.22 M/mm3 (4.6-6.2); White Blood Count 10.4 K/mm3 (4.4-11.0)
[2024-10-05 17:20] LABS: Differential Indicated SCAN CRITERIA MET
[2024-10-05 17:38] LABS: Alcohol, Blood (Medical)-Serum 163.0 mg/dL (<=10.0)
[2024-10-05 17:39] LABS: AST(SGOT) 220 U/L (<=37); Alanine Aminotransfer ALT/SGPT 150 U/L (<=46); Albumin, Serum 4.2 g/dL (3.5-5.0); Alkaline Phosphatase 149 U/L (40-129); Anion Gap 16 (5-15); BUN 4 mg/dL (4-19); BUN/Creat Ratio 4.6 RATIO (10-20); Calcium,Total 9.2 mg/dL (7.6-11.0); Carbon Dioxide 23.3 mmol/L (21.0-32.0); Chloride 94 mmol/L (98-108); Estimated Creatinine Clearance 132.75 ml/min (50-250); Globulin 3.5 g/dL (2.2-4.2); Glucose 86 mg/dL (70-99); Potassium 3.7 mmol/L (3.3-5.1)
[2024-10-05 17:49] VITALS: BP 126/84; PULSE 99; RESP 18; O2SAT 99
--- NOTE | 2024-10-05 17:58 | HP.PCM.HOS_ITS ---
HPI - General General Date of Admission: 10/05/24 Date of Service: 10/05/24 Chief Complaint: Requesting EtOH detox HPI Narrative VANESSA DAILEY, is a 44-year-old male history of alcohol use disorder, tobacco use, VTE who presented to [facility] ED 10/05/2024 requesting alcohol detox. Reportedly he has had increased stress from separation from being for 18 years, kids, and working so he has relapsed on alcohol the past few months after being sober for 443 days. He reports he has been drinking throughout the day and will wake up and start drinking, last drink was 30 minutes prior to arrival and he had already had a sixpack of beer and several shots already today. In the ED temp 98, heart rate 100 and blood pressure 120/95, respiratory rate 18 pulse ox 97% on room air. CBC with white blood cell count 10.4 and hemoglobin 15.2, CMP with a total bili 1.9, AST 220, ALT 150 and alk phos 149, alcohol level 163. Hospitalist contacted for admission for alcohol detox. Patient evaluated at bedside. He reports drinking 12-18 beers a day and up to half a handle on top of that drinks from the time he wakes up until he goes to bed. Also smokes cigarettes but denies any other substance use except occasional marijuana. Does report that he has been having some indigestion symptoms for the past couple of weeks and sometimes is nauseous in the morning so has had some decreased p.o. intake. Also reports he chronically has some problems where he will have a little bit of abdominal pain when he lays on his right side denies that this is changed. Currently has a headache and has for about the past hour, he thinks the lights may be bothering his eyes. No other new or acute complaints [facility] Medical History DVT (deep venous thrombosis) Alcoholic liver disease Protein C deficiency History of venous thromboembolism History of narcotic addiction Tobacco use Anxiety and depression Kidney stones Alcohol abuse Migraine Home Medications ?Medication ?Instructions ?Recorded ?Last Taken ?Type apixaban 5 mg (74 tabs) tablets in See Rx Instructions .Route 04/12/24 Unknown Rx a dose pack (Eliquis DVT-PE Treat .COMPLEX #74 tabs 30D Start) hydrocodone-acetaminophen 5-325mg 1 tab PO Q6H PRN PRN Pain 3 days 06/11/24 Unknown Rx 5mg-325mg #10 TABLETS Allergy/AdvReac Type Severity Reaction Status Date / Time No Known Allergies Allergy Verified 10/05/24 16:50 Family History Mother Breast cancer Thyroid disorder Father Thyroid disorder Surgical History History of hand surgery History of surgery on left wrist History of hernia repair History of foot surgery History of cholecystectomy Necks Fusion Social History household members: none housing: house Smoking Status: Heavy Smoker (>10/day) alcohol intake: current alcohol intake frequency: 3 or more drinks per day details: Hard liquor, 10-20 shots daily. substance use type: former substance user seatbelt use: always do you feel safe at home: Yes ROS ROS Narrative General: Denies fever/chills HENT: Has had headache for the past hour, denies stuffy nose, denies sore throat EYES: Denies changes in vision Resp: Denies cough, denies shortness of breath Cardiac: Denies chest pain GI: Sometimes gets some right sided abdominal pain, denies changes in bowel, has been getting some indigestion and nausea in the morning : Denies changes in urination Extremity: Denies swelling MSK: Denies weakness Neuro: Denies any numbness/tingling Heme: Denies any bleeding or bruising Skin: Denies rashes Psychiatric: No complaints voiced Vital Signs Vital Signs Vital Signs: 10/05/24 16:50 Temperature 98 F Temperature Source Temporal Pulse Rate 100 Respiratory Rate 18 Blood Pressure 120/95 H Blood Pressure Mean 103 Pulse Ox 97 Oxygen Delivery Method Room Air Weight Weight: 78.653 kg Body Mass Index (BMI) 22.8 Physical Exam Narrative General: Alert, oriented, no apparent distress HEENT: Atraumatic, normocephalic Eyes: Anicteric, normal conjunctiva, extraocular movements grossly intact Neck: Supple Respiratory: Clear to auscultation bilaterally, normal respiratory effort Cardiovascular: Regular rate and rhythm GI: Soft, nontender, is a little rounded Extremities: No edema Musculoskeletal: Moving all extremities Neuro: No overt focal neurological deficits Skin: No rashes appreciated Psych: Cooperative Results Lab / Micro Data 10/05/24 17:01 10/05/24 17:01 Labs: Laboratory Results - last 24 hr 10/05/24 17:01: WBC 10.4, RBC 4.22 L, Hgb 15.2, Hct 41.7, MCV 98.8 H, MCH 36.0 H , MCHC 36.5 H, RDW Std Deviation 65.1 H, RDW Coeff of Margaret 17.8 H, Plt Count 153, MPV 10.5, Immature Gran % (Auto) 1.100 H, Neut % (Auto) 57.5, Lymph % (Auto) 27.1, [place] % (Auto) 12.8 H, Eos % (Auto) 0.9, Baso % (Auto) 0.6, Absolute Neuts (auto) 6.0, Absolute Lymphs (auto) 2.82, Nucleated RBC % 0, Sodium 134, Potassium 3.7, Chloride 94 L, Carbon Dioxide 23.3, Anion Gap 16 H, BUN 4, Creatinine 0.79, Estim Creat Clear Calc 132.75, Est GFR (MDRD) Non-Af 112, B UN/Creatinine Ratio 4.6 L, Glucose 86, Calcium 9.2, Total Bilirubin 1.90 H, AST 220 H, ALT 150 H, Alkaline Phosphatase 149 H, Total Protein 7.7, Albumin 4.2, Globulin 3.5, Albumin/Globulin Ratio 1.2, Ethyl Alcohol 163.0 H Assessment & Plan Assessment/Plan (1) Desire for detoxification: PLAN: Plan #Alcohol use disorder - We will begin CIWA every 4 for 24 hours, then every 6 for 24 hours, then every 12 until discharge -Will begin phenobarbital taper -Gabapentin 300 mg every 8 as needed -Will start Bentyl and hydroxyzine as needed as well as loperamide as needed -Trazodone 100 mg p.o. nightly as needed sleep -Begin thiamine and folic acid supplementation -Zofran as needed for nausea -Case management consult to assist with discharge planning -EtOH 163 -UDS pending at the time of admission # Elevated liver function tests -Has had elevations in the past, suspect that this is alcohol related -Will benefit from outpatient follow-up with repeat lab work and further workup if necessary #Reflux and morning nausea - Patient has been on Prilosec before and has a history of reflux, not presently taking anything - Symptoms do sound related to GERD - Will trial PPI #Tobacco use -Advise cessation -Nicotine replacement available if desired # History of VTE - Provoked DVT after an ankle surgery, status post Eliquis #DVT ppx: Given his history of VTE will place on prophylactic Lovenox Mecca Vargas MD Charges/Coding Visit Charges Inpatient E&M: 22203 Init Hosp L2
[2024-10-05 18:08] VITALS: BP 126/84; PULSE 99; RESP 18; TEMP 36.7; O2SAT 99
[2024-10-05 18:44] VITALS: BMI 22.3
[2024-10-05] MEDS: hydrOXYzine PAM 25 MG Capsule 50 MG PO ×2 (19:49→23:29)
[2024-10-05 20:06] LABS: Differential Comment SCANNED
[2024-10-05 20:07] LABS: Anisocytosis 1+; Polychromasia 1+
--- OUTSIDE RECORDS SUMMARY | 2024-10-05 20:59 | XMS RPT_ITS | CCD ---
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 0.70-1.30 [facility] Comment on above: Result Comment: The validity of the calculated GFR GFRAA in patients over 70 years has not been determined. Clinical correlation is essential. Performed By: #### L 300.3900, L100.0100, L500.2500, L501.5425 ####[facility] [address] [place], [address] ECRCL 144.29 ml/min Normal [facility] Comment on above: Performed By: #### L 300.3900, L100.0100, L500.2500, L501.5425 ####[facility] [address] [place], [address] EST GFR - AA 152 mL/min Normal >60 [facility] Comment on above: Result Comment: Afri can Hungarian GFR Calc Performed By: #### L 300.3900, L100.0100, L500.2500, L501.5425 ####[facility] [address] [place], [address] GAP 9 Normal 5-15 [facility] Comment on above: Performed By: #### L 300.3900, L100.0100, L500.2500, L501.5425 ####[facility] [address] [place], [address] GFR/1.73 sq M.predicted among non-blacks MDRD (S/P/Bld) [Vol rate/Area] 125 mL/min/{1.73_m2} Normal >60 [facility] Comment on above: Result Comment: Non- GFR Calc Performed By: #### L 300.3900, L100.0100, L500.2500, L501.5425 ####[facility] [address] [place], [address] Glucose [Mass/Vol] 101 mg/dL Normal 74-106 [facility] Comment on above: Result Comment: Fast ing Glucose result from 100 to 125 mg/dL suggests IMPAIRED HOMEOSTASIS per A.D.A. criteria. Performed By: #### L 300.3900, L100.0100, L500.2500, L501.5425 ####[facility] [address] [place], [address] Potassium [Moles/Vol] 4.3 mmol/L Normal 3.5-5.1 [facility] Comment on above: Result Comment: Mode rate Hemolysis, Result may be falsely increased. Performed By: #### L 300.3900, L100.0100, L500.2500, L501.5425 ####[facility] [address] [place], [address] Sodium [Moles/Vol] 137 mmol/L Normal 136-145 [facility] Comment on above: Performed By: #### L 300.3900, L100.0100, L500.2500, L501.5425 ####[facility] [address] [place], [address] Urea nitrogen [Mass/Vol] 6 mg/dL Low 09-09 [facility] Comment on above: Performed By: #### L 300.3900, L100.0100, L500.2500, L501.5425 ####[facility] [address] [place], [address] Basophil percentageOrdered B y: Kain De Jesus on 04-12-2024 Basophils/100 WBC (Bld) 0.3 % 0-1 [facility] Blood urea nitrogen (BUN)/cr eatinine ratioOrdered By: Kain De Jesus on 04-12-2024 Urea nitrogen/Creatinine [Mass ratio] 8.3 mg/mg Low 10-20 [facility] CBC W/Diff, Automatedon 03-26 Absolute Lymph 2.19 X10 3/uL Normal 0.83-4.51 [facility] Comment on above: Performed By: #### L 300.3900, L100.0100, L500.2500, L501.5425 ####[facility] [address] [place], [address] Absolute Neut 5.6 X10 3/uL Normal 2.0-7.7 [facility] Comment on above: Performed By: #### L 300.3900, L100.0100, L500.2500, L501.5425 ####[facility] [address] [place], [address] Basophils/100 WBC (Bld) 0.3 % Normal 0-1 [facility] Comment on above: Performed By: #### L 300.3900, L100.0100, L500.2500, L501.5425 ####[facility] [address] [place], [address] Eosinophils/100 WBC (Bld) 0.7 % Normal 0-5 [facility] Comment on above: Performed By: #### L 300.3900, L100.0100, L500.2500, L501.5425 ####[facility] [address] [place], [address] Erythrocyte distribution width (RBC) [Ratio] 13.1 % Normal 11.6-14.6 [facility] Comment on above: Performed By: #### L 300.3900, L100.0100, L500.2500, L501.5425 ####[facility] [address] [place], [address] Hematocrit (Bld) [Volume fraction] 46.4 % Normal 40-54 [facility] Comment on above: Performed By: #### L 300.3900, L100.0100, L500.2500, L501.5425 ####[facility] [address] [place], [address] Hemoglobin (Bld) [Mass/Vol] 15.8 g/dL Normal 13.0-16.5 [facility] Comment on above: Performed By: #### L 300.3900, L100.0100, L500.2500, L501.5425 ####[facility] [address] [place], [address] IG% 0.400 Normal 0.0-0.9 [facility] Comment on above: Result Comment: IG% - Immature Granulocytes (promyelocytes, myelocytes and metamyelocytes) > 1% indicates that a LEFT SHIFT is Present. Performed By: #### L 300.3900, L100.0100, L500.2500, L501.5425 ####[facility] [address] [place], [address] Lymphocytes/100 WBC (Bld) 24.6 % Normal 19-41 [facility] Comment on above: Performed By: #### L 300.3900, L100.0100, L500.2500, L501.5425 ####[facility] [address] [place], [address] MCH (RBC) [Entitic mass] 33.5 pg High 27.0-32.0 [facility] Comment on above: Performed By: #### L 300.3900, L100.0100, L500.2500, L501.5425 ####[facility] [address] [place], [address] MCHC (RBC) [Mass/Vol] 34.1 g/dL Normal 32-36 [facility] Comment on above: Performed By: #### L 300.3900, L100.0100, L500.2500, L501.5425 ####[facility] [address] [place], [address] MCV (RBC) [Entitic vol] 98.3 fL High 80-94 [facility] Comment on above: Performed By: #### L 300.3900, L100.0100, L500.2500, L501.5425 ####[facility] [address] [place], [address] Monocytes/100 WBC (Bld) 11.1 % High 0-10 [facility] Comment on above: Performed By: #### L 300.3900, L100.0100, L500.2500, L501.5425 ####[facility] [address] [place], [address] Neutrophils/100 WBC (Bld) 62.9 % Normal 47-70 [facility] Comment on above: Performed By: #### L 300.3900, L100.0100, L500.2500, L501.5425 ####[facility] [address] [place], [address] Nucleated RBC (Bld) [#/Vol] 0 10*3/uL Normal 0-5 [facility] Comment on above: Performed By: #### L 300.3900, L100.0100, L500.2500, L501.5425 ####[facility] [address] [place], [address] Platelet mean volume (Bld) [Entitic vol] 10.8 fL Normal 6.2-12.0 [facility] Comment on above: Performed By: #### L 300.3900, L100.0100, L500.2500, L501.5425 ####[facility] [address] [place], [address] Platelets (Bld) [#/Vol] 185 10*3/uL Normal 150-450 [facility] Comment on above: Performed By: #### L 300.3900, L100.0100, L500.2500, L501.5425 ####[facility] [address] [place], [address] RBC (Bld) [#/Vol] 4.72 10*6/uL Normal 4.6-6.2 [facility] Comment on above: Performed By: #### L 300.3900, L100.0100, L500.2500, L501.5425 ####[facility] [address] [place], [address] RDW SD 47.4 fl High 35.1-43.9 [facility] Comment on above: Performed By: #### L 300.3900, L100.0100, L500.2500, L501.5425 ####[facility] [address] [place], [address] WBC (Bld) [#/Vol] 8.9 10*3/uL Normal 4.4-11.0 [facility] Comment on above: Performed By: #### L 300.3900, L100.0100, L500.2500, L501.5425 ####[facility] [address] [place] [place], [address] CTA Chest W/WO Contraston CTA Chest W/WO Contrast [facility] Imaging Services [address] [place] [address] CTA Chest W/WO Contrast MR#: [id number] Acct: [id number] Name: TAPAN DAILEY Rep #: [id number] : 1980 M 43 From: Sherwin Little MD PCP: Dr. Luis Carnes MD Status: REG ER Study: CTA Chest W/WO Contrast Date of Exam: 04/12/24 Exam# [id number] Ordering Dr: Kain De Jesus MD PROCEDURE: CTA CHEST W/WO CONTRAST REASON FOR EXAM: Right chest pain and elevated D-dimer TECHNIQUE: CTA imaging of the chest with intravenous contrast. 3D reconstructions. CONTRAST: COMPARISON: 11/11/2021 FINDINGS: Hardware: None. Lymph nodes: No mediastinal hilar or axillary lymphadenopathy. Heart: Coronary artery calcifications are noted. RV/LV Diameter Ratio: 0.7 Thoracic Aorta: No thoracic aortic aneurysm or dissection. Pulmonary Vessels: Filling defects in subsegmental middle and lower lobe pulmonary arteries Most Proximal Level of Embolus (if embolus present): Subsegmental Lungs and Airways: Bibasilar areas of consolidation, eeabg-yplrthu-knys-left, also noted in lingula. Pleura: No pleural effusion. No pneumothorax. Upper Abdomen: Visualized portions of the upper abdominal viscera are unremarkable. Bones: Bone windows are unremarkable. CT/CTA Chest W/WO Contrast IMPRESSION: 1. Right subsegmental pulmonary emboli with no evidence of right heart strain. 2. Bibasilar consolidation/atelectasi s Findings communicated to Dr. Kain De Jesus on 04/12/24 at 1620 hours. One or more dose reduction techniques were used (e.g., Automated exposure control, adjustment of the mA and/or kV according to patient size, use of iterative reconstruction technique). Reading Location: [facility] CC: Dr. Kain De Jesus MD; Dr. Luis Carnes MD Clinical Laboratory Medical Director: Signed Normal [facility] Carbon dioxide measurementOr dered By: Kain De Jesus on 04-12-2024 CO2 [Moles/Vol] 22.0 mmol/L 21.0-32.0 [facility] Chest 1 View (Portable)on Chest 1 View (Portable) [facility] Imaging Services [address], [place] [address] Chest 1 View (Portable) MR#: [id number] Acct: [id number] Name: TAPAN DAILEY Rep #: [id number] : 1980 M 43 From: Sherwin Little MD PCP: Dr. Luis Carnes MD Status: PRE ER Study: Chest 1 View (Portable) Date of Exam: 04/12/24 Exam# [id number] Ordering Dr: Kain De Jesus MD PROCEDURE: CHEST 1 VIEW (PORTABLE) REASON FOR EXAM: Chest pain TECHNIQUE: Frontal and lateral views of the chest. COMPARISON: 11/11/2021 FINDINGS: The heart size is normal. The mediastinal contour is unremarkable. Bibasilar opacities near the costophrenic angles The bones are unremarkable. RAD/Chest 1 View (Portable) IMPRESSION: Bibasilar opacities may represent atelectasis versus airspace disease. [facility] CC: Dr. Kain De Jesus MD; Dr. Luis Carnes MD Clinical Laboratory Medical Director: Signed Normal [facility] Chloride measurementOrdered By: Kain De Jesus on 04-12-2024 Chloride [Moles/Vol] 106 mmol/L 98-107 [facility] D-Dimer Quantitative (DVT/PE )on 04-12-2024 D-DIMER QUANT 1.28 FEU/ug/m Invalid Interpretation Code 0.27-0.49 [facility] Comment on above: Result Comment: D-Di harshal ELEVATED (>0.49): Additional studies and clinical assessments are indicated to conclude diagnosis of: Deep Vein Thrombosis (DVT) or Pulmonary Embolism (PE) CRITICAL VALUE CALLED TO Isabella BHAGAT 04/12/24 Tiffanie Moreno. RESULTS READ BACK BY . Performed By: #### L 300.8000 #### [facility] [address] [place], [address] D-dimer measurement for deep venous thrombosisOrdered By: Kain De Jesus on 04-12-2024 D-Dimer Quantitative (PE/DVT) 1.28 FEU/ug/m High 0.27-0.49 [facility] Comment on above: D-Dimer ELEVATED (>0 .49): Additional studies and clinicalassessments are indicated to conclude diagnosis of:Deep Vein Thrombosis (DVT) or Pulmonary Embolism (PE)CRITICAL VALUE CALLED TO Isabella BHAGAT04/12/24 1349 Laure Tiffanie.RESULTS READ BACK BY . Emergency Department Summary on 04-12-2024 Emergency Department Summary [facility] Medical Records Department [address] [place] [address] Emergency Department Summary 04/12/24 MR#: [id number] Acct: [id number] Name: TAPAN DAILEY Rep #: [id number] : 1980 43 From: Kain De Jesus MD PCP: Dr. Luis Carnes MD Status:REG ER Location: ED HPI History of Present Illness Chief Complaint: Chest Pain Informant: patient Onset/Context/Timing Onset: Today and Yesterday Activity at onset: gradual Timing: Intermittent Quality: Positive for Pain and Sharp Location: Right Chest (Right lateral chest.) Current Severity: Mild Maximum Severity: Mild Worsened By: Breathing; Not Worsened By Exertion, Movement of Arm, Movement of Torso, Eating, Palpation or Coughing Relieved By: Nothing Associated Symptoms: Negative for Nausea, Vomiting, Diaphoresis, Dyspnea, Cough, Fever, Lightheadedness, Acid Reflux or Palpitations Narrative Narrative: 43-year-old male history of prior DVT and PE protein C deficiency. Currently he is on no blood thinners. Stating that he has had right-sided chest discomfort last several days. Mild. Worse with inspiration. Does not feel short of breath. No significant cough or hemoptysis. No fever or chills. No leg pain or swelling. Denies any trauma to his chest wall. Prior Similar Symptoms: No Recent Illness/Hospitalization: No CVD Risk Factors: Positive for Smoking; Negative for Hypertension, Diabetes, Hypercholesterolemia or Family History 1' PE Risk Factors: Positive for Prior DVT or PE; Negative for Recent Travel/Surgery, Recent Immobilization, Cancer or OCP + Smoking + >/=35 TAD Risk Factors: Positive for Marfan's Syndrome PFSH PFSH Medical History DVT (deep venous thrombosis) Alcoholic liver disease Protein C deficiency History of venous thromboembolism History of narcotic addiction Tobacco use Anxiety and depression Kidney stones Alcohol abuse Migraine Home Medications ???Medication ???Instructions ???Recorded ???Last Taken ???Type apixaban 5 mg (74 tabs) tablets in See Rx Instructions .Route 04/12 Unknown Rx a dose pack (Eliquis DVT-PE Treat .COMPLEX #74 tabs 30D Start) hydrocodone-acetaminophe n 5-325mg 1 tab PO Q8H PRN pain 4 days #12 04/12/24 Unknown Rx 5mg-325mg tabs Allergy/AdvReac Type Severity Reaction Status Date / Time No Known Allergies Allergy Verified 04/12/24 12:35 Family History Mother Breast cancer Thyroid disorder Father Thyroid disorder Surgical History History of hand surgery History of surgery on left wrist History of hernia repair History of foot surgery History of cholecystectomy Necks Fusion Social History household members: none Smoking Status: Heavy Smoker (>10/day) alcohol intake: current alcohol intake frequency: 3 or more drinks per day details: Hard liquor, 10-20 shots daily. substance use type: former substance user seatbelt use: always do you feel safe at home: Yes ROS ROS ED ROS Narrative Right-sided chest pain. Denies recent illness. Constitutional Constitutional ED: Denies chills or fever(s) Eyes Eyes: Reports none ENT ENT ED: Denies ear pain Cardiovascular Cardiovascular: Reports as per HPI and chest pain; Denies palpitations or racing heartbeat Respiratory/Chest Respiratory/Chest: Denies cough or dyspnea Gastrointestinal Gastrointestinal: Denies abdominal pain Genitourinary Genitourinary ED: Denies dysuria or hematuria Musculoskeletal Musculoskeletal: Denies arthralgias or back pain Integumentary Denies abscess Neurologic Neurologic: Denies headache(s) Psychiatric Psychiatric: Denies anxiety Endocrine Endocrinology: Denies cold intolerance Hematologic/Lymphatic Hematologic/Lymphatic: Denies easy bleeding Allergic/Immunologic Allergic/Immunologic ED: Denies mouth swelling, tongue swelling or urticaria EXAM Physical Exam Narrative Exam Narrative: Well-appearing 43-year-old male. Vital signs are stable afebrile. Pulse ox 96% on room air no hypoxia. H EENT exam unremarkable. Moist mucous membranes. Pupils round react to light. Neck nontender. No JVD. Lungs clear to auscultation bilaterally. Equal and symmetrical. Heart regular rate and rhythm rate about 90 no murmur. Chest wall and ribs nontender. No ecchymosis or bruising. No subcu air crepitus. No rash. No bony deformity. Abdomen soft nontender. No peritoneal signs. Back nontender. Moving all 4 extremities. 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 Equal symmetrical strong radial pulses. Calves are nontender without edema or cords. Normal range of motion both lower extremities. Normal dorsi plantarflexion. He is awake and alert. No focal karan (more content not included)... Normal [facility] Eosinophil percentageOrdered By: Kain De Jesus on 04-12-2024 Eosinophils/100 WBC (Bld) 0.7 % 0-5 [facility] Erythrocyte distribution wid th (RBC) [Ratio]Ordered By: Kain De Jesus on 04-12-2024 Erythrocyte distribution width (RBC) [Entitic vol] 47.4 fL High 35.1-43.9 [facility] Erythrocyte distribution wid th ratioOrdered By: Kain De Jesus on 04-12-2024 Erythrocyte distribution width (RBC) [Ratio] 13.1 % 11.6-14.6 [facility] Estimated glomerular filtrat ion rate (GFR) AmericanOrdered By: Kain De Jesus on 04-12-2024 Estimated GFR (MDRD) Amer 152 mL/min >60 [facility] Comment on above: GFR Calc Estimation of creatinine yuri aranceOrdered By: Kain De Jesus on 04-12-2024 Estimated Creatinine Clearance Calc 144.29 ml/min [facility] Glomerular filtration rate ( GFR) estimationOrdered By: Kain De Jesus on 04-12-2024 Estimated GFR (MDRD) Non-Af Amer 125 mL/min >60 [facility] Comment on above: Non- GFR Calc Glucose measurementOrdered B y: Kain De Jesus on 04-12-2024 Glucose [Mass/Vol] 101 mg/dL 74-106 [facility] Comment on above: Fasting Glucose resu lt from 100 to 125 mg/dL suggests IMPAIRED HOMEOSTASIS per A.D.A. criteria. Hematocrit Auto (Bld) [Volum e fraction]Ordered By: Kain De Jesus on 04-12-2024 Hematocrit (Bld) [Volume fraction] 46.4 % 40-54 [facility] Hemoglobin measurementOrdere d By: Kain De Jesus on 04-12-2024 Hemoglobin (Bld) [Mass/Vol] 15.8 g/dL 13.0-16.5 [facility] Immature granulocytes/100 WB C Auto (Bld)Ordered By: Kain De Jesus on 04-12-2024 Immature granulocytes/100 WBC (Bld) 0.400 % 0.0-0.9 [facility] Comment on above: IG% - Immature Granu locytes (promyelocytes, myelocytes and metamyelocytes) > 1% indicates that a LEFT SHIFT is Present. International normalized rat io (INR) calculationOrdered By: Kain De Jesus on 04-12-2024 INR Coag (Bld) [Relative time] 1.1 {INR} [facility] L501.4020on 04-12-2024 TROPONIN-I HS < 3 Low 3.0-78.0 [facility] Comment on above: Result Comment: Plegeovanny yu Note: New Test Units and Gender Specific Reference Ranges. For more information see Policy Stat Procedure [place] High Sensitivity Troponin (TNIH) and attachments. Performed By: #### L 501.4020 #### [facility] [place], [address] L501.5425on 04-12-2024 TROPONIN-I HS < 3 Low 3.0-78.0 [facility] Comment on above: Order Comment: 1Y Result Comment: Plea se Note: New Test Units and Gender Specific Reference Ranges. For more information see Policy Stat Procedure [place] High Sensitivity Troponin (TNIH) and attachments. Performed By: #### L 300.3900, L100.0100, L500.2500, L501.5425 ####[facility] [address] [place], [address] Lymphocytes Auto (Unsp spec) [#/Vol]Ordered By: Kain De Jesus on 04-12-2024 Lymphocytes (Bld) [#/Vol] 2.19 10*3/uL 0.83-4.51 [facility] Lymphocytes/100 WBC Auto (Un sp spec)Ordered By: Kain De Jesus on 04-12-2024 Lymphocytes/100 WBC (Bld) 24.6 % 19-41 [facility] MCV (mean corpuscular volume ) determinationOrdered By: Kain De Jesus on 04-12-2024 MCV (RBC) [Entitic vol] 98.3 fL High 80-94 [facility] Mean corpuscular hemoglobin (MCH) determinationOrdered By: Kain De Jesus on 04-12-2024 MCH (RBC) [Entitic mass] 33.5 pg High 27.0-32.0 [facility] Mean corpuscular hemoglobin concentration (MCHC) determinationOrdered By: Kain De Jesus on 04-12-2024 MCHC (RBC) [Mass/Vol] 34.1 g/dL 32-36 [facility] Mean platelet volume determi nationOrdered By: Kain De Jesus on 04-12-2024 Platelet mean volume (Bld) [Entitic vol] 10.8 fL 6.2-12.0 [facility] Monocyte percentageOrdered B y: Kain De Jesus on 04-12-2024 Monocytes/100 WBC (Bld) 11.1 % High 0-10 [facility] Neutrophil percentageOrdered By: Kain De Jesus on 04-12-2024 Neutrophils/100 WBC (Bld) 62.9 % 47-70 [facility] Nucleated red blood cell per centageOrdered By: Kain De Jesus on 04-12-2024 Nucleated RBC/100 WBC (Bld) [Ratio] 0 % 0-5 [facility] Platelet countOrdered By: Abdias De Jesus on 04-12-2024 Platelets (Bld) [#/Vol] 185 10*3/uL 150-450 [facility] Potassium measurementOrdered By: Kain De Jesus on 04-12-2024 Potassium [Moles/Vol] 4.3 mmol/L 3.5-5.1 [facility] Comment on above: Moderate Hemolysis, Result may be falsely increased. Prothrombin Time w/INRon INR Coag (PPP) [Relative time] 1.1 {INR} Normal [facility] Comment on above: Performed By: #### L 300.3900, L100.0100, L500.2500, L501.5425 ####[facility] [address] [place], [address] PT Coag (PPP) [Time] 14.1 s Normal 11.7-14.9 [facility] Comment on above: Performed By: #### L 300.3900, L100.0100, L500.2500, L501.5425 ####[facility] [address] [place], [address] Prothrombin timeOrdered By: Kain De Jesus on 04-12-2024 PT Coag (PPP) [Time] 14.1 s 11.7-14.9 [facility] RBC Auto (Bld) [#/Vol]Ordere d By: Kain De Jesus on 04-12-2024 RBC (Bld) [#/Vol] 4.72 10*6/uL 4.6-6.2 [facility] Serum anion gap measurementO rdered By: Kain De Jesus on 04-12-2024 Anion gap [Moles/Vol] 9 mmol/L 5-15 [facility] Serum or plasma calcium betty urement (mass/volume)Ordered By: Kain De Jesus on 04-12-2024 Calcium [Mass/Vol] 9.0 mg/dL 8.5-10.1 [facility] Serum or plasma creatinine m easurement (mass/volume)Ordered By: Kain De Jesus on 04-12-2024 Creatinine [Mass/Vol] 0.72 mg/dL 0.70-1.30 [facility] Comment on above: The validity of the calculated GFR & GFRAA in patients over 70 years has not been determined. Clinical correlation is essential. Serum or plasma urea nitroge n measurement (mass/volume)Ordered By: Kain De Jesus on 04-12-2024 Urea nitrogen [Mass/Vol] 6 mg/dL Low 7-18 [facility] Sodium levelOrdered By: Kain De Jesus on 04-12-2024 Sodium [Moles/Vol] 137 mmol/L 136-145 [facility] Troponin IOrdered By: Kain augustine on 04-12-2024 Troponin I High Sensitivity < 3 pg/mL Low 3.0-78.0 [facility] Comment on above: Please Note: New [place] t Units and Gender Specific Reference Ranges. For more information see Policy Stat Procedure [place] High Sensitivity Troponin (TNIH) and attachments. White blood cell (WBC) count Ordered By: Kain De Jesus on 04-12-2024 WBC (Bld) [#/Vol] 8.9 10*3/uL 4.4-11.0 [facility] Absolute neutrophil countOrd ered By: Tej Machuca on 03-04-2024 Neutrophils (Bld) [#/Vol] 3.5 10*3/uL 2.0-7.7 [facility] Albumin to globulin ratioOrd ered By: Tej Machuca on 03-04-2024 Albumin/Globulin [Mass ratio] 0.8 {ratio} Low 0.9-2.4 [facility] Basophil percentageOrdered B y: Tej Machuca on 03-04-2024 Basophils/100 WBC (Bld) 0.5 % 0-1 [facility] Bilirubin, totalOrdered By: Tej Machuca on 03-04-2024 Bilirubin [Mass/Vol] 1.80 mg/dL High 0.20-1.00 [facility] Comment on above: For patients on eltr ombopag therapy, use of Dimension [place] TBIL is not recommended. Blood urea nitrogen (BUN)/cr eatinine ratioOrdered By: Tej Machuca on 03-04-2024 Urea nitrogen/Creatinine [Mass ratio] 10.5 mg/mg 10-20 [facility] CBC W/Diff, Automatedon 02-23 Absolute Lymph 1.94 X10 3/uL Normal 0.83-4.51 [facility] Comment on above: Performed By: #### L 501.2300, L500.4050, L501.5200, L100.0100 ####[facility] [address] [place], [address] Absolute Neut 3.5 X10 3/uL Normal 2.0-7.7 [facility] Comment on above: Performed By: #### L 501.2300, L500.4050, L501.5200, L100.0100 ####[facility] [address] [place], [address] Basophils/100 WBC (Bld) 0.5 % Normal 0-1 [facility] Comment on above: Performed By: #### L 501.2300, L500.4050, L501.5200, L100.0100 ####[facility] [address] [place], [address] Eosinophils/100 WBC (Bld) 1.5 % Normal 0-5 [facility] Comment on above: Performed By: #### L 501.2300, L500.4050, L501.5200, L100.0100 ####[facility] [address] [place], [address] Erythrocyte distribution width (RBC) [Ratio] 15.6 % High 11.6-14.6 [facility] Comment on above: Performed By: #### L 501.2300, L500.4050, L501.5200, L100.0100 ####[facility] [address] [place], [address] Hematocrit (Bld) [Volume fraction] 45.3 % Normal 40-54 [facility] Comment on above: Performed By: #### L 501.2300, L500.4050, L501.5200, L100.0100 ####[facility] [address] [place], [address] Hemoglobin (Bld) [Mass/Vol] 15.8 g/dL Normal 13.0-16.5 [facility] Comment on above: Performed By: #### L 501.2300, L500.4050, L501.5200, L100.0100 ####[facility] [address] [place], [address] IG% 0.300 Normal 0.0-0.9 [facility] Comment on above: Result Comment: IG% - Immature Granulocytes (promyelocytes, myelocytes and metamyelocytes) > 1% indicates that a LEFT SHIFT is Present. Performed By: #### L 501.2300, L500.4050, L501.5200, L100.0100 ####[facility] [address] [place], [address] Lymphocytes/100 WBC (Bld) 32.2 % Normal 19-41 [facility] Comment on above: Performed By: #### L 501.2300, L500.4050, L501.5200, L100.0100 ####[facility] [address] [place], [address] MCH (RBC) [Entitic mass] 33.7 pg High 27.0-32.0 [facility] Comment on above: Performed By: #### L 501.2300, L500.4050, L501.5200, L100.0100 ####[facility] [address] [place], [address] MCHC (RBC) [Mass/Vol] 34.9 g/dL Normal 32-36 [facility] Comment on above: Performed By: #### L 501.2300, L500.4050, L501.5200, L100.0100 ####[facility] [address] [place], [address] MCV (RBC) [Entitic vol] 96.6 fL High 80-94 [facility] Comment on above: Performed By: #### L 501.2300, L500.4050, L501.5200, L100.0100 ####[facility] [address] [place], [address] Monocytes/100 WBC (Bld) 7.1 % Normal 0-10 [facility] Comment on above: Performed By: #### L 501.2300, L500.4050, L501.5200, L100.0100 ####[facility] [address] [place], [address] Neutrophils/100 WBC (Bld) 58.4 % Normal 47-70 [facility] Comment on above: Performed By: #### L 501.2300, L500.4050, L501.5200, L100.0100 ####[facility] [address] [place], [address] Nucleated RBC (Bld) [#/Vol] 0 10*3/uL Normal 0-5 [facility] Comment on above: Performed By: #### L 501.2300, L500.4050, L501.5200, L100.0100 ####[facility] [address] [place], [address] Platelet mean volume (Bld) [Entitic vol] 10.4 fL Normal 6.2-12.0 [facility] Comment on above: Performed By: #### L 501.2300, L500.4050, L501.5200, L100.0100 ####[facility] [address] [place], [address] Platelets (Bld) [#/Vol] 120 10*3/uL Low 150-450 [facility] Comment on above: Performed By: #### L 501.2300, L500.4050, L501.5200, L100.0100 ####[facility] [address] [place], [address] RBC (Bld) [#/Vol] 4.69 10*6/uL Normal 4.6-6.2 [facility] Comment on above: Performed By: #### L 501.2300, L500.4050, L501.5200, L100.0100 ####[facility] [address] [place], [address] RDW SD 55.3 fl High 35.1-43.9 [facility] Comment on above: Performed By: #### L 501.2300, L500.4050, L501.5200, L100.0100 ####[facility] [address] [place], [address] WBC (Bld) [#/Vol] 6.0 10*3/uL Normal 4.4-11.0 [facility] Comment on above: Performed By: #### L 501.2300, L500.4050, L501.5200, L100.0100 ####[facility] [address] [place], [address] Carbon dioxide measurementOr dered By: Tej Machuca on 03-04-2024 CO2 [Moles/Vol] 29.0 mmol/L 21.0-32.0 [facility] Chloride measurementOrdered By: Tej Machuca on 03-04-2024 Chloride [Moles/Vol] 105 mmol/L 98-107 [facility] Comprehensive Metabolic Prof ilon 03-04-2024 Albumin [Mass/Vol] 2.8 g/dL Low 3.2-5.0 [facility] Comment on above: Performed By: #### L 501.2300, L500.4050, L501.5200, L100.0100 ####[facility] [address] [place], [address] Albumin/Globulin [Mass ratio] 0.8 {ratio} Low 0.9-2.4 [facility] Comment on above: Performed By: #### L 501.2300, L500.4050, L501.5200, L100.0100 ####[facility] [address] [place], [address] ALK P 98 U/L Normal 45-117 [facility] Comment on above: Performed By: #### L 501.2300, L500.4050, L501.5200, L100.0100 ####[facility] [address] [place], [address] ALT [Catalytic activity/Vol] 50 U/L Normal 16-61 [facility] Comment on above: Performed By: #### L 501.2300, L500.4050, L501.5200, L100.0100 ####[facility] [address] [place], [address] AST [Catalytic activity/Vol] 83 U/L High 15-37 [facility] Comment on above: Performed By: #### L 501.2300, L500.4050, L501.5200, L100.0100 ####[facility] [address] [place], [address] Bilirubin [Mass/Vol] 1.80 mg/dL High 0.20-1.00 [facility] Comment on above: Result Comment: For patients on eltrombopag therapy, use of Dimension [place] TBIL is not recommended. Performed By: #### L 501.2300, L500.4050, L501.5200, L100.0100 ####[facility] [address] [place], [address] BUN/CRE 10.5 RATIO Normal 10-20 [facility] Comment on above: Performed By: #### L 501.2300, L500.4050, L501.5200, L100.0100 ####[facility] [address] [place], [address] CA,Total 8.4 mg/dL Low 8.5-10.1 [facility] Comment on above: Performed By: #### L 501.2300, L500.4050, L501.5200, L100.0100 ####[facility] [address] [place], [address] Chloride [Moles/Vol] 105 mmol/L Normal 98-107 [facility] Comment on above: Performed By: #### L 501.2300, L500.4050, L501.5200, L100.0100 ####[facility] [address] [place], [address] CO2 [Moles/Vol] 29.0 mmol/L Normal 21.0-32.0 [facility] Comment on above: Performed By: #### L 501.2300, L500.4050, L501.5200, L100.0100 ####[facility] [address] [place], [address] Creatinine [Mass/Vol] 0.86 mg/dL Normal 0.70-1.30 [facility] Comment on above: Result Comment: The validity of the calculated GFR GFRAA in patients over 70 years has not been determined. Clinical correlation is essential. Performed By: #### L 501.2300, L500.4050, L501.5200, L100.0100 ####[facility] [address] [place], [address] ECRCL 114.12 ml/min Normal [facility] Comment on above: Performed By: #### L 501.2300, L500.4050, L501.5200, L100.0100 ####[facility] [address] [place], [address] EST GFR - AA 125 mL/min Normal >60 [facility] Comment on above: Result Comment: Afri can [place] GFR Calc Performed By: #### L 501.2300, L500.4050, L501.5200, L100.0100 ####[facility] [address] [place], [address] GAP 4 Low 5-15 [facility] Comment on above: Performed By: #### L 501.2300, L500.4050, L501.5200, L100.0100 ####[facility] [address] [place], [address] GFR/1.73 sq M.predicted among non-blacks MDRD (S/P/Bld) [Vol rate/Area] 103 mL/min/{1.73_m2} Normal >60 [facility] Comment on above: Result Comment: Non- GFR Calc Performed By: #### L 501.2300, L500.4050, L501.5200, L100.0100 ####[facility] [address] [place], [address] Globulin (S) [Mass/Vol] 3.3 g/dL Normal 2.2-4.2 [facility] Comment on above: Performed By: #### L 501.2300, L500.4050, L501.5200, L100.0100 ####[facility] [address] [place], [address] Glucose [Mass/Vol] 93 mg/dL Normal 74-106 [facility] Comment on above: Performed By: #### L 501.2300, L500.4050, L501.5200, L100.0100 ####[facility] [address] [place], [address] Potassium [Moles/Vol] 3.7 mmol/L Normal 3.5-5.1 [facility] Comment on above: Performed By: #### L 501.2300, L500.4050, L501.5200, L100.0100 ####[facility] [address] [place], [address] Sodium [Moles/Vol] 138 mmol/L Normal 136-145 [facility] Comment on above: Performed By: #### L 501.2300, L500.4050, L501.5200, L100.0100 ####[facility] [address] [place], [address] T PROT 6.1 g/dL Low 6.4-8.2 [facility] Comment on above: Performed By: #### L 501.2300, L500.4050, L501.5200, L100.0100 ####[facility] [address] [place], [address] Urea nitrogen [Mass/Vol] 9 mg/dL Normal 7-18 [facility] Comment on above: Performed By: #### L 501.2300, L500.4050, L501.5200, L100.0100 ####[facility] [address] [place], [address] Eosinophil percentageOrdered By: Tej Machuca on 03-04-2024 Eosinophils/100 WBC (Bld) 1.5 % 0-5 [facility] Erythrocyte distribution wid th (RBC) [Ratio]Ordered By: Tej Machuca on 03-04-2024 Erythrocyte distribution width (RBC) [Entitic vol] 55.3 fL High 35.1-43.9 [facility] Erythrocyte distribution wid th ratioOrdered By: Tej Machuca on 03-04-2024 Erythrocyte distribution width (RBC) [Ratio] 15.6 % High 11.6-14.6 [facility] Estimated glomerular filtrat ion rate (GFR) AmericanOrdered By: Tej Machuca on 03-04-2024 Estimated GFR (MDRD) Amer 125 mL/min >60 [facility] Comment on above: GFR Calc Estimation of creatinine yuri aranceOrdered By: Tej Machuca on 03-04-2024 Estimated Creatinine Clearance Calc 114.12 ml/min [facility] Glomerular filtration rate ( GFR) estimationOrdered By: Tej Machuca on 03-04-2024 Estimated GFR (MDRD) Non-Af Amer 103 mL/min >60 [facility] Comment on above: Non- GFR Calc Glucose measurementOrdered B y: Tej Machuca on 03-04-2024 Glucose [Mass/Vol] 93 mg/dL 74-106 [facility] Hematocrit Auto (Bld) [Volum e fraction]Ordered By: Tej Machuca on 03-04-2024 Hematocrit (Bld) [Volume fraction] 45.3 % 40-54 [facility] Hemoglobin measurementOrdere d By: Tej Machuca on 03-04-2024 Hemoglobin (Bld) [Mass/Vol] 15.8 g/dL 13.0-16.5 [facility] Immature granulocytes/100 WB C Auto (Bld)Ordered By: Tej Machuca on 03-04-2024 Immature granulocytes/100 WBC (Bld) 0.300 % 0.0-0.9 [facility] Comment on above: IG% - Immature Granu locytes (promyelocytes, myelocytes and metamyelocytes) > 1% indicates that a LEFT SHIFT is Present. Laboratory - Chemistry and C hemistry - challengeOrdered By: Tej Machuca on 03-04-2024 AST [Catalytic activity/Vol] 83 U/L High 15-37 [facility] Lymphocytes Auto (Unsp spec) [#/Vol]Ordered By: Tej Machuca on 03-04-2024 Lymphocytes (Bld) [#/Vol] 1.94 10*3/uL 0.83-4.51 [facility] Lymphocytes/100 WBC Auto (Un sp spec)Ordered By: Tej Machuca on 03-04-2024 Lymphocytes/100 WBC (Bld) 32.2 % 19-41 [facility] MCV (mean corpuscular volume ) determinationOrdered By: Tej Machuca on 03-04-2024 MCV (RBC) [Entitic vol] 96.6 fL High 80-94 [facility] Magnesiumon 03-04-2024 Magnesium [Mass/Vol] 1.6 mg/dL Normal 1.6-2.6 [facility] Comment on above: Performed By: #### L 501.2300, L500.4050, L501.5200, L100.0100 ####[facility] [address] [place], [address] Magnesium measurementOrdered By: Tej Machuca on 03-04-2024 Magnesium [Mass/Vol] 1.6 mg/dL 1.6-2.6 [facility] Mean corpuscular hemoglobin (MCH) determinationOrdered By: Tej Machuca on 03-04-2024 MCH (RBC) [Entitic mass] 33.7 pg High 27.0-32.0 [facility] Mean corpuscular hemoglobin concentration (MCHC) determinationOrdered By: Tej Machuca on 03-04-2024 MCHC (RBC) [Mass/Vol] 34.9 g/dL 32-36 [facility] Mean platelet volume determi nationOrdered By: Tej Machuca on 03-04-2024 Platelet mean volume (Bld) [Entitic vol] 10.4 fL 6.2-12.0 [facility] Monocyte percentageOrdered B y: Tej Machuca on 03-04-2024 Monocytes/100 WBC (Bld) 7.1 % 0-10 [facility] Neutrophil percentageOrdered By: Tej Machuca on 03-04-2024 Neutrophils/100 WBC (Bld) 58.4 % 47-70 [facility] Nucleated red blood cell per centageOrdered By: Tej Machuca on 03-04-2024 Nucleated RBC/100 WBC (Bld) [Ratio] 0 % 0-5 [facility] Phosphoruson 03-04-2024 Phosphate [Mass/Vol] 3.3 mg/dL Normal 2.5-4.9 [facility] Comment on above: Performed By: #### L 501.2300, L500.4050, L501.5200, L100.0100 ####[facility] [address] [place], [id number] Phosphorus measurementOrdere d By: Tej Machuca on 03-04-2024 Phosphorus Level 3.3 mg/dL 2.5-4.9 [facility] Platelet countOrdered By: Sherwin Machuca on 03-04-2024 Platelets (Bld) [#/Vol] 120 10*3/uL Low 150-450 [facility] Potassium measurementOrdered By: Tej Machuca on 03-04-2024 Potassium [Moles/Vol] 3.7 mmol/L 3.5-5.1 [facility] RBC Auto (Bld) [#/Vol]Ordere d By: Tej Machuca on 03-04-2024 RBC (Bld) [#/Vol] 4.69 10*6/uL 4.6-6.2 [facility] Serum anion gap measurementO rdered By: Tej Machuca on 03-04-2024 Anion gap [Moles/Vol] 4 mmol/L Low 5-15 [facility] Serum globulin measurementOr dered By: Tej Machuca on 03-04-2024 Globulin (S) [Mass/Vol] 3.3 g/dL 2.2-4.2 [facility] Serum or plasma alanine umanzor otransferase (ALT) measurementOrdered By: Tej Machuca on 03-04-2024 ALT [Catalytic activity/Vol] 50 U/L 16-61 [facility] Serum or plasma albumin betty urement (mass/volume)Ordered By: Tej Machuca on 03-04-2024 Albumin [Mass/Vol] 2.8 g/dL Low 3.2-5.0 [facility] Serum or plasma alkaline tawana sphatase measurementOrdered By: Tej Machuca on 03-04-2024 ALP [Catalytic activity/Vol] 98 U/L 45-117 [facility] Serum or plasma calcium betty urement (mass/volume)Ordered By: Tej Machuca on 03-04-2024 Calcium [Mass/Vol] 8.4 mg/dL Low 8.5-10.1 [facility] Serum or plasma creatinine m easurement (mass/volume)Ordered By: Tej Machuca on 03-04-2024 Creatinine [Mass/Vol] 0.86 mg/dL 0.70-1.30 [facility] Comment on above: The validity of the calculated GFR & GFRAA in patients over 70 years has not been determined. Clinical correlation is essential. Serum or plasma urea nitroge n measurement (mass/volume)Ordered By: Tej Machuca on 03-04-2024 Urea nitrogen [Mass/Vol] 9 mg/dL 7-18 [facility] Sodium levelOrdered By: Nishant Machuca on 03-04-2024 Sodium [Moles/Vol] 138 mmol/L 136-145 [facility] Total proteinOrdered By: Kin Machuca on 03-04-2024 Protein [Mass/Vol] 6.1 g/dL Low 6.4-8.2 [facility] White blood cell (WBC) count Ordered By: Tej Machuca on 03-04-2024 WBC (Bld) [#/Vol] 6.0 10*3/uL 4.4-11.0 [facility] CBC W/Diff, Automatedon PATH REV Reviewed Normal [facility] Comment on above: Result Comment: Poly cythemia Clinical correlation necessary. Bartolo Yadav M.D. 03/03/24 AMENDED REPORT 03/03/24 1002 PATH REV previously reported as: June Performed By: #### L 501.2450, L100.0100, L505.5000, L501.9100, L500.4050 ####[facility] [address] [place], [address] Comprehensive Metabolic Prof ilon 03-03-2024 Albumin [Mass/Vol] 2.9 g/dL Low 3.2-5.0 [facility] Comment on above: Performed By: #### L 500.4050, L501.2300 ####[facility] [address] [place], [address] Albumin/Globulin [Mass ratio] 0.9 {ratio} Normal 0.9-2.4 [facility] Comment on above: Performed By: #### L 500.4050, L501.2300 ####[facility] [address] [place], [address] ALK P 104 U/L Normal 45-117 [facility] Comment on above: Performed By: #### L 500.4050, L501.2300 ####[facility] [address] [place], [address] ALT [Catalytic activity/Vol] 44 U/L Normal 16-61 [facility] Comment on above: Performed By: #### L 500.4050, L501.2300 ####[facility] [address] [place], [address] AST [Catalytic activity/Vol] 64 U/L High 15-37 [facility] Comment on above: Performed By: #### L 500.4050, L501.2300 ####[facility] [address] [place], [address] Bilirubin [Mass/Vol] 2.00 mg/dL High 0.20-1.00 [facility] Comment on above: Result Comment: For patients on eltrombopag therapy, use of Dimension [place] TBIL is not recommended. Performed By: #### L 500.4050, L5.2300 ####[facility] [address] [place], [address] BUN/CRE 6.5 RATIO Low 10-20 [facility] Comment on above: Performed By: #### L 500.4050, L5.0 ####[facility] [address] [place], [address] CA,Total 8.4 mg/dL Low 8.5-10.1 [facility] Comment on above: Performed By: #### L 500.4050, L501.2300 ####[facility] [address] [place], [address] Chloride [Moles/Vol] 102 mmol/L Normal 98-107 [facility] Comment on above: Performed By: #### L 500.4050, L501.2300 ####[facility] [address] [place], [address] CO2 [Moles/Vol] 30.0 mmol/L Normal 21.0-32.0 [facility] [facility] Comment on above: Performed By: #### L 500.4050, L501.2300 ####[facility] [address] [place], [address] Creatinine [Mass/Vol] 0.93 mg/dL Normal 0.70-1.30 [facility] Comment on above: Result Comment: The validity of the calculated GFR GFRAA in patients over 70 years has not been determined. Clinical correlation is essential. Performed By: #### L 500.4050, L501.2300 ####[facility] [address] [place], [address] ECRCL 105.53 ml/min Normal [facility] Comment on above: Performed By: #### L 500.4050, L501.2300 ####[facility] [address] [place], [address] EST GFR - AA 114 mL/min Normal >60 [facility] Comment on above: Result Comment: Afri can Hungarian GFR Calc Performed By: #### L 500.4050, L501.2300 ####[facility] [address] [place], [address] GAP 6 Normal 5-15 [facility] Comment on above: Performed By: #### L 500.4050, L501.2300 ####[facility] [address] [place], [address] GFR/1.73 sq M.predicted among non-blacks MDRD (S/P/Bld) [Vol rate/Area] 94 mL/min/{1.73_m2} Normal >60 [facility] Comment on above: Result Comment: Non- GFR Calc Performed By: #### L 500.4050, L501.2300 ####[facility] [address] [place], [address] Globulin (S) [Mass/Vol] 3.3 g/dL Normal 2.2-4.2 [facility] Comment on above: Performed By: #### L 500.4050, L501.2300 ####[facility] [address] [place], [address] Glucose [Mass/Vol] 104 mg/dL Normal 74-106 [facility] Comment on above: Result Comment: Fast ing Glucose result from 100 to 125 mg/dL suggests IMPAIRED HOMEOSTASIS per A.D.A. criteria. Performed By: #### L 500.4050, L501.2300 ####[facility] [address] [place], [address] Potassium [Moles/Vol] 3.6 mmol/L Normal 3.5-5.1 [facility] [place] Comment on above: Performed By: #### L 500.4050, L501.2300 ####[facility] [address] [place], [address] Sodium [Moles/Vol] 138 mmol/L Normal 136-145 [facility] Comment on above: Performed By: #### L 500.4050, L501.2300 ####[facility] [address] [place], [address] T PROT 6.2 g/dL Low 6.4-8.2 [facility] Comment on above: Performed By: #### L 500.4050, L501.2300 ####[facility] [address] [place], [address] Urea nitrogen [Mass/Vol] 6 mg/dL Low 7-18 [facility] Comment on above: Performed By: #### L 500.4050, L501.2300 ####[facility] [address] [place], [address] Phosphoruson 03-03-2024 Phosphate [Mass/Vol] 3.9 mg/dL Normal 2.5-4.9 [facility] Comment on above: Performed By: #### L 500.4050, L501.2300 ####[facility] [address] [place], [address] Alcohol, Blood (Medical)-Ser umon 01-08-2025 SERUM ETOH 246.0 mg/dL Normal [facility] Comment on above: Result Comment: The serum:whole blood ethanol ratio is approximately 1.14 and varies slightly with hematocrit. Medical Alcohol reference interval and critical value in non-tolerant individuals; 50 - 100 Impairment 100 Intoxication 100 - 250 Severe Poisoning 250 - 400 Deep/possible fatal coma Performed By: #### L 501.2450, L100.0100, L505.5000, L501.9100, L500.4050 ####[facility] [address] [place], [address] Comprehensive Metabolic Prof ilon 03-02-2024 Albumin [Mass/Vol] 3.7 g/dL Normal 3.2-5.0 [facility] Comment on above: Performed By: #### L 501.2450, L100.0100, L505.5000, L501.9100, L500.4050 ####[facility] [address] [place], [address] Albumin/Globulin [Mass ratio] 0.9 {ratio} Normal 0.9-2.4 [facility] Comment on above: Performed By: #### L 501.2450, L100.0100, L505.5000, L501.9100, L500.4050 ####[facility] [address] [place], [address] ALK P 123 U/L High 45-117 [facility] Comment on above: Performed By: #### L 501.2450, L100.0100, L505.5000, L501.9100, L500.4050 ####[facility] [address] [place], [address] ALT [Catalytic activity/Vol] 60 U/L Normal 16-61 [facility] Comment on above: Performed By: #### L 501.2450, L100.0100, L505.5000, L501.9100, L500.4050 ####[facility] [address] [place], [address] AST [Catalytic activity/Vol] 108 U/L High 15-37 [facility] Comment on above: Performed By: #### L 501.2450, L100.0100, L505.5000, L501.9100, L500.4050 ####[facility] [address] [place], [address] Bilirubin [Mass/Vol] 1.80 mg/dL High 0.20-1.00 [facility] Comment on above: Result Comment: For patients on eltrombopag therapy, use of Dimension [place] TBIL is not recommended. Performed By: #### L 501.2450, L100.0100, L505.5000, L501.9100, L500.4050 ####[facility] [address] [place], [address] BUN/CRE 2.4 RATIO Low 10-20 [facility] Comment on above: Performed By: #### L 501.2450, L100.0100, L505.5000, L501.9100, L500.4050 ####[facility] [address] [place], [address] CA,Total 9.2 mg/dL Normal 8.5-10.1 [facility] Comment on above: Performed By: #### L 501.2450, L100.0100, L505.5000, L501.9100, L500.4050 ####[facility] [address] [place], [address] Chloride [Moles/Vol] 101 mmol/L Normal 98-107 [facility] Comment on above: Performed By: #### L 501.2450, L100.0100, L505.5000, L501.9100, L500.4050 ####[facility] [address] [place], [address] CO2 [Moles/Vol] 28.0 mmol/L Normal 21.0-32.0 [facility] Comment on above: Performed By: #### L 501.2450, L100.0100, L505.5000, L501.9100, L500.4050 ####[facility] [address] [place], [address] Creatinine [Mass/Vol] 0.85 mg/dL Normal 0.70-1.30 [facility] Comment on above: Result Comment: The validity of the calculated GFR GFRAA in patients over 70 years has not been determined. Clinical correlation is essential. Performed By: #### L 501.2450, L100.0100, L505.5000, L501.9100, L500.4050 ####[facility] [address] [place], [address] ECRCL 122.68 ml/min Normal [facility] Comment on above: Performed By: #### L 501.2450, L100.0100, L505.5000, L501.9100, L500.4050 ####[facility] [address] [place], [address] EST GFR - AA 126 mL/min Normal >60 [facility] Comment on above: Result Comment: Afri can Hungarian GFR Calc Performed By: #### L 501.2450, L100.0100, L505.5000, L501.9100, L500.4050 ####[facility] [address] [place], [address] GAP 7 Normal 5-15 [facility] Comment on above: Performed By: #### L 501.2450, L100.0100, L505.5000, L501.9100, L500.4050 ####[facility] [address] [place], [address] GFR/1.73 sq M.predicted among non-blacks MDRD (S/P/Bld) [Vol rate/Area] 104 mL/min/{1.73_m2} Normal >60 [facility] Comment on above: Result Comment: Non- GFR Calc Performed By: #### L 501.2450, L100.0100, L505.5000, L501.9100, L500.4050 ####[facility] [address] [place], [address] Globulin (S) [Mass/Vol] 4.3 g/dL High 2.2-4.2 [facility] Comment on above: Performed By: #### L 501.2450, L100.0100, L505.5000, L501.9100, L500.4050 ####[facility] [address] [place], [address] Glucose [Mass/Vol] 98 mg/dL Normal 74-106 [facility] Comment on above: Performed By: #### L 501.2450, L100.0100, L505.5000, L501.9100, L500.4050 ####[facility] [address] [place], [address] Potassium [Moles/Vol] 3.4 mmol/L Low 3.5-5.1 [facility] Comment on above: Performed By: #### L 501.2450, L100.0100, L505.5000, L501.9100, L500.4050 ####[facility] [address] [place], [address] Sodium [Moles/Vol] 137 mmol/L Normal 136-145 [facility] Comment on above: Performed By: #### L 501.2450, L100.0100, L505.5000, L501.9100, L500.4050 ####[facility] [address] [place], [address] T PROT 8.0 g/dL Normal 6.4-8.2 [facility] Comment on above: Performed By: #### L 501.2450, L100.0100, L505.5000, L501.9100, L500.4050 ####[facility] [address] [place], [address] Urea nitrogen [Mass/Vol] 2 mg/dL Low 7-18 [facility] Comment on above: Performed By: #### L 501.2450, L100.0100, L505.5000, L501.9100, L500.4050 ####[facility] [address] [place], [address] Emergency Department Summary on 03-02-2024 Emergency Department Summary [facility] Medical Records Department [address] [place] [address] Emergency Department Summary 03/02/24 MR#: [id number] Acct: [id number] Name: TAPAN DAILEY Rep #: [id number] : 1980 43 From: Ewa Condon DO PCP: Dr. Luis Carnes MD Status:ADM IN Location: [address] History of Present Illness Chief Complaint: ETOH Intox Informant: patient Narrative Narrative: Patient is a 43-year-old male with history of tachycardia, protein C deficiency and alcohol abuse presenting for alcohol detox. Patient states he has been drinking for years. He is presenting with his sponsor today as he states he is now finally ready to get sober. He notes his last drink was a little bit ago. He states that he drinks as much as he can and a mixture of beer and liquor. He states the last 24 hours he had a half of 1/5 of 94 proof liquor as well to 7 to 824 ounce beers. He notes that if he does not drink he does get tremulous but is not sure if he has a history of seizures/DTs. He does have a remote history of opioid abuse but does not use any illicit drugs he states in 15 years specifically opioids. He denies any other opioid use. He last was in inpatient detox here December 2021 but he states at that time he was more forced into and was not ready. He believes that he has liver problems and notes that he does have a chronic pain of his liver. Denies any acute change in this. Denies any swelling of his abdomen. Denies any black or blood in his stool but notes he does not usually look at it. He states he does get frequent diarrhea. He has some chronic nausea. Does not take any medicine on a daily basis. Does not feel like he is withdrawing at this time. No other complaints or concerns at this time. [facility] Medical History Alcoholic liver disease Protein C deficiency History of venous thromboembolism History of narcotic addiction Tobacco use Anxiety and depression Kidney stones Alcohol abuse Migraine Home Medications ???Medication ???Instructions ???Recorded ???Last Taken ???Type NK 03/02/24 Unknown History Allergy/AdvReac Type Severity Reaction Status Date / Time No Known Allergies Allergy Verified 03/02/24 13:55 Family History Mother Breast cancer Thyroid disorder Father Thyroid disorder Surgical History History of hand surgery History of surgery on left wrist History of hernia repair History of foot surgery History of cholecystectomy Necks Fusion Social History household members: significant other Smoking Status: Heavy Smoker (>10/day) alcohol intake: current alcohol intake frequency: 3 or more drinks per day details: Hard liquor, 10-15 shots daily. substance use type: former substance user seatbelt use: always do you feel safe at home: Yes ROS ROS ED Constitutional Constitutional ED: Denies chills or fever(s) Eyes Eyes: Denies change in vision Cardiovascular Cardiovascular: Denies chest pain Respiratory/Chest Respiratory/Chest: Denies cough or dyspnea Gastrointestinal Gastrointestinal: Reports abdominal pain, diarrhea and nausea; Denies vomiting Musculoskeletal Musculoskeletal: Denies arthralgias or myalgias Neurologic Neurologic: Reports paresthesias and other Details: chronic neuropathy of bilateral toes Psychiatric Psychiatric: Reports anxiety Hematologic/Lymphatic Hematologic/Lymphatic: Denies easy bleeding or easy bruising EXAM Physical Exam Const Vital Signs: 03/02/24 13:56 Temperature 98 F Temperature Source Temporal Pulse Rate 115 H Respiratory Rate 22 H Blood Pressure 130/85 H Blood Pressure Mean 100 Pulse Ox 98 Oxygen Delivery Method Room Air Positive well nourished and well developed General Appearance ED: well developed and NAD HEENT Reports moist mucous membranes Eyes PERRL Neck supple Chest Wall inspection of chest normal Resp normal respiratory effort and clear to auscultation bilaterally Cardio regular rate, regular rhythm and no murmurs GI soft to palpation and no masses GI Narrative: Negative Matos sign, no fluid wave appreciated Inspection: Negative for abdominal distention Palpation: tender RUQ Extremity Extremity Narrative: 2+ radial DP pulses present General Extremety ED: Negative for edema General Extremity: Negative for edema Neuro oriented x3 Sensorium / Orientation: alert Motor Exam: Negative for general weakness Psych mental status grossly normal Mood Affect: anxious and tearful Skin General Skin Exam: Negative for jaundice Lesions: no lesions Rashes: no rashes MDM (more content not included)... Normal [facility] H AND P Exam - Hospitaliston 03-02-2024 H&P Exam - Hospitalist [facility] Medical Records Department [address] [place] [address] H P Exam - Hospitalist 03/02/24 1558 MR#: [id number] Acct: [id number] Name: TAPAN DAILEY Rep #: [id number] : 1980 43 From: María Elena Steiner MD PCP: Dr. Luis Carnes MD Status:ADM IN Location: [facility] ON760-7 HPI - General General Date of Admission: 03/02/24 Date of Service: 03/02/24 Chief Complaint: EtOH Detoxification request HPI Narrative The patient is a 43 y/o M w/ PMHx: Anxiety and Depression, Hx Protein C deficiency w/ Hx VTE on eliquis per previous records however he notes has not been taking this and has declined to restart, Alcoholic liver disease following w/ Friend w/ chronically elevated Bilirubin/LFTs, Anxiety and Depression, Chronic back pain, Chronic migraines, GERD, Tobacco use, History of Opiate abuse previously on suboxone, EtOH abuse with frequent liquor intake with last detox discharge 01/07/2022 and notes that he maintained sobriety for several months following but unfortunately started a relationship with someone who also had substance abuse issues and started drinking heavily again with again at least 10-20 shots daily with last intake approximately 2 to 3 hours prior to ED arrival with now mild tremulousness and dyspepsia/nausea but no emesis requesting detox. Workup in the ED included T98, heart 115, BP 130/85, respiratory rate 22, 98% on room air, CBC with WC 8.1, he will 18.4, platelet 182 without marked shift, BMP with potassium 3.4, BUN/creatinine 2/0.5, total bilirubin 1.80, AST/ALT 108/60, alk phos 123, lipase 44, UDS negative, ethyl alcohol 246. [facility] Medical History Alcoholic liver disease Protein C deficiency History of venous thromboembolism History of narcotic addiction Tobacco use Anxiety and depression Kidney stones Alcohol abuse Migraine Home Medications ???Medication ???Instructions ???Recorded ???Last Taken ???Type NK 03/02/24 Unknown History Allergy/AdvReac Type Severity Reaction Status Date / Time No Known Allergies Allergy Verified 03/02/24 13:55 Family History Mother Breast cancer Thyroid disorder Father Thyroid disorder Surgical History History of hand surgery History of surgery on left wrist History of hernia repair History of foot surgery History of cholecystectomy Necks Fusion Social History (Updated 03/02/24 @ 19:[address] María Elena Steiner MD) household members: none Smoking Status: Heavy Smoker (>10/day) alcohol intake: current alcohol intake frequency: 3 or more drinks per day details: Hard liquor, 10-20 shots daily. substance use type: former substance user seatbelt use: always do you feel safe at home: Yes ROS ROS Narrative Admission Review of Systems: CONSTITUTIONAL: No weight loss, fever, chills, + weakness or fatigue. HEENT: Eyes: No visual loss, blurred vision, double vision or yellow sclerae. Ears, Nose, Throat: No hearing loss, sneezing, congestion, runny nose or sore throat. SKIN: No rash or itching, lesions, wounds. CARDIOVASCULAR: No chest pain, chest pressure or chest discomfort, palpitations, orthopnea, syncopal events, edema. RESPIRATORY: No shortness of breath, cough or sputum, wheezing, hemoptysis. GASTROINTESTINAL: + Mild anorexia, nausea without vomiting. No diarrhea, constipation, diarrhea, abdominal pain, melena, BRBPR. GENITOURINARY: No dysuria, frequency, urgency or retention. NEUROLOGICAL: + Mild tremors. No headache, dizziness, syncope, paralysis, ataxia, numbness or tingling in the extremities, focal weakness, change in bowel or bladder control, seizure. MUSCULOSKELETAL: + muscle, back pain, joint pain or stiffness. HEMATOLOGIC: No anemia, bleeding or bruising. LYMPHATICS: No enlarged nodes. No history of splenectomy. PSYCHIATRIC: No history of depression or anxiety. ENDOCRINOLOGIC: No reports of sweating, cold or heat intolerance. No polyuria or polydipsia. ALLERGIES: No history of asthma, hives, eczema or rhinitis. Vital Signs Vital Signs Vital Signs: 03/02/24 13:56 Temperature 98 F Temperature Source Temporal Pulse Rate 115 H Respiratory Rate 22 H Blood Pressure 130/85 H Blood Pressure Mean 100 Pulse Ox 98 Oxygen Delivery Method Room Air Weight Weight: 170 lb 10.205 oz Body Mass Index (BMI) 22.5 Physical Exam Narrative Physical Examination: General: Awake, alert, oriented x 3 and cooperative, seated upright in the ED bed, fatigued, tearful with discussions. Skin: Normal color, normal turgor, no icterus, no cyanosis except occasional abrasion, staged ecchymoses. HEENT: AT/NC, EOMI, PERRLA, mildly dry MM, no carotid bruits or JVD no (more content not included)... Normal [facility] Lipaseon 03-02-2024 Lipase [Catalytic activity/Vol] 44 U/L Normal -75 [facility] Comment on above: Result Comment: Dio yu note: LIPASE revised reference range effective 22. New Lipase methodology. Expected to produce lower values than the previous assay method. NEW Reference Range: 13 - 75 U/L Performed By: #### L 501.2450, L100.0100, L505.5000, L501.9100, L500.4050 ####[facility] [address] [place], [address] Lipase measurementOrdered By : Ewa Condon on 03-02-2024 Lipase [Catalytic activity/Vol] 44 U/L -75 [facility] Comment on above: Please note:LIPASE r evised reference range effective 22. New Lipase methodology. Expected to produce lower values than the previous assay method. NEW Reference Range: 13 - 75 U/L Magnesiumon 03-02-2024 Magnesium [Mass/Vol] 1.8 mg/dL Normal 1.6-2.6 [facility] Comment on above: Order Comment: Comme nts: May add to ED labsComments: may add to ED labs Performed By: #### L 501.5200, L501.2300 ####[facility] [address] [place], [address] Methadone, urineOrdered By: Ewa Condon on 03-02-2024 Urine Methadone Screen Negative < 300 ng/mL [facility] No Panel InformationOrdered By: Ewa Condon on 03-02-2024 Urine Drug Screen Comment [facility] Comment on above: CONFIRMATORY TESTING FOR ALL POSITIVE URINE DRUG SCREENRESULTS WILL ONLY BE SENT OUT UPON PHYSICIAN ORDER. VISTA Urine Drug Screen methods provide only preliminaryanalytical test results. A more specific alternate chemicalmethod must be used in order to obtain a confirmedanalytical result. Gas chromatography/mass spectrometery(GC/MS) is the preferred confirmatory method. Clinicalconsideration and professional judgement should be appliedto any drug of abuse test result, particularly whenpreliminary positive results are used. URINE TCA TESTING MUST BE ORDERED SEPARATELY. USE TESTMNEMONIC: [facility] Pathologist review [place] (Unsp spec) [Interp]Ordered By: Ewa Condon on 03-02-2024 Differential Pathologist's Review Reviewed [facility] Comment on above: Previous reported re sult: Jovita liang Edited by: LYDIA on 03/03/24:1002PolycythemiaClinical correlation necessary.Bartolo Yadav M.D. 03/03/24 AMENDED REPORT 03/03/24 1002 PATH REV previously reported as: Jovita liang Phosphoruson 03-02-2024 Phosphate [Mass/Vol] 2.0 mg/dL Low 2.5-4.9 [facility] Comment on above: Order Comment: Comme nts: May add to ED labsComments: may add to ED labs Performed By: #### L 501.5200, L501.2300 ####[facility] [address] [place], [address] Quantitative urine opiates m easurementOrdered By: Ewa Condon on 03-02-2024 Opiates Ql (U) Negative < 300 ng/mL [facility] Serum ethanol measurementOrd ered By: Ewa Condon on 03-02-2024 Ethyl Alcohol Level 246.0 mg/dL [facility] Comment on above: The serum:whole bloo d ethanol ratio is approximately 1.14and varies slightly with hematocrit. Medical Alcohol reference interval and critical value innon-tolerant individuals; 50 - 100 Impairment 100 Intoxication 100 - 250 Severe Poisoning 250 - 400 Deep/possible fatal coma Urine Drug Screen (VISTA)on 03-02-2024 AMPHETAMINES Negative Normal <1000 ng/mL [facility] Comment on above: Performed By: #### L 501.2450, L100.0100, L505.5000, L501.9100, L500.4050 ####[facility] [address] [place], [address] BARBITIURATES Negative Normal < 200 ng/mL [facility] Comment on above: Performed By: #### L 501.2450, L100.0100, L505.5000, L501.9100, L500.4050 ####[facility] [address] [place], [address] BENZODIAZIPINE Negative Normal < 200 ng/mL [facility] Comment on above: Performed By: #### L 501.2450, L100.0100, L505.5000, L501.9100, L500.4050 ####[facility] [address] [place], [address] COCAINE Negative Normal < 300 ng/mL [facility] Comment on above: Performed By: #### L 501.2450, L100.0100, L505.5000, L501.9100, L500.4050 ####[facility] [address] [place], [address] ECSTACY Negative Normal < 500 ng/mL [facility] Comment on above: Performed By: #### L 501.2450, L100.0100, L505.5000, L501.9100, L500.4050 ####[facility] [address] [place], [address] METHADONE Negative Normal < 300 ng/mL [facility] Comment on above: Performed By: #### L 501.2450, L100.0100, L505.5000, L501.9100, L500.4050 ####[facility] [address] [place], [address] OPIATES Negative Normal < 300 ng/mL [facility] Comment on above: Performed By: #### L 501.2450, L100.0100, L505.5000, L501.9100, L500.4050 ####[facility] [address] [place], [address] PCP Negative Normal < 25 ng/mL [facility] Comment on above: Performed By: #### L 501.2450, L100.0100, L505.5000, L501.9100, L500.4050 ####[facility] [address] [place], [address] THC Negative Normal < 50 ng/mL [facility] Comment on above: Performed By: #### L 501.2450, L100.0100, L505.5000, L501.9100, L500.4050 ####[facility] [address] [place], [address] VISTA UDS PH 7 Normal [facility] Comment on above: Performed By: #### L 501.2450, L100.0100, L505.5000, L501.9100, L500.4050 ####[facility] [address] [place], [address] Urine amphetamine measuremen tOrdered By: Ewa Condon on 03-02-2024 Amphetamines Ql (U) Negative <1000 ng/mL [facility] Urine barbiturates measureme ntOrdered By: Ewa Condon on 03-02-2024 Urine Barbiturates Screen Negative < 200 ng/mL [facility] Urine benzodiazepine levelOr dered By: Ewa Condon on 03-02-2024 Benzodiazepines Ql (U) Negative < 200 ng/mL [facility] Urine cocaine levelOrdered B y: Ewa Condon on 03-02-2024 Cocaine Ql (U) Negative < 300 ng/mL [facility] Urine vuago-1-rnvpvnjehmefbt abinol (THC) measurementOrdered By: Ewa Condon on 03-02-2024 Cannabinoids Screen Ql (U) Negative < 50 ng/mL [facility] Urine methylenedioxymethamph etamine (MDMA) measurementOrdered By: Ewa Condon on 03-02-2024 MDMA (Ecstasy) Screen Negative < 500 ng/mL [facility] Urine phencyclidine (PCP) de tectionOrdered By: Ewa Condon on 03-02-2024 Phencyclidine Ql (U) Negative < 25 ng/mL [facility] CNPNon 02-20-2023 [facility] Telephone (UCWSTR) -------- TAPAN DAILEY ([id number]) 1980 M [facility] Date Time Provider Department 02/20/23 FRANK NEWMAN [facility] During your visit today, we recorded the following information about you: Frank Newman PA 02/20/2023 8:01 AM Signed Please let patient know he is positive for influenza. He is out of the window for treatment. Supportive treatment at home. Mami Stratton LPN 02/20/2023 8:29 AM Signed Left message for patient to return call. MELINDA Yang Brittany L, MA 02/20/2023 6:27 PM Signed X2 attempt. Unable to reach AND unable to leave message d/t VM being full. Please try again tomorrow 02/21/23. YUAN Ernandez Melissa 02/23/2023 8:59 AM Signed Patient given results and verbalized understanding of instructions given. Carmen Miller Allergies As of Date: 02/20/2023 Noted Allergy Reaction NAPROXEN 04/25/2005 2 - Rash Comments: Plus GI upset Date Reviewed: 02/19/2023 Reviewed by: Asif Ordaz APRN.PRIMARY TEACHER - Fully Assessed Reason for Visit: Results [95] Prescriptions as of 02/23/2023 - trimethoprim-polymyxin (POLYTRIM) 10,000 unit- 1 mg/mL ophthalmic solution Use 1 Drop in the right eye four times daily for 7 days. - omeprazole (PRILOSEC) 40 mg capsule Take 40 mg by mouth once daily. - promethazine (PHENERGAN) 25 mg tablet Take 25 mg by mouth every 6 hours as needed. 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] 07/28/2005 Attention deficit disorder with hyperactivity(3*10/01/19 08 Predominant Disturbance of Emotions [R45.89] 10/01/2007 12/08/2008 Unspecified Adjustment Reaction [F43.20] 10/01/2007 12/08/2008 Sterilization [Z30.2] 11/26/2007 12/08/2008 Other, Mixed, or Unspecified Nondependent Drug *12/17/2007 Class: Chronic Routine general medical examination at a [facility]*12/08/2008 11/28/2011 Class: Chronic Tobacco Use Disorder [F17.200] 12/08/2008 Chronic pain syndrome [G89.4] 11/28/2011 Gallstones [K80.20] 04/11/2020 04/11/2020 ETOHism (HCC) [F10.20] 04/29/2021 COVID-19 [U07.1] 09/18/2021 Other pulmonary embolism without acute cor pulm*09/18/2021 Neuropathy, alcoholic (HCC) [G62.1] 01/20/2022 Encounter Status:Closed by CARMEN MILLER on 02/23/23 [facility] CNOVon 02-19-2023 CNOV Office Visit (UCWSTR ) -------- TAPAN DAILEY ([id number]) 1980 M [facility] Date Time Provider Department 02/19/23 6:30 PM ASIF ORDAZ [facility] During your visit today, we recorded the following information about you: Temperature Pulse Respiration Blood pressure 99 degrees 113/minute 18/minute 97/63 Weight 74.8 kg Asif Ordaz, [employer] PL[employer] SE[employer]ING DISTRIBUTOR.PRIMARY TEACHER 02/19/2023 7:02 PM Signed Subjective HPI Nontoxic-appearing appearing male presents urgent care chief complaint flulike symptoms. Duration of symptoms 2 days. Associated symptoms nasal congestion fever body aches chills cough headache sore throat. Does have some eye redness and drainage. This started 3 days ago. Has not used any OTC medications. Has been using warm compresses. Feels like eye swelling was worse yesterday than today. Eye was matted shut upon arising. Denies any high fevers productive cough chest pain shortness of breath pleuritic pain hemoptysis nausea vomiting abdominal pain eye trauma flashlight floaters visual changes contact lens use. Past medical history prescription medication use allergies reviewed. .Patient presents with: Cough: Congestion, fever, swelling in Right eye redness and itching x 2 days PAST MEDICAL HISTORY Diagnosis Date Arthritis Chronic pain syndrome Depression Gallstones Hiatal hernia Other, mixed, or unspecified nondependent drug abuse, continuous abuse with both prescription and street obtained narcotics SOB (shortness of breath) PAST SURGICAL HISTORY Procedure Laterality Date CHOLECYSTECTOMY 04/11/2020 lap EGD 06/30/2019 2 cm hiatal hernia, erythema in stomach and duodenum EXTRACTION ERUPTED TOOTH/EXR age 18 FOOT SURGERY HX Left 2019 X2 screw in left foot LAST ONE IN NOV 2019 INGUINAL HERNIA REPAIR HX Left 1993 PAST SURGICAL HISTORY OF 2011 X2 cervical disc disease LAST ONE IN 2011 PAST SURGICAL HISTORY OF Left 2006 THUMB SURGERY X3 LAST ONE IN 2006 WRIST SURGERY HX Left 05/31/06 (year?) X2 wrist (L), Dr. Ruiz -- cyst and calcium build-up, tendon repaired LAST ONE IN 2006 ALLERGIES Naproxen MEDICATIONS omeprazole (PRILOSEC) 40 mg capsule Take 40 mg by mouth once daily. promethazine (PHENERGAN) 25 mg tablet Take 25 mg by mouth every 6 hours as needed. (Patient not taking: Reported on 02/19/2023) FAMILY HISTORY Problem Relation Age of Onset Hypertension Father Coronary Artery Disease Other none Diabetes Paternal Grandfather Colon Cancer Other none Prostate Cancer Other none Social History Tobacco Use Smoking status: Every Day Packs/day: 1.00 Years: 8.00 Additional pack years: 0.00 Total pack years: 8.00 Types: Cigarettes Smokeless tobacco: Former Vaping Use Vaping Use: Never used Substance Use Topics Alcohol use: Yes Alcohol/week: 2.0 standard drinks of alcohol Types: 2 Cans of Beer (12oz) per week Drug use: Not Currently Comment: none since 2012 BP 97/63 Pulse 113 Temp 37.2 ?C (99 ?F) Resp 18 Wt 74.8 kg (165 lb) SpO2 96% BMI 21.77 kg/m? Hr 93 Review of Systems Constitutional: Positive for chills, fever and malaise/fatigue. HENT: Positive for congestion and sore throat. Negative for ear discharge, ear pain and sinus pain. Eyes: Positive for discharge and redness. Negative for blurred vision and pain. Respiratory: Positive for cough. Negative for hemoptysis, sputum production, shortness of breath, wheezing and stridor. Cardiovascular: Negative for chest pain. Gastrointestinal: Negative for abdominal pain, diarrhea, nausea and vomiting. Musculoskeletal: Positive for myalgias. Skin: Negative for itching and rash. Neurological: Positive for headaches. Negative for dizziness. Objective Physical Exam Constitutional: General: He is not in acute distress. Appearance: He is not diaphoretic. HENT: Head: Normocephalic. Jaw: No trismus, tenderness, swelling or pain on movement. Nose: Congestion present. Mouth/Throat: Mouth: Mucous membranes are moist. Pharynx: Oropharynx is clear. Uvula midline. No pharyngeal swelling, oropharyngeal exudate, posterior oropharyngeal erythema or uvula swelling. Eyes: General: Lids are normal. Lids are everted, no foreign bodies appreciated. Vision grossly intact. Right eye: Discharge present. No foreign body or hordeolum. Left eye: No foreign body, discharge or hordeolum. Conjunctiva/sclera: Right eye: Right conjunctiva is injected. Exudate present. No chemosis or hemorrhage. Left eye: Left conjunctiva is not injected. No chemosis, exudate or hemorrhage. Pupils: Pupils are equal, round, and reactive to light. Comments: Slight hue of redness underneath right eye. No edema. No evidence of orbital or periorbital cellulitis. Cardiovascular: Rate and Rhythm: Normal rate and regular rhythm. Heart sounds: Normal heart sounds. Pulmonary: Effort: Pulmonary effort is norm (more content not included)... Normal [facility] FLUABV + SARS-CoV-2 Pnl Resp ULI+prbon 02-19-2023 Influenza virus A and B RNA and SARS-CoV-2 (COVID-19) N gene panel ULI+probe (Resp) COVID 19 RESULT: Not detected The method used is RT-PCR or an equivalent NAAT method. Reference Range (the expected result in uninfected individuals): Not detected INFLUENZA A PCR: Not detected INFLUENZA B PCR: Detected Abnormal [facility] Comment on above: Performed By: #### 9 [id number] #### [facility] CLIA [id number] [address] [place] [address] [place] Absolute lymphocyte counton 01-02-2022 Lymphocytes Auto (Unsp spec) [#/Vol] 1.98 10*3/uL 0.83-4.51 [facility] Work Phone: Amorphous sediment detection in urine sediment by light microscopyon 01-02-2022 Amorphous sediment LM Ql (Urine sed) 1+ [facility] Work Phone: Comment on above: Previous reported re sult: R Edited by: DEMARIO on 01/02/22:0200 Basophil percentageon 2021 Basophil percentage 2.7 mg/dL 2.5-4.9 [facility] Work Phone: Basophils/100 WBC (Bld) 0.6 % 0-1 [facility] Work Phone: Bilirubin [Mass/Vol] 2.00 mg/dL 0.20-1.00 [facility] Work Phone: Comment on above: For patients on eltr ombopag therapy, use of Dimension [place] TBIL is not recommended. Chloride [Moles/Vol] 98 mmol/L 98-107 [facility] Work Phone: Eosinophils/100 WBC (Bld) 0.6 % 0-5 [facility] Work Phone: Glucose [Mass/Vol] 149 mg/dL 74-106 [facility] Work Phone: [phone] Comment on above: Fasting Glucose resu lt greater than or equal to 126 mg/dL suggests DIABETES MELLITUS per A.D.A. criteria. Neutrophils (Bld) [#/Vol] 7.7 10*3/uL 2.0-7.7 [facility] Work Phone: Neutrophils/100 WBC (Bld) 72.0 % 47-70 [facility] Work Phone: Potassium [Moles/Vol] 3.1 mmol/L 3.5-5.1 [facility] Work Phone: Protein [Mass/Vol] 8.3 g/dL 6.4-8.2 [facility] Work Phone: Sodium [Moles/Vol] 137 mmol/L 136-145 [facility] Work Phone: WBC (Bld) [#/Vol] 10.6 10*3/uL 4.4-11.0 [facility] Work Phone: Basophil percentage 0 SEEN /hpf 0-5 [facility] Work Phone: Bilirubin Test strip Ql (U)o n 01-02-2022 Bilirubin Ql (U) Negative Negative [facility] Work Phone: [phone] Blood erythrocytes count (nu mber/volume)on 01-02-2022 RBC (Bld) [#/Vol] 4.43 10*6/uL 4.6-6.2 [facility] Work Phone: [phone] Blood hemoglobin measurement (mass/volume)on 01-02-2022 Hemoglobin (Bld) [Mass/Vol] 16.0 g/dL 13.0-16.5 [facility] Work Phone: Blood lymphocytes/100 leukoc yteson 01-02-2022 Lymphocytes/100 WBC (Bld) 18.6 % 19-41 [facility] Work Phone: Blood monocytes/100 leukocyt eson 01-02-2022 Monocytes/100 WBC (Bld) 7.6 % 0-10 [facility] Work Phone: [phone] Blood platelet mean volumeon 01-02-2022 Platelet mean volume (Bld) [Entitic vol] 11.2 fL 6.2-12.0 [facility] Work Phone: Determination of erythrocyte mean corpuscular volume (MCV)on 01-02-2022 MCV (RBC) [Entitic vol] 105.9 fL 80-94 [facility] Work Phone: [phone] Hematocrit Auto (Bld) [Volum e fraction]on 01-02-2022 Hematocrit (Bld) [Volume fraction] 46.9 % 40-54 [facility] Work Phone: Ketones Test strip Ql (U)on 01-02-2022 Ketones Ql (U) Negative Negative [facility] Work Phone: Laboratory - Chemistry and C hemistry - challengeon 01-02-2022 ALP [Catalytic activity/Vol] 215 U/L 45-117 [facility] Work Phone: ALT [Catalytic activity/Vol] 33 U/L 16-61 [facility] Work Phone: CO2 [Moles/Vol] 28.0 mmol/L 21.0-32.0 [facility] Work Phone: [phone] Globulin (S) [Mass/Vol] 5.2 g/dL 2.2-4.2 [facility] Work Phone: [phone] Lipase [Catalytic activity/Vol] 81 U/L 73-393 [facility] Work Phone: [phone] Magnesium [Mass/Vol] 1.4 mg/dL 1.6-2.6 [facility] Work Phone: [phone] Urea nitrogen/Creatinine [Mass ratio] 4.0 mg/mg 10-20 [facility] Work Phone: Laboratory - Drug toxicology on 01-02-2022 Amphetamines Ql (U) Negative <1000 ng/mL [facility] Work Phone: Benzodiazepines Ql (U) Negative < 200 ng/mL [facility] Work Phone: Cannabinoids Screen Ql (U) Negative < 50 ng/mL [facility] Work Phone: Cocaine Ql (U) Negative < 300 ng/mL [facility] Work Phone: Opiates Ql (U) Negative < 300 ng/mL [facility] Work Phone: Laboratory - Hematology and Cell countson 01-02-2022 Erythrocyte distribution width (RBC) [Entitic vol] 62.8 fL 35.1-43.9 [facility] Work Phone: Erythrocyte distribution width (RBC) [Ratio] 15.9 % 11.6-14.6 [facility] Work Phone: Immature granulocytes/100 WBC (Bld) 0.600 % 0.0-0.9 [facility] Work Phone: Comment on above: IG% - Immature Granu locytes (promyelocytes, myelocytes and metamyelocytes) > 1% indicates that a LEFT SHIFT is Present. MCH (RBC) [Entitic mass] 36.1 pg 27.0-32.0 [facility] Work Phone: Nucleated RBC/100 WBC (Bld) [Ratio] 0 % 0-5 [facility] Work Phone: MCHC Auto (RBC) [Mass/Vol]on 01-02-2022 MCHC (RBC) [Mass/Vol] 34.1 g/dL 32-36 [facility] Work Phone: Mucus LM Ql (Urine sed)on Mucus Ql (Urine sed) 0 SEEN /hpf [facility] Work Phone: Nitrite Test strip Ql (U)on 01-02-2022 Nitrite Ql (U) Negative Negative [facility] Work Phone: No Panel Informationon 01-02 Estimated Creatinine Clearance Calc 134.75 ml/min [facility] Work Phone: Estimated GFR (MDRD) Amer 146 mL/min >60 [facility] Work Phone: Comment on above: GFR Calc Estimated GFR (MDRD) Non-Af Amer 121 mL/min >60 [facility] Work Phone: Comment on above: Non- GFR Calc Ethyl Alcohol Level 44.0 mg/dL [facility] Work Phone: Comment on above: The serum:whole bloo d ethanol ratio is approximately 1.14and varies slightly with hematocrit. Medical Alcohol reference interval and critical value innon-tolerant individuals; 50 - 100 Impairment 100 Intoxication 100 - 250 Severe Poisoning 250 - 400 Deep/possible fatal coma MDMA (Ecstasy) Screen Negative < 500 ng/mL [facility] Work Phone: Urine Barbiturates Screen Negative < 200 ng/mL [facility] Work Phone: Urine Drug Screen Comment [facility] Work Phone: Comment on above: CONFIRMATORY TESTING FOR ALL POSITIVE URINE DRUG SCREENRESULTS WILL ONLY BE SENT OUT UPON PHYSICIAN ORDER. VISTA Urine Drug Screen methods provide only preliminaryanalytical test results. A more specific alternate chemicalmethod must be used in order to obtain a confirmedanalytical result. Gas chromatography/mass spectrometery(GC/MS) is the preferred confirmatory method. Clinicalconsideration and professional judgement should be appliedto any drug of abuse test result, particularly whenpreliminary positive results are used. URINE TCA TESTING MUST BE ORDERED SEPARATELY. USE TESTMNEMONIC: FLCA Urine Methadone Screen Negative < 300 ng/mL [facility] Work Phone: Platelets bldon 01-02-2022 Platelets (Bld) [#/Vol] 174 10*3/uL 150-450 [facility] Work Phone: [phone] Protein Test strip Ql (U)on 01-02-2022 Protein Ql (U) Negative Negative [facility] Work Phone: Serum or plasma albumin betty urement (mass/volume)on 01-02-2022 Albumin [Mass/Vol] 3.1 g/dL 3.2-5.0 [facility] Work Phone: [phone] Serum or plasma albumin/glob ulin mass ratioon 01-02-2022 Albumin/Globulin [Mass ratio] 0.6 {ratio} 0.9-2.4 [facility] Work Phone: [phone] Serum or plasma calcium betty urement (mass/volume)on 01-02-2022 Calcium [Mass/Vol] 9.0 mg/dL 8.5-10.1 [facility] Work Phone: Serum or plasma creatinine m easurement (mass/volume)on 01-02-2022 Creatinine [Mass/Vol] 0.75 mg/dL 0.70-1.30 [facility] Work Phone: Comment on above: The validity of the calculated GFR & GFRAA in patients over 70 years has not been determined. Clinical correlation is essential. Serum or plasma urea nitroge n measurement (mass/volume)on 01-02-2022 Urea nitrogen [Mass/Vol] 3 mg/dL 7-18 [facility] Work Phone: Squamous epithelial cells de tection in urine sediment by light microscopyon 01-02-2022 Epithelial cells.squamous LM Ql (Urine sed) 0 SEEN /hpf 0-5 [facility] Work Phone: Thin prep Papanicolaou smear with manual screeningon 01-02-2022 Thin prep Papanicolaou smear with manual screening 89 U/L 15-37 [facility] Work Phone: Thin prep Papanicolaou smear with manual screening 11 5-15 [facility] Work Phone: Urine blood detectionon 12-24 RBC Ql (U) Negative Negative [facility] Work Phone: [phone] RBC Ql (U) 0 SEEN /hpf 0-5 [facility] Work Phone: [phone] Urine clarityon 01-02-2022 Clarity (U) Clear Clear [facility] Work Phone: Urine color determinationon 01-02-2022 Color (U) Yellow Yellow [facility] Work Phone: Urine glucose detectionon Glucose Ql (U) Normal mg/dl Normal [facility] Work Phone: Urine leukocyte esterase det ection by dipstickon 01-02-2022 Leukocyte esterase Test strip Ql (U) 25 /ul Negative [facility] Work Phone: Urine pHon 01-02-2022 pH (U) 7.0 [pH] 5.0 - 8.0 [facility] Work Phone: Urine phencyclidine (PCP) de tectionon 01-02-2022 Phencyclidine Ql (U) Negative < 25 ng/mL [facility] Work Phone: [phone] Urine sediment bacteria coun t by microscopy (number/high power field)on 01-02-2022 Bacteria LM.HPF (Urine sed) [#/Area] 1 /[HPF] None Seen [facility] Work Phone: Urine specific gravity measu rementon 01-02-2022 Specific gravity (U) [Rel density] 1.005 1.002-1.030 [facility] Work Phone: Urobilinogen Auto test strip Ql (U)on 01-02-2022 Urobilinogen Ql (U) 8 mg/dl Normal [facility] Work Phone: Absolute lymphocyte counton 12-03-2021 Lymphocytes Auto (Unsp spec) [#/Vol] 2.46 10*3/uL 0.83-4.51 [facility] Work Phone: Basophil percentageon 2021 Basophils/100 WBC (Bld) 0.9 % 0-1 [facility] Work Phone: Bilirubin [Mass/Vol] 0.80 mg/dL 0.20-1.00 [facility] Work Phone: Comment on above: For patients on eltr ombopag therapy, use of Dimension [place] TBIL is not recommended. Chloride [Moles/Vol] 105 mmol/L 98-107 [facility] Work Phone: Eosinophils/100 WBC (Bld) 0.8 % 0-5 [facility] Work Phone: Glucose [Mass/Vol] 143 mg/dL 74-106 [facility] Work Phone: Comment on above: Fasting Glucose resu lt greater than or equal to 126 mg/dL suggests DIABETES MELLITUS per A.D.A. criteria. Neutrophils (Bld) [#/Vol] 5.9 10*3/uL 2.0-7.7 [facility] Work Phone: Neutrophils/100 WBC (Bld) 62.9 % 47-70 [facility] Work Phone: Potassium [Moles/Vol] 3.5 mmol/L 3.5-5.1 [facility] Work Phone: Protein [Mass/Vol] 7.6 g/dL 6.4-8.2 [facility] Work Phone: Sodium [Moles/Vol] 140 mmol/L 136-145 [facility] Work Phone: WBC (Bld) [#/Vol] 9.3 10*3/uL 4.4-11.0 [facility] Work Phone: [phone] Blood erythrocytes count (nu mber/volume)on 12-03-2021 RBC (Bld) [#/Vol] 3.89 10*6/uL 4.6-6.2 [facility] Work Phone: [phone] Blood hemoglobin measurement (mass/volume)on 12-03-2021 Hemoglobin (Bld) [Mass/Vol] 13.4 g/dL 13.0-16.5 [facility] Work Phone: Blood lymphocytes/100 leukoc yteson 12-03-2021 Lymphocytes/100 WBC (Bld) 26.5 % 19-41 [facility] Work Phone: [phone] Blood manual differential co mment interpretation (narrative result)on 12-03-2021 Manual differential comment Milotn (Bld) [Interp] SCANNED [facility] Work Phone: Blood monocytes/100 leukocyt eson 12-03-2021 Monocytes/100 WBC (Bld) 8.0 % 0-10 [facility] Work Phone: Blood platelet mean volumeon 12-03-2021 Platelet mean volume (Bld) [Entitic vol] 9.7 fL 6.2-12.0 [facility] Work Phone: [phone] Determination of erythrocyte mean corpuscular volume (MCV)on 12-03-2021 MCV (RBC) [Entitic vol] 99.7 fL 80-94 [facility] Work Phone: Hematocrit Auto (Bld) [Volum e fraction]on 12-03-2021 Hematocrit (Bld) [Volume fraction] 38.8 % 40-54 [facility] Work Phone: [phone] Hypochromatic red blood cell detectionon 12-03-2021 Hypochromia Ql (Bld) 2+ [facility] Work Phone: [phone] INR in Blood by Coagulation assayon 12-03-2021 INR Coag (Bld) [Relative time] 1.1 {INR} [facility] Work Phone: [phone] Laboratory - Chemistry and C hemistry - challengeon 12-03-2021 ALP [Catalytic activity/Vol] 212 U/L 45-117 [facility] Work Phone: ALT [Catalytic activity/Vol] 51 U/L 16-61 [facility] Work Phone: CO2 [Moles/Vol] 25.0 mmol/L 21.0-32.0 [facility] Work Phone: Globulin (S) [Mass/Vol] 4.5 g/dL 2.2-4.2 [facility] Work Phone: [phone] Urea nitrogen/Creatinine [Mass ratio] 3.4 mg/mg 10-20 [facility] Work Phone: Laboratory - Coagulationon 1 aPTT Coag (Bld) [Time] 30.4 s 24.1-36.2 Wo [facility] Work Phone: PT Coag (PPP) [Time] 13.9 s 11.7-14.9 [facility] - Hematology and Cell countson 12-03-2021 Anisocytosis [facility]l (Bld) 2+ [facility]: Erythrocyte distribution width (RBC) [Entitic vol] 78.0 fL 35.1-43.9 [facility] Work Phone: Erythrocyte distribution width (RBC) [Ratio] 21.5 % 11.6-14.6 [facility] Work Phone: Immature granulocytes/100 WBC (Bld) 0.900 % 0.0-0.9 [facility] Work Phone: Comment on above: IG% - Immature Granu locytes (promyelocytes, myelocytes and metamyelocytes) > 1% indicates that a LEFT SHIFT is Present. MCH (RBC) [Entitic mass] 34.4 pg 27.0-32.0 [facility] Work Phone: Nucleated RBC/100 WBC (Bld) [Ratio] 0 % 0-5 [facility] Work Phone: MCHC Auto (RBC) [Mass/Vol]on 12-03-2021 MCHC (RBC) [Mass/Vol] 34.5 g/dL 32-36 [facility] Work Phone: No Panel Informationon 12-03 D-Dimer Quantitative (PE/DVT) 0.47 FEU/ug/m 0.27-0.49 [facility] Work Phone: Comment on above: NORMAL D-Dimer level (<0.50) indicates no DVT or PE. Estimated GFR (MDRD) Amer 196 mL/min >60 [facility] Work Phone: Comment on above: GFR Calc Estimated GFR (MDRD) Non-Af Amer 162 mL/min >60 [facility] Work Phone: Comment on above: Non- GFR Calc Platelets bldon 12-03-2021 Platelets (Bld) [#/Vol] 256 10*3/uL 150-450 [facility] Work Phone: Serum or plasma albumin betty urement (mass/volume)on 12-03-2021 Albumin [Mass/Vol] 3.1 g/dL 3.2-5.0 [facility] Work Phone: Serum or plasma albumin/glob ulin mass ratioon 12-03-2021 Albumin/Globulin [Mass ratio] 0.7 {ratio} 0.9-2.4 [facility] Work Phone: Serum or plasma calcium betty urement (mass/volume)on 12-03-2021 Calcium [Mass/Vol] 8.8 mg/dL 8.5-10.1 [facility] Work Phone: Serum or plasma creatinine m easurement (mass/volume)on 12-03-2021 Creatinine [Mass/Vol] 0.59 mg/dL 0.70-1.30 [facility] [place] Work Phone: Comment on above: The validity of the calculated GFR & GFRAA in patients over 70 years has not been determined. Clinical correlation is essential. Serum or plasma urea nitroge n measurement (mass/volume)on 12-03-2021 Urea nitrogen [Mass/Vol] 2 mg/dL 7-18 [facility] Work Phone: Target cell detectionon 10 Target cells LM Ql (Bld) RARE [facility] Work Phone: Thin prep Papanicolaou smear with manual screeningon 12-03-2021 Thin prep Papanicolaou smear with manual screening 103 U/L 15-37 [facility] Work Phone: Thin prep Papanicolaou smear with manual screening 10 5-15 [facility] Work Phone: Thin prep Papanicolaou smear with manual screening 170 U/L 87-241 [facility] Work Phone: Basophil percentageon 2021 Bilirubin [Mass/Vol] 1.60 mg/dL 0.20-1.00 [facility] Work Phone: Comment on above: For patients on eltr ombopag therapy, use of Dimension [place] TBIL is not recommended. Chloride [Moles/Vol] 101 mmol/L 98-107 [facility] Work Phone: Glucose [Mass/Vol] 111 mg/dL 74-106 [facility] Work Phone: Comment on above: Fasting Glucose resu lt from 100 to 125 mg/dL suggests IMPAIRED HOMEOSTASIS per A.D.A. criteria. Potassium [Moles/Vol] 4.5 mmol/L 3.5-5.1 [facility] [place] Work Phone: Protein [Mass/Vol] 6.9 g/dL 6.4-8.2 [facility] Work Phone: Sodium [Moles/Vol] 135 mmol/L 136-145 [facility] Work Phone: Laboratory - Chemistry and C hemistry - challengeon 11-22-2021 ALP [Catalytic activity/Vol] 188 U/L 45-117 [facility] Work Phone: ALT [Catalytic activity/Vol] 78 U/L 16-61 [facility] Work Phone: CO2 [Moles/Vol] 27.0 mmol/L 21.0-32.0 [facility] Work Phone: Globulin (S) [Mass/Vol] 4.2 g/dL 2.2-4.2 [facility] Work Phone: Magnesium [Mass/Vol] 1.6 mg/dL 1.6-2.6 [facility]: Urea nitrogen/Creatinine [Mass ratio] 9.1 mg/mg 10-20 [facility] Work Phone: No Panel Informationon 11-22 Estimated Creatinine Clearance Calc 125.55 ml/min [facility] Work Phone: Estimated GFR (MDRD) Amer 143 mL/min >60 [facility] Work Phone: Comment on above: GFR Calc Estimated GFR (MDRD) Non-Af Amer 118 mL/min >60 [facility] Work Phone: Comment on above: Non- GFR Calc Serum or plasma albumin betty urement (mass/volume)on 11-22-2021 Albumin [Mass/Vol] 2.7 g/dL 3.2-5.0 [facility] Work Phone: Serum or plasma albumin/glob ulin mass ratioon 11-22-2021 Albumin/Globulin [Mass ratio] 0.6 {ratio} 0.9-2.4 [facility] Work Phone: Serum or plasma calcium betty urement (mass/volume)on 11-22-2021 Calcium [Mass/Vol] 8.9 mg/dL 8.5-10.1 [facility] Work Phone: Serum or plasma creatinine m easurement (mass/volume)on 11-22-2021 Creatinine [Mass/Vol] 0.77 mg/dL 0.70-1.30 [facility] [place] Work Phone: Comment on above: The validity of the calculated GFR & GFRAA in patients over 70 years has not been determined. Clinical correlation is essential. Serum or plasma urea nitroge n measurement (mass/volume)on 11-22-2021 Urea nitrogen [Mass/Vol] 7 mg/dL 7-18 [facility] Work Phone: Thin prep Papanicolaou smear with manual screeningon 11-22-2021 Thin prep Papanicolaou smear with manual screening 195 U/L 15-37 [facility] Work Phone: Thin prep Papanicolaou smear with manual screening 7 5-15 [facility] Work Phone: Basophil percentageon 2021 Basophil percentage 0 SEEN /hpf 0-5 [facility] Work Phone: Basophil percentage 2.9 mg/dL 2.5-4.9 [facility] Work Phone: Bilirubin Test strip Ql (U)o n 11-21-2021 Bilirubin Ql (U) Negative Negative [facility] Work Phone: Ketones Test strip Ql (U)on 11-21-2021 Ketones Ql (U) Negative Negative [facility] Work Phone: Mucus LM Ql (Urine sed)on Mucus Ql (Urine sed) 0 SEEN /hpf [facility] [place] Work Phone: Nitrite Test strip Ql (U)on 11-21-2021 Nitrite Ql (U) Negative Negative [facility] Work Phone: Protein Test strip Ql (U)on 11-21-2021 Protein Ql (U) Negative Negative [facility] Work Phone: Squamous epithelial cells de tection in urine sediment by light microscopyon 11-21-2021 Epithelial cells.squamous LM Ql (Urine sed) 0 SEEN /hpf 0-5 [facility] Work Phone: Urine blood detectionon 10-25 RBC Ql (U) 25 /ul Negative [facility] Work Phone: [phone] RBC Ql (U) 0-5 SEEN /hpf 0-5 [facility] Work Phone: Urine clarityon 11-21-2021 Clarity (U) Clear Clear [facility] Work Phone: Urine color determinationon 11-21-2021 Color (U) Yellow Yellow [facility] Work Phone: Urine glucose detectionon Glucose Ql (U) Normal mg/dl Normal [facility] Work Phone: [phone] Urine leukocyte esterase det ection by dipstickon 11-21-2021 Leukocyte esterase Test strip Ql (U) Negative Negative [facility] Work Phone: [phone] Urine pHon 11-21-2021 pH (U) 8.0 [pH] 5.0 - 8.0 [facility] Work Phone: Urine sediment bacteria coun t by microscopy (number/high power field)on 11-21-2021 Bacteria LM.HPF (Urine sed) [#/Area] 0 /[HPF] None Seen [facility] Work Phone: Urine specific gravity measu rementon 11-21-2021 Specific gravity (U) [Rel density] 1.015 1.002-1.030 [facility] Work Phone: Urobilinogen Auto test strip Ql (U)on 11-21-2021 Urobilinogen Ql (U) 8 mg/dl Normal [facility] Work Phone: Absolute lymphocyte counton 11-19-2021 Lymphocytes Auto (Unsp spec) [#/Vol] 2.19 10*3/uL 0.83-4.51 [facility] Work Phone: [phone] Basophil percentageon 2021 Basophils/100 WBC (Bld) 0.3 % 0-1 [facility] Work Phone: Bilirubin [Mass/Vol] 3.50 mg/dL 0.20-1.00 [facility] Work Phone: Comment on above: For patients on eltr ombopag therapy, use of Dimension [place] TBIL is not recommended. Chloride [Moles/Vol] 89 mmol/L 98-107 [facility] Work Phone: Eosinophils/100 WBC (Bld) 0.4 % 0-5 [facility] Work Phone: [phone] Glucose [Mass/Vol] 101 mg/dL 74-106 [facility] Work Phone: [phone] Comment on above: Fasting Glucose resu lt from 100 to 125 mg/dL suggests IMPAIRED HOMEOSTASIS per A.D.A. criteria. Neutrophils (Bld) [#/Vol] 6.9 10*3/uL 2.0-7.7 [facility] Work Phone: [phone] Neutrophils/100 WBC (Bld) 66.8 % 47-70 [facility] Work Phone: [phone] Potassium [Moles/Vol] 2.5 mmol/L 3.5-5.1 [facility] [place] Work Phone: Comment on above: Critical Result(s) C alled at: 21:23:51 11/19/2021 by: VASILE STEINER TO GIANNA DELUCA. Results read back by same. Protein [Mass/Vol] 8.2 g/dL 6.4-8.2 [facility] Work Phone: [phone] Sodium [Moles/Vol] 134 mmol/L 136-145 [facility] Work Phone: [phone] WBC (Bld) [#/Vol] 10.3 10*3/uL 4.4-11.0 [facility] Work Phone: [phone] Blood erythrocytes count (nu mber/volume)on 11-19-2021 RBC (Bld) [#/Vol] 4.66 10*6/uL 4.6-6.2 [facility] Work Phone: [phone] Blood hemoglobin measurement (mass/volume)on 11-19-2021 Hemoglobin (Bld) [Mass/Vol] 15.3 g/dL 13.0-16.5 [facility] Work Phone: [phone] Blood lymphocytes/100 leukoc yteson 11-19-2021 Lymphocytes/100 WBC (Bld) 21.3 % 19-41 [facility] Work Phone: Blood monocytes/100 leukocyt eson 11-19-2021 Monocytes/100 WBC (Bld) 10.9 % 0-10 [facility] Work Phone: Blood platelet adequacy dete ction by light microscopyon 11-19-2021 Platelets LM Ql (Bld) [facility]: Blood platelet mean volumeon 11-19-2021 Platelet mean volume (Bld) [Entitic vol] 10.5 fL 6.2-12.0 [facility] Work Phone: [phone] Determination of erythrocyte mean corpuscular volume (MCV)on 11-19-2021 MCV (RBC) [Entitic vol] 93.6 fL 80-94 [facility] Work Phone: Hematocrit Auto (Bld) [Volum e fraction]on 11-19-2021 Hematocrit (Bld) [Volume fraction] 43.6 % 40-54 [facility] Work Phone: INR in Blood by Coagulation assayon 11-19-2021 INR Coag (Bld) [Relative time] 1.1 {INR} [facility] Work Phone: Laboratory - Chemistry and C hemistry - challengeon 11-19-2021 ALP [Catalytic activity/Vol] 201 U/L 45-117 [facility] Work Phone: ALT [Catalytic activity/Vol] 70 U/L 16-61 [facility] Work Phone: CO2 [Moles/Vol] 31.0 mmol/L 21.0-32.0 [facility] Work Phone: Globulin (S) [Mass/Vol] 4.9 g/dL 2.2-4.2 [facility] Work Phone: Lipase [Catalytic activity/Vol] 93 U/L 73-393 [facility] Work Phone: [phone] Urea nitrogen/Creatinine [Mass ratio] 9.9 mg/mg 10-20 [facility] Work Phone: Laboratory - Coagulationon 0 11-19-2021 aPTT Coag (Bld) [Time] 31.1 s 24.1-36.2 [facility] Work Phone: [phone] PT Coag (PPP) [Time] 13.6 s 11.7-14.9 [facility] Work Phone: Laboratory - Drug toxicology on 11-19-2021 Amphetamines Ql (U) Negative <1000 ng/mL [facility] Work Phone: Benzodiazepines Ql (U) Negative < 200 ng/mL [facility] Work Phone: Cannabinoids Screen Ql (U) Negative < 50 ng/mL [facility] Work Phone: Cocaine Ql (U) Negative < 300 ng/mL [facility] Work Phone: Opiates Ql (U) Negative < 300 ng/mL [facility] Work Phone: Laboratory - Hematology and Cell countson 11-19-2021 Anisocytosis Ql (Bld) 1+ [facility] [place] Work Phone: Erythrocyte distribution width (RBC) [Entitic vol] 72.5 fL 35.1-43.9 [facility] Work Phone: [phone] Erythrocyte distribution width (RBC) [Ratio] 22.0 % 11.6-14.6 [facility] Work Phone: [phone] Immature granulocytes/100 WBC (Bld) 0.300 % 0.0-0.9 [facility] Work Phone: Comment on above: IG% - Immature Granu locytes (promyelocytes, myelocytes and metamyelocytes) > 1% indicates that a LEFT SHIFT is Present. MCH (RBC) [Entitic mass] 32.8 pg 27.0-32.0 [facility] Work Phone: [phone] Nucleated RBC/100 WBC (Bld) [Ratio] 0.2 % 0-5 [facility] Work Phone: [phone] MCHC Auto (RBC) [Mass/Vol]on 11-19-2021 MCHC (RBC) [Mass/Vol] 35.1 g/dL 32-36 [facility] [place] Work Phone: Macrocytes detectionon 11-19 Macrocytes Ql (Bld) RARE [facility] Work Phone: No Panel Informationon 11-19 Estimated Creatinine Clearance Calc 120.84 ml/min [facility] Work Phone: Estimated GFR (MDRD) Amer 136 mL/min >60 [facility] Work Phone: Comment on above: GFR Calc Estimated GFR (MDRD) Non-Af Amer 112 mL/min >60 [facility] Work Phone: Comment on above: Non- GFR Calc Ethyl Alcohol Level 175.0 mg/dL [facility] Work Phone: Comment on above: The serum:whole bloo d ethanol ratio is approximately 1.14and varies slightly with hematocrit. Medical Alcohol reference interval and critical value innon-tolerant individuals; 50 - 100 Impairment 100 Intoxication 100 - 250 Severe Poisoning 250 - 400 Deep/possible fatal coma MDMA (Ecstasy) Screen Negative < 500 ng/mL [facility] Work Phone: Urine Barbiturates Screen Negative < 200 ng/mL [facility] Work Phone: Urine Drug Screen Comment [facility] Work Phone: Comment on above: CONFIRMATORY TESTING FOR ALL POSITIVE URINE DRUG SCREENRESULTS WILL ONLY BE SENT OUT UPON PHYSICIAN ORDER. VISTA Urine Drug Screen methods provide only preliminaryanalytical test results. A more specific alternate chemicalmethod must be used in order to obtain a confirmedanalytical result. Gas chromatography/mass spectrometery(GC/MS) is the preferred confirmatory method. Clinicalconsideration and professional judgement should be appliedto any drug of abuse test result, particularly whenpreliminary positive results are used. URINE TCA TESTING MUST BE ORDERED SEPARATELY. USE TESTMNEMONIC: [facility] Urine Methadone Screen Negative < 300 ng/mL [facility] Work Phone: Platelets bldon 11-19-2021 Platelets (Bld) [#/Vol] 122 10*3/uL 150-450 [facility] Work Phone: RBC morphologyon 11-19-2021 RBC morphology finding Nom (Bld) N CHROM NORMAL NORM C&C [facility] Work Phone: [phone] Serum or plasma albumin betty urement (mass/volume)on 11-19-2021 Albumin [Mass/Vol] 3.3 g/dL 3.2-5.0 [facility] Work Phone: [phone] Serum or plasma albumin/glob ulin mass ratioon 11-19-2021 Albumin/Globulin [Mass ratio] 0.7 {ratio} 0.9-2.4 [facility] Work Phone: Serum or plasma calcium betty urement (mass/volume)on 11-19-2021 Calcium [Mass/Vol] 8.9 mg/dL 8.5-10.1 [facility] Work Phone: Serum or plasma creatinine m easurement (mass/volume)on 11-19-2021 Creatinine [Mass/Vol] 0.80 mg/dL 0.70-1.30 [facility] [place] Work Phone: Comment on above: The validity of the calculated GFR & GFRAA in patients over 70 years has not been determined. Clinical correlation is essential. Serum or plasma urea nitroge n measurement (mass/volume)on 11-19-2021 Urea nitrogen [Mass/Vol] 8 mg/dL 7-18 [facility] Work Phone: Thin prep Papanicolaou smear with manual screeningon 11-19-2021 Thin prep Papanicolaou smear with manual screening 147 U/L 15-37 [facility] Work Phone: Thin prep Papanicolaou smear with manual screening 14 5-15 [facility] Work Phone: Urine phencyclidine (PCP) de tectionon 11-19-2021 Phencyclidine Ql (U) Negative < 25 ng/mL [facility] Work Phone: Absolute lymphocyte counton 11-11-2021 Lymphocytes Auto (Unsp spec) [#/Vol] 2.02 10*3/uL 0.83-4.51 [facility] Work Phone: Basophil percentageon 2021 Basophils/100 WBC (Bld) 0.7 % 0-1 [facility] Work Phone: Bilirubin [Mass/Vol] 2.30 mg/dL 0.20-1.00 [facility] Work Phone: Comment on above: For patients on eltr ombopag therapy, use of Dimension [place] TBIL is not recommended. Chloride [Moles/Vol] 98 mmol/L 98-107 [facility] Work Phone: Eosinophils/100 WBC (Bld) 0.4 % 0-5 [facility] Work Phone: Glucose [Mass/Vol] 108 mg/dL 74-106 [facility] Work Phone: Comment on above: Fasting Glucose resu lt from 100 to 125 mg/dL suggests IMPAIRED HOMEOSTASIS per A.D.A. criteria. Neutrophils (Bld) [#/Vol] 5.3 10*3/uL 2.0-7.7 [facility] Work Phone: Neutrophils/100 WBC (Bld) 64.6 % 47-70 [facility] Work Phone: Potassium [Moles/Vol] 3.0 mmol/L 3.5-5.1 [facility] [place] Work Phone: Protein [Mass/Vol] 7.9 g/dL 6.4-8.2 [facility] Work Phone: Sodium [Moles/Vol] 139 mmol/L 136-145 [facility] Work Phone: WBC (Bld) [#/Vol] 8.1 10*3/uL 4.4-11.0 [facility] Work Phone: Blood erythrocytes count (nu mber/volume)on 11-11-2021 RBC (Bld) [#/Vol] 5.01 10*6/uL 4.6-6.2 [facility] Work Phone: Blood hemoglobin measurement (mass/volume)on 11-11-2021 Hemoglobin (Bld) [Mass/Vol] 16.3 g/dL 13.0-16.5 [facility] Work Phone: Blood lymphocytes/100 leukoc yteson 11-11-2021 Lymphocytes/100 WBC (Bld) 24.9 % 19-41 [facility] Work Phone: Blood manual differential co mment interpretation (narrative result)on 11-11-2021 Manual differential comment [place] (Bld) [Interp] SCANNED [facility] Work Phone: Blood monocytes/100 leukocyt eson 11-11-2021 Monocytes/100 WBC (Bld) 9.0 % 0-10 [facility] Work Phone: Blood platelet mean volumeon 11-11-2021 Platelet mean volume (Bld) [Entitic vol] 11.0 fL 6.2-12.0 [facility] Work Phone: Determination of erythrocyte mean corpuscular volume (MCV)on 11-11-2021 MCV (RBC) [Entitic vol] 91.8 fL 80-94 [facility] Work Phone: Glucose Glucometer (BldC) [M ass/Vol]on 11-11-2021 Glucose [Mass/Vol] 113 mg/dL 74-106 [facility] Work Phone: Comment on above: MANAGEMENT OF PATIEN T CARE PER NURSING PROTOCOL Hematocrit Auto (Bld) [Volum e fraction]on 11-11-2021 Hematocrit (Bld) [Volume fraction] 46.0 % 40-54 [facility] Work Phone: Laboratory - Chemistry and C hemistry - challengeon 11-11-2021 ALP [Catalytic activity/Vol] 234 U/L 45-117 [facility] Work Phone: ALT [Catalytic activity/Vol] 94 U/L 16-61 [facility] Work Phone: CO2 [Moles/Vol] 31.0 mmol/L 21.0-32.0 [facility] Work Phone: Globulin (S) [Mass/Vol] 4.9 g/dL 2.2-4.2 [facility] Work Phone: Lipase [Catalytic activity/Vol] 122 U/L 73-393 [facility] Work Phone: Urea nitrogen/Creatinine [Mass ratio] 5.2 mg/mg 10-20 [facility] Work Phone: Laboratory - Hematology and Cell countson 11-11-2021 Anisocytosis Ql (Bld) 2+ [facility] [place] Work Phone: [phone] Erythrocyte distribution width (RBC) [Entitic vol] 74.6 fL 35.1-43.9 [facility] Work Phone: [phone] Erythrocyte distribution width (RBC) [Ratio] 23.2 % 11.6-14.6 [facility] Work Phone: [phone] Immature granulocytes/100 WBC (Bld) 0.400 % 0.0-0.9 [facility] Work Phone: [phone] Comment on above: IG% - Immature Granu locytes (promyelocytes, myelocytes and metamyelocytes) > 1% indicates that a LEFT SHIFT is Present. MCH (RBC) [Entitic mass] 32.5 pg 27.0-32.0 [facility] Work Phone: [phone] Nucleated RBC/100 WBC (Bld) [Ratio] 0 % 0-5 [facility] Work Phone: MCHC Auto (RBC) [Mass/Vol]on 11-11-2021 MCHC (RBC) [Mass/Vol] 35.4 g/dL 32-36 [facility] [place] Work Phone: [phone] Macrocytes detectionon 11-11 [facility] Ql (Bld) 1+ [facility]: [phone] No Panel Informationon 11-11 Troponin I High Sensitivity 5 pg/mL 3.0-78.0 [facility] Work Phone: Comment on above: Please Note: [place] Units and Gender Specific Reference Ranges. For more information see Policy Stat Procedure [place] High Sensitivity Troponin (TNIH) and attachments. Estimated Creatinine Clearance Calc 133.65 ml/min [facility] Work Phone: Estimated GFR (MDRD) Amer 143 mL/min >60 [facility] Work Phone: Comment on above: GFR Calc Estimated GFR (MDRD) Non-Af Amer 118 mL/min >60 [facility] Work Phone: Comment on above: Non- GFR Calc Ethyl Alcohol Level 279.0 mg/dL [facility] Work Phone: Comment on above: The serum:whole bloo d ethanol ratio is approximately 1.14and varies slightly with hematocrit. Medical Alcohol reference interval and critical value innon-tolerant individuals; 50 - 100 Impairment 100 Intoxication 100 - 250 Severe Poisoning 250 - 400 Deep/possible fatal coma Troponin I High Sensitivity 4 pg/mL 3.0-78.0 [facility] Work Phone: Comment on above: Please Note: [place] Units and Gender Specific Reference Ranges. For more information see Policy Stat Procedure [place] High Sensitivity Troponin (TNIH) and attachments. Platelets bldon 11-11-2021 Platelets (Bld) [#/Vol] 125 10*3/uL 150-450 [facility] Work Phone: Serum or plasma albumin betty urement (mass/volume)on 11-11-2021 Albumin [Mass/Vol] 3.0 g/dL 3.2-5.0 [facility] Work Phone: Serum or plasma albumin/glob ulin mass ratioon 11-11-2021 Albumin/Globulin [Mass ratio] 0.6 {ratio} 0.9-2.4 [facility] Work Phone: Serum or plasma calcium betty urement (mass/volume)on 11-11-2021 Calcium [Mass/Vol] 8.7 mg/dL 8.5-10.1 [facility] Work Phone: Serum or plasma creatinine m easurement (mass/volume)on 11-11-2021 Creatinine [Mass/Vol] 0.77 mg/dL 0.70-1.30 [facility] [place] Work Phone: Comment on above: The validity of the calculated GFR & GFRAA in patients over 70 years has not been determined. Clinical correlation is essential. Serum or plasma urea nitroge n measurement (mass/volume)on 11-11-2021 Urea nitrogen [Mass/Vol] 4 mg/dL 7-18 [facility] Work Phone: Thin prep Papanicolaou smear with manual screeningon 11-11-2021 Thin prep Papanicolaou smear with manual screening 1+ [facility] Work Phone: Thin prep Papanicolaou smear with manual screening 241 U/L 15-37 [facility] Work Phone: Thin prep Papanicolaou smear with manual screening 10 5-15 [facility] Work Phone: Basophil percentageon 2021 Chloride [Moles/Vol] 101 mmol/L 98-107 [facility] Work Phone: Glucose [Mass/Vol] 115 mg/dL 74-106 [facility] Work Phone: Comment on above: Fasting Glucose resu lt from 100 to 125 mg/dL suggests IMPAIRED HOMEOSTASIS per A.D.A. criteria. Potassium [Moles/Vol] 3.1 mmol/L 3.5-5.1 [facility] [place] Work Phone: Sodium [Moles/Vol] 137 mmol/L 136-145 [facility] Work Phone: WBC (Bld) [#/Vol] 9.1 10*3/uL 4.4-11.0 [facility] Work Phone: Blood erythrocytes count (nu mber/volume)on 08-14-2021 RBC (Bld) [#/Vol] 5.39 10*6/uL 4.6-6.2 [facility] Work Phone: Blood hemoglobin measurement (mass/volume)on 08-14-2021 Hemoglobin (Bld) [Mass/Vol] 16.8 g/dL 13.0-16.5 [facility] Work Phone: Blood platelet mean volumeon 08-14-2021 Platelet mean volume (Bld) [Entitic vol] 11.4 fL 6.2-12.0 [facility] Work Phone: Determination of erythrocyte mean corpuscular volume (MCV)on 08-14-2021 MCV (RBC) [Entitic vol] 94.4 fL 80-94 [facility] Work Phone: Dilute Marito's viper venom timeon 08-14-2021 dRVVT Coag (PPP) [Time] 45.2 s 0.0-47.0 [facility] Work Phone: Functional protein C measure menton 08-14-2021 Protein C actual/normal Chromogenic method (PPP) [Rel catalytic activity/Vol] 44 % 73-180 [facility] Work Phone: Comment on above: A deficiency of prot ein C (PC), either congenital oracquired, increases the risk of thromboembolism. AcquiredPC deficiency occurs more frequently than congenitaldeficiency. PC levels can be transiently diminished after athrombotic event or surgery or in the presence of certainanticoagulants. Heparin, direct Xa inhibitor, or thromboticinhibitor therapy does not alter PC levels physiologicallyand does not interfere with this assay because it ischromogenic and clot-based. Vitamin K antagonist therapymay decrease plasma levels of functional protein C (PC) asPC is a vitamin K-dependent protein. Vitamin K deficiency,due to dietary insufficiency or malabsorption will alsolead to reduced PC levels. Acquired deficiency can befound in individuals with disseminated intravascularcoagulation (DIC) and sepsis. Severe hepatic disorders(hepatitis, cirrhosis, etc.), nephrotic syndrome,malignancy and inflammatory bowel disease can lead todiminished PC levels. Drug therapy with L-asparaginse orfluorouracil can also reduce PC levels. Levels may bedecreased in patients with polycythemia vera, sickle celldisease and essential thrombocythemia. Repeat evaluation keny new plasma sample to confirm or refute this result shouldbe considered, after ruling out acquired causes, dependingon the clinical scenario. Protein C actual/normal Chromogenic method (PPP) [Rel catalytic activity/Vol] Not Reportable [facility] Work Phone: [phone] Hematocrit Auto (Bld) [Volum e fraction]on 08-14-2021 Hematocrit (Bld) [Volume fraction] 50.9 % 40-54 [facility] Work Phone: [phone] INR in Blood by Coagulation assayon 08-14-2021 INR Coag (Bld) [Relative time] 1.3 {INR} [facility] Work Phone: [phone] Laboratory - Chemistry and C hemistry - challengeon 08-14-2021 CO2 [Moles/Vol] 31.0 mmol/L 21.0-32.0 [facility] Work Phone: Natriuretic peptide B (Bld) [Mass/Vol] 8.3 pg/mL 0-100 [facility] Work Phone: [phone] Urea nitrogen/Creatinine [Mass ratio] 2.5 mg/mg 10-20 [facility] Work Phone: Laboratory - Coagulationon 0 08-14-2021 PT Coag (PPP) [Time] 15.6 s 11.7-14.9 [facility] Work Phone: [phone] Laboratory - Hematology and Cell countson 08-14-2021 Erythrocyte distribution width (RBC) [Entitic vol] 48.6 fL 35.1-43.9 [facility] Work Phone: Erythrocyte distribution width (RBC) [Ratio] 14.2 % 11.6-14.6 [facility] Work Phone: MCH (RBC) [Entitic mass] 31.2 pg 27.0-32.0 [facility] Work Phone: MCHC Auto (RBC) [Mass/Vol]on 08-14-2021 MCHC (RBC) [Mass/Vol] 33.0 g/dL 32-36 [facility] Work Phone: No Panel Informationon 08-14 Anti-Cardiolipin IgM Antibody 28 MPL U/mL 0-12 [facility] Work Phone: Comment on above: Negative: <13 Indete rminate: 13 - 20 Low-Med Positive: >20 - 80 High Positive: >80 CA 19-9 Antigen 12 U/mL 0-35 [facility] Work Phone: Comment on above: [facility] El ectrochemiluminescence Immunoassay(ECLIA)Values obtained with different assay methods or kits cannotbe used interchangeably. Results cannot be interpreted asabsolute evidence of the presence or absence of malignantdisease.Performed at: [facility] [id number] Director: Manuel Mosqueda PhD, Phone: [phone] Factor V Leiden Mutation Comment . [facility] Work Phone: Comment on above: Result: c.1601G>A (p .[id number]) - Not DetectedThis result is not associated with an increased risk for venousthromboembolism. See Additional Clinical Information andComments.Additional Clinical Information:Venous thromboembolism is a multifactorial diseaseinfluenced by genetic, environmental, and circumstantialrisk factors. The c.1601G>A (p. [id number]) variant in theF5 gene, commonly referred to as Factor V Leiden, is agenetic risk factor for venous thromboembolism.Heterozygous carriers of this variant have a 6- to 8-foldincreased risk for venous thromboembolism. Individualshomozygous for this variant (ie, with a copy of the varianton each chromosome) have an approximately 80-fold increasedrisk for venous thromboembolism. Individuals who carry annalise c.*97G>A variant in the F2 gene and Factor V Leiden havean approximately 20-fold increased risk for venousthromboembolism. Risks are likely to be even higher in morecomplex genotype combinations involving the F2 c.*97G>Avariant and Factor V Leiden (PMID: 97384221). Additionalrisk factors include but are not limited to: deficiency ofprotein C, protein S, or antithrombin III, age, male sex,personal or family history of deep vein thromboembolism,smoking, surgery, prolonged immobilization, malignantneoplasm, tamoxifen treatment, raloxifene treatment, oralcontraceptive use, hormone replacement therapy, andpregnancy. Management of thrombotic risk and thromboticevents should follow established guidelines and fit theclinical circumstance. This result cannot predict theoccurrence or recurrence of a thrombotic event.Comment:Genetic counseling is recommended to discuss thepotential clinical implications of positive results, aswell as recommendations for testing family members.Genetic Coordinators are available for health careproviders to discuss results at [phone] Details:Variant Analyzed: c.1601G>A (p. [id number]), referred toas Factor V LeidenMethods/Limitations:DNA analysis of the F5 gene (NM_000130.5) was performedby PCR amplification followed by restriction enzymeanalysis. The diagnostic sensitivity is >99%. Results mustbe combined with clinical information for the most accurateinterpretation. Molecular-based testing is highly accurate,but as in any laboratory test, diagnostic errors may occur.False positive or false negative results may occur forreasons that include genetic variants, blood transfusions,bone marrow transplantation, somatic or tissue-specificmosaicism, mislabeled samples, or erroneous representationof family relationships.This test was developed and its performance characteristicsdetermined by [facility]. It has not been cleared orapproved by the Food and Drug Administration.References:Roshni Vizcarra, Carmen SEWELL, Xu R, Andres WW, Gume JH; ACMGProfessional Practice and Guidelines Committee. Addendum:[employer] consensus statement onfactor V Leiden mutation testing. [employer]. 2020Apr 27.doi: 10.1038/[id number]-z. PMID: 60806792.Celia RAGLAND. Factor V Leiden Thrombophilia. 1998July 06[Updated 2017Feb 26]. In: Alvaro MP, Theodore HH, Santhosh RA,et al., editors. Astrid(R) [Internet]. [place] ([place]):[facility]; 7709-2900. Availablefrom: https://www.ncbi.nlm.nih.gov/books/AVT5672/Jay Vizcarra, Carmen SEWELL, Yovani X, Sam B, Sunny RODRIGUEZ, Nahed P,Estrada CS; [facility] Laboratory Fence Manufacture Supervisor Committee.Venous thromboembolism laboratory testing (factor V Leidenand factor II c.*97G>A), 2018 update: a technical standardof the [employer] and [employer]omics(ACMG). [employer]. 2018 Jan;20(12):2096-4327. doi:10.1038/[id number]-x. Epub 2017Nov 27. PMID: 44480639.Carmen Barraza, PhD, Blanche Collins, PhD, Pema Pineda, PhD, Eli Ocasio, PhD, FACANGELES Gomez, PhD, Susanna Rivers, PhD, Monika Rodas, PhD, [facility] Hexagonal Phase Phospholipid 4 sec 0-11 [facility] Work Phone: Miscellaneous Test See comment [facility] Work Phone: Comment on above: TEST RESULT LIMITSBe ta-2 Glycoprotein I Ab,G/MBeta-2 Glycoprotein I Ab, IgG <9 GPI IgG units 0-20Please Note: The reference interval reflects a 3SD or 99th percentile interval, which is thought to represent a potentially clinically significant result in accordance with the International Consensus Statement on the classification criteria for definitive antiphospholipid syndrome(APS). J Thromb Haem 2006;4:295-306.Beta-2 Glycoprotein I Ab, IgM <9 GPI IgM units 0-32Please Note: The reference interval reflects a 3SD or 99th percentile interval, which is thought to represent a potentially clinically significant result in accordance with the International Consensus Statement on the classification criteria for definitive antiphospholipid syndrome(APS). J Thromb Haem 2006;4:295-306. TESTING PERFORMED AT [facility]. ORIGINAL REPORT ON FILE IN LAB CONTAINS ADDITIONAL TEST SITE INFORMATION. Activated Protein C Resistance 2.6 ratio 2.2-3.5 [facility] Work Phone: Comment on above: The APCR result may be falsely increased (masking anabnormal, low APCR result) in patients on direct Xainhibitor (e.g., rivaroxaban, apixaban, edoxaban) or adirect thrombin inhibitor (e.g., dabigatran) anticoagulanttherapy due to assay interference by these drugs.Performed at: [facility] [id number] Director: Wendy Rosado MD, Phone: [phone] Estimated Creatinine Clearance Calc 130.26 ml/min [facility] Work Phone: Estimated GFR (MDRD) Amer 140 mL/min >60 [facility] Work Phone: Comment on above: GFR Calc Estimated GFR (MDRD) Non-Af Amer 115 mL/min >60 [facility] Work Phone: Comment on above: Non- GFR Calc Troponin I High Sensitivity < 3 pg/mL 3.0-78.0 [facility] Work Phone: Comment on above: Please Note: [place] t Units and Gender Specific Reference Ranges. For more information see Policy Stat Procedure [place] High Sensitivity Troponin (TNIH) and attachments. Platelet poor plasma antithr ombin actual/normal ratio by chromogenic method (relativeon 08-14-2021 Antithrombin actual/normal Chromogenic method (PPP) [Rel catalytic activity/Vol] 85 % 75-135 [facility] Work Phone: Comment on above: Direct Xa inhibitor anticoagulants such as rivaroxaban,apixaban and edoxaban will lead to spuriously elevatedantithrombin activity levels possibly masking a deficiency.Performed at: [facility] [address] [id number] Director: Wendy Rosado MD, Phone: [phone] at: [employer] [employer] [place], [place] [id number] Director: Manuel Mosqueda PhD, Phone: [phone] at: [facility] [id number] [place], [place] [id number] Director: Jean-Pierre Putnam [facility], Phone: [phone] Platelet poor plasma protein S actual/normal ratio (relative time)on 08-14-2021 Protein S actual/normal Coag (PPP) [Relative time] 104 % 63-140 [facility] Work Phone: Comment on above: Protein S activity m ay be falsely increased (masking anabnormal, low result) in patients receiving direct Xainhibitor (e.g., rivaroxaban, apixaban, edoxaban) or adirect thrombin inhibitor (e.g., dabigatran) anticoagulanttreatment due to assay interference by these drugs. Platelets bldon 08-14-2021 Platelets (Bld) [#/Vol] 129 10*3/uL 150-450 [facility] Work Phone: Protein C antigen assayon Protein C Ag actual/normal IA (PPP) [Relative mass conc] 42 % 60-150 [facility] Work Phone: Comment on above: A deficiency of prot ein C (PC), either congenital oracquired, increases the risk of thromboembolism. Congenitaldeficiencies of PC are very rare; acquired PC deficiency ismuch more common. PC levels can be transiently diminishedafter an acute thrombotic event. Oral anticoagulant therapywith warfarin will lower PC levels as well as vitamin Kdeficiency. Acquired deficiency can also occur inindividuals with disseminated intravascular coagulation(DIC), sepsis, severe liver disease, nephrotic syndrome,and in inflammatory bowel disease. Levels may be spuriouslydecreased in individuals with Factor V Leiden. Drug therapywith L-asparaginse, fluorouracil, methotrexate,cyclophosphamide or tamoxifen can also reduce PC levels.It has been suggested that repeat blood sampling andtesting after ruling out acquired causes of deficiencyshould be performed before the patient is diagnosed withcongenital Protein C deficiency. Protein S measurement in fredy telet poor plasma by coagulation assay (units/volume)on 06-22-2022 Protein S Coag Qn (PPP) 98 % 60-150 [facility] Work Phone: Comment on above: This test was develo ped and its performance characteristicsdetermined by [facility]. It has not been cleared orapproved by the Food and Drug Administration. Protein S, freeon 08-14-2021 Protein S Free Ag IA Qn (PPP) 121 % 61-136 [facility] Work Phone: Serum cardiolipin IgG antibo dy assay by immunoassay (units/volume)on 08-14-2021 Cardiolipin IgG IA Qn (S) < 9 GPL U/mL 0-14 [facility] Work Phone: Comment on above: Negative: <15 Indete rminate: 15 - 20 Low-Med Positive: >20 - 80 High Positive: >80 Serum or plasma calcium betty urement (mass/volume)on 08-14-2021 Calcium [Mass/Vol] 8.8 mg/dL 8.5-10.1 [facility] Work Phone: Serum or plasma carcinoembry onic antigen measurement (mass/volume)on 08-14-2021 Carcinoembryonic Ag [Mass/Vol] 6.5 ng/mL 0.0-4.7 [facility] Work Phone: Comment on above: Nonsmokers <3.9 Smok ers <5.6[facility] Electrochemiluminescence Immunoassay(ECLIA)Values obtained with different assay methods or kitscannot be used interchangeably. Results cannot beinterpreted as absolute evidence of the presence orabsence of malignant disease. Serum or plasma cardiolipin IgA antibody assay (units/volume)on 08-14-2021 Cardiolipin IgA Qn < 9 APL U/mL 0-11 [facility] Work Phone: Comment on above: Negative: <12 Indete rminate: 12 - 20 Low-Med Positive: >20 - 80 High Positive: >80 Serum or plasma creatinine m easurement (mass/volume)on 08-14-2021 Creatinine [Mass/Vol] 0.79 mg/dL 0.70-1.30 [facility] Work Phone: Comment on above: The validity of the calculated GFR & GFRAA in patients over 70 years has not been determined. Clinical correlation is essential. Serum or plasma urea nitroge n measurement (mass/volume)on 08-14-2021 Urea nitrogen [Mass/Vol] 2 mg/dL 7-18 [facility] Work Phone: Thin prep Papanicolaou smear with manual screeningon 08-14-2021 Thin prep Papanicolaou smear with manual screening 48.6 sec 0.0-47.6 [facility] Work Phone: Thin prep Papanicolaou smear with manual screening 1.08 Ratio 0.00-1.34 [facility] Work Phone: Thin prep Papanicolaou smear with manual screening 109.9 sec 0.0-51.9 [facility] Work Phone: Thin prep Papanicolaou smear with manual screening 60.2 sec 0.0-48.9 [facility] Work Phone: Thin prep Papanicolaou smear with manual screening Comment: . [facility] Work Phone: Comment on above: No lupus anticoagula nt was detected. Results suggest the presence of aninhibitor. The presence of heparin, which is a non-specific inhibitor, maycause this pattern of results. Since the PTT-LA was extended and the dRVVTwas within normal limits, a specific inhibitor to factor VIII, IX, XI, orXII cannot be excluded. The dPT was extended but the dPT confirmatory ratiowas normal. This is consistent with a deficiency or specific inhibition ofone or more extrinsic pathway factors (VII, X, V, II or fibrinogen). Asantibody titers may fluctuate with time, repeat testing may be indicatedand ideally should be performed in the absence of anticoagulant therapy. Thin prep Papanicolaou smear with manual screening 5 5-15 [facility] Work Phone: Thrombin time in platelet po or plasmaon 08-14-2021 Thrombin time Coag (PPP) [Time] 17.8 sec 0.0-23.0 [facility] Work Phone: Absolute lymphocyte counton 07-26-2021 Lymphocytes Auto (Unsp spec) [#/Vol] 2.29 10*3/uL 0.83-4.51 [facility] Work Phone: Basophil percentageon 2021 Ammonia (P) [Moles/Vol] 21.0 umol/L 11-32 [facility] Work Phone: Basophil percentage < 0.2 AI 0.0-0.9 [facility]: Basophils/100 WBC (Bld) 0.6 % 0-1 [facility] Work Phone: Bilirubin [Mass/Vol] 0.70 mg/dL 0.20-1.00 [facility] Work Phone: Comment on above: For patients on eltr ombopag therapy, use of Dimension [place] TBIL is not recommended. Chloride [Moles/Vol] 106 mmol/L 98-107 [facility] Work Phone: Eosinophils/100 WBC (Bld) 1.8 % 0-5 [facility] Work Phone: Glucose [Mass/Vol] 92 mg/dL 74-106 [facility] Work Phone: Neutrophils (Bld) [#/Vol] 8.9 10*3/uL 2.0-7.7 [facility] Work Phone: Neutrophils/100 WBC (Bld) 72.8 % 47-70 [facility] Work Phone: Potassium [Moles/Vol] 3.7 mmol/L 3.5-5.1 [facility] Work Phone: Protein [Mass/Vol] 7.7 g/dL 6.4-8.2 [facility] Work Phone: Sodium [Moles/Vol] 139 mmol/L 136-145 [facility] Work Phone: WBC (Bld) [#/Vol] 12.2 10*3/uL 4.4-11.0 [facility] Work Phone: [phone] Blood erythrocytes count (nu mber/volume)on 07-26-2021 RBC (Bld) [#/Vol] 4.68 10*6/uL 4.6-6.2 [facility] Work Phone: [phone] Blood hemoglobin measurement (mass/volume)on 07-26-2021 Hemoglobin (Bld) [Mass/Vol] 15.2 g/dL 13.0-16.5 [facility] Work Phone: Blood lymphocytes/100 leukoc yteson 07-26-2021 Lymphocytes/100 WBC (Bld) 18.8 % 19-41 [facility] Work Phone: Blood monocytes/100 leukocyt eson 07-26-2021 Monocytes/100 WBC (Bld) 5.8 % 0-10 [facility] Work Phone: Blood platelet mean volumeon 07-26-2021 Platelet mean volume (Bld) [Entitic vol] 10.8 fL 6.2-12.0 [facility] Work Phone: [phone] Determination of erythrocyte mean corpuscular volume (MCV)on 07-26-2021 MCV (RBC) [Entitic vol] 98.1 fL 80-94 [facility] Work Phone: [phone] Erythrocyte sedimentation ra prasanth 07-26-2021 ESR (Bld) [Velocity] 13 mm/h 0-20 [facility]: [phone] HIV 1 and HIV-2 antibody ass ay with HIV-1 p24 antigen detectionon 07-26-2021 HIV 1+2 Ab+HIV1 p24 Ag IA Ql Non-Reactive Nonreactive [facility] Work Phone: [phone] Hematocrit Auto (Bld) [Volum e fraction]on 07-26-2021 Hematocrit (Bld) [Volume fraction] 45.9 % 40-54 [facility] Work Phone: [phone] INR in Blood by Coagulation assayon 07-26-2021 INR Coag (Bld) [Relative time] 1.1 {INR} [facility] Work Phone: Laboratory - Chemistry and C hemistry - challengeon 07-26-2021 ALP [Catalytic activity/Vol] 119 U/L 45-117 [facility] Work Phone: [phone] ALT [Catalytic activity/Vol] 15 U/L 16-61 [facility] Work Phone: CO2 [Moles/Vol] 29.0 mmol/L 21.0-32.0 [facility] Work Phone: [phone] Globulin (S) [Mass/Vol] 4.4 g/dL 2.2-4.2 [facility] Work Phone: [phone] Urea nitrogen/Creatinine [Mass ratio] 9.8 mg/mg 10-20 [facility] Work Phone: [phone] Laboratory - Coagulationon 0 07-26-2021 PT Coag (PPP) [Time] 13.7 s 11.7-14.9 [facility] Work Phone: [phone] Laboratory - Hematology and Cell countson 07-26-2021 Erythrocyte distribution width (RBC) [Entitic vol] 50.4 fL 35.1-43.9 [facility] Work Phone: [phone] Erythrocyte distribution width (RBC) [Ratio] 14.1 % 11.6-14.6 [facility] Work Phone: [phone] Immature granulocytes/100 WBC (Bld) 0.200 % 0.0-0.9 [facility] Work Phone: Comment on above: IG% - Immature Granu locytes (promyelocytes, myelocytes and metamyelocytes) > 1% indicates that a LEFT SHIFT is Present. MCH (RBC) [Entitic mass] 32.5 pg 27.0-32.0 [facility] Work Phone: [phone] Nucleated RBC/100 WBC (Bld) [Ratio] 0 % 0-5 [facility] Work Phone: [phone] MCHC Auto (RBC) [Mass/Vol]on 07-26-2021 MCHC (RBC) [Mass/Vol] 33.1 g/dL 32-36 [facility] Work Phone: No Panel Informationon 07-26 Centromere B Antibody 0.2 AI 0.0-0.9 [facility] Work Phone: Ceruloplasmin See comment [facility] Work Phone: Comment on above: TEST RESULT LIMITSCe ruloplasmin 29.5 mg/dL 16.0-31.0 [facility] ORIGINAL REPORT ON FILE IN LAB CONTAINS ADDITIONAL TEST SITE INFORMATION. Estimated GFR (MDRD) Amer 156 mL/min >60 [facility] Work Phone: Comment on above: GFR Calc Estimated GFR (MDRD) Non-Af Amer 129 mL/min >60 [facility] Work Phone: Comment on above: Non- GFR Calc Haptoglobin See comment [facility] Work Phone: Comment on above: TEST RESULT LIMITSHa ptoglobin 122 mg/dL 23-355 __ [facility] ORIGINAL REPORT ON FILE IN LAB CONTAINS ADDITIONAL TEST SITE INFORMATION. Hepatitis A IgM Antibody See comment [facility] Work Phone: Comment on above: TEST RESULT LIMITSAc mohegan HepatitisHep A Ab, IgM Negative NegativeHBsAg Screen Negative NegativeHep B Core Ab, IgM Negative NegativeHCV Ab 0.1 s/co ratio 0.0-0.9Interpretation: NegativeNot infected with HCV, unless recent infection is suspected or other evidence exists to indicate HCV infection. [facility] ORIGINAL REPORT ON FILE IN LAB CONTAINS ADDITIONAL TEST SITE INFORMATION. Hepatitis B Core IgM Antibody Not Reportable [facility] Work Phone: Hepatitis C Antibody Non-Reactive Nonreactive [facility] Work Phone: Comment on above: Non Reactive: < 0.8 Equivocal: >/= 0.8 to < 1.0 Reactive: >/= 1.0The CDC recommends that a reactive/equivocal HCV antibody result be followed up by the HCV Nucleic Acid Amplificationtest (702432) Hepatitis C Antibody (EIA) Not Reportable [facility] Work Phone: Hepatitis C Genotype See comment [facility] Work Phone: Comment on above: TEST RESULT LIMITSHC V RT-PCR, Quant (Non-Graph)Hepatitis C Quantitation HCV Not Detected IU/mLTest Information: The quantitative range of this assay is 15 IU/mL to 100 million IU/mL. __ TESTING PERFORMED AT [facility]. ORIGINAL REPORT ON FILE IN LAB CONTAINS ADDITIONAL TEST SITE INFORMATION. BEEF PUSHER Antibody 0.3 AI 0.0-0.9 [facility] Work Phone: Platelets bldon 07-26-2021 Platelets (Bld) [#/Vol] 234 10*3/uL 150-450 [facility] Work Phone: Serum DNA double strand anti body assay (units/volume)on 07-26-2021 DNA double strand Ab Qn (S) 3 [IU]/mL 0-9 [facility] Work Phone: Comment on above: Negative <5 Equivoca l 5 - 9 Positive >9 Serum Trisha-1 antibody assay (u nits/volume)on 07-26-2021 Trisha-1 extractable nuclear Ab Qn (S) <0.2 AI 0.0-0.9 [facility] Work Phone: Serum Scl-70 extractable nuc lear antibody assay (units/volume)on 07-26-2021 SCL-70 extractable nuclear Ab Qn (S) <0.2 AI 0.0-0.9 [facility] Work Phone: Serum Snider extractable nucl ear antibody detectionon 07-26-2021 Snider extractable nuclear Ab Ql (S) <0.2 AI 0.0-0.9 [facility] Work Phone: Serum classic neutrophil cyt oplasmic antibody assay (units/volume)on 07-26-2021 Neutrophil cytoplasmic Ab.classic Qn (S) See comment [facility] Work Phone: Comment on above: TEST RESULT LIMITSAn tineutrophil Cytoplasmic AbCytoplasmic (C-ANCA) <1:20 titer Neg:<1:20Perinuclear (P-ANCA) <1:20 titer Neg:<1:20The presence of positive fluorescence exhibiting P-ANCA or C-ANCA patterns alone is not specific for the diagnosis of Mary's Granulomatosis (WG) or microscopic polyangiitis. Decisions about treatment should not be based solely on ANCA IFA results. The International ANCA Group Consensus recommends follow up testing of positive sera with both LA-3 and MPO-ANCA enzyme immunoassays. As many as 5% serum samples are positive only by EIA.Ref. AM J Clin Pathol 1999;111:507-513.Atypical pANCA <1:20 titer Neg:<1:20The atypical pANCA pattern has been observed in a significant percentage of patients with ulcerative colitis, primary sclerosing cholangitis and autoimmune hepatitis. TESTING PERFORMED AT [facility]. ORIGINAL REPORT ON FILE IN LAB CONTAINS ADDITIONAL TEST SITE INFORMATION. Serum mitochondria antibody detectionon 07-26-2021 Mitochondria Ab Ql (S) <20.0 Units 0.0-20.0 [facility] Work Phone: Comment on above: Negative 0.0 - 20.0 Equivocal 20.1 - 24.9 Positive >24.9Mitochondrial (M2) Antibodies are found in 90-96% ofpatients with primary biliary cirrhosis.Performed at: [facility] [id number] Director: Manuel Mosqueda PhD, Phone: [phone] Serum or plasma C reactive p rotein measurement (mass/volume)on 07-26-2021 CRP [Mass/Vol] 6.20 mg/L 0.0-3.0 [facility] Work Phone: Comment on above: C-Reactive Protein ( CRP) provides useful information for thediagnosis, therapy and monitoring of inflammatory processesand associated diseases. For the evaluation of Relative Riskfor Cardiovascular Disease, a High Sensitivity CRP (HSCRP)should be ordered. Serum or plasma actin IgG an tibody assay (units/volume)on 07-26-2021 Actin IgG Qn See comment [facility] Work Phone: Comment on above: TEST RESULT LIMITSAc tin (Smooth Muscle) AntibodyActin (Smooth Muscle)Antibody 6 Units 0-19 Negative 0 - 19 Weak positive 20 - 30 Moderate to strong positive >30 Actin Antibodies are found in 52-85% of patients with autoimmune hepatitis or chronic active hepatitis and in 22% of patients with primary biliary cirrhosis. TESTING PERFORMED AT [facility]. ORIGINAL REPORT ON FILE IN LAB CONTAINS ADDITIONAL TEST SITE INFORMATION. Serum or plasma albumin betty urement (mass/volume)on 07-26-2021 Albumin [Mass/Vol] 3.3 g/dL 3.2-5.0 [facility] Work Phone: Serum or plasma albumin/glob ulin mass ratioon 07-26-2021 Albumin/Globulin [Mass ratio] 0.8 {ratio} 0.9-2.4 [facility] Work Phone: Serum or plasma [id number] protein tumor marker measurement (units/volume)on 07-26-2021 AFP.tumor marker Qn See comment [facility] Work Phone: Comment on above: TEST RESULT LIMITSAF P, Serum, Tumor Marker 2.9 ng/mL 0.0-6.9[employer] Electrochemiluminescence Immunoassay (ECLIA)Values obtained with different assay methods or kits cannot be used interchangeably. Results cannot be interpreted as absolute evidence of the presence or absence of malignant disease.This test is not interpretable in females. ____ [facility] ORIGINAL REPORT ON FILE IN LAB CONTAINS ADDITIONAL TEST SITE INFORMATION. Serum or plasma angiotensin converting enzyme measurement (enzymatic activity/volume)on 07-26-2021 Angiotensin converting enzyme [Catalytic activity/Vol] See comment [facility] Work Phone: Comment on above: TEST RESULT LIMITSCe ruloplasmin 29.5 mg/dL 16.0-31.0 [facility] ORIGINAL REPORT ON FILE IN LAB CONTAINS ADDITIONAL TEST SITE INFORMATION. Serum or plasma calcium betty urement (mass/volume)on 07-26-2021 Calcium [Mass/Vol] 8.9 mg/dL 8.5-10.1 [facility] Work Phone: Serum or plasma creatinine m easurement (mass/volume)on 07-26-2021 Creatinine [Mass/Vol] 0.71 mg/dL 0.70-1.30 [facility] Work Phone: Comment on above: The validity of the calculated GFR & GFRAA in patients over 70 years has not been determined. Clinical correlation is essential. Serum or plasma ferritin jose alejandro surement (mass/volume)on 07-26-2021 Ferritin [Mass/Vol] 52 ng/mL 26-388 [facility] Work Phone: Serum or plasma hepatitis B virus surface antigen detection by immunoassayon 07-26-2021 HBV surface Ag IA Ql Not Reportable [facility] Work Phone: Serum or plasma hepatitis C virus RNA measurement by probe and target amplification mon 07-26-2021 HCV RNA ULI+probe Qn See comment [facility] [place] Work Phone: Comment on above: TEST RESULT LIMITSHe patitis C Genotype Test not performed. We are unable to determine the genotype and/or phenotype of this sample due to insufficient viral copy number. Samples with low viral loads will often fail PCR amplification. TESTING PERFORMED AT [facility]. ORIGINAL REPORT ON FILE IN LAB CONTAINS ADDITIONAL TEST SITE INFORMATION. Serum or plasma urea nitroge n measurement (mass/volume)on 07-26-2021 Urea nitrogen [Mass/Vol] 7 mg/dL 7-18 [facility] Work Phone: Serum perinuclear neutrophil cytoplasmic antibody titer by immunofluorescenceon 07-26-2021 Neutrophil cytoplasmic Ab.perinuclear IF (S) [Titer] Not Reportable [facility] Work Phone: Thin prep Papanicolaou smear with manual screeningon 07-26-2021 Thin prep Papanicolaou smear with manual screening 23 U/L 15-37 [facility] Work Phone: Thin prep Papanicolaou smear with manual screening 4 5-15 [facility] Work Phone: Thin prep Papanicolaou smear with manual screening 144 U/L 87-241 [facility] Work Phone: Thin prep Papanicolaou smear with manual screening See comment [facility] Work Phone: Comment on above: TEST RESULT LIMITSCo pper, Serum or Plasma A, 116 ug/dL 69-132 Detection Limit = 5 TESTING PERFORMED AT [facility]. ORIGINAL REPORT ON FILE IN LAB CONTAINS ADDITIONAL TEST SITE INFORMATION. Whole blood hemoglobin A1c/t otal hemoglobin ratio (mass fraction)on 07-26-2021 HbA1c (Bld) [Mass fraction] 4.6 % 3.8-5.6 [facility] Work Phone: Comment on above: Normal < 5.7 % Predi abetic 5.7 - 6.4 % Diabetic >or= 6.5 % Please note range changes. Basophil percentageon 2021 Basophil percentage 4.2 mg/dL 2.5-4.9 [facility] Work Phone: Laboratory - Chemistry and C hemistry - challengeon 05-16-2021 Magnesium [Mass/Vol] 1.3 mg/dL 1.6-2.6 [facility] Work Phone: Absolute lymphocyte counton 05-15-2021 Lymphocytes Auto (Unsp spec) [#/Vol] 2.57 10*3/uL 0.83-4.51 [facility] Work Phone: Basophil percentageon 2021 Basophils/100 WBC (Bld) 0.5 % 0-1 [facility] Work Phone: Bilirubin [Mass/Vol] 0.70 mg/dL 0.20-1.00 [facility] Work Phone: Comment on above: For patients on eltr ombopag therapy, use of Dimension [place] TBIL is not recommended. Chloride [Moles/Vol] 102 mmol/L 98-107 [facility] Work Phone: Eosinophils/100 WBC (Bld) 1.0 % 0-5 [facility] Work Phone: Glucose [Mass/Vol] 97 mg/dL 74-106 [facility] Work Phone: Neutrophils (Bld) [#/Vol] 7.8 10*3/uL 2.0-7.7 [facility] Work Phone: Neutrophils/100 WBC (Bld) 67.1 % 47-70 [facility] Work Phone: Potassium [Moles/Vol] 3.1 mmol/L 3.5-5.1 [facility]: Protein [Mass/Vol] 7.8 g/dL 6.4-8.2 [facility] Work Phone: Sodium [Moles/Vol] 139 mmol/L 136-145 [facility] Work Phone: WBC (Bld) [#/Vol] 11.6 10*3/uL 4.4-11.0 [facility] Work Phone: Blood erythrocytes count (nu mber/volume)on 05-15-2021 RBC (Bld) [#/Vol] 4.02 10*6/uL 4.6-6.2 [facility] Work Phone: Blood hemoglobin measurement (mass/volume)on 05-15-2021 Hemoglobin (Bld) [Mass/Vol] 15.3 g/dL 13.0-16.5 [facility] Work Phone: Blood lymphocytes/100 leukoc yteson 05-15-2021 Lymphocytes/100 WBC (Bld) 22.3 % 19-41 [facility] Work Phone: Blood monocytes/100 leukocyt eson 05-15-2021 Monocytes/100 WBC (Bld) 8.6 % 0-10 [facility] Work Phone: Blood platelet mean volumeon 05-15-2021 Platelet mean volume (Bld) [Entitic vol] 10.1 fL 6.2-12.0 [facility] Work Phone: Determination of erythrocyte mean corpuscular volume (MCV)on 05-15-2021 MCV (RBC) [Entitic vol] 106.7 fL 80-94 [facility] Work Phone: [phone] Hematocrit Auto (Bld) [Volum e fraction]on 05-15-2021 Hematocrit (Bld) [Volume fraction] 42.9 % 40-54 [facility] Work Phone: [phone] INR in Blood by Coagulation assayon 05-15-2021 INR Coag (Bld) [Relative time] 1.2 {INR} [facility] Work Phone: [phone] Laboratory - Chemistry and C hemistry - challengeon 05-15-2021 ALP [Catalytic activity/Vol] 256 U/L 45-117 [facility] Work Phone: [phone] ALT [Catalytic activity/Vol] 39 U/L 16-61 [facility] Work Phone: [phone] Amylase [Catalytic activity/Vol] 926 U/L 15-85 [facility] Work Phone: [phone] CO2 [Moles/Vol] 25.0 mmol/L 21.0-32.0 [facility] Work Phone: [phone] Globulin (S) [Mass/Vol] 4.8 g/dL 2.2-4.2 [facility] Work Phone: [phone] Lipase [Catalytic activity/Vol] 62 U/L 73-393 [facility] Work Phone: [phone] Urea nitrogen/Creatinine [Mass ratio] 5.0 mg/mg 10-20 [facility] Work Phone: [phone] Laboratory - Coagulationon 0 05-15-2021 PT Coag (PPP) [Time] 14.2 s 11.7-14.9 [facility] Work Phone: [phone] Laboratory - Drug toxicology on 05-15-2021 Amphetamines Ql (U) Negative <1000 ng/mL [facility] Work Phone: [phone] Benzodiazepines Ql (U) Negative < 200 ng/mL [facility] Work Phone: Cannabinoids Screen Ql (U) Negative < 50 ng/mL [facility] Work Phone: Cocaine Ql (U) Negative < 300 ng/mL [facility] Work Phone: Opiates Ql (U) Negative < 300 ng/mL [facility] Work Phone: Laboratory - Hematology and Cell countson 05-15-2021 Erythrocyte distribution width (RBC) [Entitic vol] 51.0 fL 35.1-43.9 [facility] Work Phone: Erythrocyte distribution width (RBC) [Ratio] 12.9 % 11.6-14.6 [facility] Work Phone: Immature granulocytes/100 WBC (Bld) 0.500 % 0.0-0.9 [facility] Work Phone: Comment on above: IG% - Immature Granu locytes (promyelocytes, myelocytes and metamyelocytes) > 1% indicates that a LEFT SHIFT is Present. MCH (RBC) [Entitic mass] 38.1 pg 27.0-32.0 [facility] Work Phone: Nucleated RBC/100 WBC (Bld) [Ratio] 0 % 0-5 [facility] Work Phone: MCHC Auto (RBC) [Mass/Vol]on 05-15-2021 MCHC (RBC) [Mass/Vol] 35.7 g/dL 32-36 [facility] Work Phone: No Panel Informationon 05-15 MDMA (Ecstasy) Screen Negative < 500 ng/mL [facility] Work Phone: Urine Barbiturates Screen Positive < 200 ng/mL [facility] Work Phone: Urine Drug Screen Comment [facility] Work Phone: Comment on above: CONFIRMATORY TESTING FOR ALL POSITIVE URINE DRUG SCREENRESULTS WILL ONLY BE SENT OUT UPON PHYSICIAN ORDER. VISTA Urine Drug Screen methods provide only preliminaryanalytical test results. A more specific alternate chemicalmethod must be used in order to obtain a confirmedanalytical result. Gas chromatography/mass spectrometery(GC/MS) is the preferred confirmatory method. Clinicalconsideration and professional judgement should be appliedto any drug of abuse test result, particularly whenpreliminary positive results are used. URINE TCA TESTING MUST BE ORDERED SEPARATELY. USE TESTMNEMONIC: [facility] Urine Methadone Screen Negative < 300 ng/mL [facility] Work Phone: Estimated Creatinine Clearance Calc 171.19 ml/min [facility] Work Phone: Estimated GFR (MDRD) Amer 192 mL/min >60 [facility] Work Phone: Comment on above: GFR Calc Estimated GFR (MDRD) Non-Af Amer 158 mL/min >60 [facility] Work Phone: Comment on above: Non- GFR Calc Ethyl Alcohol Level 120.0 mg/dL [facility] Work Phone: Comment on above: The serum:whole bloo d ethanol ratio is approximately 1.14and varies slightly with hematocrit. Medical Alcohol reference interval and critical value innon-tolerant individuals; 50 - 100 Impairment 100 Intoxication 100 - 250 Severe Poisoning 250 - 400 Deep/possible fatal coma Platelets bldon 05-15-2021 Platelets (Bld) [#/Vol] 246 10*3/uL 150-450 [facility] Work Phone: Serum or plasma albumin betty urement (mass/volume)on 05-15-2021 Albumin [Mass/Vol] 3.0 g/dL 3.2-5.0 [facility] Work Phone: Serum or plasma albumin/glob ulin mass ratioon 05-15-2021 Albumin/Globulin [Mass ratio] 0.6 {ratio} 0.9-2.4 [facility] Work Phone: Serum or plasma calcium betty urement (mass/volume)on 05-15-2021 Calcium [Mass/Vol] 9.0 mg/dL 8.5-10.1 [facility] Work Phone: Serum or plasma creatinine m easurement (mass/volume)on 05-15-2021 Creatinine [Mass/Vol] 0.60 mg/dL 0.70-1.30 [facility] Work Phone: Comment on above: The validity of the calculated GFR & GFRAA in patients over 70 years has not been determined. Clinical correlation is essential. Serum or plasma urea nitroge n measurement (mass/volume)on 05-15-2021 Urea nitrogen [Mass/Vol] 3 mg/dL 7-18 [facility] Work Phone: Thin prep Papanicolaou smear with manual screeningon 05-15-2021 Thin prep Papanicolaou smear with manual screening 103 U/L 15-37 [facility] Work Phone: Thin prep Papanicolaou smear with manual screening 12 5-15 [facility] Work Phone: Urine phencyclidine (PCP) de tectionon 05-15-2021 Phencyclidine Ql (U) Negative < 25 ng/mL [facility] Work Phone: Basophil percentageon 2021 Bilirubin [Mass/Vol] 1.00 mg/dL 0.20-1.00 [facility] Work Phone: Comment on above: For patients on eltr ombopag therapy, use of Dimension [place] TBIL is not recommended. Chloride [Moles/Vol] 101 mmol/L 98-107 [facility] Work Phone: Glucose [Mass/Vol] 92 mg/dL 74-106 [facility] Work Phone: Potassium [Moles/Vol] 3.9 mmol/L 3.5-5.1 [facility] [place] Work Phone: Protein [Mass/Vol] 6.3 g/dL 6.4-8.2 [facility] Work Phone: Sodium [Moles/Vol] 134 mmol/L 136-145 [facility] Work Phone: Laboratory - Chemistry and C hemistry - challengeon 04-29-2021 ALP [Catalytic activity/Vol] 195 U/L 45-117 [facility] Work Phone: ALT [Catalytic activity/Vol] 43 U/L 16-61 [facility] Work Phone: CO2 [Moles/Vol] 29.0 mmol/L 21.0-32.0 [facility] Work Phone: Globulin (S) [Mass/Vol] 4.1 g/dL 2.2-4.2 [facility] Work Phone: Urea nitrogen/Creatinine [Mass ratio] 15.0 mg/mg 10-20 [facility] Work Phone: No Panel Informationon 04-29 Estimated Creatinine Clearance Calc 189.46 ml/min [facility] Work Phone: Estimated GFR (MDRD) Amer 219 mL/min >60 [facility] Work Phone: Comment on above: GFR Calc Estimated GFR (MDRD) Non-Af Amer 181 mL/min >60 [facility] Work Phone: Comment on above: Non- GFR Calc Serum or plasma albumin betty urement (mass/volume)on 04-29-2021 Albumin [Mass/Vol] 2.2 g/dL 3.2-5.0 [facility] Work Phone: Serum or plasma albumin/glob ulin mass ratioon 04-29-2021 Albumin/Globulin [Mass ratio] 0.5 {ratio} 0.9-2.4 [facility] Work Phone: Serum or plasma calcium betty urement (mass/volume)on 04-29-2021 Calcium [Mass/Vol] 8.2 mg/dL 8.5-10.1 [facility] Work Phone: Serum or plasma creatinine m easurement (mass/volume)on 04-29-2021 Creatinine [Mass/Vol] 0.53 mg/dL 0.70-1.30 [facility] [place] Work Phone: Comment on above: The validity of the calculated GFR & GFRAA in patients over 70 years has not been determined. Clinical correlation is essential. Serum or plasma urea nitroge n measurement (mass/volume)on 04-29-2021 Urea nitrogen [Mass/Vol] 8 mg/dL 7-18 [facility] Work Phone: Thin prep Papanicolaou smear with manual screeningon 04-29-2021 Thin prep Papanicolaou smear with manual screening 127 U/L 15-37 [facility] Work Phone: Thin prep Papanicolaou smear with manual screening 4 5-15 [facility] Work Phone: Absolute lymphocyte counton 04-26-2021 Lymphocytes Auto (Unsp spec) [#/Vol] 1.28 10*3/uL 0.83-4.51 [facility] Work Phone: Basophil percentageon 2021 Basophils/100 WBC (Bld) 0.3 % 0-1 [facility] Work Phone: Eosinophils/100 WBC (Bld) 0.0 % 0-5 [facility] Work Phone: Neutrophils (Bld) [#/Vol] 9.7 10*3/uL 2.0-7.7 [facility] Work Phone: Neutrophils/100 WBC (Bld) 80.7 % 47-70 [facility] Work Phone: WBC (Bld) [#/Vol] 12.1 10*3/uL 4.4-11.0 [facility] Work Phone: Basophil percentage 0-5 SEEN /hpf 0-5 [facility] Work Phone: [phone] Bilirubin Test strip Ql (U)o n 04-26-2021 Bilirubin Ql (U) 1 mg/dL Negative [facility] Work Phone: [phone] Comment on above: COLOR OF URINE MAY A FFECT DIPSTICK RESULTS. Blood erythrocytes count (nu mber/volume)on 04-26-2021 RBC (Bld) [#/Vol] 4.20 10*6/uL 4.6-6.2 [facility] Work Phone: Blood hemoglobin measurement (mass/volume)on 04-26-2021 Hemoglobin (Bld) [Mass/Vol] 16.5 g/dL 13.0-16.5 [facility] Work Phone: Blood lymphocytes/100 leukoc yteson 04-26-2021 Lymphocytes/100 WBC (Bld) 10.6 % 19-41 [facility] Work Phone: Blood monocytes/100 leukocyt eson 04-26-2021 Monocytes/100 WBC (Bld) 8.0 % 0-10 [facility] Work Phone: Blood platelet mean volumeon 04-26-2021 Platelet mean volume (Bld) [Entitic vol] 11.3 fL 6.2-12.0 [facility] Work Phone: Determination of erythrocyte mean corpuscular volume (MCV)on 04-26-2021 MCV (RBC) [Entitic vol] 109.0 fL 80-94 [facility] Work Phone: Hematocrit Auto (Bld) [Volum e fraction]on 04-26-2021 Hematocrit (Bld) [Volume fraction] 45.8 % 40-54 [facility] Work Phone: Ketones Test strip Ql (U)on 04-26-2021 Ketones Ql (U) Negative Negative [facility] Work Phone: Laboratory - Chemistry and C hemistry - challengeon 04-26-2021 Lipase [Catalytic activity/Vol] 179 U/L 73-393 [facility] Work Phone: Laboratory - Drug toxicology on 04-26-2021 Amphetamines Ql (U) Negative <1000 ng/mL [facility] Work Phone: Benzodiazepines Ql (U) Negative < 200 ng/mL [facility] Work Phone: Cannabinoids Screen Ql (U) Negative < 50 ng/mL [facility] Work Phone: Cocaine Ql (U) Negative < 300 ng/mL [facility] Work Phone: Opiates Ql (U) Negative < 300 ng/mL [facility] Work Phone: Laboratory - Hematology and Cell countson 04-26-2021 Erythrocyte distribution width (RBC) [Entitic vol] 51.6 fL 35.1-43.9 [facility] Work Phone: Erythrocyte distribution width (RBC) [Ratio] 12.9 % 11.6-14.6 [facility] Work Phone: Immature granulocytes/100 WBC (Bld) 0.400 % 0.0-0.9 [facility] Work Phone: Comment on above: IG% - Immature Granu locytes (promyelocytes, myelocytes and metamyelocytes) > 1% indicates that a LEFT SHIFT is Present. MCH (RBC) [Entitic mass] 39.3 pg 27.0-32.0 [facility] Work Phone: Nucleated RBC/100 WBC (Bld) [Ratio] 0 % 0-5 [facility] Work Phone: MCHC Auto (RBC) [Mass/Vol]on 04-26-2021 MCHC (RBC) [Mass/Vol] 36.0 g/dL 32-36 [facility] Work Phone: Mucus LM Ql (Urine sed)on Mucus Ql (Urine sed) 1+ /hpf [facility] Work Phone: Nitrite Test strip Ql (U)on 04-26-2021 Nitrite Ql (U) Negative Negative [facility] Work Phone: No Panel Informationon 04-26 Ethyl Alcohol Level 72.0 mg/dL [facility] Work Phone: Comment on above: The serum:whole bloo d ethanol ratio is approximately 1.14and varies slightly with hematocrit. Medical Alcohol reference interval and critical value innon-tolerant individuals; 50 - 100 Impairment 100 Intoxication 100 - 250 Severe Poisoning 250 - 400 Deep/possible fatal coma Urine Barbiturates Screen Negative < 200 ng/mL [facility] Work Phone: Urine Drug Screen Comment [facility] Work Phone: Comment on above: CONFIRMATORY TESTING FOR ALL POSITIVE URINE DRUG SCREENRESULTS WILL ONLY BE SENT OUT UPON PHYSICIAN ORDER. VISTA Urine Drug Screen methods provide only preliminaryanalytical test results. A more specific alternate chemicalmethod must be used in order to obtain a confirmedanalytical result. Gas chromatography/mass spectrometery(GC/MS) is the preferred confirmatory method. Clinicalconsideration and professional judgement should be appliedto any drug of abuse test result, particularly whenpreliminary positive results are used. URINE TCA TESTING MUST BE ORDERED SEPARATELY. USE TESTMNEMONIC: [facility] Urine Methadone Screen Negative < 300 ng/mL [facility] Work Phone: Urine Methamphetamine-MDMA Screen Negative < 500 ng/mL [facility] Work Phone: Platelets bldon 04-26-2021 Platelets (Bld) [#/Vol] 159 10*3/uL 150-450 [facility] Work Phone: Protein Test strip Ql (U)on 04-26-2021 Protein Ql (U) 15 mg/dl Negative [facility] Work Phone: Squamous epithelial cells de tection in urine sediment by light microscopyon 04-26-2021 Epithelial cells.squamous LM Ql (Urine sed) 0-5 SEEN /hpf 0-5 [facility] Work Phone: Urine blood detectionon RBC Ql (U) 25 /ul Negative [facility] Work Phone: RBC Ql (U) 0 SEEN /hpf 0-5 [facility] Work Phone: Urine clarityon 04-26-2021 Clarity (U) Clear Clear [facility] Work Phone: Urine color determinationon 04-26-2021 Color (U) Alissa Yellow [facility] Work Phone: Urine glucose detectionon Glucose Ql (U) Normal mg/dl Normal [facility] Work Phone: Urine leukocyte esterase det ection by dipstickon 04-26-2021 Leukocyte esterase Test strip Ql (U) 25 /ul Negative [facility] Work Phone: Urine pHon 04-26-2021 pH (U) 6.5 [pH] 5.0 - 8.0 [facility] Work Phone: Urine phencyclidine (PCP) de tectionon 04-26-2021 Phencyclidine Ql (U) Negative < 25 ng/mL [facility] Work Phone: Urine sediment bacteria coun t by microscopy (number/high power field)on 04-26-2021 Bacteria LM.HPF (Urine sed) [#/Area] 0 /[HPF] None Seen [facility] Work Phone: Urine specific gravity measu rementon 04-26-2021 Specific gravity (U) [Rel density] 1.015 1.002-1.030 [facility] Work Phone: Urobilinogen Auto test strip Ql (U)on 04-26-2021 Urobilinogen Ql (U) 12 mg/dl Normal [facility] Work Phone: Absolute lymphocyte counton 04-08-2021 Lymphocytes Auto (Unsp spec) [#/Vol] 1.94 10*3/uL 0.83-4.51 [facility] Work Phone: Basophil percentageon 2021 Lactate [Moles/Vol] 2.2 mmol/L 0.4-2.0 [facility] Work Phone: Comment on above: Critical Result(s) C alled at: 18:32:15 04/08/2021 by: Gladis Perez to Elle. Results read back by same. Basophils/100 WBC (Bld) 0.6 % 0-1 [facility] Work Phone: Bilirubin [Mass/Vol] 0.90 mg/dL 0.20-1.00 [facility] Work Phone: Comment on above: For patients on eltr ombopag therapy, use of Dimension [place] TBIL is not recommended. Chloride [Moles/Vol] 102 mmol/L 98-107 [facility] Work Phone: Eosinophils/100 WBC (Bld) 0.7 % 0-5 [facility] Work Phone: Glucose [Mass/Vol] 102 mg/dL 74-106 [facility] Work Phone: Comment on above: Fasting Glucose resu lt from 100 to 125 mg/dL suggests IMPAIRED HOMEOSTASIS per A.D.A. criteria. Neutrophils (Bld) [#/Vol] 7.0 10*3/uL 2.0-7.7 [facility] Work Phone: Neutrophils/100 WBC (Bld) 67.4 % 47-70 [facility] Work Phone: Potassium [Moles/Vol] 3.4 mmol/L 3.5-5.1 [facility] Work Phone: Protein [Mass/Vol] 8.2 g/dL 6.4-8.2 [facility] Work Phone: Sodium [Moles/Vol] 137 mmol/L 136-145 [facility] Work Phone: WBC (Bld) [#/Vol] 10.3 10*3/uL 4.4-11.0 [facility] Work Phone: Blood erythrocytes count (nu mber/volume)on 04-08-2021 RBC (Bld) [#/Vol] 3.69 10*6/uL 4.6-6.2 [facility] [facility] Work Phone: Blood hemoglobin measurement (mass/volume)on 04-08-2021 Hemoglobin (Bld) [Mass/Vol] 15.0 g/dL 13.0-16.5 [facility] Work Phone: Blood lymphocytes/100 leukoc yteson 04-08-2021 Lymphocytes/100 WBC (Bld) 18.8 % 19-41 [facility] Work Phone: Blood monocytes/100 leukocyt eson 04-08-2021 Monocytes/100 WBC (Bld) 11.9 % 0-10 [facility] Work Phone: Blood platelet mean volumeon 04-08-2021 Platelet mean volume (Bld) [Entitic vol] 10.7 fL 6.2-12.0 [facility] Work Phone: [phone] Determination of erythrocyte mean corpuscular volume (MCV)on 04-08-2021 MCV (RBC) [Entitic vol] 110.6 fL 80-94 [facility] Work Phone: Direct bilirubinon Bilirubin.direct [Mass/Vol] 0.47 mg/dL 0.00-0.30 [facility] Work Phone: Hematocrit Auto (Bld) [Volum e fraction]on 04-08-2021 Hematocrit (Bld) [Volume fraction] 40.8 % 40-54 [facility] Work Phone: [phone] INR in Blood by Coagulation assayon 04-08-2021 INR Coag (Bld) [Relative time] 1.2 {INR} [facility] Work Phone: [phone] Laboratory - Chemistry and C hemistry - challengeon 04-08-2021 ALP [Catalytic activity/Vol] 269 U/L 45-117 [facility] Work Phone: ALT [Catalytic activity/Vol] 117 U/L 16-61 [facility] Work Phone: CO2 [Moles/Vol] 28.0 mmol/L 21.0-32.0 [facility] Work Phone: [phone] Globulin (S) [Mass/Vol] 5.2 g/dL 2.2-4.2 [facility] Work Phone: Lipase [Catalytic activity/Vol] 69 U/L 73-393 [facility] Work Phone: Urea nitrogen/Creatinine [Mass ratio] 7.7 mg/mg 10-20 [facility] Work Phone: [phone] Laboratory - Coagulationon 0 04-08-2021 PT Coag (PPP) [Time] 14.7 s 11.7-14.9 [facility] Work Phone: Laboratory - Hematology and Cell countson 04-08-2021 Erythrocyte distribution width (RBC) [Entitic vol] 53.5 fL 35.1-43.9 [facility] Work Phone: Erythrocyte distribution width (RBC) [Ratio] 13.0 % 11.6-14.6 [facility] Work Phone: Immature granulocytes/100 WBC (Bld) 0.600 % 0.0-0.9 [facility] Work Phone: Comment on above: IG% - Immature Granu locytes (promyelocytes, myelocytes and metamyelocytes) > 1% indicates that a LEFT SHIFT is Present. MCH (RBC) [Entitic mass] 40.7 pg 27.0-32.0 [facility] Work Phone: Nucleated RBC/100 WBC (Bld) [Ratio] 0 % 0-5 [facility] Work Phone: MCHC Auto (RBC) [Mass/Vol]on 04-08-2021 MCHC (RBC) [Mass/Vol] 36.8 g/dL 32-36 [facility] Work Phone: No Panel Informationon 04-08 Estimated Creatinine Clearance Calc 145.38 ml/min [facility] Work Phone: Estimated GFR (MDRD) Amer 173 mL/min >60 [facility] Work Phone: Comment on above: GFR Calc Estimated GFR (MDRD) Non-Af Amer 143 mL/min >60 [facility] Work Phone: Comment on above: Non- GFR Calc Platelets bldon 04-08-2021 Platelets (Bld) [#/Vol] 219 10*3/uL 150-450 [facility] Work Phone: Serum or plasma albumin betty urement (mass/volume)on 04-08-2021 Albumin [Mass/Vol] 3.0 g/dL 3.2-5.0 [facility] Work Phone: Serum or plasma calcium betty urement (mass/volume)on 04-08-2021 Calcium [Mass/Vol] 8.8 mg/dL 8.5-10.1 [facility] Work Phone: Serum or plasma creatinine m easurement (mass/volume)on 04-08-2021 Creatinine [Mass/Vol] 0.65 mg/dL 0.70-1.30 [facility] Work Phone: Comment on above: The validity of the calculated GFR & GFRAA in patients over 70 years has not been determined. Clinical correlation is essential. Serum or plasma urea nitroge n measurement (mass/volume)on 04-08-2021 Urea nitrogen [Mass/Vol] 5 mg/dL 7-18 [facility] Work Phone: Thin prep Papanicolaou smear with manual screeningon 04-08-2021 Thin prep Papanicolaou smear with manual screening 318 U/L 15-37 [facility] Work Phone: Thin prep Papanicolaou smear with manual screening 7 5-15 [facility] Work Phone: [facility] TAPAN DAILEY ([id number]) 1980 M [facility] Date Time Provider Department 05/04/20 ELIEZER OSORIO1 During your visit today, we recorded the following information about you: Shyann Bejarano LPN, MELINDA 05/04/2020 11:10 AM Signed PATIENT CALLING C/O NOTICING BLOOD IN URINE THIS MORNING. DENIES ANY PAIN OR BURNING WITH URINATION, BUT NOW HAVING PELVIC PAIN. PATIENT IS S/P LAP GABY ON 04/11/20. PER DR. OSORIO NOTIFIED PATIENT THAT IT'S NOT LIKELY DUE TO SURGERY, AND PROBABLY AN INFECTION. ADVISED PATIENT TO CONTACT PCP OR GO TO AN URGENT CARE FACILITY. PATIENT VOICED UNDERSTANDING. Shyann Bejarano LPN Allergies As of Date: 05/04/2020 Noted Allergy Reaction NAPROXEN 04/25/2005 2 - Rash Comments: Plus GI upset Date Reviewed: 04/24/2020 Reviewed by: Cesia (Lionel Sims) Jean - Fully Assessed Reason for Visit: Patient Question [9119] Cmt: HEMATURIA Prescriptions as of 05/04/2020 Sig: ONDANSETRON HCL 4 MG TABLET Take by mouth every 8 hours a* CREON 6,000-19,000-30,000 UNI* Take 1 capsule by mouth three* Patient not taking: Reported on 04/24/2020 FOLIC ACID 1 MG TABLET once daily. 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 Predominant Disturbance of Emotions [R45.89] 10/01/2007 12/08/2008 Unspecified Adjustment Reaction [F43.20] 10/01/2007 12/08/2008 Sterilization [Z30.2] 11/26/2007 12/08/2008 Other, Mixed, or Unspecified Nondependent Drug *12/17/2007 Class: Chronic More... Routine general medical examination at a health*12/08/2008 11/28/2011 Class: Chronic More... Tobacco Use Disorder [F17.200] 12/08/2008 More... Chronic pain syndrome [G89.4] 11/28/2011 More... Gallstones [K80.20] 04/11/2020 04/11/2020 Encounter Status:Closed by SHYANN BEJARANO on 05/04/20 [facility] CNOVon 04-24-2020 CNOV Office Visit ([facility] 6) -------- TAPAN DAILEY ([id number]) 1980 M [facility] Date Time Provider Department 04/24/20 1:00 PM CESIA PENA (PARTY PLAN SELLING DISTRIBUTOR, PRIMARY TEACHER) [place]6 During your visit today, we recorded the following information about you: Pulse Respiration Blood pressure Weight 78/minute 20/minute 100/70 72.6 kg Height 1.854 m Cesia Pena APRN.ALEJO 04/24/2020 2:53 PM Signed Cesia Pena APRN, CNP General Surgery [address] [place] [address], [place] [address] Patient referred by: SELF Patient presents with: Post Op: lap gaby HPI: This is a post operative visit. Tapan Dailey is a 39-year-old male who underwent laparoscopic cholecystectomy on 04/11/[address] Osorio. He presents to the office today for a postoperative evaluation. SURGICAL PATHOLOGY: Consistent with mild chronic cholecystitis SUBJECTIVE/INTERVAL HISTORY: He is doing well today and denies pain. He is tolerating a regular diet and denies nausea or emesis. He is having bowel function. He denies fevers, chills, or issues to his surgical incisions. PAST MEDICAL HISTORY Diagnosis Date - Arthritis - Chronic pain syndrome - Depression - Gallstones - Hiatal hernia - Other, mixed, or unspecified nondependent drug abuse, continuous abuse with both prescription and street obtained narcotics - SOB (shortness of breath) PAST SURGICAL HISTORY Procedure Laterality Date - CHOLECYSTECTOMY 04/11/2020 lap - EGD 06/30/2019 2 cm hiatal hernia, erythema in stomach and duodenum - EXTRACTION ERUPTED TOOTH/EXR age 18 - FOOT SURGERY HX Left 2019 X2 screw in left foot LAST ONE IN NOV 2019 - INGUINAL HERNIA REPAIR HX Left 1993 - PAST SURGICAL HISTORY OF 2011 X2 cervical disc disease LAST ONE IN 2011 - PAST SURGICAL HISTORY OF Left 2006 THUMB SURGERY X3 LAST ONE IN 2006 - WRIST SURGERY HX Left 05/31/06 (year?) X2 wrist (L), Dr. Ruiz -- cyst and calcium build-up, tendon repaired LAST ONE IN 2006 FAMILY HISTORY Problem Relation Age of Onset - Hypertension Father - Coronary Artery Disease Other none - Diabetes Paternal Grandfather - Colon Cancer Other none - Prostate Cancer Other none Social History Tobacco Use - Smoking status: Current Every Day Smoker Packs/day: 1.00 Years: 8.00 Pack years: 8.00 Types: Cigarettes - Smokeless tobacco: Former User Substance Use Topics - Alcohol use: Yes Alcohol/week: 5.0 standard drinks Types: 2 Cans of Beer (12oz) per week - Drug use: Not Currently Comment: none since 2012 Current Outpatient Medications Medication Sig - ondansetron (ZOFRAN) 4 mg tablet Take by mouth every 8 hours as needed. - folic acid 1 mg tablet once daily. - Buprenorphine-Naloxone (SUBOXONE) 8-2 mg film Dissolve 1 Film under the tongue once daily. - wfezhd-ycwjidki-fjeqpsr (CREON) 6,000-19,000 -30,000 unit cpDR Take 1 capsule by mouth three times daily with meals for 10 days. (Patient not taking: Reported on 04/24/2020 ) No current facility-administered medications for this visit. ALLERGIES Allergen Reactions - Naproxen Rash Plus GI upset REVIEW OF SYSTEMS: GENERAL: No weight loss, malaise or fevers GI: Negative for abdominal pain, nausea , vomiting, diarrhea, constipation and signs of jaundice Positive for none GENITOURINARY: No history of dysuria, frequency, urgency or hematuria SKIN:Negative for lesions, rash, and itching HEMATOLOGIC/LYMPHATIC/IM MUNOLOGIC:Negative for prolonged bleeding, bruising easily or swollen nodes PHYSICAL EXAM: BP 100/70 Pulse 78 Resp 20 Ht 6' 1 (1.85m) Wt 160 lb (72.6kg) BMI 21.11 kg/(m2). GENERAL APPEARANCE: Well appearing, alert, in no acute distress, well-hydrated, well nourished.. SKIN: Skin color, texture, turgor normal, no suspicious rashes or lesions LUNGS: Unlabored on room air ABDOMEN: Abdomen soft, non-tender. Bowel sounds normal. No masses, organomegaly. NEURO: Alert, oriented x3, speech clear and articulate and CATES DATA: Diagnostic tests reviewed for today's visit: Pathology report reviewed Greater than 50% of the direct patient contact time was spent in counseling or coordination of care. ASSESSMENT/PLAN: 1. S/P laparoscopic cholecystectomy - ICD9: V45.89, ICD10: Z90.49 This is a 39-year-old male S/P laparoscopic cholecystectomy on 04/11/[address] Osorio. He is doing well postoperatively and his incisions are healing nicely. We reviewed his surgical pathology today which is consistent with mild chronic cholecystitis. He was advised to continue his lifting restrictions until 05/02/2020. He may follow-up in the office as needed for any issues or concerns. Cesia Pena, LIONEL.PRIMARY TEACHER Please Note: This office note has been created using [employer], a speech recognition software program, and may contain errors including punctuation, grammar, spelling, gender, and inappropriate (more content not included)... [facility] ALLIED HEALTHon 04-11-2020 ALLIED HEALTH HNO ID: [id number] Author: Maurilio (Rt) Katy Burris Service: Radiology Author Type: Recycling Or Rubbish Collector Type: Allied Health Filed: 04/11/2020 1:24 PM Note Text: Radiology Service Progress Note PATIENT NAME: Tapan Dailey DATE OF SERVICE: April 11, 2020 TIME: 1:23 PM PATIENT IDENTITY VERIFICATION COMPLETED USING TWO (2) IDENTIFIERS: Name and Date of obtained from a relative, guardian or prior caregiver.. FALL SCREENING: Has the patient had 2 falls in the last year or 1 fall with injury or currently using an Ambulatory Assistive Device (Walker, Cane, Wheelchair, Crutches, etc.)? Inpatient: Screened on floor PATIENT GENDER DATA: Male PATIENT RELEVANT IMPLANT DATA REVIEWED: Not Applicable RADIOLOGY DEPARTMENT: INTRAOPERATIVE CHOLANGIOGRAMS DONE WITH LAPAROSCOPIC CHOLECYSTECTOMY PERIPHERAL IV DATA: Not applicable SIGNED BY: RT Nathan April 11, 2020 1:23 PM [facility] ANES POSTPROC EVALon 021 ANES POSTPROC EVAL HNO ID: [id number] Author: Carri Reid Service: Anesthesiology Author Type: Anesthesiologist Type: Anesthesia Postprocedure Evaluation Filed: 04/11/2020 5:37 PM Note Text: POST ANESTHESIA EVALUATION NOTE : 1980 Procedure Summary Date: 04/11/20 Room / Location: [facility] OR / [facility] OR Anesthesia Start: 1218 Anesthesia Stop: 1336 Procedure: LAPAROSCOPIC CHOLECYSTECTOMY WITH GRAMS (N/A Abdomen) Diagnosis: Gallstones Surgeons: Eliezer Osorio Responsible Provider: Carri Reid Anesthesia Type: general ASA Status: 2 Anesthesia Type: general Last vitals Vitals Value Taken Time BP 114/85 04/11/20 1530 Temp 36.4 ?C (97.5 ?F) 04/11/20 1515 HR SpO2 85 04/11/20 1530 Resp 30 04/11/20 1530 SpO2 100 % 04/11/20 1530 Post Anesthesia Patient Status Patient Evaluation: PACU. PACU/ICU Patient Condition: stable. Anticipated Disposition: phase 2 then home. Neurological Status: aware and responsive. Pulmonary Status: breathing comfortably on room air Airway Control: returned to baseline unsupported. Cardiovascular Status: stable. Pain Management: clinically adequate Postoperative Hydration: acceptable. Intraoperative Events: no significant anesthesia events Post Operative Nausea/Vomiting Status: no significant post operative nausea or vomiting Anesthetic Observations: Recommendation: continue current plan of care. SIGNATURE: Carri Reid MD PATIENT NAME: Tapan Dailey DATE: April 11, 2020 TIME: 5:37 PM CSN: [id number] [facility] ANES PRE-OPon 04-11-2020 ANES PRE-OP HNO ID: [id number] Author: Carri Reid Service: Anesthesiology Author Type: Anesthesiologist Type: Anesthesia Preprocedure Evaluation Filed: 04/11/2020 11:40 AM Note Text: ANESTHESIOLOGY DAY OF SURGERY NOTE : 1980 Procedure(s) (LRB): LAPAROSCOPIC CHOLECYSTECTOMY WITH GRAMS (N/A) Surgeon(s): Eliezer Osorio Estimated body mass index is 21.11 kg/m? as calculated from the following: Height as of 04/04/20: 185.4 cm (6' 1). Weight as of 04/04/20: 72.6 kg (160 lb). Most recent hematocrit and potassium results: Hematocrit 46.8 03/29/2020 Potassium 3.1 03/29/2020 Relevant Problems No relevant active problems I - PHYSICAL EVALUATION AIRWAY Patient intubated: No. Tracheostomy tube not present Mallampati: II. TM distance: >3 FB. Neck ROM: full ROM without neurological symptoms. Mouth opening: adequate. Short neck: no. Thick neck: no DENTAL Dental findings: teeth intact and poor dentition. II - ANESTHESIA PLAN ASA Score: 2 Anesthetic Plan: general Airway type: ETT The patient is a current smoker. NPO Status: adequate Perioperative beta-chacha/statin: N/A. Monitoring plan: standard ASA. Postoperative analgesic plan: multimodal analgesia. Anesthetic Risks, Benefits, Alternatives, Personnel Discussed. Consent obtained from: patient.Patient / Surrogate agrees to blood products: blood products not planned Significant changes in the patient condition since the History and Physical, not otherwise documented in primary service progress note: no. Potential Anesthesia issues that may suggest increased risk of complications or contraindication to planned procedure: none. No vitals data found for the desired time range. No current facility-administered medications on file as of 04/11/2020. Outpatient Medications as of 04/11/2020 Medication Sig - folic acid 1 mg tablet once daily. - IBU 400 mg tablet every 6 hours as needed. - Buprenorphine-Naloxone (SUBOXONE) 8-2 mg film Dissolve 1 Film under the tongue once daily. Other history: ADHD Chronic pain H/o narcotic abuse on suboxone, per patient, discussion with pain management physician and states he is ok to take narcotic pain medication +tobacco I have interviewed and examined the patient. I have reviewed the medical record and/or the pre-anesthesia evaluation, pertinent labs, and test results. This contains updated information obtained within 48 hours of Surgery/Procedure. SIGNATURE: Carri Reid MD PATIENT NAME: Tapan Dailey DATE: April 11, 2020 TIME: 11:02 AM CSN: [id number] [facility] BRIEF OP NOTon 04-11-2020 BRIEF OP NOT HNO ID: [id number] Author: Pao Vyas Service: General Surgery Author Type: Resident Type: Brief Op Note Filed: 04/11/2020 1:27 PM Note Text: -------- Attestation signed by Eliezer Osorio at 04/11/2020 3:51 PM I was present for the critical portions of the procedure and was immediately available to provide assistance. I agree with the residents operative dictation. Eliezer Osorio MD April 11, 2020 3:51 PM -------- BRIEF OPERATIVE / PROCEDURE NOTE LOG ID: [id number] SURGERY/PROCEDURE DATE: 04/11/2020 INCISION/PROCEDURE START TIME: 12:38 PM INCISION CLOSE/PROCEDURE END TIME: 1:20 PM SURGEON(S)/PROCEDURALIST (S) AND SPECIAL MACHINE OPERATOR(S): Surgeon(s) and Role: * Eliezer Osorio - Primary * Pao Vyas - Resident - Assisting No Additional Staff SURGERY/PROCEDURE(S): Laparoscopic cholecystectomy with cholangiogram ANESTHESIA: General FINDINGS: No filling defects on cholangiogram. ESTIMATED BLOOD LOSS: 10 mls SPECIMENS: Gallbladder COMPLICATIONS: None PRE-OP/PRE-PROCEDURE DIAGNOSIS: Pancreatitis with gallstones. POST-OP/POST-PROCEDURE DIAGNOSIS: Same as Preop SIGNATURE: Pao Reed MD PATIENT NAME: Tapan Dailey DATE: April 11, 2020 TIME: 1:26 PM PAGER/CONTACT #: [facility] OPERATIVE NOon 04-11-2020 OPERATIVE NO HNO ID: [id number] Author: Eliezer Osorio Service: General Surgery Author Type: Physician Type: Operative Report Filed: 04/12/2020 10:10 AM Note Text: [facility] - Operative Report TAPAN DAILEY : 1980 AGE: 39. SEX: M PATIENT TYPE: A HOSP SVC: GENS LOCATION: [facility] ATTENDING PHYSICIAN: ELIEZER OSORIO CSN NUMBER: [id number] DATE OF SURGERY/PROCEDURE: 04/11/2020 INCISION/PROCEDURE START TIME: 12:38 p.m. INCISION CLOSE/PROCEDURE END TIME: 1:20 p.m. PREOPERATIVE DIAGNOSIS: Gallstone pancreatitis. POSTOPERATIVE DIAGNOSIS: Gallstone pancreatitis. SURGEON: Eliezer Osorio MD SPECIAL MACHINE OPERATOR: Pao Reed MD SURGERY/PROCEDURE: Laparoscopic cholecystectomy with cholangiogram. ANESTHESIA: General LOG ID: [id number]. WOUND CLASS: 2. FIRE RISK: 2. ESTIMATED BLOOD LOSS: 10 mL. SPECIMENS: Gallbladder. FINDINGS: No filling defects on intraoperative cholangiogram. INDICATION: This is a 39-year-old male with intermittent bouts of pancreatitis. Workup included an ultrasound that showed small gallstones and they were presumed to be possibly contributing to the patient's pancreatitis. He was seen as an outpatient and laparoscopic possible open cholecystectomy was discussed and the patient agreed to proceed after risks and benefits were discussed which including bleeding, infection, damage to surrounding tissues and bile leak. DESCRIPTION OF PROCEDURE: After a preoperative Huddle was performed, he was brought to the operating room, placed supine on the table. Anesthesia was induced and the patient was intubated in the 1st attempt. He was then positioned on the table with no pressure points with his arms out and a footboard was placed and 2 bed straps were placed. The abdomen was then prepped and draped in a standard fashion and a time-out was performed. A supraumbilical 12 mm Rogers cutdown was then performed and a trocar was placed. On abdominal insufflation the pressures indicated peritoneal entry once the abdomen was insufflated. A brief diagnostic laparoscopy showed no injury on abdominal entry. The patient was then placed in the reverse Trendelenburg position and then rolled left side down. A 5 mm trocar was then inserted in the subxiphoid region as well as 2 additional subcostal on the patient's right-hand side. The gallbladder was identified, it did have a large fundus that was grasped and retracted cranially as well as laterally. The infundibulum was also identified and grasped and retracted laterally. Careful dissection was then performed in a lateral to medial fashion with blunt dissection as well as hook cautery to take down any attachments and eventually getting a critical view of safety with 3rd of the gallbladder dissected off the liver bed with clear view of liver behind 2 structures coursing to the gallbladder, presumably the cystic duct and the cystic artery. After the critical view was obtained, the cystic artery was clipped and divided and a Joy clamp was placed in the subxiphoid, right kidney and 1 of the subcostal ports and placed on the infundibulum of the gallbladder. Flushing indicated no leak of saline once the Joy was in place. Cholangiograms were then performed showing no filling defects on the cholangiogram as well as a clear right and left hepatic duct and a fairly long cystic duct. The Joy was then removed. The gallbladder was then grasped in the same manner and retracted laterally. The cystic duct was then clipped with 3 clips on the stay side, 5 mm clips and 1 on the specimen side and cut with Endo Dwight. The gallbladder was then dissected off the gallbladder fossa. Prior to removing the gallbladder from the liver, the gallbladder fossa was examined and any small bleeding areas were hemostatic with Bovie electrocautery. The gallbladder was then dissected completely out of the gallbladder fossa. A small endobag was then placed through the 12 mm port. The gallbladder was placed in the endobag and removed via the 12 mm supraumbilical port. All other ports were removed under direct visualization with no bleeding. The patient was then placed back into a neutral position. The trocars were removed. The 12 mm fascia was closed with a 0 Vicryl in a isxzqi-cm-yjpbw fashion. The 5% Marcaine plain was then used for local anesthetic. The skin was closed in standard fashion with 4-0 Monocryl and Steri-Strips. All hard and soft counts were complete and accurate prior to closure of the fascia. The patient was then woken and brought to PACU in stable condition. Eliezer Osorio MD Dictated by Pao Reed MD for Eliezer Osorio MD NSA:[id number] /[id number] Normal [facility] SURGICAL PATHOLOGYon 021 CASE REPORT Normal [facility] Comment on above: Order Comment: Speci men Type: TISSUE SPECIMEN Result Comment: [facility] Pathology Report Case: [id number] Authorizing Provider: Eliezer Osorio Collected: 04/11/2020 12:44 PM Ordering Location: [place] [facility] Received: 04/12/2020 06:00 AM Pathologist: Puneet Pelayo MD Specimen: GALLBLADDER Performed By: #### S ####[facility] LABORATORYCLIA [id number] [place] [address] FINAL DIAGNOSIS Normal [facility] Comment on above: Order Comment: Speci men Type: TISSUE SPECIMEN Result Comment: A. G allbladder, cholecystectomy Mild chronic cholecystitis. Performed By: #### S ####[facility] LABORATORYCLIA [id number] [place] [address] FINAL PERFORMING LAB Normal [facility] Comment on above: Order Comment: Speci men Type: TISSUE SPECIMEN Result Comment: Diag nostic interpretation performed at [facility], [address] [place] [address] CLIA# [id number] Block Saw Operator: Rito Loera M.D. Performed By: #### S ####[facility] LABORATORYCLIA [id number] [place] [address] GROSS DESCRIPTION A. GALLBLADDER. Normal [facility] Comment on above: Order Comment: Speci men Type: TISSUE SPECIMEN Result Comment: Rece ived in formalin labeled gallbladder is a specimen consisting of a gallbladder measuring 11.8 x 2.3 x 2.3 cm. A perforation is not present. The lumen contains thick dark bile. The serosal surface is purple-green and glistening. The wall of the specimen measures 0.1 cm in thickness. Calculi are not present. A calculus is not impacted in the cystic duct. The mucosal surface is bile stained. Physical Education Specialist sections are submitted in formalin in 1 cassette. KVB/pkp Gross examination performed at [facility], [address] [place] [address] CLIA# [id number] Performed By: #### S ####[facility] LABORATORYCLIA [id number] [place] [id number] XR CHOLANGIOGRAM INTRAOPon 0 04-11-2020 Cholesterol [Mass/Vol] Final Report DATE OF EXAM: Apr 11 2020 1:18PM [facility] [id number] - XR CHOLANGIOGRAM INTRAOP / PROCEDURE REASON: GALLSTONES Physician Interpretation INTRAOPERATIVE CHOLANGIOGRAM INDICATION: GALLSTONES TECHNIQUE: 4 images are submitted, obtained under fluoroscopic guidance. Fluoroscopy time = 0:06 (minutes:seconds). RESULT: No fixed filling defects within the opacified cystic duct, intrahepatic biliary radicles, common hepatic duct, or common bile duct. - IMPRESSION: No choledocholithiasis or other obstructing lesion in the biliary system. Clinical Laboratory Medical Director: BRANDO Transcribe Date/Time: Apr 11 2020 1:32P Dictated by : DAVID SMITH MD This examination was interpreted and the report reviewed and electronically signed by: DAVID SMITH MD on Apr 11 2020 1:33PM EST Normal [facility] CNCOon 04-05-2020 CNCO Letter Text Normal [facility] HISTORY PHYSICALon HISTORY PHYSICAL HNO ID: [id number] Author: Nella Mcgrath Service: ? Author Type: Nurse Practitioner Type: HANDP Filed: 04/04/2020 12:02 PM Note Text: HISTORY AND PHYSICAL EXAMINATION SERVICE DATE: 04/04/2020 SERVICE TIME: 11:49 AM PRIMARY CARE PHYSICIAN: Luis Carnes MD REASON FOR VISIT: Tapan Dailey is a 39 year old male who is scheduled for Procedure(s): LAPAROSCOPIC CHOLECYSTECTOMY WITH GRAMS (N/A) at the request of Dr. Eliezer Osorio for routine HANDP The patient has the following: ACTIVE PROBLEM LIST Chondromalacia of Patella Attention Deficit Disorder With Hyperactivity(314.01) Other, Mixed, Or Unspecified Nondependent Drug Abuse, Unspecified Tobacco Use Disorder Chronic Pain Syndrome Subjective CHIEF COMPLAINT: Gall stones HPI: Tapan Dailey Is a 39 year old male present in presurgical testing.He has been having abdomen pain for several years. He denies known triggers. He states there is days he is fine and days he has pain with no reason known. He does report nausea and vomiting.He had a cat, scan, MRI and ultrasounds and he was told his gall bladder was not functioning properly. He rates the pain 7/10.Surgery was recommended and he agrees to proceed as planned. He is scheduled for LAPAROSCOPIC CHOLECYSTECTOMY WITH GRAMS on 04/11/[address] Osorio. Surgery will be at [facility] Have you been in contact with someone with known coronavirus/Covid 19? Tested negative in December and January at per patient Have you had surgery or pre testing at [facility] in the past 3 years? no REVIEW OF SYSTEMS: General: Positive for: unintentional weight change and malaise Negative for: fever Neurological: Positive for: headaches Negative for: seizures and strokes Respiratory: Positive for: tobacco use. Negative for: asthma, COPD, current cough and pneumonia within 6 weeks Cardiovascular: Positive for: hypertension Negative for: chest pain, CHF, recent PA and valve surgery GI: Positive for: abdominal pain, nausea and vomiting : No history of dysuria, frequency or incontinence, stones or chronic kidney disease. No difficulty urinating, nocturia > 1 time per night or hematuria. Negative for: frequent urination and urgency Endocrine: No history of diabetes. Has not taken steroids within the past 30 days. No history of endocrinological symptoms or problems. Negative for: hypothyroidism Hematology: No history of bleeding or clotting disorder. Pt is not taking anti-coagulation or platelet medications. No history of hematological symptoms or problems. Negative for: anemia Oncology: No history of CA metastasis, chemo within 30 days, or radiotherapy within 90 days. No history of oncological symptoms or problems. Psych: Positive for: depression Negative for: anxiety Musculoskeletal: Positive for: back pain Skin: Negative for lesions, rash and itching. PAST MEDICAL HISTORY Diagnosis Date - Chronic pain syndrome - Depression - Gallstones - Hiatal hernia - Other, mixed, or unspecified nondependent drug abuse, continuous abuse with both prescription and street obtained narcotics - SOB (shortness of breath) PAST SURGICAL HISTORY Procedure Laterality Date - EGD 06/30/2019 2 cm hiatal hernia, erythema in stomach and duodenum - EXTRACTION ERUPTED TOOTH/EXR age 18 - FOOT SURGERY HX Left 2019 X2 screw in left foot LAST ONE IN NOV 2019 - INGUINAL HERNIA REPAIR HX Left 1993 - PAST SURGICAL HISTORY OF 2011 X2 cervical disc disease LAST ONE IN 2011 - PAST SURGICAL HISTORY OF Left 2006 THUMB SURGERY X3 LAST ONE IN 2006 - WRIST SURGERY HX Left 05/31/06 (year?) X2 wrist (L), Dr. Ruiz -- cyst and calcium build-up, tendon repaired LAST ONE IN 2006 FAMILY HISTORY Problem Relation Age of Onset - Hypertension Father - Coronary Artery Disease Other none - Diabetes Paternal Grandfather - Colon Cancer Other none - Prostate Cancer Other none Social History Tobacco Use - Smoking status: Current Every Day Smoker Packs/day: 1.00 Years: 8.00 Pack years: 8.00 Types: Cigarettes - Smokeless tobacco: Former User Substance Use Topics - Alcohol use: Yes Alcohol/week: 5.0 standard drinks Types: 2 Cans of Beer (12oz) per week - Drug use: Not Currently Comment: none since 2012 Prior to Admission medications as of 04/04/20 1144 Medication Sig Last Dose Taking jmbaqf-sdgrgqfa-dmwprdq (CREON) 6,000-19,000 -30,000 unit cpDR Take 1 capsule by mouth three times daily with meals for 10 days. ondansetron orally disintegrating (ZOFRAN ODT) 4 mg disintegrating tablet Take 1 tablet by mouth every 6 hours as needed for Nausea/Vomiting for up to 7 days. folic acid 1 mg tablet once daily. IBU 400 mg tablet every 6 hours as needed. Buprenorphine-Naloxone (SUBOXONE) 8-2 mg film Dissolve 1 Film under the tongue once daily. No medication comments found. ALLERGIES Allergen Reactions - Naproxen Rash Objective PHYSICAL EXAM: (more content not included)... Normal [facility] PT EDon 04-02-2020 PT ED HNO ID: [id number] Author: Charisse (Rn) GREG Soriano Service: ? Author Type: Registered Nurse Type: Patient Education Filed: 04/02/2020 2:05 PM Note Text: PRE OP LEARNING ASSESSMENT PROCEDURE/SURGERY: READINESS TO LEARN COGNITIVE ABILITY: Alert and oriented MOTIVATION TO LEARN: Eager FAMILY SUPPORT: Unable to assess - Family not present PATIENT LEARNS BEST BY: Multiple Methods FACTORS AFFECTING LEARNING: None PHYSICAL LIMITATIONS AFFECTING LEARNING: None Electronically Signed By: Charisse Soriano RN In Department: [place] SURGERY OR Normal [facility] CBC W Auto Differential pane l (Bld)on 03-29-2020 Basophils (Bld) [#/Vol] 0.08 10*3/uL Normal <0.11 [facility] Comment on above: Order Comment: Speci men Type: BLOOD SPECIMEN Performed By: #### 5 7021-8 ####[facility]ATORYCLIA [id number] [place] [address] Basophils/100 WBC (Bld) 1.4 % Normal [facility] Comment on above: Order Comment: Speci men Type: BLOOD SPECIMEN Performed By: #### 5 7021-8 ####[facility]ORY[facility]IA [id number] [place] [address] Differential cell count method Nom (Bld) Auto Normal [facility] Comment on above: Order Comment: Speci men Type: BLOOD SPECIMEN Performed By: #### 5 7021-8 ####[facility] [id number] [place] [address] Eosinophils (Bld) [#/Vol] 0.07 10*3/uL Normal <0.46 [facility] Comment on above: Order Comment: Speci men Type: BLOOD SPECIMEN Performed By: #### 5 7021-8 ####[facility]ATORYCLIA [id number] [place] [address] Eosinophils/100 WBC (Bld) 1.3 % Normal [facility] Comment on above: Order Comment: Speci men Type: BLOOD SPECIMEN Performed By: #### 5 7021-8 ####[facility]ORYCLIA [id number] [place] [address] Erythrocyte distribution width (RBC) [Ratio] 12.8 % Normal 11.5-15.0 [facility] Comment on above: Order Comment: Speci men Type: BLOOD SPECIMEN Performed By: #### 5 7021-8 ####[facility]ORYCLIA [id number] [place] [address] Hematocrit (Bld) [Volume fraction] 46.8 % Normal 39.0-51.0 [facility] Comment on above: Order Comment: Speci men Type: BLOOD SPECIMEN Performed By: #### 5 7021-8 ####[facility]ORY[facility]IA [id number] [place] [address] Hemoglobin (Bld) [Mass/Vol] 15.9 g/dL Normal 13.0-17.0 [facility] Comment on above: Order Comment: Speci men Type: BLOOD SPECIMEN Performed By: #### 5 7021-8 ####[facility]ORYCLIA [id number] [place] [address] IMMATURE GRAN % 0.4 % Normal [facility] Comment on above: Order Comment: Speci men Type: BLOOD SPECIMEN Performed By: #### 5 7021-8 ####[facility]ORYCLIA [id number] [place] [address] IMMATURE GRAN ABS <0.03 Normal <0.10 [facility] Comment on above: Order Comment: Speci men Type: BLOOD SPECIMEN Performed By: #### 5 7021-8 ####[facility]ATORYCLIA [id number] [place] [address] Lymphocytes (Bld) [#/Vol] 2.20 10*3/uL Normal 1.00-4.00 [facility] Comment on above: Order Comment: Speci men Type: BLOOD SPECIMEN Performed By: #### 5 7021-8 ####[facility]ATORYCLIA [id number] [place] [address] Lymphocytes/100 WBC (Bld) 39.8 % Normal [facility] Comment on above: Order Comment: Speci men Type: BLOOD SPECIMEN Performed By: #### 5 7021-8 ####[facility]ORYCLIA [id number] [place] [address] MCH (RBC) [Entitic mass] 34.6 pg High 26.0-34.0 [facility] Comment on above: Order Comment: Speci men Type: BLOOD SPECIMEN Performed By: #### 5 7021-8 ####[facility]ATORYCLIA [id number] [place] [address] MCHC (RBC) [Mass/Vol] 34.0 g/dL Normal 30.5-36.0 [facility] Comment on above: Order Comment: Speci men Type: BLOOD SPECIMEN Performed By: #### 5 7021-8 ####[facility]ORYCLIA [id number] [place] [address] MCV (RBC) [Entitic vol] 102.0 fL High 80.0-100.0 [facility] Comment on above: Order Comment: Speci men Type: BLOOD SPECIMEN Performed By: #### 5 7021-8 ####[facility]ORYCLIA [id number] [place] [address] Monocytes (Bld) [#/Vol] 0.73 10*3/uL Normal <0.87 [facility] Comment on above: Order Comment: Speci men Type: BLOOD SPECIMEN Performed By: #### 5 7021-8 ####[facility]ORYCLIA [id number] [place] [address] Monocytes/100 WBC (Bld) 13.2 % Normal [facility] Comment on above: Order Comment: Speci men Type: BLOOD SPECIMEN Performed By: #### 5 7021-8 ####[facility]ORYCLIA [id number] [place] [address] Neutrophils (Bld) [#/Vol] 2.43 10*3/uL Normal 1.45-7.50 [facility] Comment on above: Order Comment: Speci men Type: BLOOD SPECIMEN Performed By: #### 5 7021-8 ####[facility]ORYCLIA [id number] [place] [address] Neutrophils/100 WBC (Bld) 43.9 % Normal [facility] Comment on above: Order Comment: Speci men Type: BLOOD SPECIMEN Performed By: #### 5 7021-8 ####[facility]ORYCLIA [id number] [place] [address] Nucleated RBC (Bld) [#/Vol] 10*3/uL Normal <0.01 [facility] Comment on above: Order Comment: Speci men Type: BLOOD SPECIMEN Performed By: #### 5 7021-8 ####[facility]ORYCLIA [id number] [place] [address] Nucleated RBC/100 WBC (Bld) [Ratio] 0.0 /100 WBC Normal 0.0 [facility] Comment on above: Order Comment: Speci men Type: BLOOD SPECIMEN Performed By: #### 5 7021-8 ####[facility]ORYCLIA [id number] [place] [address] Platelet mean volume (Bld) [Entitic vol] 11.8 fL Normal 9.0-12.7 [facility] Comment on above: Order Comment: Speci men Type: BLOOD SPECIMEN Performed By: #### 5 7021-8 ####[facility]ATORYCLIA [id number] [place] [address] Platelets (Bld) [#/Vol] 125 10*3/uL Low 150-400 [facility] Comment on above: Order Comment: Speci men Type: BLOOD SPECIMEN Performed By: #### 5 7021-8 ####[facility]ORYCLIA [id number] [place] [address] RBC (Bld) [#/Vol] 4.59 10*6/uL Normal 4.20-6.00 [facility] Comment on above: Order Comment: Speci men Type: BLOOD SPECIMEN Performed By: #### 5 7021-8 ####[facility]ATORYCLIA [id number] [place] [address] WBC (Bld) [#/Vol] 5.53 10*3/uL Normal 3.70-11.00 [facility] Comment on above: Order Comment: Speci men Type: BLOOD SPECIMEN Performed By: #### 5 7021-8 ####[facility]ATORYCLIA [id number] [place] [address] Comprehensive metabolic 2000 panelon 03-29-2020 Albumin [Mass/Vol] 3.7 g/dL Low 3.9-4.9 [facility] Comment on above: Order Comment: Speci men Type: BLOOD SPECIMEN Performed By: #### 3 040-3, 44746-3 #### [facility] CLIA [id number] [address] [place] [address] ALP [Catalytic activity/Vol] 133 U/L High 38-113 [facility] Comment on above: Order Comment: Speci men Type: BLOOD SPECIMEN Performed By: #### 3 040-3, 68768-0 #### [facility] CLIA [id number] [address] [place] [address] ALT With P-5'-P [Catalytic activity/Vol] 90 U/L High 10-54 [facility] Comment on above: Order Comment: Speci men Type: BLOOD SPECIMEN Performed By: #### 3 -3, #### [facility] CLIA [id number] [address] [place] [address] Anion gap [Moles/Vol] 13 mmol/L Normal 9-18 [facility] Comment on above: Order Comment: Speci men Type: BLOOD SPECIMEN Performed By: #### 3 040-3, 79573-2 #### [facility] CLIA [id number] [address] [place] [address] AST With P-5'-P [Catalytic activity/Vol] 252 U/L High 14-40 [facility] Comment on above: Order Comment: Speci men Type: BLOOD SPECIMEN Performed By: #### 3 -3, #### [facility] CLIA [id number] [address] [place] [address] Bilirubin [Mass/Vol] 1.2 mg/dL Normal 0.2-1.3 [facility] Comment on above: Order Comment: Speci men Type: BLOOD SPECIMEN Performed By: #### 3 -, #### [facility] CLIA [id number] [address] [place] [address] Calcium [Mass/Vol] 9.0 mg/dL Normal 8.5-10.2 [facility] Comment on above: Order Comment: Speci men Type: BLOOD SPECIMEN Performed By: #### 3 3, #### [facility] CLIA [id number] [address] [place] [address] Chloride [Moles/Vol] 101 mmol/L Normal 97-105 [facility] Comment on above: Order Comment: Speci men Type: BLOOD SPECIMEN Performed By: #### 3 -3, 69068-8 #### [facility] CLIA [id number] [address] [place] [address] CO2 [Moles/Vol] 24 mmol/L Normal 22-30 [facility] Comment on above: Order Comment: Speci men Type: BLOOD SPECIMEN Performed By: #### 3 -3, 24010-3 #### [facility] CLIA [id number] [address] [place] [address] Creatinine [Mass/Vol] 0.63 mg/dL Low 0.73-1.22 [facility] Comment on above: Order Comment: Speci men Type: BLOOD SPECIMEN Performed By: #### 3 040-3, 45572-9 #### [facility] CLIA [id number] [address] [place] [address] GFR/1.73 sq M.predicted MDRD (S/P/Bld) [Vol rate/Area] mL/min/{1.73_m2} Normal [facility] Comment on above: Order Comment: Speci men Type: BLOOD SPECIMEN Result Comment: >60 eGFR (Estimated GFR) Units of measure: mL/min/1.73 meters squared eGFR is derived from the reexpressed MDRD Study equation using the following parameters: serum creatinine, age, gender and race. The creatinine assay has been calibrated to be traceable to IDMS. An eGFR <60 mL/min/1.73m2 for >3 months is consistent with chronic kidney disease. Refer to KDOQI guidelines for clinical interpretation. In patients with unstable renal function, e.g. those with acute kidney injury, the eGFR may not accurately reflect actual GFR. Performed By: #### 3 040-3, 99815-2 #### [facility] CLIA [id number] [address] [place] [address] Glucose [Mass/Vol] 118 mg/dL High 74-99 [facility] Comment on above: Order Comment: [facility] Type: BLOOD SPECIMEN Result Comment: The [place] [employer] Association (ADA) provides guidance for cutoff values for fasting glucose and random glucose. The ADA defines fasting as no caloric intake for at least 8 hours. Fasting plasma glucose results between 100 to 125 mg/dL indicate increased risk for diabetes (prediabetes). Fasting plasma glucose results greater than or equal to 126 mg/dL meet the criteria for diagnosis of diabetes. In the absence of unequivocal hyperglycemia, results should be confirmed by repeat testing. In a patient with classic symptoms of hyperglycemia or hyperglycemic crisis, random plasma glucose results greater than or equal to 200 mg/dL meet the criteria for diagnosis of diabetes. Reference: Standards of Medical Care in Diabetes 2016, [place] [employer]. Diabetes Care. 2016.39(Suppl 1). Performed By: #### 3 040-3, 75952-0 #### [facility] CLIA [id number] [address] [place] [address] Potassium [Moles/Vol] 3.1 mmol/L Low 3.7-5.1 [facility] Comment on above: Order Comment: Speci men Type: BLOOD SPECIMEN Performed By: #### 3 040-3, 29151-8 #### [facility] CLIA [id number] [address] [place] [address] Protein [Mass/Vol] 6.8 g/dL Normal 6.3-8.0 [facility] Comment on above: Order Comment: Speci men Type: BLOOD SPECIMEN Performed By: #### 3 040-3, #### [facility] CLIA [id number] [address] [place] [address] Sodium [Moles/Vol] 138 mmol/L Normal 136-144 [facility] Comment on above: Order Comment: Speci men Type: BLOOD SPECIMEN Performed By: #### 3 040-3, 82463-0 #### [facility] CLIA [id number] [address] [place] [address] Urea nitrogen [Mass/Vol] 4 mg/dL Low 9-24 [facility] Comment on above: Order Comment: Speci men Type: BLOOD SPECIMEN Performed By: #### 3 040-3, 93084-3 #### [facility] CLIA [id number] [address] [place] [address] ED NOTEon 03-29-2020 ED NOTE HNO ID: [id number] Author: Trang (Rn) GREG Rapp Service: Emergency Medicine Author Type: Registered Nurse Type: ED Notes Filed: 03/29/2020 3:41 PM Note Text: US notified pt ready Normal [facility] ED NOTE HNO ID: [id number] Author: Vicky Bender MD Service: Emergency Medicine Author Type: Physician Type: ED Notes Filed: 05/02/2020 10:32 PM Note Text: Attending Note I evaluated the patient and personally participated in the sinha components. I agree with the resident's findings and plan as documented and have discussed the case and management of the patient's care with the resident. Patient is a 39-year-old male with a history of hiatal hernia, inguinal hernia repair presents with abdominal pain. He is scheduled to have cholecystectomy in 13 days. He reports worsening epigastric abdominal pain in the last 2 days. He reports decreased appetite, and nausea and vomiting all the time. He denies fever or chills. On exam, patient is well-appearing. He has tachycardia of 118. He is afebrile. Lungs were clear to auscultation bilaterally without wheezes or crackles. Cardiovascular exam demonstrates tachycardia with regular rhythm. No murmurs or gallops auscultated. Abdomen soft and tender to palpation. Positive Matos sign. No McBurney's point tenderness. Negative Rovsing's sign. Pulses are 2+ equal bilaterally in his upper and lower extremities. We plan to obtain basic labs, lipase to assess for pancreatitis, and ultrasound. Morphine and Zofran will be provided for his abdominal pain, and nausea. Further management will depend on imaging and lab findings. Lab shows elevated hepatic enzymes. US shows... US ABDOMEN RUQ (POC) ED USE ONLY Final Result US ABD RT UPPER QUADRANT Final Result IMPRESSION: Hepatic steatosis. Clinical Laboratory Medical Director: [facility] Transcribe Date/Time: Mar 29 2020 4:41P Dictated by : DHIRAJ MENA MD This examination was interpreted and the report reviewed and electronically signed by: DHIRAJ MENA MD on Mar 29 2020 4:42PM EST Pt was provided with morphine, ns bolus, zofran for his symptoms. Given improved symptoms, he was discharged home with instruction to follow up with surgery as scheduled. Parameters of when to return to the ED were carefully explained and specified in the discharge instructions. Signature: Vicky Bender MD Date: 03/29/2020 Time: 3:40 PM Normal [facility] ED PROV NOTEon 03-29-2020 ED PROV NOTE HNO ID: [id number] Author: Vicky Bender MD Service: Emergency Medicine Author Type: Physician Type: ED Provider Notes Filed: 06/08/2020 9:22 AM Note Text: ED Provider Note Patient Name: Tapan Dailey SERVICE DATE: 03/29/20 History Patient presents with: Abdominal Pain: Pt. c/o mid-R-sided abd pain that started yesterday. He is scheduled to have his gallbladder taken out Apr 11. He states he was told to come to ED if pain gets too severe. +N. +V all the time per the patient. 39-year-old male presents with abdominal pain. Patient states he has bad gallbladder and is scheduled to have it taken out on April 11. Patient states recently the pain has become too severe and he has had to leave work early several times. He endorses nausea and vomiting. The denies diarrhea. Says the pain starts in the epigastric region and radiates to his right upper quadrant. No fevers or chills. No chest pain or shortness of breath. PAST MEDICAL HISTORY Diagnosis Date - Chronic pain syndrome - Depression - Hiatal hernia - Other, mixed, or unspecified nondependent drug abuse, continuous abuse with both prescription and street obtained narcotics - SOB (shortness of breath) PAST SURGICAL HISTORY Procedure Laterality Date - EGD 06/30/2019 2 cm hiatal hernia, erythema in stomach and duodenum - EXTRACTION ERUPTED TOOTH/EXR age 18 - FOOT SURGERY HX Left screw in left foot - INGUINAL HERNIA REPAIR HX Left age 13 +/- - PAST SURGICAL HISTORY OF 2011 cervical disc disease - WRIST SURGERY HX Left 05/31/06 (year?) wrist (L), Dr. Ruiz -- cyst and calcium build-up, tendon repaired FAMILY HISTORY Problem Relation Age of Onset - Hypertension Father - Coronary Artery Disease Other none - Diabetes Paternal Grandfather - Colon Cancer Other none - Prostate Cancer Other none Social History Tobacco Use - Smoking status: Current Every Day Smoker Packs/day: 1.00 Years: 8.00 Pack years: 8.00 Types: Cigarettes - Smokeless tobacco: Former User Substance and Sexual Activity - Alcohol use: Yes Alcohol/week: 5.0 standard drinks Types: 2 Cans of Beer (12oz) per week - Drug use: Not Currently Comment: none since 2012 - Sexual activity: Yes Partners: Female ALLERGIES Allergen Reactions - Naproxen Rash - Vicodin [Hydrocodon* HEADACHES Review of Systems Constitutional: Negative for chills, diaphoresis and fever. HENT: Negative for congestion and rhinorrhea. Respiratory: Negative for cough and shortness of breath. Cardiovascular: Negative for chest pain and palpitations. Gastrointestinal: Positive for abdominal pain, nausea and vomiting. Negative for diarrhea. Genitourinary: Negative for difficulty urinating and dysuria. Musculoskeletal: Negative for back pain and neck stiffness. Skin: Negative for color change and pallor. Neurological: Negative for dizziness and headaches. Psychiatric/Behavioral: Negative for confusion, hallucinations and suicidal ideas. All other systems reviewed and are negative. Physical Exam BP 121/67 Pulse 118 Temp 98.2 Resp 20 Ht 6' 1 (1.85m) Wt 160 lb (72.6kg) SpO2 96% BMI 21.11 kg/(m2). O2 Therapy: Room Air Physical Exam Vitals and nursing note reviewed. Constitutional: General: He is not in acute distress. Appearance: He is well-developed. He is not diaphoretic. HENT: Head: Normocephalic and atraumatic. Right Ear: External ear normal. Left Ear: External ear normal. Cardiovascular: Rate and Rhythm: Normal rate and regular rhythm. Heart sounds: Normal heart sounds. No murmur. No friction rub. No gallop. Pulmonary: Effort: Pulmonary effort is normal. No respiratory distress. Breath sounds: Normal breath sounds. No wheezing. Abdominal: General: Bowel sounds are normal. There is no distension. Palpations: Abdomen is soft. Tenderness: There is abdominal tenderness in the right upper quadrant, epigastric area, suprapubic area and left upper quadrant. There is right CVA tenderness and guarding. Positive signs include Matos's sign. Hernia: No hernia is present. Comments: Voluntary guarding Skin: General: Skin is warm and dry. Neurological: Mental Status: He is alert and oriented to person, place, and time. Diagnostic Testing ED Labs Ordered and Reviewed - No data to display Procedures ED Course / Clinical Impression Clinical Impressions as of Mar 29 2217 Right upper quadrant abdominal pain MDM / Disposition / Plan 39-year-old male presents with abdominal pain. Patient is tachycardic to 118. Remainder of vitals within normal limits. Patient is nontoxic-appearing but appears to be in significant discomfort secondary to his abdominal pain. Differential diagnoses include biliary colic, choledocholithiasis, cholecystitis, kidney stone, pyelonephritis. Patient given 1 L normal saline, 4 mg morphine, 4 mg Zofran. Blood work shows transaminitis with AST o (more content not included)... 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 States that he began having some abdominal pain yesterday. He believes it is gallbladder. He is scheduled to have a cholecystectomy in 13 days. He states he was told to come in if he got worse. He does report a history of gallstones. Reports that he is nauseous and vomiting all the time. Patient denies any fevers. BRIEF EXAM: Awake and Alert RRR CTAB INTAKE WORKUP: Bloodwork: CBC CMP Lipase Urinalysis SIGNATURE: HANSA Pittman [facility] HISTORY PHYSICALon HISTORY PHYSICAL HNO ID: [id number] Author: Janes Rondon DO Service: General Surgery Author Type: Resident Type: HANDP Filed: 03/29/2020 7:15 PM Note Text: -------- Attestation signed by Jersey Dewitt at 03/30/2020 8:00 PM I discussed patient, including all pertinent findings, with resident. The patient was not examined by the attending. I reviewed the resident's note and I agreed with the resident's assessment and plan unless otherwise noted. -------- Elective General Surgery Note This note was partially generated using [employer] voice recognition system, and there may be some incorrect words, spellings, and punctuation that were not noted in checking the note before saving. SERVICE DATE: 03/29/2020 SERVICE TIME: 6:03 PM REASON: Abd pain REQUESTING PHYSICIAN: Emergency department PRIMARY CARE PHYSICIAN: uLis Carnes MD Subjective HISTORY OF PRESENT ILLNESS: Mr. Dailey is a 39 year old male with a PMH as listed below and significant for chronic pain syndrome, depression, hiatal hernia, history of chronic pancreatitis and alcohol abuse who presented 03/29/2020 with a chief complaint of abdominal pain, chronic in nature. Patient states his abdominal pain has been worse over the last 2 days. He reports decreased appetite with nausea and vomiting. Describes his vomiting as nonbloody. He denies any fevers or chills. He denies any changes in his bowel or bladder habits including, no dysuria no frequency, no hematuria or hematochezia. He states his urine has been dark in color but denies any acholic stools. He does describe some generalized itching. He admits to drinking nearly every day, states he takes 5-6 rum and Cokes per day. Notes that this morning he woke up shaking however this has resolved. He notes that he had one episode of withdrawal in the past when he was admitted to the hospital for extended period of time. He has had several hospitalizations for pancreatitis in the past, his lipase was normal in the emergency department. He is working with [facility] for treatment of his alcohol use. He was scheduled to have an elective cholecystectomy on 04/11/[address] Osorio. Past surgical history is significant for: Inguinal hernia repair PAST MEDICAL HISTORY Diagnosis Date - Chronic pain syndrome - Depression - Hiatal hernia - Other, mixed, or unspecified nondependent drug abuse, continuous abuse with both prescription and street obtained narcotics - SOB (shortness of breath) PAST SURGICAL HISTORY Procedure Laterality Date - EGD 06/30/2019 2 cm hiatal hernia, erythema in stomach and duodenum - EXTRACTION ERUPTED TOOTH/EXR age 18 - FOOT SURGERY HX Left screw in left foot - INGUINAL HERNIA REPAIR HX Left age 13 +/- - PAST SURGICAL HISTORY OF 2011 cervical disc disease - WRIST SURGERY HX Left 05/31/06 (year?) wrist (L), Dr. Ruiz -- cyst and calcium build-up, tendon repaired FAMILY HISTORY Problem Relation Age of Onset - Hypertension Father - Coronary Artery Disease Other none - Diabetes Paternal Grandfather - Colon Cancer Other none - Prostate Cancer Other none Social History Tobacco Use - Smoking status: Current Every Day Smoker Packs/day: 1.00 Years: 8.00 Pack years: 8.00 Types: Cigarettes - Smokeless tobacco: Former User Substance Use Topics - Alcohol use: Yes Alcohol/week: 5.0 standard drinks Types: 2 Cans of Beer (12oz) per week - Drug use: Not Currently Comment: none since 2012 (Not in a hospital admission) No current facility-administered medications for this encounter. ALLERGIES Allergen Reactions - Naproxen Rash - Vicodin [Hydrocodon* HEADACHES COMPLETE REVIEW OF SYSTEMS: PAIN ASSESSMENT: Positive for pain. GENERAL: No weight loss, malaise or fevers NECK: Negative for lumps or significant neck swelling RESPIRATORY: Negative for cough, dyspnea or shortness of breath CARDIOVASCULAR: Negative for chest pain or palpitations GI: Positive for nausea and emesis, negative for constipation or diarrhea : No history of dysuria, frequency or incontinence MUSCULOSKELETAL: Negative for joint pain or swelling SKIN: Negative for lesions, rash, and itching NEURO: No history of headaches or seizures Objective PHYSICAL EXAM: GENERAL: Alert, no distress, cooperative HEENT: normocephalic, atraumatic, EOMI NECK: Trachea midline, no JVD SKIN: Some excoriations for scratching, color, texture, turgor normal. No rashes or lesions. LUNGS: Normal respiratory rate and effort, on room air CARDIAC: Tachycardic, BP as below, good peripheral perfusion ABDOMEN: Soft, nondistended, tender in epigastric and RUQ, equivocal matos sign s/s to patient guarding. EXTREMITIES: normal, no deformities, edema, clubbing or skin discoloration. Good capillary refill. NEURO: (more content not included)... Normal [facility] Lipase SerPl-cCncon 03-29-19 21 Lipase [Catalytic activity/Vol] 26 U/L Normal 16-61 [facility] Comment on above: Order Comment: Speci men Type: BLOOD SPECIMEN Performed By: #### 3 040-3, 77976-3 #### [facility] CLIA [id number] [address] [place] [address] US ABD RIGHT UPPER QUADRANTo n 03-29-2020 US ABD RIGHT UPPER QUADRANT Final Report DATE OF EXAM: Mar 29 2020 4:39PM [place] 1032 - US ABD RIGHT UPPER QUADRANT / PROCEDURE REASON: RUQ abdominal pain Physician Interpretation EXAMINATION: RIGHT UPPER QUADRANT ULTRASOUND CLINICAL HISTORY: Right upper quadrant abdominal pain TECHNIQUE: Sonography of the right upper quadrant was performed. Images were obtained and stored in a permanent archive. MQ: URUQ_2 COMPARISON: None. RESULT: Pancreas: Normal sonographic appearance. Portions obscured: tail Liver: Echotexture: Normal, homogeneous. Echogenicity: Increased Surface contour: Smooth Lesions: None. Biliary: No intrahepatic biliary duct dilation. CBD: 0.4 cm at the hilum. Gallbladder: Normal caliber -Contents: No cholelithiasis -Wall: Normal -Other: No pericholecystic fluid. Right Kidney: No hydronephrosis. 11.6 cm in length. Ascites: None. IMPRESSION: Hepatic steatosis. Clinical Laboratory Medical Director: [facility] Transcribe Date/Time: Mar 29 2020 4:41P Dictated by : DHIRAJ MENA MD This examination was interpreted and the report reviewed and electronically signed by: DHIRAJ MENA MD on Mar 29 2020 4:42PM EST Normal [facility] Urinalysis complete panel (U )on 03-29-2020 Bacteria LM.HPF (Urine sed) [#/Area] None Seen Normal None Seen [facility] Comment on above: Order Comment: Speci men Type: URINE SPECIMEN Performed By: #### 2 4356-8 ####[facility]IA [id number] [place] [address] Bilirubin Ql (U) Negative Normal Negative [facility] Comment on above: Order Comment: Speci men Type: URINE SPECIMEN Performed By: #### 2 4356-8 ####[facility]IA [id number] [place] [address] Clarity (Unsp spec) Clear Normal Clear [facility] Comment on above: Order Comment: Speci men Type: URINE SPECIMEN Performed By: #### 2 4356-8 ####[facility]IA [id number] [place] [address] Color (U) Dark Yellow Abnormal Yellow [facility] Comment on above: Order Comment: Speci men Type: URINE SPECIMEN Performed By: #### 2 4356-8 ####[facility] [id number] [place] [address] Epithelial cells LM.HPF (Urine sed) [#/Area] 0.3 /[HPF] Normal [facility] Comment on above: Order Comment: Speci men Type: URINE SPECIMEN Performed By: #### 2 4356-8 ####[facility] [id number] [place] [address] Glucose Test strip (U) [Mass/Vol] Negative Normal Negative [facility] Comment on above: Order Comment: Speci men Type: URINE SPECIMEN Performed By: #### 2 4356-8 ####[facility]CLIA [id number] [place] [address] Hemoglobin Ql (U) Negative Normal Negative [facility] Comment on above: Order Comment: Speci men Type: URINE SPECIMEN Performed By: #### 2 4356-8 ####[facility]ORYCLIA [id number] [place] [address] Hyaline casts (Urine sed) [#/Area] 0 /[LPF] Normal 0 /LPF [facility] Comment on above: Order Comment: Speci men Type: URINE SPECIMEN Performed By: #### 2 4356-8 ####[facility]ORYCLIA [id number] [place] [address] Ketones Ql (U) Negative Normal Negative [facility] Comment on above: Order Comment: Speci men Type: URINE SPECIMEN Performed By: #### 2 4356-8 ####[facility] [id number] [place] [address] Leukocyte esterase Test strip Ql (U) Negative Normal Negative [facility] Comment on above: Order Comment: Speci men Type: URINE SPECIMEN Performed By: #### 2 4356-8 ####[facility] [id number] [place] [address] Nitrite Ql (U) Negative Normal Negative [facility] Comment on above: Order Comment: Speci men Type: URINE SPECIMEN Performed By: #### 2 4356-8 ####[facility]ORYCLIA [id number] [place] [address] pH (U) 7.0 [pH] Normal 5.0-8.0 [facility] Comment on above: Order Comment: Speci men Type: URINE SPECIMEN Performed By: #### 2 4356-8 ####[facility]ORYCLIA [id number] [place] [address] Protein (U) [Mass/Vol] Negative Normal Negative [facility] Comment on above: Order Comment: Speci men Type: URINE SPECIMEN Performed By: #### 2 4356-8 ####[facility]ORYCLIA [id number] [place] [address] RBC LM.HPF (Urine sed) [#/Area] 0-3 /HPF Normal 0-3 /HPF [facility] Comment on above: Order Comment: Speci men Type: URINE SPECIMEN Performed By: #### 2 4356-8 ####[facility]ORYCLIA [id number] [place] [address] Specific gravity (U) [Rel density] 1.010 Normal 1.005-1.030 [facility] Comment on above: Order Comment: Speci men Type: URINE SPECIMEN Performed By: #### 2 4356-8 ####[facility]ORYCLIA [id number] [place] [address] Urobilinogen Ql (U) 4.0 EU/dL Abnormal 0.2-1.0 EU/dL [facility] Comment on above: Order Comment: Speci men Type: URINE SPECIMEN Performed By: #### 2 4356-8 ####[facility]ORYCLIA [id number] [place] [address] WBC LM.HPF (Urine sed) [#/Area] 0-5 /HPF Normal 0-5 /HPF [facility] Comment on above: Order Comment: Speci men Type: URINE SPECIMEN Performed By: #### 2 4356-8 ####[facility]ORYIA [id number] [place] [address] [facility] Tele[facility] ([facility]) -------- [place] ([id number]) 1980 M [place] Date Time Provider Department 03/28/20 ELIEZER OSORIO During your visit today, we recorded the following information about you: Shyann Bejarano LPN, LPN 03/28/2020 8:57 AM Signed PATIENT CALLING, C/O HAVING EXTREME ABDOMINAL PAIN WITH THE SHAKES AND WAS SENT HOME FROM WORK. PATIENT SCHEDULED FOR LAP GABY ON 04/11/20. NOTIFIED PATIENT THAT DR. OSORIO IS OUT OF THE OFFICE UNTIL NEXT WEEK AND ADVISED HIM TO GO TO [facility] FOR EVALUATION. EXPLAINED TO PATIENT IF THE ER DOCTORS FEEL NECESSARY THEY WILL ADMIT HIM TO HAVE SURGERY SOONER. PATIENT VOICED UNDERSTANDING. Shyann Bejarano LPN Allergies As of Date: 03/28/2020 Noted Allergy Reaction NAPROXEN 04/25/2005 2 - Rash NARCOTICS (OPIOIDS - MORPHINE FERN*12/17/2007 Comments: Patient asked to have documented NO NARCOTICS do to recurrent history of abuse VICODIN (HYDROCODONE-ACETAMINOPH E*07/09/2005 Comments: HEADACHES Date Reviewed: 03/13/2020 Reviewed by: Eliezer Osorio - Fully Assessed Reason for Visit: Patient Update [1234] Cmt: ABDOMINAL PAIN/SHAKING Prescriptions as of 03/28/2020 Sig: FOLIC ACID 1 MG TABLET IBU 400 MG TABLET ONDANSETRON 4 MG DISINTEGRATI* OMEPRAZOLE 20 MG CAPSULE,EVERARDO* Take 2 capsules by mouth once* Patient not taking: Reported on 02/21/2020 BUPRENORPHINE 8 MG-NALOXONE 2* Dissolve 1 Film under the ton* Problem List As Of Date 03/28/2020 Noted Resolved Patellar Tendinitis [M76.50] 07/28/2005 12/08/2008 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 Predominant Disturbance of Emotions [R45.89] 10/01/2007 12/08/2008 Unspecified Adjustment Reaction [F43.20] 10/01/2007 12/08/2008 Sterilization [Z30.2] 11/26/2007 12/08/2008 Other, Mixed, or Unspecified Nondependent Drug *12/17/2007 Class: Chronic More... Routine general medical examination at a health*12/08/2008 11/28/2011 Class: Chronic More... Tobacco Use Disorder [F17.200] 12/08/2008 More... Chronic pain syndrome [G89.4] 11/28/2011 More... Encounter Status:Closed by SHYANN BEJARANO on 03/28/20 [facility] 03-13-2020 [facility] Patient:Julieta Dailey MRN: Height:6' 1(1.854 m) Weight:160 lb (72.576 kg) Outpatient Medications as of 04/11/20: ondansetron (ZOFRAN) 4 mg tablet awbsnv-mbrqfuun-fufbnii (CREON) 6,000-19,000 -30,000 unit cpDR folic acid 1 mg tablet Buprenorphine-Naloxone (SUBOXONE) 8-2 mg film Admission/Clinic Administered Medications as of 04/11/20: lidocaine 10 mg/mL (1 %) 1-2 mg injection (XYLOCAINE) lactated ringers infusion ceFAZolin iv piggyback 2 g in D5W (iso-osmotic) 100 mL (ANCEF) Problem List: Chondromalacia of patella [M22.40] Attention deficit disorder with hyperactivity(314.01) [F90.9] Other, mixed, or unspecified nondependent drug abuse, unspecified [F19.10] Tobacco use disorder [F17.200] Chronic pain syndrome [G89.4] Allergies: Naproxen Date Verified: 04/11/20 Lab Values Lab Value Units Date High Low POTA* 3.1 mmol/L 03/29/2020 5.1 3.7 JARROD* 46.8 % 03/29/2020 51.0 39.0 Progress Notes ([facility]): Shyann Bejarano LPN, MELINDA 03/28/2020 8:57 AM Signed PATIENT CALLING, C/O HAVING EXTREME ABDOMINAL PAIN WITH THE SHAKES AND WAS SENT HOME FROM WORK. PATIENT SCHEDULED FOR LAP GABY ON 04/11/20. NOTIFIED PATIENT THAT DR. OSORIO IS OUT OF THE OFFICE UNTIL NEXT WEEK AND ADVISED HIM TO GO TO ER FOR EVALUATION. EXPLAINED TO PATIENT IF THE ER DOCTORS FEEL NECESSARY THEY WILL ADMIT HIM TO HAVE SURGERY SOONER. PATIENT VOICED UNDERSTANDING. Shyann Bejarano LPN Progress Notes ([facility]): Eliezer Osorio MD 03/12/2020 2:22 PM Signed AMBULATORY TELEPHONE VISIT Tapan Dailey has consented to this telephone encounter. Persons Present: patient Chief Complaint/Reason: Test results HPI: 39-year-old male with gallstone and alcohol pancreatitis. He is drinking less. He still has pain in the epigastric region. He has no nausea or vomiting. He has no fevers or chills. He denies any jaundice. Data Reviewed: Most recent imaging Assessment: No diagnosis found. I reviewed his CT scan. There is no evidence of any chronic pancreatitis changes on the CT scan. Had a long discussion with him and told him he would need a laparoscopic cholecystectomy. Risk and benefits were discussed with him including but not exclusive to bleeding infection possibility of conversion open procedure were discussed with him he wished to move forward the operation. Plan: Laparoscopic cholecystectomy with grams Total Time Spent: 11 minutes Eliezer Osorio MD [facility] 03-01-2020 [facility] Telephone ([facility]1) -------- TAPAN DAILEY ([id number]) 1980 M [place] Date Time Provider Department 03/01/20 ELIEZER OSORIO [facility] During your visit today, we recorded the following information about you: Allergies As of Date: 03/01/2020 Noted Allergy Reaction NAPROXEN 04/25/2005 2 - Rash NARCOTICS (OPIOIDS - MORPHINE FERN*12/17/2007 Comments: Patient asked to have documented NO NARCOTICS do to recurrent history of abuse VICODIN (HYDROCODONE-ACETAMINOPH E*07/09/2005 Comments: HEADACHES Date Reviewed: 02/21/2020 Reviewed by: Suzy Palacios) Neal - Fully Assessed Reason for Visit: Future Appointment [256] Cmt: CT ABD/PEL W IVCON scheduled for 03/08/2019 @ 9:30 am at [facility]. 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 Predominant Disturbance of Emotions [R45.89] 10/01/2007 12/08/2008 Unspecified Adjustment Reaction [F43.20] 10/01/2007 12/08/2008 Sterilization [Z30.2] 11/26/2007 12/08/2008 Other, Mixed, or Unspecified Nondependent Drug *12/17/2007 Class: Chronic More... Routine general medical examination at a health*12/08/2008 11/28/2011 Class: Chronic More... Tobacco Use Disorder [F17.200] 12/08/2008 More... Chronic pain syndrome [G89.4] 11/28/2011 More... Encounter Status:Closed by SUZY DE JESUS CMA on 03/01/20 [facility] 02-21-2020 [facility] Office Visit ([facility] 1) -------- TAPAN DAILEY ([id number]) 1980 M [place] Date Time Provider Department 02/21/20 11:00 AM ELIEZER OSORIO [facility] During your visit today, we recorded the following information about you: Pulse Respiration Blood pressure Weight 96/minute 16/minute 96/64 63 kg Height 1.854 m Eliezer Osorio MD 02/21/2020 11:47 AM Signed Office will call with date and time for CT scan Eliezer Osorio MD 03/13/2020 8:45 AM Signed Patient referred by: Margot Adler MD [address] [facility] [address] HPI: This is a new patient consult from Dr. Adler. 39-year-old male with several hospitalizations for pancreatitis. He has been a heavy drinker but is currently cutting back. He was also worked up and found to have gallstones. He has pain in the epigastric and right upper quadrant. He has no nausea or vomiting. He has had weight loss. He is working with [facility] and other treatment entities for his alcohol use. He denies any jaundice. He has never had any surgery in his pancreas in the past. . PAST MEDICAL HISTORY Diagnosis Date - Chronic pain syndrome - Depression - Hiatal hernia - Other, mixed, or unspecified nondependent drug abuse, continuous abuse with both prescription and street obtained narcotics - SOB (shortness of breath) PAST SURGICAL HISTORY Procedure Laterality Date - EGD 06/30/2019 2 cm hiatal hernia, erythema in stomach and duodenum - EXTRACTION ERUPTED TOOTH/EXR age 18 - FOOT SURGERY HX Left screw in left foot - INGUINAL HERNIA REPAIR HX Left age 13 +/- - PAST SURGICAL HISTORY OF 2011 cervical disc disease - WRIST SURGERY HX Left 05/31/06 (year?) wrist (L), Dr. Ruiz -- cyst and calcium build-up, tendon repaired FAMILY HISTORY Problem Relation Age of Onset - Hypertension Father - Coronary Artery Disease Other none - Diabetes Paternal Grandfather - Colon Cancer Other none - Prostate Cancer Other none Social History Tobacco Use - Smoking status: Current Every Day Smoker Packs/day: 1.00 Years: 8.00 Pack years: 8.00 Types: Cigarettes - Smokeless tobacco: Former User Substance Use Topics - Alcohol use: Yes Alcohol/week: 5.0 standard drinks Types: 2 Cans of Beer (12oz) per week - Drug use: Not Currently Comment: none since 2012 Current Outpatient Medications Medication Sig - folic acid 1 mg tablet - IBU 400 mg tablet - ondansetron orally disintegrating (ZOFRAN ODT) 4 mg disintegrating tablet - Buprenorphine-Naloxone (SUBOXONE) 8-2 mg film Dissolve 1 Film under the tongue once daily. - omeprazole (PRILOSEC) 20 mg capsule Take 2 capsules by mouth once daily. (Patient not taking: Reported on 02/21/2020 ) No current facility-administered medications for this visit. ALLERGIES Allergen Reactions - Naproxen Rash - Narcotics [Opioids * Patient asked to have documented NO NARCOTICS do to recurrent history of abuse - Vicodin [Hydrocodon* HEADACHES REVIEW OF SYSTEMS: GENERAL: Weight loss GI: Negative for nausea , vomiting, diarrhea, constipation and signs of jaundice Positive for abdominal pain RUQ PHYSICAL EXAM: BP 96/64 Pulse 96 Resp 16 Ht 6' 1 (1.85m) Wt 139 lb (63.1kg) SpO2 97% BMI 18.34 kg/(m2). GENERAL APPEARANCE: Well appearing, alert, in no acute distress, well-hydrated, well nourished.. ABDOMEN: Soft. There is tenderness to palpation the right upper quadrant. There is no rebound or guarding. NEURO: Alert, oriented x3, no asterixis, speech clear and articulate and CATES HEART: regular rate and rhythm, without murmur LUNGS: clear to auscultation, without rales or wheeze, good air exchange DATA: Diagnostic tests reviewed for today's visit: Most recent imaging A total of 30 minutes was spent in direct patient contact. Greater than 50% of the direct patient contact time was spent in counseling or coordination of care. ASSESSMENT / PLAN: 1. Other chronic pancreatitis (HCC) I reviewed his ultrasound. This showed gallstones. I do long discussion with him and told him I would like to get a CT scan to better assess his pancreas. I like to ensure he does not have findings of chronic pancreatitis on the CT scan. If so he may need surgical resection of this area. I will see him in the office after he gets a CT scan performed. - COMP METABOLIC PANEL; Future - CT ABD/PEL W IVCON; Future - LIPASE BLD; Future Noaman Ali, MD Please Note: This office note has been created using [employer], a speech recognition software program, and may contain errors including punctuation, grammar, spelling, gender, and inappropriate words or phrases that pertain to the sytem. ? Referring Provider: MARGOT ADLER [[id number]] Allergies As of Date: 02/21/2020 Noted Allergy Reaction NAPROXEN 04/25/2005 2 - Rash NARCOTICS (OPIOIDS - MORPHINE FERN*12/17/2007 Comments: Patient aske (more content not included)... Normal [facility] CBCon 02-03-2020 Erythrocyte distribution width (RBC) [Ratio] 12.3 % Normal 11.5 - 14.5 [facility] Comment on above: Performed By: #### V TA #### [facility] [address] [place], [place] [id number] Hematocrit (Bld) [Volume fraction] 40.4 % Low 41.0 - 52.0 [facility] Comment on above: Performed By: #### V TA #### [facility] [address] [place], [place] [id number] Hemoglobin (Bld) [Mass/Vol] 13.8 g/dL Normal 13.5 - 17.5 [facility] Comment on above: Performed By: #### V TA #### [facility] [address] [place], [place] [id number] MCHC (RBC) [Mass/Vol] 34.2 g/dL Normal 32.0 - 36.0 [facility] Comment on above: Performed By: #### V TA #### [facility] [address] [place], [place] [id number] MCV (RBC) [Entitic vol] 102 fL High 80 - 100 [facility] Comment on above: Performed By: #### V TA #### [facility] [address] [place], [place] [id number] Nucleated RBC/100 WBC (Bld) [Ratio] 0.0 /100 WBC Normal 0.0-0.0 [facility] Comment on above: Performed By: #### V TA #### [facility] [address] [place], [place] [id number] Platelets (Bld) [#/Vol] 108 10*3/uL Low 150 - 450 [facility] Comment on above: Performed By: #### V TA #### [facility] [address] [place], [place] [id number] RBC (Bld) [#/Vol] 3.98 x10E12/L Low 4.50 - 5.90 [facility] Comment on above: Performed By: #### V TA #### [facility] [address] [place], [place] [id number] WBC (Bld) [#/Vol] 6.2 10*3/uL Normal 4.4 - 11.3 [facility] Comment on above: Performed By: #### V TA #### [facility] [address] [place], [place] [id number] Discharge [id number] Discharge Profile2 Discharge Orders: Anticipated Discharge Date: Anticipated Discharge [id number] Anticipated Discharge Time15:43 Problem List: Admitting Dx: Pancreatitis, acute: Catalog Name: Acute pancreatitis without necrosis or infection, unspecified Additional Dx: Alcohol withdrawal syndrome: Catalog Name: Alcohol dependence with withdrawal, unspecified Hospital Providers: Provider RoleProvider Name Kimberly Luke William J Activity: activity as tolerated. May shower. Diet: Dietlow fat Additional Orders: Additional Instructions 1. Take magnesium oxide daily 400 mg by mouth. You will need it if you continue drinking as you loose magnesium through urine 2. I have attached a list of alcoholic recovery resources. If you wish to stop drinking, please call one of them: Recovery Resources: Contact Us To schedule an appointment, please call . Warm Line , open 9:00am-1:00am, including holidays Visit us or send mail to: [address] [place] [address] Area: [address] [place], [place] [address] Client Medical Records Rachell Jung: [address] [place], [place] [address] Client Medical Records Frederic: [id number] [facility], [address] [place], [place] [address] Client Medical Records Call Provider If (Homegoing Patients): Breathing harder than normal or having retractions. Temperature is greater than 102 degrees. Chills. Drinking less than normal. Urinating less than normal, over 1 day. Urinating less than 4 times per day. Vomiting (throwing up) and not able to eat or drink for 12 hours. 3 or more loose, watery bowel movements in 24 hours (diarrhea). Provider FINAL REVIEW of Orders: Final Review: Final Review of Medication Reconciliation and Orders Completedby Physician Reviewing ProviderKimberly Pearson DO at 03-Feb-2020 15:48:18 Appointments: Follow-Up Appointment 01: Physician/Dept/Duane Carnes - Primary Care Scheduled Date/[id number] 11:25 LocationPlease DO NOT come into the Office, Provider Will Contact Patient Via Virtual Visit or Phone Visit. Office will call to confirm appointment. Phone [phone] CommentsPlease check your MyChart for virtual instructions. Please be available 10-15 minutes early, discharge summary, and current list of medications & dosages. If unable to keep this appointment, please call to cancel at least 24 hrs prior to appointment. Electronic Signatures: Martin Solis (PT ACC REP) (Signed 03-Feb-2020 16:48) Authored: Discharge Orders, Appointments Kimberly Sanchez () (Signed 03-Feb-2020 15:48) Authored: Discharge Orders, Provider FINAL REVIEW of Orders, Appointments, Gold Form - Nursing Coordinator Summary Last Updated: 03-Feb-2020 16:48 by Martin Solis (PT ACC REP) Normal [facility] HEPATIC FUNCTION PANELon ALP [Catalytic activity/Vol] 115 U/L Normal 33 - 120 [facility] Comment on above: Performed By: #### C BCDF #### [facility] [address] [place] [address] ALT [Catalytic activity/Vol] 59 U/L High 10 - 52 [facility] Comment on above: Result Comment: Hue ents treated with Sulfasalazine may generate falsely decreased results for ALT. Performed By: #### C BCDF #### [facility] [address] [place] [address] AST [Catalytic activity/Vol] 101 U/L High 9 - 39 [facility] Comment on above: Performed By: #### C BCDF #### [facility] [address] [place] [address] Bilirubin [Mass/Vol] 2.8 mg/dL High 0.0 - 1.2 [facility] Comment on above: Performed By: #### C BCDF #### [facility] [address] [place] [address] Bilirubin.direct [Mass/Vol] 0.9 mg/dL High 0.0 - 0.3 [facility] Comment on above: Performed By: #### C BCDF #### [facility] [address] [place] [address] Protein [Mass/Vol] 6.5 g/dL Normal 6.4 - 8.2 [facility] Comment on above: Performed By: #### C BCDF #### [place] [address] [place] [address] HEPATITIS PANEL,ACUTE (HCFA) on 02-03-2020 HEPATITIS B CORE AB,IGM NONREACTIVE Normal NONREACTIVE [facility] Comment on above: Result Comment: Resu lts from patients taking biotin supplements or receiving high-dose biotin therapy should be interpreted with caution due to possible interference with this test. Providers may contact their local laboratory for further information. Performed By: #### C BCDF #### [facility] [address] [place] [address] HEPATITIS C AB NONREACTIVE Normal NONREACTIVE [facility] Comment on above: Result Comment: Resu lts from patients taking biotin supplements or receiving high-dose biotin therapy should be interpreted with caution due to possible interference with this test. Providers may contact their local laboratory for further information. Performed By: #### C BCDF #### [facility] [address] [place] [address] HEPATITIS A AB-IGM NONREACTIVE Normal NONREACTIVE [facility] Comment on above: Result Comment: Biot in interference may cause falsely decreased results. Patients taking a Biotin dose of up to 5 mg/day should refrain from taking Biotin for 24 hours before sample collection. Providers may contact their local laboratory for further information. Performed By: #### C BCDF #### [facility] [address] [place] [address] HEP.B SURFACE AG NONREACTIVE Normal NONREACTIVE [facility] Comment on above: Result Comment: Biot in interference may cause falsely decreased results. Patients taking a Biotin dose of up to 5 mg/day should refrain from taking Biotin for 24 hours before sample collection. Providers may contact their local laboratory for further information. Performed By: #### C BCDF #### [facility] [address] [place] [id number] Lab Specimen Source Normal [facility] Comment on above: Performed By: #### C BCDF #### [facility] [address] [place] [address] LACTATEon 02-03-2020 Lactate [Moles/Vol] 0.6 mmol/L Normal 0.4 - 2.0 [facility] Comment on above: Result Comment: Kalyn puncture immediately after or during the administration of Metamizole may lead to falsely low results. Testing should be performed immediately prior to Metamizole dosing. Performed By: #### C BCDF #### [facility] [address] [place] [address] LIPASEon 02-03-2020 Lipase [Catalytic activity/Vol] 13 U/L Normal 9 - 82 [facility] Comment on above: Result Comment: Kalyn puncture immediately after or during the administration of Metamizole may lead to falsely low results. Testing should be performed immediately prior to Metamizole dosing. Performed By: #### C OAGS #### [facility] [address] [place], [place] MAGNESIUMon 02-03-2020 Magnesium [Mass/Vol] 1.46 mg/dL Low 1.60 - 2.40 [facility] Comment on above: Performed By: #### C BCDF #### [facility] [address] [place] [address] RENAL FUNCTION PANELon 02-02 Albumin [Mass/Vol] 3.6 g/dL Normal 3.4 - 5.0 [facility] Comment on above: Performed By: #### R ENAL #### [facility] [address] [place] [address] Performed By: #### C BCDF #### [facility] [address] [place] [address] Anion gap [Moles/Vol] 13 mmol/L Normal 10 - 20 [facility] Comment on above: Performed By: #### R ENAL #### [facility] [address] [place] [address] Calcium [Mass/Vol] 9.4 mg/dL Normal 8.6 - 10.6 [facility] Comment on above: Performed By: #### R ENAL #### [facility] [address] [place] [address] Chloride [Moles/Vol] 99 mmol/L Normal 98 - 107 [facility] Comment on above: Performed By: #### R ENAL #### [facility] [address] [place] [address] Creatinine [Mass/Vol] 0.48 mg/dL Low 0.50 - 1.30 [facility] Comment on above: Performed By: #### R ENAL #### [facility] [address] [place] [address] GFR- AM. >60 Normal >60 [facility] Comment on above: Result Comment: CALC ULATIONS OF ESTIMATED GFR ARE PERFORMED USING THE MDRD STUDY EQUATION FOR THE IDMS-TRACEABLE CREATININE METHODS. CLIN CHEM 2007;53:766-72 Performed By: #### R ENAL #### [facility] [address] [place] [address] GFR-NON AM. >60 Normal >60 [facility] Comment on above: Performed By: #### R ENAL #### [facility] [address] [place] [address] Glucose [Mass/Vol] 97 mg/dL Normal 74 - 99 [facility] Comment on above: Performed By: #### R ENAL #### [facility] [address] [place] [address] HCO3 (Bld) [Moles/Vol] 29 mmol/L Normal 21 - 32 [facility] Comment on above: Performed By: #### R ENAL #### [facility] [address] [place] [address] Phosphate [Mass/Vol] 3.3 mg/dL Normal 2.5 - 4.9 [facility] Comment on above: Result Comment: The performance characteristics of phosphorus testing in heparinized plasma have been validated by the individual laboratory site where testing is performed. Testing on heparinized plasma is not approved by the FDA; however, such approval is not necessary. Performed By: #### R ENAL #### [facility] [address] [place] [address] Potassium [Moles/Vol] 3.7 mmol/L Normal 3.5 - 5.3 [facility] Comment on above: Performed By: #### R ENAL #### [facility] [address] [place] [address] Sodium [Moles/Vol] 137 mmol/L Normal 136 - 145 [facility] Comment on above: Performed By: #### R ENAL #### [facility] [address] [place] [address] Urea nitrogen [Mass/Vol] 5 mg/dL Low 6 - 23 [facility] Comment on above: Performed By: #### R ENAL #### [facility] [address] [place] [address] ALCOHOLon 02-02-2020 Ethanol [Mass/Vol] 254 mg/dL Abnormal [facility] Comment on above: Result Comment: FOR MEDICAL USE ONLY. . REF VALUES <10 Performed By: #### A LC #### [facility] [address] [place] [address] Admission Risk Screen - Adul ton 02-02-2020 Admission Risk Screen - Adult Allergies: Allergies: No Known Allergies: Patient Verification: New W ID Band Applied in my Departmentyes Patient Identity Verified Bypatient ID Band FULL Name, include Middle, spelling matches patient's ID used for verificationyes ID Band Matches Patient ID used for Verficationyes ID Band MRN Matches EMR MRNyes Visitor Restriction: Coronavirus Visitor Restriction: Reasonable restrictions to in-person visitors will be observed due to current coronavirus pandemic. Travel History: COVID-19 Screening Completedno exposure or symptoms Advance Directive: Advance Directive/DNRno (1) Advance Directive Information Givenpatient/family declined López Fall Screen: History of falling (immediate or previous)no (0) Secondary Diagnosisno (0) Intravenous Therapy/ Heparin/Saline Lockyes (20) Gait/Transferringnormal/ bedrest/wheelchair (0) Ambulatory Aidsnone/bedrest/nurse assist (0) Mental Statusoriented to own ability (0) Score: Low risk (<25). Moderate risk (25-44). High risk (>44).20 López InterventionsLOW INTERVENTIONS: *patient oriented to surroundings and call system, * patient/family falls education completed and documented, *patients fall status communicated during bedside handoff, *whiteboard updated, *mode of toileting discussed with patient, *bed in low position with brakes locked, *call light in reach, * non-skid footwear Family Violence Screen: Are you or have you been threatened or abused physically, emotionally, or sexually by anyoneno Do you feel UNSAFE going back to the place where you are livingno Clinical assessment: Are there any apparent signs of injuries/behaviors that could be related to abuse/neglectno Social Service Consult for abuse/neglect needed this visitno Functional Screen: Functional Screen: In the recent/past 2-4 weeks, patient or family have noticedno issues that require a speech/language consult at this time AM-PAC- Basic Mobility/Daily Activity: Patient baseline bedboundno Turning from your back to your side while in a flat bed without using bedrailsnone Moving from lying on your back to sitting on the side of a flat bed without using bedrailsnone Moving to and from bed to chair (including a wheelchair)none Standing up from a chair using your arms (e.g. wheelchair or bedside chair) none To walk in hospital roomnone Climbing 3-5 steps with railingnone AM-PAC Basic Mobility- Total Score24 Putting on and taking off regular lower body clothingnone Bathing (including washing, rinsing, drying)none Putting on and taking off regular upper body clothingnone Toileting, which includes using toilet, bedpan or urinalnone Taking care of personal grooming such as brushing teethnone Eating Mealsnone AM-PAC Daily Activity- Total Score24 Learning Assessment (Patient): Patient is Able to be Assessed for Learningyes Factors Influencing Readiness to Learninterest in learning Factors that Impact Ability to Learnnone Devices/Methods Used to Communicatecommunication board Learning Preferencesindividual instruction Cultural Considerationsnone Developmental Considerationsnone Confucianist Considerationsnone Learning Assessment (Other Learner): Other learner availableno Depression Screen: During the past month, have you often been bothered by feeling down, depressed or hopelessno During the past month, have you often had little interest or pleasure in doing thingsno Have you had any thoughts of harming anyone elseno (2) [place] Suicide: Risk Screen Not Applicable/Able to Answerable to be screened In the Past Month: Have you wished you were or could go to sleep and not wake upno(2) In the Past Month: Have you had any actual thoughts of killing yourself no(2) Lifetime: Have you ever done, started to do, or prepared to do anything to end your lifeno [place] Suicide Risknegative Adult Nutrition Screen: Have you recently lost weight without tryingno Have you been eating poorly because of a decreased appetiteno Malnutrition Screening Tool Score0 Malnutrition Screening Tool RiskMST = 0 or 1 Not at risk. Eating well with little or no weight loss Nutrition Consult needed this visitno Can Patient Participate in Room Serviceyes Patient requires Paper Dishes/Plastic Utensilsyes (sends order) Pain Screen: Pain Scalenumerical 0-10 Pain Scale Educationteaching provided Current Pain Level9 = Severe Acceptable Pain Level3 = Mild Expression of Pain (nonverbal)none Chronic Painno Spiritual Screen: Are there any cultural, spiritual, caodaism practices/values/needs that are important for us to knowno CAGE: [place] this an [place] a [place] [place] /[place] yes (1) C: Have you ever felt you needed to Cut down on your drinking: no (1) A: Have people Annoyed you by criticizing your drinking: no (1) G: Have you ever felt Guilty about drinking: no (1) E: Have you ever felt you needed a drink first thing in the morning (Eye-referral and information aide) to 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 Immunocompetent persons with underlying chronic conditions or reside in remote computer terminal operator care facilitiesnone of these conditions Persons with Functional or Anatomic Asplenianone of these conditions Immunocompromised Personsnone of these conditions Pneumonia vaccine NOT indicated due to:patient DOES NOT have a condition that indicates vaccination Srinivasa: Skin - Srinivasa Scale: Srinivasa: Sensory Perception (response to environment)(4) no impairment Srinivasa: Moisture (degree skin exposed to moisture)(4) rarely moist Srinivasa: Activity (ability to walk)(4) walks frequently Srinivasa: Mobility (amount/control of body movement)(4) no limitation Srinivasa: Nutrition (quality of food intake)(3) adequate Srinivasa: Friction and Shear(3) no apparent problem Srinivasa: Score22 Significant Indicatiors: Significant Indicators: Complete Pressure Injury: Pressure Injury Present on Admissionno Electronic Signatures: Kelly Hernández (GREG) (Signed 02-Feb-2020 05:39) Authored: Admission Risk Screens, López Fall Screen, Vaccinations, Srinivasa, Pressure Injury Last Updated: 02-Feb-2020 05:39 by Kelly Hernández (GREG) References: 1. Data Referenced From Risk Screen - Adult Emergency 01-Feb-2020 22:33 2. Data Referenced From Triage - ED 01-Feb-2020 19:01 Normal [facility] C-REACTIVE PROTEINon 020 CRP [Mass/Vol] 0.32 mg/dL Normal [facility] Comment on above: Result Comment: REF VALUE < 1.00 Performed By: #### C OAGS #### [facility] [address] [place] [address] Daily Progress Note-Medicine on 02-02-2020 Daily Progress Note-Medicine Service: Medicine Subjective Data: TAPAN DAILEY is a 39 year old Male who is Hospital Day # 2. Patient was seen and examined at bedside. Patient admitted to daily drinking of rum and coca cola. No fever, no chills, no chest pain. admitted to abdominal pain 10/02 and unable to tolerate meals. Objective Data: Objective Information: T PRBPSpO2 [id number]/6496% Date/Time02/01 16: 16: 16: 16: 16:33 Range(36.7C - 37.1C ) (75 - 111 ) (16 - 18 ) (106 - 139 )/ (64 - 88 ) (94% - 99% ) Highest temp of 37.1 C was recorded at 02/01 14:59 Pain reported at 02/01 14:15: 6 = Moderate Physical Exam by System: Constitutional: lying in bed disheveled with some tremors Eyes: clear sclera ENMT: moist oral mucosa Head/Neck: No JVD Respiratory/Thorax: clear to auscultation bilaterally, no wheezing, no rhonchi Cardiovascular: slightly tachycardia, S1 and S2 present, no rubs, no murmurs, no gallops Gastrointestinal: bowel sounds present, non tender, non distended Musculoskeletal: no joint swelling Extremities: no cyanosis, no clubbing, no edema Neurological: alert and oriented x3, intact senses, motor, response and reflexes, normal strength Psychological: Appropriate mood and behavior Skin: warm and dry Medication: Medications: Continuous Medications -------- 1. Lactated Ringers Infusion: 1000 mL IntraVenous Scheduled Medications -------- 1. Buprenorphine 8 mg - Naloxone 2 mg SubLingual: 2 tablet(s) SubLingual Every 24 Hours 2. Folic Acid: 1 mg Oral Daily 3. Multivitamin with Minerals: 1 tablet(s) Oral Daily 4. Nicotine 21 mg/ 24 hour TransDermal: 1 patch TransDermal Every 24 Hours 5. Thiamine IV Piggy Back: 100 mg IntraVenous Piggyback Daily PRN Medications -------- 1. Ketorolac Injectable: 30 mg IntraVenous Push Every 6 Hours 2. LORazepam Injectable: 0.5 mg IntraVenous Push Every 2 Hours 3. LORazepam Injectable: 1 mg IntraVenous Push Every 2 Hours 4. LORazepam Injectable: 2 mg IntraVenous Push Every 2 Hours 5. Ondansetron Injectable: 4 mg IntraVenous Push Every 6 Hours Recent Lab Results: Results: I have reviewed these laboratory results: Urinalysis 01-Feb-2020 22:02:00 ResultValue Color, Urine ALISSA Reference Range: STRAW,YELLOW Appearance, Urine CLEAR Specific [place], Urine 1.008 pH, Urine 7.0 Protein, Urine NEGATIVE Glucose, Urine NEGATIVE Blood, Urine NEGATIVE Ketones, Urine NEGATIVE Bilirubin, Urine NEGATIVE Urobilinogen, Urine 4.0 H Nitrite, Urine NEGATIVE Leukocyte Esterase, Urine NEGATIVE Complete Blood Count + Differential 01-Feb-2020 19:13:00 ResultValue White Blood Cell Count 7.2 Nucleated Erythrocyte Count 0.0 Red Blood Cell Count 4.20 L HGB 14.6 HCT 42.8 MCV 102 H MCHC 34.1 PLT 150 RDW-CV 13.2 Neutrophil % 52.6 Immature Granulocytes % 0.3 Lymphocyte % 35.6 Monocyte % 10.1 Eosinophil % 0.4 Basophil % 1.0 Neutrophil Count 3.79 Lymphocyte Count 2.57 Monocyte Count 0.73 Eosinophil Count 0.03 Basophil Count 0.07 Comprehensive Metabolic Panel 01-Feb-2020 19:13:00 ResultValue Glucose, Serum 105 H NA 142 K 3.8 CL 100 Bicarbonate, Serum 26 Anion Gap, Serum 20 BUN 7 CREAT 0.60 GFR-Non >60 GFR- >60 Calcium, Serum 9.5 ALB 4.2 ALKP 124 H T Pro 7.8 T Bili 1.9 H Alanine Aminotransferase, Serum 84 H Aspartate Transaminase, Serum 180 H Lipase, Serum 01-Feb-2020 19:13:00 ResultValue Lipase, Serum 20 Magnesium, Serum 01-Feb-2020 19:13:00 ResultValue Magnesium, Serum 1.82 Ethanol Level 01-Feb-2020 19:13:00 ResultValue Ethanol Level 254 A C Reactive Protein, Serum 01-Feb-2020 19:13:00 ResultValue C Reactive Protein, Serum 0.32 Assessment and Plan: Code Status: Code StatusFull Code Assessment: 39 year old male with PMHX of opioid use d/o (on Suboxone), HH, EtOH abuse and recent dx acute pancreatitis (ED visits 01/13 and 01/16/20, refused admission then) admitted for worsening abdominal pain and found to be in acute pancreatitis PLAN: 1. Acute Pancreatitis 1. continue IV fluids 2. continue toradol for pain and advance diet as tolerated 2. Alcoholic dependence 1. Continue CIWA with ativan 3. Opiate dependence 1. Patient is on suboxone in the outpatient 4. Prophylaxis 1. SCD's Disposition: admitted for abdominal pain with acute pancreatitis and alcohol dependence needing monitoring DOC HALO KIMBERLY SANCHEZ Electronic Signatures: Kimberly Sanchez () (Signed 02-Feb-2020 19:43) Authored: Service, Subjective Data, Objective Data, Assessment and Plan, Note Completion Last Updated: 02-Feb-2020 19:43 by Kimberly Sanchez () Normal [facility] Discharge Planning [id number] 1 04-04-2019 Discharge Planning Note2 Discharge Plann ing: Needs Prior to Discharge (ex. Home Care Orders, IV/O2 prescriptions) follow up appt Discharge Barriers (ex. Avoidable days, wait guardianship, pt refuse leave) None Planned Dispositionhome Discharge Destinationhome with Significant other [facility] < 20no Anticipated Discharge [id number] Discharge Planning 02/02/20 Tamms 55 Discharge Note Patient came from home with severe abdominal pain. Alert and orient. Pt is Up ad donal. Denies O2, home care, and any assistance device. Pt currently has no financial concerns. Primary service advocate contact Nitaloi Lazo can be reach at [phone]. Anticipated discharged is currently unknown. Kelly BHAGATN RN Late Entry for 02/02/20 1600 02/02/202114 Transitional Care Coordination Progress Note: Patient was discussed during interdisciplinary rounds. Team members present: medical team, and TCC. Plan per medical team: Pt admitted with c/o abd pain, treated for acute pancreatitis. Plan to monitor CIWA and medicate as needed for withdrawal. Payer: [place] [facility] Status: Inpatient Discharge disposition: Home with significant other Potential barriers: None ADOD: 02/03 tool coordinator will continue to follow for discharge planning needs. Chen Bajwa, MSN, RN-BC, [id number]/[phone] 02/03/2020 10:09AM SOCIAL WORK NOTE SW attempted to meet with patient to discuss alcohol treatment centers. Patient requested that SW return at a later time. SW will follow up. 12:07PM: SW met with patient to discuss alcohol treatment centers. Patient denied need for information. Patient stated that he has been through rehab before for opioid use. Patient has already contacted a rehab center in [place] and is going to meet with a sponsor. Patient will reach out if he would like to further discuss rehab options. Payam Rossi, HEAT PUMP INSTALLER, LANGUAGE SPECIALIST pager [phone] 02/03/2020 Discharge Note 1800 Pt discharged. Discharge paper work and prescriptions reviewed and given. Pt states an understanding of his medications and follow appointments. IV access removed. Pt tolerated well. Pt ambulated off unit and did not appear to be in any distress. Tej Gardiner RN Assessment: Discharge Planning Assessment [id number] Discharge Planning Assessment Completed byChaya Quiroz RN, BSN, Transitional Sewing Machine Assembler Doc Halo [id number] or Primary Contact Name and NumberNita Lazo [phone]-girlfriend Stated Reason for Admission pancreatitis(1) Arrived [place] (1) Readmission Within the Last 30 Daysno previous admission in last 30 days PCPLuis Carnes PCP Last Date SeenVia phone two weeks ago [facility] Adherence/Afford/Obtainy es InsuranceAnthem Lives Withsignificant other; dependent child(kamilah) Living Arrangementshouse Recent Falls/ Injury/ Need Assist with Ambulationdenies Prior Level of Functioningindependent with ADLs, iADLs Home Care Agency/Support Servicesn/a DME Supplier Name/Numbern/a O2 LPMn/a Home O2 Suppliern/a Diabetic/Supplies Neededn/a Hemodialysis Schedulen/a Other Needsn/a Resource/Environmental Concernsnone(1) Social Determinants of Health Identifiedn/a Special Considerationsn/a Transportation Home Who/HowGirlfriend will transport home. 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(1) Services Anticipated at Transitionnone(1) Anticipated Changes Related to Illnessnone Equipment Needed After Dischargenone Anticipated Discharge Facility/Level of Care NeedsHome Electronic Signatures: Kelly Hernández (RN) (Signed 02-Feb-2020 06:03) Authored: Discharge Planning, Assessment Chaya Quiroz (RN) (Signed 02-Feb-2020 11:30) Authored: Assessment Sierra Caal () (Signed 03-Feb-2020 12:18) Authored: Discharge Planning Tej Gardiner (RN) (Signed 03-Feb-2020 18:09) Authored: Discharge Planning Chen Bajwa (CLIN COOR) (Signed 02-Feb-2020 21:18) Authored: Discharge Planning Last Updated: 03-Feb-2020 18:09 by Tej Gardiner (RN) References: 1. Data Referenced From Patient Profile - Adult v2 02-Feb-2020 05:42 Normal [facility] EMR ADDONon 02-02-2020 ADDON CONFIRMATION REQUEST REC'D Normal [facility] Comment on above: Performed By: #### A #### [facility] [address] [place] [address] History and Physicalon 02-01 History and Physical History of Present Illness: HPI: 39M with h/o opioid use d/o (on Suboxone), HH, EtOH abuse and recent dx acute pancreatitis (ED visits 01/13 and 01/16/20, refused admission then) who, per messaging h/o from tool coordinator @ 2336 is [place] [facility] [place] via [facility] [place] for pancreatitis. Per ED Provider final note (Dr Dorantes; my bolds): 39-year-old male with past medical history of pancreatitis, heavy daily alcohol use (drinks a fourth of 1.75L of vodka per day x 5 years), former opioid disorder now on Suboxone, and hiatal hernia presenting to the ED for abdominal pain. Patient states that he was admitted to the hospital at the end of December for acute pancreatitis and left AMA because he wanted to be at home for Thanksgiving. He states that upon his discharge he was initially feeling better. However, he states that over the last 2 days he has had increased diffuse, all over abdominal pain which feels typical of his pancreatitis presentations. He states that he last drank alcohol today at 1 PM. He states that he is also having associated nausea and vomiting with his abdominal pain for the last 2 days. He denies change in bowel habits, fever, or chills... MDM/ED course: ... well, nontoxic-appearing 39-year-old male sitting in bed comfortably during assessment. Upon arrival to the ED his vital signs were within normal limits. On exam his heart sounds normal lungs sounds were clear. Patient has diffuse, all over abdominal tenderness without any focal point tenderness. However, his abdomen is soft, nondistended and without tenderness or guarding and bowel sounds are present in all quadrants. IV was established and blood work was obtained. Patient was given 1 L normal saline, Zofran, and Toradol initially while in the ED. Lab work revealed no concerning leukocytosis, anemia, electrolyte imbalance, or kidney dysfunction. Lipase was within normal limits. Upon reassessment, patient is unable to tolerate any oral intake, due to this, patient will be admitted. Patient was accepted for admission by [facility]. Patient remained hemodynamically stable while in the ED. Per initial data review: Most recent VS @ 2320: 76, 16, 121/84, 99% RA (T36.7 @ 1901) Labs: Covid+ 01/15; WBC 7.2K (P53/L36/M10); lactate 2.1; lytes/renal wnl; TBili 1.9, alk phos 124; ALT 84, AST 180; lipase 121 (01/13) -> 89 (01/15) -> 20 (01/31) (added on EtOH, CRP, mag, trop) Imaging: CT a/p 01/13: Acute interstitial edematous pancreatitis of the head and uncinate process; Hepatic steatosis; Distended urinary bladder. RUQ US 01/13: pancreatic inflammation + GB sludge and small stones w/o evidence acute cholecystitis; nonobstructing 0.3 cm calculus lower pole L kidney. ED MAR: toradol 30 mg IV and Zofran 4 mg IV both @ 2156 Pt seen on [address], unaccompanied. Says this has been going on for months, hasn't had any period of sobriety (EtOH level came back at 254). Gets shaky when stops, denies h/o donavan DTs, w/d seizures. Endorses +Covid 01/15 whenever I was here, subsequently had a neg test to be cleared for back to work. Denies cough/cp/sob/n/v/d/HOWELL/fo brian neuro. Allergies: No Known Allergies: Medications Prior to Admission: ibuprofen 400 mg oral tablet: 1 tab(s) orally every 6 hours, As Needed -Pain - Mild (1-3) - .Meds to Beds thiamine 100 mg oral tablet: 1 tab(s) orally once a day -.Meds to Beds Multiple Vitamins with Minerals oral tablet: 1 tab(s) orally once a day -.Meds to Beds nicotine 21 mg/24 hr transdermal film, extended release: 1 patch transdermal every 24 hours -.Meds to Beds Suboxone 8 mg-2 mg sublingual tablet: 1.5 tab(s) sublingual once a day [place] (Report run 02/01/20; copied below back thru July 2019 only - note Suboxone since 01/2018 on OARRS): 12/27/2019 2 12/27/2019 Buprenorphin-Naloxon 8-2 MG SL 42.00 28 [facility] [id number] Dis (1180) 0 12.00 mg Comm Ins [place] 12/01/2019 2 12/01/2019 Buprenorphin-Naloxon 8-2 MG SL 19.00 13 [facility] [id number] Dis (1180) 0 11.69 mg [place] 10/25/2019 2 10/25/2019 Buprenorphin-Naloxon 8-2 MG SL 42.00 28 [facility] [id number] Dis (1180) 0 12.00 mg [place] 09/27/2019 2 09/27/2019 Buprenorphin-Naloxon 8-2 MG SL 42.00 28 [facility] [id number] Dis (1180) 0 12.00 mg [place] 08/30/2019 2 08/30/2019 Buprenorphin-Naloxon 8-2 MG SL 42.00 28 [facility] [id number] Dis (1180) 0 12.00 mg [place] 08/02/2019 2 08/02/2019 Buprenorphin-Naloxon 8-2 MG SL 42.00 28 [facility] [id number] Dis (1180) 0 12.00 mg [place] 07/05/2019 2 07/05/2019 Buprenorphin-Naloxon 8-2 MG SL 42.00 28 [facility] [id number] Dis (1180) 0 12.00 mg [place]. Objective: Objective Information: Weights 01/31 19:: Weight in lbs ((lbs)) 155.4 01/31 19:: Weight in kg (Weight (kg)) 70.5 01/31 19:: BMI (kg/m2) (BMI (kg/m2)) 20.51 T PRBPSpO2 Value36.68826738/8499% Date/Time01/31 19: 23: 23: 23: 23:20 Range(36.7C - 36.7C ) (75 - 96 ) (16 - 16 ) (112 - 121 )/ (75 - 84 ) (98% - 99% ) Pt seen in room on [place] [address] floor nursing unit, unaccompanied (for focused / appropriately-distanced exam) General: Supine in bed; NAD - breathing comfortably on RA, no coughing during visit; moderately ill- not toxic-appearing; well-kempt, no odor; well-nourished Mental Status: Alert and remained so Affect congruent; speech fluent; appropriate and fully-oriented Not restless, fidgety nor obviously disorganized nor inattentive Skin: nl color; no rash, good turgor HEENT: NC/AT; EOMI, pupils equal, sclerae anicteric; conjunctiva pink; grimace symmet (masked) Neck: supple Lungs: deferred Cor: RRR Abd: not distended; soft, mod epigastric tenderness w/o guarding nor rebound , rectal: deferred Ext: no pretib edema Neuro: no obvious focal deficit; mildly tremulous symmetrically (no asterixis) Recent Lab Results: Results: I have reviewed these laboratory results: Urinalysis 01-Feb-2020 22:02:00 ResultValue Color, Urine ALISSA Reference Range: STRAW,YELLOW Appearance, Urine CLEAR Specific [place], Urine 1.008 pH, Urine 7.0 Protein, Urine NEGATIVE Glucose, Urine NEGATIVE Blood, Urine NEGATIVE Ketones, Urine NEGATIVE Bilirubin, Urine NEGATIVE Urobilinogen, Urine 4.0 H Nitrite, Urine NEGATIVE Leukocyte Esterase, Urine NEGATIVE Magnesium, Serum 01-Feb-2020 19:13:00 ResultValue Magnesium, Serum 1.82 Ethanol Level 01-Feb-2020 19:13:00 ResultValue Ethanol Level 254 A C Reactive Protein, Serum 01-Feb-2020 19:13:00 ResultValue C Reactive Protein, Serum 0.32 Troponin I, Serum 01-Feb-2020 19:13:00 ResultValue Troponin I, Serum <0.02 Complete Blood Count + Differential 01-Feb-2020 19:13:00 ResultValue White Blood Cell Count 7.2 Nucleated Erythrocyte Count 0.0 Red Blood Cell Count 4.20 L HGB 14.6 HCT 42.8 MCV 102 H MCHC 34.1 PLT 150 RDW-CV 13.2 Neutrophil % 52.6 Immature Granulocytes % 0.3 Lymphocyte % 35.6 Monocyte % 10.1 Eosinophil % 0.4 Basophil % 1.0 Neutrophil Count 3.79 Lymphocyte Count 2.57 Monocyte Count 0.73 Eosinophil Count 0.03 Basophil Count 0.07 Comprehensive Metabolic Panel 01-Feb-2020 19:13:00 ResultValue Glucose, Serum 105 H NA 142 K 3.8 CL 100 Bicarbonate, Serum 26 Anion Gap, Serum 20 BUN 7 CREAT 0.60 GFR-Non >60 GFR- >60 Calcium, Serum 9.5 ALB 4.2 ALKP 124 H T Pro 7.8 T Bili 1.9 H Alanine Aminotransferase, Serum 84 H Aspartate Transaminase, Serum 180 H Lipase, Serum 01-Feb-2020 19:13:00 ResultValue Lipase, Serum 20 Lactate, Level 01-Feb-2020 19:12:00 ResultValue Lactate, Level 2.1 H Radiology Results: Results: EKG #### @ #### (tracing personally reviewed): ####; QTc #### ms -------- 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 CT Abdomen and Pelvis with IV Contrast [Jan 14 2020 7:55PM]: 1. Acute interstitial edematous pancreatitis of the head and uncinate process. 2. Hepatic steatosis. 3. Distended urinary bladder. Ultrasound Abdomen Complete, Liver Gallbladder Pancreas Spleen [Jan 14 2020 7:09PM]: Heterogeneous ill-defined appearance of the pancreatic parenchyma and hyperechogenicity of the peripancreatic fat likely reflecting inflammation in the setting of pancreatitis. Gallbladder sludge and small stones without additional evidence of acute cholecystitis. Hyperechoic mildly heterogeneous hepatic parenchyma consistent with hepatocellular disease such as steatosis/steatohepatiti s. Nonobstructing 0.3 cm calculus in the lower pole of the left kidney. Assessment and Plan: Impression 1: Acute (on emerging chronic) pancreatitis, recent Covid Plan for Impression 1: seen in ED for pancreatitis 01/13, 01/15 (left AMA), Covid + 01/15; WBC 7.2K (P53/L36/M10); lactate 2.1; lytes/renal wnl; TBili 1.9, alk phos 150 (01/13) -> 124 (01/31); ALT/AST 126/413 (01/13) -> 84/180 (01/31); lipase 121 (01/13) -> 89 (01/15) -> 20 (01/31) (added on EtOH - 254, CRP, mag, trop, d-dimer); CT a/p 01/13: Acute interstitial edematous pancreatitis of the head and uncinate process; NPO, ADAT; symptomatic measures; consider GI help. - Impression 2: EtOH Plan for Impression 2: level 254; CIWA; explained in no uncertain terms that he needs to stop drinking if wants to arrest progression of pancreatitis; he already reached out to some contacts re: treatment programs; would ask HEAT PUMP INSTALLER or addiction counselor here for help with this - Impression 3: h/o opioid use d/o Plan for Impression 3: Suboxone 8 mg-2 mg sublingual tablet: 1.5 tab(s) sublingual once a day (confirmed in OARRS) - Impression 4: Gallstones, sludge Plan for Impression 4: RUQ US 01/13: pancreatic inflammation + GB sludge and small stones w/o evidence acute cholecystitis . Impression 5: Nephrolithiasis Plan for Impression 5: nonobstructing 0.3 cm calculus lower pole L kidney per recent imaging; keep in mind if relevant s/s develop - Impression 6: GOC / DVT prophylaxis / Dispo / Signature Plan for Impression 6: - Goals of Care: Full code DVT prophylaxis: SQ Lovenox 40 mg/d, SCDs Disposition: TBD Total time 70 min > 50% f2f and floor time counseling and coordinating care Jarred Oliveira MD, MS [facility]ist, [facility] Geriatrics, Hospital and Post-Acute Medicine - Signatures/Attestation/C ertification: Note Completion: Attending Provider Inpatient Certification StatementI certify this patients need for inpatient care based on the above documentation including; the order to admit as inpatient, the anticipated length of stay, diagnosis, problem list and plan of care, and discharge plan. Admission Order - View OnlyCurrent Admission Order. Admit to Inpatient [place] [facility] Admitting Diagnosis, K85.90 Pancreatitis, acute Admitting Service, Medicine Level of Care, Med/Surg Ivan Oliveira Admission Order Certification order has been placed by Ivan Oliveira Electronic Signatures: Ivan Oliveira) (Signed 02-Feb-2020 09:48) Authored: History of Present Illness, Comorbidities, Allergies, Medications Prior to Admission, Objective, Assessment and Plan, Note Completion Last Updated: 02-Feb-2020 09:48 by Ivan Oliveira) Normal [facility] MAGNESIUMon 02-02-2020 Magnesium [Mass/Vol] 1.82 mg/dL Normal 1.60 - 2.40 [facility] Comment on above: Performed By: #### V TA #### [facility] [place], [place] [id number] Patient Profile - Adult v2on 02-02-2020 Patient Profile - Adult v2 Profile: Initial Info: How to be AddressedNate(1) Spoken Language PreferredEnglish (1) Source of Informationpatient Stated Reason for Admissionpancreatitis Primary Contact Name and NumberNita Lazo [phone] Patient Belongingsnone Arrived From[place] Medications Brought to Hospitalno Are you currently using the Personal Electronic Health Record or MYUHCAREno (1) Are you interested in learning more about MYCARE for the management of your healthdeclined Wants Family/Rep Notified of Admissionyes, primary contact Notify PCPnotify PCP Informed of Patient Visiting Rightsno General Health: Weight in kg65.2 kilogram(s)(2) Weight in ppw902.7 pound(s) Weight Methodactual (measured) (2) Scale Typestanding (2) Height in cm185.4 centimeter(s) Height in feet6 feet(2) Height in inches1 inch(es)(2) Height Methodstated BMI (kg/m2)18.968 square meter RSP Based Care: How would you like to participate in your careplan of care What is the number one concern for you during this hospitalizationgetting well and going home What is the most important thing we can do to support you during this hospitalizationpeace quiet and pain management Is there anything we need to know to best care for younone Substance: Current or Former Substance Use never: e-Cigarette/Vaping(3), Street Drugs(3) YES: Cigarette/Tobacco(3), Alcohol(3) Tobacco Cessation Education (provide if tobacco use within the last 12 mos)yes Health Mgmt: Symptoms/Conditions Managed at Homenone Relationship/Environ: Significant Exposurenone(1) Resource/Environmental Concernsnone Primary Source of Support/Comfortno one Lives Withalone Living Arrangementsapartment Services Anticipated at Transitionnone Anticipated Transition T[place]ome Significant IndicatorsComplete Information Review: Allergies, Home Meds and Significant Events have been Reviewed and Verified with Patient/Familyno ALLERGY, INTOLERANCE, ADVERSE EVENT: Allergies: No Known Allergies: Active Significant Events: 14-Jan-2020 Hiatal Hernia: Past Medical History, Active 01-Feb-2020 ETOH abuse: Social/Behavioral, Active Electronic Signatures: Kelly Hernández (GREG) (Signed 02-Feb-2020 05:54) Authored: Initial Info, General Health, RSP Based Care, Substance, Health Mgmt, Relationship/Environ, Additional Information Last Updated: 02-Feb-2020 05:54 by Kelly Hernández (GREG) References: 1. Data Referenced From Patient Profile - Adult v2 17-Jan-2020 01:31 2. Data Referenced From 1. Vital Signs 02-Feb-2020 04:53 3. Data Referenced From Provider Note - ED v2 01-Feb-2020 22:18 Normal [facility] Provider Note - ED v2on 12 Provider Note - ED v2 Provider Note - ED v2: Chart Review: ED NOTES ED NOTES: Patient is a 39-year-old male with past medical history of pancreatitis, heavy daily alcohol use (drinks a fourth of 1.75L of vodka per day x 5 years), former opioid disorder now on Suboxone, and hiatal hernia presenting to the ED for abdominal pain. Patient states that he was admitted to the hospital at the end of December for acute pancreatitis and left AMA because he wanted to be at home for Thanksgiving. He states that upon his discharge he was initially feeling better. However, he states that over the last 2 days he has had increased diffuse, all over abdominal pain which feels typical of his pancreatitis presentations. He states that he last drank alcohol today at 1 PM. He states that he is also having associated nausea and vomiting with his abdominal pain for the last 2 days. He denies change in bowel habits, fever, or chills. ROS negative unless noted above. HISTORY OF PRESENTING ILLNESS TAPAN is a 39 year old Male and was seen by me at 01-Feb-2020 20:18 for a chief complaint of abdominal pain . Other complaints include: c/o abd pain. patient states he was dx with pancreatitis. daily ETOH user. (1). Triage Information: Most recent Vital Sign Value Date Temp (F): 98.2 02-01-2020 19:01 Temp (C): 36.7 02-01-2020 19:01 Heart Rate (beats/min): 96 02-01-2020 19:01 Respirations (breaths/min): 16 02-01-2020 19:01 SpO2 (%): 98 02-01-2020 19:01 BP Systolic (mm Hg): 117 02-01-2020 19:01 BP Diastolic (mm Hg): 84 02-01-2020 19:01 PAST MEDICAL HISTORY ATTESTATION: I have reviewed and confirmed nurse's/medic's notes for patient's medications, allergies, medical history, and surgical history PSYCHOSOCIAL SCREENING: NO: concerns for safety at home, feelings of depression, feels like hurting others and feels like hurting self CURRENT OR FORMER SUBSTANCE USE: YES: Cigarette/Tobacco and Alcohol NO: e-Cigarette/Vaping and Street Drugs ALLERGIES/INTOLERANCES: No Known Allergies HEALTH HISTORY: No documented data. OUTPATIENT MEDICATIONS: Home Medications Review Status for Reconciliation: N/A Med Status: Patient Currently Takes Medications Drug Name: ibuprofen 400 mg oral tablet Instructions: 1 tab(s) orally every 6 hours, As Needed -Pain - Mild (1-3) - .Meds to Beds Drug Name: thiamine 100 mg oral tablet Instructions: 1 tab(s) orally once a day -.Meds to Beds Drug Name: Multiple Vitamins with Minerals oral tablet Instructions: 1 tab(s) orally once a day -.Meds to Beds Drug Name: nicotine 21 mg/24 hr transdermal film, extended release Instructions: 1 patch transdermal every 24 hours -.Meds to Beds SIGNIFICANT EVENTS: Past Medical History Description:Hiatal Hernia Social/Behavioral Description:ETOH abuse RESULTS/VITAL SIGNS RESULTS: Recent Lab Results: I have reviewed these laboratory results: Complete Blood Count + Differential 01-Feb-2020 19:13:00 ResultValue White Blood Cell Count 7.2 Nucleated Erythrocyte Count 0.0 Red Blood Cell Count 4.20 L HGB 14.6 HCT 42.8 MCV 102 H MCHC 34.1 PLT 150 RDW-CV 13.2 Neutrophil % 52.6 Immature Granulocytes % 0.3 Lymphocyte % 35.6 Monocyte % 10.1 Eosinophil % 0.4 Basophil % 1.0 Neutrophil Count 3.79 Lymphocyte Count 2.57 Monocyte Count 0.73 Eosinophil Count 0.03 Basophil Count 0.07 Comprehensive Metabolic Panel 01-Feb-2020 19:13:00 ResultValue Glucose, Serum 105 H NA 142 K 3.8 CL 100 Bicarbonate, Serum 26 Anion Gap, Serum 20 BUN 7 CREAT 0.60 GFR-Non >60 GFR- >60 Calcium, Serum 9.5 ALB 4.2 ALKP 124 H T Pro 7.8 T Bili 1.9 H Alanine Aminotransferase, Serum 84 H Aspartate Transaminase, Serum 180 H Lipase, Serum 01-Feb-2020 19:13:00 ResultValue Lipase, Serum 20 Lactate, Level 01-Feb-2020 19:12:00 ResultValue Lactate, Level 2.1 H VITAL SIGNS: T PRBP SpO2O2(LPM) %FiO2 Method 01-Feb-2020 23:20:[id number] 99 01-Feb-2020 22:24:[id number]/75 98 01-Feb-2020 19:01:[id number]/84 98 room air, no respiratory support PHYSICAL EXAM CONSTITUTIONAL: Well appearing, well nourished, awake, alert, oriented to person, place, time/situation and in no apparent distress. HENMT: Airway patent, ears with clear tympanic membranes bilaterally. Nasal mucosa clear. Mouth with normal mucosa. Throat has no vesicles, no oropharyngeal exudates and uvula is midline. Face with no lymph node enlargement. EYES: Clear bilaterally, pupils equal, round and reactive to light. CARDIOVASCULAR: Normal rate, regular rhythm. Heart sounds S1, S2. No murmurs, rubs or gallops. PMI non-displaced. RESPIRATORY: Breath sounds clear and equal bilaterally. GASTROINTESTINAL: Abdomen soft, non-distended, no rebound, no guarding. Bowel sounds normal in all 4 quadrants. GENITOURINARY: No discharge, no lesions. MUSCULOSKELETAL: Spine appears normal, range of motion is not limited, no muscle or joint tenderness. NEUROLOGICAL: Alert and oriented, no focal deficits, no motor or sensory deficits. SKIN: Skin normal color for race, warm, dry and intact. No evidence of trauma. PSYCHIATRIC: Alert and oriented to person, place, time/situation. normal mood and affect. No apparent risk to self or others. HEME/LYMPH: No adenopathy or splenomegaly. No cervical, supraclavicular or inguinal lymphadenopathy. MEDICAL DECISION MAKING/ED COURSE MDM/ED COURSE: Patient is a well, nontoxic-appearing 39-year-old male sitting in bed comfortably during assessment. Upon arrival to the ED his vital signs were within normal limits. On exam his heart sounds normal lungs sounds were clear. Patient has diffuse, all over abdominal tenderness without any focal point tenderness. However, his abdomen is soft, nondistended and without tenderness or guarding and bowel sounds are present in all quadrants. IV was established and blood work was obtained. Patient was given 1 L normal saline, Zofran, and Toradol initially while in the ED. Lab work revealed no concerning leukocytosis, anemia, electrolyte imbalance, or kidney dysfunction. Lipase was within normal limits. Upon reassessment, patient is unable to tolerate any oral intake, due to this, patient will be admitted. [facility] Patient remained hemodynamically stable while in the ED. *Please note that portions of this note may have been completed with a voice recognition program. Efforts were made to edit the dictations but occasionally, words are mis-transcribed. CLINICAL IMPRESSION Diagnosis/Annotation: ED Dx Name:Pancreatitis, acute Code:K85.90 Disposition: hospitalized Admit to: [facility]. Admitting Considerations: ATTESTATION Attestation: This is a shared visit. I have reviewed the LIPs encounter note, approve the LIPs documentation and provide the following additional information from my personal encounter. Shared Visit Documentation: See comments/additional findings below CRITICAL CARE TIME Is this a critically ill patient: no Electronic Signatures: Jose Armando Dorantes) (Signed 01-Feb-2020 23:58) Authored: PE, Attestation, Chart Review, Scores Co-Signer: PMH, PE, Results/Vital Signs, MDM/ED Course, Clinical Impression, Attestation, Chart Review, Scores Nemo Preciado ([employer]LLING DISTRIBUTOR-PRIMARY TEACHER) (Signed 01-Feb-2020 23:21) Authored: ED Notes, HPI, PMH, PE, Results/Vital Signs, MDM/ED Course, Clinical Impression, Attestation, Chart Review, Scores Last Updated: 01-Feb-2020 23:58 by Jose Armando Dorantes) References: 1. Data Referenced From Triage - ED 01-Feb-2020 19:01 Normal [facility] Risk Screen - Adult Emergenc yon 02-02-2020 Risk Screen - Adult Emergency Preferred Language: Preferred Language: Preferred Language for Discussing Health Care (patient/designee)Eli dotson Advanced Directives: Advance Directive/DNRno Family Violence Adult: Abuse Screen: Are you or have you been threatened or abused physically, emotionally, or sexually by anyoneno Learning Assessment (Patient): Learning Assessment (Patient): Patient is Able to be Assessed for Learningyes Factors Influencing Readiness to Learnacuteness of illness Factors that Impact Ability to Learnnone Devices/Methods Used to Communicatenone Learning Preferencesverbal instruction Cultural Considerationsnone Developmental Considerationsnone Confucianist Considerationsnone Learning Assessment (Other Learner): Learning Assessment (Other Learner): Other learner availableno Pressure Injury/TB/Substance: Pressure Injury: Pressure Injury Present on Admissionno Do you have a coughno Admission Risk Screen: Significant IndicatorsComplete CAGE: CAGE: [place] an [place] [place] yes C: Have you ever felt you needed to Cut down on your drinking: no A: Have people Annoyed you by criticizing your drinking: no G: Have you ever felt Guilty about drinking: no E: Have you ever felt you needed a drink first thing in the morning (Eye-referral and information aide) to steady your nerves or to get rid of hangover: no Electronic Signatures: Maurilio Gaspar (RN) (Signed 01-Feb-2020 22:37) Authored: Preferred Language, Advanced Directives, Family Violence Adult, Learning Assessment (Patient), Learning Assessment (Other Learner), Pressure Injury/TB/Substance, Pressure Injury, CAGE Last Updated: 01-Feb-2020 22:37 by Maurilio Gaspar) Normal [facility] TROPONIN Ion 02-02-2020 Troponin I.cardiac [Mass/Vol] ng/mL Normal 0.00 - 0.03 [facility] Comment on above: Result Comment: LESS THAN 0.04 NG/ML: NEGATIVE REPEAT TESTING IN THREE TO SIX HOURS IF CLINICALLY INDICATED. 0.04 - 0.5 NG/ML: CONSISTENT WITH POSSIBLE CARDIAC DAMAGE AND POSSIBLE INCREASED CLINICAL RISK. SERIAL MEASUREMENTS MAY HELP ASSESS EXTENT OF MYOCARDIAL DAMAGE. >0.5 NG/ML: CONSISTENT WITH CARDIAC DAMAGE, INCREASED CLINICAL RISK AND MYOCARDIAL INFARCTION. SERIAL MEASUREMENTS MAY HELP ASSESS EXTENT OF MYOCARDIAL DAMAGE. . Note: Troponin I testing is performed using different testing methodology at [facility] than at other [place] [facility]. Direct result comparisons should only be made within the same method. . Biotin interference may cause falsely decreased results. Patients taking a Biotin dose of up to 5 mg/day should refrain from taking Biotin for 24 hours before sample collection. Providers may contact their laboratory for further information. Performed By: #### C BCDF #### [facility] [address] [place] [address] URINALYSISon 02-02-2020 Appearance (U) CLEAR Normal CLEAR [facility] Comment on above: Performed By: #### V TA #### [facility] [address] [place], [place] [id number] Bilirubin (U) [Mass/Vol] Negative Normal NEGATIVE [facility] Comment on above: Performed By: #### V TA #### [facility] [address] [place], [place] [id number] BLOOD Negative Normal NEGATIVE [facility] Comment on above: Performed By: #### V TA #### [facility] [address] [place], [place] [id number] Color (U) ALISSA Normal STRAW,YELLOW [facility] Comment on above: Performed By: #### Vijay SMITH #### [facility] [address] [place], [place] [id number] Glucose [Mass/Vol] Negative Normal NEGATIVE [facility] Comment on above: Performed By: #### Vijay SMITH #### [facility] [address] [place], [place] [id number] Ketones Ql (U) Negative Normal NEGATIVE [facility] Comment on above: Performed By: #### Vijay SMITH #### [facility] [address] [place], [place] [id number] Leukocyte esterase Test strip Ql (U) Negative Normal NEGATIVE [facility] Comment on above: Performed By: #### Vijay SMITH #### [facility] [address] [place], [place] [phone] Nitrite Ql (U) Negative Normal NEGATIVE [facility] Comment on above: Performed By: #### Vijay SMITH #### [facility] [address] [place], [place] [address] pH (Bld) 7.0 Normal 5.0 - 8.0 [facility] Comment on above: Performed By: #### Vijay SMITH #### [facility] [address] [place], [place] [id number] Protein (U) [Mass/Vol] Negative Normal NEGATIVE [facility] Comment on above: Performed By: #### Vijay SMITH #### [facility] [address] [place], [place] [id number] Specific gravity (U) [Rel density] 1.008 Normal 1.005 - 1.035 [facility] Comment on above: Performed By: ###Rickey SMITH #### [facility] [address] [place], [place] [id number] Urobilinogen Qn (U) 4.0 mg/dL High 0.0 - 1.9 [facility] Comment on above: Result Comment: SOME PIGMENTS AND MEDICATIONS MAY CAUSE A FALSE POSITIVE UROBILINOGEN Performed By: #### V TA #### [facility] [address] [place], [place] [id number] CBC AND DIFFERENTIALon 01-31 % AUTOMATED IMMATURE GRAN 0.3 % Normal 0.0 - 0.9 [facility] Comment on above: Result Comment: [place] Granulocyte Count (IG) includes promyelocytes, myelocytes and metamyelocytes but does not include bands. Percent differential counts (%) should be interpreted in the context of the absolute cell counts (cells/L). Performed By: #### V LUIS #### [facility] [address] [place], [place] [id number] Basophils (Bld) [#/Vol] 0.07 10*3/uL Normal 0.00 - 0.1 0 [facility] Comment on above: Performed By: #### V TA #### [facility] [address] [place], [place] [id number] Basophils/100 WBC (Bld) 1.0 % Normal 0.0 - 2.[address] [facility] Comment on above: Performed By: #### V TA #### [facility] [address] [place], [place] [phone] Eosinophils (Bld) [#/Vol] 0.03 10*3/uL Normal 0.00 - 0.70 [facility] Comment on above: Performed By: #### V TA #### [facility] [address] [place], [place] [phone] Eosinophils/100 WBC (Bld) 0.4 % Normal 0.0 - 6.0 [facility] Comment on above: Performed By: #### V TA #### [facility] [address] [place], [place] [address] Erythrocyte distribution width (RBC) [Ratio] 13.2 % Normal 11.5 - 14.5 [facility] Comment on above: Performed By: #### V TA #### [facility] [address] [place], [place] [address] Hematocrit (Bld) [Volume fraction] 42.8 % Normal 41.0 - 52.0 [facility] Comment on above: Performed By: #### V TA #### [facility] [address] [place], [place] [address] Hemoglobin (Bld) [Mass/Vol] 14.6 g/dL Normal 13.5 - 17.5 [facility] Comment on above: Performed By: #### V TA #### [facility] [address] [place], [place] [address] Lymphocytes (Bld) [#/Vol] 2.57 10*3/uL Normal 1.20 - 4.80 [facility] Comment on above: Performed By: #### V TA #### [facility] [address] [place], [place] [address] Lymphocytes/100 WBC (Bld) 35.6 % Normal 13.0 - 44.0 [facility] Comment on above: Performed By: #### V TA #### [facility] [address] [place], [place] [id number] MCHC (RBC) [Mass/Vol] 34.1 g/dL Normal 32.0 - 36.0 [facility] Comment on above: Performed By: #### V TA #### [facility] [address] [place], [place] [id number] MCV (RBC) [Entitic vol] 102 fL High 80 - 100 [facility] Comment on above: Performed By: #### V TA #### [facility] [address] [place], [place] [id number] Monocytes (Bld) [#/Vol] 0.73 10*3/uL Normal 0.10 - 1.0 0 [facility] Comment on above: Performed By: #### V TA #### [facility] [address] [place], [place] [phone] Monocytes/100 WBC (Bld) 10.1 % Normal 2.0 - 10.[address] [facility] Comment on above: Performed By: #### V TA #### [facility] [address] [place], [place] [phone] Neutrophils (Bld) [#/Vol] 3.79 10*3/uL Normal 1.20 - 7.70 [facility] Comment on above: Performed By: #### Vijay TA #### [facility] [address] [place], [place] [address] Neutrophils/100 WBC (Bld) 52.6 % Normal 40.0 - 80.0 [facility] Comment on above: Performed By: #### Vijay TA #### [facility] [address] [place], [place] [address] Nucleated RBC/100 WBC (Bld) [Ratio] 0.0 /100 WBC Normal 0.0-0.0 [facility] Comment on above: Performed By: #### V TA #### [facility] [address] [place], [place] [phone] Platelets (Bld) [#/Vol] 150 10*3/uL Normal 150 - 450 [facility] Comment on above: Performed By: #### V TA #### [facility] [address] [place], [place] [id number] RBC (Bld) [#/Vol] 4.20 x10E12/L Low 4.50 - 5.90 [facility] Comment on above: Performed By: #### V TA #### [facility] [address] [place], [place] [id number] WBC (Bld) [#/Vol] 7.2 10*3/uL Normal 4.4 - 11.3 [facility] Comment on above: Performed By: #### V TA #### [facility] [address] [place], [place] [id number] COMPREHENSIVE PANELon 2019 Albumin [Mass/Vol] 4.2 g/dL Normal 3.4 - 5.0 [facility] Comment on above: Performed By: #### C BCDF #### [facility] [address] [place] [address] ALP [Catalytic activity/Vol] 124 U/L High 33 - 120 [facility] Comment on above: Performed By: #### C BCDF #### [facility] [address] [place] [address] ALT [Catalytic activity/Vol] 84 U/L High 10 - 52 [facility] Comment on above: Result Comment: Hue ents treated with Sulfasalazine may generate falsely decreased results for ALT. Performed By: #### C BCDF #### [facility] [address] [place] [address] Anion gap [Moles/Vol] 20 mmol/L Normal 10 - 20 [facility] Comment on above: Performed By: #### C BCDF #### [facility] [address] [place] [address] AST [Catalytic activity/Vol] 180 U/L High 9 - 39 [facility] Comment on above: Performed By: #### C BCDF #### [facility] [address] [place] [address] Bilirubin [Mass/Vol] 1.9 mg/dL High 0.0 - 1.2 [facility] Comment on above: Performed By: #### C BCDF #### [facility] [address] [place] [address] Calcium [Mass/Vol] 9.5 mg/dL Normal 8.6 - 10.6 [facility] Comment on above: Performed By: #### C BCDF #### [facility] [address] [place] [address] Chloride [Moles/Vol] 100 mmol/L Normal 98 - 107 [facility] Comment on above: Performed By: #### C BCDF #### [facility] [address] [place] [address] Creatinine [Mass/Vol] 0.60 mg/dL Normal 0.50 - 1.30 [facility] Comment on above: Performed By: #### C BCDF #### [facility] [address] [place] [address] GFR- AM. >60 Normal >60 [facility] Comment on above: Result Comment: CALC ULATIONS OF ESTIMATED GFR ARE PERFORMED USING THE MDRD STUDY EQUATION FOR THE IDMS-TRACEABLE CREATININE METHODS. CLIN CHEM 2007;53:766-72 Performed By: #### C BCDF #### [facility] [address] [place] [address] GFR-NON AM. >60 Normal >60 [facility] Comment on above: Performed By: #### C BCDF #### [facility] [address] [place] [address] Glucose [Mass/Vol] 105 mg/dL High 74 - 99 [facility] Comment on above: Performed By: #### C BCDF #### [facility] [address] [place] [address] HCO3 (Bld) [Moles/Vol] 26 mmol/L Normal 21 - 32 [facility] Comment on above: Performed By: #### C BCDF #### [facility] [address] [place] [address] Potassium [Moles/Vol] 3.8 mmol/L Normal 3.5 - 5.3 [facility] Comment on above: Performed By: #### C BCDF #### [facility] [address] [place] [address] Protein [Mass/Vol] 7.8 g/dL Normal 6.4 - 8.2 [facility] Comment on above: Performed By: #### C BCDF #### [facility] [address] [place] [address] Sodium [Moles/Vol] 142 mmol/L Normal 136 - 145 [facility] Comment on above: Performed By: #### C BCDF #### [facility] [address] [place] [address] Urea nitrogen [Mass/Vol] 7 mg/dL Normal 6 - 23 [facility] Comment on above: Performed By: #### C BCDF #### [facility] [address] [place] [address] LACTATEon 02-01-2020 Lactate [Moles/Vol] 2.1 mmol/L High 0.4 - 2.0 [facility] Comment on above: Result Comment: Kalyn puncture immediately after or during the administration of Metamizole may lead to falsely low results. Testing should be performed immediately prior to Metamizole dosing. Performed By: #### C BCDF #### [facility] [address] [place] [address] LIPASEon 02-01-2020 Lipase [Catalytic activity/Vol] 20 U/L Normal 9 - 82 [facility] Comment on above: Result Comment: Kalyn puncture immediately after or during the administration of Metamizole may lead to falsely low results. Testing should be performed immediately prior to Metamizole dosing. C-iyftbc-n-benzoquinone imine (metabolite of Acetaminophen) will generate erroneously low results in samples for patients that have taken toxic doses of acetaminophen. Performed By: #### V TA #### [facility] [place], [place] [id number] Triage - EDon 02-01-2020 Triage - ED Chart Review: ARRIVAL INFORMATION Mode of Arrival: private vehicle CHIEF COMPLAINT TAPAN DAILEY is a Male patient with a chief complaint of abdominal pain. Other Complaints: c/o abd pain. patient states he was dx with pancreatitis. daily ETOH user. Triage Date/Time: 01-Feb-2020 19:01 Vital Signs: Temperature: 98.2F ( 36.7C) taken oral Blood Pressure: 117/84 Mean: Heart Rate: 96 Respiratory Rate: 16 Pulse Oximetry: 98% on room air, no respiratory support. Height: 6 feet 1.00 inches. 185.4 CM Weight: 155.4 pounds. Calculated 70.5 kg. (stated) Calculated BMI (kg/m2): 20.510 Calculated BSA (m2) 1.91 [place] Coma Scale: Best Eye Response: (E4) spontaneous Best Motor Response: (M6) obeys commands Best Verbal Response: (V5) oriented Grace Score: 15 Patient has homicidal thoughts: no ZOEY: 3 Symptoms Are POSITIVE For: nausea and vomiting. Symptoms Are Negative For: anorexia, constipation, diaphoresis, diarrhea, distention, fever and rectal blood. Risk Screens Suicide Risk Screen In the Past Month: Have you wished you were or wished you could go to sleep and not wake up no In the Past Month: Have you had any actual thoughts of killing yourself no In Your Lifetime: Have you ever done anything, started to do anything, or prepared to do anything to end your life no López Fall Scale Screening Has the patient fallen before (or is the patient in the ED as a result of a fall) has not had a fall Does the patient have an impaired gait does not have impaired gait Is the patient cognitively impaired not cognitively impaired Interventions: López Fall Interventions: LOW INTERVENTIONS: *patient oriented to surroundings and call system, * patient/family falls education completed and documented, *patients fall status communicated during bedside handoff, *whiteboard updated, *mode of toileting discussed with patient, *bed in low position with brakes locked, *call light in reach, * non-skid footwear TRAVEL HISTORY Travel History Coronavirus Screening: COVID positive 14 or more days ago Coronavirus Screening Details: patient states he tested negative before he was discharged last admission. PAIN Pain Scale Used: BHARATI Past Medical History: Past Medical History Reviewedyes ETOH abuse: Social/Behavioral, Active Electronic Signatures: Sydney Aguilar (SHALA) (Signed 01-Feb-2020 19:06) Authored: Quick Triage, Risk Screens, Pain, Chart Review, Scores, Past Medical History Last Updated: 01-Feb-2020 19:06 by Sydney Aguilar (SHALA) Normal [facility] VITAMIN Aon 01-24-2020 VITAMIN A 33.6 ug/dL Normal 18.9-57.3 [facility] Comment on above: Result Comment: Refe rence intervals for vitamin A determined from [facility] internal studies. Individuals with vitamin A less than 20 ug/dL are considered vitamin A deficient and those with serum concentrations less than 10 ug/dL are considered severely deficient. This test was developed and its performance characteristics determined by [employer]. It has not been cleared or approved by the Food and Drug Administration. Test(s) 447787-Qzrbdyy E(Alpha Tocopherol); 829605- Vitamin E(Gamma Tocopherol) was developed and its performance characteristics determined by [employer]. It has not been cleared or approved by the Food and Drug Administration. Performed By: #### Vijay TA #### [facility] [address] [place], [place] [id number] VITAMIN David 01-24-2020 VITAMIN E [ALPHA TOCOPHEROL] 8.0 mg/L Normal 5.9-19.4 [facility] Comment on above: Performed By: #### A LC #### [facility] [address] [place] [address] VITAMIN E [GAMMA TOCOPHEROL] 1.3 mg/L Normal 0.7-4.9 [facility] Comment on above: Result Comment: Refe rence intervals for alpha and gamma-tocopherol determined from National Health and Nutrition Examination Survey, 0886-7349. Individuals with alpha-tocopherol levels less than 5.0 mg/L are considered vitamin E deficient. Test(s) 842632-Lprcous E(Alpha Tocopherol); 112740- Vitamin E(Gamma Tocopherol) was developed and its performance characteristics determined by [employer]. It has not been cleared or approved by the Food and Drug Administration. Performed By: #### A #### [facility] [address] [place] [address] CBC AND DIFFERENTIALon 01-17 % AUTOMATED IMMATURE GRAN 0.5 % Normal 0.0 - 0.9 [facility] Comment on above: Result Comment: [place] Granulocyte Count (IG) includes promyelocytes, myelocytes and metamyelocytes but does not include bands. Percent differential counts (%) should be interpreted in the context of the absolute cell counts (cells/L). Performed By: #### Vijay TA #### [facility] [address] [place], [place] [phone] Basophils (Bld) [#/Vol] 0.04 10*3/uL Normal 0.00 - 0.1 0 [facility] Comment on above: Performed By: #### Vijay TA #### [facility] [address] [place], [place] [id number] Basophils/100 WBC (Bld) 1.0 % Normal 0.0 - 2.[address] [facility] Comment on above: Performed By: #### Vijay TA #### [facility] [address] [place], [place] [address] Eosinophils (Bld) [#/Vol] 0.11 10*3/uL Normal 0.00 - 0.70 [facility] Comment on above: Performed By: #### V TA #### [facility] [address] [place], [place] [address] Eosinophils/100 WBC (Bld) 2.6 % Normal 0.0 - 6.0 [facility] Comment on above: Performed By: #### V TA #### [facility] [address] [place], [place] [address] Erythrocyte distribution width (RBC) [Ratio] 12.6 % Normal 11.5 - 14.5 [facility] Comment on above: Performed By: #### V TA #### [facility] [address] [place], [place] [address] Hematocrit (Bld) [Volume fraction] 42.0 % Normal 41.0 - 52.0 [facility] Comment on above: Performed By: #### V TA #### [facility] [address] [place], [place] [address] Hemoglobin (Bld) [Mass/Vol] 14.6 g/dL Normal 13.5 - 17.5 [facility] Comment on above: Performed By: #### V TA #### [facility] [address] [place], [place] [address] Lymphocytes (Bld) [#/Vol] 1.64 10*3/uL Normal 1.20 - 4.80 [facility] Comment on above: Performed By: #### V TA #### [facility] [address] [place], [place] [address] Lymphocytes/100 WBC (Bld) 39.0 % Normal 13.0 - 44.0 [facility] Comment on above: Performed By: #### V TA #### [facility] [address] [place], [place] [address] MCHC (RBC) [Mass/Vol] 34.8 g/dL Normal 32.0 - 36.0 [facility] Comment on above: Performed By: #### V TA #### [facility] [address] [place], [place] [address] MCV (RBC) [Entitic vol] 101 fL High 80 - 100 [facility] Comment on above: Performed By: #### V TA #### [facility] [address] [place], [place] [id number] Monocytes (Bld) [#/Vol] 0.48 10*3/uL Normal 0.10 - 1.0 0 [facility] Comment on above: Performed By: #### V TA #### [facility] [address] [place], [place] [address] Monocytes/100 WBC (Bld) 11.4 % Normal 2.0 - 10.0 [facility] Comment on above: Performed By: #### V TA #### [facility] [address] [place], [place] [address] Neutrophils (Bld) [#/Vol] 1.92 10*3/uL Normal 1.20 - 7.70 [facility] Comment on above: Performed By: #### V TA #### [facility] [address] [place], [place] [address] Neutrophils/100 WBC (Bld) 45.5 % Normal 40.0 - 80.0 [facility] Comment on above: Performed By: #### V TA #### [facility] [address], [place] [id number] Nucleated RBC/100 WBC (Bld) [Ratio] 0.0 /100 WBC Normal 0.0-0.0 [facility] Comment on above: Performed By: #### V TA #### [facility] [address], [place] [id number] Platelets (Bld) [#/Vol] 117 10*3/uL Low 150 - 450 [facility] Comment on above: Performed By: #### Vijay SMITH #### [facility] [address], [place] [id number] RBC (Bld) [#/Vol] 4.16 x10E12/L Low 4.50 - 5.90 [facility] Comment on above: Performed By: #### Vijay SMITH #### [facility] [address], [place] [id number] WBC (Bld) [#/Vol] 4.2 10*3/uL Low 4.4 - 11.3 [facility] Comment on above: Performed By: ###Rickey SMITH #### [facility] [address], [place] [id number] COAGULATION SCREENon 020 aPTT Coag (Bld) [Time] 32 s Normal 25 - 35 [facility] Comment on above: Result Comment: THE APTT IS NO LONGER USED FOR MONITORING UNFRACTIONATED HEPARIN THERAPY. FOR MONITORING HEPARIN THERAPY, USE THE HEPARIN ASSAY. Performed By: #### Ga ORDAZ #### [facility] [address] [place] [address] INR Coag (PPP) [Relative time] 1.0 {INR} Normal 0.9 - 1.1 [facility] Comment on above: Performed By: #### C BELLGS #### [facility] [address] [place] [address] PT Coag (PPP) [Time] 11.9 s Normal 10.1 - 13.3 [facility] Comment on above: Performed By: #### C OAGS #### [facility] [address] [place] [address] D-DIMER, NON VTEon 0 Fibrin D-dimer FEU IA (Bld) [Mass/Vol] 549 ng/mL FEU Abnormal = 500 [facility] Comment on above: Result Comment: THE D-DIMER ASSAY IS REPORTED IN NG/ML FIBRINOGEN EQUIVALENT UNITS (FEU). THE RESULTS OF THIS ASSAY SHOULD NOT BE USED FOR THE EXCLUSION OF DEEP VEIN THROMBOSIS AND/OR PULMONARY EMBOLISM. Performed By: #### V TA #### [facility] [address], [place] [id number] LIPID PANEL (CORONARY RISK 2 )on 01-18-2020 Cholesterol [Mass/Vol] 158 mg/dL Normal 0 - 199 [facility] Comment on above: Result Comment: . AGE DESIRABLE BORDERLINE HIGH HIGH 0-19 Y 0 - 169 170 - 199 >/= 200 20-24 Y 0 - 189 190 - 224 >/= 225 >24 Y 0 - 199 200 - 239 >/= 240 All ranges are based on fasting samples. Specific therapeutic targets will vary based on patient-specific cardiac risk. . Pediatric guidelines reference:Pediatrics 2011, 128(S5). Adult guidelines reference: NCEP ATPIII Guidelines, SUZAN 2001, 258:2486-97 . Venipuncture immediately after or during the administration of Metamizole may lead to falsely low results. Testing should be performed immediately prior to Metamizole dosing. MILD ICTERUS DETECTED. The result may be falsely decreased due to icterus or other interferents. Clinical correlation is recommended. Repeat testing may be considered. Performed By: #### V TA #### [facility] [address], [place] [id number] Cholesterol in HDL [Mass/Vol] 52.4 mg/dL Normal [facility] Comment on above: Result Comment: . AGE VERY LOW LOW NORMAL HIGH 0-19 Y < 35 < 40 40-45 ---- 20-24 Y ---- < 40 >45 ---- >24 Y ---- < 40 40-60 >60 . Performed By: #### V TA #### [facility] [address], [place] [id number] Cholesterol in LDL [Mass/Vol] 79 mg/dL Normal 0 - 99 [facility] Comment on above: Result Comment: . NEAR BORD AGE DESIRABLE OPTIMAL HIGH HIGH VERY HIGH 0-19 Y 0 - 109 --- 110-129 >/= 130 ---- 20-24 Y 0 - 119 --- 120-159 >/= 160 ---- >24 Y 0 - 99 100-129 130-159 160-189 >/=190 . Performed By: #### V TA #### [facility] [address], [place] [id number] Cholesterol in VLDL [Mass/Vol] 27 mg/dL Normal 0 - 40 [facility] Comment on above: Performed By: #### V TA #### [facility] [address], [place] [id number] Cholesterol.total/Choles terol in HDL [Mass ratio] 3.0 {ratio} Normal [facility] Comment on above: Result Comment: REF VALUES DESIRABLE < 3.4 HIGH RISK > 5.0 Performed By: #### V LUIS #### [facility] [address], [place] [id number] Triglyceride [Mass/Vol] 134 mg/dL Normal 0 - 149 [facility] Comment on above: Result Comment: . AGE DESIRABLE BORDERLINE HIGH HIGH VERY HIGH 0 D-90 D 19 - 174 ---- ---- ---- 91 D- 9 Y 0 - 74 75 - 99 >/= 100 ---- 10-19 Y 0 - 89 90 - 129 >/= 130 ---- 20-24 Y 0 - 114 115 - 149 >/= 150 ---- >24 Y 0 - 149 150 - 199 200- 499 >/= 500 . Venipuncture immediately after or during the administration of Metamizole may lead to falsely low results. Testing should be performed immediately prior to Metamizole dosing. Performed By: #### V TA #### [facility] [address], [place] [id number] RENAL FUNCTION PANELon 01-17 Albumin [Mass/Vol] 3.4 g/dL Normal 3.4 - 5.0 [facility] Comment on above: Performed By: #### V TA #### [facility] [address], [place] [id number] Anion gap [Moles/Vol] 13 mmol/L Normal 10 - 20 [facility] Comment on above: Performed By: #### V TA #### [facility] [address], [place] [id number] Calcium [Mass/Vol] 8.9 mg/dL Normal 8.6 - 10.6 [facility] Comment on above: Performed By: #### V TA #### [facility] [address], [place] [id number] Chloride [Moles/Vol] 102 mmol/L Normal 98 - 107 [facility] Comment on above: Performed By: #### V TA #### [facility] [address], [place] [id number] Creatinine [Mass/Vol] 0.48 mg/dL Low 0.50 - 1.30 [facility] Comment on above: Performed By: #### V TA #### [facility] [address], [place] [id number] GFR- AM. >60 Normal >60 [facility] Comment on above: Result Comment: CALC ULATIONS OF ESTIMATED GFR ARE PERFORMED USING THE MDRD STUDY EQUATION FOR THE IDMS-TRACEABLE CREATININE METHODS. CLIN CHEM 2007;53:766-72 Performed By: #### V TA #### [facility] [address], [place] [id number] GFR-NON AM. >60 Normal >60 [facility] Comment on above: Performed By: #### V TA #### [facility] [address], [place] [id number] Glucose [Mass/Vol] 88 mg/dL Normal 74 - 99 [facility] Comment on above: Performed By: #### V TA #### [facility] [address], [place] [id number] HCO3 (Bld) [Moles/Vol] 29 mmol/L Normal 21 - 32 [facility] Comment on above: Performed By: #### V TA #### [facility] [address], [place] [id number] Phosphate [Mass/Vol] 2.7 mg/dL Normal 2.5 - 4.9 [facility] Comment on above: Result Comment: The performance characteristics of phosphorus testing in heparinized plasma have been validated by the individual laboratory site where testing is performed. Testing on heparinized plasma is not approved by the FDA; however, such approval is not necessary. Performed By: #### V TA #### [facility] [address], [place] [id number] Potassium [Moles/Vol] 3.6 mmol/L Normal 3.5 - 5.3 [facility] Comment on above: Performed By: #### V TA #### [facility] [address], [place] [id number] Sodium [Moles/Vol] 140 mmol/L Normal 136 - 145 [facility] Comment on above: Performed By: #### V TA #### [facility] [address], [place] [id number] Urea nitrogen [Mass/Vol] 5 mg/dL Low 6 - 23 [facility] Comment on above: Performed By: #### V TA #### [facility] [address], [place] [id number] VITAMIN D, 25-HYDROXYon 12-25 VITAMIN D, 25-HYDROXY 25 ng/mL Abnormal [facility] Comment on above: Result Comment: . DEFICIENCY: < 20 NG/ML INSUFFICIENCY: 20-29 NG/ML SUFFICIENCY: 30-100 NG/ML THIS ASSAY ACCURATELY QUANTIFIES THE SUM OF VITAMIN D3, 25-HYDROXY AND VIT D2,25-HYDROXY. Performed By: #### C BCDF #### [facility] [address] [place] [address] Admission Risk Screen - Adul ton 01-17-2020 Admission Risk Screen - Adult Allergies: Allergies: No Known Allergies: Patient Verification: New W ID Band Applied in my Departmentyes Patient Identity Verified Bypatient ID Band FULL Name, include Middle, spelling matches patient's ID used for verificationyes ID Band Matches Patient ID used for Verficationyes ID Band MRN Matches EMR MRNyes Visitor Restriction: Coronavirus Visitor Restriction: Reasonable restrictions to in-person visitors will be observed due to current coronavirus pandemic. Travel History: COVID-19 Screening CompletedCOVID positive within the last 13 days Advance Directive: Advance Directive/DNRno (1) Advance Directive Information Givenpatient/family declined López Fall Screen: History of falling (immediate or previous)no (0) Secondary Diagnosisno (0) Intravenous Therapy/ Heparin/Saline Lockyes (20) Gait/Transferringnormal/ bedrest/wheelchair (0) Ambulatory Aidsnone/bedrest/nurse assist (0) Mental Statusoriented to own ability (0) Score: Low risk (<25). Moderate risk (25-44). High risk (>44).20 López InterventionsLOW INTERVENTIONS: *patient oriented to surroundings and call system, * patient/family falls education completed and documented, *patients fall status communicated during bedside handoff, *whiteboard updated, *mode of toileting discussed with patient, *bed in low position with brakes locked, *call light in reach, * non-skid footwear Family Violence Screen: Are you or have you been threatened or abused physically, emotionally, or sexually by anyoneno Do you feel UNSAFE going back to the place where you are livingno Clinical assessment: Are there any apparent signs of injuries/behaviors that could be related to abuse/neglectno Social Service Consult for abuse/neglect needed this visitno Functional Screen: Functional Screen: In the recent/past 2-4 weeks, patient or family have noticedno issues that require a speech/language consult at this time AM-PAC- Basic Mobility/Daily Activity: Patient baseline bedboundno Learning Assessment (Patient): Patient is Able to be Assessed for Learningyes Factors Influencing Readiness to Learnanxiety; pain Factors that Impact Ability to Learnacuteness of illness Devices/Methods Used to Communicatenone Learning Preferencesaudio Cultural Considerationsnone Developmental Considerationsnone Confucianist Considerationsnone Learning Assessment (Other Learner): Other learner availableno Depression Screen: During the past month, have you often been bothered by feeling down, depressed or hopelessno During the past month, have you often had little interest or pleasure in doing thingsno Have you had any thoughts of harming anyone elseno (2) [place] Suicide: Risk Screen Not Applicable/Able to Answerable to be screened In the Past Month: Have you wished you were or could go to sleep and not wake upno(2) In the Past Month: Have you had any actual thoughts of killing yourself no(2) Lifetime: Have you ever done, started to do, or prepared to do anything to end your lifeno [place] Suicide Risknegative Adult Nutrition Screen: Have you recently lost weight without tryingno Have you been eating poorly because of a decreased appetiteyes Malnutrition Screening Tool Score1 Malnutrition Screening Tool RiskMST = 0 or 1 Not at risk. Eating well with little or no weight loss Nutrition Consult needed this visitno Can Patient Participate in Room Serviceyes Patient requires Paper Dishes/Plastic Utensilsyes (sends order) Pain Screen: Pain Scalenumerical 0-10 Pain Scale Educationteaching provided Current Pain Level4 = Moderate Acceptable Pain Level0 = None Expression of Pain (nonverbal)grimace, guarding Chronic Painno Spiritual Screen: Are there any cultural, spiritual, caodaism practices/values/needs that are important for us to knowno CAGE: [place] an [place] [place] no (1) Vaccinations: Vaccination - Influenza Vaccination Screen: Is it flu season (between and June 05)Yes Screening for identified contraindications to influenza vaccination patient/caregiver refusal Vaccination - Pneumonia Vaccination Screen: Patient has received a previous pneumonia vaccine:no/unknown... Immunocompetent persons with underlying chronic conditions or reside in penitentiary care facilitiesalcoholism Persons with Functional or Anatomic Asplenianone of these conditions Immunocompromised Personsnone of these conditions Pneumonia vaccine NOT indicated due to:patient/caregiver refusal at this time Srinivasa: Skin - Srinivasa Scale: Srinivasa: Sensory Perception (response to environment)(4) no impairment Srinivasa: Moisture (degree skin exposed to moisture)(4) rarely moist Srinivasa: Activity (ability to walk)(3) walks occasionally Srinivasa: Mobility (amount/control of body movement)(4) no limitation Srinivasa: Nutrition (quality of food intake)(3) adequate Srinivasa: Friction and Shear(3) no apparent problem Srinivasa: Score21 Significant Indicatiors: Significant Indicators: Complete Pressure Injury: Pressure Injury Present on Admissionno Electronic Signatures: Cj Allison (RN) (Signed 17-Jan-2020 01:30) Authored: Admission Risk Screens, López Fall Screen, Doug, Srinivasa, Pressure Injury Last Updated: 17-Jan-2020 01:30 by Cj Allison (RN) References: 1. Data Referenced From Risk Screen - Adult Emergency 16-Jan-2020 11:19 2. Data Referenced From Triage - ED 16-Jan-2020 10:15 Normal [facility] CBCon 01-17-2020 Erythrocyte distribution width (RBC) [Ratio] 12.4 % Normal 11.5 - 14.5 [facility] Comment on above: Performed By: #### C BC #### [facility] [address] [place] [address] Hematocrit (Bld) [Volume fraction] 42.0 % Normal 41.0 - 52.0 [facility] Comment on above: Performed By: #### C BC #### [facility] [address] [place] [address] Hemoglobin (Bld) [Mass/Vol] 14.4 g/dL Normal 13.5 - 17.5 [facility] Comment on above: Performed By: #### C BC #### [facility] [address] [place] [address] MCHC (RBC) [Mass/Vol] 34.3 g/dL Normal 32.0 - 36.0 [facility] Comment on above: Performed By: #### C BC #### [facility] [address] [place] [address] MCV (RBC) [Entitic vol] 101 fL High 80 - [address] [facility] Comment on above: Performed By: #### C BC #### [facility] [address] [place] [address] Nucleated RBC/100 WBC (Bld) [Ratio] 0.0 /100 WBC Normal 0.0-0.0 [facility] Comment on above: Performed By: #### C BC #### [facility] [address] [place] [address] Platelets (Bld) [#/Vol] 105 10*3/uL Low 150 - 450 [facility] Comment on above: Performed By: #### C BC #### [facility] [address] [place] [address] RBC (Bld) [#/Vol] 4.14 x10E12/L Low 4.50 - 5.90 [facility] Comment on above: Performed By: #### C BC #### [facility] [address] [place] [address] WBC (Bld) [#/Vol] 5.0 10*3/uL Normal 4.4 - 11.3 [facility] Comment on above: Performed By: #### C BC #### [facility] [address] [place] [address] COMPREHENSIVE PANELon 2019 Albumin [Mass/Vol] 3.3 g/dL Low 3.4 - 5.0 [facility] Comment on above: Performed By: #### A LC #### [facility] [address] [place] [address] ALP [Catalytic activity/Vol] 102 U/L Normal 33 - 120 [facility] Comment on above: Performed By: #### A LC #### [facility] [address] [place] [address] ALT [Catalytic activity/Vol] 53 U/L High 10 - 52 [facility] Comment on above: Result Comment: Hue ents treated with Sulfasalazine may generate falsely decreased results for ALT. Performed By: #### A LC #### [facility] [address] [place] [address] Anion gap [Moles/Vol] 13 mmol/L Normal 10 - 20 [facility] Comment on above: Performed By: #### A LC #### [facility] [address] [place] [address] AST [Catalytic activity/Vol] 128 U/L High 9 - 39 [facility] Comment on above: Performed By: #### A LC #### [facility] [address] [place] [address] Bilirubin [Mass/Vol] 2.7 mg/dL High 0.0 - 1.2 [facility] Comment on above: Performed By: #### A LC #### [facility] [address] [place] [address] Calcium [Mass/Vol] 8.5 mg/dL Low 8.6 - 10.6 [facility] Comment on above: Performed By: #### A LC #### [facility] [address] [place] [address] Chloride [Moles/Vol] 97 mmol/L Low 98 - 107 [facility] Comment on above: Performed By: #### A LC #### [facility] [address] [place] [address] Creatinine [Mass/Vol] 0.56 mg/dL Normal 0.50 - 1.30 [facility] Comment on above: Performed By: #### A LC #### [facility] [address] [place] [address] GFR- AM. >60 Normal >60 [facility] Comment on above: Result Comment: CALC ULATIONS OF ESTIMATED GFR ARE PERFORMED USING THE MDRD STUDY EQUATION FOR THE IDMS-TRACEABLE CREATININE METHODS. CLIN CHEM 2007;53:766-72 Performed By: #### A LC #### [facility] [address] [place] [address] GFR-NON AM. >60 Normal >60 [facility] Comment on above: Performed By: #### A LC #### [facility] [address] [place] [address] Glucose [Mass/Vol] 78 mg/dL Normal 74 - 99 [facility] Comment on above: Performed By: #### A LC #### [facility] [address] [place] [address] HCO3 (Bld) [Moles/Vol] 32 mmol/L Normal 21 - 32 [facility] Comment on above: Performed By: #### A LC #### [facility] [address] [place] [address] Potassium [Moles/Vol] 3.7 mmol/L Normal 3.5 - 5.3 [facility] Comment on above: Performed By: #### A LC #### [facility] [address] [place] [address] Protein [Mass/Vol] 5.6 g/dL Low 6.4 - 8.2 [facility] Comment on above: Performed By: #### A LC #### [facility] [address] [place] [address] Sodium [Moles/Vol] 138 mmol/L Normal 136 - 145 [facility] Comment on above: Performed By: #### A LC #### [facility] [address] [place] [address] Urea nitrogen [Mass/Vol] 11 mg/dL Normal 6 - 23 [facility] Comment on above: Performed By: #### A LC #### [facility] [address] [place] [address] Daily Progress Note-General Internal Medicineon 01-17-2020 Daily Progress Note-General Internal Medicine Service: General Internal Medicine Subjective Data: TAPAN DAILEY is a 39 year old Male who is Hospital Day # 2. Overnight Events: Patient had an uneventful night. Additional Information: Patient reported increased abdominal pain, rated 4/10 with radiations to back. On RA and saturating well (SpO2 90s). Denied n/v, chest pain, SOB, dysuria, HOWELL, paresthesia. Objective Data: Objective Information: T PRBPSpO2 [id number]/8497% Date/Time01/16 16: 16: 16: 16: 16:07 Range(35.8C - 36.8C ) (63 - 86 ) (16 - 18 ) (99 - 134 )/ (66 - 89 ) (95% - 98% ) Pain reported at 01/16 17:03: 8 = Severe Weights 01/16 1:31: Weight in kg (Weight (kg)) 67.3 01/16 1:31: Weight in lbs ((lbs)) 148.3 01/16 1:31: BMI (kg/m2) (BMI (kg/m2)) 19.579 Physical Exam by System: Constitutional: Well developed, awake/alert/oriented x3, no distress, alert and cooperative Eyes: PERRL, EOMI, clear sclera ENMT: mucous membranes moist, no apparent injury, no lesions seen Head/Neck: Neck supple, no apparent injury, thyroid without mass or tenderness, No JVD, trachea midline, no bruits Respiratory/Thorax: Patent airways, CTAB, normal breath sounds with good chest expansion, thorax symmetric Cardiovascular: Regular, rate and rhythm, no murmurs, 2+ equal pulses of the extremities, normal S 1and S 2 Gastrointestinal: Nondistended, soft, epigastric-tenderness, no rebound tenderness or guarding, or masses palpable, no organomegaly, +BS, no bruits Musculoskeletal: ROM intact, no joint swelling, normal strength Extremities: normal extremities, no cyanosis edema, contusions or wounds, no clubbing Neurological: alert and oriented x3, intact senses, motor, response and reflexes, normal strength Psychological: Appropriate mood and behavior Skin: Warm and dry, no lesions, no rashes. Diffusely tattooed Recent Lab Results: Results: I have reviewed these laboratory results: Complete Blood Count 17-Jan-2020 07:04:00 ResultValue White Blood Cell Count 5.0 Nucleated Erythrocyte Count 0.0 Red Blood Cell Count 4.14 L HGB 14.4 HCT 42.0 MCV 101 H MCHC 34.3 PLT 105 L RDW-CV 12.4 Comprehensive Metabolic Panel 17-Jan-2020 07:04:00 ResultValue Glucose, Serum 78 NA 138 K 3.7 CL 97 L Bicarbonate, Serum 32 Anion Gap, Serum 13 BUN 11 CREAT 0.56 GFR-Non >60 GFR- >60 Calcium, Serum 8.5 L ALB 3.3 L ALKP 102 T Pro 5.6 L T Bili 2.7 H Alanine Aminotransferase, Serum 53 H Aspartate Transaminase, Serum 128 H Triglycerides, Serum 17-Jan-2020 07:04:00 ResultValue Triglycerides, Serum 123 . AGE DESIRABLE BORDERLINE HIGH HIGH VERY HIGH 0 D-90 D 19 - 174 ---- ---- ---- 91 D- 9 Y 0 - 74 75 - 99 >/= 100 ---- 10-19 Y 0 - 89 90 - 129 >/= 130 ---- D-Dimer, Non VTE 16-Jan-2020 14:22:00 ResultValue D-Dimer, Non VTE 1276 A C Reactive Protein, Serum 16-Jan-2020 14:22:00 ResultValue C Reactive Protein, Serum 1.70 A Sedimentation Rate, Erythrocyte -Dec-2019 14:22:00 ResultValue Sedimentation Rate, Erythrocyte 6 Assessment and Plan: Code Status: Code StatusFull Code Assessment: Mr. Dailey is a 39 year old male with of inguinal hernia, cervical fusion, polysusbstance abuse (EtOh, opioid) now on Suboxone for several years presenting with epigastric abdominal pain with LLQ and back radiations being admitted for management of acute pancreatitis likely 2/2 to gallstone pancreatic vs EtOh pancreatitis. Hx of chronic EtOh consumption and progressive abdominal pain with similar episodes of pain for the past year. Will continue workup for choledocholithiasis, cholecystitis, hepatitis, obstruction, or viral gastroenteritis. Acute pancreatitis is most likely as patient has elevation in serum lipase (though not 2-3x upper limit of normal), acute persistent epigastric pain (radiating to the back), and characteristic findings of pancreatitis on CT imaging. Etiology of pancreatitis could be gallstones (small gallstones and biliary sludge found on RUQ U/S) or hx of alcohol use (patient with regular alcohol use for last five years). Patient at reasonable risk for chronic pancreatitis as he reported having similar episodes for an extensive period. Patient currently on bowel rest but will resume feeds w/low fat diet if tolerated #Acute on epigastric chronic abdominal pain 2/2 acute pancreatitis (Gallstone vs EtOh) -IVF 100cc/hr LR for 10hrs. Will adjust rate if sx improving -Gently hydration in light of any increase in oxygen requirement as patient is COVID+ -Pain control with Toradol 30mg 8hrs. Hx of opiod abuse now on Suboxone -Nausea control with Zofran prn; ECG wnl -CT mentioned distended urinary bladder; bladder scan to ensure patient is not retaining significant amounts of urine as we are giving him significant fluids -TG 123, Serum glucose 78, calcium 8.5, - f/u on lipid panel to assess for elevated triglycerides - f/u pancreatic elastate stool, fat soluble vitamin assay - will schedule outpatient elective cholecystectomy -Patient without ileus but does endorse n/vpatient also mentions subjective hunger, so will initiate clear liquid diet #COVID-19 positive -On RA, not hypoxic, CXR w/o bilateral interstitial infiltrates -D-dimer 1276 - f/u on Covid-19 labs - On Lovenox 40mg BID for A/C -Holding on dexamethasone and remdesivir and will initiate in setting of worsening respiratory status -Of note, patient is probably early in his disease course and may manifest symptoms soon #History of substance abuse -Patient with hx of abuse with oxycontin and percocet -Has been taking suboxone for the last 5-6 years -Avoid opioids for pain control -c/w CIWA protocol in place withith lorazepam -IV thiamine x2 days -Nicotine patch for tobacco use F: Resuscitate per protocol for acute pancreatitis E: Replete as necessary N: Clear liquid diet DVT ppx: Lovenox 40mg BID GI ppx: PPI as patient has emesis Code status: FULL CODE (confirmed on admission) NOK: Father (Rajeev Dailey): [phone] Signature/Cosignature/At testation: Note Completion: I am a: Resident/Fellow Attending AttestationI saw and evaluated the patient. I personally obtained the sinha and critical portions of the history and physical exam or was physically present for sinha and critical portions performed by the resident/fellow. I reviewed the resident/fellows documentation and discussed the patient with the resident/fellow. I agree with the resident/fellows medical decision making as documented in the note. I personally evaluated the patient [id number] Comments/ Additional Findings See attestation from H&P Electronic Signatures: Cj Levin (Resident)) (Signed 17-Jan-2020 20:24) Entered: Service, Subjective Data, Objective Data, Assessment and Plan Authored: Service, Subjective Data, Objective Data, Assessment and Plan, Note Completion Clyde Carrasco) (Signed 18-Jan-2020 12:06) Authored: Note Completion Co-Signer: Assessment and Plan, Note Completion Last Updated: 18-Jan-2020 12:06 by Clyde Carrasco) Normal [facility] Discharge Planning [id number] 1 03-18-2019 Discharge Planning Note2 Discharge Plann ing: Needs Prior to Discharge (ex. Home Care Orders, IV/O2 prescriptions) none Discharge Barriers (ex. 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 Team members present: MD, TCC and PCN Plan per Medical/Surgical team: Patient admitted for ABD pain found to have pancreatitis and COVID +. Continuing to monitor pain, and respiratory status. Status: inpatient Payor source: [place] Discharge disposition: home independently Potential Barriers: COVID + ADOD: Patient attempted several times to assess patient over telephonic communication to maintain safe distancing for COVID-19 precautionary measures, patient not answering. Will attempt at another time. Chaya Quiroz RN, BSN, Transitional Sewing Machine Assembler Doc Halo [id number] or 01/18/20 113 Sewing Machine Assembler Note This information was obtained via telephonic communication to maintain safe distancing for COVID-19 precautionary measures. Assessment completed over the phone. Discharge Note Patient discharged to home. Patient verbalizes understanding of instructions, medications, and appointments. IV removed and catheter intact. Patient received 50mg librium prior to discharge. Meds to beds delivered to patient. Discharge is completed. patient ambulated self to meet family with mask on. Educated in precautions regarding isolation to protect spread to family members in his home. patient verbalizes understanding. Lily Chun RN [phone] 01/18/20 Assessment: Discharge Planning Assessment [id number] Discharge Planning Assessment Completed byChaya Quiroz RN, BSN, Transitional Sewing Machine Assembler Doc Halo [id number] or [phone]- girl friend Stated Reason for Admissionpain in my stomach, nausea(1) Arrived Fromemergency department (1) Readmission Within the Last 30 Daysno previous admission in last 30 days PCPLuis Carnes PCP Last Date Seencouple months ago [facility] [place] Medication Adherence/Afford/Obtainy es InsuranceAnthem Lives Withsignificant other(1) Living Arrangementsapartment(1) Recent Falls/ Injury/ Need Assist with Ambulationdenies Prior Level of Functioningindependent with ADLS, Iadls Home Care Agency/Support Servicesn/a DME Supplier Name/Numbern/a O2 LPMn/a Home O2 Suppliern/a Diabetic/Supplies Neededn/a Hemodialysis Schedulen/a Other Needsn/a Resource/Environmental Concernsnone(1) Social Determinants of Health Identifiedn/a Special Considerationsn/a Transportation Home Who/HowPatients girlfriend will transport home. Anticipated Transition [place](1) Services Anticipated at Transitionnone(1) Anticipated Changes Related to Illnessnone Equipment Needed After Dischargenone Anticipated Discharge Facility/Level of Care NeedsHome Nursing Checklist: Lines/Cathetersremoved/a ppropriate for next level of care Patient has Prescriptionsno prescriptions needed Transportation for Discharge Confirmedyes Discharge Instructions Reviewed WithPatient Discharge Instructions Outcomeverbalize recall/understanding Discharge Instructions Review Completed with Patient/Family (diet, activity, pt instructions)yes Discharge Documentation: Discharge/Transfer Date/[id number] 17:13 Discharge Modeambulatory Discharged Accompanied Byfamily member Transportation Methodprivate car Valuables/Medications/Be longings Returnedyes Final DispositionHome Electronic Signatures: Lily Chun (SHALA) (Signed 18-Jan-2020 17:13) Authored: Discharge Planning, Nursing Checklist, Discharge Documentation Chaya Quiroz (RN) (Signed 18-Jan-2020 11:43) Authored: Discharge Planning, Assessment Last Updated: 18-Jan-2020 17:13 by Lily Chun (SHALA) References: 1. Data Referenced From Patient Profile - Adult v2 17-Jan-2020 01:31 Normal [facility] Discharge [id number] 020 Discharge Profile2 Discharge Orders: Anticipated Discharge Date: Anticipated Discharge [id number] Activity: Instructions: Continue self quarantine at home for [address] Diet: Dietlow fat Call Provider If (Homegoing Patients): Breathing faster than normal. Breathing harder than normal or having retractions. Fever of 100.4 F (38 C) or higher. Temperature is greater than 102 degrees. Chills. Drinking less than normal. Acting very sleepy and difficult to awaken. Vomiting (throwing up) and not able to eat or drink for 12 hours. 3 or more loose, watery bowel movements in 24 hours (diarrhea). Heart Failure: Patient Instructions: - CALL 911 IF YOU HAVE ANY OF THE SIGNS AND SYMPTOMS OF HEART FAILURE: 1. Chest pain 2. Significant Shortness of breath 3. Fainting. - Notify your physician immediately if you have shortness of breath; weight gain of 3 lbs. or more; fatigue and loss of energy; swelling of lower extremities or abdomen; dizziness or fainting; change of appetite; and frequent coughing. - Patient received Living With Heart Failure book. - Daily weight on the same scale, same time after voiding and before eating. - Maintain daily weight log. Activity: - Balance activity with rest, gradually increase your activity as tolerated. - Exercise as prescribed by your physician. Hospital Course (Home Care/Gold Form): Hospital Course: Hospital Course: include significant abnormal lab values Tapan Dailey is a 39y M w/PMH of inguinal hernia, cervical fusion, polysusbstance abuse (EtOh, opioid) now on Suboxone for several years who presented to [facility] ED complains of progressive abdominal pain with associated vomiting and 1 episode of diarrhea. Patient also endorsed chronic nausea and usually vomits once a day non-blood or bilious in nature. Epigastric pain is rated 2/10, radiating to back and L upper quadrant. Responsive to pain medications. Patient recently presented on 01/13 with similar abdominal concerns discovered to be secondary to acute pancreatitis. Reported having chronic epigastric pain for last year that has t worsened in severity over the last few days. On 01/13, received IV Zofran and 1L of fluid. Laboratory studies indicated a Lipase of 121. RUQ U/S was concerning for gallbladder sludge with small stones without evidence of acute choleystitis. CT A/P revealed interstitial pancreatitis, most likely etiology 2/2 gallstones vs. alcohol induced. Recommendations by ED for inpatient admission were made but refused stating personal family reasons. Patient received Folic Acid 1mg, Toradol for pain management, Zofran for nausea control. Bowel rest and fluid resuscitation were started. Patient responded with improvements of abdominal pain. CIWA scores improved, following active management. Patient recommended to follow outpatient for elective cholecystectomy with General surgery services Provider FINAL REVIEW of Orders: Final Review: Final Review of Medication Reconciliation and Orders Completedby Physician Reviewing ProviderCj Levin MD (Resident) at 18-Jan-2020 14:09:10 Appointments: Follow-Up Appointment 01: Physician/Dept/Duane Simmons - General Surgery Scheduled Date/[id number]-[id number]-4004 10:[address], [place] [address], Phone [phone] ReganPlease wear a mask when entering the building. Please arrive 10-15 minutes early, bring photo ID, current list of medications & dosages, insurance cards and any copay that may apply. If unable to keep this appointment, please call to cancel at least 24 hrs prior to appointment. Follow-Up Appointment 02: Physician/Dept/ServiceDr . Luis Carnes Primary Care Physician Scheduled Date/[id number]-9622 15:00 LocationPlease do not report to the office. You will be contacted for a Virtual Visit or a Phone Visit. Phone [phone] Beth[place] do not report to the office. The information has been updated to your my chart Electronic Signatures: Cj Levin ( (Resident)) (Signed 18-Jan-2020 15:35) Authored: Discharge Orders, Heart Failure, Hospital Course (Home Care/Gold Form), Provider FINAL REVIEW of Orders Martin Solis (PT ACC REP) (Signed 17-Jan-2020 14:45) Authored: Appointments, Gold Form - Nursing Coordinator Summary Arielle Prabhakar (PT ACC REP) (Signed 18-Jan-2020 15:28) Authored: Appointments Last Updated: 18-Jan-2020 15:35 by Cj Levin ( (Resident)) Normal [facility] History and Physicalon 01-16 History and Physical History of Present Illness: Admission Reason: Abdominal pain HPI: Chief Complaint: Stomach pain History of Present Illness: Tapan Dailey is a 39y M w/PMH of inguinal hernia, cervical fusion, polysusbstance abuse (EtOh, opioid) now on Suboxone for several years who presented to [facility] ED complains of progressive abdominal pain with associated vomiting and 1 episode of diarrhea. Patient also endorsed chronic nausea and usually vomits once a day non-blood or bilious in nature. Epigastric pain is rated 2/10, radiating to back and L upper quadrant. Responsive to pain medications. Patient recently presented on 01/13 with similar abdominal concerns discovered to be secondary to acute pancreatitis. Reported having chronic epigastric pain for last year that has t worsened in severity over the last few days. On 01/13, received IV Zofran and 1L of fluid. Laboratory studies indicated a Lipase of 121. RUQ U/S was concerning for gallbladder sludge with small stones without evidence of acute choleystitis. CT A/P revealed interstitial pancreatitis, most likely etiology 2/2 gallstones vs. alcohol induced. Recommendations by ED for inpatient admission were made but refused stating he had to go home to take care of his children. On arrival at home, abdominal symptoms worsened with increased vomiting. These prompted him to return to the ED. Patient denied history of inflammatory bowel disease, liver cirrhosis, and hepatitis B/C. He also denies history of any intra-abdominal surgeries, fever, chest pain, and dyspnea. Reported drinking 6-8 drinks a day (rum and coke) and this has been going on for five years. He has never had symptoms of alcohol withdrawal but indicated feeling the shakes since his stay in the ED. Last drink was on 01/15 in the morning (one shot at 8:00 AM). Has never tried to completely quit alcohol before but has tried to slow down. Patient was discovered to be COVID+ during admission despite testing negative at employee testing a few days ago. Denies fevers, chills, dyspnea, or cough, dysuria or abdominal pain. No COVID+ contacts or known exposure. - VS: BP 110/80, HR 88, RR 16, T 97.5, SpO2 98% R.A - Labs: CBC WBC 4.8, Hgb 15.9, Hct 42.8, Plt 121 CHEM Na 141, K 3.6, Cl 99, HCO3 29, BUN 9, Cr 0.64 Alcohol level 219. Lactate 3.4 INR 1.0. D-dimer 1276, CRP 1/70, ESR 6 Covid19 positive - Imaging: -CXR: No acute cardiopulmonary process. (01/14/2020)-CT A/P: Acute interstitial edematous pancreatitis of the head and uncinated process.2. Hepatic steatosis.3. Distended urinary bladder 01/14/2020: RUQ U/S: gallbladder sludge with small stones without evidence of acute choleystitis - Therapies: Folic Acid 1mg, Toradol 15mg IVP 2X, Zofran 4mg IVP Past Medical History: -Denied any active or past history Past Surgical History: Neck fusion, Hand tendon repair Foot surgery with plate placement and tendon repair Inguinal hernia repair Medications: Suboxone Allergies: NKDA Family History: -Mother- arthritis -Father: Throat cancer and unspecified gallbladder issues -Paternal grandfather: Lymph node cancer and unspecified gallbladder issues Social History: - Functional Status: - Tobacco: 20ppy - EtOH:5-6 drinks (rum and coke)/day for >5yrs - Drugs: Hx of opioids (snorting and oral form). Denied IVDU Review of Systems: As stated in HPI Physical Exam: General: conversant, NAD, Skin: no grossly visible rashes or lesions noted. Diffusely tattooed HEENT: pupils equal and round, no scleral icterus Chest: ctab, nl respiratory effort, on room air Cardiac: regular rate, normal s1, s2 Abdomen: soft, ND, epigastric tenderness, no rebound or guarding. Diminished bowel sounds Genituourinary: no indwelling urinary catheter Ext: no peripheral edema MSK: no focal joint swelling noted Neuro: AOx4, follows all commands, Psych: coherent thought process, appropriate mood and affect Allergies: No Known Allergies: Medications Prior to Admission: Outpatient Meds have not been reviewed. Objective: Objective Information: T PRBPSpO2 [id number]/8998% Date/Time01/15 10: 20: 20: 20: 20:25 Range(36.4C - 36.4C ) (63 - 88 ) (14 - 18 ) (99 - 126 )/ (68 - 91 ) (96% - 98% ) Pain reported at 01/15 14:25: 7 = Severe Recent Lab Results: Results: CBC: 01/16/2020 10:37 \ Hgb / \ 15.9 / WBC Plt 4.8 121 L / Hct \ / 42.8 \ RBC: 4.52 MCV: 95 Neutrophil %: 63.4 CMP: 01/16/2020 10:37 NA+ Cl- BUN / 141 99 9 / -------- Glucose --- 94 K+ HCO3- Creat \ 3.6 29 0.64 \ \ T Bili / \ 2.3 H / AST x ---- x ALT 186 Hx ---- x 77 H / Alk P \ / 124 H \ Calcium : 9.0 Anion Gap : 17 Albumin : 4.0 T Protein : 6.8 Coagulation: 01/16/2020 10:37 PT / 11.4 / -------< INR < 1.0 PTT\ 28 \ Assessment and Plan: Assessment: Mr. Dailey is a 39 year old male with of inguinal hernia, cervical fusion, polysusbstance abuse (EtOh, opioid) now on Suboxone for several years presenting with epigastric abdominal pain with LLQ and back radiations being admitted for management of acute pancreatitis likely 2/2 to gallstone pancreatic vs EtOh pancreatitis. Patient has chronic EtOh consumption and progressive abdominal pain with similar episodes of pain for the past year. It is also possible patient has choledocholithiasis, cholecystitis, hepatitis, obstruction, or viral gastroenteritis. Acute pancreatitis is most likely as patient has elevation in serum lipase (though not 2-3x upper limit of normal), acute persistent epigastric pain (radiating to the back), and characteristic findings of pancreatitis on CT imaging. Etiology of pancreatitis could be gallstones (small gallstones and biliary sludge found on RUQ U/S) or hx of alcohol use (patient with regular alcohol use for last five years). Patient at reasonable risk for chronic pancreatitis as he reported having similar episodes for an extensive period. Monitor closely for electrolyte derangements, hypotension, tachycardia, and decreased urine output. #Acute on epigastric chronic abdominal pain 2/2 acute pancreatitis (Gallstone vs EtOh) -IVF for hydration at rate of 5cc/kg per hour of LR -Patient w/o signs of severe hypovolemia (tachycardia or hypotension, but has been fluid resuscitated in ED) -No hypervolemia on exam, but will need to be wary of any increase in oxygen requirement as patient is COVID+ -Pain control with Toradol given hx of opiod abuse now on Suboxone -Nausea control with Zofran prn; f/u admission ECG -CT mentioned distended urinary bladder; bladder scan to ensure patient is not retaining significant amounts of urine as we are giving him significant fluids -Strict I/O and maintain urine output (<0.5 to 1 cc/kg/hr) -Monitor serum glucose and calcium, order lipid panel to assess for elevated triglycerides -Patient without ileus but does endorse n/vpatient also mentions subjective hunger, so will initiate clear liquid diet #COVID-19 positive -On RA, not hypoxic, CXR w/o bilateral interstitial infiltrates -D-dimer 1276 - f/u on Covid-19 labs - On Lovenox 40mg BID for A/C -Holding on dexamethasone and remdesivir and will initiate in setting of worsening respiratory status -Of note, patient is probably early in his disease course and may manifest symptoms soon #History of substance abuse -Patient with hx of abuse with oxycontin and percocet -Has been taking suboxone for the last 5-6 years -Avoid opioids for pain control -CIWA protocol in place with lorazepam -IV thiamine x3 days -Nicotine patch for tobacco use F: Resuscitate per protocol for acute pancreatitis E: Replete as necessary N: Clear liquid diet DVT ppx: Lovenox 40mg BID GI ppx: PPI as patient has emesis Code status: FULL CODE (confirmed on admission) NOK: Father (Rajeev Dailey): [phone] Signatures/Attestation/C ertification: Note Completion: I am a: Resident/Fellow Attending AttestationI saw and evaluated the patient. I personally obtained the sinha and critical portions of the history and physical exam or was physically present for sinha and critical portions performed by the resident/fellow. I reviewed the resident/fellows documentation and discussed the patient with the resident/fellow. I agree with the resident/fellows medical decision making as documented in the note. I personally evaluated the patient [id number] Comments/ Additional Findings Mr. Dailey is a 39 yo man with hx of alcohol use disorder and prior history of opioid use now on suboxone who presents with acute on chronic epigastric abdominal pain found to have acute pancreatitis likely due to alcohol. RUQUS with biliary sludge without cholecystitis or stones. Will workup for pancreatic insufficiency, treat with bowel rest, IVF, and analgesia. Will give thiamine and multivitamins. Monitor of CIWA. Will refer to ACS as outpatient for consideration of cholecystectomy Attending Provider Inpatient Certification StatementI certify this patients need for inpatient care based on the above documentation including; the order to admit as inpatient, the anticipated length of stay, diagnosis, problem list and plan of care, and discharge plan. Admission Order - View OnlyCurrent Admission Order. [place] [facility] [place] Diagnosis, K85.90 Acute pancreatitis;U07.1 COVID-19 Level of Care, Med/Surg Cj Levin Electronic Signatures: Cj Levin (Resident)) (Signed 16-Jan-2020 23:14) Authored: History of Present Illness, Comorbidities, Allergies, Medications Prior to Admission, Objective, Assessment and Plan, Note Completion Clyde Carrasco) (Signed 17-Jan-2020 17:21) Authored: Note Completion Co-Signer: History of Present Illness, Comorbidities, Allergies, Medications Prior to Admission, Objective, Note Completion Last Updated: 17-Jan-2020 17:21 by Clyde Carrasco) [facility] Patient Profile - Adult v2on 01-17-2020 Patient Profile - Adult v2 Profile: Initial Info: How to be AddressedNate Spoken Language PreferredEnglish Source of Informationpatient Stated Reason for Admissionpain in my stomach, nausea Patient Belongingsremains with patient Arrived Fromemergency department Medications Brought to Hospitalno Are you currently using the Personal Electronic Health Record or [facility]no Are you interested in learning more about [facility] for the management of your healthnot at this time Wants Family/Rep Notified of Admissionno Notify PCPdeferred, unable to answer Informed of Patient Visiting Rightss General Health: Weight in kg67.3 kilogram(s)(1) Weight in hst590.3 pound(s) Weight Methodactual (measured) Scale Typebed Height in cm185.4 centimeter(s) Height in feet6 feet(2) Height in inches1 inch(es)(2) Height Methodstated BMI (kg/m2)19.579 square meter RSP Based Care: How would you like to participate in your careCommunicate What is the number one concern for you during this hospitalizationto not be in pain What is the most important thing we can do to support you during this hospitalizationget me better and back home Is there anything we need to know to best care for youkeep me infformed Substance: Current or Former Substance Use never: e-Cigarette/Vaping(3) YES: Cigarette/Tobacco(3), Alcohol(3), Street Drugs(3) Tobacco Cessation Education (provide if tobacco use within the last 12 mos)yes Health Mgmt: Symptoms/Conditions Managed at Homenone Barriers to Managing Healthnone Relationship/Environ: Significant Exposurenone Resource/Environmental Concernsnone Primary Source of Support/Comfortsignifica nt other Lives Withsignificant other Living Arrangementsapartment Services Anticipated at Transitionnone Anticipated Transition Tohome Significant IndicatorsComplete Information Review: Allergies, Home Meds and Significant Events have been Reviewed and Verified with Patient/Familyyes ALLERGY, INTOLERANCE, ADVERSE EVENT: Allergies: No Known Allergies: Active Electronic Signatures: Cj Allison (RN) (Signed 17-Jan-2020 01:48) Authored: Initial Info, General Health, [facility] Based Care, Substance, Health Mgmt, Relationship/Environ, Additional Information Last Updated: 17-Jan-2020 01:48 by Cj Allison (RN) References: 1. Data Referenced From 1. Vital Signs 16-Jan-2020 22:56 2. Data Referenced From 1. Vital Signs 16-Jan-2020 10:15 3. Data Referenced From Risk Screen - Adult Emergency 16-Jan-2020 11:19 Normal [facility] TRIGLYCERIDESon 01-17-2020 Triglyceride [Mass/Vol] 123 mg/dL Normal 0 - 149 [facility] Comment on above: Result Comment: . AGE DESIRABLE BORDERLINE HIGH HIGH VERY HIGH 0 D-90 D 19 - 174 ---- ---- ---- 91 D- 9 Y 0 - 74 75 - 99 >/= 100 ---- 10-19 Y 0 - 89 90 - 129 >/= 130 ---- 20-24 Y 0 - 114 115 - 149 >/= 150 ---- >24 Y 0 - 149 150 - 199 200- 499 >/= 500 . Venipuncture immediately after or during the administration of Metamizole may lead to falsely low results. Testing should be performed immediately prior to Metamizole dosing. Performed By: #### A LC #### [facility] [id number] [place] [address] ALCOHOLon 01-16-2020 Ethanol [Mass/Vol] 219 mg/dL Abnormal [facility] Comment on above: Result Comment: FOR MEDICAL USE ONLY. . REF VALUES <10 Performed By: #### C OAGS #### [facility] [address] [place] [address] C-REACTIVE PROTEINon 020 CRP [Mass/Vol] 1.70 mg/dL Abnormal [facility] Comment on above: Result Comment: REF VALUE < 1.00 Performed By: #### C OAGS #### [facility] [address] [place] [address] CBC AND DIFFERENTIALon 01-15 % AUTOMATED IMMATURE GRAN 0.6 % Normal 0.0 - 0.9 [facility] Comment on above: Result Comment: [place] t[place] Granulocyte Count (IG) includes promyelocytes, myelocytes and metamyelocytes but does not include bands. Percent differential counts (%) should be interpreted in the context of the absolute cell counts (cells/L). Performed By: #### A LC #### [facility] [address] [place] [address] Basophils (Bld) [#/Vol] 0.02 10*3/uL Normal 0.00 - 0.1 0 [facility] Comment on above: Performed By: #### A LC #### [facility] [address] [place] [address] Basophils/100 WBC (Bld) 0.4 % Normal 0.0 - 2.[address] [facility] Comment on above: Performed By: #### A LC #### [facility] [address] [place] [address] Eosinophils (Bld) [#/Vol] 0.03 10*3/uL Normal 0.00 - 0.70 [facility] Comment on above: Performed By: #### A LC #### [facility] [address] [place] [address] Eosinophils/100 WBC (Bld) 0.6 % Normal 0.0 - 6.0 [facility] Comment on above: Performed By: #### A LC #### [facility] [address] [place] [address] Erythrocyte distribution width (RBC) [Ratio] 12.3 % Normal 11.5 - 14.5 [facility] Comment on above: Performed By: #### A LC #### [facility] [address] [place] [address] Hematocrit (Bld) [Volume fraction] 42.8 % Normal 41.0 - 52.0 [facility] Comment on above: Performed By: #### A LC #### [facility] [address] [place] [address] Hemoglobin (Bld) [Mass/Vol] 15.9 g/dL Normal 13.5 - 17.5 [facility] Comment on above: Performed By: #### A LC #### [facility] [address] [place] [address] Lymphocytes (Bld) [#/Vol] 1.24 10*3/uL Normal 1.20 - 4.80 [facility] Comment on above: Performed By: #### A LC #### [facility] [address] [place] [address] Lymphocytes/100 WBC (Bld) 25.7 % Normal 13.0 - 44.0 [facility] Comment on above: Performed By: #### A LC #### [facility] [address] [place] [address] MCHC (RBC) [Mass/Vol] 37.1 g/dL High 32.0 - 36.0 [facility] Comment on above: Performed By: #### A LC #### [facility] [address] [place] [address] MCV (RBC) [Entitic vol] 95 fL Normal 80 - 100 [facility] Comment on above: Performed By: #### A LC #### [facility] [address] [place] [address] Monocytes (Bld) [#/Vol] 0.45 10*3/uL Normal 0.10 - 1.0 0 [facility] Comment on above: Performed By: #### A LC #### [facility] [address] [place] [address] Monocytes/100 WBC (Bld) 9.3 % Normal 2.0 - 10.0 [facility] Comment on above: Performed By: #### A LC #### [facility] [address] [place] [address] Neutrophils (Bld) [#/Vol] 3.05 10*3/uL Normal 1.20 - 7.70 [facility] Comment on above: Performed By: #### A LC #### [facility] [address] [place] [address] Neutrophils/100 WBC (Bld) 63.4 % Normal 40.0 - 80.0 [facility] Comment on above: Performed By: #### A LC #### [facility] [address] [place] [address] Nucleated RBC/100 WBC (Bld) [Ratio] 0.0 /100 WBC Normal 0.0-0.0 [facility] Comment on above: Performed By: #### A LC #### [facility] [address] [place] [address] Platelets (Bld) [#/Vol] 121 10*3/uL Low 150 - 450 [facility] Comment on above: Performed By: #### A LC #### [facility] [address] [place] [address] RBC (Bld) [#/Vol] 4.52 x10E12/L Normal 4.50 - 5.90 [facility] Comment on above: Performed By: #### A LC #### [facility] [address] [place] [address] WBC (Bld) [#/Vol] 4.8 10*3/uL Normal 4.4 - 11.3 [facility] Comment on above: Performed By: #### A LC #### [facility] [address] [place] [address] COAGULATION SCREENon 020 aPTT Coag (Bld) [Time] 28 s Normal 25 - 35 [facility] Comment on above: Result Comment: THE APTT IS NO LONGER USED FOR MONITORING UNFRACTIONATED HEPARIN THERAPY. FOR MONITORING HEPARIN THERAPY, USE THE HEPARIN ASSAY. Performed By: #### A LC #### [facility] [address] [place] [address] INR Coag (PPP) [Relative time] 1.0 {INR} Normal 0.9 - 1.1 [facility] Comment on above: Performed By: #### A LC #### [facility] [address] [place] [address] PT Coag (PPP) [Time] 11.4 s Normal 10.1 - 13.3 [facility] Comment on above: Performed By: #### A LC #### [facility] [address] [place] [address] COMPREHENSIVE PANELon 2019 Albumin [Mass/Vol] 4.0 g/dL Normal 3.4 - 5.0 [facility] Comment on above: Performed By: #### A LC #### [facility] [address] [place] [address] ALP [Catalytic activity/Vol] 124 U/L High 33 - 120 [facility] Comment on above: Performed By: #### A LC #### [facility] [address] [place] [address] ALT [Catalytic activity/Vol] 77 U/L High 10 - 52 [facility] Comment on above: Result Comment: Hue ents treated with Sulfasalazine may generate falsely decreased results for ALT. Performed By: #### A LC #### [facility] [address] [place] [address] Anion gap [Moles/Vol] 17 mmol/L Normal 10 - 20 [facility] Comment on above: Performed By: #### A LC #### [facility] [address] [place] [address] AST [Catalytic activity/Vol] 186 U/L High 9 - 39 [facility] Comment on above: Performed By: #### A LC #### [facility] [address] [place] [address] Bilirubin [Mass/Vol] 2.3 mg/dL High 0.0 - 1.2 [facility] Comment on above: Performed By: #### A LC #### [facility] [address] [place] [address] Calcium [Mass/Vol] 9.0 mg/dL Normal 8.6 - 10.6 [facility] Comment on above: Performed By: #### A LC #### [facility] [address] [place] [address] Chloride [Moles/Vol] 99 mmol/L Normal 98 - 107 [facility] Comment on above: Performed By: #### A LC #### [facility] [address] [place] [address] Creatinine [Mass/Vol] 0.64 mg/dL Normal 0.50 - 1.30 [facility] Comment on above: Performed By: #### A LC #### [facility] [address] [place] [address] GFR- AM. >60 Normal >60 [facility] Comment on above: Result Comment: CALC ULATIONS OF ESTIMATED GFR ARE PERFORMED USING THE MDRD STUDY EQUATION FOR THE IDMS-TRACEABLE CREATININE METHODS. CLIN CHEM 2007;53:766-72 Performed By: #### A LC #### [facility] [address] [place] [address] GFR-NON AM. >60 Normal >60 [facility] Comment on above: Performed By: #### A LC #### [facility] [address] [place] [address] Glucose [Mass/Vol] 94 mg/dL Normal 74 - 99 [facility] Comment on above: Performed By: #### A LC #### [facility] [address] [place] [address] HCO3 (Bld) [Moles/Vol] 29 mmol/L Normal 21 - 32 [facility] Comment on above: Performed By: #### A LC #### [facility] [address] [place] [address] Potassium [Moles/Vol] 3.6 mmol/L Normal 3.5 - 5.3 [facility] Comment on above: Performed By: #### A LC #### [facility] [address] [place] [address] Protein [Mass/Vol] 6.8 g/dL Normal 6.4 - 8.2 [facility] Comment on above: Performed By: #### A LC #### [address] [place] [address] Sodium [Moles/Vol] 141 mmol/L Normal 136 - 145 [facility] Comment on above: Performed By: #### A LC #### [address] [place] [address] Urea nitrogen [Mass/Vol] 9 mg/dL Normal 6 - 23 [facility] Comment on above: Performed By: #### A LC #### [place] [address] CORONAVIRUS 2019, SCREEN ASY MPTOMATICon 01-16-2020 CORONAVIRUS 2019,PCR DETECTED Abnormal Not Detected [facility] Comment on above: Order Comment: ERIKA POE DETECTED COVID TO PAUL OLMSTEAD [id number]., 01/16/2020 22:06 Result Comment: . This assay is designed to detect the N2 and E genes of SARS-CoV-2 via nucleic acid amplification. A Not Detected result does not preclude COVID-19 infection since the adequacy of sample collection and/or low viral burden may result in presence of viral nucleic acids below the clinical sensitivity of this test method. Fact sheet for providers: www.fda.gov/media/346101/download Fact sheet for patients: www.fda.gov/media/435116/download This test has received FDA Emergency Use Authorization (EUA) and has been verified by [facility] ([facility]). This test is only authorized for the duration of time that circumstances exist to justify the authorization of the emergency use of in vitro diagnostic tests for the detection of SARS-CoV-2 virus and/or diagnosis of COVID-19 infection under section 564(b)(1) of the Act, 21 U.S.C. 360bbb-3(b)(1), unless the authorization is terminated or revoked sooner. [facility] is certified under CLIA-88 as qualified to perform high complexity testing. Testing is performed in the [facility] located at [address] [place] [address]. BETTE POE DETECTED COVID TO PAUL OLMSTEAD [id number]., 01/16/2020 22:06 Performed By: #### C BCDF #### [address] [place] [address] Lab Specimen Source Nasal, Nasopharyngeal Normal [facility] Comment on above: Order Comment: ERIKA POE DETECTED COVID TO PAUL OLMSTEAD [id number]., 01/16/2020 22:06 Performed By: #### C BCDF #### [facility] [address] [place] [address] EMPLOYED IN HEALTHCARE? No Normal [facility] Comment on above: Order Comment: ERIKA Vo RB DETECTED COVID TO PAUL OLMSTEAD [id number]., 01/16/2020 22:06 Performed By: #### C BCDF #### [facility] [address] [place] [address] FIRST COVID NASAL SWAB TEST? Unknown Normal [facility] Comment on above: Order Comment: ERIKA Vo RB DETECTED COVID TO PAUL OLMSTEAD [id number]., 01/16/2020 22:06 Performed By: #### C BCDF #### [facility] [address] [place] [address] HOSPITALIZED (OR PLANNED TO BE ADMITTED)? Yes Normal [facility] Comment on above: Order Comment: ERIKA Vo RB DETECTED COVID TO PAUL OLMSTEAD [id number]., 01/16/2020 22:06 Performed By: #### C BCDF #### [facility] [address] [place] [address] ICU? No Normal [facility] Comment on above: Order Comment: ERIKA Vo RB DETECTED COVID TO PAUL OLMSTEAD [id number]., 01/16/2020 22:06 Performed By: #### C BCDF #### [facility] [address] [place] [address] REQUIRED FOR PROCEDURE/SURGERY? Unknown Normal [facility] Comment on above: Order Comment: ERIKA Vo RB DETECTED COVID TO PAUL OLMSTEAD [id number]., 01/16/2020 22:06 Performed By: #### C BCDF #### [facility] [address] [place] [address] RESIDENT IN CONGREGATE CARE SETTING? No Normal [facility] Comment on above: Order Comment: ERIKA POE DETECTED COVID TO PAUL OLMSTEAD [id number]., 01/16/2020 22:06 Performed By: #### C BCDF #### [facility] [address] [place] [id number] SYMPTOMATIC DEFINED BY CDC? No Normal [facility] Comment on above: Order Comment: ERIKA POE DETECTED COVID TO PAUL OLMSTEAD [id number]., 01/16/2020 22:06 Performed By: #### C BCDF #### [facility] [address] [place] [id number] Clinical Event Note-Senior Zackery grant Noteon 01-16-2020 Clinical Event Note-Senior Staffing Note Clinical Event: Clinical Event Note: TopicSenior Staffing Note Details Senior Staffing Note Please see excellent PGY-1 H&P for further details. HPI: Mr. Dailey is a 39 year old male with a past medical history of substance abuse who presented to the emergency room with complains of abdominal pain. Patient initially presented on 01/13 with similar abdominal concerns. Patient endorsed having chronic epigastric pain over the last year but it worsened in severity over the last few days. Patient also endorsed chronic nausea and usually vomits once a day (NBNB). On 01/13, patient was given IV Zofran and 1L of fluid. His lipase was elevated to 121. CT A/P was done which showed concerns of interstitial pancreatitis, most likely etiology 2/2 gallstones vs. alcohol induced. ED recommended patient should be admitted for management of acute pancreatitis but he stated he had to go home to take care of his children. After returning home, patient says that he felt worse. He continued to have n/v and abdominal pain. These symptoms ultimately led him to come back to the ED. He denies history of inflammatory bowel disease, liver cirrhosis, and hepatitis B/C. He also denies history of any intra-abdominal surgeries, fever, chest pain, and dyspnea. States he drinks 6-8 drinks a day (rum and coke) and this has been going on for five years. He has never had symptoms of alcohol withdrawal. His last drink was this morning (one shot at 8:00 AM). Has never tried to completely quit alcohol before but has tried to slow down. Of note, patient was incidentally found to be COVID+. Denies having any fevers, chills, dyspnea, or cough. Mentions that he got tested for his job a few days ago and it was negative. No COVID+ contacts or known exposure. In the ED, 01/15: -CBC: 4.8/15.9/42.8/121 -RFP: 141/3.6/99/29/9/.64 -Hepatic panel: Alk phos: 124, ALT 77, AST 186 -Lipase: 89 -Lactate 3.4 -Ethanol: 219 -INR: 1.0 -COVID-19: positive -CXR: no acute cardiopulmonary process Prior ED visit 01/13: -CT A/P: acute interstitial edematous pancreatitis of the head an uncinated process; hepatic steatosis; distended urinary bladder -RUQ U/S: gallbladder sludge and small stones without acute cholecystitis PMH: -Denies significant past medical history PSH: -Neck surgery -Hand tendon repair -Foot surgery -Inguinal hernia repair SH: -Smokes 1PPD (for 20 years) -Prior history of oxycontin and percocet use (has been on suboxone for the last 5-6 years) -ETOH use (see above) FH: -Father: throat cancer and gallbladder issues -Grandfather: lymph node cancer and gallbladder issues -Mother: arthritis Medications: -Suboxone Allergies: -Denies Vitals: T: 36.4, HR: 88, RR: 16, SpO2: 98% RA Physical exam: General: awake, alert, in no acute distress, lying down HEENT: PERRL, MMM CV: RRR, no m/r/g appreciated, no JVD Pulm: CTAB, no crackles/rhonchi, no increased work of breathing Abd: soft, slightly tender to epigastric palpation, no rebound tenderness or guarding, no Truxton sign Ext: no c/c/e Skin: tattoos but no open wounds or ulcers Neuro: AAOX3, moves all four extremities ASSESSMENT/PLAN: Mr. Dailey is a 39 year old male with a past medical history of substance abuse who presented with epigastric abdominal pain radiating to his LLQ and back and who is being admitted for management of acute pancreatitis. Working diagnosis for patients abdominal pain is most likely acute pancreatitis at this time, though patient does mention having abdominal pain for a year. Ddx also includes choledocholithiasis, cholecystitis, hepatitis, obstruction, or viral gastroenteritis. Acute pancreatitis is most likely as patient has elevation in serum lipase (though not 2-3x upper limit of normal), acute persistent epigastric pain (radiating to the back), and characteristic findings of pancreatitis on CT imaging. Etiology of pancreatitis could be gallstones (small gallstones and biliary sludge found on RUQ U/S) or hx of alcohol use (patient with regular alcohol use for last five years). In addition, patient mentions having abdominal pain for a year (but never this bad). Question of whether patient has had more than one episode of acute pancreatitis and may be at risk for chronic pancreatitis. Monitor closely for electrolyte derangements, hypotension, tachycardia, and decreased urine output. Plan: #Acute on chronic abdominal pain 2/2 acute pancreatitis -Hydration at rate of 5cc/kg per hour of LR -Patient w/o signs of severe hypovolemia (tachycardia or hypotension, but has been fluid resuscitated in ED) -No hypervolemia on exam, but will need to be wary of any increase in oxygen requirement as patient is COVID+ -Pain control with opioids, though often used in treatment of pancreatitis, is not possible as patient is on suboxone and has recovered from opioid abuse; pain control with toradol prn -Nausea control with Zofran prn; need admission ECG -CT mentioned distended urinary bladder; bladder scan to ensure patient is not retaining significant amounts of urine as we are giving him significant fluids -Strict I/O and maintain urine output (<0.5 to 1 cc/kg/hr) -Monitor serum glucose and calcium, order lipid panel to assess for elevated triglycerides -Patient without ileus but does endorse n/vpatient also mentions subjective hunger, so will initiate clear liquid diet #COVID-19 positive -On RA, not hypoxic, CXR w/o bilateral interstitial infiltrates -COVID-19 labs ordered, trend; anticoagulation decision per d-dimer -Hold on dexamethasone and remdesivir as patient is not hypoxic and does not have an infiltrate on CXR -Of note, patient is probably early in his disease course and may manifest symptoms soon #History of substance abuse -Patient with hx of abuse with oxycontin and percocet -Has been taking suboxone for the last 5-6 years -Avoid opioids for pain control -CIWA protocol in place with lorazepam -IV thiamine x3 days -Nicotine patch for tobacco use F: Resuscitate per protocol for acute pancreatitis E: Replete as necessary N: Clear liquid diet DVT ppx: Based on d-dimer GI ppx: PPI as patient has emesis Code status: FULL CODE (confirmed on admission) NOK: Father (Rajeev Dailey): [phone] Electronic Signatures: Blanca Koch ( (Resident)) (Signed 16-Jan-2020 19:14) Authored: Clinical Event Note Last Updated: 16-Jan-2020 19:14 by Blanca Koch ( (Resident)) Normal [facility] Covid 19 Resultson 0 Covid 19 Results Adult POSITIVE COVID -19 Test Talking Points Your local Health Department may be in contact, as they are tracking all POSITIVE patients. Limit your contact with others (HOME ISOLATION). You should be home quarantined unless your local public health department tells you otherwise. If you do not hear from the public health department, you should remain in quarantine at home until it has been at least 10 days since symptoms started AND no fever for at least 24 hours without fever reducing medicine AND your symptoms are improving. If you are a employee, Employee Health will contact you for return to work instructions. As much as possible, stay in a specific room and away from other people in your home. Also, you should use a separate bathroom if possible. People who do not have a need to be in your home should not visit. Try to stay in places in the home that have good airflow. Allow getting fresh air when possible. It is very important to cover their mouth and nose with a tissue when coughing or sneezing. After coughing or sneezing or cleaning up used tissues, immediately wash your hands with soap and water for at least 20 seconds. If soap and water are not available, clean hands with an alcohol-based hand reservations agent that contains at least 60% alcohol. Remember to clean your hands often. Avoid sharing personal household items such as dishes, drinking glasses, cups, eating utensils, towels, or bedding with other people or pets in your home. After you use these items, they should be washed with soap and water. Clean all high-touch surfaces (tabletops, doorknobs, bathroom fixtures, toilets, phones, keyboards, tablets, and bedside tables) every day with antibacterial cleaning solutions such as Lysol wipes, bleach, cleansers, etc. Immediately clean any surfaces that may have your blood, poop, or body fluids like tears, drool, urine, sweat, and mucous on them. Use antibacterial cleaning solutions such as Lysol wipes, bleach, cleansers, etc. Wash laundry thoroughly. Immediately remove and wash clothes or bedding that have blood, poop, or body fluids on them. Read and follow directions on labels of laundry detergent and/or clothing items. If possible, mask whenever you leave your room. Recommendations for those caring for someone with COVID-19 Wash your hands frequently with soap and water for 20 seconds or use an alcohol-based hand reservations agent that contains at least 60% alcohol. Avoid touching your face Do not permit visitors who do not have an essential need to be in your home. Mask when caring for these individuals. Household members caring for a COVID-19 positive patient should consider self-quarantine for 14 days. If symptoms develop, testing for COVID-19 should be considered.. Revised 7.28.20 Electronic Signatures: [email or web address] (ADMIN) (Signature pending) Authored Last Updated: 16-Jan-2020 12:47 by [employer] (ADMIN) Normal [facility] D-DIMER, NON VTEon 0 Fibrin D-dimer FEU IA (Bld) [Mass/Vol] 1276 ng/mL FEU Abnormal = 500 [facility] Comment on above: Result Comment: THE D-DIMER ASSAY IS REPORTED IN NG/ML FIBRINOGEN EQUIVALENT UNITS (FEU). THE RESULTS OF THIS ASSAY SHOULD NOT BE USED FOR THE EXCLUSION OF DEEP VEIN THROMBOSIS AND/OR PULMONARY EMBOLISM. Performed By: #### C BC #### [facility] [address] [place] [address] EMR ADDONon 01-16-2020 ADDON CONFIRMATION REQUEST REC'D Normal [facility] Comment on above: Performed By: #### E MRAD #### NO LOCATION NEEDED LACTATEon 01-16-2020 Lactate [Moles/Vol] 3.4 mmol/L High 0.4 - 2.0 [facility] Comment on above: Result Comment: Kalyn puncture immediately after or during the administration of Metamizole may lead to falsely low results. Testing should be performed immediately prior to Metamizole dosing. Performed By: #### A LC #### [facility] [address] [place] [address] LIPASEon 01-16-2020 Lipase [Catalytic activity/Vol] 89 U/L High 9 - 82 [facility] Comment on above: Result Comment: Kalyn puncture immediately after or during the administration of Metamizole may lead to falsely low results. Testing should be performed immediately prior to Metamizole dosing. J-lkhghp-m-benzoquinone imine (metabolite of Acetaminophen) will generate erroneously low results in samples for patients that have taken toxic doses of acetaminophen. Performed By: #### A LC #### [facility] [address] [place] [address] Provider Note - ED v2on 12-25 Provider Note - ED v2 Provider Note - ED v2: Chart Review: ED NOTES ED NOTES: HPI Patient is a 39 year old male with history of hiatal hernia, former opioid use disorder now maintained on suboxone for the last several years, and heavy daily EtOH use (drinks a fourth of a 1.75L handle of vodka per day) who presents to the ED for abdominal pain. Patient states he was evaluated for the same here two days ago on Thursday, 01/13. He states he was diagnosed with pancreatitis and it was recommended to him that he be admitted to the hospital. He elected to leave the ED instead, stating that he only gets to keep his children one weekend per month and that this was his one weekend to do so. He now presents back to the ED with continued nausea, vomiting, and diarrhea and states he is ready to be admitted to the hospital. Endorses continued epigastric abdominal pain with very little PO intake over the weekend. Denies any new symptoms including fever/chills, lightheadedness, cough, shortness of breath, chest pain, melena/hematochezia. Last EtOH approximately three hours prior to arrival in the ED at which time patient states he drank one shot of vodka. ROS A complete 12-point review of systems was performed and is otherwise negative, except as noted in HPI. PMHx/PSHx: Reviewed, documented below per EMR. FamHx: Reviewed, noncontributory to patients presenting complaint. SocHx: See HPI. Allergies: Reviewed, documented below per EMR. Medications: Reviewed, documented below per EMR. HPI provided by: patient, chart review History limited by: N/A Physical Examination Vital signs reviewed in nursing triage note, on EMR flow sheets, and at bedside. Vitals interpretation: afebrile, all vital signs WNL. GEN: Well-developed, well nourished white male laying in bed appearing mildly uncomfortable, does not appear clinically intoxicated. SKIN: Warm, dry, intact. No gross rashes or lesions. No jaundice present. EYES: Pupils equal, round, reactive to light. EOM grossly intact. Conjunctiva clear. No scleral icterus. HENT: Normocephalic, atraumatic, mucous membranes moist. NECK: Supple, trachea midline. CV: RRR, normal S1, S2. No murmurs, rubs, gallops. Pulses 2+ in all four extremities. PULM: Breathing nonlabored on room air, speaks in full sentences. Lungs clear bilaterally without crackles, wheezing, or ronchi. GI: Abd soft and mildly distended. Slightly tender to palpation in the epigastric region only. No rebound/guarding. No fluid wave. No palpable HSM. EXT: Symmetric muscle bulk, moves all equally. No joint swelling, no pedal edema. NEURO: A&Ox3, CN II-XII grossly intact, no gross focal deficits. Ambulates with normal gait. PSYCH: Answers questions appropriately with congruent affect. ED Course/MDM Results: Labs and imaging were ordered for further characterization of the patient's clinical presentation. See section(s) entitled Lab Results, Diagnostic Imaging Results Review for entirety. Notable results listed in MDM. Medical Decision Making This is a 39 year old male with history of hiatal hernia, former opioid use disorder now maintained on suboxone for the last several years, and heavy daily alcohol use who presents to the emergency department with continued epigastric abdominal pain, nausea, vomiting, and watery nonbloody diarrhea after being diagnosed with pancreatitis in this ED two days ago based on laboratory evaluation and CT imaging. Elected to avoid hospitalization at that time due to having his children for the weekend but now states he is ready to be hospitalized as he is unable to tolerate oral intake. Last EtOH use approximately three hours prior to arrival in the ED. On arrival patient is afebrile with normal vital signs, no tachycardia present. My exam reveals a well-developed male laying in bed appearing mildly uncomfortable. He does not appear to be clinically intoxicated and is alert, oriented, and answering questions appropriately. Abdomen is soft and mildly distended with discomfort with upper abdominal palpation but is overall benign. Patient was placed on CIWA protocol and treated with thiamine, folate, and a multivitamin for his alcohol use disorder. Repeat laboratory evaluation today demonstrates slightly improved LFTs though given their persistent abnormality with known acute pancreatitis and inability to tolerate oral intake will admit patient to the hospital for further management. Asymptomatic COVID test was performed prior to hospital admission which was incidentally found to be positive. Patient was then placed under isolation precautions once this resulted however he does not have clinical COVID-19 infection at this time. He was treated with IV fluids and pain medication and admitted to the internal medicine service in stable condition. All questions were answered. Assessment 1. Acute pancreatitis 2. COVID-19 Disposition - Admitted to internal medicine service Discussed with Dr. Monteiro. Stephanie Devries, DO PGY-2, Emergency Medicine HISTORY OF PRESENTING ILLNESS TAPAN is a 39 year old Male and was seen by me at 16-Jan-2020 10:20 for a chief complaint of other (seen in Ed on Thursday ,called GI for an appointment was told to come in for admission)(1). Triage Information: Most recent Vital Sign Value Date Temp (F): 97.5 01-16-2020 10:15 Temp (C): 36.4 01-16-2020 10:15 Heart Rate (beats/min): 88 01-16-2020 10:15 Respirations (breaths/min): 16 01-16-2020 10:15 SpO2 (%): 98 01-16-2020 10:15 BP Systolic (mm Hg): 110 01-16-2020 10:15 BP Diastolic (mm Hg): 80 01-16-2020 10:15 PAST MEDICAL HISTORY ATTESTATION: I have reviewed and confirmed nurse's/medic's notes for patient's medications, allergies, medical history, and surgical history ALLERGIES/INTOLERANCES: No Known Allergies HEALTH HISTORY: No documented data. OUTPATIENT MEDICATIONS: Home Medications Review Status for Reconciliation: Incomplete Med Status: Patient Currently Takes Medications Drug Name: ibuprofen 400 mg oral tablet Instructions: 1 tab(s) orally every 6 hours, As Needed -Pain - Mild (1-3) - .Meds to Beds Drug Name: thiamine 100 mg oral tablet Instructions: 1 tab(s) orally once a day -.Meds to Beds Drug Name: Multiple Vitamins with Minerals oral tablet Instructions: 1 tab(s) orally once a day -.Meds to Beds Drug Name: nicotine 21 mg/24 hr transdermal film, extended release Instructions: 1 patch transdermal every 24 hours -.Meds to Beds SIGNIFICANT EVENTS: Past Medical History Description:Hiatal Hernia RESULTS/VITAL SIGNS RESULTS: Recent Lab Results: I have reviewed these laboratory results: Comprehensive Metabolic Panel 16-Jan-2020 10:37:00 ResultValue Glucose, Serum 94 NA 141 K 3.6 CL 99 Bicarbonate, Serum 29 Anion Gap, Serum 17 BUN 9 CREAT 0.64 GFR-Non >60 GFR- >60 Calcium, Serum 9.0 ALB 4.0 ALKP 124 H T Pro 6.8 T Bili 2.3 H Alanine Aminotransferase, Serum 77 H Aspartate Transaminase, Serum 186 H Complete Blood Count + Differential 16-Jan-2020 10:37:00 ResultValue White Blood Cell Count 4.8 Nucleated Erythrocyte Count 0.0 Red Blood Cell Count 4.52 HGB 15.9 HCT 42.8 MCV 95 MCHC 37.1 H PLT 121 L RDW-CV 12.3 Neutrophil % 63.4 Immature Granulocytes % 0.6 Lymphocyte % 25.7 Monocyte % 9.3 Eosinophil % 0.6 Basophil % 0.4 Neutrophil Count 3.05 Lymphocyte Count 1.24 Monocyte Count 0.45 Eosinophil Count 0.03 Basophil Count 0.02 Coagulation Screen 16-Jan-2020 10:37:00 ResultValue Prothrombin Time, Plasma 11.4 International Normalized Ratio, Plasma 1.0 Activated Partial Thromboplastin Time 28 Coronavirus 2018, Screen Asymptomatic 16-Jan-2020 10:37:00 ResultValue Fluid Source Nasal, Nasopharyngeal Coronavirus 2018,PCR DETECTED Reference Range: Not Detected . This assay is designed to detect the N2 and E genes of SARS-CoV-2 via nucleic acid amplification. A Not Detected result does not preclude COVID-19 infection since the adequacy of sample collection and/o A First Covid Nasal Swab Test Unknown Employed in Healthcare No Symptomatic as defined by CDC No Hospitalized (or planned to be admitted) Yes ICU No Resident in congregate care setting No Required for Procedure/Surgery Unknown Lipase, Serum 16-Jan-2020 10:37:00 ResultValue Lipase, Serum 89 H Lactate, Level 16-Jan-2020 10:37:00 ResultValue Lactate, Level 3.4 H Ethanol Level 16-Jan-2020 10:37:00 ResultValue Ethanol Level 219 A Radiology Results: Impression: 1. Acute interstitial edematous pancreatitis of the head and uncinate process. 2. Hepatic steatosis. 3. Distended urinary bladder. CT Abdomen and Pelvis with IV Contrast [Jan 14 2020 7:55PM] Impression: Heterogeneous ill-defined appearance of the pancreatic parenchyma and hyperechogenicity of the peripancreatic fat likely reflecting inflammation in the setting of pancreatitis. Gallbladder sludge and small stones without additional evidence of acute cholecystitis. Hyperechoic mildly heterogeneous hepatic parenchyma consistent with hepatocellular disease such as steatosis/steatohepatiti s. Nonobstructing 0.3 cm calculus inthe lower pole of the left kidney. Ultrasound Abdomen Complete, Liver Gallbladder Pancreas Spleen [Jan 14 2020 7:09PM] VITAL SIGNS: T PRBP SpO2O2(LPM) %FiO2 Method 16-Jan-2020 12:50:[id number] 96 room air, no respiratory support 16-Jan-2020 10:15:[id number]/80 98 room air, no respiratory support CLINICAL IMPRESSION Diagnosis/Annotation: ED Dx Name:Pancreatitis, acute Code:K85.90 Name:Acute pancreatitis Code:K85.90 Name:COVID-19 Code:U07.1 Disposition: hospitalized Admit to: Telemetry. Admitting Considerations: ATTESTATION Attestation: I saw and evaluated the patient. I personally obtained the sinha and critical portions of the history and physical exam or was physically present for sinha and critical portions performed by the resident/fellow. I reviewed the resident/fellows documentation and discussed the patient with the resident/fellow. I agree with the resident/fellows medical decision making as documented in the residents note CRITICAL CARE TIME Is this a critically ill patient: no Electronic Signatures: Stephanie Devries ( (Resident)) (Signed 17-Jan-2020 15:52) Authored: ED Notes, HPI, PMH, Results/Vital Signs, Clinical Impression, Attestation, Chart Review, Scores Thania, Elba (MD) (Signed 19-Jan-2020 23:11) Authored: PMH, Attestation, Chart Review Co-Signer: ED Notes, Attestation, Chart Review Last Updated: 19-Jan-2020 23:11 by Elba Monteiro) References: 1. Data Referenced From Triage - ED 16-Jan-2020 10:15 Normal [facility] Risk Screen - Adult Emergenc yon 01-16-2020 Risk Screen - Adult Emergency Preferred Language: Preferred Language: Preferred Language for Discussing Health Care (patient/designee)Eli dotson Advanced Directives: Advance Directive/DNRno Family Violence Adult: Abuse Screen: Are you or have you been threatened or abused physically, emotionally, or sexually by anyoneno Learning Assessment (Patient): Learning Assessment (Patient): Patient is Able to be Assessed for Learningyes Factors Influencing Readiness to Learnacuteness of illness Factors that Impact Ability to Learnnone Devices/Methods Used to Communicatenone Learning Preferencesindividual instruction Cultural Considerationsnone Developmental Considerationsnone Confucianist Considerationsnone Learning Assessment (Other Learner): Learning Assessment (Other Learner): Other learner availableno Pressure Injury/TB/Substance: Pressure Injury: Pressure Injury Present on Admissionno Do you have a coughno Substance Use Current or Former Historynever: e-Cigarette/Vaping YES: Cigarette/Tobacco, Alcohol, Street Drugs Smoking Statuscurrent every day smoker Tobacco Cessation Education (provide if tobacco use within the last 12 mos) patient declined Alcohol Usedaily Drug Usehistory of abuse Admission Risk Screen: Significant IndicatorsComplete CAGE: CAGE: [place] an [place] [place] no Electronic Signatures: Sophie Sebastian (GREG) (Signed 16-Jan-2020 11:20) Authored: Preferred Language, Advanced Directives, Family Violence Adult, Learning Assessment (Patient), Learning Assessment (Other Learner), Pressure Injury/TB/Substance, Pressure Injury, CAGE Last Updated: 16-Jan-2020 11:20 by Sophei Sebastian (GREG) Normal [facility] SEDIMENTATION RATE, ERYTHROC YTEon 01-16-2020 SEDIMENTATION RATE, ERYTHROCYTE 6 mm/h Normal 0 - 15 [facility] Comment on above: Performed By: #### C OAGS #### [facility] [address] [place] [address] TH CHEST 1 VIEWon 01-16-2020 TH CHEST 1 VIEW Patient Name: TAPAN DAILEY STUDY: Chest, single portable AP view. INDICATION: covid-19 pt need admission cxr for b/l. COMPARISON: None ACCESSION NUMBER(S): [id number] ORDERING CLINICIAN: BLANCA KOCH FINDINGS: The cardiac silhouette size is within normal limits. There is no focal consolidation, edema or pneumothorax. No sizeable pleural effusion. No acute osseous abnormality. IMPRESSION: No acute cardiopulmonary process. Electronically signed by: MIRZA PETERSON MD Normal [facility] Triage - EDon 01-16-2020 Triage - ED Chart Review: ARRIVAL INFORMATION Mode of Arrival: private vehicle CHIEF COMPLAINT TAPAN DAILEY is a Male patient with a chief complaint of other (seen in Ed on Thursday ,called GI for an appointment was told to come in for admission). Triage Date/Time: 16-Jan-2020 10:15 Vital Signs: Temperature: 97.5F ( 36.4C) taken forehead Blood Pressure: 110/80 Mean: Heart Rate: 88 Respiratory Rate: 16 Pulse Oximetry: 98% on room air, no respiratory support. Height: 6 feet 1.00 inches. 185.4 CM Weight: 158.7 pounds. Calculated 72.0 kg. (stated) Calculated BMI (kg/m2): 20.946 Calculated BSA (m2) 1.93 [place] Coma Scale: Best Eye Response: (E4) spontaneous Best Motor Response: (M6) obeys commands Best Verbal Response: (V5) oriented [place] Score: 15 Cough lasting greater than 3 weeks: no Allergies: no Mask applied: yes Patient has homicidal thoughts: no ZOEY: 3 Last Known Well: known Time Last Known Well Date/Time: 16-Jan-2020 10:17 Risk Screens Suicide Risk Screen In the Past Month: Have you wished you were or wished you could go to sleep and not wake up no In the Past Month: Have you had any actual thoughts of killing yourself no In Your Lifetime: Have you ever done anything, started to do anything, or prepared to do anything to end your life no López Fall Scale Screening Has the patient fallen before (or is the patient in the ED as a result of a fall) has not had a fall Does the patient have an impaired gait does not have impaired gait Is the patient cognitively impaired not cognitively impaired Interventions: López Fall Interventions: LOW INTERVENTIONS: *patient oriented to surroundings and call system, * patient/family falls education completed and documented, *patients fall status communicated during bedside handoff, *whiteboard updated, *mode of toileting discussed with patient, *bed in low position with brakes locked, *call light in reach, * non-skid footwear TRAVEL HISTORY Travel History Coronavirus Screening: no exposure or symptoms PAIN Pain Scale Used: BHARATI Past Medical History: Past Medical History Reviewedyes Hiatal Hernia: Past Medical History, Active Electronic Signatures: Manjit Chavira (RN) (Signed 16-Jan-2020 10:17) Authored: Quick Triage, Risk Screens, Pain, Chart Review, Scores, Past Medical History Last Updated: 16-Jan-2020 10:17 by Manjit Chavira (RN) Normal [facility] BD CT ABDOMEN AND PELVIS W I V CONTRASTon 01-14-[address] ABDOMEN AND PELVIS W IV CONTRAST Patient Name: TAPAN DAILEY STUDY: CT abdomen and pelvis without contrast. INDICATION: epigastric/ right quadrant pain. elevated LFTs and lipase, Lie Flat: Yes. COMPARISON: None ACCESSION NUMBER(S): [id number] ORDERING CLINICIAN: HELENA RICHARD TECHNIQUE: Axial images of the abdomen and pelvis were obtained. Coronal and sagittal reformats were obtained. FINDINGS: Lung bases: Unremarkable Heart/mediastinum: Unremarkable Liver: Hepatic steatosis. Gallbladder/bile ducts: Unremarkable Pancreas: Parenchymal edema involving the head and uncinate process. Spleen: Unremarkable Adrenal glands: Unremarkable Kidneys/collecting system/urinary bladder: Distended urinary bladder. Pelvic structures: Unremarkable Peritoneum/retroperitone um/omentum: Inflammatory changes and minimal fluid in the pancreaticoduodenal groove. Lymph nodes: Unremarkable GI tract: Unremarkable Abdominal wall: Unremarkable Vascular: Unremarkable Musculoskeletal: Unremarkable IMPRESSION: 1. Acute interstitial edematous pancreatitis of the head and uncinate process. 2. Hepatic steatosis. 3. Distended urinary bladder. Electronically signed by: STEVEN RAMIREZ MD Normal [facility] CBC AND DIFFERENTIALon 11-21 -2020 % AUTOMATED IMMATURE GRAN 0.4 % Normal 0.0 - 0.9 [facility] Comment on above: Result Comment: [place] Granulocyte Count (IG) includes promyelocytes, myelocytes and metamyelocytes but does not include bands. Percent differential counts (%) should be interpreted in the context of the absolute cell counts (cells/L). Performed By: #### C BCDF #### [facility] [address] [place] [address] Basophils (Bld) [#/Vol] 0.07 10*3/uL Normal 0.00 - 0.1 0 [facility] Comment on above: Performed By: #### C BCDF #### [facility] [address] [place] [address] Basophils/100 WBC (Bld) 1.0 % Normal 0.0 - 2.0 [facility] Comment on above: Performed By: #### C BCDF #### [facility] [address] [place] [address] Eosinophils (Bld) [#/Vol] 0.04 10*3/uL Normal 0.00 - 0.70 [facility] Comment on above: Performed By: #### C BCDF #### [facility] [address] [place] [address] Eosinophils/100 WBC (Bld) 0.6 % Normal 0.0 - 6.0 [facility] Comment on above: Performed By: #### C BCDF #### [facility] [address] [place] [address] Erythrocyte distribution width (RBC) [Ratio] 12.3 % Normal 11.5 - 14.5 [facility] Comment on above: Performed By: #### C BCDF #### [facility] [address] [place] [address] Hematocrit (Bld) [Volume fraction] 49.0 % Normal 41.0 - 52.0 [facility] Comment on above: Performed By: #### C BCDF #### [facility] [address] [place] [address] Hemoglobin (Bld) [Mass/Vol] 17.6 g/dL High 13.5 - 17.5 [facility] Comment on above: Performed By: #### C BCDF #### [facility] [address] [place] [address] Lymphocytes (Bld) [#/Vol] 2.66 10*3/uL Normal 1.20 - 4.80 [facility] Comment on above: Performed By: #### C BCDF #### [facility] [address] [place] [address] Lymphocytes/100 WBC (Bld) 38.9 % Normal 13.0 - 44.0 [facility] Comment on above: Performed By: #### C BCDF #### [facility] [address] [place] [address] MCHC (RBC) [Mass/Vol] 35.9 g/dL Normal 32.0 - 36.0 [facility] Comment on above: Performed By: #### C BCDF #### [facility] [address] [place] [address] MCV (RBC) [Entitic vol] 96 fL Normal 80 - 100 [facility] Comment on above: Performed By: #### C BCDF #### [facility] [address] [place] [address] Monocytes (Bld) [#/Vol] 0.61 10*3/uL Normal 0.10 - 1.0 0 [facility] Comment on above: Performed By: #### C BCDF #### [facility] [address] [place] [address] Monocytes/100 WBC (Bld) 8.9 % Normal 2.0 - 10.0 [facility] Comment on above: Performed By: #### C BCDF #### [facility] [address] [place] [address] Neutrophils (Bld) [#/Vol] 3.43 10*3/uL Normal 1.20 - 7.70 [facility] Comment on above: Performed By: #### C BCDF #### [facility] [address] [place] [address] Neutrophils/100 WBC (Bld) 50.2 % Normal 40.0 - 80.0 [facility] Comment on above: Performed By: #### C BCDF #### [facility] [address] [place] [address] Nucleated RBC/100 WBC (Bld) [Ratio] 0.0 /100 WBC Normal 0.0-0.0 [facility] Comment on above: Performed By: #### C BCDF #### [facility] [address] [place] [address] Platelets (Bld) [#/Vol] 141 10*3/uL Low 150 - 450 [facility] Comment on above: Performed By: #### C BCDF #### [facility] [address] [place] [address] RBC (Bld) [#/Vol] 5.12 x10E12/L Normal 4.50 - 5.90 [facility] Comment on above: Performed By: #### C BCDF #### [facility] [address] [place] [address] WBC (Bld) [#/Vol] 6.8 10*3/uL Normal 4.4 - 11.3 [facility] Comment on above: Performed By: #### C BCDF #### [facility] [address] [place] [address] COMPREHENSIVE PANELon 2019 Albumin [Mass/Vol] 4.4 g/dL Normal 3.4 - 5.0 [facility] Comment on above: Performed By: #### V TA #### [facility] [address] [place], [place] [id number] ALP [Catalytic activity/Vol] 150 U/L High 33 - 120 [facility] Comment on above: Performed By: #### V TA #### [facility] [address] [place], [place] [id number] ALT [Catalytic activity/Vol] 126 U/L High 10 - 52 [facility] Comment on above: Result Comment: Hue ents treated with Sulfasalazine may generate falsely decreased results for ALT. Performed By: #### Vijay TA #### [facility] [address] [place], [place] [id number] Anion gap [Moles/Vol] 19 mmol/L Normal 10 - 20 [facility] Comment on above: Performed By: #### V TA #### [facility] [address] [place], [place] [id number] AST [Catalytic activity/Vol] 413 U/L High 9 - 39 [facility] Comment on above: Performed By: #### V TA #### [facility] [address] [place], [place] [id number] Bilirubin [Mass/Vol] 2.9 mg/dL High 0.0 - 1.2 [facility] Comment on above: Performed By: #### V TA #### [facility] [address] [place], [place] [id number] Calcium [Mass/Vol] 9.5 mg/dL Normal 8.6 - 10.6 [facility] Comment on above: Performed By: #### V TA #### [facility] [address] [place], [place] [id number] Chloride [Moles/Vol] 101 mmol/L Normal 98 - 107 [facility] Comment on above: Performed By: #### V TA #### [facility] [address] [place], [place] [id number] Creatinine [Mass/Vol] 0.61 mg/dL Normal 0.50 - 1.30 [facility] Comment on above: Performed By: #### V TA #### [facility] [address] [place], [place] [id number] GFR- AM. >60 Normal >60 [facility] Comment on above: Result Comment: CALC ULATIONS OF ESTIMATED GFR ARE PERFORMED USING THE MDRD STUDY EQUATION FOR THE IDMS-TRACEABLE CREATININE METHODS. CLIN CHEM 2007;53:766-72 Performed By: #### V TA #### [facility] [address] [place], [place] [id number] GFR-NON AM. >60 Normal >60 [facility] Comment on above: Performed By: #### Vijay SMITH #### [facility] [address] [place], [place] [id number] Glucose [Mass/Vol] 96 mg/dL Normal 74 - 99 [facility] Comment on above: Performed By: #### Vijay SMITH #### [address] [place], [place] [id number] HCO3 (Bld) [Moles/Vol] 26 mmol/L Normal 21 - 32 [facility] Comment on above: Performed By: #### Vijay SMITH #### [address]um[address] [place], [place] [id number] Potassium [Moles/Vol] 3.5 mmol/L Normal 3.5 - 5.3 [facility] Comment on above: Performed By: #### iVjay SMITH #### [address] [place], [place] [id number] Protein [Mass/Vol] 8.1 g/dL Normal 6.4 - 8.2 [facility] Comment on above: Performed By: #### Vijay SMITH #### [address] [place], [place] [id number] Sodium [Moles/Vol] 142 mmol/L Normal 136 - 145 [facility] Comment on above: Performed By: #### Vijay SMITH #### [address] [place], [place] [phone] Urea nitrogen [Mass/Vol] 6 mg/dL Normal 6 - 23 [facility] Comment on above: Performed By: #### Vijay SMITH #### [address] [place], [place] [id number] LIPASEon 01-14-2020 Lipase [Catalytic activity/Vol] 121 U/L High 9 - 82 [facility] Comment on above: Result Comment: Kalyn puncture immediately after or during the administration of Metamizole may lead to falsely low results. Testing should be performed immediately prior to Metamizole dosing. M-nvsqyl-w-benzoquinone imine (metabolite of Acetaminophen) will generate erroneously low results in samples for patients that have taken toxic doses of acetaminophen. Performed By: #### L IPAS #### [facility] [address] [place] [address] PT/INRon 01-14-2020 INR Coag (PPP) [Relative time] 1.0 {INR} Normal 0.9 - 1.1 [facility] Comment on above: Performed By: #### P TINR #### [facility] [address] [place] [address] PT Coag (PPP) [Time] 11.1 s Normal 10.1 - 13.3 [facility] Comment on above: Performed By: #### P TINR #### [facility] [address] [place] [address] Provider Note - ED v2on 12-25 Provider Note - ED v2 Provider Note - ED v2: Chart Review: ED NOTES ED NOTES: HPI: 39-year-old male with past medical history of hiatal hernia presenting to the emergency room for epigastric abdominal pain. Patient states that he has had chronic epigastric pain over the last year however it has worsened in severity over the last 3 days. Patient received upper EGD 6 months ago which revealed hiatal hernia, no signs of gastritis or PUD or upper GI bleed. Patient states that he has chronic nausea, he usually vomits once a day however the frequency of vomiting has increased over the last 3 days occurring 2-3 times a day, no blood in vomit. He has also had decreased bowel movements over the last 3 days, he is now down to 1 bowel movement a day, his bowel movements are nonbloody. Patient denies history of inflammatory bowel disease, liver cirrhosis, hep C, and hep B. Patient also denies history of any intra-abdominal surgeries, fever, chest pain, shortness of breath. Patient states he uses alcohol on a daily basis, usually consumes 2-3 drinks of hard liquor a day. ROS: A 10 point review of systems was performed and is otherwise negative except as noted in HPI PMH/PSH: Per HPI, EMR FH: Noncontributory SH: 2-3 drinks per day, 1 pack a day smoker, denies recreational drug use, he is currently taking Suboxone. Allergies: Per EMR Medications: Per EMR, listed below PE: Vital signs reviewed in nursing triage note, EMR flow sheets, and at patient's bedside. GEN: well appearing, no acute distress HEAD: atraumatic, normocephalic EYES: PEERL, EOMI, no scleral icterus CVS/CHEST: reg rate, nl rhythm, no murmurs PULM: CTA b/l no wheezes, crackles, or rhonchi GI: Positive bowel sounds, moderate tenderness to palpation in epigastric region, no masses. BACK: no CVA tenderness, no vertebral point tenderness EXT: no LE edema NEURO: Normal speech, symmetric facies, 5 out of 5 strength in all extremities, global sensation intact. SKIN: warm, dry, no rashes or ulcerations PSYCH: AAOx3 answers questions appropriately ED Course/Treatment/MDM: 39-year-old male with past medical history of hiatal hernia presenting to the emergency room for epigastric abdominal pain. Patient is hemodynamically stable upon arrival to the emergency room, his blood pressure is normotensive and afebrile.. Physical examination revealed epigastric tenderness upon palpation. DDX: Includes but not limited to biliary colic, choledocholithiasis, pancreatitis secondary to chronic alcohol use or gallstone, constipation, GERD, gastritis, PUD, acute intra-abdominal process, pneumonia. CBC, CMP, lipase, CT a/p, ultrasound ordered. On reevaluation patient still reports epigastric pain and nausea. Patient was given IV Zofran and 1 L of fluid, patient denied the need for pain medication. CBC within normal limits. CMP showed transaminitis. PT/INR within normal limits. Lipase elevated 121. Ultrasound concerning for pancreatitis. Stones and sludge in gallbladder but no signs of cholecystitis liver consistent with steatohepatitis or steatosis. CT A/P acute interstitial pancreatitis of the head and uncinate process, hepatic stenosis distended urinary bladder. Most likely etiology for epigastric pain is acute pancreatitis given laboratory results and findings on imaging. It is unclear whether patient has pancreatitis secondary to gallstones versus alcohol induced. Given that patient does have gallbladder stones with elevated liver enzymes we cannot rule out choledocholithiasis. ED team recommended admitting the patient with GI inpatient consult for pancreatitis treatment, however patient did not want to be admitted due to the fact that his children are home and he needs to be with them. Patient is hemodynamically stable and CT findings do not show any acute need for surgical emergency. We informed patient about the risks of leaving the hospital given his new prognosis of pancreatitis and patient is fully aware of the possible risks. Patient states he will come back to the hospital tomorrow for admission. He was informed to come back to the ED sooner if he develops fever, increased nausea, increase vomiting, and worsening abdominal pain. GI clinic information was put in discharge paperwork in case patient does not return to hospital. Patient given a prescription for Zofran to control vomiting. Results: *See section(s) entitled Lab Results, Diagnostic Imaging Results Review for entirety. Notable results listed below Clinical Impression: *See section entitled Diagnoses/Visit Problems Dispo Discharge home Disclaimer: This note was dictated by speech recognition. Minor errors in bail agent may be present. Please call if any questions. Helena Richard MD Emergency Medicine, PGY-1 HISTORY OF PRESENTING ILLNESS TAPAN is a 39 year old Male and was seen by me at 14-Jan-2020 14:24 for a chief complaint of abdominal pain . Other complaints include: Reports Hx of hiatal hernia(1). Triage Information: Most recent Vital Sign Value Date Temp (F): 98.2 01-14-2020 14:19 Temp (C): 36.8 01-14-2020 14:19 Heart Rate (beats/min): 94 01-14-2020 14:19 Respirations (breaths/min): 18 01-14-2020 14:19 SpO2 (%): 97 01-14-2020 14:19 BP Systolic (mm Hg): 127 01-14-2020 14:19 BP Diastolic (mm Hg): 87 01-14-2020 14:19 PAST MEDICAL HISTORY ATTESTATION: I have reviewed and confirmed nurse's/medic's notes for patient's medications, allergies, medical history, and surgical history ALLERGIES/INTOLERANCES: No Known Allergies HEALTH HISTORY: No documented data. OUTPATIENT MEDICATIONS: Home Medications Review Status for Reconciliation: Not Done Med Status: Patient Currently Takes Medications Drug Name: ondansetron 4 mg oral disintegrating strip Instructions: 1 each orally once a day Drug Name: ondansetron 4 mg oral disintegrating strip Instructions: 1 each orally once a day SIGNIFICANT EVENTS: Past Medical History Description:Hiatal Hernia RESULTS/VITAL SIGNS RESULTS: Recent Lab Results: I have reviewed these laboratory results: Complete Blood Count + Differential 14-Jan-2020 15:11:00 ResultValue White Blood Cell Count 6.8 Nucleated Erythrocyte Count 0.0 Red Blood Cell Count 5.12 HGB 17.6 H HCT 49.0 MCV 96 MCHC 35.9 PLT 141 L RDW-CV 12.3 Neutrophil % 50.2 Immature Granulocytes % 0.4 Lymphocyte % 38.9 Monocyte % 8.9 Eosinophil % 0.6 Basophil % 1.0 Neutrophil Count 3.43 Lymphocyte Count 2.66 Monocyte Count 0.61 Eosinophil Count 0.04 Basophil Count 0.07 PT + INR, Plasma 14-Jan-2020 15:11:00 ResultValue Prothrombin Time, Plasma 11.1 International Normalized Ratio, Plasma 1.0 Comprehensive Metabolic Panel 14-Jan-2020 15:11:00 ResultValue Glucose, Serum 96 NA 142 K 3.5 CL 101 Bicarbonate, Serum 26 Anion Gap, Serum 19 BUN 6 CREAT 0.61 GFR-Non >60 GFR- >60 Calcium, Serum 9.5 ALB 4.4 ALKP 150 H T Pro 8.1 T Bili 2.9 H Alanine Aminotransferase, Serum 126 H Aspartate Transaminase, Serum 413 H Lipase, Serum 14-Jan-2020 15:11:00 ResultValue Lipase, Serum 121 H Radiology Results: Impression: 1. Acute interstitial edematous pancreatitis of the head and uncinate process. 2. Hepatic steatosis. 3. Distended urinary bladder. CT Abdomen and Pelvis with IV Contrast [Jan 14 2020 7:55PM] Impression: Heterogeneous ill-defined appearance of the pancreatic parenchyma and hyperechogenicity of the peripancreatic fat likely reflecting inflammation in the setting of pancreatitis. Gallbladder sludge and small stones without additional evidence of acute cholecystitis. Hyperechoic mildly heterogeneous hepatic parenchyma consistent with hepatocellular disease such as steatosis/steatohepatiti s. Nonobstructing 0.3 cm calculus inthe lower pole of the left kidney. Ultrasound Abdomen Complete, Liver Gallbladder Pancreas Spleen [Jan 14 2020 7:09PM] VITAL SIGNS: T PRBP SpO2O2(LPM) %FiO2 Method 14-Jan-2020 18:56:[id number] 96 14-Jan-2020 16:04:[id number]/79 97 14-Jan-2020 14:19:[id number] 97 room air, no respiratory support CLINICAL IMPRESSION Diagnosis/Annotation: ED Dx Name:Pancreatitis Code:K85.90 Disposition: discharged ATTESTATION Attestation: I saw and evaluated the patient. I personally obtained the sinha and critical portions of the history and physical exam or was physically present for sinha and critical portions performed by the resident/fellow. I reviewed the resident/fellows documentation and discussed the patient with the resident/fellow. I agree with the resident/fellows medical decision making as documented in the resident/fellows note with the exception/addition of the following Comments/Additional Findings: This is a 39-year-old male with a history of opiate use disorder, currently on Suboxone who presents to the emergency department due to epigastric pain. Patient states he also has a history of hiatal hernia and has chronic abdominal pain however states that that is worsened over the last 3 days. He states typically he will vomit in the morning when he wakes up but will able to tolerate food and liquids afterwards. He states over the last 3 days has had increasing epigastric pain and has been unable to tolerate things by mouth. After being urged by his family he came to the emergency department for evaluation. On exam the patient is awake alert and hemodynamically stable and ambulating in the emergency department. He does have reproducible right upper quadrant epigastric tenderness to palpation. Concern for possible pancreatitis versus biliary pathology versus hepatic pathology. Labs remarkable for an elevated lipase as well as elevated liver function test. CT scan as well as right upper quadrant ultrasound was ordered for the patient. Right upper quadrant ultrasound was remarkable for gallbladder sludge and small stones without acute cholecystitis and CT scan was remarkable for interstitial edematous pancreatitis. It was recommended to the patient that he be admitted for further evaluation. Patient states that he has to go home and take care of his children as he only sees them once every 2 weeks. He understands the risks of going home including worsening abdominal pain, worsening status of his pancreatitis, infection, , loss of function. Patient was recommended that he return to the emergency department for any change or worsening of his symptoms. He states he understood that he was welcome to return at any time for further care. CRITICAL CARE TIME Is this a critically ill patient: no Electronic Signatures: Helena Richard (Resident)) (Signed 14-Jan-2020 23:06) Authored: ED Notes, HPI, PMH, Results/Vital Signs, Clinical Impression, Attestation, Chart Review, Scores Jennifer Frances () (Signed 15-Jan-2020 15:05) Authored: Attestation, Chart Review Co-Signer: ED Notes, PMH, Results/Vital Signs, Clinical Impression, Attestation, Chart Review, Scores Last Updated: 15-Jan-2020 15:05 by Jennifer Frances () References: 1. Data Referenced From Triage - ED 14-Jan-2020 14:19 Normal [facility] Risk Screen - Adult Emergenc yon 01-14-2020 Risk Screen - Adult Emergency Preferred Language: Preferred Language: Preferred Language for Discussing Health Care (patient/designee)Eli dotson Advanced Directives: Advance Directive/DNRno Family Violence Adult: Abuse Screen: Are you or have you been threatened or abused physically, emotionally, or sexually by anyoneno Learning Assessment (Patient): Learning Assessment (Patient): Patient is Able to be Assessed for Learningno Reason Unable to Assesspt in ed Learning Assessment (Other Learner): Learning Assessment (Other Learner): Other learner availableno Pressure Injury/TB/Substance: Pressure Injury: Pressure Injury Present on Admissionno Do you have a coughno Substance Use Current or Former Historynever: e-Cigarette/Vaping YES: Cigarette/Tobacco, Alcohol, Street Drugs Smoking Statuscurrent every day smoker Alcohol Useoccasionally Drug Usehistory of abuse Admission Risk Screen: Significant IndicatorsComplete CAGE: CAGE: [place] an [place] [place] no Electronic Signatures: Ara Ramirez (GREG) (Signed 14-Jan-2020 15:46) Authored: Preferred Language, Advanced Directives, Family Violence Adult, Learning Assessment (Patient), Learning Assessment (Other Learner), Pressure Injury/TB/Substance, Pressure Injury, CAGE Last Updated: 14-Jan-2020 15:46 by Ara Ramirez (GREG) Normal [facility] Triage - EDon 01-14-2020 Triage - ED Chart Review: ARRIVAL INFORMATION Mode of Arrival: private vehicle CHIEF COMPLAINT TAPAN DAILEY is a Male patient with a chief complaint of abdominal pain. Onset of the Complaint: 18-Nov-2020 Other Complaints: Reports Hx of hiatal hernia Triage Date/Time: 14-Jan-2020 14:19 Pain Rating (0-10): 7 = Severe Vital Signs: Temperature: 98.2F ( 36.8C) taken forehead Blood Pressure: 127/87 Mean: Heart Rate: 94 Respiratory Rate: 18 Pulse Oximetry: 97% on room air, no respiratory support. Height: 6 feet 1.00 inches. 185.4 CM Weight: 154.3 pounds. Calculated 70.0 kg. (stated) Calculated BMI (kg/m2): 20.364 Calculated BSA (m2) 1.90 [place] Coma Scale: Best Eye Response: (E4) spontaneous Best Motor Response: (M6) obeys commands Best Verbal Response: (V5) oriented [place] Score: 15 Cough lasting greater than 3 weeks: no Allergies: no Mask applied: yes Patient has homicidal thoughts: no ZOEY: 3 Risk Screens Suicide Risk Screen In the Past Month: Have you wished you were or wished you could go to sleep and not wake up no In the Past Month: Have you had any actual thoughts of killing yourself no In Your Lifetime: Have you ever done anything, started to do anything, or prepared to do anything to end your life no López Fall Scale Screening Has the patient fallen before (or is the patient in the ED as a result of a fall) has not had a fall Does the patient have an impaired gait does not have impaired gait Is the patient cognitively impaired not cognitively impaired Interventions: López Fall Interventions: LOW INTERVENTIONS: *patient oriented to surroundings and call system, * patient/family falls education completed and documented, *patients fall status communicated during bedside handoff, *whiteboard updated, *mode of toileting discussed with patient, *bed in low position with brakes locked, *call light in reach, * non-skid footwear TRAVEL HISTORY Travel History Coronavirus Screening: no exposure or symptoms PAIN Pain Scale Used: BHARATI Pain Rating (0-10): 7 = Severe Past Medical History: Past Medical History Reviewedyes Hiatal Hernia: Past Medical History, Active Electronic Signatures: Era Owusu) (Signed 14-Jan-2020 14:22) Authored: Quick Triage, Risk Screens, Pain, Chart Review, Scores, Past Medical History Last Updated: 14-Jan-2020 14:22 by Era Owusu (RN) Normal [facility] US ABD COMPLETEon 01-14-2020 US ABD COMPLETE Patient Name: TAPAN DAILEY STUDY: US ABD COMP; 01/14/2020 6:36 pm INDICATION: 39 y/o M with epigastric/ right quadrant pain. elevated LFTs and lipase. COMPARISON: None. ACCESSION NUMBER(S): [id number] ORDERING CLINICIAN: HELENA RICHARD TECHNIQUE: Multiple grayscale and color Doppler static and dynamic images of the abdomen were obtained. FINDINGS: LIVER: Craniocaudal length: 18.1 cm, within normal limits of size for age. Echogenicity: Increased. Echotexture: Mildly heterogeneous. Mass: Simple cyst measuring 0.6 cm. BILE DUCTS: Intrahepatic ducts: Non-dilated. Common bile duct diameter: 0.43 cm GALLBLADDER: Gallstones: Sludge and small stones are present. Gallbladder wall thickening: None. Pericholecystic fluid: None. Sonographic Matos's sign: Negative. PANCREAS: Hyperechogenicity in the peripancreatic fat and obscured pancreatic margins concerning for edema. SPLEEN: Craniocaudal length: 10 cm, within normal limits of size for age. RIGHT KIDNEY: Craniocaudal length: 12 cm, within normal limits of size for age. Hyperechoic focus in the lower pole with twinkle artifact and posterior shadowing (0.3 cm). No hydronephrosis. LEFT KIDNEY: Craniocaudal length: 11.1 cm, within normal limits of size for age. No hydronephrosis. ABDOMINAL AORTA AND IVC: Visualized portions are unremarkable. PERITONEAL FLUID: None. IMPRESSION: Heterogeneous ill-defined appearance of the pancreatic parenchyma and hyperechogenicity of the peripancreatic fat likely reflecting inflammation in the setting of pancreatitis. Gallbladder sludge and small stones without additional evidence of acute cholecystitis. Hyperechoic mildly heterogeneous hepatic parenchyma consistent with hepatocellular disease such as steatosis/steatohepatiti s. Nonobstructing 0.3 cm calculus in the lower pole of the left kidney. Electronically signed by: PAO PRABHAKAR MD Normal [facility] Vital Signs Date Time Vital Sign Value Performing Clinician Faci jovany 10-05-2024 18:08-0400 Body temperature 98.1 [degF] Dr. Luis Carnes MD Work Phone: 0(717)281-595764 [place] [address] 10-05-2024 18:08-0400 Diastolic blood pressure 84 mm[Hg] Dr. Luis Carnes MD Work Phone: 8(011)480-246264 [place] [address] 10-05-2024 18:08-0400 Heart rate 99 /min Dr. Luis Carnes MD Work Phone: 6(361)852-882964 [place] [address] 10-05-2024 18:08-0400 Respiratory rate 18 /min Dr. Luis Carnes MD Work Phone: 2(866)509-978364 [place] [address] 10-05-2024 18:08-0400 SaO2% (BldA) [Mass fraction] 99 % Dr. Luis Carnes MD Work Phone: 3(156)781-114464 [place] [address] 10-05-2024 18:08-0400 Systolic blood pressure 126 mm[Hg] Dr. Luis Carnes MD Work Phone: 3(273)752-270764 [place] [address] 10-05-2024 16:50-0400 Body height 185.[address] Luis Carnes MD Work Phone: 5(306)115-032064 [place] [address] 10-05-2024 16:50-0400 Body mass index (BMI) [Ratio] 22.8 kg/m2 Dr. Luis Carnes MD Work Phone: 7(321)205-709164 [place] [address] 10-05-2024 16:50-0400 Body weight 78.[address] Luis Carnes MD Work Phone: 5(754)783-449264 [place] [address] 06-11-2024 20:54-0400 Body temperature 97.5 [degF] Dr. Luis Carnes MD Work Phone: 0(805)365-931164 [place] [address] 06-11-2024 20:54-0400 Diastolic blood pressure 65 mm[Hg] Dr. Luis Carnes MD Work Phone: 1(407)188-869964 [place] [address] 06-11-2024 20:54-0400 Heart rate 79 /min Dr. Luis Carnes MD Work Phone: 9(881)206-446364 [place] [address] 06-11-2024 20:54-0400 Respiratory rate 16 /min Dr. Luis Carnes MD Work Phone: 6(576)693-754164 [place] [address] 06-11-2024 20:54-0400 SaO2% (BldA) [Mass fraction] 99 % Dr. Luis Carnes MD Work Phone: 5(687)762-607964 [place] [address] 06-11-2024 20:54-0400 Systolic blood pressure 134 mm[Hg] Dr. Luis Carnes MD Work Phone: 5(300)934-529164 [place] [address] 06-11-2024 18:27-0400 Body height 185.[address] Luis Carnes MD Work Phone: 2(557)824-554964 [place] [address] 06-11-2024 18:27-0400 Body mass index (BMI) [Ratio] 22.3 kg/m2 Dr. Luis Carnes MD Work Phone: 5(316)233-739564 [place] [address] 06-11-2024 18:27-0400 Body weight 76.[address] Luis Carnes MD Work Phone: 9(038)386-961964 [place] [address] 04-17-2024 20:25-0500 Body temperature 98 [degF] Dr. Luis Carnes MD Work Phone: 7(237)309-715264 [place] [address] 04-17-2024 20:25-0500 Diastolic blood pressure 89 mm[Hg] Dr. Luis Carnes MD Work Phone: 9(479)738-338664 [place] [address] 04-17-2024 20:25-0500 Heart rate 78 /min Dr. Luis Carnes MD Work Phone: 2(690)666-349964 [place] [address] 04-17-2024 20:25-0500 Respiratory rate 16 /min Dr. Luis Carnes MD Work Phone: 2(119)020-186764 [place] [address] 04-17-2024 20:25-0500 SaO2% (BldA) [Mass fraction] 99 % Dr. Luis Carnes MD Work Phone: 5(800)659-697864 [place] [address] 04-17-2024 20:25-0500 Systolic blood pressure 133 mm[Hg] Dr. Luis Carnes MD Work Phone: 9(493)118-813864 [place] [address] 04-17-2024 18:40-0500 Body mass index (BMI) [Ratio] 22.6 kg/m2 Dr. Luis Carnes MD Work Phone: 3(970)997-177164 [place] [address] 04-17-2024 18:40-0500 Body weight 77.[address] Luis Carnes MD Work Phone: 3(170)982-576264 [place] [address] 04-12-2024 16:45-0500 Body temperature 98.2 [degF] Dr. Luis Carnes MD Work Phone: 7(235)930-246764 [place] [address] 04-12-2024 16:45-0500 Diastolic blood pressure 76 mm[Hg] Dr. Luis Carnes MD Work Phone: 5(309)238-606564 [place] [address] 04-12-2024 16:45-0500 Heart rate 72 /min Dr. Luis Carnes MD Work Phone: 6(404)405-902964 [place] [address] 04-12-2024 16:45-0500 Respiratory rate 16 /min Dr. Luis Carnes MD Work Phone: 9(694)547-625364 [place] [address] 04-12-2024 16:45-0500 SaO2% (BldA) [Mass fraction] 100 % Dr. Luis Carnes MD Work Phone: 3(059)907-668964 [place] [address] 04-12-2024 16:45-0500 Systolic blood pressure 119 mm[Hg] Dr. Luis Carnes MD Work Phone: 8(008)892-865664 [place] [address] 04-12-2024 12:35-0500 Body mass index (BMI) [Ratio] 22.4 kg/m2 Dr. Luis Carnes MD Work Phone: 3(787)723-556064 [place] [address] 04-12-2024 12:35-0500 Body weight 77.[address] Luis Carnes MD Work Phone: 4(016)877-919164 [place] [address] 03-05-2024 08:41-0500 Body temperature 97.4 [degF] Dr. Luis Carnes MD Work Phone: 9(000)562-237464 [place] [address] 03-05-2024 08:41-0500 Diastolic blood pressure 76 mm[Hg] Dr. Luis Carnes MD Work Phone: 4(027)682-355164 [place] [address] 03-05-2024 08:41-0500 Heart rate 96 /min Dr. Luis Carnes MD Work Phone: 0(184)128-921864 [place] [address] 03-05-2024 08:41-0500 Respiratory rate 16 /min Dr. Luis Carnes MD Work Phone: 5(725)399-806264 [place] [address] 03-05-2024 08:41-0500 SaO2% (BldA) [Mass fraction] 94 % Dr. Luis Carnes MD Work Phone: 2(254)357-253064 [address] [place] [id number] 03-05-2024 08:41-0500 Systolic blood pressure 100 mm[Hg] Dr. Luis Carnes MD Work Phone: 4(185)[phone] [place] [address] 03-02-2024 16:33-0500 Body mass index (BMI) [Ratio] 21.2 kg/m2 Dr. Luis Carnes MD Work Phone: 4(210)[phone] [place] [address] 03-02-2024 16:33-0500 Body weight 72.[address] Luis Carnes MD Work Phone: 1(364)[phone] [place] [address] 01-02-2022 02:37-0500 Body temperature 98.2 [degF] Dr. Luis Carnes Work Phone: 5(150)[phone] [place] [address] Work Phone: 01-02-2022 02:37-0500 Diastolic blood pressure 67 mm[Hg] Dr. Luis Carnes Work Phone: [facility] Work Phone: 01-02-2022 02:37-0500 Heart rate 126 /min Dr. Luis Carnes Work Phone: [facility] Work Phone: 01-02-2022 02:37-0500 Respiratory rate 18 /min Dr. Luis Carnes Work Phone: [facility] Work Phone: 01-02-2022 02:37-0500 SaO2% (BldA) [Mass fraction] 95 % Dr. Luis Carnes Work Phone: [facility] Work Phone: 01-02-2022 02:37-0500 Systolic blood pressure 111 mm[Hg] Dr. Luis Carnes Work Phone: [facility] Work Phone: 01-02-2022 00:40-0500 Body height 185.[address] Luis Carnes Work Phone: [facility] Work Phone: 01-02-2022 00:40-0500 Body mass index (BMI) [Ratio] 21.4 kg/m2 Dr. Luis Carnes Work Phone: [facility] Work Phone: 01-02-2022 00:40-0500 Body weight 73.[address] Luis Carnes Work Phone: [facility] Work Phone: 12-03-2021 15:48-0400 Body mass index (BMI) [Ratio] 21.4 kg/m2 Dr. Luis Carnes Work Phone: [facility] Work Phone: 12-03-2021 15:48-0400 Body temperature 98.5 [degF] Dr. Luis Carnes Work Phone: [facility] Work Phone: 12-03-2021 15:48-0400 Body weight 73.[address] Luis Carnes Work Phone: [facility] Work Phone: 12-03-2021 15:48-0400 Diastolic blood pressure 77 mm[Hg] Dr. Luis Carnes Work Phone: [facility] Work Phone: 12-03-2021 15:48-0400 Heart rate 118 /min Dr. Luis Carnes Work Phone: [facility] Work Phone: 12-03-2021 15:48-0400 Respiratory rate 15 /min Dr. Luis Carnes Work Phone: [facility] Work Phone: 12-03-2021 15:48-0400 SaO2% (BldA) [Mass fraction] 96 % Dr. Luis Carnes Work Phone: [facility] Work Phone: 12-03-2021 15:48-0400 Systolic blood pressure 113 mm[Hg] Dr. Luis Carnes Work Phone: [facility] Work Phone: 11-22-2021 08:34-0400 Body temperature 97.8 [degF] Dr. Luis Carnes Work Phone: [facility] Work Phone: 11-22-2021 08:34-0400 Diastolic blood pressure 75 mm[Hg] Dr. Luis Carnes Work Phone: [facility] Work Phone: 11-22-2021 08:34-0400 Heart rate 109 /min Dr. Luis Carnes Work Phone: [facility] Work Phone: 11-22-2021 08:34-0400 Respiratory rate 16 /min Dr. Luis Carnes Work Phone: [facility] Work Phone: 11-22-2021 08:34-0400 SaO2% (BldA) [Mass fraction] 97 % Dr. Luis Carnes Work Phone: [facility] Work Phone: 11-22-2021 08:34-0400 Systolic blood pressure 102 mm[Hg] Dr. Luis Carnes Work Phone: [facility] Work Phone: 11-19-2021 21:52-0400 Body height 185.[address] Luis Carnes Work Phone: [facility] Work Phone: 11-19-2021 21:52-0400 Body mass index (BMI) [Ratio] 20.4 kg/m2 Dr. Luis Carnes Work Phone: [facility] Work Phone: 11-19-2021 21:52-0400 Body weight 70.[address] Luis Carnes Work Phone: [facility] Work Phone: 11-19-2021 21:21-0400 Body temperature 97.1 [degF] Dr. Luis Carnes Work Phone: [facility] Work Phone: 11-19-2021 21:21-0400 Diastolic blood pressure 79 mm[Hg] Dr. Luis Carnes Work Phone: [facility] Work Phone: 11-19-2021 21:21-0400 Heart rate 108 /min Dr. Luis Carnes Work Phone: [facility] Work Phone: 11-19-2021 21:21-0400 Respiratory rate 17 /min Dr. Luis Carnes Work Phone: [facility] Work Phone: 11-19-2021 21:21-0400 SaO2% (BldA) [Mass fraction] 100 % Dr. Luis Carnes Work Phone: [facility] Work Phone: 11-19-2021 21:21-0400 Systolic blood pressure 112 mm[Hg] Dr. Luis Carnes Work Phone: [facility] Work Phone: 11-19-2021 19:28-0400 Body height 185.[address] Luis Carnes Work Phone: [facility] Work Phone: 11-19-2021 19:28-0400 Body mass index (BMI) [Ratio] 20.4 kg/m2 Dr. Luis Carnes Work Phone: [facility] Work Phone: 11-19-2021 19:28-0400 Body weight 70.[address] Luis Carnes Work Phone: [facility] Work Phone: 11-15-2021 19:48-0400 Diastolic blood pressure 79 mm[Hg] Dr. Luis Carnes Work Phone: [facility] Work Phone: 11-15-2021 19:48-0400 Heart rate 112 /min Dr. Luis Carnes Work Phone: [facility] Work Phone: 11-15-2021 19:48-0400 Respiratory rate 18 /min Dr. Luis Carnes Work Phone: [facility] Work Phone: 11-15-2021 19:48-0400 SaO2% (BldA) [Mass fraction] 94 % Dr. Luis Carnes Work Phone: [facility] Work Phone: 11-15-2021 19:48-0400 Systolic blood pressure 118 mm[Hg] Dr. Luis Carnes Work Phone: [facility] Work Phone: 11-15-2021 15:54-0400 Body mass index (BMI) [Ratio] 20.4 kg/m2 Dr. Luis Carnes Work Phone: [facility] Work Phone: 11-15-2021 15:54-0400 Body temperature 98 [degF] Dr. Luis Carnes Work Phone: [facility] Work Phone: 11-15-2021 15:54-0400 Body weight 70.[address] Luis Carnes Work Phone: [facility] Work Phone: 11-15-2021 14:28-0400 Body height 185.4 cm Luis Carnes MD Work Phone: [facility] 11-15-2021 14:28-0400 Body weight 69.76 kg Luis Carnes MD Work Phone: [facility] 11-15-2021 14:28-0400 Diastolic blood pressure 80 mm[Hg] Luis Carnes MD Work Phone: [facility] 11-15-2021 14:28-0400 Heart rate 130 /min Luis Carnes MD Work Phone: [facility] 11-15-2021 14:28-0400 SaO2% (BldA) [Mass fraction] 99 % Luis Carnes MD Work Phone: [facility] 11-15-2021 14:28-0400 Systolic blood pressure 112 mm[Hg] Luis Carnes MD Work Phone: [facility] 11-12-2021 00:36-0400 Heart rate 113 /min Dr. Luis Carnes Work Phone: [facility] Work Phone: 11-11-2021 19:11-0400 Body height 185.[address] Luis Carnes Work Phone: [facility] Work Phone: 11-11-2021 19:11-0400 Body mass index (BMI) [Ratio] 21.7 kg/m2 Dr. Luis Carnes Work Phone: [facility] Work Phone: 11-11-2021 19:11-0400 Body temperature 98.4 [degF] Dr. Luis Carnes Work Phone: [facility] Work Phone: 11-11-2021 19:11-0400 Body weight 74.[address] Luis Carnes Work Phone: [facility] Work Phone: 11-11-2021 19:11-0400 Diastolic blood pressure 86 mm[Hg] Dr. Luis Carnes Work Phone: [facility] Work Phone: 11-11-2021 19:11-0400 Respiratory rate 18 /min Dr. Luis Carnes Work Phone: [facility] Work Phone: 11-11-2021 19:11-0400 SaO2% (BldA) [Mass fraction] 98 % Dr. Luis Carnes Work Phone: [facility] Work Phone: 11-11-2021 19:11-0400 Systolic blood pressure 108 mm[Hg] Dr. Luis Carnes Work Phone: [facility] Work Phone: 09-16-2021 13:31-0400 Body temperature 98.6 [degF] Maico Paredes MD Work Phone: [facility] 09-16-2021 13:31-0400 Body weight 70.67 kg Maico Paredes MD Work Phone: [facility] 09-16-2021 13:31-0400 Diastolic blood pressure 84 mm[Hg] Maico Paredes MD Work Phone: [facility] 09-16-2021 13:31-0400 Heart rate 120 /min Maico Paredes MD Work Phone: [facility] 09-16-2021 13:31-0400 Respiratory rate 21 /min Maico Paredes MD Work Phone: [facility] 09-16-2021 13:31-0400 SaO2% (BldA) [Mass fraction] 96 % Maico Paredes MD Work Phone: [facility] 09-16-2021 13:31-0400 Systolic blood pressure 122 mm[Hg] Maico Paredes MD Work Phone: [facility] 09-03-2021 15:34-0400 Body mass index (BMI) [Ratio] 20 kg/m2 Dr. Luis Carnes Work Phone: [facility] Work Phone: 09-03-2021 15:34-0400 Body temperature 98.9 [degF] Dr. Luis Carnes Work Phone: [facility] Work Phone: 09-03-2021 15:34-0400 Body weight [address] Luis Carnes Work Phone: [facility] Work Phone: 09-03-2021 15:34-0400 Diastolic blood pressure 74 mm[Hg] Dr. Luis Carnes Work Phone: [facility] Work Phone: 09-03-2021 15:34-0400 Heart rate 102 /min Dr. Luis Carnes Work Phone: [facility] Work Phone: 09-03-2021 15:34-0400 Respiratory rate 14 /min Dr. Luis Carnes Work Phone: [facility] Work Phone: 09-03-2021 15:34-0400 SaO2% (BldA) [Mass fraction] 96 % Dr. Luis Carnes Work Phone: [facility] Work Phone: 09-03-2021 15:34-0400 Systolic blood pressure 108 mm[Hg] Dr. Luis Carnes Work Phone: [facility] Work Phone: 08-14-2021 15:23-0400 Diastolic blood pressure 86 mm[Hg] Dr. Luis Carnes Work Phone: [facility] Work Phone: 08-14-2021 15:23-0400 Heart rate 88 /min Dr. Luis Carnes Work Phone: [facility] Work Phone: 08-14-2021 15:23-0400 Respiratory rate 18 /min Dr. Luis Carnes Work Phone: [facility] Work Phone: 08-14-2021 15:23-0400 Systolic blood pressure 123 mm[Hg] Dr. Luis Carnes Work Phone: [facility] Work Phone: 08-14-2021 10:06-0400 Body height 185.[address] Luis Carnes Work Phone: [facility] Work Phone: 08-14-2021 10:06-0400 Body mass index (BMI) [Ratio] 21.7 kg/m2 Dr. Luis Carnes Work Phone: [facility] Work Phone: 08-14-2021 10:06-0400 Body temperature 97.7 [degF] Dr. Luis Carnes Work Phone: [facility] Work Phone: 08-14-2021 10:06-0400 Body weight 74.[address] Luis Carnes Work Phone: [facility] Work Phone: 08-14-2021 10:06-0400 SaO2% (BldA) [Mass fraction] 98 % Dr. Luis Carnes Work Phone: [facility] Work Phone: 05-21-2021 08:25-0400 Body temperature 97.7 [degF] Dr. Luis Carnes Work Phone: [facility] Work Phone: 05-21-2021 08:25-0400 Diastolic blood pressure 63 mm[Hg] Dr. Luis Carnes Work Phone: [facility] Work Phone: 05-21-2021 08:25-0400 Heart rate 91 /min Dr. Luis Carnes Work Phone: [facility] Work Phone: 05-21-2021 08:25-0400 Respiratory rate 16 /min Dr. Luis Carnes Work Phone: [facility] Work Phone: 05-21-2021 08:25-0400 SaO2% (BldA) [Mass fraction] 94 % Dr. Luis Carnes Work Phone: [facility] Work Phone: 05-21-2021 08:25-0400 Systolic blood pressure 89 mm[Hg] Dr. Luis Carnes Work Phone: [facility] Work Phone: 05-21-2021 03:33-0400 Body temperature 98.1 [degF] Dr. Luis Carnes Work Phone: [facility] Work Phone: 05-21-2021 03:33-0400 Diastolic blood pressure 64 mm[Hg] Dr. Luis Carnes Work Phone: [facility] Work Phone: 05-21-2021 03:33-0400 Heart rate 93 /min Dr. Luis Carnes Work Phone: [facility] Work Phone: 05-21-2021 03:33-0400 Respiratory rate 18 /min Dr. Luis Carnes Work Phone: [facility] Work Phone: 05-21-2021 03:33-0400 SaO2% (BldA) [Mass fraction] 95 % Dr. Luis Carnes Work Phone: [facility] Work Phone: 05-21-2021 03:33-0400 Systolic blood pressure 93 mm[Hg] Dr. Luis Carnes Work Phone: [facility] Work Phone: 05-16-2021 11:57-0400 Body height 185.[address] Luis Carnes Work Phone: [facility] Work Phone: 05-16-2021 11:57-0400 Body weight 74.[address] Luis Carnes Work Phone: [facility] Work Phone: 05-16-2021 04:37-0400 Inhaled oxygen flow rate 2 L/min Dr. Luis Carnes Work Phone: [facility] Work Phone: 05-16-2021 00:57-0400 Body mass index (BMI) [Ratio] 21.7 kg/m2 Dr. Luis Carnes Work Phone: [facility] Work Phone: 04-30-2021 07:43-0500 Body temperature 98.6 [degF] Dr. Luis Carnes Work Phone: [facility] Work Phone: 04-30-2021 07:43-0500 Diastolic blood pressure 74 mm[Hg] Dr. Luis Carnes Work Phone: [facility] Work Phone: 04-30-2021 07:43-0500 Heart rate 95 /min Dr. Luis Carnes Work Phone: [facility] Work Phone: 04-30-2021 07:43-0500 Respiratory rate 14 /min Dr. Luis Carnes Work Phone: [facility] Work Phone: 04-30-2021 07:43-0500 SaO2% (BldA) [Mass fraction] 95 % Dr. Luis Carnes Work Phone: [facility] Work Phone: 04-30-2021 07:43-0500 Systolic blood pressure 94 mm[Hg] Dr. Luis Carnes Work Phone: [facility] Work Phone: 04-30-2021 06:43-0500 Body temperature 98.6 [degF] Dr. Luis Carnes Work Phone: [facility] Work Phone: 04-30-2021 06:43-0500 Diastolic blood pressure 74 mm[Hg] Dr. Luis Carnes Work Phone: [facility] Work Phone: 03-08-2022 06:43-0500 Heart rate 95 /min Dr. Luis Carnes Work Phone: [facility] Work Phone: 04-30-2021 06:43-0500 Respiratory rate 14 /min Dr. Luis Carnes Work Phone: [facility] Work Phone: 04-30-2021 06:43-0500 SaO2% (BldA) [Mass fraction] 95 % Dr. Luis Carnes Work Phone: [facility] Work Phone: 04-30-2021 06:43-0500 Systolic blood pressure 94 mm[Hg] Dr. Luis Carnes Work Phone: [facility] Work Phone: 04-26-2021 19:53-0500 Body mass index (BMI) [Ratio] 21.8 kg/m2 Dr. Luis Carnes Work Phone: [facility] Work Phone: 04-26-2021 19:53-0500 Body weight 73.[address] Luis Carnes Work Phone: [facility] Work Phone: 04-26-2021 18:53-0500 Body mass index (BMI) [Ratio] 21.8 kg/m2 Dr. Luis Carnes Work Phone: [facility] Work Phone: 04-26-2021 18:53-0500 Body weight 73.[address] Luis Carnes Work Phone: [facility] Work Phone: 04-08-2021 17:11-0500 Diastolic blood pressure 84 mm[Hg] Dr. Luis Carnes Work Phone: [facility] Work Phone: 04-08-2021 17:11-0500 Heart rate 95 /min Dr. Luis Carnes Work Phone: [facility] Work Phone: 04-08-2021 17:11-0500 Respiratory rate 16 /min Dr. Luis Carnes Work Phone: [facility] Work Phone: 04-08-2021 17:11-0500 SaO2% (BldA) [Mass fraction] 99 % Dr. Luis Carnes Work Phone: [facility] Work Phone: 04-08-2021 17:11-0500 Systolic blood pressure 127 mm[Hg] Dr. Luis Carnes Work Phone: [facility] Work Phone: 04-08-2021 12:42-0500 Body mass index (BMI) [Ratio] 19.8 kg/m2 Dr. Luis Carnes Work Phone: [facility] Work Phone: 04-08-2021 12:42-0500 Body temperature 96.9 [degF] Dr. Luis Carnes Work Phone: [facility] Work Phone: 04-08-2021 12:42-0500 Body weight 68.[address] Luis Carnes Work Phone: [facility] Work Phone: Encounters Encounter Date Encounter Type Care Provider Facility Start: 10-05-2024 Evaluation and management of inpatient Dr. Mecca Vargas MD -[facility] Work Phone: Start: 10-05-2024 Non-patient / Non-visit Dr. Hansa Vargas MD -[facility] Work Phone: Start: 06-11-2024 End: 06-11-2024 Emergency department patient visit Dr. Luis Carnes MD Work Phone: -Emergency Department Work Phone: Start: 04-17-2024 End: 04-17-2024 Emergency department patient visit Dr. Rajinder Mensah DO -Emergency Department Work Phone: Start: 04-12-2024 End: 04-12-2024 Emergency department patient visit Dr. Kain De Jesus MD -Emergency Department Work Phone: Start: 03-05-2024 Non-patient / Non-visit Dr. Leona MILLER -[facility] Work Phone: Start: 03-04-2024 Non-patient / Non-visit Dr. Leona MILLER -[facility] Work Phone: Start: 03-03-2024 Non-patient / Non-visit Dr. Leona MILLER -[facility] Work Phone: Start: 03-02-2024 ambulatory [facility] [place] [facility] Start: 03-02-2024 End: 03-05-2024 Evaluation and management of inpatient Dr. Tej Machuca MD -[facility] 3 Work Phone: Start: 02-19-2023 End: 02-19-2023 ambulatory LUIS CARNES Facility:[facility] Start: 01-02-2022 Non-patient / Non-visit Dr. Afsaneh Carnes Work Phone: [facility] Start: 01-02-2022 Evaluation and management of inpatient Dr. Luis Carnes Work Phone: [facility]Int[facility] Care Unit Start: 12-03-2021 End: 12-03-[address] Luis Carnes Work Phone: [facility] Start: 12-03-[address] Roosevelt Carnes Work Phone: [facility] Start: 11-22-2021 Non-patient / Non-visit Dr. Afsaneh Carnes Work Phone: [facility] Start: 11-21-2021 Non-patient / Non-visit Dr. Afsaneh Carnes Work Phone: [facility] Start: 11-20-2021 Non-patient / Non-visit Dr. Afsaneh Carnes Work Phone: [facility] Start: 11-19-2021 Non-patient / Non-visit Dr. Afsaneh Carnes Work Phone: [facility] Start: 11-19-2021 End: 11-22-2021 Evaluation and management [facility] Start: 11-15-2021 End: 11-15-2021 Emergency department patient [facility] Start: 11-15-2021 End: 11-15-2021 Patient encounter procedure Luis Carnes MD Work Phone: [facility] Comment on above: Chest pain, unspecif ied type (Primary Dx); Other acute pulmonary embolism without acute cor pulmonale (HCC); ETOHism (HCC); SOB (shortness of breath); Elevated liver enzymes; Chronic pain syndrome Start: 11-12-2021 Telephone encounter Luis Carnes MD Work Phone: [facility] Comment on above: Patient Update Start: 11-11-2021 End: 11-12-2021 Emergency department patient [facility] Dr. [facility] Start: 09-18-2021 End: 09-18-2021 ambulatory Lusi Carnes MD Work Phone: [facility] Comment on above: COVID-19 (Primary Dx ); ETOHism (HCC); Other acute pulmonary embolism without acute cor pulmonale (HCC) Start: 09-18-2021 End: 09-18-2021 Telemedicine consultation with patient Luis Carnes MD Work Phone: [facility] Start: 09-17-2021 ambulatory Selene Wharton RN NURSE O N CALL Comment on above: Information Opened In Error Start: 09-17-2021 Telephone encounter Luis Carnes MD Work Phone: [facility] Comment on above: Covid19 Concern Start: 09-16-2021 End: 09-16-2021 Patient encounter procedure Maico Paredes MD Work Phone: [facility] Comment on above: Acute viral syndrome (Primary Dx) Start: 09-03-2021 End: 09-03-[address] Luis Carnes Work Phone: [facility] Start: 08-21-2021 End: 08-21-[address] Luis Carnes Work Phone: [facility] Start: 08-14-2021 Non-patient / Non-visit Dr. Afsaneh Carnes Work Phone: [facility] Start: 08-14-2021 End: 08-14-2021 Emergency department patient visit Dr. Luis Carnes Work Phone: [facility] Start: 07-26-2021 End: 07-26-[address] Luis Carnes Work Phone: [facility] Start: 05-21-2021 Non-patient / Non-visit Dr. Afsaneh Carnes Work Phone: [facility] Start: 05-20-2021 Non-patient / Non-visit Dr. Afsaneh Carnes Work Phone: [facility] Start: 05-19-2021 Non-patient / Non-visit Dr. Afsaneh Carnes Work Phone: [facility] Start: 05-18-2021 Non-patient / Non-visit Dr. Afsaneh Carnes Work Phone: [facility] Start: 05-17-2021 Non-patient / Non-visit Dr. Afsaneh Carnes Work Phone: [facility] Start: 05-16-2021 Non-patient / Non-visit Dr. Afsaneh Carnes Work Phone: [facility] Start: 05-15-2021 Non-patient / Non-visit Dr. Afsaneh Carnes Work Phone: [facility] Start: 05-15-2021 End: 05-21-2021 Evaluation and management of inpatient Dr. Luis Carnes Work Phone: [facility] 3 Start: 04-29-2021 Non-patient / Non-visit Dr. Afsaneh Carnes Work Phone: [facility] Start: 2021 Non-patient / Non-visit Dr. Afsaneh Carnes Work Phone: [facility] Start: 04-27-2021 Non-patient / Non-visit Dr. Afsaneh Carnes Work Phone: [facility] Start: 04-26-2021 Non-patient / Non-visit Dr. Afsaneh Carnes Work Phone: [facility] Start: 04-26-2021 End: 04-30-2021 Evaluation and management of inpatient Dr. Luis Carnes Work Phone: [facility] 3 Start: 04-08-2021 End: 04-08-2021 Emergency department patient [facility]. [facility] Date Procedure Procedure Detail Performing Clinician Start: 10-05-[address] Roosevelt Carnes MD Work Phone: Start: 06-11-2024 X-ray of knee, four or more views Dr[address] Afsaneh Carnes MD Work Phone: Start: 06-11-2024 CT of chest without contrast Dr. Luis Carnes MD Work Phone: Start: 06-11-2024 CT of head without contrast Dr. Luis Carnes MD Work Phone: Start: 04-17-2024 X-ray of chest, PA and lateral views Dr. Luis Carnes MD Work Phone: Start: 04-12-2024 CT angiography of chest with contrast Dr. Luis Carnes MD Work Phone: Start: 04-12-2024 Plain chest X-ray Dr. Luis Carnes MD Work Phone: Start: 01-02-2022 CT of abdomen and pelvis without contrast Dr. Luis Carnes Work Phone: Start: 11-21-2021 CT of abdomen and pelvis without contrast Dr. Luis Carnes Work Phone: Start: 11-11-2021 Plain chest X-ray Dr. Luis Carnes Work Phone: Start: 08-21-[address] Luis Carnes Work Phone: Start: 08-21-[address] Luis salomon Work Phone: Start: 08-21-[address] Luis Carnes Work Phone: Start: 08-14-2021 CT angiography of chest with contrast Dr. Luis Carnes Work Phone: Start: 08-14-2021 Plain X-ray of tibia and fibula Dr. Jnony Carnes Work Phone: Start: 08-14-[address] Luis Carnes Work Phone: Start: 04-26-2021 Computed tomography of abdomen and pelvis with contrast Dr. Luis Carnes Work Phone: Start: 04-08-2021 Computed tomography of abdomen and pelvis with intravenous contrast Dr. Luis Carnes Work Phone: Plan of Treatment Date Care Activity Detail Author Start: 10-06-2024 Prothrombin time [facility] [facility] Start: 10-05-2024 Admission procedure [place] [facility] Start: 10-05-2024 Verification routine Wo te [facility] Start: 10-05-2024 Hospital admission, emergency, from emergency room, medical nature [facility] Start: 10-05-2024 [facility] Start: 06-11-2024 [facility] Start: 04-17-2024 [facility] Start: 04-17-2024 [facility] Start: 04-12-2024 [facility] Start: 04-12-2024 [facility] Start: 03-05-2024 Patient discharge [facility] Start: 03-02-2024 Following clinical pathway protocol [facility] Start: 03-02-2024 Assessment of risk o f venous thromboembolism [facility] Start: 03-02-2024 Inhalation therapy procedure [facility] Start: 03-02-2024 Introduction of urin xavier catheter [facility] Start: 03-02-2024 Notification of physician [facility] Start: 03-02-2024 Provision of activit y privileges [facility] Start: 03-02-2024 Referral to service [facility] Start: 03-02-2024 Vital signs measurements [facility] Start: 03-02-2024 [facility] Start: 03-02-2024 Admission procedure [facility] Start: 01-02-2022 Admission procedure [facility] Work Phone: Start: 01-02-2022 Consultation [facility] Work Phone: Start: 11-22-2021 Patient discharge [facility] Work Phone: Start: 11-19-2021 Following clinical pathway protocol [facility] Work Phone: Start: 11-19-2021 Assessment of risk o f venous thromboembolism [facility] Work Phone: Start: 11-19-2021 Insertion of cathete r into peripheral vein [facility] Work Phone: Start: 11-19-2021 Oxygen therapy [facility] Work Phone: Start: 11-19-2021 Providing care accor ding to standard [facility] Work Phone: Start: 11-19-2021 Referral to service [facility] Work Phone: Start: 11-19-2021 Tobacco use cessatio n education [facility] Work Phone: Start: 11-19-2021 [facility] Work Phone: Start: 11-19-2021 Verification routine [facility] Work Phone: Start: 11-19-2021 Admission procedure [facility] Work Phone: Start: 11-19-2021 [facility] Work Phone: Start: 11-11-2021 [facility] Work Phone: Start: 10-24-2021 Influenza vaccination INFLUENZA (#1) [facility] Start: 09-16-2021 End: 09-30-2021 SARS-CoV-2 (COVID-19) RNA [Presence] in Respiratory specimen by ULI with probe detection 2019 CORONAVIRUS Microbiology Routine Acute viral syndrome Expected: 09/16/2021, Expires: 09/30/2021 [facility] Work Phone: Comment on above: Expected: 09/16/2021 , Expires: 09/30/2021 Start: 07-26-2021 Acute hepatitis 2000 panel - Serum [facility] Work Phone: Start: 07-26-2021 [id number]. tumor marker [Units/volume] in Serum or Plasma [facility] Work Phone: Start: 07-26-2021 Angiotensin converti ng enzyme [Enzymatic activity/volume] in Serum or Plasma [facility] Work Phone: Start: 07-26-2021 Ceruloplasmin [Mass/volume] in Serum or Plasma [facility] Work Phone: Start: 07-26-2021 Copper [Moles/volume ] in Serum or Plasma [facility] Work Phone: Start: 07-26-2021 Haptoglobin [Mass/vo lume] in Serum or Plasma [facility] Work Phone: Start: 07-26-2021 Hepatitis B virus genotype [Identifier] in Serum or Plasma by ULI with probe detection [facility] Work Phone: Start: 07-26-2021 Hepatitis C virus RN A assay [facility] Work Phone: Start: 07-26-2021 Smooth muscle Ab [Presence] in Serum [facility] Work Phone: Start: 07-26-2021 [facility] Work Phone: Start: 05-30-2021 LIPID SCREEN LIPID SCREEN [facility] Start: 05-21-2021 Patient discharge [facility] Work Phone: Start: 05-21-2021 Patient discharge [facility] Work Phone: Start: 05-16-2021 Following clinical pathway protocol [facility] Work Phone: Start: 05-16-2021 Assessment of risk o f venous thromboembolism [facility] Work Phone: Start: 05-16-2021 Notification of physician [facility] Work Phone: Start: 05-16-2021 Vital signs measurements [facility] Work Phone: Start: 05-16-2021 [facility] Work Phone: Start: 05-16-2021 Patient referral to dietitian [facility] Work Phone: Start: 05-15-2021 Admission procedure [facility] Work Phone: Start: 04-30-2021 Patient discharge [facility] Work Phone: Start: 04-26-2021 [facility] Work Phone: Start: 04-26-2021 Assessment of risk o f venous thromboembolism [facility] Work Phone: Start: 04-26-2021 Notification of physician [facility] Work Phone: Start: 04-26-2021 Vital signs measurements [facility] Work Phone: Start: 04-26-2021 [facility] Work Phone: Start: 04-26-2021 Following clinical pathway protocol [facility] Work Phone: Start: 04-26-2021 Admission procedure [facility] Work Phone: Start: 04-29-1999 Urine microalbumin profile DTAP,TDAP,TD (1 - Tdap) [facility] Start: 1998 HIV SCREENING HIV SCREENING [facility] Start: 1992 Adult depression screening assessment DEPRESSION SCREENING [facility] Start: 1986 PNEUMOCOCCAL (1 - PCV) PNEUMOCOCCAL (1 - PCV) [facility] Start: 1980 COVID-19 VACCINE (#1) COVID-19 VACCI NE (#1) [facility] Start: 1980 HEPATITIS B (1 of 3 - 3-dose series) HEPATITIS B (1 of 3 - 3-dose series) [facility] Amphetamines [Presen ce] in Urine by Screen method >1000 ng/mL [facility] Benzodiazepine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 398-464412-28-2023 NoteHNO ID: [id number] Author: Asif Ordaz APRN.PRIMARY TEACHER Service: ? Author Type: Nurse Practitioner Type: Progress Notes Filed: 02/19/2023 7:02 PM Note Text: Subjective HPI Nontoxic-appearing appearing male presents urgent care chief complaint flulike symptoms. Duration of symptoms 2 days. Associated symptoms nasal congestion fever body aches chills cough headache sore throat. Does have some eye redness and drainage. This started 3 days ago. Has not used any OTC medications. Has been using warm compresses. Feels like eye swelling was worse yesterday than today. Eye was matted shut upon arising. Denies any high fevers productive cough chest pain shortness of breath pleuritic pain hemoptysis nausea vomiting abdominal pain eye trauma flashlight floaters visual changes contact lens use. Past medical history prescription medication use allergies reviewed. .Patient presents with: Cough: Congestion, fever, swelling in Right eye redness and itching x 2 days PAST MEDICAL HISTORY Diagnosis Date Arthritis Chronic pain syndrome Depression Gallstones Hiatal hernia Other, mixed, or unspecified nondependent drug abuse, continuous abuse with both prescription and street obtained narcotics SOB (shortness of breath) PAST SURGICAL HISTORY Procedure Laterality Date CHOLECYSTECTOMY 04/11/2020 lap EGD 06/30/2019 2 cm hiatal hernia, erythema in stomach and duodenum EXTRACTION ERUPTED TOOTH/EXR age 18 FOOT SURGERY HX Left 2019 X2 screw in left foot LAST ONE IN NOV 2019 INGUINAL HERNIA REPAIR HX Left 1993 PAST SURGICAL HISTORY OF 2011 X2 cervical disc disease LAST ONE IN 2011 PAST SURGICAL HISTORY OF Left 2006 THUMB SURGERY X3 LAST ONE IN 2006 WRIST SURGERY HX Left 05/31/06 (year?) X2 wrist (L), Dr. Ruiz -- cyst and calcium build-up, tendon repaired LAST ONE IN 2006 ALLERGIES Naproxen MEDICATIONS omeprazole (PRILOSEC) 40 mg capsule Take 40 mg by mouth once daily. promethazine (PHENERGAN) 25 mg tablet Take 25 mg by mouth every 6 hours as needed. (Patient not taking: Reported on 02/19/2023) FAMILY HISTORY Problem Relation Age of Onset Hypertension Father Coronary Artery Disease Other none Diabetes Paternal Grandfather Colon Cancer Other none Prostate Cancer Other none Social History Tobacco Use Smoking status: Every Day Packs/day: 1.00 Years: 8.00 Additional pack years: 0.00 Total pack years: 8.00 Types: Cigarettes Smokeless tobacco: Former Vaping Use Vaping Use: Never used Substance Use Topics Alcohol use: Yes Alcohol/week: 2.0 standard drinks of alcohol Types: 2 Cans of Beer (12oz) per week Drug use: Not Currently Comment: none since 2012 BP 97/63 Pulse 113 Temp 37.2 ?C (99 ?F) Resp 18 Wt 74.8 kg (165 lb) SpO2 96% BMI 21.77 kg/m? Hr 93 Review of Systems Constitutional: Positive for chills, fever and malaise/fatigue. HENT: Positive for congestion and sore throat. Negative for ear discharge, ear pain and sinus pain. Eyes: Positive for discharge and redness. Negative for blurred vision and pain. Respiratory: Positive for cough. Negative for hemoptysis, sputum production, shortness of breath, wheezing and stridor. Cardiovascular: Negative for chest pain. Gastrointestinal: Negative for abdominal pain, diarrhea, nausea and vomiting. Musculoskeletal: Positive for myalgias. Skin: Negative for itching and rash. Neurological: Positive for headaches. Negative for dizziness. Objective Physical Exam Constitutional: General: He is not in acute distress. Appearance: He is not diaphoretic. HENT: Head: Normocephalic. Jaw: No trismus, tenderness, swelling or pain on movement. Nose: Congestion present. Mouth/Throat: Mouth: Mucous membranes are moist. Pharynx: Oropharynx is clear. Uvula midline. No pharyngeal swelling, oropharyngeal exudate, posterior oropharyngeal erythema or uvula swelling. Eyes: General: Lids are normal. Lids are everted, no foreign bodies appreciated. Vision grossly intact. Right eye: Discharge present. No foreign body or hordeolum. Left eye: No foreign body, discharge or hordeolum. Conjunctiva/sclera: Right eye: Right conjunctiva is injected. Exudate present. No chemosis or hemorrhage. Left eye: Left conjunctiva is not injected. No chemosis, exudate or hemorrhage. Pupils: Pupils are equal, round, and reactive to light. Comments: Slight hue of redness underneath right eye. No edema. No evidence of orbital or periorbital cellulitis. Cardiovascular: Rate and Rhythm: Normal rate and regular rhythm. Heart sounds: Normal heart sounds. Pulmonary: Effort: Pulmonary effort is normal. No tachypnea, accessory muscle usage or respiratory distress. Breath sounds: Normal breath sounds. No stridor. No wheezing, rhonchi or rales. Abdominal: General: There is no distension. Palpations: Abdomen is soft. Tenderness: There is no abdominal tenderness. There is no guard (more content not included)...[facility]09-23-2022 History of Present illness Narrative* Luis Carnes MD - 11/15/2021 2:29 PM EDT Patient presents with: ER F/U HPI: Patient presents today for office visit for ER F/U. Went to ER on Thursday11/11/21 for chest pains. Seen at [facility] ER with several complaints. Had chest pain, abd pain, numbness in hands and feet. Still drinking etoh. States he has been compliant with meds. Dx in August with PE Was to treat for three months with eliquis per hematology. Was after covid. EKG ,chest xray were negative. Labs including troponins and lipase wee negative. Potassium was low at three Bili was up at 2.3m ast was 241, alt was 94, alk phos up at 234. Etoh was 279. He is still having chest pain all across his chest. Laying down makes it worse. Slightly short of breath. Deep breathing makes it worse. Has not been taking eliquis for several days. Has gotten worse over the weekend. Walking makes it worse. No yellowing to the skin. Is nauseated and vomiting recurrently. He is not keeping anything to the skin. No itching. Last etoh was this am. No pain in his stomach. Some tingling in his legs. Still seeing hematology and gi. MEDICATIONS: Current Outpatient Medications Medication Sig ELIQUIS 5 mg tab(s) TAKE 2 (TWO) TABLETS twice a day for the first week. Then TAKE 1 (ONE) TABLET twice a day. No current facility-administered medications for this visit. ALLERGIES: ALLERGIES Allergen Reactions Naproxen Rash Plus GI upset PAST MEDICAL HISTORY Diagnosis Date Arthritis Chronic pain syndrome Depression Gallstones Hiatal hernia Other, mixed, or unspecified nondependent drug abuse, continuous abuse with both prescription and street obtained narcotics SOB (shortness of breath) PAST SURGICAL HISTORY Procedure Laterality Date CHOLECYSTECTOMY 04/11/2020 lap EGD 06/30/2019 2 cm hiatal hernia, erythema in stomach and duodenum EXTRACTION ERUPTED TOOTH/EXR age 18 FOOT SURGERY HX Left 2019 X2 screw in left foot LAST ONE IN NOV 2019 INGUINAL HERNIA REPAIR HX Left 1993 PAST SURGICAL HISTORY OF 2011 X2 cervical disc disease LAST ONE IN 2011 PAST SURGICAL HISTORY OF Left 2006 THUMB SURGERY X3 LAST ONE IN 2006 WRIST SURGERY HX Left 05/31/06 (year?) X2 wrist (L), Dr. Ruiz -- cyst and calcium build-up, tendon repaired LAST ONE IN 2006 FAMILY HISTORY Problem Relation Age of Onset Hypertension Father Coronary Artery Disease Other none Diabetes Paternal Grandfather Colon Cancer Other none Prostate Cancer Other none Social History Tobacco Use Smoking status: Every Day Packs/day: 1.00 Years: 8.00 Pack years: 8.00 Types: Cigarettes Smokeless tobacco: Former Vaping Use Vaping Use: Never used Substance Use Topics Alcohol use: Yes Alcohol/week: 5.0 standard drinks Types: 2 Cans of Beer (12oz) per week Drug use: Not Currently Comment: none since 2012 Reviewed current medications, allergies, past medical history, surgical history, family history andsocial history today. REVIEW OF SYSTEMS All other reviewed and negative other than HPI. HEALTH MAINTENANCE: Reviewed health maintenance issues today and recommended the following in detail. HEPATITIS B(1 of 3 - 3-dose series) Never done COVID-19 VACCINE(1) Never done PNEUMOCOCCAL(1 - PCV) Never done DEPRESSION SCREENING Never done HIV SCREENING Never done DTAP,TDAP,TD(1 - Tdap) Never done LIPID SCREEN due on 05/30/2021 INFLUENZA(1) due on 10/24/2021 VITALS: BP 112/80 Pulse (!) 130 Ht 185.4 cm (6' 1) Wt 69.8 kg (153 lb 12.8 oz) SpO2 99% BMI 20.29 kg/m Last 4 Encounter Wt Readings: Date: Wt: 09/16/2021 70.7 kg (155 lb 12.8 oz) 11/20/2020 66 kg (145 lb 9.6 oz) 05/04/2020 64.8 kg (142 lb 12.8 oz) 04/24/2020 72.6 kg (160 lb) PHYSICAL EXAMINATION: General appearance: Well appearing, alert, in no acute distress, well-hydrated, well nourished. Skin: Skin color, texture, turgor normal, no suspicious rashes or lesions Head: Normocephalic, no masses, lesions, tenderness or abnormalities Eyes: sclera nonicteric. Lungs: Lungs clear to auscultation. No wheezing, rhonchi, rales Heart: RRR without murmur, gallop, or rubs. No ectopy Abdomen: marked hepatomegaly. Bowel sounds positive. No definite ascites. No rebound or marked tenderness. Extremities: No deformities, edema, skin discoloration, clubbing or cyanosis. Good capillary refill. ASSESSMENT/PLAN: 1. Chest pain, unspecified type - ICD9: 786.50, ICD10: R07.9 (primary diagnosis) - doubt cardiac. Given that he has been off his eliquis. Rule out pe recurrence. Etc. To ER. Notified [facility] ER via ER passport. Declines squad transport - ECG COMPLETE 2. Other acute pulmonary embolism without acute cor pulmonale (HCC) - ICD9: 415.19, ICD10: I26.99 3. ETOHism (HCC) - ICD9: 303.90, ICD10: F10.20 - advised him he needs to stop drinking to avoid complications including . 4. SOB (shortness of breath) - ICD9: 786.05, ICD10: R06.02 5. Elevated liver enzymes - ICD9: 790.5, ICD10: R74.8 6. Chronic pain syndrome - ICD9: 338.4, ICD10: G89.4 Per 180 - BUPRENORPHINE 8 MG-NALOXONE 2 MG SUBLINGUAL FILM Luis Carnes MD documented in this encounterPromed[facility]09-20-2022 Miscellaneous Notes* Telephone Encounter - Mark Flores LPN - 11/12/2021 2:30 PM EDT TC to pt, notified of provider instructions. Appt scheduled. Mark Flores LPN * Telephone Encounter - Luis Carnes MD - 11/12/2021 12:48 PM EDT In [facility] ER for Chest pain eval. Lliver enzymes up significantly. Recommend he follow up with one of us in next week or so documented in this encounterPromedica [facility]iance [facility]07-27-2022 History of Present illness Narrative* Luis Carnes MD - 09/18/2021 12:03 PM EDT Patient presents with: Covid Follow Up HPI:This Team Access Model visit is a phone encounter. It required patient- provider interaction forthe medical decision making as documented below. Patient was offered a virtual/telemedicine appointment in lieu of an office visit due to recommendations to reduce patient exposure to COVID-19. Patient is aware of limitations of performing the visit without a face to face visit in the office setting and agrees. I last saw him in 2015. In the hospital recently for PE. Positive on pcr on 09/16/21, Started with symptoms on Thursday. Woke up feeling dehydrated and malaise. No shortness of breath. Has some sinus congestion. No sore throat. No ear pain. Some nausea and vomiting and diarrhea. No abd pain Still with fatigue. Myalgias are better. 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 Advised to treat for three months with eliquis. Advised to see us for check up at some point. No covid vaccines. Discussed risks and benefits of covid vaccine. Recommended they consider it. MEDICATIONS: Current Outpatient Medications Medication Sig ELIQUIS 5 mg tab(s) TAKE 2 (TWO) TABLETS twice a day for the first week. Then TAKE 1 (ONE) TABLET twice a day. No current facility-administered medications for this visit. ALLERGIES: ALLERGIES Allergen Reactions Naproxen Rash Plus GI upset PAST MEDICAL HISTORY Diagnosis Date Arthritis Chronic pain syndrome Depression Gallstones Hiatal hernia Other, mixed, or unspecified nondependent drug abuse, continuous abuse with both prescription and street obtained narcotics SOB (shortness of breath) PAST SURGICAL HISTORY Procedure Laterality Date CHOLECYSTECTOMY 04/11/2020 lap EGD 06/30/2019 2 cm hiatal hernia, erythema in stomach and duodenum EXTRACTION ERUPTED TOOTH/EXR age 18 FOOT SURGERY HX Left 2019 X2 screw in left foot LAST ONE IN NOV 2019 INGUINAL HERNIA REPAIR HX Left 1993 PAST SURGICAL HISTORY OF 2011 X2 cervical disc disease LAST ONE IN 2011 PAST SURGICAL HISTORY OF Left 2006 THUMB SURGERY X3 LAST ONE IN 2006 WRIST SURGERY HX Left 05/31/06 (year?) X2 wrist (L), Dr. Ruiz -- cyst and calcium build-up, tendon repaired LAST ONE IN 2006 FAMILY HISTORY Problem Relation Age of Onset Hypertension Father Coronary Artery Disease Other none Diabetes Paternal Grandfather Colon Cancer Other none Prostate Cancer Other none Social History Tobacco Use Smoking status: Current Every Day Smoker Packs/day: 1.00 Years: 8.00 Pack years: 8.00 Types: Cigarettes Smokeless tobacco: Former User Vaping Use Vaping Use: Never used Substance Use Topics Alcohol use: Yes Alcohol/week: 5.0 standard drinks Types: 2 Cans of Beer (12oz) per week Drug use: Not Currently Comment: none since 2012 Reviewed current medications, allergies, past medical history, surgical history, family history andsocial history today. REVIEW OF SYSTEMS All other reviewed and negative other than HPI. VITALS: There were no vitals taken for this visit. Last 4 Encounter Wt Readings: Date: Wt: 09/16/2021 70.7 kg (155 lb 12.8 oz) 11/20/2020 66 kg (145 lb 9.6 oz) 05/04/2020 64.8 kg (142 lb 12.8 oz) 04/24/2020 72.6 kg (160 lb) PHYSICAL EXAMINATION: Patient is alert and oriented during visit. Answers appropriately. No audible cough. Speaking in full sentences. ASSESSMENT/PLAN: 1. COVID-19 - ICD9: 079.89, ICD10: U07.1 (primary diagnosis) - doing well. Call if any issues. He is not a paxlovid candidate due to eliquis. Declines alternative treatments. Red flags for re-assessment reviewed with patient in detail. 2. ETOHism (HCC) - ICD9: 303.90, ICD10: F10.20 3. Other acute pulmonary embolism without acute cor pulmonale (HCC) - ICD9: 415.19, ICD10: I26.99 - follow up Luis Carnes I spent 12 minutes in the visit, with more than 50% of the total [id number] time of the visit in counseling / coordination of care. documented in this encounterPromedica [facility]07-26-2022 Miscellaneous Notes* Telephone Encounter - Mark Flores LPN - 09/17/2021 2:54 PM EDT TC to pt, notified of provider response. Pt verbalized understanding. Appt scheduled. Mark Flores LPN * Telephone Encounter - Luis Carnes MD - 09/17/2021 2:22 PM EDT Being on eliquis is a good thing. Would recommend phone visit with one of us. * Telephone Encounter - Alana Wilson RN - 09/17/2021 1:49 PM EDT Patient reports he is covid +. Notified by EC. Patient understands he needs to quarantine for 5 days, then if s/s improve and no fever for 24 hours without the use of fever reducing medication, may come out of quarantine, but continue to wear a mask for 5 more days in public. Patient understands heshould get plenty of fluids and rest and treat the symptoms. Patient's concern- he has blood clots in his right lower leg and lungs. Taking eliquis for a month now. Reports he broke his foot and ankle and did not get treatment right away and ended up with blood clots. He is very concerned about this, with having covid. Asking pcp to advise. Patient unable todo VV. Reports s/s started on 09-15-21: productive cough, sore throat, HOWELL, nausea, fatigue. Reports he was exposed to a covid + person (stayed the night at their house). documented in this encounterPromedica [facility]07-26-2022 Miscellaneous Notes* Telephone Encounter - Selene Wharton RN - 09/17/2021 6:06 AM EDT Patient calling for lab result. Patient denies any new or worsening symptoms of which a provider isnot aware:Yes. Informed patient COVID 19 test results were negative. GO TO THE EMERGENCY ROOM OR CALL 911 IF: * You develop any new symptoms * Your condition worsens * You are concerned or anxious about your condition for any other reason. If you have any questions, you can call Nurse marketing and communications officer back. documented in this encounterPromedica Def[facility]07-25-2022 History of Present illness Narrative* Maico Paredes MD - 09/16/2021 1:34 PM EDT Patient presents with: Nausea & Vomiting: sore throat, HOWELL, cough x 1 day HPI: Feeling sick today. His girlfriend was exposed to COVID and is not feeling well either. Positive symptoms: Cough, Sore throat, Headache, Nausea, Vomiting, Fatigue, baseline shortness of breath from blood clot in his lung. Negative symptoms: Diarrhea, OTC: Ibuprofen PAST MEDICAL HISTORY Diagnosis Date Arthritis Chronic pain syndrome Depression Gallstones Hiatal hernia Other, mixed, or unspecified nondependent drug abuse, continuous abuse with both prescription and street obtained narcotics SOB (shortness of breath) MEDICATIONS: Current Outpatient Medications Medication Sig ELIQUIS 5 mg tab(s) TAKE 2 (TWO) TABLETS twice a day for the first week. Then TAKE 1 (ONE) TABLET twice a day. Buprenorphine-Naloxone (SUBOXONE) 8-2 mg film Dissolve 1 Film under the tongue once daily. No current facility-administered medications for this visit. ALLERGIES: ALLERGIES Allergen Reactions Naproxen Rash Plus GI upset VITALS: BP 122/84 Pulse 120 Temp 37 C (98.6 F) Resp 21 Wt 70.7 kg (155 lb 12.8 oz) SpO2 96% BMI20.56 kg/m PHYSICAL EXAM: GEN: mildly ill appearing, alert HEENT: PERRL, EOMI, conjunctiva clear Ears: canals clear. TMs without erythema, bulge, or effusion Sinuses: non-tender frontal sinus, non-tender maxillary sinuses Throat: moist mucous membranes, mild erythema, no exudate Neck: supple, no thyromegaly, no lymphadenopathy HEART: regular rate and rhythm, no murmurs LUNGS: clear to auscultation, no wheezes or crackles, no increased WOB ABD: Soft, non-distended, non-tender, no masses ASSESSMENT/PLAN: 1. Acute viral syndrome - ICD9: 079.99, ICD10: B34.9 - suspect viral URI, differential includes COVID-19. - Discussed supportive care treatment with home isolation, rest, hydration, cold medicine, and analgesia. Informed to avoid NSAIDs while taking eliquis. - Red flags to seek further treatment include chest pain, shortness of breath, and lethargy; in theER if severe. . - 2019 CORONAVIRUS Maico Paredes MD [facility] NoteHNO ID: [id number] Author: Cesia Bedoya Cnp) Jean Service: ? Author Type: Nurse Practitioner Type: Progress Notes Filed: 04/24/2020 2:53 PM Note Text: Cesia Pena APRN, ALEJO General Surgery [address] [facility], [address] [place] [id number] Patient referred by: SELF Patient presents with: Post Op: lap gaby HPI: This is a post operative visit. Tapan Dailey is a 39-year-old male who underwent laparoscopic cholecystectomy on 04/11/[address] Osorio. He presents to the office today for a postoperative evaluation. SURGICAL PATHOLOGY: Consistent with mild chronic cholecystitis SUBJECTIVE/INTERVAL HISTORY: He is doing well today and denies pain. He is tolerating a regular diet and denies nausea or emesis. He is having bowel function. He denies fevers, chills, or issues to his surgical incisions. PAST MEDICAL HISTORY Diagnosis Date - Arthritis - Chronic pain syndrome - Depression - Gallstones - Hiatal hernia - Other, mixed, or unspecified nondependent drug abuse, continuous abuse with both prescription and street obtained narcotics - SOB (shortness of breath) PAST SURGICAL HISTORY Procedure Laterality Date - CHOLECYSTECTOMY 04/11/2020 lap - EGD 06/30/2019 2 cm hiatal hernia, erythema in stomach and duodenum - EXTRACTION ERUPTED TOOTH/EXR age 18 - FOOT SURGERY HX Left 2019 X2 screw in left foot LAST ONE IN NOV 2019 - INGUINAL HERNIA REPAIR HX Left 1993 - PAST SURGICAL HISTORY OF 2011 X2 cervical disc disease LAST ONE IN 2011 - PAST SURGICAL HISTORY OF Left 2006 THUMB SURGERY X3 LAST ONE IN 2006 - WRIST SURGERY HX Left 05/31/06 (year?) X2 wrist (L), Dr. Ruiz -- cyst and calcium build-up, tendon repaired LAST ONE IN 2006 FAMILY HISTORY Problem Relation Age of Onset - Hypertension Father - Coronary Artery Disease Other none - Diabetes Paternal Grandfather - Colon Cancer Other none - Prostate Cancer Other none Social History Tobacco Use - Smoking status: Current Every Day Smoker Packs/day: 1.00 Years: 8.00 Pack years: 8.00 Types: Cigarettes - Smokeless tobacco: Former User Substance Use Topics - Alcohol use: Yes Alcohol/week: 5.0 standard drinks Types: 2 Cans of Beer (12oz) per week - Drug use: Not Currently Comment: none since 2012 Current Outpatient Medications Medication Sig - ondansetron (ZOFRAN) 4 mg tablet Take by mouth every 8 hours as needed. - folic acid 1 mg tablet once daily. - Buprenorphine-Naloxone (SUBOXONE) 8-2 mg film Dissolve 1 Film under the tongue once daily. - yaguzb-xidmvxjy-lzvubgq (CREON) 6,000-19,000 -30,000 unit cpDR Take 1 capsule by mouth three times daily with meals for 10 days. (Patient not taking: Reported on 04/24/2020 ) No current facility-administered medications for this visit. ALLERGIES Allergen Reactions - Naproxen Rash Plus GI upset REVIEW OF SYSTEMS: GENERAL: No weight loss, malaise or fevers GI: Negative for abdominal pain, nausea , vomiting, diarrhea, constipation and signs of jaundice Positive for none GENITOURINARY: No history of dysuria, frequency, urgency or hematuria SKIN:Negative for lesions, rash, and itching HEMATOLOGIC/LYMPHATIC/IMMUNOLOGIC:Negative for prolonged bleeding, bruising easily or swollen nodes PHYSICAL EXAM: BP 100/70 Pulse 78 Resp 20 Ht 6' 1 (1.85m) Wt 160 lb (72.6kg) BMI 21.11 kg/(m2). GENERAL APPEARANCE: Well appearing, alert, in no acute distress, well-hydrated, well nourished.. SKIN: Skin color, texture, turgor normal, no suspicious rashes or lesions LUNGS: Unlabored on room air ABDOMEN: Abdomen soft, non-tender. Bowel sounds normal. No masses, organomegaly. NEURO: Alert, oriented x3, speech clear and articulate and CATES DATA: Diagnostic tests reviewed for today's visit: Pathology report reviewed Greater than 50% of the direct patient contact time was spent in counseling or coordination of care. ASSESSMENT/PLAN: 1. S/P laparoscopic cholecystectomy - ICD9: V45.89, ICD10: Z90.49 This is a 39-year-old male S/P laparoscopic cholecystectomy on 04/11/[address] Osorio. He is doing well postoperatively and his incisions are healing nicely. We reviewed his surgical pathology today which is consistent with mild chronic cholecystitis. He was advised to continue his lifting restrictions until 05/02/2020. He may follow-up in the office as needed for any issues or concerns. Cesia Pena APRN.PRIMARY TEACHER Please Note: This office note has been created using [employer], a speech recognition software program, and may contain errors including punctuation, grammar, spelling, gender, and inappropriate words or phrases that pertain to the sytem.[facility]02-[facility] NoteHNO ID: [id number] Author: Carri Reid Service: Anesthesiology Author Type: Anesthesiologist Type: Anesthesia Procedure Notes Filed: 04/11/2020 5:38 PM Note Text: ANESTHESIOLOGY PROCEDURE NOTE Airway General Information Procedure Start Time/Medication Administration: 04/11/2020 12:28 PM Patient location during procedure: OR Timeout Performed Pre-procedure: timeout performed Consent Obtained: Yes Patient identity confirmed: arm band Staffing TRACER POWDER BLENDER: Nemo (Manager Inspection Radha) Shaji Performed by: TRACER POWDER BLENDER Indications and Patient Condition Preoxygenated: yes Patient position: sniffing Manual In-Line Stabilization: No Difficult Mask: No Indications for airway management: anesthesia anesthesia circuit Method: asleep Cricoid Pressure: No Final Airway Details Final airway type: endotracheal airway Final Endotracheal Airway: ETT Cuffed: yes Successful intubation technique: direct laryngoscopy Endotracheal tube insertion site: oral Blade: Dillon Blade size: #4 ETT size (mm): 8.0 Measured from: teeth Measurement (cm): 22 Placement verified by: chest auscultation and capnometry Cormack-Lehane Classification: grade I - full view of glottis Number of attempts at approach: 1 Failed airway: no Unrecognized esophageal intubation: no Airway not difficult SIGNATURE: Beata Padgett APRN.CRNA PATIENT NAME: Tapan Dailey DATE: April 11, 2020 TIME: 12:50 PM CSN: [id number] History of Past illness Narrative* Problem Noted Date Resolved Date Gallstones 04/11/2020 04/11/2020 Routine general medical exam ination at a health care facility 12/08/2008 11/28/2011 Overview: 12/08/2008, from Dr. Dallas Sterilization 11/26/2007 12/08/2008 Predominant disturbance of emotions 10/01/2007 12/08/2008 Unspecified adjustment reaction 10/01/2007 12/08/2008 Patellar tendinitis 07/28/2005 12/08/2008 documented as of this encounter (statuses as of 09/16/2021) [address]17-2021 History of Past illness Narrative* Problem Noted Date Resolved Date Gallstones 04/11/2020 04/11/2020 Routine general medical exam ination at a health care facility 12/08/2008 11/28/2011 Overview: 12/08/2008, from Dr. Dallas Sterilization 11/26/2007 12/08/2008 Predominant disturbance of emotions 10/01/2007 12/08/2008 Unspecified adjustment reaction 10/01/2007 12/08/2008 Patellar tendinitis 07/28/2005 12/08/2008 documented as of this encounter (statuses as of 09/17/2021) [address]17-2021 History of Past illness Narrative* Problem Noted Date Resolved Date Gallstones 04/11/2020 04/11/2020 Routine general medical exam ination at a health care facility 12/08/2008 11/28/2011 Overview: 12/08/2008, from Dr. Dallas Sterilization 11/26/2007 12/08/2008 Predominant disturbance of emotions 10/01/2007 12/08/2008 Unspecified adjustment reaction 10/01/2007 12/08/2008 Patellar tendinitis 07/28/2005 12/08/2008 documented as of this encounter (statuses as of 09/18/2021) [address]17-2021 History of Past illness Narrative* Problem Noted Date Resolved Date Gallstones 04/11/2020 04/11/2020 Routine general medical exam ination at a health care facility 12/08/2008 11/28/2011 Overview: 12/08/2008, from Dr. Dallas Sterilization 11/26/2007 12/08/2008 Predominant disturbance of emotions 10/01/2007 12/08/2008 Unspecified adjustment reaction 10/01/2007 12/08/2008 Patellar tendinitis 07/28/2005 12/08/2008 documented as of this encounter (statuses as of 11/12/2021) [facility]02[facility] History of Past illness Narrative* Problem Noted Date Resolved Date Gallstones 04/11/2020 04/11/2020 Routine general medical exam ination at a health care facility 12/08/2008 11/28/2011 Overview: 12/08/2008, from Dr. Burt Whitaker 11/26/2007 12/08/2008 Predominant disturbance of emotions 10/01/2007 12/08/2008 Unspecified adjustment reaction 10/01/2007 12/08/2008 Patellar tendinitis 07/28/2005 12/08/2008 documented as of this encounter (statuses as of 11/15/2021) [facility]02-04-[facility]21 NoteHNO ID: [id number] Author: Gladis Little DO Service: Emergency Medicine Author Type: Resident Type: Procedures Filed: 05/15/2020 3:39 PM Note Text: Limited Ultrasound for Gallstones Indication ? Patient presents with abdominal pain in the right upper quadrant and epigastric region. Procedure in Detail ? Using the curvilinear probe sagittal and transverse views of the gallbladder were obtained ? Gallstones were Absent. ? The Anterior Wall of the gallbladder measured Less than 3mm. ? The Common Bile Duct measured Less than 7mm. ? Pericholecystic Fluid was Absent. ? Sonographic Matos?s Sign was Absent. - Still images or video images were saved for this of this exam: Yes ? A radiology performed ultrasound study was ordered: Yes Conclusion - Bedside POC Ultrasound ? This exam is No Evidence of Cholelithiasis. Sonographic evidence of Cholecystitis was Absent. This limited imaging study was performed by: Resident/STACIA with Attending supervision.[facility]01-19-2021 NoteHNO ID: [id number] Author: Eliezer Osorio Service: ? Author Type: Physician Type: Progress Notes Filed: 03/13/2020 8:45 AM Note Text: Patient referred by: Margot Adler MD [facility] [address] HPI: This is a new patient consult from Dr. Adler. 39-year-old male with several hospitalizations for pancreatitis. He has been a heavy drinker but is currently cutting back. He was also worked up and found to have gallstones. He has pain in the epigastric and right upper quadrant. He has no nausea or vomiting. He has had weight loss. He is working with [facility] and other treatment entities for his alcohol use. He denies any jaundice. He has never had any surgery in his pancreas in the past. . PAST MEDICAL HISTORY Diagnosis Date - Chronic pain syndrome - Depression - Hiatal hernia - Other, mixed, or unspecified nondependent drug abuse, continuous abuse with both prescription and street obtained narcotics - SOB (shortness of breath) PAST SURGICAL HISTORY Procedure Laterality Date - EGD 06/30/2019 2 cm hiatal hernia, erythema in stomach and duodenum - EXTRACTION ERUPTED TOOTH/EXR age 18 - FOOT SURGERY HX Left screw in left foot - INGUINAL HERNIA REPAIR HX Left age 13 +/- - PAST SURGICAL HISTORY OF 2011 cervical disc disease - WRIST SURGERY HX Left 05/31/06 (year?) wrist (L), Dr. Ruiz -- cyst and calcium build-up, tendon repaired FAMILY HISTORY Problem Relation Age of Onset - Hypertension Father - Coronary Artery Disease Other none - Diabetes Paternal Grandfather - Colon Cancer Other none - Prostate Cancer Other none Social History Tobacco Use - Smoking status: Current Every Day Smoker Packs/day: 1.00 Years: 8.00 Pack years: 8.00 Types: Cigarettes - Smokeless tobacco: Former User Substance Use Topics - Alcohol use: Yes Alcohol/week: 5.0 standard drinks Types: 2 Cans of Beer (12oz) per week - Drug use: Not Currently Comment: none since 2012 Current Outpatient Medications Medication Sig - folic acid 1 mg tablet - IBU 400 mg tablet - ondansetron orally disintegrating (ZOFRAN ODT) 4 mg disintegrating tablet - Buprenorphine-Naloxone (SUBOXONE) 8-2 mg film Dissolve 1 Film under the tongue once daily. - omeprazole (PRILOSEC) 20 mg capsule Take 2 capsules by mouth once daily. (Patient not taking: Reported on 02/21/2020 ) No current facility-administered medications for this visit. ALLERGIES Allergen Reactions - Naproxen Rash - Narcotics [Opioids * Patient asked to have documented NO NARCOTICS do to recurrent history of abuse - Vicodin [Hydrocodon* HEADACHES REVIEW OF SYSTEMS: GENERAL: Weight loss GI: Negative for nausea , vomiting, diarrhea, constipation and signs of jaundice Positive for abdominal pain RUQ PHYSICAL EXAM: BP 96/64 Pulse 96 Resp 16 Ht 6' 1 (1.85m) Wt 139 lb (63.1kg) SpO2 97% BMI 18.34 kg/(m2). GENERAL APPEARANCE: Well appearing, alert, in no acute distress, well-hydrated, well nourished.. ABDOMEN: Soft. There is tenderness to palpation the right upper quadrant. There is no rebound or guarding. NEURO: Alert, oriented x3, no asterixis, speech clear and articulate and CATES HEART: regular rate and rhythm, without murmur LUNGS: clear to auscultation, without rales or wheeze, good air exchange DATA: Diagnostic tests reviewed for today's visit: Most recent imaging A total of 30 minutes was spent in direct patient contact. Greater than 50% of the direct patient contact time was spent in counseling or coordination of care. ASSESSMENT / PLAN: 1. Other chronic pancreatitis (HCC) I reviewed his ultrasound. This showed gallstones. I do long discussion with him and told him I would like to get a CT scan to better assess his pancreas. I like to ensure he does not have findings of chronic pancreatitis on the CT scan. If so he may need surgical resection of this area. I will see him in the office after he gets a CT scan performed. - COMP METABOLIC PANEL; Future - CT ABD/PEL W IVCON; Future - LIPASE BLD; Future Eliezer Osorio MD Please Note: This office note has been created using [employer], a speech recognition software program, and may contain errors including punctuation, grammar, spelling, gender, and inappropriate words or phrases that pertain to the sytem. ?[facility]01-18-2021 NoteHNO ID: [id number] Author: Eliezer Osorio Service: ? Author Type: Physician Type: Progress Notes Filed: 03/12/2020 2:22 PM Note Text: AMBULATORY TELEPHONE VISIT Tapan Dailey has consented to this telephone encounter. Persons Present: patient Chief Complaint/Reason: Test results HPI: 39-year-old male with gallstone and alcohol pancreatitis. He is drinking less. He still has pain in the epigastric region. He has no nausea or vomiting. He has no fevers or chills. He denies any jaundice. Data Reviewed: Most recent imaging Assessment: No diagnosis found. I reviewed his CT scan. There is no evidence of any chronic pancreatitis changes on the CT scan. Had a long discussion with him and told him he would need a laparoscopic cholecystectomy. Risk and benefits were discussed with him including but not exclusive to bleeding infection possibility of conversion open procedure were discussed with him he wished to move forward the operation. Plan: Laparoscopic cholecystectomy with grams Total Time Spent: 11 minutes [facility] Diagnosis Onset Date Resolution Status Alcohol dependence acute Alcoholic hepatitis acute Abdominal pain resolved Acute hypokalemia resolved Hypokalemia resolved Nausea and vomiting resolved Alcohol abuse with physiological dependence acute Alcohol dependence acute Alcohol withdrawal acute Ascites acute Sinus tachycardia acute [facility] Work Phone: Evaluation note* Diagnosis Onset Date Resolution Status Abdominal pain resolved Acute hypokalemia resolved Alcoholic hepatitis resolved Hypokalemia resolved Nausea and vomiting resolved Alcohol withdrawal resolved Sinus tachycardia resolved Liver disease [facility] Work Phone: Evaluation note* Diagnosis Acute viral syndrome- Primary Unspecified viral infection, in conditions classified elsewhere and of unspecified site [facility] Diagnosis COVID-19- Primary ETOHism (HCC) Other and unspecified alcohol dependence, unspecified drinking behavior Other acute pulmonary embolism without acute cor pulmonale (HCC) [facility] Diagnosis Onset Date Resolution Status Liver disease acute Acute DVT of right tibial vein acute Protein C deficiency acute Pulmonary embolism acute [facility] Work Phone: Evaluation note* Diagnosis Chest pain, unspecified type- Primary Other acute pulmonary embolism without acute cor pulmonale (HCC) ETOHism (HCC) Other and unspecified alcohol dependence, unspecified drinking behavior SOB (shortness of breath) Shortness of breath Elevated liver enzymes Other nonspecific abnormal serum enzyme levels Chronic pain syndrome [facility] Diagnosis Onset Date Resolution Status Liver disease acute Acute DVT of right tibial vein acute Protein C deficiency acute Pulmonary embolism acute Acute DVT of right tibial vein acute Alcohol dependence acute Desire for detoxification ac [place] [facility] Work Phone: Evaluation note* Diagnosis Onset Date Resolution Status Liver disease acute Acute DVT of right tibial vein acute Protein C deficiency acute Pulmonary embolism acute Acute DVT of right tibial vein acute Alcohol dependence acute Alcoholic hepatitis acute Desire for detoxification ac [place] Hypokalemia acute Hypomagnesemia acute [facility] Work Phone: Evaluation note* Diagnosis Onset Date Resolution Status Alcohol dependence acute Alcoholic hepatitis acute Desire for detoxification ac [place] Hypomagnesemia acute Acute DVT of right tibial vein chronic Hypokalemia resolved Protein C deficiency acute Acute DVT of right tibial vein chronic Pulmonary embolism chronic Alcohol withdrawal acute [facility] Work Phone: Evaluation note* Diagnosis Onset Date Resolution Status Admit Date Desire for detoxification resolved October 05, 2024 5:59pm [facility] Work Phone: History and physical note Author Mecca Vargas [facility] Note Date/Time October 05, 2024 6: 05pm [facility] Medical Records Department [address] [place] [address] H&P Exam - Hospitalist 10/05/24 1758 MR#: [id number] Acct: [id number] Name: TAPAN DAILEY Rep #:[id number] : 1980 44 From: Mecca Vargas MD PCP: Dr. Luis Carnes MD Status:REG E R Location: ED HPI - General General Date of Admission: 10/05/24 Date of Service: 10/05/24 Chief Complaint: Requesting EtOH detox HPI Narrative TAPAN DAILEY, is a 44-year-old male history of alcohol use disorder, tobacco use, VTE who presented to [facility] ED 10/05/2024 requesting alcohol detox. Reportedly he has had increased stress from separation from being for 18 years, kids, and working so he has relapsedon alcohol the past few months after being sober for 443 days. He reports he has been drinking throughout the day and will wake up and start drinking, last drink was 30 minutes prior to arrival and he had already had a sixpack of beer and several shots already today. In the ED temp 98, heart rate 100 and blood pressure 120/95, respiratory rate 18 pulse ox 97% on room air. CBC with white blood cell count 10.4 and hemoglobin 15.2, CMP with a total bili 1.9, AST 220, ALT 150 and alk phos 149, alcohol level 163. Hospitalist contacted for admission for alcohol detox. Patient evaluated at bedside. He reports [id number] beers a day and up to half a handle on top of that drinks from the time hewakes up until he goes to bed. Also smokes cigarettes but denies any other substance use except occasional marijuana. Does report that he has been having some indigestion symptoms for the past couple of weeks and sometimes is nauseousin the morning so has had some decreased p.o. intake. Also reports he chronically has some problems where he will have a little bit of abdominal pain when he lays on his right side denies that this is changed. Currently has a headache and has for about the past hour, he thinks the lights may be bothering his eyes. No other new or acute complaints [facility] Medical History DVT (deep venous thrombosis) Alcoholic liver disease Protein C deficiency History of venous thromboembolism History of narcotic addiction Tobacco use Anxiety and depression Kidney stones Alcohol abuse Migraine Home Medications ?Medication ?Instructions ?Recorded ?Last Taken ?Type apixaban 5 mg (74 tabs) tablets in See Rx Instructions .Route 04/12/24 Unknown Rx a dose pack (EliquMedaNext DVT-PE Treat .COMPLEX #74 tabs 30D Start) hydrocodone-acetaminophen 5-325mg 1 tab PO Q6H PRN PRN Pain 3 days 06/11/24 Unknown Rx 5mg-325mg #10 TABLETS Allergy/AdvReac Type Severity Reaction Status Date / Time No Known Allergies Allergy Verified 10/05/24 16:50 Family History Mother Breast cancer Thyroid disorder Father Thyroid disorder Surgical History History of hand surgery History of surgery on left wrist History of hernia repair History of foot surgery History of cholecystectomy Nec[employer] Social History household members: none housing: house Smoking Status: Heavy Smoker (>10/day) alcohol intake: current alcohol intake frequency: 3 or more drinks per day details: Hard liquor, 10-20 shots daily. substance use type: former substance user seatbelt use: always do you feel safe at home: Yes ROS ROS Narrative General: Denies fever/chills HENT: Has had headache for the past hour, denies stuffy nose, denies sore throat EYES: Denies changes in vision Resp: Denies cough, denies shortness of breath Cardiac: Denies chest pain GI: Sometimes gets some right sided abdominal pain, denies changes in bowel, hasbeen getting some indigestion and nausea in the morning : Denies changes in urination Extremity: Denies swelling MSK: Denies weakness Neuro: Denies any numbness/tingling Heme: Denies any bleeding or bruising Skin: Denies rashes Psychiatric: No complaints voiced Vital Signs Vital Signs Vital Signs: 10/05/24 16:50 Temperature 98 F Temperature Source Temporal Pulse Rate 100 Respiratory Rate 18 Blood Pressure 120/95 H Blood Pressure Mean 103 Pulse Ox 97 Oxygen Delivery Method Room Air Weight Weight: 78.653 kg Body Mass Index (BMI) 22.8 Physical Exam Narrative General: Alert, oriented, no apparent distress HEENT: Atraumatic, normocephalic Eyes: Anicteric, normal conjunctiva, extraocular movements grossly intact Neck: Supple Respiratory: Clear to auscultation bilaterally, normal respiratory effort Cardiovascular: Regular rate and rhythm GI: Soft, nontender, is a little rounded Extremities: No edema Musculoskeletal: Moving all extremities Neuro: No overt focal neurological deficits Skin: No rashes appreciated Psych: Cooperative Results Lab / Micro Data 10/05/24 17:01 10/05/24 17:01 Labs: Laboratory Results - last 24 hr 10/05/24 17:01: WBC 10.4, RBC 4.22 L, Hgb 15.2, Hct 41.7, MCV 98.8 H, MCH 36.0 H, MCHC 36.5 H, RDW Std Deviation 65.1 H, RDW Coeff of Margaret 17.8 H, Plt Count 153,MPV 10.5, Immature Gran % (Auto) 1.100 H, Neut % (Auto) 57.5, Lymph % (Auto) 27.1, [place] % (Auto) 12.8 H, Eos % (Auto) 0.9, Baso % (Auto) 0.6, Absolute Neuts (auto) 6.0, Absolute Lymphs (auto) 2.82, Nucleated RBC % 0, Sodium 134, Potassium 3.7, Chloride 94 L, Carbon Dioxide 23.3, Anion Gap 16 H, BUN 4, Creatinine 0.79, Estim Creat Clear Calc 132.75, Est GFR (MDRD) Non-Af 112, BUN/Creatinine Ratio 4.6 L, Glucose 86, Calcium 9.2, Total Bilirubin 1.90 H, AST 220 H, ALT 150 H, Alkaline Phosphatase 149 H, Total Protein 7.7, Albumin 4.2, Globulin 3.5, Albumin/Globulin Ratio 1.2, Ethyl Alcohol 163.0 H Assessment & Plan Assessment/Plan (1) Desire for detoxification: PLAN: Plan #Alcohol use disorder - We will begin CIWA every 4 for 24 hours, then every 6 for 24 hours, then every12 until discharge -Will begin phenobarbital taper -Gabapentin 300 mg every 8 as needed -Will start Bentyl and hydroxyzine as needed as well as loperamide as needed -Trazodone 100 mg p.o. nightly as needed sleep -Begin thiamine and folic acid supplementation -Zofran as needed for nausea -Case management consult to assist with discharge planning -EtOH 163 -UDS pending at the time of admission # Elevated liver function tests -Has had elevations in the past, suspect that this is alcohol related -Will benefit from outpatient follow-up with repeat lab work and further workup if necessary #Reflux and morning nausea - Patient has been on Prilosec before and has a history of reflux, not presentlytaking anything - Symptoms do sound related to GERD - Will trial PPI #Tobacco use -Advise cessation -Nicotine replacement available if desired # History of VTE - Provoked DVT after an ankle surgery, status post Eliquis #DVT ppx: Given his history of VTE will place on prophylactic Lovenox Mecca Vargas MD Charges/Coding Visit Charges Inpatient E&M: 57854 Init Hosp L2 10/05/24 1805 <Electronically signed by Mecca Vargas MD> Cosigner Signature (if applicable): CC: Dr. Mecca Vargas MD; Dr. Luis Carnes MD~ Signed [facility] Work Phone: Hospital Discharge instructions Additional Instructions Ice to all sore areas. Tylenol or Pitcher for pain. Follow-up with your doctor if the knee is not improving. The CAT scan your brain look good. Your left knee x-ray look good. The CAT scan of your chest look good they did not see any broken ribs or collapsed lung. Do not drink alcohol if using the pain medication.[facility] Work Phone: Reason for referral (narrative)* Outpatient Procedure (Routine) - Authorized Specialty Diagnoses / Procedures Referred By Contac t Ref[facility] Diagnoses Chest pain, unspecified type Procedures ECG COMPLETE ECG ROUTINE ECG W/LEAST 12 LDS W/I&R Luis Carnes MD [address] [place] [address] [facility] [place] [address] [place] [address] Referral ID Status Reason Start Date Expiration Date Visits Requested Visits Authorized [id number] Authorized Auto-Generat ed Referral 11/15/2021 11/15/2022 1 1 [facility] for referral (narrative)No reason for referral information available[facility] Work Phone: Summary Purpose Family History Relationship Condition Age at Onset Recorded Date/T debbie Not Specified Malignant neoplasm of breast Unknown Disorder of thyroid Unknown Relationship Condition Age at Onset Recorded Date/T debbie mother Malignant neoplasm of breast Unknown Disorder of thyroid Unknown father Disorder of thyroid Unknown Advance Directives Advance Directive Response Recorded Date/ Time Advance Directives No October 12, 2015 2:50pm Living Will No May 16, 2021 12:57am Power of Jumpbasting Lining Baster No May 16 12:57am Advance Directive Response Recorded Date/ Time Advance Directives No October 12, 2015 2:50pm Living Will No August 14, 2021 10:30am Power of [employer] [place] No August 14 10:30am Documents on File Type Date Recorded Patient Physical Education Specialist Expl anation Advance Directive(s) 04/11/2020 10:38 AM Advance Directive(s) 03/29/2020 4:08 PM Advance Directive(s) 06/30/2019 8:34 AM Advance Directive Response Recorded Date/ Time Advance Directives No September 03 4:13pm Living Will No November 11, 2021 9:47pm Power of [employer]basting [place] [employer]aster No October 9:47pm Advance Directive Response Recorded Date/ Time Advance Directives No September 03 4:13pm Living Will No November 19, 2021 8:05pm Power of [employer] [place] [employer]aster No October 8:05pm Advance Directive Response Recorded Date/ Time Advance Directives No September 03 4:13pm Living Will No November 19, 2021 9:53pm Power of [employer] [place] [employer]aster No October 9:53pm Advance Directive Response Recorded Date/ Time Advance Directives No September 03 3:13pm Living Will No January 02 12:43am Power of [employer] [place] [employer] No January 02, 2022 12:43am Advance Directive Response Recorded Date/ Time Living Will No April 12 025 1:55pm Do you have a Healthcare Pow er of Jumpbasting [place] Baster? No April 12, 2024 1:55pm Living Will Yes March 02 5:33pm Do you have a Healthcare Pow er of [employer]basting [place] Baster? Yes March 02, 2024 5:33pm Name of Medical Power of Jumpbasting Lining Baster Fabiana Spenc er March 02, 2024 5:33pm Living Will No April 17 7:49pm Do you have a Healthcare Pow er of [employer]basting [place] Baster? No April 17, 2024 7:49pm Living Will No June 11, 2024 7:04pm Do you have a Healthcare Pow er of [employer]basting [place]ining Baster? No June 11, 2024 7:04pm Advance Directives No September 03 4:13pm Advance Directive Response Recorded Date/ Time Do you have a Healthcare Power of Jumpbasting [employer] Baster? No October 05, 2024 4:49pm Living Will No June 11, 2024 7:04pm Do you have a Healthcare Power of [employer]basting [employer]ining Baster? No June 11, 2024 7:04pm Advance Directives No September 03 4:13pm Hospital Course Note Send Summary: Discharge Summ bosque Providers: Provider RoleProvider Name Luis Muro Note Recipients: Clyde Carrasco MD Lago, Luis Marquez MD - [id number] [] Discharge: Summary: Admission Date: .16-Jan-2020 10:10:00 Discharge Date: 18-Jan-2020 Attending Physician at Discharge: Clyde Carrasco Admission Reason: Abdominal pain(1) Final Discharge Diagnoses: Acute pancreatitis Procedures: none Condition at Discharge: Satisfactory Disposition at Discharge: .Home Vital Signs: T PRBPSpO2 [id number]/8196% Date/Time01/17 11: 11: 11: 11: 11:33 Range(35.9C - 36.6C ) (70 - 85 ) (18 - 18 ) (107 - 136 )/ (72 - 84 ) (94% - 97% ) Date: Weight/Scale Type:Height: 17-Jan-2020 01:3167.3 kg / yud817.4 cm Physical Exam: Constitutional: Well developed, awake/alert/oriented x3, no distress, alert and cooperative Eyes: PERRL, EOMI, clear sclera ENMT: mucous membranes moist, no apparent injury, no lesions seen Head/Neck: Neck supple, no apparent injury, thyroid (more content not included)... Note Send Summary: Discharge [facility] Providers: Provider RoleProvider Name AttendingSoKimberly Rossi William J Note Recipients: pcp Discharge: Summary: Admission Date: .01-Feb-2020 18:49:00 Discharge Date: 03-Feb-2020 Attending Physician at Discharge: Kimberly aSnchez Admission Reason: abdominal pain Final Discharge Diagnoses: 1. Acute on chronic Pancreatitis 2. Alcohol withdrawal 3. abdominal pain 4. hypomagnesemia Procedures: none Condition at Discharge: Satisfactory Disposition at Discharge: .Home Vital Signs: T PRBPSpO2 [id number]/9297% Date/Time02/02 16: 16: 16: 16: 16:19 Range(36C - 37C ) (81 - 131 ) (16 - 18 ) (118 - 160 )/ (79 - 94 ) (92% - 97% ) Highest temp of 37 C was recorded at 02/02 12:42 Date: Weight/Scale Type:Height: 02-Feb-2020 05:4265.2 kg / mmubqurx580.4 cm Physical Exam: Constitutional: lying in bed disheveled with some tremors Eyes: clear sclera ENMT: moist oral mucosa Head/Neck: No JVD Respiratory/Thorax: clear to auscu (more content not included)... Chief Complaint and Reason for Visit Chief Complaint ABD PAIN ALCOHOL WD ALCOHOL WD ALCOHOL WD ALCOHOL WD ALCOHOL WD SUBSTANCE USE DISORDER/ALCOHOL DETOX SUBSTANCE USE DISORDER/ALCOHOL SUBSTANCE USE DISORDER/ALCOHOL SUBSTANCE USE DISORDER/ALCOHOL SUBSTANCE USE DISORDER/ALCOHOL SUBSTANCE USE DISORDER/ALCOHOL SUBSTANCE USE DISORDER/ALCOHOL Reason for Visit Alcohol dependence Alcoholic hepatitis Abdominal pain Acute hypokalemia Hypokalemia Nausea and vomiting Alcohol abuse with physiological dependence Alcohol dependence Alcohol withdrawal Ascites Sinus tachycardia Chief Complaint ABD PAIN ALCOHOL WD ALCOHOL WD ALCOHOL WD ALCOHOL WD ALCOHOL WD SUBSTANCE USE DISORDER/ALCOHOL DETOX SUBSTANCE USE DISORDER/ALCOHOL SUBSTANCE USE DISORDER/ALCOHOL SUBSTANCE USE DISORDER/ALCOHOL SUBSTANCE USE DISORDER/ALCOHOL SUBSTANCE USE DISORDER/ALCOHOL SUBSTANCE USE DISORDER/ALCOHOL H FU E ORDER Reason for Visit Abdominal pain Acute hypokalemia Alcoholic hepatitis Hypokalemia Nausea and vomiting Alcohol withdrawal Sinus tachycardia Liver disease Chief Complaint ALCOHOL WD ALCOHOL WD ALCOHOL WD ALCOHOL WD ALCOHOL WD SUBSTANCE USE DISORDER/ALCOHOL DETOX SUBSTANCE USE DISORDER/ALCOHOL SUBSTANCE USE DISORDER/ALCOHOL SUBSTANCE USE DISORDER/ALCOHOL SUBSTANCE USE DISORDER/ALCOHOL SUBSTANCE USE DISORDER/ALCOHOL SUBSTANCE USE DISORDER/ALCOHOL H FU E ORDER right ankle MRCP LIVER DISEASE Reason for Visit Abdominal pain Acute hypokalemia Alcoholic hepatitis Hypokalemia Nausea and vomiting Alcohol withdrawal Sinus tachycardia Liver disease Chief Complaint H FU E ORDER right ankle MRCP LIVER DISEASE NEW-DVT/PE GENERAL ILLNESS Reason for Visit Liver disease Acute DVT of right tibial vein Protein C deficiency Pulmonary embolism Chief Complaint H FU E ORDER right ankle MRCP LIVER DISEASE NEW-DVT/PE GENERAL ILLNESS GENERAL ILLNESS ALCOHOL DETOX Reason for Visit Liver disease Acute DVT of right tibial vein Protein C deficiency Pulmonary embolism Acute DVT of right tibial vein Alcohol dependence Desire for detoxification Chief Complaint H FU E ORDER right ankle MRCP LIVER DISEASE NEW-DVT/PE GENERAL ILLNESS GENERAL ILLNESS ALCOHOL DETOX ALCOHOL DETOX ALCOHOL DETOX ALCOHOL DETOX ALCOHOL DETOX Reason for Visit Liver disease Acute DVT of right tibial vein Protein C deficiency Pulmonary embolism Acute DVT of right tibial vein Alcohol dependence Alcoholic hepatitis Desire for detoxification Hypokalemia Hypomagnesemia Chief Complaint GENERAL ILLNESS GENERAL ILLNESS ALCOHOL DETOX ALCOHOL DETOX ALCOHOL DETOX ALCOHOL DETOX ALCOHOL DETOX 3MO LABS 3MO LABS ACUTE ETOH WITHDRAWL ACUTE ETOH WITHDRAWL Reason for Visit Alcohol dependence Alcoholic hepatitis Desire for detoxification Hypomagnesemia Acute DVT of right tibial vein Hypokalemia Protein C deficiency Acute DVT of right tibial vein Pulmonary embolism Alcohol withdrawal Chief Complaint Admit Date ALCOHOL DETOX March 02, 2024 3: 58pm ALCOHOL DETOX March 03, 2024 8: 24am ALCOHOL DETOX March 04, 2024 7 :28am ALCOHOL DETOX March 05, 2024 1 0:13am CHEST PAIN April 12, 2024 12:34pm hemoptysis April 17, 2024 6:37pm LEFT KNEE June 11, 2024 6:2 7pm Reason for Visit Admit Date Desire for detoxification March 02 3:58pm Chief Complaint Admit Date LEFT KNEE June 11, 2024 6:2 7pm alcohol detox October 05, 2024 5: 58pm ALCOHOL DETOX October 05, 2024 5: 59pm Reason for Visit Admit Date Desire for detoxification October 05 5:59pm Health Concerns Infection Onset Date Last Indicated Resolved Time COVID-19 Rule-Out 09/16/2021 09/16/2021 Infection Onset Date Last Indicated Resolved Time COVID-19 Rule-Out 09/16/2021 09/16/2021 09/17/2021 1:07 AM EDT COVID-19 Confirmed 09/16/2021 09/16/2021 Infection Onset Date Last Indicated Resolved Time COVID-19 Confirmed 09/16/2021 09/16/2021 Additional Source Comments (unrecognized sect ion and content) No Status Records FoundNo Status Records FoundNo Status Records FoundNo Status Records FoundNo Status Records Found INFORMATION SOURCE (unrecogn ized section and content) DATE CREATED AUTHOR 02/08/2020 [facility] DATE CREATED AUTHOR AUTHOR'S ORGANIZ ATION 05/05/2020 [facility] DATE CREATED AUTHOR AUTHOR'S ORGANIZ ATION 06/12/2020 [facility] DATE CREATED AUTHOR AUTHOR'S ORGANIZ ATION 02/23/2023 [facility] DATE CREATED AUTHOR AUTHOR'S ORGANIZ ATION 06/17/2024 [facility] Goals (unrecognized section and content) Goals may be documented in a n alternate sectionGoals may be documented in an alternate sectionGoals may be documented in an alternate sectionGoals may be documented in an alternate sectionGoals may be documented in an alternate section Source Comments (unrecognize d section and content) In the event this informatio n is protected by the [facility] of Alcohol and Drug Abuse Patient Records regulations: The Federal rules restrict any use of the information to criminally investigate or prosecute any alcohol or drug abuse patient.[facility] the event this information is protected by the Federal Confidentiality of Alcohol and Drug Abuse Patient Records regulations: The Federal rules restrict any use of the information to criminally investigate or prosecute any alcohol or drug abuse patient.[facility] the event this information is protected by the Federal Confidentiality of Alcohol and Drug Abuse Patient Records regulations: The Federal rules restrict any use of the information to criminally investigate or prosecute any alcohol or drug abuse patient.[facility] the event this information is protected by the Federal Confidentiality of Alcohol and Drug Abuse Patient Records regulations: The Federal rules restrict any use of the information to criminally investigate or prosecute any alcohol or drug abuse patient.[facility] the event this information is protected by the Federal Confidentiality of Alcohol and Drug Abuse Patient Records regulations: The Federal rules restrict any use of the information to criminally investigate or prosecute any alcohol or drug abuse patient.[facility] the event this information is protected by the Federal Confidentiality of Alcohol and Drug Abuse Patient Records regulations: The Federal rules restrict any use of the information to criminally investigate or prosecute any alcohol or drug abuse patient.[facility] the event this information is protected by the Federal Confidentiality of Alcohol and Drug Abuse Patient Records regulations: The Federal rules restrict any use of the information to criminally investigate or prosecute any alcohol or drug abuse patient.[facility] Reason for Visit (unrecogniz ed section and content) Reason Comments Nausea & Vomiting sore throat, HOWELL, cou gh x 1 day Reason Comments Information Reason Comments Opened In Error Reason Comments Covid19 Concern Reason Comments Covid Follow Up Reason Comments Patient Update Reason Comments ER F/U Care Teams (unrecognized sec tion and content) Office Machine Service Supervisor Relationship Specialty Start Date End Date Luis Carnes MD [address] [place] [address] PCP - General Family Practice 11/28/11 Office Machine Service Supervisor Relationship Specialty Start Date End Date Luis Carnes MD [address] [facility] [place], [place] [address] PCP - General Family Practice 11/28/11 Office Machine Service Supervisor Relationship Specialty Start Date End Date Luis Carnes MD [address] [facility] [place], [place] [id number] PCP - General Family Practice 11/28/11 Office Machine Service Supervisor Relationship Specialty Start Date End Date Luis Carnes MD [address] [facility] [place], [place] [id number] PCP - General Family Medicine 11/28/11 Office Machine Service Supervisor Relationship Specialty Start Date End Date Luis Carnes MD [address] [facility] [place], [place] [id number] PCP - General Family Medicine 11/28/11 Team Status: Active Member Role Status Dates Dr. Luis Carnes MD Primary Care Provider Active Team Status: Inactive Member Role Status Dates Dr. Luis Carnes MD Primary Care Provider Active Start: March 02, 2024 End: March 05, 2024 Dr. Ewa Condon DO Emergency Provider Active Start: March 02, 2024 End: March 05, 2024 Dr. María Elena Steiner MD Admit Provider Active St art: March 02, 2024 End: March 05, 2024 Dr. María Elena Steiner MD Other Provider Active St art: March 02, 2024 End: March 05, 2024 Dr. Tej Machuca MD Attending Provider Active Start: March 02, 2024 End: March 05, 2024 Team Status: Active Member Role Status Dates Dr. Luis Carnes MD Primary Care Provider Active Start: March 03, 2024 Dr. Ewa Condon DO Emergency Provider Active Start: March 03, 2024 Dr. María Elena Steiner MD Admit Provider Active St art: March 03, 2024 Dr. María Elena Steiner MD Other Provider Active St art: March 03, 2024 Dr. Tej Machuca MD Attending Provider Active Start: March 03, 2024 Dr. Tej Machuca MD Other Provider Active Star t: March 03, 2024 Team Status: Active Member Role Status Dates Dr. Luis Carnes MD Primary Care Provider Active Start: March 04, 2024 Dr. Ewa Condon DO Emergency Provider Active Start: March 04, 2024 Dr. María Elena Steiner MD Admit Provider Active St art: March 04, 2024 Dr. María Elena Steiner MD Other Provider Active St art: March 04, 2024 Dr. Tej Machuca MD Attending Provider Active Start: March 04, 2024 Dr. Tej Machuca MD Other Provider Active Star t: March 04, 2024 Team Status: Active Member Role Status Dates Dr. Luis Carnes MD Primary Care Provider Active Start: March 05, 2024 Dr. Ewa Condon DO Emergency Provider Active Start: March 05, 2024 Dr. María Elena Steiner MD Admit Provider Active St art: March 05, 2024 Dr. María Elena Steiner MD Other Provider Active St art: March 05, 2024 Dr. Tej Machuca MD Attending Provider Active Start: March 05, 2024 Dr. Tej Machuca MD Other Provider Active Star t: March 05, 2024 Team Status: Inactive Member Role Status Dates Dr. Luis Carnes MD Primary Care Provider Active Start: April 12, 2024 End: April 12, 2024 Dr. Kain De Jesus MD Attending Provider Active S tart: April 12, 2024 End: April 12, 2024 Dr. Kain De Jesus MD Emergency Provider Active S tart: April 12, 2024 End: April 12, 2024 Team Status: Inactive Member Role Status Dates Dr. Luis Carnes MD Primary Care Provider Active Start: April 17, 2024 End: April 17, 2024 Dr. Rajinder Mensah DO Attending Provider Active Start: April 17, 2024 End: April 17, 2024 Dr. Rajinder Mensah DO Referring Provider Active Start: April 17, 2024 End: April 17, 2024 Dr. Rajinder Mensah DO Emergency Provider Active Start: April 17, 2024 End: April 17, 2024 Team Status: Inactive Member Role Status Dates Dr. Luis Carnes MD Primary Care Provider Active Start: June 11, 2024 End: June 11, 2024 Dr. Kain De Jesus MD Referring Provider Active S tart: June 11, 2024 End: June 11, 2024 Dr. Kain De Jesus MD Emergency Provider Active S tart: June 11, 2024 End: June 11, 2024 Team Status: Active Member Role/Relationship Status Dates Dr. Luis Carnes MD Primary Care Provider Active Team Status: Inactive Member Role/Relationship Status Dates Dr. Luis Carnes MD Primary Care Provider Active Start: June 11, 2024 End: June 11, 2024 Dr. Kain De Jesus MD Attending Provider Active S tart: June 11, 2024 End: June 11, 2024 Dr. Kain De Jesus MD Referring Provider Active S tart: June 11, 2024 End: June 11, 2024 Dr. Kain De Jesus MD Emergency Provider Active S tart: June 11, 2024 End: June 11, 2024 Team Status: Active Member Role/Relationship Status Dates Dr. Luis Carnes MD Primary Care Provider Active Start: October 05, 2024 Dr. Germán West DO Emergency Provider Active Start : October 05, 2024 Dr. Mecca Vargas MD Attending Provider Active Start: October 05, 2024 Team Status: Active Member Role/Relationship Status Dates Dr. Luis Carnes MD Primary Care Provider Active Start: October 05, 2024 Dr. Germán West DO Emergency Provider Active Start : October 05, 2024 Dr. Mecca Vargas MD Admit Provider Active Star t: October 05, 2024 Dr. Mecca Vargas MD Attending Provider Active Start: October 05, 2024 FOR RECORDS PERTAINING TO PATIENTS WHO ARE OR HAVE BEEN ENROLLED IN A CHEMICAL DEPENDENCY/SUBSTANCEABUSE PROGRAM, SOME INFORMATION MAY BE OMITTED. This clinical summary was aggregated from multiple sources. Caution should be exercised in using it in the provision of clinical care. This summary normalizes information from multiple sources, and as a consequence, information in this document may materially change the coding, format and clinical context of patient data. In addition, data may be omitted in some cases. CLINICAL DECISIONS SHOULD BE BASED ON THE PRIMARY CLINICAL RECORDS. [facility] [employer] [facility]. provides no warranty or guarantee of the accuracy or completeness of information in this document.
[2024-10-05 22:29] VITALS: BP 110/65; PULSE 105; RESP 16; TEMP 36.6; O2SAT 95
[2024-10-06 02:30] VITALS: BP 105/70; PULSE 93; RESP 16; TEMP 36.6; O2SAT 95
[2024-10-06 06:03] LABS: Prothrombin Time (Protime)PT. 13.8 SECONDS (11.7-14.9)
[2024-10-06 06:21] LABS: AST(SGOT) 130 U/L (<=37); Alanine Aminotransfer ALT/SGPT 114 U/L (<=46); Albumin, Serum 3.6 g/dL (3.5-5.0); Alkaline Phosphatase 127 U/L (40-129); Anion Gap 13 (5-15); BUN 8 mg/dL (4-19); BUN/Creat Ratio 9.8 RATIO (10-20); Calcium,Total 9.0 mg/dL (7.6-11.0); Carbon Dioxide 26.2 mmol/L (21.0-32.0); Chloride 96 mmol/L (98-108); Estimated Creatinine Clearance 131.14 ml/min (50-250); Globulin 2.9 g/dL (2.2-4.2); Glucose 118 mg/dL (70-99); Potassium 3.5 mmol/L (3.3-5.1)
[2024-10-06] MEDS: hydrOXYzine PAM 25 MG Capsule 50 MG PO (07:48)
[2024-10-06] MEDS: Thiamine Hydrochloride 100 MG Tablet PO (07:49)
[2024-10-06 10:01] LABS: Magnesium 1.7 mg/dL (1.5-2.2)
[2024-10-06 10:31] VITALS: BP 136/78; PULSE 70; RESP 17; TEMP 36.8; O2SAT 95
--- NOTE | 2024-10-06 11:52 | PN.HOSP_ITS ---
Reason for Visit Chief Complaint: Requesting EtOH detox Subjective Subjective Saw patient at bedside this morning. Patient was laying back comfortably in bed and in no acute distress. He did note that he had a headache this morning. Had been given a dose of ibuprofen for this about 10 minutes before I saw him. Otherwise his withdrawal symptoms are improved from yesterday. No other acute concerns this morning. Objective Data Objective Data Vital Signs: Vital Signs Temp Pulse Resp BP Pulse Ox O2 Del Method 98.2 F 70 17 136/78 H 95 Room Air 10/06/24 10:31 10/06/24 10:31 10/06/24 10:31 10/06/24 10:31 10/06/24 10:31 10/06/24 10:31 Oxygen Delivery Method Room Air Weight: 76.714 kg Body Mass Index (BMI) 22.3 Lab / Micro Data 10/05/24 17:01 10/06/24 05:27 Labs: Laboratory Results - last 24 hr 10/05/24 17:01: WBC 10.4, RBC 4.22 L, Hgb 15.2, Hct 41.7, MCV 98.8 H, MCH 36.0 H , MCHC 36.5 H, RDW Std Deviation 65.1 H, RDW Coeff of Margaret 17.8 H, Plt Count 153, MPV 10.5, Immature Gran % (Auto) 1.100 H, Neut % (Auto) 57.5, Lymph % (Auto) 27.1, [place] % (Auto) 12.8 H, Eos % (Auto) 0.9, Baso % (Auto) 0.6, Absolute Neuts (auto) 6.0, Absolute Lymphs (auto) 2.82, Nucleated RBC % 0, Differential Comment SCANNED, Platelet Estimate ADEQUATE, Polychromasia 1+, Anisocytosis 1+, Sodium 134, Potassium 3.7, Chloride 94 L, Carbon Dioxide 23.3, Anion Gap 16 H, BUN 4, Creatinine 0.79, Estim Creat Clear Calc 132.75, Est GFR (MDRD) Non-Af 112, B UN/Creatinine Ratio 4.6 L, Glucose 86, Calcium 9.2, Total Bilirubin 1.90 H, AST 220 H, ALT 150 H, Alkaline Phosphatase 149 H, Total Protein 7.7, Albumin 4.2, Globulin 3.5, Albumin/Globulin Ratio 1.2, Ethyl Alcohol 163.0 H 08/14/25 05:27: PT 13.8, INR 1.0, Sodium 135, Potassium 3.5, Chloride 96 L, Carbon Dioxide 26.2, Anion Gap 13, BUN 8, Creatinine 0.78, Estim Creat Clear Calc 131.14, Est GFR (MDRD) Non-Af 113, BUN/Creatinine Ratio 9.8 L, Glucose 118 H, Calcium 9.0, Phosphorus 4.0, Magnesium 1.7, Total Bilirubin 1.44 H, AST 130 H , ALT 114 H, Alkaline Phosphatase 127, Total Protein 6.5, Albumin 3.6, Globulin 2.9, Albumin/Globulin Ratio 1.3 Physical Exam Const alert, oriented x3, no apparent distress and average body habitus Constitutional Narrative: Middle-age male, mildly fatigued appearing but otherwise laying back comfortably in bed, conversing normally, in no acute distress. General Appearance: cooperative and comfortable HEENT normocephalic, head/scalp atraumatic, hearing grossly normal bilaterally, nasal mucous membranes and turbinates normal and moist oral mucous membranes Eyes PERRL, EOMs intact bilaterally and conjunctivae normal Neck full ROM Chest inspection of chest normal Resp normal respiratory effort, normal air movement, no use of accessory muscles and clear to auscultation bilaterally Cardio regular rate, regular rhythm, no murmurs and peripheral pulses 2+ throughout GI normal to inspection, nondistended, normoactive bowel sounds, soft to palpation, non-tender and non-distended Back/Spine normal ROM Extremity normal to inspection, full ROM and no pedal edema Skin no rashes or lesions noted Psych mental status grossly normal Assessment & Plan Assessment/Plan (1) Alcohol dependence: (2) Desire for detoxification: PLAN: Plan Patient is a 44-year-old male who presented to [facility] ED on 10/05/2024 for alcohol detox. 1. Alcohol use disorder with impending withdrawal and desire for detox ? Case management following. Was sober for about 1.5 years, recently started drinking heavily again due to life stressors. Reports drinking 12-18 beers per day plus up to a handle of liquor. Alcohol level 163 on admit. Treating with phenobarbital taper and other as needed medications per alcohol withdrawal order set with adequate control of withdrawal symptoms. Per addiction medicine, likely planning for inpatient treatment on discharge, will follow-up. 2. Elevated LFTs ? Total bilirubin 1.90, AST 220, ALT 150, alk phos 149 on admit. Improved on hospital day 2. No abdominal pain noted. Suspect secondary to mild alcoholic hepatitis. No further inpatient needs. 3. Suspected GERD ? Patient reported reflux symptoms with frequent morning nausea on admission. Symptoms sounded consistent with GERD. Has had some improvement with initiation of PPI. Continue PPI. 4. Tobacco dependence ? Nicotine patch ordered per patient request. Discussed cessation of discharge. 5. History of VTE ? Provoked DVT after ankle surgery in the past, completed course of Eliquis and has not had recurrence. Okay for prophylactic Lovenox as below. DVT prophylaxis: Lovenox CODE STATUS: Full code, verified Expected disposition: TBD Total clinical time spent by myself addressing the patient's medical issues, reviewing all the data, and collaborating with patient's care team: 25 minutes. Charges/Coding Visit Charges Inpatient E&M: 18847 Subs Hosp L1
--- NOTE | 2024-10-06 12:05 | ADDICTION ---
This content writer met with PT to conduct ASAM, MSE, AUDIT, DUDIT assessments and to plan for d/c. PT A+Ox4 and participated actively. All assessments completed. PT plans to f/u with follow-up treatment services/ Addiction therapist is working on finding placement. [facility] is going to call to screen for [facility] tomorrow. If approved they will have an available bed on Thursday. PT did not indicate a need for transportation post d/c from [facility].
[2024-10-06 13:30] LABS: Barbiturate Urine PRESUMPTIVE POSITIVE (< 200 ng/mL); Benzodiazepine Urine NEGATIVE (< 200 ng/mL); PCP Urine NEGATIVE (< 25 ng/mL); THC Urine PRESUMPTIVE POSITIVE (< 50 ng/mL)
--- NOTE | 2024-10-06 15:20 | CHAPLAIN ---
Type of Pastoral Visit ___ Initial Visit ___ Follow-up Visit ___ On-call Visit ___ General Patient Visit ___ Spiritual Assessment ___ Family Conference ___ Bereavement ___ Rapid Response ___ Code Blue ___ Other (describe below) Pastoral Care Referral From ___ Patient ___ Family ___ Nurse ___ Physician ___ Software Programmer ___ Broke Beater ___ Other (describe below) Sacrament/Intervention ___ Active listening ___ Anointing ___ Religious ___ Bereavement ___ Communion ___ Natacha exploration ___ ___ Life review ___ Prayer ___ Reconciliation ___ Sacrament of Sick ___ Supportive presence ___ Wedding ___ Other (describe below) Pastoral Comments patient is sleeping and does not awaken to his name; a calling card is left for possible future support
[2024-10-06 21:00] VITALS: PULSE 101; RESP 16
[2024-10-06 22:41] VITALS: BP 128/87; PULSE 101; RESP 16; TEMP 36.7; O2SAT 97
[2024-10-07] MEDS: hydrOXYzine PAM 25 MG Capsule 50 MG PO ×2 (00:07→21:09)
[2024-10-07 02:41] VITALS: BP 122/83; PULSE 101; RESP 16; TEMP 36.6; O2SAT 96
[2024-10-07 06:06] VITALS: BP 100/63; PULSE 97; RESP 16; TEMP 36.6; O2SAT 95
[2024-10-07] MEDS: Thiamine Hydrochloride 100 MG Tablet PO (09:05)
[2024-10-07 09:15] VITALS: BP 113/88; PULSE 89; RESP 16; TEMP 36.7; O2SAT 96
--- NOTE | 2024-10-07 10:51 | CASEMGMT ---
Addendum entered by Alexandra Segal 10/07/24 15:18: SW attempted to provide resources to pt; pt asleep. SW remains available to follow. ELIZABETH Patricia Original Note: Social Work- SW met with pt to discuss self pay status. It is noted that pt has [employer] for 3 more months; pt confirms. Pt reports that he has an insurance card in his locked tote. Pt would like community resources, but not at this time. Pt reports he did not fall asleep until 5am and his door has not stopped opening since then. SW offered to place a sign on door, but pt refused as he would like his food. SW remains available to follow. ELIZABETH Patricia
--- NOTE | 2024-10-07 10:59 | PN.HOSP_ITS ---
Reason for Visit Chief Complaint: Requesting EtOH detox Subjective Subjective Saw patient at bedside this morning. Patient appeared similar to yesterday, was fatigued appearing but otherwise laying back comfortably in bed and in no acute distress. No new concerns today. Objective Data Objective Data Vital Signs: Vital Signs Temp Pulse Resp BP Pulse Ox O2 Del Method 98.0 F 89 16 113/88 H 96 Room Air 10/07/24 09:15 10/07/24 09:15 10/07/24 09:15 10/07/24 09:15 10/07/24 09:15 10/07/24 09:15 Oxygen Delivery Method Room Air Weight: 76.714 kg Body Mass Index (BMI) 22.3 Intake & Output: Intake and Output for Last 24 Hours 10/05/24 10/06/24 10/07/24 23:59 23:59 23:59 Intake Total 480 / 480 Output Total 100 / 100 Balance 380 / 380 Lab / Micro Data 10/05/24 17:01 10/06/24 05:27 Labs: Laboratory Results - last 24 hr 10/05/24 11:11: Urine Opiates Screen NEGATIVE, U Buprenorphine Qual NEGATIVE, Ur Oxycodone Screen NEGATIVE, Urine Methadone Screen NEGATIVE, Urine Fentanyl Screen NEGATIVE, Ur Barbiturates Screen PRESUMPTIVE POSITIVE, Ur Phencyclidine Scrn NEGATIVE, Ur Amphetamines Screen NEGATIVE, U Benzodiazepines Scrn NEGATIVE, Urine Cocaine Screen NEGATIVE, U Cannabinoids Screen PRESUMPTIVE POSITIVE Physical Exam Const alert, oriented x3, no apparent distress and average body habitus Constitutional Narrative: Middle-age male, mildly fatigued appearing but otherwise laying back comfortably in bed, conversing normally, in no acute distress. General Appearance: cooperative and comfortable HEENT normocephalic, head/scalp atraumatic, hearing grossly normal bilaterally, nasal mucous membranes and turbinates normal and moist oral mucous membranes Eyes PERRL, EOMs intact bilaterally and conjunctivae normal Neck full ROM Chest inspection of chest normal Resp normal respiratory effort, normal air movement, no use of accessory muscles and clear to auscultation bilaterally Cardio regular rate, regular rhythm, no murmurs and peripheral pulses 2+ throughout GI normal to inspection, nondistended, normoactive bowel sounds, soft to palpation, non-tender and non-distended Back/Spine normal ROM Extremity normal to inspection, full ROM and no pedal edema Skin no rashes or lesions noted Psych mental status grossly normal Assessment & Plan Assessment/Plan (1) Alcohol dependence: (2) Desire for detoxification: PLAN: Plan Patient is a 44-year-old male who presented to [facility] ED on 10/05/2024 for alcohol detox. 1. Alcohol use disorder with impending withdrawal and desire for detox ? Case management following. Was sober for about 1.5 years, recently started drinking heavily again due to life stressors. Reports drinking 12-18 beers per day plus up to a handle of liquor. Alcohol level 163 on admit. Treating with phenobarbital taper and other as needed medications per alcohol withdrawal order set with adequate control of withdrawal symptoms. Per addiction medicine, likely planning for inpatient treatment [facility] on [facility]. Will be medically ready for discharge over the weekend with tentative plan to discharge there on Tuesday 10/10. 2. Elevated LFTs ? Total bilirubin 1.90, AST 220, ALT 150, alk phos 149 on admit. Improved on hospital day 2. No abdominal pain noted. Suspect secondary to mild alcoholic hepatitis. No further inpatient needs. 3. Suspected GERD ? Patient reported reflux symptoms with frequent morning nausea on admission. Symptoms sounded consistent with GERD. Has had some improvement with initiation of PPI. Continue PPI. 4. Tobacco dependence ? Nicotine patch ordered per patient request. Discussed cessation of discharge. 5. History of VTE ? Provoked DVT after ankle surgery in the past, completed course of Eliquis and has not had recurrence. Okay for prophylactic Lovenox as below. DVT prophylaxis: Lovenox CODE STATUS: Full code, verified Expected disposition: Likely inpatient alcohol treatment on Tuesday 10/10 Total clinical time spent by myself addressing the patient's medical issues, reviewing all the data, and collaborating with patient's care team: 25 minutes. Charges/Coding Visit Charges Inpatient E&M: 51155 Subs Hosp L1
--- NOTE | 2024-10-07 12:30 | ADDICTION ---
Clinician attempted to meet with pt today but he did not rouse to verbal prompting. [facility] staff to call in and screen pt for potential admission to inpatient treatment at [facility].
[2024-10-07 15:00] VITALS: BP 108/81; PULSE 97; RESP 18; TEMP 36.6; O2SAT 98
--- NOTE | 2024-10-07 15:17 | CHAPLAIN ---
Type of Pastoral Visit ___ Initial Visit ___ Follow-up Visit ___ On-call Visit ___ General Patient Visit ___ Spiritual Assessment ___ Family Conference ___ Bereavement ___ Rapid Response ___ Code Blue ___ Other (describe below) Pastoral Care Referral From ___ Patient ___ Family ___ Nurse ___ Physician ___ Protection Mgr ___ Food Court Team Member ___ Other (describe below) Sacrament/Intervention ___ Active listening ___ Anointing ___ Taoist ___ Bereavement ___ Communion ___ Natacha exploration ___ ___ Life review ___ Prayer ___ Reconciliation ___ Sacrament of Sick ___ Supportive presence ___ Wedding ___ Other (describe below) Pastoral Comments two more attempts today and patient remains soundly asleep; pt told staff that he did not want disturbed
[2024-10-07 20:23] VITALS: BP 131/76; PULSE 90; RESP 16; TEMP 36.9; O2SAT 96
[2024-10-08 02:23] VITALS: BP 129/93; PULSE 90; RESP 16; TEMP 36.6; O2SAT 97
[2024-10-08 07:01] LABS: Hematocrit 39.2 % (40-54); Hemoglobin 13.7 g/dL (13.0-16.5); Mean Corp Hgb Conc 34.9 g/dL (32-36); Mean Corpuscular Volume 102.1 fL (80-94); Mean Platelet Vol. 10.6 fl (6.2-12.0); POSITIVE MORPHOLOGY YES; Platelet Count 179 K/mm3 (150-450); RBC Distribution Width CV 18.2 % (11.6-14.6); RBC Distribution Width SD 68.9 fl (35.1-43.9); Red Blood Count 3.84 M/mm3 (4.6-6.2); White Blood Count 7.9 K/mm3 (4.4-11.0)
[2024-10-08 07:06] LABS: Scan Indicated on CBC? Y/N YES- FLAGS NOTED
[2024-10-08 07:47] LABS: AST(SGOT) 82 U/L (<=37); Alanine Aminotransfer ALT/SGPT 81 U/L (<=46); Albumin, Serum 3.6 g/dL (3.5-5.0); Alkaline Phosphatase 109 U/L (40-129); Anion Gap 11 (5-15); BUN 7 mg/dL (4-19); BUN/Creat Ratio 8.5 RATIO (10-20); Calcium,Total 8.8 mg/dL (7.6-11.0); Carbon Dioxide 26.0 mmol/L (21.0-32.0); Chloride 100 mmol/L (98-108); Estimated Creatinine Clearance 132.84 ml/min (50-250); Globulin 2.7 g/dL (2.2-4.2); Glucose 95 mg/dL (70-99); Potassium 3.9 mmol/L (3.3-5.1)
[2024-10-08 09:18] VITALS: BP 103/72; PULSE 93; RESP 16; TEMP 36.3; O2SAT 95
[2024-10-08] MEDS: Thiamine Hydrochloride 100 MG Tablet PO (09:23)
--- NOTE | 2024-10-08 11:26 | ADDICTION ---
PT has been screened and approved to admit to [facility] (inpatient treatment) on Thursday10/10/24. PT was advised and declined having any questions about the admissions process. Transportation to be provided by [facility].
[2024-10-08 14:40] VITALS: BP 109/81; PULSE 95; RESP 16; TEMP 36.6; O2SAT 98
--- NOTE | 2024-10-08 15:31 | PCM.PN.HOSP ---
Reason for Visit Chief Complaint: Requesting EtOH detox Subjective Subjective Patient was seen and examined today, he does not appear anxious or tremorous. Objective Data Objective Data Vital Signs: Vital Signs Temp Pulse Resp BP Pulse Ox O2 Del Method 97.8 F 95 16 109/81 H 98 Room Air 10/08/24 14:40 10/08/24 14:40 10/08/24 14:40 10/08/24 14:40 10/08/24 14:40 10/08/24 14:40 Oxygen Delivery Method Room Air Weight: 76.714 kg Body Mass Index (BMI) 22.3 Intake & Output: Intake and Output for Last 24 Hours 10/06/24 10/07/24 10/08/24 23:59 23:59 23:59 Intake Total 480 / 480 1100 / 1100 Output Total 100 / 100 Balance 380 / 380 1100 / 1100 Lab / Micro Data 10/08/24 05:40 10/08/24 05:40 Labs: Laboratory Results - last 24 hr 10/08/24 05:40: WBC 7.9, RBC 3.84 L, Hgb 13.7, Hct 39.2 L, MCV 102.1 H, MCH 35.7 H, MCHC 34.9, RDW Std Deviation 68.9 H, RDW Coeff of Margaret 18.2 H, Plt Count 179, MPV 10.6, Sodium 137, Potassium 3.9, Chloride 100, Carbon Dioxide 26.0, Anion Gap 11, BUN 7, Creatinine 0.77, Estim Creat Clear Calc 132.84, Est GFR (MDRD) Non-Af 113, BUN/Creatinine Ratio 8.5 L, Glucose 95, Calcium 8.8, Total Bilirubin 0.74, AST 82 H, ALT 81 H, Alkaline Phosphatase 109, Total Protein 6.4, Albumin 3.6, Globulin 2.7, Albumin/Globulin Ratio 1.3 Physical Exam Const alert, oriented x3 and no apparent distress General Appearance: cooperative, well kempt and well developed Orientation / Consciousness: awake, oriented to person, oriented to place and oriented to time HEENT normocephalic, head/scalp atraumatic and moist oral mucous membranes Eyes PERRL, EOMs intact bilaterally and conjunctivae normal Neck supple, no JVD, thyroid normal and no carotid bruits General: trachea midline Resp normal respiratory effort, no retractions, no use of accessory muscles and clear to auscultation bilaterally Auscultation: Negative for rales, rhonchi or wheezes Cardio regular rate, regular rhythm, S1 normal heart sound, S2 normal heart sound, no murmurs, no rub and no gallops GI normal to inspection, nondistended, normoactive bowel sounds, soft to palpation, non-tender and non-distended Extremity no clubbing, cyanosis or edema Skin no rashes or lesions noted General Skin Exam: no breakdown Neuro oriented x3, CN's II-XII intact bilaterally, moves all extremities, no focal motor deficits and no sensory deficits noted Sensorium / Orientation: awake and alert Speech: speech normal Psych affect normal Assessment & Plan Assessment/Plan (1) Alcohol dependence: PLAN: Plan 1. Acute alcohol withdrawal-patient will remain on his present medications, it appears from the medical record that the patient will be doing an inpatient detox program. #2 chronic alcoholism-complicates care, management, recovery, and prognosis, again patient is scheduled to go to an inpatient detox program #3 alcoholic hepatitis-patient's liver enzymes are trending downward, monitor as necessary Total clinical time spent by myself addressing patient's medical issues, reviewing all of his data, and collaborating with patient's care team: 35 minutes Charges/Coding Visit Charges Inpatient E&M: 81774 Subs Hosp L2
[2024-10-08 17:32] VITALS: BP 104/78; PULSE 99; RESP 16; TEMP 36.6; O2SAT 96
[2024-10-08] MEDS: hydrOXYzine PAM 25 MG Capsule 50 MG PO (19:26)
[2024-10-08 19:33] VITALS: BP 99/68; PULSE 103; RESP 16; TEMP 36.9; O2SAT 94
[2024-10-08 23:59] VITALS: BP 105/72; PULSE 91; RESP 16; TEMP 36.6; O2SAT 96
[2024-10-09 05:54] VITALS: BP 95/64; BP 96/64; PULSE 88; RESP 16; TEMP 36.6; O2SAT 95
[2024-10-09] MEDS: Thiamine Hydrochloride 100 MG Tablet PO (09:09)
[2024-10-09 09:13] VITALS: BP 109/83; PULSE 95; RESP 16; TEMP 36.6; O2SAT 97
--- NOTE | 2024-10-09 14:57 | PCM.PN.HOSP ---
Reason for Visit Chief Complaint: Requesting EtOH detox Subjective Subjective Patient was seen and examined today, he is walking in the hallway and does not appear to be in any distress. Patient voices no complaints. Objective Data Objective Data Vital Signs: Vital Signs Temp Pulse Resp BP Pulse Ox O2 Del Method 97.9 F 95 16 109/83 H 97 Room Air 10/09/24 09:13 10/09/24 09:13 10/09/24 09:13 10/09/24 09:13 10/09/24 09:13 10/09/24 09:13 Oxygen Delivery Method Room Air Weight: 76.714 kg Body Mass Index (BMI) 22.3 Intake & Output: Intake and Output for Last 24 Hours 10/07/24 10/08/24 10/09/24 23:59 23:59 23:59 Intake Total 1100 / 1100 Balance 1100 / 1100 Lab / Micro Data 10/08/24 05:40 10/08/24 05:40 Physical Exam Const alert, oriented x3, no apparent distress and average body habitus General Appearance: cooperative, well kempt and well developed Orientation / Consciousness: awake, oriented to person, oriented to place and oriented to time HEENT normocephalic, head/scalp atraumatic and moist oral mucous membranes Eyes PERRL, EOMs intact bilaterally and conjunctivae normal Neck supple, no JVD, thyroid normal and no carotid bruits General: trachea midline Resp normal respiratory effort, no retractions, no use of accessory muscles and clear to auscultation bilaterally Auscultation: Negative for rales, rhonchi or wheezes Cardio regular rate, regular rhythm, S1 normal heart sound, S2 normal heart sound, no murmurs, no rub and no gallops GI normal to inspection, nondistended, normoactive bowel sounds, soft to palpation, non-tender and non-distended Extremity no clubbing, cyanosis or edema Skin no rashes or lesions noted General Skin Exam: no breakdown Neuro oriented x3, CN's II-XII intact bilaterally, moves all extremities, no focal motor deficits and no sensory deficits noted Sensorium / Orientation: awake and alert Speech: speech normal Psych affect normal Assessment & Plan Assessment/Plan (1) Alcohol dependence: PLAN: Plan 1. Acute alcohol withdrawal-patient will remain on his present medications, it appears from the medical record that the patient will be doing an inpatient detox program. #2 chronic alcoholism-complicates care, management, recovery, and prognosis, again patient is scheduled to go to an inpatient detox program #3 alcoholic hepatitis-patient's liver enzymes are trending downward, monitor as necessary Total clinical time spent by myself addressing patient's medical issues, reviewing all of his data, and collaborating with patient's care team: 35 minutes Charges/Coding Visit Charges Inpatient E&M: 48357 Subs Hosp L2
[2024-10-09 15:46] VITALS: BP 100/75; PULSE 102; RESP 16; TEMP 36.6; O2SAT 99
[2024-10-09 23:58] VITALS: BP 121/78; PULSE 95; RESP 16; TEMP 36.4; O2SAT 99
[2024-10-10 04:00] VITALS: BP 116/65; PULSE 89; RESP 14; TEMP 36.6; O2SAT 96
[2024-10-10] MEDS: Thiamine Hydrochloride 100 MG Tablet PO (09:30)
[2024-10-10 09:35] VITALS: BP 114/83; PULSE 100; RESP 16; TEMP 36.7; O2SAT 98
--- NOTE | 2024-10-10 10:46 | DCINST_ITS ---
Discharge Instructions DC O2, CPAP, BIPAP needs Home O2 Discharge instructions: No Dressing / Incision Discharge Activity: Return to Normal Activity Weight Bearing Status: Full weight bearing Follow Up Care Test Results: Test results from this visit will be discussed in further detail at your follow- up appointment, if applicable. Discharge Plan Admission Admit Date/Time: 10/05/24 17:59 Primary Reason for Your Visit: alcohol detox Attending Provider: Martinez Phelan Primary Care Provider: Luis Riley Consulting Providers: Mecca Vargas; Randy Jacob Discharge Orders/Prescriptions Prescriptions: No Action NK Referrals / Follow Up: Luis Riley MD [Primary Care Provider] - Disposition Disposition (needs filled in before D/C Order can be placed): Home, Self Care
--- NOTE | 2024-10-10 10:48 | PCM.DC.SUM ---
Providers Date of Admission: 10/05/24 Date of Discharge: 10/10/24 Primary Care Physician: Dr. Luis Riley MD Reason For Visit: ALCOHOL DETOX Diagnosis Discharge Diagnosis (1) Alcohol dependence: Status: Acute Code(s): F10.20 - Alcohol dependence, uncomplicated Plan 1. Acute alcohol withdrawal-patient will remain on his present medications, it appears from the medical record that the patient will be doing an inpatient detox program. #2 chronic alcoholism-complicates care, management, recovery, and prognosis, again patient is scheduled to go to an inpatient detox program #3 alcoholic hepatitis-patient's liver enzymes are trending downward, monitor as necessary Total clinical time spent by myself addressing patient's medical issues, reviewing all of his data, and collaborating with patient's care team: 35 minutes Medications at Discharge Home Medications NK 10/05/24 Hospital Course Operations None Procedures None Summary of Care Provided Minutes Spent on Discharge: 30 Hospital Course: This 44-year-old white male was seen in the emergency room at [facility] requesting services for alcohol detox. Patient was admitted to [place] [id number] and orders were entered using the alcohol detox order set, patient was seen by addiction clinical social work therapist, during his hospitalization patient had no evidence of DTs and was minimally symptomatic from alcohol withdrawal. Patient was set up to go into an inpatient detox program. On 10/10/2024, patient was seen and examined: On examination he appeared in good health and spirits. Vital signs as documented. Skin warm and dry and without overt rashes. Neck without JVD, neck was supple, trachea midline, thyroid was normal. Lungs clear bilaterally, normal air movement was noted. Heart exam notable for regular rhythm, normal sounds and absence of murmurs, rubs or gallops. Abdomen unremarkable and without evidence of organomegaly, masses, or abdominal aortic enlargement. Bowel sounds are present, abdomen is not distended. Extremities nonedematous, no cyanosis was noted, no clubbing was noted. Neuro: Cranial nerves II through XII are grossly intact, no focal motor deficits were noted, sensation to light touch and pinprick intact, motor exam 5/5 throughout. Psych: Patient is alert and oriented x3, he does not appear anxious or depressed, he does not appear agitated. Patient was felt to be stable for discharge to an inpatient detox facility on 10/10/2024. Weight / BMI Weight Weight: 76.714 kg Body Mass Index (BMI) 22.3 ABG / Lab / Microbiology Data 10/08/24 05:40 10/08/24 05:40 D/C Instructions Weight Bearing Status: Full weight bearing DC O2, CPAP, BIPAP Needs Home O2 Discharge instructions: No Meaningful Use Info Meaningful Use Meaningful Use Diagnoses (Choose all that apply): None applicable Discharge Plan Admission Admit Date/Time: 10/05/24 17:59 Primary Reason for Your Visit: alcohol detox Attending Provider: Martinez Phelan Primary Care Provider: Luis Riley Consulting Providers: Mecca Vargas; Randy Jacob Discharge Orders/Prescriptions Prescriptions: No Action NK Referrals / Follow Up: Luis Riley MD [Primary Care Provider] - Disposition Disposition (needs filled in before D/C Order can be placed): Home, Self Care Charges/Coding Visit Charges Inpatient E&M: 18459 Disch Hosp
--- NOTE | 2024-10-10 14:20 | CHAPLAIN ---
Type of Pastoral Visit _x__ Initial Visit ___ Follow-up Visit ___ On-call Visit ___ General Patient Visit ___ Spiritual Assessment ___ Family Conference ___ Bereavement ___ Rapid Response ___ Code Blue ___ Other (describe below) Pastoral Care Referral From _x__ Patient ___ Family ___ Nurse ___ Physician ___ Television Receiver Analyzer ___ Mud Plant Operator ___ Other (describe below) Sacrament/Intervention _x__ Active listening ___ Anointing ___ Orthodoxy ___ Bereavement ___ Communion _x__ Natacha exploration ___ _x__ Life review _x__ Prayer ___ Reconciliation ___ Sacrament of Sick _x__ Supportive presence ___ Wedding ___ Other (describe below) Pastoral Comments patient was alert and awake today; pt is expecting to be discharged today; pt has a plan to go to [facility] for help in recovery; pt states that he has to live for family as he is soon to be a grandfather for the first time; pt admits that he does not have much experience in spiritual matters but also admits that nothing much has worked out without natacha in God; pt says I know there has to be someone that created all of this but I just have a hard time believing if I can't see him; talked about natacha, seeking, and hope for better days; pt also reminiscing about his past and some good times; pt is thankful for family; pt welcomes a prayer
== END 2024-10-10 12:40 | disposition other institution (70) | DRG 897 ==
LOC: ED 18:09 → MS3 18:12
PROVIDERS: Hospitalist; Admitting Provider Internal Medicine; Emergency Provider Emergency Medicine; PCP Family Medicine; Visit Provider Internal Medicine
DX: F10.239 Alcohol dependence with withdrawal, unspecified (principal); F17.200 Nicotine dependence, unspecified, uncomplicated; K70.10 Alcoholic hepatitis without ascites; K21.9 Gastro-esophageal reflux disease without esophagitis; Z79.891 Long term (current) use of opiate analgesic; Z86.718 Personal history of other venous thrombosis and embolism; Y90.6 Blood alcohol level of 120-199 mg/100 ml
CPT/HCPCS: 36415; 80053; 80307; 82077; 83735; 84100; 85025; 85027; 85610; 99283; A4216

== ENCOUNTER 2024-10-25 13:47 | Emergency (ER) | payer MEDICAID, SELFPAY ==
[2024-10-25 13:47] VITALS: BP 109/79; PULSE 109; RESP 18; TEMP 36.9; O2SAT 98; BMI 23.8
[2024-10-25 16:35] VITALS: BP 120/84; PULSE 96; RESP 18; TEMP 37; O2SAT 98
[2024-10-25] MEDS: Lidocaine 1% (20 ml mdv) 20 ML Vial INFILT (17:48)
[2024-10-25 17:49] VITALS: BP 132/94; PULSE 85; RESP 18; TEMP 36.9; O2SAT 98
--- NOTE | 2024-10-25 18:54 | EDS_ITS ---
HPI History of Present Illness Chief Complaint: Abscess Informant: patient Narrative Narrative: Patient is a 44-year-old male with history of alcohol abuse and hepatitis as well as DVT (not currently on any treatments as that medication is too expensive he does not have any refills) presenting with right sided scrotal pain and swelling. He states it developed about 4 days ago. He states he does get these and normally they will pop. He states he did have to have 1 lanced about 6 years ago [place]. He denies any fever or chills. No other complaints or concerns reported this time. Is currently in a sober living house and states he cannot have any opioid medication. [facility] Medical History Desire for detoxification Alcohol dependence GERD (gastroesophageal reflux disease) Smoker DVT (deep venous thrombosis) Alcoholic liver disease Protein C deficiency History of venous thromboembolism History of narcotic addiction Tobacco use Anxiety and depression Kidney stones Alcohol abuse Migraine Home Medications ?Medication ?Instructions ?Recorded ?Last Taken ?Type NK 10/05/24 Unknown History apixaban 5 mg (74 tabs) tablets in See Rx Instructions .Route 10/25/24 Unknown Rx a dose pack (Eliquis DVT-PE Treat .COMPLEX #74 tabs 30D Start) sulfamethoxazole 800 1 tab PO BID #14 tabs Unknown Rx mg-trimethoprim 160 mg tablet (Bactrim DS) Allergy/AdvReac Type Severity Reaction Status Date / Time No Known Allergies Allergy Verified 10/25/24 13:48 Family History Mother Breast cancer Thyroid disorder Father Thyroid disorder Surgical History History of hand surgery History of surgery on left wrist History of hernia repair History of foot surgery History of cholecystectomy Necks Fusion Social History household members: none housing: house Smoking Status: Heavy Smoker (>10/day) alcohol intake: current alcohol intake frequency: 3 or more drinks per day details: Hard liquor, 10-20 shots daily. substance use type: former substance user seatbelt use: always do you feel safe at home: Yes ROS ROS ED Constitutional Constitutional ED: Denies chills or fever(s) Gastrointestinal Gastrointestinal: Denies diarrhea, nausea or vomiting Genitourinary Genitourinary ED: Reports other Details: Right-sided testicular pain and swelling ; Denies dysuria, hematuria or urinary frequency Integumentary Reports abscess Neurologic Neurologic: Denies paresthesias or weakness Hematologic/Lymphatic Hematologic/Lymphatic: Denies easy bleeding or easy bruising EXAM Physical Exam Const Vital Signs: 10/25/24 13:47 10/25/24 16:35 10/25/24 17:49 Temperature 98.4 F 98.6 F 98.5 F Temperature Source Oral Oral Oral Pulse Rate 109 H 96 85 Respiratory Rate 18 18 18 Blood Pressure 109/79 120/84 H 132/94 H Blood Pressure Mean 89 96 106 Pulse Ox 98 98 98 Oxygen Delivery Method Room Air Room Air Room Air 10/25/24 19:00 10/25/24 19:32 Temperature 98.3 F 98.3 F Temperature Source Oral Pulse Rate 87 80 Respiratory Rate 18 18 Blood Pressure 122/95 H 128/87 H Blood Pressure Mean 104 100 Pulse Ox 96 96 Oxygen Delivery Method Room Air Positive well nourished and well developed General Appearance ED: well developed and NAD HEENT Reports moist mucous membranes Neck supple Resp normal respiratory effort and clear to auscultation bilaterally Cardio regular rate and regular rhythm GI normal to inspection, nondistended, normoactive bowel sounds and non-tender Narrative: Chaperoned exam performed?normal lie of the testes with no significant swelling. There is a localized area of fluctuance?approximately 2.5 cm in diameter. And tenderness on the lateral aspect of the right testes with no spontaneous drainage at this time. Mild associate erythema but no surrounding cellulitic changes. No induration appreciated. No associated crepitus, lymphangitic streaking or testicular/scrotal edema present Extremity normal to inspection General Extremety ED: Negative for edema General Extremity: Negative for edema Neuro Sensorium / Orientation: alert, orientation impaired, lethargic and stuporous Psych mental status grossly normal Skin Skin Narrative: Abscess to the right testes?see exam MDM MDM MDM Narrative Medical decision making narrative: Patient valuated for abscess to his right testes. Overall well-appearing. No findings on physical exam concerning for Micky's gangrene. Will perform I&D and send culture. Will start on Bactrim and given the new prescription for his Eliquis given his history of DVT and not currently on any treatment. He currently denies any signs or symptoms of PE/DVT acutely. I&D performed. Patient tolerated well. Discharged with prescriptions. Given return precautions. Patient agreeable plan of care. Procedures Other Procedures Procedure(s): Incision drainage?right scrotum Informed consent obtained. Area anesthetized with 1% lidocaine with epinephr ine. Once adequate analgesia was achieved 18-gauge needle used to aspirate out purulent fluid was sent for culture. A #11 blade then used to make stab incision over the area of maximum fluctuance. There is significant purulent drainage that is expressed. Hemostat used to open up any potential loculations. The area is irrigated. No further purulent drainage is obtained. Wound is left open and 2 x 2 dressing placed over the incision site. Patient Toller procedure well with no immediate complications Discharge Plan Triage Chief Complaint: Abscess ED Provider: Ewa Condon Dx/Rx/DC Orders Clinical Impression: Abscess of scrotal wall, Protein C deficiency Instructions: ED Abscess Antibiotic Treatment Only Prescriptions: New sulfamethoxazole-trimethoprim [Bactrim DS] 800-160 mg tablet 1 tab PO BID Qty: 14 0RF Eliquis DVT-PE Treat 30D Start 5 mg (74 tabs) tablets,dose pack See Rx Instructions .Route .COMPLEX Qty: 74 0RF Rx Instructions: orally per package directions No Action NK Primary Care Provider: Luis Riley Referrals: Luis Riley MD [Primary Care Provider] - Activity Restrictions/Additional Instructions: Restart Eliquis 24 hours after I&D. Take advice as prescribed. Return to progression worsening symptoms. Take ibuprofen up to 600 mg for pain. Please be aware that he cannot take ibuprofen while on the Eliquis Print Language: Lebanese Disposition Disposition: Home, Self Care Discharge Date/Time: 10/25/24 19:44
[2024-10-25 19:00] VITALS: BP 122/95; PULSE 87; RESP 18; TEMP 36.8; O2SAT 96
[2024-10-25 19:32] VITALS: BP 128/87; PULSE 80; RESP 18; TEMP 36.8; O2SAT 96
== END 2024-10-25 19:44 | disposition home or self-care (01) ==
PROVIDERS: Emergency Provider Emergency Medicine; PCP Family Medicine; Visit Provider Emergency Medicine
DX: N49.2 Inflammatory disorders of scrotum (principal); F10.21 Alcohol dependence, in remission; D68.59 Other primary thrombophilia; F17.200 Nicotine dependence, unspecified, uncomplicated; Z86.718 Personal history of other venous thrombosis and embolism; Z86.19 Personal history of other infectious and parasitic diseases
CPT/HCPCS: 55100; 87070; 87077; 87205; 99282